=== PATIENT | female | born 1945 | race Caucasian/White ===

== ENCOUNTER 2016-09-17 12:15 | Emergency (ER) | payer OTHER ==
[~2016-09-17 12:15] MED LIST: CALC500C70 PO; CMBIN INH; ESOM20CA PO; FSM70 PO; MECL1TAB42 PO; MULT-190 PO; NITR0.4S UT; NXM/40 PO; STLS PO
[2016-09-17 12:21] VITALS: TEMP 36.6
[2016-09-17] MEDS ORDERED: ONDANSETRON INJ 2 MG/ML 2 ML VIAL IV STA (12:48)
[2016-09-17 12:58] LABS: BASO % 0.2 %; BASO ABS # 0.02 K/uL (0-0.2); COMPLETE YES; EOS % 0.1 %; HEMATOCRIT 46.3 % (37-47); IG% 0.2 %; LYMPH % 5.5 %; MEAN CORPUSCULAR HEMOGLOBIN 28.1 pg (25-34); MEAN PLATELET VOLUME 10.4 fL (7.4-10.4); MONO % 3.5 %; NEUT % 90.5 %; PLATELET COUNT 250 K/uL (130-400); RED BLOOD COUNT 5.26 M/uL (4.2-5.4); WHITE BLOOD COUNT 9.09 K/uL (4.8-10.8)
[2016-09-17 13:06] LABS: ALT/SGPT 13 U/L (12-78); BLOOD UREA NITROGEN 14 mg/dl (7-18); BUN/CREATININE RATIO 16.9 (10-20); CALCIUM 8.7 mg/dl (8.5-10.1); CARBON DIOXIDE 26 mmol/L (21-32); CHLORIDE 105 mmol/L (98-107); CREATININE 0.83 mg/dl (0.60-1.20); GLUCOSE 122 mg/dl (70-99); SODIUM 141 mmol/L (136-145)
[2016-09-17 13:09] LABS: PARTIAL THROMBOPLASTIN RATIO 1.1; PROTHROMBIN TIME (PATIENT) 10.7 SECONDS (9.0-12.0)
[2016-09-17 13:17] LABS: ALKALINE PHOSPHATASE 109 U/L (45-117); AST/SGOT 12 U/L (15-37); THYROID STIMULATING HORMONE 0.509 uIu/ml (0.300-4.500)
[2016-09-17] MEDS ORDERED: OPTIRAY 320 IV PRN (13:30)
--- NOTE | 2016-09-17 14:06 | DIAGNOSTIC IMAGING REPORT ---
CHEST 2 VIEWS ROUTINE CLINICAL HISTORY: eval for pnea chest pain COMPARISON STUDY: 03/16/2014 FINDINGS: Pelvic atelectasis left base. Lungs otherwise are clear. No evidence for cardiac enlargement. IMPRESSION: Platelike atelectasis left base. Otherwise negative study Electronically signed by: Johny Zee M.D. 09/17/2016 2:04 PM Dictated Date/Time: 09/17/2016 2:04 PM
[2016-09-17] MEDS ORDERED: SENNTAB23 PO (14:17)
[2016-09-17] MEDS ORDERED: IPRA1AER2 INH (14:17)
[2016-09-17] MEDS ORDERED: ZNTT/150 PO (14:18)
[2016-09-17] MEDS ORDERED: PANT40TA PO (14:18)
--- NOTE | 2016-09-17 16:10 | DIAGNOSTIC IMAGING REPORT ---
HEAD CT NONCONTRAST CT DOSE: HISTORY: Mental status change eval for cava TECHNIQUE: Multiaxial CT images of the head were performed without the use of intravenous contrast. Comparison: None. Findings: The paranasal sinuses and mastoid air cells are clear. The calvarium and skull base are intact. The ventricles and sulci are within normal limits. There is no mass, hematoma, midline shift, or acute infarct. Impression: No acute intracranial abnormality. Electronically signed by: Johny Zee M.D. 09/17/2016 4:08 PM Dictated Date/Time: 09/17/2016 4:08 PM
--- NOTE | 2016-09-17 16:16 | DIAGNOSTIC IMAGING REPORT ---
ABDOMEN AND PELVIS CT WITH IV AND ORAL CONTRAST CT DOSE: 1546.81 mGy.cm HISTORY: Pelvic pain eval for diver tic TECHNIQUE: Multiaxial CT images of the abdomen and pelvis were performed following the use of intravenous and oral contrast. COMPARISON STUDY: 10/29/2009 FINDINGS: Lung bases are clear. Small fixed lateral hernia. Liver spleen and pancreas are uniform. Prior cholecystectomy. Several renal peripelvic cysts unchanged in the prior study. No evidence for hydronephrosis. Bowel pattern is considered nonobstructive within the abdomen. Mild chronic sigmoid diverticulosis. No evidence for acute diverticulitis. Bladder is midline. IMPRESSION: Mild chronic sigmoid diverticulosis. 2. No evidence for acute diverticulitis. 3. Otherwise negative abdomen and pelvis post cholecystectomy Electronically signed by: Johny Zee M.D. 09/17/2016 4:15 PM Dictated Date/Time: 09/17/2016 4:12 PM
[2016-09-17 16:47] LABS: URINE APPEARANCE CLEAR (CLEAR); URINE BILIRUBIN NEG (NEG); URINE COLOR YELLOW; URINE NITRITE NEG (NEG); UROBILINOGEN NEG (NEG)
[2016-09-17 16:51] LABS: MANUAL MICROSCOPIC REQUIRED? NO; REVIEW REQ? NO
[2016-09-17 17:09] VITALS: BP 121/73; PULSE 84; O2SAT 95
--- NOTE | 2016-09-17 19:18 | EMERGENCY ROOM VISIT NOTE ---
History Report prepared by [place]: Isela Rosales Under the Supervision of: Dr. Deny Farmer M.D. First contact with patient: 12:33 Chief Complaint: ABDOMINAL PAIN Stated Complaint: ABD PAIN, DIZZY, EARS POPPING Nursing Triage Summary: Lightheaded and has not been able to keep anything down today. Dry heaves. History of Present Illness The patient is a 71 year old female who presents to the Emergency Room with complaints of intermittent dizziness beginning last night. The patient states that last night she felt like she was "drunk" but has not had any alcohol in a very long time. She states that she woke up in the middle of the night to go to the bathroom and felt very unsteady. She notes that she has a history of vertigo and took Meclizine last night without relief of her symptoms. The patient complains of lightheadedness, vomiting, unsteadiness, nausea, mild vertigo, dry heaving, chills, sweating, lower abdominal cramping on the left side, and mild diarrhea this morning that has now resolved. She denies any chest pain or tightness, shortness of breath, blood in stool, black stool, new urinary symptoms, changes in eating or drinking, numbness or weakness on one side of the body, and trouble with speech. The patient states that last night when she was feeling her abdomen she felt a lump on the left side and when she pushed on it, it went back inside of her and her pain went away. She notes that this has been happening for 6 months and returns every few days. She states that the sharp abdominal pain comes when she is raking or walking. 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 She states that her last colonoscopy was when she had her most recent hernia. She reports that she is on an inhaler 4x a day and notes that her overall symptoms improve when she is laying steady. Source of History: patient Onset: last night Position: other (global) Quality: other (dizziness) Timing: intermittent Modifying Factors (Relieving): other (laying steady) Associated Symptoms: + abdominal pain, + chills, + nausea, + vomiting, No SOB, No chest pain, No hematochezia, No melena, No numbness, No weakness Note: The patient complains of lightheadedness, unsteadiness, mild vertigo, dry heaving, sweating, lower abdominal cramping on the left side, and diarrhea this morning that has now resolved. She denies any blood in stool, black stool, changes in eating or drinking, and trouble with speech. Review of Systems See HPI for pertinent positives & negatives. A total of 10 systems reviewed and were otherwise negative. Past Medical & Surgical Medical Problems: (1) Asthma, Unspecified (2) Dehydration (3) Esophageal Reflux (4) Hypertension Nos (5) Loss of consciousness (6) Loss of consciousness (7) Lumb/Lumbosac Disc Degen (8) Macular Degeneration Nos (9) Nasal bone fracture (10) Nasal bone fracture (11) Nausea (12) Osteoporosis Nos (13) Vertigo (14) Vertigo (15) Vertigo (16) Vertigo Surgical Problems: (1) Knee joint replacement status Social History Problems: (1) Osteoporosis Nos Family History Diabetes mellitus Hypertension Social History Smoking Status: Never Smoker Alcohol Use: none Marital Status: Housing Status: lives alone Current/Historical Medications Scheduled Calcium/Vitamin D (Os-Lito 500 Plus D), 1 TAB PO BID Ipratropium-Albuterol (Combivent Respimat), 1 PUFFS INH QID Ocuvite Preservision (Ocuvite Preservision), 1 TAB PO BID Pantoprazole (Protonix), 40 MG PO DAILY Ranitidine (Zantac), 150 MG PO BID Sennosides-Docusate Sodium (Stool Softener), 3 TAB PO DAILY Scheduled PRN Meclizine Hcl (Meclizine Hcl), 25 MG PO TID PRN for DIZZY Nitroglycerin (Nitrostat), 0.4 MG UT PRN PRN for Heartburn Allergies Coded Allergies: Aspirin (Verified Adverse Reaction, Mild, ABD. PAIN AND VOMITING, 09/17/16) Physical Exam Vital Signs Date Time Temp Pulse Resp B/P Pulse Ox O2 Delivery O2 Flow Rate FiO2 09/17/16 17:09 84 20 121/73 95 Room Air 09/17/16 16:19 79 16 169/84 94 Room Air 09/17/16 14:09 78 18 165/88 96 Room Air 09/17/16 13:28 75 09/17/16 12:49 80 153/92 92 Room Air 90 158/93 91 160/94 09/17/16 12:21 36.6 76 18 143/85 96 Room Air Physical Exam Constitutional: Vital signs reviewed. Eyes: Pupils are equal round reactive to light. Conjunctiva are noninjected. ENT: Pharynx is clear without erythema or exudate. Mucous membranes are moist. Neck supple without meningeal signs. No carotid bruits. Respiratory: Clear to auscultation bilaterally. Breath sounds are equal bilaterally. Cardiovascular: Regular rate and rhythm. No rubs or gallops. GI: Soft, nondistended. Bowel sounds are present. LLQ tenderness, no guarding. Musculoskeletal: No peripheral edema. No lower extremity tenderness. Integumentary: No cyanosis. Neurological: The patient is awake and alert. Cranial nerves II-XII are intact. Motor is 5 out of 5 all extremities. Sensation is intact to light touch all extremities. Normal speech. No pronator drift. No dysdiadochokinesis. No limb ataxia. Psychiatric: Anxious. Medical Decision & Procedures ER Provider Diagnostic Interpretation: Other radiology results as stated below per my review and the radiologist's interpretation: HEAD CT NONCONTRAST Findings: The paranasal sinuses and mastoid air cells are clear. The calvarium and skull base are intact. The ventricles and sulci are within normal limits. There is no mass, hematoma, midline shift, or acute infarct. Impression: No acute intracranial abnormality. Electronically signed by: Johny Zee M.D. 09/17/2016 4:08 PM Dictated Date/Time: 09/17/2016 4:08 PM CHEST 2 VIEWS ROUTINE FINDINGS: Pelvic atelectasis left base. Lungs otherwise are clear. No evidence for cardiac enlargement. IMPRESSION: Platelike atelectasis left base. Otherwise negative study Electronically signed by: Johny Zee M.D. 09/17/2016 2:04 PM Dictated Date/Time: 09/17/2016 2:04 PM ABDOMEN AND PELVIS CT WITH IV AND ORAL CONTRAST FINDINGS: Lung bases are clear. Small fixed lateral hernia. Liver spleen and pancreas are uniform. Prior cholecystectomy. Several renal peripelvic cysts unchanged in the prior study. No evidence for hydronephrosis. Bowel pattern is considered nonobstructive within the abdomen. Mild chronic sigmoid diverticulosis. No evidence for acute diverticulitis. Bladder is midline. IMPRESSION: Mild chronic sigmoid diverticulosis. 2. No evidence for acute diverticulitis. 3. Otherwise negative abdomen and pelvis post cholecystectomy Electronically signed by: Johny Zee M.D. 09/17/2016 4:15 PM Dictated Date/Time: 09/17/2016 4:12 PM Laboratory Results 09/17/16 12:30 Red Blood Count 5.26, Mean Corpuscular Volume 88.0, Mean Corpuscular Hemoglobin 28.1, Mean Corpuscular Hemoglobin Concent 32.0, Mean Platelet Volume 10.4, Neutrophils (%) (Auto) 90.5, Lymphocytes (%) (Auto) 5.5, Monocytes (%) (Auto) 3.5, Eosinophils (%) (Auto) 0.1, Basophils (%) (Auto) 0.2, Neutrophils # (Auto) 8.22, Lymphocytes # (Auto) 0.50, Monocytes # (Auto) 0.32, Eosinophils # (Auto) 0.01, Basophils # (Auto) 0.02 09/17/16 12:30 Test 09/17/16 12:30 09/17/16 16:10 White Blood Count 9.09 K/uL (4.8-10.8) Red Blood Count 5.26 M/uL (4.2-5.4) Hemoglobin 14.8 g/dL (12.0-16.0) Hematocrit 46.3 % (37-47) Mean Corpuscular Volume 88.0 fL (80-100) Mean Corpuscular Hemoglobin 28.1 pg (25-34) Mean Corpuscular Hemoglobin Concent 32.0 g/dl (32-36) Platelet Count 250 K/uL (130-400) Mean Platelet Volume 10.4 fL (7.4-10.4) Neutrophils (%) (Auto) 90.5 % Lymphocytes (%) (Auto) 5.5 % Monocytes (%) (Auto) 3.5 % Eosinophils (%) (Auto) 0.1 % Basophils (%) (Auto) 0.2 % Neutrophils # (Auto) 8.22 K/uL (1.4-6.5) Lymphocytes # (Auto) 0.50 K/uL (1.2-3.4) Monocytes # (Auto) 0.32 K/uL (0.11-0.59) Eosinophils # (Auto) 0.01 K/uL (0-0.5) Basophils # (Auto) 0.02 K/uL (0-0.2) RDW Standard Deviation 50.2 fL (36.4-46.3) RDW Coefficient of Variation 15.6 % (11.5-14.5) Immature Granulocyte % (Auto) 0.2 % Immature Granulocyte # (Auto) 0.02 K/uL (0.00-0.02) Prothrombin Time 10.7 SECONDS (9.0-12.0) Prothromb Time International Ratio 1.0 (0.9-1.1) Activated Partial Thromboplast Time 28.5 SECONDS (21.0-31.0) Partial Thromboplastin Ratio 1.1 Anion Gap 10.0 mmol/L (3-11) Estimated GFR () 82.8 Estimated GFR (Non- 71.4 BUN/Creatinine Ratio 16.9 (10-20) Calcium Level 8.7 mg/dl (8.5-10.1) Total Bilirubin 0.6 mg/dl (0.2-1) Direct Bilirubin < 0.1 mg/dl (0-0.2) Aspartate Amino Transf (AST/SGOT) 12 U/L (15-37) Alanine Aminotransferase (ALT/SGPT) 13 U/L (12-78) Alkaline Phosphatase 109 U/L (45-117) Troponin I < 0.015 ng/ml (0-0.045) Total Protein 8.2 gm/dl (6.4-8.2) Albumin 4.1 gm/dl (3.4-5.0) Lipase 107 U/L (73-393) Thyroid Stimulating Hormone (TSH) 0.509 uIu/ml (0.300-4.500) Free Thyroxine 1.11 ng/dl (0.80-1.60) Urine Color YELLOW Urine Appearance CLEAR (CLEAR) Urine pH 7.0 (4.5-7.5) Urine Specific [place] 1.010 (1.000-1.030) Urine Protein NEG (NEG) Urine Glucose (UA) NEG (NEG) Urine Ketones NEG (NEG) Urine Occult Blood NEG (NEG) Urine Nitrite NEG (NEG) Urine Bilirubin NEG (NEG) Urine Urobilinogen NEG (NEG) Urine Leukocyte Esterase NEG (NEG) Laboratory results as reviewed by me. Medications Administered Medications (Trade) Dose Ordered Sig/Barb Route Start Time Stop Time Status Last Admin Dose Admin Ondansetron HCl (Zofran Inj) 4 mg NOW STAT IV 09/17/16 12:48 09/17/16 12:51 DC 09/17/16 13:09 4 MG ECG Indication: abdominal pain Rate (beats per minute): 79 Rhythm: normal sinus Findings: RBBB Comparison ECG Date: March 2014 Change: RBBB is old, QT has lengthened. ED Course 1233: The patient was evaluated in room B5. A complete history and physical exam was performed. 1248: Zofran Inj 4mg IV. 1605: I reevaluated the patient. She is feeling better and is no longer nauseous. She is still lightheaded when she sits up. 1636: According to the nurse the patient ambulated well without difficulty. The patient states that she is feeling better except for some slight dizziness when she stands up. I spoke to her about her test results. 1700: Upon reevaluation, the patient appeared to have improvement of her symptoms. I discussed tonight's findings with the patient. She verbalized agreement of the treatment plan. The patient was discharged home. Medical Decision This is a 71-year-old female who presents with dizziness and abdominal pain. Differential diagnosis includes benign positional vertigo, CVA, metabolic derangement, anemia, cardiac, diverticulitis, mass. I did perform a limited focused review of portions of the patient's old chart on the electronic medical record. The patient had an EGD in March of last year which showed a small hiatal hernia. I did evaluate the patient as noted above. The patient is presenting with dizziness and left lower quadrant abdominal pain. The patient has had abdominal pain for several months. She has not had any significant workup for this. She is tender in the left lower quadrant and so I will work her up for possible diverticulitis. She also complains of dizziness which she describes as a lightheadedness and vertigo feeling when she gets up and moves around. She does state she has a prior history of vertigo and took meclizine with only mild relief. She is neurologically intact on examination. She has no signs of stroke or any cerebellar signs. She has no carotid bruits. IV access was established. 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 We did obtain orthostatic vital signs. She is not orthostatic. I did treat her with Zofran IV. I did order and personally review the patient's 12-lead EKG and chest x-ray as described above. I did order and review the patient's blood work as noted in the electronic medical record. Her blood work is unremarkable. Troponin is negative. Electrolytes are unremarkable. TFTs are within normal limits. She is not anemic. I did order a CT of the head, abdomen and pelvis. I did review the images myself as well as the radiology report as described above. The head CT did not demonstrate any signs of acute abnormality or CVA. Abdominal and pelvis CT demonstrates diverticulosis without signs of diverticulitis. I did reexamine the patient. She is feeling better at this time. She is less dizzy. I did discuss the test results with her in detail. We did ambulate her and she was able to walk without difficulty according to the nurse. At this time the patient stated that she felt well enough for discharge. I did recommend she follow up closely with her doctor within 48 hours for reevaluation. She was given return instructions as outlined below. Impression Primary Impression: LLQ abdominal pain Additional Impressions: Dizziness Diverticulosis Scribe Attestation The scribe's documentation has been prepared under my direct and personally reviewed by me in its entirety. I confirm that the note above accurately reflects all work, treatment, procedures, and medical decision making performed by me. Departure Information Dispostion Home / Self-Care Forms HOME CARE DOCUMENTATION FORM, IMPORTANT VISIT INFORMATION Patient Instructions ED Abd Pain Unkn Cause Fem, ED Diverticulosis, ED Dizziness [facility] [place], [facility] Additional Instructions You have been examined and treated today on an emergency basis only. This is not a substitute for, or an effort to provide, complete comprehensive medical care. It is impossible to recognize and treat all injuries or illnesses in a single emergency department visit. It is therefore important that you follow up closely with your physician within 48 hours. Call as soon as possible for an appointment. Return for worsening symptoms or if you develop fever, vomiting, chest pain, shortness of breath, difficulty with your speech, numbness or weakness on one side of your body or any other concerning symptoms. Problem Qualifiers Additional Impressions: Diverticulosis Diverticulosis site: diverticulosis of large intestine Diverticulosis bleeding: diverticulosis without bleeding Qualified Codes: K57.30 - Diverticulosis of large intestine without perforation or abscess without bleeding
[2016-09-19] MEDS ORDERED: CHOL20007 PO (14:45)
[2016-10-05] MEDS ORDERED: TRAM-10 PO (14:45)
[2016-12-12] MEDS ORDERED: AMOX1TAB43 PO (12:20)
[2016-12-12] MEDS ORDERED: BCTO EXT (12:20)
[2016-12-12] MEDS ORDERED: DABI150C PO (14:14)
[2016-12-13] MEDS ORDERED: TRAM-10 PO (10:09)
[2017-01-02] MEDS ORDERED: VLTG EXT (11:33)
== END 2016-09-17 17:15 | disposition home or self-care (01) ==
LOC: C.EDB 12:16
DX: K57.30 Diverticulosis of large intestine without perforation or abscess without bleeding (principal); R42 Dizziness and giddiness; R68.83 Chills (without fever); R11.2 Nausea with vomiting, unspecified; J45.909 Unspecified asthma, uncomplicated; K21.9 Gastro-esophageal reflux disease without esophagitis; I10 Essential (primary) hypertension; Z79.899 Other long term (current) drug therapy

== ENCOUNTER → 2016-09-28 | Outpatient (CLI) | payer OTHER ==
[~2016-09-28] MED LIST changes: +AMIO200T4 PO; +AMOX1TAB43 PO; +BCTO EXT; +CHOL20007 PO; -CMBIN INH; +CRD200 PO; +DABI150C PO; -ESOM20CA PO; -FSM70 PO; +HYDR-5688 PO; +IPRA1AER2 INH; -NXM/40 PO; +PANT40TA PO; +SENNTAB23 PO; -STLS PO; +TRAM-10 PO; +VLTG EXT; +ZNTT/150 PO
--- NOTE | 2016-09-28 14:06 | DIAGNOSTIC IMAGING REPORT ---
MRI OF THE LUMBAR SPINE WITHOUT IV CONTRAST CLINICAL HISTORY: Lumbar radiculopathy. Left buttock pain. COMPARISON STUDY: Abdominal CT dated 09/17/2016. MRI of the lumbar spine dated 12/21/2010. TECHNIQUE: MRI of the lumbar spine is performed using various T1 and T2-weighted sequences in the axial and sagittal planes. IV contrast was not administered for this examination. FINDINGS: Lumbar spine: Vertebral body height and alignment are maintained throughout the lumbar spine. No destructive bony lesion is seen. Small hemangiomas are noted in the body of L4. The transverse and spinous processes appear intact. There is no evidence of spondylolysis. Intervertebral discs: There is mild degenerative disc desiccation throughout the lumbar spine. The disc heights appear maintained. Spinal cord: Visualized spinal cord is normal in morphology and signal intensity. The conus medullaris terminates at the level of L2. The nerve roots of the cauda equina are normal in morphology. L1-L2: There is minimal posterior disc bulge. The central canal and neural foramina are widely patent. L2-L3: Unremarkable. L3-L4: Facet arthropathy causes mild left neural foraminal stenosis. The central canal is widely patent. L4-L5: There is posterior disc bulge. In conjunction with hypertrophy of the ligamentum flavum, there is minimal acquired compromise of the central canal. The minimum AP diameter measures 9 mm. There is mild bilateral subarticular stenosis. Facet arthropathy causes minimal left-sided neural foraminal narrowing. L5-S1: The central canal is widely patent. Facet arthropathy causes minimal bilateral neural foraminal stenosis. Sacrum: No acute sacral abnormality is identified. There is contour deformity involving S2 consistent with remote fracture. Soft tissues: There is mild fatty atrophy of the paraspinous muscular. The partially imaged kidneys demonstrate cortical atrophy. Parapelvic cysts are noted. IMPRESSION: 1. No acute bony abnormality or marrow replacement process is identified in the lumbar spine. 2. Mild spondylotic change as above. There is minimal acquired compromise of the central canal at L4-L5. See discussion for detailed [id number] analysis. 3. There is contour deformity from a remote sacral fracture. Dictated: 09/28/2016 1:54 PM Transcribed: 09/28/2016 2:05 PM Nathan Electronically signed by: Patricio Arzate M.D. 09/28/2016 2:06 PM Dictated Date/Time: 09/28/2016 1:54 PM
== END | disposition home or self-care (01) ==
LOC: C.MRI 13:00
PROVIDERS: ATTEND Anesthesiology
DX: M54.16 Radiculopathy, lumbar region (principal); M43.8X8 Other specified deforming dorsopathies, sacral and sacrococcygeal region; Z87.828 Personal history of other (healed) physical injury and trauma

== ENCOUNTER 2016-11-12 09:23 | Inpatient (IN) | payer OTHER ==
[~2016-11-12] VITALS: Ht 154.9 cm; Wt 82.8 kg
[2016-11-12] VITALS (11 sets, daily range): BP systolic 111–149; BP diastolic 61–86; PULSE 74–95; TEMP 36.7–36.9; O2SAT 93–99; BMI 34.2
[~2016-11-12 09:23] MED LIST changes: -AMIO200T4 PO; -AMOX1TAB43 PO; -BCTO EXT; -CRD200 PO; -DABI150C PO; -HYDR-5688 PO; -VLTG EXT
[2016-11-12] MEDS ORDERED: SODIUM CHLORIDE 0.9% 1000ML 1,000 ML IV STA (09:43)
[2016-11-12] MEDS ORDERED: ONDANSETRON INJ 2 MG/ML 2 ML VIAL IV STA (09:43)
[2016-11-12] MEDS ORDERED: SODIUM CHLORIDE 0.9% 250ML 250 ML IV STA (09:43)
--- NOTE | 2016-11-12 09:49 | EMERGENCY ROOM VISIT NOTE ---
History Report prepared by Meeibjackelin: Tere Hutton Under the Supervision of: Dr. Ramonita Christianson M.D. First contact with patient: 09:33 Chief Complaint: SYNCOPE (NEAR SYNCOPE) Stated Complaint: PASSED OUT History of Present Illness The patient is a 71 year old female who presents to the Emergency Room with complaints of an episode of syncope that occurred earlier this morning. She states she started to feel lightheaded last night, but didn't think much of it and went to bed early. This morning, she went to the bathroom where she experienced a loose bowel movement and felt nauseated and "wobbly". She then lost consciousness, but does not know how long she was out for. She also complains of right knee pain and notes she hit the knee during the fall. She also experienced some palpitations earlier today. She denies any chest pain or shortness of breath. She denies any recent melena or hematochezia. The patient reports she had been out of state, in [place], until approximately 5 days ago. She admits she has experienced similar syncopal episodes in the past and has been seen here for them. Source of History: patient Onset: earlier this morning Position: other (global) Timing: resolved Associated Symptoms: + LOC, + diarrhea, + nausea, No SOB, No chest pain, No hematochezia, No melena Review of Systems See HPI for pertinent positives & negatives. A total of 10 systems reviewed and were otherwise negative. Past Medical & Surgical Medical Problems: (1) Asthma, Unspecified (2) Complete heart block (3) Dehydration (4) Esophageal Reflux (5) Hypertension Nos (6) Loss of consciousness (7) Loss of consciousness (8) Lumb/Lumbosac Disc Degen (9) Macular Degeneration Nos (10) Nasal bone fracture (11) Nasal bone fracture (12) Nausea (13) Osteoporosis Nos (14) Vertigo (15) Vertigo (16) Vertigo (17) Vertigo Surgical Problems: (1) Knee joint replacement status Social History Problems: (1) Osteoporosis Nos Family History Diabetes mellitus Hypertension Social History Smoking Status: Former Smoker Alcohol Use: none Drug Use: none Marital Status: Housing Status: lives alone Occupation Status: retired Current/Historical Medications Scheduled Calcium/Vitamin D (Os-Lito 500 Plus D), 1 TAB PO BID Cholecalciferol (Vitamin D3), 1 TAB PO DAILY Ipratropium-Albuterol (Combivent Respimat), 1 PUFFS INH QID Ocuvite Preservision (Ocuvite Preservision), 1 TAB PO BID Pantoprazole (Protonix), 40 MG PO DAILY Ranitidine (Zantac), 150 MG PO BID Sennosides-Docusate Sodium (Stool Softener), 3 TAB PO DAILY Scheduled PRN Meclizine Hcl (Meclizine Hcl), 25 MG PO TID PRN for DIZZY Nitroglycerin (Nitrostat), 0.4 MG UT PRN PRN for Heartburn Tramadol (Ultram), 1 TAB PO BID PRN for Pain Allergies Coded Allergies: Aspirin (Verified Adverse Reaction, Mild, ABD. PAIN AND VOMITING, 11/12/16) Physical Exam Vital Signs Date Time Temp Pulse Resp B/P Pulse Ox O2 Delivery O2 Flow Rate FiO2 11/12/16 11:56 73 18 131/89 100 Room Air 11/12/16 10:56 78 18 164/83 100 Nasal Cannula 2.0 11/12/16 10:22 72 16 168/92 100 Nasal Cannula 2.0 11/12/16 10:16 100 Nasal Cannula 2.0 11/12/16 10:11 64 150/78 80 157/87 56 179/103 11/12/16 09:26 36.4 71 18 151/82 96 Room Air Physical Exam Vital signs reviewed. General: Elderly, well-appearing 71 year old female, in no significant distress. HEENT: No scleral icterus, PERRLA, neck supple. Atraumatic. Cardiovascular: Regular rate and rhythm, no extra sounds. Pulmonary: Clear to auscultation bilaterally, normal work of breathing. Abdomen: Soft, nontender, nondistended, positive bowel sounds. Musculoskeletal: Atraumatic, no peripheral edema. Neurologic: Patient awake alert and oriented x 3, full strength in all 4 extremities. Cranial nerves 2 through 12 grossly intact. Skin: Warm, dry, no rash Medical Decision & Procedures ER Provider Diagnostic Interpretation: These CT scans were reviewed and interpreted by the radiologist and reviewed by myself. CT ANGIOGRAPHY OF THE CHEST, PULMONARY EMBOLUS PROTOCOL IMPRESSION: 1. No pulmonary emboli identified. 2. No acute intrathoracic findings. Electronically signed by: Doug Schuler M.D. 11/12/2016 11:[address] OF THE HEAD WITHOUT CONTRAST IMPRESSION: 1. No acute intracranial findings. 2. No calvarial fracture. Electronically signed by: Doug Schuler M.D. 11/12/2016 10:54 AM Laboratory Results 11/12/16 09:40 Red Blood Count 5.17, Mean Corpuscular Volume 86.8, Mean Corpuscular Hemoglobin 26.9, Mean Corpuscular Hemoglobin Concent 31.0, Mean Platelet Volume 9.9, Neutrophils (%) (Auto) 87.1, Lymphocytes (%) (Auto) 6.3, Monocytes (%) (Auto) 5.4, Eosinophils (%) (Auto) 0.7, Basophils (%) (Auto) 0.3, Neutrophils # (Auto) 8.45, Lymphocytes # (Auto) 0.61, Monocytes # (Auto) 0.52, Eosinophils # (Auto) 0.07, Basophils # (Auto) 0.03 11/12/16 09:40 Test 11/12/16 09:40 11/12/16 09:48 White Blood Count 9.70 K/uL (4.8-10.8) Red Blood Count 5.17 M/uL (4.2-5.4) Hemoglobin 13.9 g/dL (12.0-16.0) Hematocrit 44.9 % (37-47) Mean Corpuscular Volume 86.8 fL (80-100) Mean Corpuscular Hemoglobin 26.9 pg (25-34) Mean Corpuscular Hemoglobin Concent 31.0 g/dl (32-36) Platelet Count 212 K/uL (130-400) Mean Platelet Volume 9.9 fL (7.4-10.4) Neutrophils (%) (Auto) 87.1 % Lymphocytes (%) (Auto) 6.3 % Monocytes (%) (Auto) 5.4 % Eosinophils (%) (Auto) 0.7 % Basophils (%) (Auto) 0.3 % Neutrophils # (Auto) 8.45 K/uL (1.4-6.5) Lymphocytes # (Auto) 0.61 K/uL (1.2-3.4) Monocytes # (Auto) 0.52 K/uL (0.11-0.59) Eosinophils # (Auto) 0.07 K/uL (0-0.5) Basophils # (Auto) 0.03 K/uL (0-0.2) RDW Standard Deviation 50.8 fL (36.4-46.3) RDW Coefficient of Variation 15.9 % (11.5-14.5) Immature Granulocyte % (Auto) 0.2 % Immature Granulocyte # (Auto) 0.02 K/uL (0.00-0.02) Anion Gap 6.0 mmol/L (3-11) Est Creatinine Clear Calc Drug Dose 61.9 ml/min Estimated GFR () 84.0 Estimated GFR (Non- 72.5 BUN/Creatinine Ratio 13.5 (10-20) Calcium Level 8.6 mg/dl (8.5-10.1) Magnesium Level 2.4 mg/dl (1.8-2.4) Total Bilirubin 0.5 mg/dl (0.2-1) Direct Bilirubin < 0.1 mg/dl (0-0.2) Aspartate Amino Transf (AST/SGOT) 11 U/L (15-37) Alanine Aminotransferase (ALT/SGPT) 14 U/L (12-78) Alkaline Phosphatase 95 U/L (45-117) Total Creatine Kinase 65 U/L (26-192) Creatine Kinase MB 1.0 ng/ml (0.5-3.6) Creatine Kinase MB Ratio 1.5 (0-3.0) Total Protein 7.5 gm/dl (6.4-8.2) Albumin 3.7 gm/dl (3.4-5.0) Lipase 115 U/L (73-393) Bedside D-Dimer > 450 ng/mlFEU (0-450) Bedside Troponin I 0.000 ng/ml (0-0.045) Laboratory results per my review. Medications Administered Medications (Trade) Dose Ordered Sig/Barb Route Start Time Stop Time Status Last Admin Dose Admin Sodium Chloride (Nss 250ml) 250 ml @ 999 mls/hr Q16M STAT IV 11/12/16 09:43 11/12/16 09:58 DC 11/12/16 09:43 999 MLS/HR Ondansetron HCl (Zofran Inj) 4 mg NOW STAT IV 11/12/16 09:43 11/12/16 09:46 DC 11/12/16 10:16 4 MG ECG Indication: syncope Rate (beats per minute): 65 Rhythm: normal sinus (normal sinus rhythm) Findings: RBBB, no acute ischemic change, other (left atrial enlargement) Change: 2nd EKG after syncopal episode: Normal sinus rhythm, rate of 68, left atrial enlargement, RBBB, no acute ischemia, no significant change from previous EKG. ED Course 0942: Past medical records reviewed. The patient was evaluated in room A2. A complete history and physical examination was performed. 0943: Zofran 4 mg IV, NSS 1000 ml @ 125 mls/hr IV, NSS 250 ml @ 999 mls/hr IV. 1015: Nursing informed me the patient passed out when they tried to stand her up. 1016: I reevaluated the patient. She had a brief episode of near syncope but was uninjured and is now resting comfortably. 1020: A rhythm strip was obtained after the patient's syncopal episode and the patient appears to have a 3rd degree heart block that has resolved. 1104: I discussed the patients case with Dr. Dugan [facility] Hospitalist. The patient will be further evaluated. 1154: I discussed the patients case with Dr. Mendoza [facility] Cardiology. He recommends outpatient follow up. Medical Decision DDx: Etiologies such as vasovagal event, infection, hypoglycemia, electrolyte abnormalities, cardiac sources, intracerebral event, toxicologic, neurologic, as well as others were entertained. This patient was evaluated and appeared to be in no significant distress. Physical examination is fairly unrevealing. Laboratory work is significant only for an elevated d-dimer. Orthostatic vital signs were performed and upon standing the patient had an episode of third degree heart block. Nursing staff placed the patient back in the bed without incident. Repeat EKG was performed and reveals a sinus rhythm. The patient felt well on my reevaluation. She was discussed with the hospitalist service who will evaluate for further management. The CT scan of the chest was negative for PE. Dr. Mendoza of cardiology was consulted and will evaluate the patient for pacemaker placement. Consults Time Called: 1059 Consulting Physician: Dr. Dugan [facility] Hospitalist Returned Call: 1103 I discussed the patients case with Dr. Dugan [facility] Hospitalist. The patient will be further evaluated. Additional Consults: Time Called: 1152 Consulted Physician: Dr. Mendoza [facility] Cardiology Returned Call: 1154 Additional Comments: I discussed the patients case with Dr. Mendoza, [facility] Cardiology. He recommends outpatient follow up. Impression Primary Impression: Syncope Additional Impression: Complete heart block Scribe Attestation The scribe's documentation has been prepared under my direction and personally reviewed by me in its entirety. I confirm that the note above accurately reflects all work, treatment, procedures, and medical decision making performed by me. Departure Information Dispostion Being Evaluated By Hospitalist Referrals Hannah Marshall, C.R.N.P (PCP) Patient Instructions My [facility] Problem Qualifiers
[2016-11-12 09:53] LABS: BASO % 0.3 %; BASO ABS # 0.03 K/uL (0-0.2); COMPLETE YES; EOS % 0.7 %; HEMATOCRIT 44.9 % (37-47); IG% 0.2 %; LYMPH % 6.3 %; LYMPH ABS # 0.61 K/uL (1.2-3.4); MEAN CELL VOLUME 86.8 fL (80-100); MEAN CORPUSCULAR HEMOGLOBIN 26.9 pg (25-34); MEAN PLATELET VOLUME 9.9 fL (7.4-10.4); MONO % 5.4 %; NEUT % 87.1 %; PLATELET COUNT 212 K/uL (130-400); RED BLOOD COUNT 5.17 M/uL (4.2-5.4)
[2016-11-12 10:10] LABS: ALT/SGPT 14 U/L (12-78); BLOOD UREA NITROGEN 11 mg/dl (7-18); BUN/CREATININE RATIO 13.5 (10-20); CALCIUM 8.6 mg/dl (8.5-10.1); CARBON DIOXIDE 28 mmol/L (21-32); CHLORIDE 109 mmol/L (98-107); CREATININE 0.82 mg/dl (0.60-1.20); GLUCOSE 119 mg/dl (70-99); MAGNESIUM 2.4 mg/dl (1.8-2.4); POTASSIUM 4.1 mmol/L (3.5-5.1); SODIUM 143 mmol/L (136-145)
[2016-11-12 10:13] LABS: ALKALINE PHOSPHATASE 95 U/L (45-117); AST/SGOT 11 U/L (15-37); CKMB/CK RATIO 1.5 (0-3.0)
[2016-11-12] MEDS ORDERED: OPTIRAY 320 IV PRN (10:30)
--- NOTE | 2016-11-12 10:55 | DIAGNOSTIC IMAGING REPORT ---
CT OF THE HEAD WITHOUT CONTRAST CLINICAL HISTORY: Syncope, fall, head injury. COMPARISON STUDY: Head CT September 17, 2016. TECHNIQUE: Helical axial images of the head were obtained without IV contrast. Automated exposure control was utilized for the study. FINDINGS: No acute intracranial hemorrhage, midline shift or mass effect is present. Ventricular system is normal. The basilar cisterns are patent. There are no extra-axial collections. Bilateral basal ganglia calcification is present. There are no CT findings to suggest acute dural sinus thrombosis or acute territorial infarct. There is no calvarial fracture. IMPRESSION: 1. No acute intracranial findings. 2. No calvarial fracture. Electronically signed by: Doug Schuler M.D. 11/12/2016 10:54 AM Dictated Date/Time: 11/12/2016 10:50 AM
--- NOTE | 2016-11-12 11:08 | DIAGNOSTIC IMAGING REPORT ---
CT ANGIOGRAPHY OF THE CHEST, PULMONARY EMBOLUS PROTOCOL CLINICAL HISTORY: Syncope. Elevated d-dimer. Third degree heart block. COMPARISON STUDY: Chest radiograph September 17, 2016 TECHNIQUE: Following IV administration of 89 mL of Optiray-320, helical axial images of the chest were obtained utilizing the pulmonary embolus protocol. Maximal intensity projections and sagittal and coronal reformats were viewed on an independent 3D workstation. IV contrast was administered without complication. CT DOSE: 964.60 mGy.cm FINDINGS: No pulmonary emboli are identified. There is no evidence of thoracic aortic dissection. The size of the heart is at the upper limits of normal. There are no enlarged thoracic lymph nodes. Central airways are patent. There are no areas of consolidation. No pneumothorax or pleural effusion is present. There may be a small hiatal hernia. IMPRESSION: 1. No pulmonary emboli identified. 2. No acute intrathoracic findings. Electronically signed by: Doug Schuler M.D. 11/12/2016 11:06 AM Dictated Date/Time: 11/12/2016 10:59 AM
--- NOTE | 2016-11-12 11:48 | DIAGNOSTIC IMAGING REPORT ---
RIGHT KNEE 1 OR 2 VIEWS ROUTINE CLINICAL HISTORY: Right knee pain following fall. COMPARISON: None FINDINGS: Alignment of the total right knee arthroplasty is anatomic. There is no periprosthetic fracture. There is a small right knee joint effusion. IMPRESSION: 1. No periprosthetic fracture. Anatomic alignment of right knee arthroplasty. 2. Suspected small right knee joint effusion. Electronically signed by: Doug Schuler M.D. 11/12/2016 11:46 AM Dictated Date/Time: 11/12/2016 11:45 AM
--- NOTE | 2016-11-12 11:52 | DIAGNOSTIC IMAGING REPORT ---
PA CHEST RADIOGRAPH AND LEFT LATERAL DECUBITUS AND SUPINE AP RADIOGRAPHS OF THE ABDOMEN CLINICAL HISTORY: Diarrhea. Syncope. COMPARISON STUDY: Chest radiograph and CT of the abdomen and pelvis September 17, 2016. FINDINGS: Lung volumes are normal. There is no pneumothorax or pleural effusion. Cardiac size is normal. There is no consolidation. No free air is present on the left lateral to this image. There are cholecystectomy clips and a right femoral internal fixation. There is contrast within the bladder from recent contrast-enhanced CT. Bowel gas pattern is unremarkable. A few prominent loops of gas-filled colon within the right abdomen are unchanged. IMPRESSION: 1. No free air or evidence of bowel obstruction. 2. No acute cardiopulmonary findings. Electronically signed by: Doug Schuler M.D. 11/12/2016 11:51 AM Dictated Date/Time: 11/12/2016 11:47 AM
[2016-11-12] MEDS ORDERED: NITROGLYCERIN 0.4 MG SL PER TAB CHARGE SL PRN (12:15)
[2016-11-12] MEDS ORDERED: ALUMINUM/MAGNESIUM/SIMETH (MAALOX MAX) 30 ML UDC PO PRN (12:15)
[2016-11-12] MEDS ORDERED: MAGNESIUM HYDROXIDE SUSP 30 ML UDC PO PRN (12:15)
[2016-11-12 13:30] LABS: CHOLESTEROL/HDL RATIO 3.8; THYROID STIMULATING HORMONE 0.564 uIu/ml (0.300-4.500)
[2016-11-12 13:41] LABS: PROTHROMBIN TIME (PATIENT) 10.6 SECONDS (9.0-12.0)
--- NOTE | 2016-11-12 15:04 | Critical Care Consultation ---
Critical Care Consultation Date of Consultation: Nov 12, 2016. Attending Physician: Stephanie Alexander MD Reason for Consultation: Complete heart block History of Present Illness The patient is a very pleasant 8-year-old female who presents to the ED this morning after an episode of syncope. She notes that occurred when she is going to the bathroom. She also states that she had an episode of palpitations earlier in the day which resolved on its own so she did not do anything further about it. She states she had a bowel movement, felt lightheaded and nauseous and proceeded to lose consciousness. Before so she does not know how long she lost consciousness for. Waking up she did complain of some soreness in the knee that she suspect occurs when she fell. She does state that in March of 2014, she had one similar symptoms at home, but they resolved on their own and she never sought treatment for it. She never felt any chest pain, short of breath. She is not on any coughing or wheezing. Apart from hypertension, the patient denies any other cardiac disease or cardiovascular risk factors. She's never had a heart attack, she denies having history of congestive heart failure. She's never had stenting or CABG. She did have an echo in which showed an ejection fraction of 60-65%. There is no history of aortic stenosis. Of note she does have a history of vertigo for which she is on meclizine. She denies any recent fevers, chills, night sweats. Her appetite has been good. She has had no difficulty with voiding including urination or bowel movements. She has had no major changes in her weight On arrival to the emergency department, she was noted to be in complete heart block. She was transferred to the ICU, for intensive cardiac monitoring and needs to be evaluated for transcutaneous versus venous pacing. Past Medical/Surgical History Medical Problems: (1) Asthma, Unspecified (2) Complete heart block (3) Dehydration (4) Esophageal Reflux (5) Hypertension Nos (6) Loss of consciousness (7) Loss of consciousness (8) Lumb/Lumbosac Disc Degen (9) Macular Degeneration Nos (10) Nasal bone fracture (11) Nasal bone fracture (12) Nausea (13) Osteoporosis Nos (14) Vertigo (15) Vertigo (16) Vertigo (17) Vertigo Surgical Problems: (1) Knee joint replacement status Social History Problems: (1) Osteoporosis Nos Family History Diabetes mellitus Hypertension Social History Smoking Status: Former Smoker Drug Use: none Marital Status: Housing Status: lives alone Occupation Status: retired Allergies Coded Allergies: Aspirin (Verified Adverse Reaction, Mild, ABD. PAIN AND VOMITING, 11/12/16) Home Medications Scheduled Calcium/Vitamin D (Os-Lito 500 Plus D), 1 TAB PO BID Cholecalciferol (Vitamin D3), 1 TAB PO DAILY Ipratropium-Albuterol (Combivent Respimat), 1 PUFFS INH QID Ocuvite Preservision (Ocuvite Preservision), 1 TAB PO BID Pantoprazole (Protonix), 40 MG PO DAILY Ranitidine (Zantac), 150 MG PO BID Sennosides-Docusate Sodium (Stool Softener), 3 TAB PO DAILY Scheduled PRN Meclizine Hcl (Meclizine Hcl), 25 MG PO TID PRN for DIZZY Nitroglycerin (Nitrostat), 0.4 MG UT PRN PRN for Heartburn Tramadol (Ultram), 1 TAB PO BID PRN for Pain Current Inpatient Medications Current Inpatient Medications Medications (Trade) Dose Ordered Sig/Barb Route Start Time Stop Time Status Last Admin Dose Admin Ioversol (Optiray 320) 125 ml UD PRN IV 11/12/16 10:30 11/16/16 10:29 Heparin Sodium (Porcine) 5000 unit 5,000 unit Q12 SQ 11/12/16 21:00 12/12/16 20:59 Sodium Chloride (Nss 1000ml) 1,000 ml @ 100 mls/hr Q10H IV 11/12/16 12:04 12/12/16 12:03 Acetaminophen (Tylenol Tab) 650 mg Q4H PRN PO 11/12/16 12:15 12/12/16 12:14 Nitroglycerin (Nitrostat Tab) 0.4 mg UD PRN SL 11/12/16 12:15 12/12/16 12:14 Aspirin (Ecotrin Tab) 325 mg QAM PO 11/13/16 09:00 12/13/16 08:59 Al Hydrox/Mg Hydrox/Simethicone (Maalox Max Susp) 15 ml Q4H PRN PO 11/12/16 12:15 12/12/16 12:14 Magnesium Hydroxide (Milk Of Magnesia Susp) 30 ml Q12H PRN PO 11/12/16 12:15 12/12/16 12:14 Ranitidine HCl (zANTac TAB) 150 mg BID PO 11/12/16 21:00 12/12/16 20:59 Review of Systems Constitutional: No chills, No fever, No sweats ENT: No hearing loss, No sore throat, No tinnitus Respiratory: No cough, No sputum, No wheezing Cardiovascular: No chest pain Abdomen: No constipation, No diarrhea, No nausea, No pain, No vomiting Genitourinary - Female: No dysuria, No urinary frequency Hematologic / Lymphatic: No abnormal bleeding/bruising Integumentary: No itch, No new/changing skin lesions, No rash Physical Exam Date Time Temp Pulse Resp B/P Pulse Ox O2 Delivery O2 Flow Rate FiO2 11/12/16 13:26 36.7 76 18 99 Nasal Cannula 2.0 11/12/16 12:52 68 18 132/88 99 11/12/16 11:56 73 18 131/89 100 Room Air 11/12/16 10:56 78 18 164/83 100 Nasal Cannula 2.0 11/12/16 10:22 72 16 168/92 100 Nasal Cannula 2.0 11/12/16 10:16 100 Nasal Cannula 2.0 11/12/16 10:11 64 150/78 80 157/87 56 179/103 11/12/16 09:26 36.4 71 18 151/82 96 Room Air General Appearance: well-appearing, WD/WN Eyes: EOMI, sclerae normal, conjunctivae normal ENT: normal ear exam, normal nasal exam, normal mouth exam Neck: normal range of motion, no tenderness, trachea midline Respiratory: breath sounds normal Cardiovasular: regular rate/rhythm, normal S1S2, no murmur Abdomen: non tender, no masses, no guarding Back: normal inspection, no midline tenderness, no CVA tenderness Upper Extremities: no edema Lower Extremities: no edema Neuro: alert, oriented x 3 Psychiatric: normal affect Laboratory Results Last 24 Hours Test 11/12/16 09:40 11/12/16 09:48 11/12/16 13:19 White Blood Count 9.70 K/uL Red Blood Count 5.17 M/uL Hemoglobin 13.9 g/dL Hematocrit 44.9 % Mean Corpuscular Volume 86.8 fL Mean Corpuscular Hemoglobin 26.9 pg Mean Corpuscular Hemoglobin Concent 31.0 g/dl Platelet Count 212 K/uL Mean Platelet Volume 9.9 fL Neutrophils (%) (Auto) 87.1 % Lymphocytes (%) (Auto) 6.3 % Monocytes (%) (Auto) 5.4 % Eosinophils (%) (Auto) 0.7 % Basophils (%) (Auto) 0.3 % Neutrophils # (Auto) 8.45 K/uL Lymphocytes # (Auto) 0.61 K/uL Monocytes # (Auto) 0.52 K/uL Eosinophils # (Auto) 0.07 K/uL Basophils # (Auto) 0.03 K/uL RDW Standard Deviation 50.8 fL RDW Coefficient of Variation 15.9 % Immature Granulocyte % (Auto) 0.2 % Immature Granulocyte # (Auto) 0.02 K/uL Sodium Level 143 mmol/L Potassium Level 4.1 mmol/L Chloride Level 109 mmol/L Carbon Dioxide Level 28 mmol/L Anion Gap 6.0 mmol/L Blood Urea Nitrogen 11 mg/dl Creatinine 0.82 mg/dl Est Creatinine Clear Calc Drug Dose 61.9 ml/min Estimated GFR () 84.0 Estimated GFR (Non- 72.5 BUN/Creatinine Ratio 13.5 Random Glucose 119 mg/dl Calcium Level 8.6 mg/dl Magnesium Level 2.4 mg/dl Total Bilirubin 0.5 mg/dl Direct Bilirubin < 0.1 mg/dl Aspartate Amino Transf (AST/SGOT) 11 U/L Alanine Aminotransferase (ALT/SGPT) 14 U/L Alkaline Phosphatase 95 U/L Total Creatine Kinase 65 U/L Creatine Kinase MB 1.0 ng/ml Creatine Kinase MB Ratio 1.5 Total Protein 7.5 gm/dl Albumin 3.7 gm/dl Triglycerides Level 221 mg/dl Cholesterol Level 198 mg/dl HDL Cholesterol 52 mg/dl LDL Cholesterol, Calculated 102 mg/dl VLDL Cholesterol, Calculated 44 mg/dl Cholesterol/HDL Ratio 3.8 Lipase 115 U/L Thyroid Stimulating Hormone (TSH) 0.564 uIu/ml Bedside D-Dimer > 450 ng/mlFEU Bedside Troponin I 0.000 ng/ml Prothrombin Time 10.6 SECONDS Prothromb Time International Ratio 1.0 Activated Partial Thromboplast Time 27.2 SECONDS Partial Thromboplastin Ratio 1.0 Diagnostic Results Normal sinus rhythm Possible Left atrial enlargement Right bundle branch block Abnormal ECG When compared with ECG of 12-NOV-2016 09:35, (unconfirmed) No significant change was found Assessment & Plan Pleasant 8-year-old female, who presents with a syncopal episode, and to be in complete heart block in the emergency room. She requires admission to the ICU, for cardiac monitoring. Since arriving to the floor she remains in sinus rhythm. She is chest pain-free, and denies any lightheadedness, dizziness or palpitations. Her problem list includes: - Complete heart block with syncope - Reactive airway disease, otherwise unspecified - Gastro-esophageal reflux disease - Hypertension - Macular degeneration - Osteoporosis - History of vertigo Neurology - GCS 15 - CAM ICU negative - Patient mentating normally. No action needed at this time. Assess daily - History of vertigo: Continue meclizine when necessary - Patient takes tramadol when necessary for pain at home; we can continue this in the ICU setting Cardiac - The patient is currently hemodynamically stable - Cardiology consulted - Echocardiogram ordered - Troponin negative; will continue to trend - Keep monitor at bedside; they need for possible for trans-cutaneous pacing Appreciate recommendations on possible need for transvenous permanent pacemaker Respiratory - Patient has a normal respiratory rate and is currently saturating on room air - Reactive airway disease: Continue Combivent inhaler - Positive d-dimer: CT scan of the lungs was negative Will order Doppler ultrasound of lower extremities Gastrointestinal - GERD: Ranitidine 150 by mouth twice a day Patient also gets Protonix 40 daily according to home med list. Does not need dual agents at this time so will not continue this for now - Diet: The patient will be kept nothing by mouth, in case she needs to have a transvenous pacer emergently placed - Bowel regimen: Senna, milk of magnesia Renal/ Genitourinary / Endocrine - No gross molecular abnormalities at this time - Creatinine 0.82 - Monitor daily urine output: Goal > 0.5 mL/KG/hour - No history of diabetes; can follow daily blood sugars - Osteoporosis: Continue calcium and vitamin D Hematology/Infectious Diseases - Afebrile - WBC 9.7 - Hemoglobin 13.9, hematocrit 44.9 - Platelets 212 - No evidence of infection at this time - DVT prophylaxis: Heparin 5000 subcutaneous 3 times a day CODE STATUS - Level I full code Disposition - ICU for cardiac monitoring, and possible need for pacing Resident Physician Supervision Note: Dr. Posadas was resident physician during care of patient. I separately evaluated patient and did history and exam. I discussed the case with the resident and generally agree with the findings and plan. Patient consented for CVL and transvenous pacing should it be required. Discussed with cardiology, strict bed rest as heart block appears to be preceded or precipitated by vagal response. I have personally spent 36 minutes of critical care time in the direct management of this patient. This is a life/limb threatening event. This includes time spent evaluating patient, direct bedside care, chart review, placing orders, interpretation of diagnostic studies, discussion with consultants, patient, and family members, as well as other required patient management activities. This time is exclusive of all separately billable procedures, and teaching time and separate from and in addition to any other critical care service time. Documented By: Cesar Flores DO
[2016-11-12 15:08] LABS: LYME DISEASE AB IGG NEG (NEG); LYME DISEASE AB IGM NEG (NEG)
--- NOTE | 2016-11-12 16:10 | ECHOCARDIOGRAM REPORT ---
*NOTICE TO RECEIVING [employer] This information is strictly Confidential and protected under [place] law. [place] law prohibits you from making any further disclosure of this information unless further disclosure is expressly permitted by the written consent of the person to whom it pertains or is authorized by law. A general authorization for the release of medical or other information is not sufficient for this purpose. Hospital accepts no responsibility if the information is made available to any other person, INCLUDING THE PATIENT. Interpretation Summary * Name: MOR BARRIGA Study Date: 11/12/2016 02:35 PM BP: 132/88 mmHg * Patient Location: .MSICU\S\E104\S\1 HR: 68 * : 1945 (M/d/y) Gender: Female Height: 61 in * Age: 71 yrs Ethnicity: CA Weight: 180 lb * Ordering Physician: Stephanie Alexander * Performed By: Eveline Pichardo RDCS * * Reason For Study: Syncope * BSA: 1.8 m2 * -- Conclusions -- * 1. Normal left ventricular size with hyperdynamic systolic function. EF 65-70%. No regional wall motion abnormalities. Mild concentric left ventricular hypertrophy. Type 1 diastolic dysfunction. * 2. There is moderate right ventricular hypertrophy. * 3. No significant valvular abnormalities visualized. * 4. No significant change from prior study on 03/17/2014. Procedure Details * A complete two-dimensional transthoracic echocardiogram was performed (2D, M-mode, Doppler and color flow Doppler). * A contrast injection of Definity was performed to improve assessment of LV function. * Contrast was injected into an intravenous site in the left arm. * One vial of Definity ultrasound contrast was diluted in normal saline to a total volume of 10 ml. A total of '2' ml of solution was administered during imaging. * Lot # [id number] of Definity utilized for procedure. * Expiration date NOV 29. * The attending nurse who injected the contrast agent was Rosalia Jackson RN. Left Ventricle * Normal left ventricular size with hyperdynamic systolic function. EF 65-70%. No regional wall motion abnormalities. Mild concentric left ventricular hypertrophy. Type 1 diastolic dysfunction. * Ejection Fraction = >70 %. Right Ventricle * The right ventricle is normal in size and function. * There is moderate right ventricular hypertrophy. Atria * The left atrial size is normal. * Right atrial size is normal. * There is no evidence of atrial septal defect, but resolution does not allow assessment for a patent foramen ovale. Mitral Valve * The mitral valve is grossly normal. * There is no mitral valve stenosis. * Significant mitral regurgitation is absent. Tricuspid Valve * The tricuspid valve is not well visualized, but is grossly normal. * There is no tricuspid stenosis. * There is trace tricuspid regurgitation. Aortic Valve * The aortic valve is trileaflet. * The aortic valve is normal in structure and function. * No hemodynamically significant valvular aortic stenosis. * No aortic regurgitation is present. Pulmonic Valve * The pulmonary valve is inadequately visualized, but the Doppler data is adequate for interpretation. * There is no pulmonic valvular stenosis. * There is no significant pulmonary regurgitation. Great Vessels * The aortic root is normal size. Pericardium/Pleural * Trace pericardial effusion. Great Vessels * Normal inferior vena cava size and collapsability with sniff indicates a normal right atrial pressure of 3 mmHg Left Ventricular Diastolic Function * Grade I diastolic dysfunction, (abnormal relaxation pattern). MMode 2D Measurements and Calculations IVSd 1.3 cm LVIDd 4.0 cm LVIDs 2.6 cm LVPWd 1.2 cm IVS/LVPW 1.1 FS 33.5 % EDV(Teich) 69.2 ml ESV(Teich) 25.7 ml EF(Teich) 62.9 % EDV(cubed) 63.1 ml ESV(cubed) 18.5 ml EF(cubed) 70.6 % LV mass(C)d 175.6 grams LV mass(C)dI 97.2 grams/m\S\2 CO(Teich) 3.3 l/min CI(Teich) 1.8 l/min/m\S\2 SV(Teich) 43.5 ml SI(Teich) 24.1 ml/m\S\2 CO(cubed) 3.3 l/min CI(cubed) 1.9 l/min/m\S\2 SV(cubed) 44.6 ml SI(cubed) 24.7 ml/m\S\2 Ao root diam 2.7 cm Ao root area 5.8 cm\S\2 ACS 1.7 cm LA dimension 2.2 cm LA/Ao 0.81 LVOT diam 2.0 cm LVOT area 3.2 cm\S\2 LVAd ap4 22.7 cm\S\2 LVLd ap4 6.8 cm EDV(MOD-sp4) 61.4 ml EDV(sp4-el) 81.0 ml LVAs ap4 10.4 cm\S\2 LVLs ap4 5.7 cm ESV(MOD-sp4) 16.0 ml ESV(sp4-el) 25.2 ml EF(MOD-sp4) 73.9 % EF(sp4-el) 68.9 % LVAd ap2 15.0 cm\S\2 LVLd ap2 5.9 cm LVAs ap2 6.2 cm\S\2 LVLs ap2 4.2 cm CO(MOD-sp4) 3.4 l/min CI(MOD-sp4) 1.9 l/min/m\S\2 SV(MOD-sp4) 45.4 ml SI(MOD-sp4) 25.1 ml/m\S\2 CO(sp4-el) 4.2 l/min CI(sp4-el) 2.3 l/min/m\S\2 SV(sp4-el) 55.8 ml SI(sp4-el) 30.9 ml/m\S\2 Doppler Measurements and Calculations MV E max ugo 60.1 cm/sec MV A max ugo 89.7 cm/sec MV E/A 0.67 MV dec time 0.37 sec Ao V2 max 106.6 cm/sec Ao max PG 4.5 mmHg Ao max PG (full) 0.47 mmHg JOSE(V,A) 3.0 cm\S\2 JOSE(V,D) 3.0 cm\S\2 LV V1 max PG 4.1 mmHg LV V1 max 100.9 cm/sec PA V2 max 126.2 cm/sec PA max PG 6.4 mmHg PA acc slope 847.0 cm/sec\S\2 PA acc time 0.10 sec RAP systole 3.0 mmHg PA pr(Accel) 36.2 mmHg
--- NOTE | 2016-11-12 16:13 | CARDIOLOGY CONSULTATION ---
DATE OF CONSULTATION: 11/12/2016 TIME: 1517. CONSULTING PHYSICIAN: Dr. Stephanie Hendricks. REASON FOR CONSULTATION: Heart block and syncope. HISTORY OF PRESENT ILLNESS: Ms. Villegas is a very pleasant 71-year-old female with a history significant for hypertension and syncope. She presented to [facility] earlier this morning after a syncopal event. She reports having syncope in March 2014. She was standing at that time and had a syncopal episode with injury. She presented to the hospital and had an unremarkable echocardiogram and no definite etiology for her syncope on objective data. She then in the past year has had 1 or 2 episodes of near syncope when changing positions from a seated to standing position. Today, she had a bowel movement and while still sitting on the commode, her vision became dark. She then had a syncopal episode and found herself lying on the floor. It was unwitnessed as she does live alone. When she awakened, she felt her usual self and contacted her son who brought her to the Emergency Department. While in the Emergency Department, they checked orthostatic vitals. When going from a seated to a standing position, she had a near syncopal episode and fell back into the bed. It was noted that she had third-degree heart block with no ventricular complex for 5+ seconds. She did not lose consciousness however. She then developed nausea and had an episode of emesis. She denies any abdominal cramping, nausea or vomiting prior to the near syncopal episode in the ER. When she regained sinus rhythm with conduction across the AV node, she was completely asymptomatic in that regard other than feeling tired and fatigued. She continues to feel tired, but overall no further near syncope. She denies palpitations today, chest pain, shortness of breath, orthopnea, PND, edema or bleeding such as melena, hematochezia or hematuria. She recently spent 2 weeks in [place] and traveled back and forth via automobile. She does not recall having any tick bite or rash. She did undergo CT scan in the Emergency Department with no evidence of pulmonary emboli. REVIEW OF SYSTEMS: As above and review of systems otherwise negative. PAST MEDICAL HISTORY: 1. Syncope as noted above. 2. COPD. 3. Hypertension. 4. GERD. 5. Osteoporosis. 6. Esophageal stricture. 7. Eustachian tube dysfunction. 8. Hiatal hernia, which causes chest discomfort intermittently with food, for which she sometimes takes nitroglycerin. 9. Macular degeneration and she states that she is deemed legally blind. 10. Vitamin D deficiency. HOME MEDICATIONS: Include Combivent, pantoprazole, ranitidine, meclizine, calcium with vitamin D. INPATIENT MEDICATIONS: Include aspirin 325 mg daily, heparin 5000 units subQ q. 12 hours, ranitidine 150 mg p.o. b.i.d., normal saline at 100 mL per hour. ALLERGIES: ASPIRIN CAUSES GI UPSET. SOCIAL HISTORY: Quit smoking approximately 2 years ago after approximately 30 pack years. No alcohol or drugs. She is a . She lives alone. She has 4 sons. Her one son, Emory, did present at the bedside. FAMILY HISTORY: Brother had CABG near 60 yo. PHYSICAL EXAMINATION: VITAL SIGNS: Temperature 36.7 degrees, heart rate 76 beats per minute, respiration rate 18, blood pressure 132/88 mmHg. Oxygen saturation 99% on 2 liters per nasal cannula. Orthostatics were not abnormal for orthostatic hypotension. Weight 82 kilograms per patient. Official weight is pending. GENERAL: In no acute distress. She is alert and oriented. HEENT: Anicteric sclerae. NECK: No appreciable JVD. No bruits. Normal carotid upstrokes bilaterally. CARDIAC EXAMINATION: PMI was nonpalpable. There was no ventricular heave. Regular, normal S1, S2. No audible murmurs, rubs or gallops. LUNGS: Clear to auscultation bilaterally without wheezes, rales or rhonchi. ABDOMEN: Soft, nontender, nondistended, normoactive bowel sounds, no bruits noted. EXTREMITIES: No cyanosis or edema. No palpable cords. 2+ radial pulses bilaterally. 2+ dorsalis pedis pulses bilaterally. PSYCHIATRIC: Affect appears appropriate. CT scan of the chest, report reviewed. No pulmonary emboli. No acute intrathoracic findings. Head CT report reviewed. No acute intracranial findings. ECG personally reviewed from 10:18 a.m. on 11/12/2016. Sinus rhythm at 68 beats per minute. Right bundle branch block. Telemetry personally reviewed. While in the ICU, so far sinus rhythm with ectopy. No arrhythmia. In the Emergency Department, there was a rhythm strip available for review. A complete heart block for 5+ seconds. Echocardiogram from 03/17/2014, report reviewed. Normal left ventricular systolic function, EF 60-65%. Normal wall motion. No significant valvular abnormalities. LABS on 11/12/16: Na 143; K 4.1; BUN 11; Cr 0.82; Trop 0; TSH 0.564; wbc 9.7; Hbg 13.9; plt 212 ASSESSMENT AND PLAN: 1. Complete heart block: She has transient complete heart block. She also had syncope and had a witnessed near syncopal event in the Emergency Department with transient complete heart block. Heart block is likely the cause of her syncope. There may be a vagal component with her heart block as she did have an episode during a bowel movement. Given the fact though that she has had syncope in the past and continues to have intermittent syncope with heart block, we would recommend pacemaker placement. Electrophysiology consult will be performed when electrophysiology is available on Monday. For the time being, please keep pacer pads in place. If she has recurrent episodes, we will consider transvenous pacemaker as a temporary approach; however, she would like to avoid this unless she has recurrent frequent issues. Agree with Lyme titers, which are pending. TSH was unremarkable. Echocardiogram is pending. 2. Syncope: Likely related to her heart block as witnessed in the ER with a near syncopal event. She was quite symptomatic. Pacemaker recommended as noted above. 3. Hypertension: She has a history of hypertension and has been mostly hypertensive since presentation. Avoid any AV jenny agents. Would not be overly aggressive in treating blood pressure unless she becomes severely hypertensive with symptoms. For now, we would allow some degree of hypertension, so as not to precipitate any hypotension, which will not be tolerated if she has recurrent heart block. 4. Disposition: Cardiology will continue to follow. Electrophysiology has been contacted to make them aware of transient high grade heart block and potential pacemaker placement. Plan of care has also been discussed with Dr. Flroes of the critical care team. Plan of care was also discussed with her son, Emory. Highly complex medical issues. Thank for allowing me to participate in the care of Ms. Villegas. HIRAM
[2016-11-12] MEDS ORDERED: MECLIZINE HCL 25 MG TAB PO PRN (16:30)
[2016-11-12] MEDS ORDERED: NITROGLYCERIN 0.4 MG SL PER TAB CHARGE UT PRN (16:30)
--- NOTE | 2016-11-12 17:13 | History and Physical ---
History & Physical Date & Time of Service: Nov 12, 2016 at 17:03 Chief Complaint: Complete Heart Block Primary Care Physician: Hannah Marshall C.R.N.P History of Present Illness Source: patient, family 71 ears old female with PMH of HTN, GERD and vertigo. she was in her regular state of health until this morning. She was trying to use the bathroom then she passed out for about 15 minutes. She thinks that she hit her right prosthetic knee but no other injuries. She woke up after 15 min and crawled to the the phone and called her son. she was brought to ED by paramedics. found to have a complete heart block with long pause. currently her EKG showed sinus rythm. she does have Hx of vertigo which could be contributed to shorter episodes of heart block. she also had a similar incident last year. that was attributed to her antihypertensive meds which was stopped at that time. currently denies any chest pain or SOB Past Medical/Surgical History Medical Problems: (1) Asthma, Unspecified Status: Chronic (2) Dehydration Status: Resolved (3) Esophageal Reflux Status: Chronic (4) Hypertension Nos Status: Chronic (5) Loss of consciousness Status: Resolved (6) Loss of consciousness Status: Resolved (7) Lumb/Lumbosac Disc Degen Status: Chronic (8) Macular Degeneration Nos Status: Chronic (9) Nasal bone fracture Status: Resolved (10) Nasal bone fracture Status: Resolved (11) Nausea Status: Resolved (12) Osteoporosis Nos Status: Chronic (13) Vertigo Status: Chronic (14) Vertigo Status: Resolved (15) Vertigo Status: Resolved (16) Vertigo Status: Resolved Surgical Problems: (1) Knee joint replacement status Status: Resolved Family History Diabetes mellitus Hypertension father from cancer brother had a heart attack Social History lives by her self independent Smoking Status: Former Smoker Drug Use: none Marital Status: Housing status: lives alone Occupational Status: retired Immunizations History of Influenza Vaccine: Yes Influenza Vaccine Date: Jun 23, 2008 History of Tetanus Vaccine?: Yes History of Pneumococcal: Yes History of Hepatitis B Vaccine: No Multi-Drug Resistant Organisms History of MDRO: No Allergies Coded Allergies: Aspirin (Verified Adverse Reaction, Mild, ABD. PAIN AND VOMITING, 11/12/16) Home Medications Scheduled Calcium/Vitamin D (Os-Lito 500 Plus D), 1 TAB PO BID Cholecalciferol (Vitamin D3), 1 TAB PO DAILY Ipratropium-Albuterol (Combivent Respimat), 1 PUFFS INH QID Ocuvite Preservision (Ocuvite Preservision), 1 TAB PO BID Pantoprazole (Protonix), 40 MG PO DAILY Ranitidine (Zantac), 150 MG PO BID Sennosides-Docusate Sodium (Stool Softener), 3 TAB PO DAILY Scheduled PRN Meclizine Hcl (Meclizine Hcl), 25 MG PO TID PRN for DIZZY Nitroglycerin (Nitrostat), 0.4 MG UT PRN PRN for Heartburn Tramadol (Ultram), 1 TAB PO BID PRN for Pain Review of Systems Constitutional: No chills, No fatigue, No fever, No problem reported, No sweats , No weakness, No weight loss Eyes: No diplopia, No discharge, No eye pain, No problem reported, No redness, No worsening of vision ENT: No dental problems, No hearing loss, No nasal symptoms, No problem reported, No sore throat, No tinnitus, No trouble swallowing, No unusual epistaxis Respiratory: No cough, No dyspnea at rest, No dyspnea on exertion, No hemoptysis, No problem reported, No shortness of breath, No sputum, No wheezing Cardiovascular: + palpitations, No PND, No chest pain, No claudication, No edema, No orthopnea, No problem reported Abdomen: No GI bleeding, No constipation, No diarrhea, No nausea, No pain, No problem reported, No vomiting Musculoskeletal: No calf pain, No joint pain, No muscle pain, No problem reported, No swelling Genitourinary - Female: No dysmenorrhea, No dysuria, No hematuria, No menorrhagia, No metrorrhagia, No , No problem reported, No rash, No urinary frequency, No urinary incontinence, No urinary retention, No urinary urgency, No vaginal bleeding, No vaginal discharge, No vaginal itching, No vulvodynia Neurologic: + vertigo, No balance problems, No memory loss, No numbness/ tingling, No paralysis, No problem reported, No weakness Psychiatric: No anhedonism, No anxiety, No depression symptoms, No insomnia, No problem reported, No substance abuse Endocrine: + fatigue, No excessive thirst, No excessive urination, No problem reported Hematologic / Lymphatic: No abnormal bleeding/bruising, No clotting problems, No night sweats, No problem reported, No swollen lymph nodes Integumentary: No bleeding, No color change, No itch, No new/changing skin lesions, No problem reported, No rash Allergic / Immunologic: No environmental allergies, No food allergies, No frequent infections, No hives, No pet sensitivities, No poor healing, No problem reported, No prolonged convalescence, No seasonal allergies Physical Exam Vital Signs Date Time Temp Pulse Resp B/P Pulse Ox O2 Delivery O2 Flow Rate FiO2 11/12/16 16:00 Nasal Cannula 2.0 11/12/16 13:26 36.7 76 18 99 Nasal Cannula 2.0 11/12/16 12:52 68 18 132/88 99 11/12/16 11:56 73 18 131/89 100 Room Air 11/12/16 10:56 78 18 164/83 100 Nasal Cannula 2.0 11/12/16 10:22 72 16 168/92 100 Nasal Cannula 2.0 11/12/16 10:16 100 Nasal Cannula 2.0 11/12/16 10:11 64 150/78 80 157/87 56 179/103 11/12/16 09:26 36.4 71 18 151/82 96 Room Air General Appearance: no apparent distress Head: normocephalic, atraumatic Eyes: normal inspection, EOMI ENT: normal ENT inspection, hearing grossly normal Neck: supple Respiratory/Chest: chest non-tender, lungs clear, normal breath sounds, no respiratory distress, no accessory muscle use Cardiovascular: regular rate, rhythm, no edema, no gallop, no JVD, no murmur, normal peripheral pulses Abdomen/GI: normal bowel sounds, non tender, soft, no organomegaly, no pulsatile mass, normal rectal exam, occult blood negative Back: normal inspection Extremities/Musculoskelatal: normal inspection, no calf tenderness, no pedal edema, normal range of motion, + pertinent finding (tenderness while passively moving right knee) Neurologic/Psych: engineer systems II-XII nml as tested, no motor/sensory deficits, alert, normal mood/affect, normal reflexes, oriented x 3 Skin: normal color, warm/dry, no rash Diagnostics Laboratory Results Results Past 24 Hours Test 11/12/16 09:40 11/12/16 09:48 11/12/16 13:19 Range/Units White Blood Count 9.70 4.8-10.8 K/uL Red Blood Count 5.17 4.2-5.4 M/uL Hemoglobin 13.9 12.0-16.0 g/dL Hematocrit 44.9 37-47 % Mean Corpuscular Volume 86.8 80-100 fL Mean Corpuscular Hemoglobin 26.9 25-34 pg Mean Corpuscular Hemoglobin Concent 31.0 32-36 g/dl Platelet Count 212 130-400 K/uL Mean Platelet Volume 9.9 7.4-10.4 fL Neutrophils (%) (Auto) 87.1 % Lymphocytes (%) (Auto) 6.3 % Monocytes (%) (Auto) 5.4 % Eosinophils (%) (Auto) 0.7 % Basophils (%) (Auto) 0.3 % Neutrophils # (Auto) 8.45 1.4-6.5 K/uL Lymphocytes # (Auto) 0.61 1.2-3.4 K/uL Monocytes # (Auto) 0.52 0.11-0.59 K/uL Eosinophils # (Auto) 0.07 0-0.5 K/uL Basophils # (Auto) 0.03 0-0.2 K/uL RDW Standard Deviation 50.8 36.4-46.3 fL RDW Coefficient of Variation 15.9 11.5-14.5 % Immature Granulocyte % (Auto) 0.2 % Immature Granulocyte # (Auto) 0.02 0.00-0.02 K/uL Sodium Level 143 136-145 mmol/L Potassium Level 4.1 3.5-5.1 mmol/L Chloride Level 109 98-107 mmol/L Carbon Dioxide Level 28 21-32 mmol/L Anion Gap 6.0 3-11 mmol/L Blood Urea Nitrogen 11 7-18 mg/dl Creatinine 0.82 0.60-1.20 mg/dl Est Creatinine Clear Calc Drug Dose 61.9 ml/min Estimated GFR () 84.0 Estimated GFR (Non- 72.5 BUN/Creatinine Ratio 13.5 10-20 Random Glucose 119 70-99 mg/dl Calcium Level 8.6 8.5-10.1 mg/dl Magnesium Level 2.4 1.8-2.4 mg/dl Total Bilirubin 0.5 0.2-1 mg/dl Direct Bilirubin < 0.1 0-0.2 mg/dl Aspartate Amino Transf (AST/SGOT) 11 15-37 U/L Alanine Aminotransferase (ALT/SGPT) 14 12-78 U/L Alkaline Phosphatase 95 45-117 U/L Total Creatine Kinase 65 26-192 U/L Creatine Kinase MB 1.0 0.5-3.6 ng/ml Creatine Kinase MB Ratio 1.5 0-3.0 Total Protein 7.5 6.4-8.2 gm/dl Albumin 3.7 3.4-5.0 gm/dl Triglycerides Level 221 0-150 mg/dl Cholesterol Level 198 0-200 mg/dl HDL Cholesterol 52 mg/dl LDL Cholesterol, Calculated 102 mg/dl VLDL Cholesterol, Calculated 44 mg/dl Cholesterol/HDL Ratio 3.8 Lipase 115 73-393 U/L Thyroid Stimulating Hormone (TSH) 0.564 0.300-4.500 uIu/ml Bedside D-Dimer > 450 0-450 ng/mlFEU Bedside Troponin I 0.000 0-0.045 ng/ml Prothrombin Time 10.6 9.0-12.0 SECONDS Prothromb Time International Ratio 1.0 0.9-1.1 Activated Partial Thromboplast Time 27.2 21.0-31.0 SECONDS Partial Thromboplastin Ratio 1.0 Lyme Disease IgG Antibody NEG NEG Lyme Disease IgM Antibody NEG NEG Microbiology Results 11/12/16 MRSA DNA Surveillance Screen - Final, Complete Specimen Negative for MRSA by DNA Probe Impression Assessment and Plan Syncope secondary to complete 3rd degree heart block Attach transcutaneous basing pads consult foundry operator serial cardiac enz IVF hydration check potassium , Mag, TSH, lyme disease admit to ICU stat 2D echo HTN currently stable , not on any meds at home chronic vertigo possible secondary to an noticed episodes of heart block Right knee pain xray R/O fracture of dislocation of prosthesis IVF hydration SQ heparin Advanced Directives Existing Living Will: No Existing Power of Spray Booth Operator: No VTE Prophylaxis VTE Risk Assessment Done? Y/N: Yes Risk Level: High
[2016-11-12] MEDS: SODIUM CHLORIDE 0.9% 1000ML 1,000 ML IV SCH ×2 (17:27→21:50)
[2016-11-12] MEDS: IPRATROPIUM BROMIDE/ALBUTEROL respimat INH INH SCH ×2 (17:28→21:53)
[2016-11-12] MEDS ORDERED: RANITIDINE HCL 150 MG TAB PO SCH (21:00)
[2016-11-12] MEDS ORDERED: HEPARIN SOD 5000 UNIT/0.5 ML CARP SQ SCH (21:00)
[2016-11-12] MEDS: RANITIDINE HCL 150 MG TAB PO SCH (21:51)
[2016-11-12] MEDS: CALCIUM 600MG + VIT D 400 IU TAB PO SCH (21:51)
[2016-11-12] MEDS: CEROVITE ADV FORMULA TAB PO SCH (21:52)
[2016-11-12] MEDS: HEPARIN SOD 5000 UNIT/0.5 ML CARP SQ SCH (21:57)
[2016-11-13] VITALS (16 sets, daily range): BP systolic 93–140; BP diastolic 53–82; PULSE 67–87; TEMP 36.7–37; O2SAT 90–97
[2016-11-13] MEDS: ACETAMINOPHEN 325 MG TAB PO PRN ×2 (01:04→21:28)
[2016-11-13] MEDS: HEPARIN SOD 5000 UNIT/0.5 ML CARP SQ SCH ×3 (05:41→21:28)
[2016-11-13 06:15] LABS: BASO % 0.3 %; BASO ABS # 0.02 K/uL (0-0.2); COMPLETE YES; EOS % 1.7 %; LYMPH % 21.1 %; LYMPH ABS # 1.34 K/uL (1.2-3.4); MEAN CORPUSCULAR HEMOGLOBIN 27.1 pg (25-34); MEAN CORPUSCULAR HGB CONC 31.5 g/dl (32-36); MEAN PLATELET VOLUME 9.8 fL (7.4-10.4); MONO % 10.9 %; PLATELET COUNT 200 K/uL (130-400); RED BLOOD COUNT 4.65 M/uL (4.2-5.4); WHITE BLOOD COUNT 6.34 K/uL (4.8-10.8)
[2016-11-13 06:52] LABS: ALT/SGPT 18 U/L (12-78); AST/SGOT 10 U/L (15-37); BLOOD UREA NITROGEN 10 mg/dl (7-18); BUN/CREATININE RATIO 14.3 (10-20); CALCIUM 8.7 mg/dl (8.5-10.1); CARBON DIOXIDE 26 mmol/L (21-32); CHLORIDE 110 mmol/L (98-107); CREATININE 0.72 mg/dl (0.60-1.20); GLUCOSE 89 mg/dl (70-99); MAGNESIUM 2.2 mg/dl (1.8-2.4); POTASSIUM 3.8 mmol/L (3.5-5.1); SODIUM 143 mmol/L (136-145)
[2016-11-13 06:58] LABS: ALKALINE PHOSPHATASE 80 U/L (45-117); PHOSPHORUS 3.5 mg/dl (2.5-4.9)
[2016-11-13] MEDS: IPRATROPIUM BROMIDE/ALBUTEROL respimat INH INH SCH ×4 (08:00→19:36)
[2016-11-13] MEDS: CEROVITE ADV FORMULA TAB PO SCH ×2 (08:01→19:36)
[2016-11-13] MEDS: CALCIUM 600MG + VIT D 400 IU TAB PO SCH ×2 (08:01→19:35)
[2016-11-13] MEDS: DOCUSATE SODIUM/SENNA 50/8.6MG TAB PO SCH (08:01)
[2016-11-13] MEDS: RANITIDINE HCL 150 MG TAB PO SCH ×2 (08:02→19:36)
[2016-11-13] MEDS: CHOLECALCIFEROL 1000 INTER.UNIT TAB PO SCH (08:02)
[2016-11-13] MEDS: SODIUM CHLORIDE 0.9% 1000ML 1,000 ML IV SCH ×2 (08:06→17:53)
[2016-11-13] MEDS ORDERED: ASPIRIN 325 MG ECTAB PO SCH (09:00)
--- NOTE | 2016-11-13 10:43 | CARDIOLOGY PROGRESS NOTE ---
DATE: 11/13/2016 TIME: 9:25 a.m. SUBJECTIVE: She has not had any further episodes of syncope or near syncope. No further transient heart block. She denies chest pain, shortness of breath, palpitations. OBJECTIVE: VITAL SIGNS: Temperature 36.8 degrees, heart rate 67 beats per minute, respiration rate 16, blood pressure 124/70 mmHg, oxygen saturation 92% on room air, weight 83 kg. GENERAL: No acute distress. NECK: No JVD. CARDIAC EXAM: No ventricular heave. Regular, normal S1, S2. No audible murmurs, rubs or gallops. LUNGS: Clear to auscultation bilaterally without wheezes, rales or rhonchi. ABDOMEN: Soft, nontender, nondistended. Normoactive bowel sounds. EXTREMITIES: No cyanosis or edema. PSYCHIATRIC: Affect appears appropriate. MEDICATIONS: Include heparin 5000 units subQ q. 8 hours, ranitidine 150 mg p.o. b.i.d. C. diff is pending. LABORATORY DATA: White blood cell count is 6.34, hemoglobin 12.6, platelets 200. Sodium 143, potassium 3.8, BUN 10, creatinine 0.7, AST 10, ALT 18, albumin 3.3. Stool occult blood is pending. Lyme disease antibodies are negative. Hepatitis C negative. Telemetry personally reviewed. Sinus rhythm, no further arrhythmia since being in the Emergency Department. Echocardiogram performed yesterday demonstrated normal LV size with hyperdynamic systolic function. EF 65-70%. No regional wall motion abnormalities. Mild LVH. Type 1 diastolic dysfunction. Moderate RVH. No significant valvular abnormalities. ASSESSMENT AND PLAN: 1. Syncope: Likely secondary to transient complete heart block as she had a witnessed near syncopal event in the ER with transient third-degree heart block. There appears to be a vasovagal component as an episode happened with a bowel movement at home; however, in the ER, her nausea and vomiting occurred after the event. Recommend consideration for pacemaker placement. Electrophysiology has been made aware of the patient and will be evaluating her tomorrow. She has not had any further high-grade heart block while here and therefore no urgent indication for temporary transvenous pacemaker placement. Would recommend continuing to keep the pacing pads in place for transcutaneous pacing if need be. 2. Transient complete heart block: As above. Plan for EP consult tomorrow for consideration of permanent pacemaker placement for history of recurrent syncope and documented transient complete heart block. 3. Hypertension: History of hypertension; however, her blood pressure has been well controlled over the past afternoon and overnight. No medication is necessary at this time, for her history of hypertension. 4. Disposition: NPO after midnight for possibility of pacemaker placement tomorrow. It is not clear if that will be available tomorrow or Monday, but if electrophysiology agrees with assessment and is able to do so, would like to keep n.p.o. just in case there is availability as to not delay the procedure. The patient's care has been discussed with Dr. Flores of the critical care team.
--- NOTE | 2016-11-13 12:25 | Critical Care Progress Note ---
Critical Care Progress Note Date of Service Nov 13, 2016. ICU Day ICU Day Number: [address] Flores Subjective No events overnight Objective General Appearance: well-appearing, WD/WN Eyes: EOMI, sclerae normal, conjunctivae normal ENT: normal ear exam, normal nasal exam, normal mouth exam Respiratory: breath sounds normal Cardiovasular: regular rate/rhythm, normal S1S2, no murmur Abdomen: non tender, no masses, no guarding Psychiatric: normal affect Assessment & Plan Her problem list includes: - Complete heart block with syncope - Reactive airway disease, otherwise unspecified - Gastro-esophageal reflux disease - Hypertension - Macular degeneration - Osteoporosis - History of vertigo Neurology - GCS 15 - CAM ICU negative - Patient mentating normally. No action needed at this time. Assess daily - History of vertigo: Continue meclizine when necessary - Patient takes tramadol when necessary for pain at home; we can continue this in the ICU setting Cardiac - The patient is currently hemodynamically stable - Cardiology consulted - Echocardiogram ordered - Troponin negative; will continue to trend - Keep monitor at bedside; they need for possible for trans-cutaneous pacing Appreciate recommendations on possible need for transvenous permanent pacemaker Respiratory - Patient has a normal respiratory rate and is currently saturating on room air - Reactive airway disease: Continue Combivent inhaler Gastrointestinal - GERD: Ranitidine 150 by mouth twice a day Patient also gets Protonix 40 daily according to home med list. Does not need dual agents at this time so will not continue this for now - Diet: The patient will be kept nothing by mouth, in case she needs to have a transvenous pacer emergently placed - Bowel regimen: Senna, milk of magnesia Renal/ Genitourinary / Endocrine - No gross molecular abnormalities at this time - Creatinine 0.82 - Monitor daily urine output: Goal > 0.5 mL/KG/hour - No history of diabetes; can follow daily blood sugars - Osteoporosis: Continue calcium and vitamin D Hematology/Infectious Diseases - Afebrile - WBC 9.7 - Hemoglobin 13.9, hematocrit 44.9 - Platelets 212 - No evidence of infection at this time - DVT prophylaxis: Heparin 5000 subcutaneous 3 times a day CODE STATUS - Level I full code Disposition - ICU for cardiac monitoring, and possible need for pacing Plan for possible pacemaker placement [place], nothing by mouth after midnight Consults & Procedures Consultants: Cardiology Procedures: Not applicable Data Medications: Current Inpatient Medications Medications (Trade) Dose Ordered Sig/Barb Route Start Time Stop Time Status Last Admin Dose Admin Ioversol 125 ml 125 ml UD PRN IV 11/12/16 10:30 11/16/16 10:29 Sodium Chloride (Nss 1000ml) 1,000 ml @ 100 mls/hr Q10H IV 11/12/16 12:04 12/12/16 12:03 11/13/16 08:06 100 MLS/HR Acetaminophen (Tylenol Tab) 650 mg Q4H PRN PO 11/12/16 12:15 12/12/16 12:14 11/13/16 01:04 650 MG Al Hydrox/Mg Hydrox/Simethicone (Maalox Max Susp) 15 ml Q4H PRN PO 11/12/16 12:15 12/12/16 12:14 Magnesium Hydroxide (Milk Of Magnesia Susp) 30 ml Q12H PRN PO 11/12/16 12:15 12/12/16 12:14 Ranitidine HCl (zANTac TAB) 150 mg BID PO 11/12/16 21:00 12/12/16 20:59 11/13/16 08:02 150 MG Calcium/Vitamin D (Caltrate Plus Tab) 1 tab BID PO 11/12/16 21:00 12/12/16 20:59 11/13/16 08:01 1 TAB Albuterol/ Ipratropium (Combivent Respimat Inh) 1 puffs QID INH 11/12/16 17:00 12/12/16 16:59 11/13/16 08:00 1 PUFFS Meclizine HCl (Antivert Tab) 25 mg TID PRN PO 11/12/16 16:30 12/12/16 16:29 Nitroglycerin (Nitrostat Tab) 0.4 mg PRN PRN UT 11/12/16 16:30 12/12/16 16:29 Multivitamins/ Minerals (Multivitamin W/ Minerals Tab) 1 tab BID PO 11/12/16 21:00 12/12/16 20:59 11/13/16 08:01 1 TAB Senna/Docusate Sodium (Senokot S Tab) 3 tab DAILY PO 11/13/16 09:00 12/13/16 08:59 11/13/16 08:01 3 TAB Tramadol HCl (Ultram Tab) 50 mg BID PRN PO 11/12/16 16:30 12/12/16 16:29 Cholecalciferol (Vitamin D Tab) 2,000 inter.unit DAILY PO 11/13/16 09:00 12/13/16 08:59 11/13/16 08:02 2,000 INTER.UNIT Heparin Sodium (Porcine) (Heparin Sq 5000 Unit/0.5ml) 5,000 unit Q8 SQ 11/12/16 22:00 12/12/16 21:59 11/13/16 05:41 5,000 UNIT I & O: 24-Hour Column 11/13/16 07:59 Intake Total 1544 ml Balance 1544 ml Vital Signs: Date Time Temp Pulse Resp B/P Pulse Ox O2 Delivery O2 Flow Rate FiO2 11/13/16 11:40 Room Air 11/13/16 11:39 36.8 11/13/16 11:00 71 120/60 93 11/13/16 10:01 73 123/67 95 11/13/16 10:00 74 11/13/16 09:00 87 140/72 90 11/13/16 08:00 36.7 81 122/62 94 11/13/16 08:00 Room Air 11/13/16 07:00 67 116/67 92 11/13/16 06:00 67 16 124/70 92 Room Air 11/13/16 04:00 Nasal Cannula 2.0 11/13/16 04:00 36.8 69 16 113/60 95 Nasal Cannula 2.0 11/13/16 02:00 75 14 118/63 97 Nasal Cannula 2.0 11/13/16 00:01 37.0 78 15 109/57 97 Nasal Cannula 2.0 11/12/16 23:59 Nasal Cannula 2.0 11/12/16 22:00 77 18 130/75 95 Nasal Cannula 2.0 11/12/16 20:00 36.9 90 18 132/86 97 11/12/16 20:00 Nasal Cannula 2.0 11/12/16 19:30 85 16 95 11/12/16 19:00 82 16 111/61 93 11/12/16 18:00 95 135/76 96 11/12/16 17:00 95 115/83 96 11/12/16 16:46 36.7 89 149/81 96 11/12/16 16:00 Nasal Cannula 2.0 11/12/16 16:00 81 96 11/12/16 15:00 75 98 11/12/16 14:00 74 98 11/12/16 13:26 36.7 76 18 99 Nasal Cannula 2.0 11/12/16 12:52 68 18 132/88 99 Laboratory Results: Last 24 Hours Test 11/12/16 13:19 11/12/16 18:00 11/12/16 18:04 11/12/16 21:16 Prothrombin Time 10.6 SECONDS Prothromb Time International Ratio 1.0 Activated Partial Thromboplast Time 27.2 SECONDS Partial Thromboplastin Ratio 1.0 Lyme Disease IgG Antibody NEG Lyme Disease IgM Antibody NEG Creatine Kinase MB 1.3 ng/ml Troponin I < 0.015 ng/ml Creatine Kinase MB Ratio Bedside Glucose 89 mg/dl Test 11/13/16 00:04 11/13/16 00:30 11/13/16 06:04 11/13/16 06:05 Creatine Kinase MB Ratio Creatine Kinase MB 0.8 ng/ml 0.8 ng/ml Troponin I < 0.015 ng/ml < 0.015 ng/ml White Blood Count 6.34 K/uL Red Blood Count 4.65 M/uL Hemoglobin 12.6 g/dL Hematocrit 40.0 % Mean Corpuscular Volume 86.0 fL Mean Corpuscular Hemoglobin 27.1 pg Mean Corpuscular Hemoglobin Concent 31.5 g/dl Platelet Count 200 K/uL Mean Platelet Volume 9.8 fL Neutrophils (%) (Auto) 66.0 % Lymphocytes (%) (Auto) 21.1 % Monocytes (%) (Auto) 10.9 % Eosinophils (%) (Auto) 1.7 % Basophils (%) (Auto) 0.3 % Neutrophils # (Auto) 4.18 K/uL Lymphocytes # (Auto) 1.34 K/uL Monocytes # (Auto) 0.69 K/uL Eosinophils # (Auto) 0.11 K/uL Basophils # (Auto) 0.02 K/uL RDW Standard Deviation 50.5 fL RDW Coefficient of Variation 16.0 % Immature Granulocyte % (Auto) 0.0 % Immature Granulocyte # (Auto) 0.00 K/uL Sodium Level 143 mmol/L Potassium Level 3.8 mmol/L Chloride Level 110 mmol/L Carbon Dioxide Level 26 mmol/L Anion Gap 7.0 mmol/L Blood Urea Nitrogen 10 mg/dl Creatinine 0.72 mg/dl Est Creatinine Clear Calc Drug Dose 71.0 ml/min Estimated GFR () 98.3 Estimated GFR (Non- 84.9 BUN/Creatinine Ratio 14.3 Random Glucose 89 mg/dl Lactic Acid Level 0.7 mmol/L Calcium Level 8.7 mg/dl Phosphorus Level 3.5 mg/dl Magnesium Level 2.2 mg/dl Total Bilirubin 0.5 mg/dl Direct Bilirubin 0.1 mg/dl Aspartate Amino Transf (AST/SGOT) 10 U/L Alanine Aminotransferase (ALT/SGPT) 18 U/L Alkaline Phosphatase 80 U/L Total Protein 6.5 gm/dl Albumin 3.3 gm/dl Hepatitis C Antibody Screen NEG Test 11/13/16 09:15 11/13/16 12:04 11/13/16 12:20 Stool Occult Blood NEGATIVE Creatine Kinase MB Ratio
--- NOTE | 2016-11-13 13:27 | Progress Note ---
Subjective Date of Service: Nov 13, 2016. Subjective Pt evaluation today including: conversation w/ patient, physical exam, chart review, lab review, review of inpatient medication list Problem List Medical Problems: (1) Asthma, Unspecified Status: Chronic (2) Esophageal Reflux Status: Chronic (3) Hypertension Nos Status: Chronic (4) Lumb/Lumbosac Disc Degen Status: Chronic (5) Macular Degeneration Nos Status: Chronic (6) Osteoporosis Nos Status: Chronic (7) Syncope Status: Acute (8) Vertigo Status: Chronic Review of Systems Constitutional: No chills, No fatigue, No fever, No problem reported, No see HPI, No sweats, No weakness, No weight loss Eyes: No diplopia, No discharge, No eye pain, No problem reported, No redness, No see HPI, No worsening of vision ENT: No dental problems, No hearing loss, No nasal symptoms, No problem reported, No see HPI, No sore throat, No tinnitus, No trouble swallowing, No unusual epistaxis Respiratory: No cough, No dyspnea at rest, No dyspnea on exertion, No hemoptysis, No problem reported, No see HPI, No shortness of breath, No sputum, No wheezing Cardiac: No PND, No chest pain, No claudication, No edema, No orthopnea, No palpitations, No problem reported, No see HPI Abdomen: No GI bleeding, No constipation, No diarrhea, No nausea, No pain, No problem reported, No see HPI, No vomiting Musculoskeletal: No calf pain, No joint pain, No muscle pain, No problem reported, No see HPI, No swelling Female : No abnormal vaginal bleeding, No dysuria, No hematuria, No incontinence, No problem reported, No see HPI, No urinary frequency, No vaginal discharge Neurologic: No balance problems, No memory loss, No numbness/tingling, No paralysis, No problem reported, No see HPI, No vertigo, No weakness Psychiatric: No anhedonism, No anxiety, No depression symptoms, No insomnia, No problem reported, No see HPI, No substance abuse Heme: No abnormal bleeding/bruising, No clotting problems, No night sweats, No problem reported, No see HPI, No swollen lymph nodes Endo: No excessive thirst, No excessive urination, No fatigue, No problem reported, No see HPI Skin: No bleeding, No color change, No itch, No new/changing skin lesions, No problem reported, No rash, No see HPI Medications Current Inpatient Medications Medications (Trade) Dose Ordered Sig/Barb Route Start Time Stop Time Status Last Admin Dose Admin Ioversol 125 ml 125 ml UD PRN IV 11/12/16 10:30 11/16/16 10:29 Sodium Chloride (Nss 1000ml) 1,000 ml @ 100 mls/hr Q10H IV 11/12/16 12:04 12/12/16 12:03 11/12/16 21:50 100 MLS/HR Acetaminophen (Tylenol Tab) 650 mg Q4H PRN PO 11/12/16 12:15 12/12/16 12:14 11/13/16 01:04 650 MG Al Hydrox/Mg Hydrox/Simethicone (Maalox Max Susp) 15 ml Q4H PRN PO 11/12/16 12:15 12/12/16 12:14 Magnesium Hydroxide (Milk Of Magnesia Susp) 30 ml Q12H PRN PO 11/12/16 12:15 12/12/16 12:14 Ranitidine HCl (zANTac TAB) 150 mg BID PO 11/12/16 21:00 12/12/16 20:59 11/12/16 21:51 150 MG Calcium/Vitamin D (Caltrate Plus Tab) 1 tab BID PO 11/12/16 21:00 12/12/16 20:59 11/12/16 21:51 1 TAB Albuterol/ Ipratropium (Combivent Respimat Inh) 1 puffs QID INH 11/12/16 17:00 12/12/16 16:59 11/12/16 21:53 1 PUFFS Meclizine HCl (Antivert Tab) 25 mg TID PRN PO 11/12/16 16:30 12/12/16 16:29 Nitroglycerin (Nitrostat Tab) 0.4 mg PRN PRN UT 11/12/16 16:30 12/12/16 16:29 Multivitamins/ Minerals (Multivitamin W/ Minerals Tab) 1 tab BID PO 11/12/16 21:00 12/12/16 20:59 11/12/16 21:52 1 TAB Senna/Docusate Sodium (Senokot S Tab) 3 tab DAILY PO 11/13/16 09:00 12/13/16 08:59 Tramadol HCl (Ultram Tab) 50 mg BID PRN PO 11/12/16 16:30 12/12/16 16:29 Cholecalciferol (Vitamin D Tab) 2,000 inter.unit DAILY PO 11/13/16 09:00 12/13/16 08:59 Heparin Sodium (Porcine) (Heparin Sq 5000 Unit/0.5ml) 5,000 unit Q8 SQ 11/12/16 22:00 12/12/16 21:59 11/13/16 05:41 5,000 UNIT Objective Vital Signs Date Time Temp Pulse Resp B/P Pulse Ox O2 Delivery O2 Flow Rate FiO2 11/13/16 06:00 67 16 124/70 92 Room Air 11/13/16 04:00 Nasal Cannula 2.0 11/13/16 04:00 36.8 69 16 113/60 95 Nasal Cannula 2.0 11/13/16 02:00 75 14 118/63 97 Nasal Cannula 2.0 11/13/16 00:01 37.0 78 15 109/57 97 Nasal Cannula 2.0 11/12/16 23:59 Nasal Cannula 2.0 11/12/16 22:00 77 18 130/75 95 Nasal Cannula 2.0 11/12/16 20:00 36.9 90 18 132/86 97 11/12/16 20:00 Nasal Cannula 2.0 11/12/16 19:30 85 16 95 11/12/16 19:00 82 16 111/61 93 11/12/16 18:00 95 135/76 96 11/12/16 17:00 95 115/83 96 11/12/16 16:46 36.7 89 149/81 96 11/12/16 16:00 Nasal Cannula 2.0 11/12/16 16:00 81 96 11/12/16 15:00 75 98 11/12/16 14:00 74 98 11/12/16 13:26 36.7 76 18 99 Nasal Cannula 2.0 11/12/16 12:52 68 18 132/88 99 11/12/16 11:56 73 18 131/89 100 Room Air 11/12/16 10:56 78 18 164/83 100 Nasal Cannula 2.0 11/12/16 10:22 72 16 168/92 100 Nasal Cannula 2.0 11/12/16 10:16 100 Nasal Cannula 2.0 11/12/16 10:11 64 150/78 80 157/87 56 179/103 11/12/16 09:26 36.4 71 18 151/82 96 Room Air Physical Exam General Appearance: no apparent distress Eyes: normal inspection, EOMI ENT: normal ENT inspection, hearing grossly normal, TMs normal Neck: supple, no adenopathy, thyroid normal Respiratory/Chest: chest non-tender, lungs clear, normal breath sounds, no respiratory distress, no accessory muscle use Cardiovascular: regular rate, rhythm, no edema, no gallop, no JVD, no murmur Abdomen: normal bowel sounds, non tender, soft, no organomegaly, no pulsatile mass Extremities: normal range of motion, non-tender, normal inspection, no pedal edema, no calf tenderness Neurologic/Psychiatric: [facility] hrms consultant II-XII nml as tested, no motor/sensory deficits, alert, normal mood/affect, oriented x 3 Skin: normal color, warm/dry, no rash Laboratory Results Last 24 Hours Test 11/12/16 09:40 11/12/16 09:48 11/12/16 13:19 11/12/16 18:00 White Blood Count 9.70 K/uL Red Blood Count 5.17 M/uL Hemoglobin 13.9 g/dL Hematocrit 44.9 % Mean Corpuscular Volume 86.8 fL Mean Corpuscular Hemoglobin 26.9 pg Mean Corpuscular Hemoglobin Concent 31.0 g/dl Platelet Count 212 K/uL Mean Platelet Volume 9.9 fL Neutrophils (%) (Auto) 87.1 % Lymphocytes (%) (Auto) 6.3 % Monocytes (%) (Auto) 5.4 % Eosinophils (%) (Auto) 0.7 % Basophils (%) (Auto) 0.3 % Neutrophils # (Auto) 8.45 K/uL Lymphocytes # (Auto) 0.61 K/uL Monocytes # (Auto) 0.52 K/uL Eosinophils # (Auto) 0.07 K/uL Basophils # (Auto) 0.03 K/uL RDW Standard Deviation 50.8 fL RDW Coefficient of Variation 15.9 % Immature Granulocyte % (Auto) 0.2 % Immature Granulocyte # (Auto) 0.02 K/uL Sodium Level 143 mmol/L Potassium Level 4.1 mmol/L Chloride Level 109 mmol/L Carbon Dioxide Level 28 mmol/L Anion Gap 6.0 mmol/L Blood Urea Nitrogen 11 mg/dl Creatinine 0.82 mg/dl Est Creatinine Clear Calc Drug Dose 61.9 ml/min Estimated GFR () 84.0 Estimated GFR (Non- 72.5 BUN/Creatinine Ratio 13.5 Random Glucose 119 mg/dl Calcium Level 8.6 mg/dl Magnesium Level 2.4 mg/dl Total Bilirubin 0.5 mg/dl Direct Bilirubin < 0.1 mg/dl Aspartate Amino Transf (AST/SGOT) 11 U/L Alanine Aminotransferase (ALT/SGPT) 14 U/L Alkaline Phosphatase 95 U/L Total Creatine Kinase 65 U/L Creatine Kinase MB 1.0 ng/ml 1.3 ng/ml Creatine Kinase MB Ratio 1.5 Total Protein 7.5 gm/dl Albumin 3.7 gm/dl Triglycerides Level 221 mg/dl Cholesterol Level 198 mg/dl HDL Cholesterol 52 mg/dl LDL Cholesterol, Calculated 102 mg/dl VLDL Cholesterol, Calculated 44 mg/dl Cholesterol/HDL Ratio 3.8 Lipase 115 U/L Thyroid Stimulating Hormone (TSH) 0.564 uIu/ml Bedside D-Dimer > 450 ng/mlFEU Bedside Troponin I 0.000 ng/ml Prothrombin Time 10.6 SECONDS Prothromb Time International Ratio 1.0 Activated Partial Thromboplast Time 27.2 SECONDS Partial Thromboplastin Ratio 1.0 Lyme Disease IgG Antibody NEG Lyme Disease IgM Antibody NEG Troponin I < 0.015 ng/ml Test 11/12/16 18:04 11/12/16 21:16 11/13/16 00:04 11/13/16 00:30 Creatine Kinase MB Ratio Bedside Glucose 89 mg/dl Creatine Kinase MB 0.8 ng/ml Troponin I < 0.015 ng/ml Test 11/13/16 06:04 11/13/16 06:05 Creatine Kinase MB Ratio White Blood Count 6.34 K/uL Red Blood Count 4.65 M/uL Hemoglobin 12.6 g/dL Hematocrit 40.0 % Mean Corpuscular Volume 86.0 fL Mean Corpuscular Hemoglobin 27.1 pg Mean Corpuscular Hemoglobin Concent 31.5 g/dl Platelet Count 200 K/uL Mean Platelet Volume 9.8 fL Neutrophils (%) (Auto) 66.0 % Lymphocytes (%) (Auto) 21.1 % Monocytes (%) (Auto) 10.9 % Eosinophils (%) (Auto) 1.7 % Basophils (%) (Auto) 0.3 % Neutrophils # (Auto) 4.18 K/uL Lymphocytes # (Auto) 1.34 K/uL Monocytes # (Auto) 0.69 K/uL Eosinophils # (Auto) 0.11 K/uL Basophils # (Auto) 0.02 K/uL RDW Standard Deviation 50.5 fL RDW Coefficient of Variation 16.0 % Immature Granulocyte % (Auto) 0.0 % Immature Granulocyte # (Auto) 0.00 K/uL Sodium Level 143 mmol/L Potassium Level 3.8 mmol/L Chloride Level 110 mmol/L Carbon Dioxide Level 26 mmol/L Anion Gap 7.0 mmol/L Blood Urea Nitrogen 10 mg/dl Creatinine 0.72 mg/dl Est Creatinine Clear Calc Drug Dose 71.0 ml/min Estimated GFR () 98.3 Estimated GFR (Non- 84.9 BUN/Creatinine Ratio 14.3 Random Glucose 89 mg/dl Lactic Acid Level 0.7 mmol/L Calcium Level 8.7 mg/dl Phosphorus Level 3.5 mg/dl Magnesium Level 2.2 mg/dl Total Bilirubin 0.5 mg/dl Direct Bilirubin 0.1 mg/dl Aspartate Amino Transf (AST/SGOT) 10 U/L Alanine Aminotransferase (ALT/SGPT) 18 U/L Alkaline Phosphatase 80 U/L Creatine Kinase MB 0.8 ng/ml Troponin I < 0.015 ng/ml Total Protein 6.5 gm/dl Albumin 3.3 gm/dl Assessment and Plan 71 ears old female with PMH of HTN, GERD and vertigo. presented with syncope (also happened about 2 years ago) 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 Syncope secondary to complete 3rd degree heart block currently sinus rythm Attach transcutaneous basing pads consult office associate appreciated, likely will have a pace maker serial cardiac enz are negative so far continue IVF hydration normal potassium , Mag, TSH (0.56), lyme disease titer is negative keep in admit to ICU awaiting 2D echo LDL is 102, HgbA1C is pending HTN currently stable , not on any meds at home chronic vertigo possible secondary to unnoticed episodes of heart block Right knee pain xray ruled out fracture of dislocation of prosthesis SQ heparin Continued [facility] stay due to: other (possible pacemaker placement Monday or ) Discharge planning: home
[2016-11-14] VITALS (20 sets, daily range): BP systolic 111–158; BP diastolic 64–111; PULSE 68–85; TEMP 36.4–37; O2SAT 91–100
[2016-11-14] MEDS: SODIUM CHLORIDE 0.9% 1000ML 1,000 ML IV SCH ×2 (04:04→13:53)
[2016-11-14] MEDS: HEPARIN SOD 5000 UNIT/0.5 ML CARP SQ SCH ×3 (05:28→21:39)
[2016-11-14 05:54] LABS: BASO % 0.5 %; BASO ABS # 0.03 K/uL (0-0.2); COMPLETE YES; EOS % 2.2 %; HEMATOCRIT 40.2 % (37-47); IG% 0.2 %; LYMPH ABS # 1.63 K/uL (1.2-3.4); MEAN CELL VOLUME 85.9 fL (80-100); MEAN CORPUSCULAR HEMOGLOBIN 26.5 pg (25-34); MEAN CORPUSCULAR HGB CONC 30.8 g/dl (32-36); MONO % 9.4 %; NEUT % 61.7 %; PLATELET COUNT 184 K/uL (130-400); RED BLOOD COUNT 4.68 M/uL (4.2-5.4); WHITE BLOOD COUNT 6.26 K/uL (4.8-10.8)
[2016-11-14 06:03] LABS: PROTHROMBIN TIME (PATIENT) 10.4 SECONDS (9.0-12.0)
[2016-11-14 06:19] LABS: ALT/SGPT 13 U/L (12-78); AST/SGOT 9 U/L (15-37); BLOOD UREA NITROGEN 12 mg/dl (7-18); BUN/CREATININE RATIO 15.6 (10-20); CALCIUM 8.5 mg/dl (8.5-10.1); CARBON DIOXIDE 28 mmol/L (21-32); CHLORIDE 109 mmol/L (98-107); CREATININE 0.77 mg/dl (0.60-1.20); GLUCOSE 91 mg/dl (70-99); MAGNESIUM 1.9 mg/dl (1.8-2.4); POTASSIUM 3.9 mmol/L (3.5-5.1); SODIUM 145 mmol/L (136-145)
[2016-11-14 06:21] LABS: ALKALINE PHOSPHATASE 77 U/L (45-117)
[2016-11-14 07:33] LABS: ESTIMATED AVERAGE GLUCOSE 117 mg/dl; HA1C FLAG Normal (Normal)
[2016-11-14] MEDS: RANITIDINE HCL 150 MG TAB PO SCH ×2 (08:26→21:02)
[2016-11-14] MEDS: IPRATROPIUM BROMIDE/ALBUTEROL respimat INH INH SCH ×4 (08:26→21:01)
[2016-11-14] MEDS: CEROVITE ADV FORMULA TAB PO SCH ×2 (09:00→21:02)
--- NOTE | 2016-11-14 10:11 | Procedure Note ---
Pre-Mod Sedation Assessment General Date of Moderate Sedation: Nov 14, 2016. Vital Signs: Vital Signs Past 12 Hours Date Time Temp Pulse Resp B/P Pulse Ox O2 Delivery O2 Flow Rate FiO2 11/14/16 07:30 36.8 85 20 122/75 94 Room Air 11/14/16 07:30 Room Air 11/14/16 07:30 Room Air 11/14/16 06:00 68 20 133/71 93 Room Air 11/14/16 04:00 68 18 111/64 91 Room Air 11/14/16 04:00 95 Room Air 11/14/16 03:52 36.6 74 20 133/71 94 Room Air 11/14/16 02:00 73 18 119/76 92 Room Air 11/13/16 23:59 95 Room Air 11/13/16 23:59 36.8 75 18 93/53 91 Room Air Review Cardiovascular: regular rate, rhythm Lungs: lungs clear Airway Class: II Pre-Sedation Airway Assessment Oral Cavity: Dentures, WNL Able to Visualize Vocal Cords: No Short Thick Neck: No Hx of Sleep Apnea: No Smoking Status: Former Smoker Mallampati Classification: Class II ASA Classification: Class II Procedure Planning Contraindications-for Mod Sed: None Yes Notes The planned sedation has been discussed with the patient and consent obtained. I have identified the patient, determined the appropriateness of sedation and have assessed the patient immediately prior to the procedure. All medicine(s) and interventions are by my order.
[2016-11-14] MEDS ORDERED: CEFAZOLIN SOD 2000 MG in DEXTROSE 5% 50ML IV SCH (11:00)
--- NOTE | 2016-11-14 11:54 | Critical Care Progress Note ---
Critical Care Progress Note Date of Service Nov 14, 2016. ICU Day ICU Day Number: [address] Steele Subjective 71-year-old female with past medical history of hypertension and vertigo here after she experienced a syncopal attack at home after a bowel movement that had lasted for 15 minutes. She was noted to have a transient complete heart block with long pause. Syncopal episode thought to be secondary to transient complete heart block with a vasovagal component. Scheduled for a pacemaker placement today. Denied any events overnight. Denies any chest pain and difficulty breathing but states that every time she needs to use a bedpan or turns over she experiences palpitations and dizziness . Objective General Appearance: well-appearing, WD/WN Eyes: EOMI, sclerae normal, conjunctivae normal ENT: normal ear exam, normal nasal exam, normal mouth exam Respiratory: breath sounds normal Cardiovasular: regular rate/rhythm, normal S1S2, no murmur Abdomen: non tender, no masses, no guarding Psychiatric: normal affect Assessment & Plan 71-year-old female with past medical history of hypertension and vertigo presented after a syncopal episode after having a bowel movement. EKG revealed a transient complete heart block. Currently being monitored in the ICU and scheduled for pacemaker placement later today Neurology - Alert, awake and oriented - History of vertigo: Continue meclizine PRN - Pain control with tramadol as needed(home medication) [facility]: - Transient complete heart block Transvenous permanent pacemaker scheduled for later today Appreciate cardiology input Hypertension: Permissible - No medications for now Respiratory - RAD: Continue Combivent inhaler GI/FEN: - Nothing by mouth since midnight - GERD: Ranitidine 150 by mouth twice a day - Bowel regimen: Senna, milk of magnesia - DVT prophylaxis: Heparin 5000 subcutaneous 3 times a day CODE STATUS - Level I full code Disposition - ICU for cardiac monitoring, pacemaker later today Resident Physician Supervision Note: I was present with Dr. Tracie David during the history and exam. I discussed the case with the resident and agree with the findings and plan as documented in the note. Patient is s/p PPM insertion for intermittent CHB leading to syncopal episodes. Continue post-op care Documented By: Mick Steele MD Consults & Procedures Consultants: Cardiology Procedures: Not applicable Data Medications: Current Inpatient Medications Medications (Trade) Dose Ordered Sig/Barb Route Start Time Stop Time Status Last Admin Dose Admin Ioversol 125 ml 125 ml UD PRN IV 11/12/16 10:30 11/16/16 10:29 Sodium Chloride (Nss 1000ml) 1,000 ml @ 100 mls/hr Q10H IV 11/12/16 12:04 12/12/16 12:03 11/14/16 04:04 100 MLS/HR Acetaminophen (Tylenol Tab) 650 mg Q4H PRN PO 11/12/16 12:15 12/12/16 12:14 11/13/16 21:28 650 MG Al Hydrox/Mg Hydrox/Simethicone (Maalox Max Susp) 15 ml Q4H PRN PO 11/12/16 12:15 12/12/16 12:14 Magnesium Hydroxide (Milk Of Magnesia Susp) 30 ml Q12H PRN PO 11/12/16 12:15 12/12/16 12:14 Ranitidine HCl (zANTac TAB) 150 mg BID PO 11/12/16 21:00 12/12/16 20:59 11/14/16 08:26 150 MG Calcium/Vitamin D (Caltrate Plus Tab) 1 tab BID PO 11/12/16 21:00 12/12/16 20:59 11/13/16 19:35 1 TAB Albuterol/ Ipratropium (Combivent Respimat Inh) 1 puffs QID INH 11/12/16 17:00 12/12/16 16:59 11/14/16 08:26 1 PUFFS Meclizine HCl (Antivert Tab) 25 mg TID PRN PO 11/12/16 16:30 12/12/16 16:29 Nitroglycerin (Nitrostat Tab) 0.4 mg PRN PRN UT 11/12/16 16:30 12/12/16 16:29 Multivitamins/ Minerals (Multivitamin W/ Minerals Tab) 1 tab BID PO 11/12/16 21:00 12/12/16 20:59 11/13/16 19:36 1 TAB Senna/Docusate Sodium (Senokot S Tab) 3 tab DAILY PO 11/13/16 09:00 12/13/16 08:59 11/13/16 08:01 3 TAB Tramadol HCl (Ultram Tab) 50 mg BID PRN PO 11/12/16 16:30 5/1/17 16:29 Cholecalciferol (Vitamin D Tab) 2,000 inter.unit DAILY PO 11/13/16 09:00 12/13/16 08:59 11/13/16 08:02 2,000 INTER.UNIT Heparin Sodium (Porcine) 5000 unit 5,000 unit Q8 SQ 11/12/16 22:00 12/12/16 21:59 11/14/16 05:28 5,000 UNIT Cefazolin Sodium/ Dextrose (Ancef Iv/D5 50ml) 60 ml @ 120 mls/hr TODAY@1100 IV 11/14/16 11:00 11/14/16 23:59 I & O: 24-Hour Column 11/14/16 07:58 Intake Total 3092 ml Output Total 1450 ml Balance 1642 ml Vital Signs: Date Time Temp Pulse Resp B/P Pulse Ox O2 Delivery O2 Flow Rate FiO2 11/14/16 10:26 36.8 70 20 134/79 94 Room Air 11/14/16 10:00 70 134/79 11/14/16 09:00 77 142/80 93 11/14/16 08:17 74 148/81 94 11/14/16 08:00 78 94 11/14/16 08:00 Room Air 11/14/16 07:30 36.8 85 20 122/75 94 Room Air 11/14/16 07:30 Room Air 11/14/16 07:30 Room Air 11/14/16 07:00 76 126/75 95 11/14/16 06:00 68 20 133/71 93 Room Air 11/14/16 04:00 68 18 111/64 91 Room Air 11/14/16 04:00 95 Room Air 11/14/16 03:52 36.6 74 20 133/71 94 Room Air 11/14/16 02:00 73 18 119/76 92 Room Air 11/13/16 23:59 95 Room Air 11/13/16 23:59 36.8 75 18 93/53 91 Room Air 11/13/16 22:00 80 18 126/79 93 Room Air 11/13/16 20:00 36.8 81 18 140/82 94 Room Air 11/13/16 20:00 95 Room Air 11/13/16 15:45 93 Room Air 11/13/16 14:00 80 16 138/73 94 Room Air Laboratory Results: Last 24 Hours Test 11/13/16 12:04 11/13/16 12:20 11/13/16 21:48 11/14/16 05:25 Creatine Kinase MB Ratio Creatine Kinase MB 1.2 ng/ml Troponin I < 0.015 ng/ml Bedside Glucose 115 mg/dl White Blood Count 6.26 K/uL Red Blood Count 4.68 M/uL Hemoglobin 12.4 g/dL Hematocrit 40.2 % Mean Corpuscular Volume 85.9 fL Mean Corpuscular Hemoglobin 26.5 pg Mean Corpuscular Hemoglobin Concent 30.8 g/dl Platelet Count 184 K/uL Mean Platelet Volume 10.0 fL Neutrophils (%) (Auto) 61.7 % Lymphocytes (%) (Auto) 26.0 % Monocytes (%) (Auto) 9.4 % Eosinophils (%) (Auto) 2.2 % Basophils (%) (Auto) 0.5 % Neutrophils # (Auto) 3.86 K/uL Lymphocytes # (Auto) 1.63 K/uL Monocytes # (Auto) 0.59 K/uL Eosinophils # (Auto) 0.14 K/uL Basophils # (Auto) 0.03 K/uL RDW Standard Deviation 50.1 fL RDW Coefficient of Variation 15.8 % Immature Granulocyte % (Auto) 0.2 % Immature Granulocyte # (Auto) 0.01 K/uL Prothrombin Time 10.4 SECONDS Prothromb Time International Ratio 1.0 Sodium Level 145 mmol/L Potassium Level 3.9 mmol/L Chloride Level 109 mmol/L Carbon Dioxide Level 28 mmol/L Anion Gap 8.0 mmol/L Blood Urea Nitrogen 12 mg/dl Creatinine 0.77 mg/dl Est Creatinine Clear Calc Drug Dose 67.8 ml/min Estimated GFR () 90.7 Estimated GFR (Non- 78.2 BUN/Creatinine Ratio 15.6 Random Glucose 91 mg/dl Calcium Level 8.5 mg/dl Phosphorus Level 4.0 mg/dl Magnesium Level 1.9 mg/dl Total Bilirubin 0.3 mg/dl Direct Bilirubin < 0.1 mg/dl Aspartate Amino Transf (AST/SGOT) 9 U/L Alanine Aminotransferase (ALT/SGPT) 13 U/L Alkaline Phosphatase 77 U/L Total Protein 6.3 gm/dl Albumin 3.1 gm/dl Globulin 3.2 gm/dl Albumin/Globulin Ratio 1.0
[2016-11-14] MEDS ORDERED: LIDOCAINE HCL 1% 20 ML VIAL ONE (12:09)
[2016-11-14] MEDS ORDERED: BACITRACIN 50000 UNIT VIAL ONE (12:09)
[2016-11-14] MEDS ORDERED: BUPIVACAINE 0.5 % 5 MG/1 ML MPF 30ML VIAL ONE (12:09)
[2016-11-14] MEDS ORDERED: FENTANYL CITRATE INJ 50 MCG/1 ML 2 ML VIAL ONE (12:26)
[2016-11-14] MEDS ORDERED: MIDAZOLAM HCL 5 MG/ML 1 ML VIAL ONE (12:26)
[2016-11-14] MEDS ORDERED: ACETAMINOPHEN 325 MG TAB PO PRN (13:45)
--- NOTE | 2016-11-14 13:47 | Cardiology Procedure Brief Nt ---
Preliminary Cardiology Note Procedure Date Nov 14, 2016. Pre-Procedure Diagnosis heart block Post-Procedure Diagnosis heart block Procedure(s) Performed implant dual chamber pacemaker Emergency Services Director Pablo Political Advisor(s) p Estimated Blood Loss 5cc Preliminary Findings Succesful placement of dual chamber [employer] pacemaker Recommendations ROutine post-op care. Plan D/C in AM Specimens none
[2016-11-14] MEDS: DOCUSATE SODIUM/SENNA 50/8.6MG TAB PO SCH (14:12)
[2016-11-14] MEDS: CHOLECALCIFEROL 1000 INTER.UNIT TAB PO SCH (14:13)
[2016-11-14] MEDS: CALCIUM 600MG + VIT D 400 IU TAB PO SCH ×2 (14:13→21:01)
[2016-11-14] MEDS ORDERED: ONDANSETRON INJ 2 MG/ML 2 ML VIAL IV STA (15:24)
--- NOTE | 2016-11-14 15:31 | Progress Note ---
Subjective Date of Service: Nov 14, 2016. Subjective Pt evaluation today including: conversation w/ patient, physical exam, lab review, conversation w/ webmethods consultant, review of inpatient medication list Pain: no pain PO Intake: NPO for pacer Voiding: no voiding problems patient doing well this AM, no complaints had some mild right knee pain tolerated dual chamber pacemaker today Problem List Medical Problems: (1) Asthma, Unspecified Status: Chronic (2) Esophageal Reflux Status: Chronic (3) Hypertension Nos Status: Chronic (4) Lumb/Lumbosac Disc Degen Status: Chronic (5) Macular Degeneration Nos Status: Chronic (6) Osteoporosis Nos Status: Chronic (7) Syncope Status: Acute (8) Vertigo Status: Chronic Review of Systems Constitutional: + fatigue, + weakness Musculoskeletal: + joint pain (right knee, from fall with syncope) All Other Systems: Reviewed and Negative Medications Current Inpatient Medications Medications (Trade) Dose Ordered Sig/Barb Route Start Time Stop Time Status Last Admin Dose Admin Ioversol 125 ml 125 ml UD PRN IV 11/12/16 10:30 11/16/16 10:29 Sodium Chloride (Nss 1000ml) 1,000 ml @ 100 mls/hr Q10H IV 11/12/16 12:04 12/12/16 12:03 11/14/16 13:53 100 MLS/HR Al Hydrox/Mg Hydrox/Simethicone (Maalox Max Susp) 15 ml Q4H PRN PO 11/12/16 12:15 12/12/16 12:14 Magnesium Hydroxide (Milk Of Magnesia Susp) 30 ml Q12H PRN PO 11/12/16 12:15 12/12/16 12:14 Ranitidine HCl (zANTac TAB) 150 mg BID PO 11/12/16 21:00 12/12/16 20:59 11/14/16 08:26 150 MG Calcium/Vitamin D (Caltrate Plus Tab) 1 tab BID PO 11/12/16 21:00 12/12/16 20:59 11/14/16 14:13 1 TAB Albuterol/ Ipratropium (Combivent Respimat Inh) 1 puffs QID INH 11/12/16 17:00 12/12/16 16:59 11/14/16 12:03 1 PUFFS Meclizine HCl (Antivert Tab) 25 mg TID PRN PO 11/12/16 16:30 12/12/16 16:29 Nitroglycerin (Nitrostat Tab) 0.4 mg PRN PRN UT 11/12/16 16:30 12/12/16 16:29 Multivitamins/ Minerals (Multivitamin W/ Minerals Tab) 1 tab BID PO 11/12/16 21:00 12/12/16 20:59 11/13/16 19:36 1 TAB Senna/Docusate Sodium (Senokot S Tab) 3 tab DAILY PO 11/13/16 09:00 12/13/16 08:59 11/14/16 14:12 3 TAB Tramadol HCl (Ultram Tab) 50 mg BID PRN PO 11/12/16 16:30 12/12/16 16:29 Cholecalciferol (Vitamin D Tab) 2,000 inter.unit DAILY PO 11/13/16 09:00 12/13/16 08:59 11/14/16 14:13 2,000 INTER.UNIT Heparin Sodium (Porcine) 5000 unit 5,000 unit Q8 SQ 11/12/16 22:00 12/12/16 21:59 11/14/16 05:28 5,000 UNIT Cefazolin Sodium 2000 mg/Dextrose 60 ml @ 120 mls/hr TODAY@1100 IV 11/14/16 11:00 11/14/16 23:59 11/14/16 12:02 120 MLS/HR Cefazolin Sodium/ Dextrose (Ancef Iv/D5 50ml) 60 ml @ 100 mls/hr Q8H IV 11/14/16 22:00 11/15/16 21:59 Acetaminophen (Tylenol Tab) 650 mg Q4H PRN PO 11/14/16 13:45 12/14/16 13:44 Oxycodone HCl (Roxicodone Immediate Rel Tab) 5 mg Q4 PRN PO 11/14/16 13:45 11/28/16 13:44 Ondansetron HCl (Zofran Inj) 4 mg NOW STAT IV 11/14/16 15:24 11/14/16 15:25 UNV Objective Vital Signs Date Time Temp Pulse Resp B/P Pulse Ox O2 Delivery O2 Flow Rate FiO2 11/14/16 14:32 82 158/67 95 11/14/16 14:30 81 93 11/14/16 14:16 85 152/95 96 11/14/16 14:15 78 95 11/14/16 14:00 76 98 11/14/16 13:45 Room Air 11/14/16 13:45 75 140/89 100 11/14/16 13:45 36.4 82 20 148/88 96 Room Air 11/14/16 13:38 77 18 151/97 97 Room Air 11/14/16 13:23 83 18 121/77 98 Nasal Cannula 4 11/14/16 11:30 36.9 82 20 132/86 95 Room Air 11/14/16 11:30 Room Air 11/14/16 10:26 36.8 70 20 134/79 94 Room Air 11/14/16 10:00 70 134/79 11/14/16 09:00 77 142/80 93 11/14/16 08:17 74 148/81 94 11/14/16 08:00 78 94 11/14/16 08:00 Room Air 11/14/16 07:30 36.8 85 20 122/75 94 Room Air 11/14/16 07:30 Room Air 11/14/16 07:30 Room Air 11/14/16 07:00 76 126/75 95 11/14/16 06:00 68 20 133/71 93 Room Air 11/14/16 04:00 68 18 111/64 91 Room Air 11/14/16 04:00 95 Room Air 11/14/16 03:52 36.6 74 20 133/71 94 Room Air 11/14/16 02:00 73 18 119/76 92 Room Air 11/13/16 23:59 95 Room Air 11/13/16 23:59 36.8 75 18 93/53 91 Room Air 11/13/16 22:00 80 18 126/79 93 Room Air 11/13/16 20:00 36.8 81 18 140/82 94 Room Air 11/13/16 20:00 95 Room Air 11/13/16 15:45 93 Room Air Physical Exam General Appearance: WD/WN, no apparent distress Eyes: normal inspection, EOMI, sclerae normal ENT: normal ENT inspection, hearing grossly normal, pharynx normal Neck: supple, no adenopathy, no JVD, trachea midline Respiratory/Chest: chest non-tender, lungs clear, normal breath sounds, no respiratory distress, no accessory muscle use Cardiovascular: regular rate, rhythm, no edema, no gallop, no JVD, no murmur Abdomen: normal bowel sounds, non tender, soft, no organomegaly Extremities: normal range of motion, non-tender, normal inspection, no pedal edema, no calf tenderness, pelvis stable 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, no motor/sensory deficits, alert, normal mood/affect, oriented x 3 Skin: normal color, warm/dry, no rash Lymphatic: no adenopathy Laboratory Results Last 24 Hours Test 11/13/16 21:48 11/14/16 05:25 Bedside Glucose 115 mg/dl White Blood Count 6.26 K/uL Red Blood Count 4.68 M/uL Hemoglobin 12.4 g/dL Hematocrit 40.2 % Mean Corpuscular Volume 85.9 fL Mean Corpuscular Hemoglobin 26.5 pg Mean Corpuscular Hemoglobin Concent 30.8 g/dl Platelet Count 184 K/uL Mean Platelet Volume 10.0 fL Neutrophils (%) (Auto) 61.7 % Lymphocytes (%) (Auto) 26.0 % Monocytes (%) (Auto) 9.4 % Eosinophils (%) (Auto) 2.2 % Basophils (%) (Auto) 0.5 % Neutrophils # (Auto) 3.86 K/uL Lymphocytes # (Auto) 1.63 K/uL Monocytes # (Auto) 0.59 K/uL Eosinophils # (Auto) 0.14 K/uL Basophils # (Auto) 0.03 K/uL RDW Standard Deviation 50.1 fL RDW Coefficient of Variation 15.8 % Immature Granulocyte % (Auto) 0.2 % Immature Granulocyte # (Auto) 0.01 K/uL Prothrombin Time 10.4 SECONDS Prothromb Time International Ratio 1.0 Sodium Level 145 mmol/L Potassium Level 3.9 mmol/L Chloride Level 109 mmol/L Carbon Dioxide Level 28 mmol/L Anion Gap 8.0 mmol/L Blood Urea Nitrogen 12 mg/dl Creatinine 0.77 mg/dl Est Creatinine Clear Calc Drug Dose 67.8 ml/min Estimated GFR () 90.7 Estimated GFR (Non- 78.2 BUN/Creatinine Ratio 15.6 Random Glucose 91 mg/dl Calcium Level 8.5 mg/dl Phosphorus Level 4.0 mg/dl Magnesium Level 1.9 mg/dl Total Bilirubin 0.3 mg/dl Direct Bilirubin < 0.1 mg/dl Aspartate Amino Transf (AST/SGOT) 9 U/L Alanine Aminotransferase (ALT/SGPT) 13 U/L Alkaline Phosphatase 77 U/L Total Protein 6.3 gm/dl Albumin 3.1 gm/dl Globulin 3.2 gm/dl Albumin/Globulin Ratio 1.0 Assessment and Plan 71 yo female with PMH of HTN, GERD and vertigo. presented with syncope (also happened about 2 years ago) 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 - Syncope: suspected to be due to 3rd degree heart block seen transiently on telemetry returned to sinus rhythm, did not require transcutaneous pacing dual chamber pacemaker implanted on 11/14, [facility] well [facility], electrolytes and Lyme titer negative, cardiac enzymes normal echo: EF 65-70%, grade I diastolic dysfunction - Hypertension: BP stable, no medications currently - Right knee pain: from fall, no swelling or bruising, no periprosthetic fractures seen on x-ray plan: transfer to [facility], likely d/c home tomorrow Continued [facility] stay due to: other Discharge planning: home
[2016-11-14] MEDS: TRAMADOL HCL 50 MG TAB PO PRN (15:46)
--- NOTE | 2016-11-14 17:28 | Procedure Note ---
Post-Moderate Sedation Plan General Date of Moderate Sedation Nov 14, 2016. Vital Signs: Vital Signs Past 12 Hours Date Time Temp Pulse Resp B/P Pulse Ox O2 Delivery O2 Flow Rate FiO2 11/14/16 14:32 82 158/67 95 11/14/16 14:30 81 93 11/14/16 14:16 85 152/95 96 11/14/16 14:15 78 95 11/14/16 14:00 76 98 11/14/16 13:45 Room Air 11/14/16 13:45 75 140/89 100 11/14/16 13:45 36.4 82 20 148/88 96 Room Air 11/14/16 13:38 77 18 151/97 97 Room Air 11/14/16 13:23 83 18 121/77 98 Nasal Cannula 4 11/14/16 11:30 36.9 82 20 132/86 95 Room Air 11/14/16 11:30 Room Air 11/14/16 10:26 36.8 70 20 134/79 94 Room Air 11/14/16 10:00 70 134/79 11/14/16 09:00 77 142/80 93 11/14/16 08:17 74 148/81 94 11/14/16 08:00 78 94 11/14/16 08:00 Room Air 11/14/16 07:30 36.8 85 20 122/75 94 Room Air 11/14/16 07:30 Room Air 11/14/16 07:30 Room Air 11/14/16 07:00 76 126/75 95 11/14/16 06:00 68 20 133/71 93 Room Air Review - Discharge Plan Post Moderate Sedation Plan: On clinical assessment, the patient appears to have tolerated the conscious sedation without complications. Patient is recovering as anticipated. Patient will continue to be monitored by nursing and may be discharged when conscious sedation discharge criteria are met.
--- NOTE | 2016-11-14 19:31 | CARDIOLOGY CONSULTATION ---
DATE OF CONSULTATION: 11/14/2016 ELECTROPHYSIOLOGY CONSULTATION REFERRING PHYSICIAN: Dr. Ganga Mendoza. CHIEF COMPLAINT: Complete heart block and syncope. HISTORY OF PRESENT ILLNESS: Mrs. Nadiya Villegas is a 71-year-old woman without a known history of heart disease who has had episodes of syncope over approximately 2 years. During this admission, the patient experienced an episode of syncope in the bathroom. It appears that she was having a bowel movement and may have finished her bowel movement. When she attempted to leave, she did experience symptoms of presyncope such as dizziness and some visual changes prior to passing out. The duration of her loss of consciousness is unclear as no one was home at that time. Upon waking up, she generally felt well, although she did suffer a minor injury to her right hip. 911 was summoned and she was brought to [facility] for an additional evaluation. While in the Emergency Room, the patient was undergoing an evaluation when she experienced similar symptoms and was witnessed to have an episode of complete heart block associated with brief syncope. The patient has been on telemetry monitoring since that time without any additional rhythm problems or recurrent syncope. Approximately 2 years ago, the patient developed similar symptoms. She was in the bathroom and had a syncopal episode. En route to the hospital, the patient also had an episode of syncope in the car. Evaluation at that time was unrevealing for an etiology. 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 OUTPATIENT MEDICATIONS: Include Combivent, pantoprazole, ranitidine, meclizine and calcium supplementation. MEDICAL ALLERGIES: ASPIRIN. SOCIAL HISTORY: The patient has a remote history of tobacco abuse, totaling approximately 30 pack years, currently a nonsmoker. She denies significant alcohol abuse. FAMILY HISTORY: Insignificant, given her age; however, not positive for premature coronary artery disease. REVIEW OF SYSTEMS: Complete 10-system review of systems was performed and the pertinent positives are noted in the history of present illness and the remainder of the review of systems was negative. She has not had any recent constitutional symptoms. She has some difficulty with ambulation due to her visual disturbance. She has had some loose stools recently, but no other abdominal complaints. PHYSICAL EXAMINATION: GENERAL: She was alert and oriented, mood and affect appeared normal. She answered all questions appropriately. VITAL SIGNS: Include blood pressure 148/88 with pulse of 75. HEENT: Her sclerae are anicteric. Extraocular movements appear to be intact. Palpation of submandibular region did not reveal any significant lymphadenopathy. The carotids are palpable bilaterally. There are no bruits on auscultation. I did not appreciate jugular venous distention. Thyroid is not enlarged. LUNGS: Auscultation of both lung chavez reveal them to be clear. There were no rales, wheezes or rhonchi. She had good respiratory effort without use of accessory muscles. CARDIAC EXAMINATION: Revealed her to be in a regular rhythm. I did not appreciate any murmurs on examination. S1 and S2 appeared to be normal. The PMI was not markedly displaced on palpation. ABDOMEN: Soft and nontender. EXTREMITIES: Evaluation of both wrists revealed radial pulses that were equal in intensity. There is no evidence of cyanosis or clubbing. Evaluation of the lower extremities did not reveal any significant peripheral edema. SKIN: I do not appreciate any rashes on examination today. LABORATORY STUDIES: Laboratory studies obtained at [facility] included a white cell count of 6.2, hemoglobin of 12.4, platelet count of 184. Sodium is 145, potassium is 3.4, BUN was 12, creatinine was 0.7. 12-lead EKGs were obtained, which did not reveal any notable conduction abnormality. A telemetry strip from the Emergency Room was available for review and this did reveal complete heart block with associated periods of ventricular asystole. A PE protocol had been obtained in the Emergency Room, which did not reveal any evidence of acute thrombus. Chest x-ray was also obtained, which did not reveal any notable abnormality. Echocardiogram was also obtained at the time of admission, which revealed the patient to have preserved left ventricular systolic function without evidence of significant valvular heart disease. ASSESSMENT AND PLAN: Complete heart block: This was transient in nature but certainly associated with the patient's symptoms. It will be plausible to believe that other episodes of syncope were associated with the same problem. She does have baseline right bundle-branch block, but otherwise no significant conduction disease. The etiology of her conduction problems is likely age related. It is unclear whether this was entirely vagally mediated although unlikely, given the strips recorded. At this point, I think implantation of a pacemaker would be indicated based on the correlation between symptoms and conduction disease. I did discuss the risks, benefits, and alternatives with the patient and she is likely to proceed later today.
[2016-11-14] MEDS: OXYCODONE HCL IR 5 MG TAB (IMMEDIATE RELEASE) PO PRN (21:01)
[2016-11-14] MEDS: CEFAZOLIN IV 2,000 MG in DEXTROSE 5% 50ML 50 ML IV SCH (21:38)
[2016-11-15] VITALS (80 sets, daily range): BP systolic 56–158; BP diastolic 30–120; PULSE 37–136; TEMP 36–37.1; O2SAT 87–98; Ht 154.9 cm; Wt 82.8 kg
[2016-11-15] MEDS: OXYCODONE HCL IR 5 MG TAB (IMMEDIATE RELEASE) PO PRN ×2 (03:29→20:34)
[2016-11-15 05:43] LABS: HEMATOCRIT 39.9 % (37-47); MEAN CELL VOLUME 85.3 fL (80-100); MEAN CORPUSCULAR HEMOGLOBIN 27.1 pg (25-34); MEAN CORPUSCULAR HGB CONC 31.8 g/dl (32-36); MEAN PLATELET VOLUME 9.9 fL (7.4-10.4); PLATELET COUNT 194 K/uL (130-400); RED BLOOD COUNT 4.68 M/uL (4.2-5.4); WHITE BLOOD COUNT 8.67 K/uL (4.8-10.8)
[2016-11-15] MEDS ORDERED: CEFAZOLIN SOD 1000MG/55 ML D5W IV SCH (06:00)
[2016-11-15] MEDS ORDERED: CEFAZOLIN SOD 2000 MG in DEXTROSE 5% 50ML IV SCH (06:00)
[2016-11-15] MEDS: CEFAZOLIN IV 2,000 MG in DEXTROSE 5% 50ML 50 ML IV SCH ×2 (06:28→14:00)
[2016-11-15] MEDS: HEPARIN SOD 5000 UNIT/0.5 ML CARP SQ SCH ×2 (06:29→14:00)
[2016-11-15 06:50] LABS: ALKALINE PHOSPHATASE 82 U/L (45-117); ALT/SGPT 13 U/L (12-78); AST/SGOT 11 U/L (15-37); BLOOD UREA NITROGEN 10 mg/dl (7-18); BUN/CREATININE RATIO 12.5 (10-20); CALCIUM 10.6 mg/dl (8.5-10.1); CARBON DIOXIDE 31 mmol/L (21-32); CHLORIDE 104 mmol/L (98-107); CREATININE 0.81 mg/dl (0.60-1.20); GLUCOSE 103 mg/dl (70-99); POTASSIUM 4.1 mmol/L (3.5-5.1); SODIUM 140 mmol/L (136-145)
--- NOTE | 2016-11-15 07:08 | DIAGNOSTIC IMAGING REPORT ---
CHEST 2 VIEWS ROUTINE CLINICAL HISTORY: Pacemaker placement COMPARISON STUDY: No previous studies for comparison. FINDINGS: The heart is normal in size. There is a left subclavian dual-chamber central venous pacemaker. Electrodes position is unremarkable. There is no pneumothorax. There are linear bibasilar opacities, likely atelectatic. There is no failure. There is no lobar consolidation. There is no significant pleural fluid.[ IMPRESSION: No evidence of pneumothorax status post left subclavian dual-chamber central venous pacemaker placement. Electronically signed by: Danny Veras M.D. 11/15/2016 7:06 AM Dictated Date/Time: 11/15/2016 7:04 AM
--- NOTE | 2016-11-15 07:09 | OPERATIVE REPORT ---
DATE OF OPERATION: 11/14/2016 PACEMAKER IMPLANTATION REPORT PROCEDURE PERFORMED: Implantation of dual chamber permanent pacemaker. 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 Ron Shah. INDICATION: Mrs. Nadiya Villegas is a 71-year-old woman who presented with an episode of syncope with complete heart block. Based on the documented arrhythmia and her symptoms, she was felt to be a good candidate for pacemaker implantation due to symptomatic nonreversible AV node dysfunction. Dual chamber device was selected as the patient is currently in sinus rhythm and wished to maintain AV synchrony. PROCEDURE IN DETAIL: The patient was informed of risks, benefits and alternatives to the intended procedure. She understood such and wished to proceed. She was taken to the electrophysiology suite in a fasting state. A preoperative antibiotic had been administered. The patient was monitored electrocardiographically throughout today's procedure and conscious sedation was administered per protocol. The left pectoral area was prepped and draped in usual sterile fashion. This area was then anesthetized using subcutaneous administration of lidocaine solution. An incision was made, dissection carried down the prepectoralis fascia using sharp dissection. Electrocautery was also employed for dissection as well as for hemostasis. A device pocket was fashioned in the tissues above the pectoralis muscle. Subsequent to this, left axillary vein was accessed twice using modified Seldinger technique. Sheaths were placed over the guidewires at this site and used for the passage of the pacing leads to their respective chambers under fluoroscopic guidance, this included right atrial and right ventricular leads. Adequate sensing and threshold parameters were obtained prior to active fixation of these leads to the endocardial surface. The proximal portion of the leads was then sutured to the prepectoral fascia using nonabsorbable suture. Device pocket was irrigated with an antibiotic solution. The leads were then attached to device, device and leads were then placed in the pocket, and the pocket was closed in 3 layers of absorbable suture. Steri-Strips and sterile dressing were applied. The device was tested noninvasively prior to concluding the procedure. The patient tolerated the procedure well. There were no immediate complications. EQUIPMENT USED: New pulse generator, medical technologist clinical [employer]tronic, model #A2DR01, serial #[id number]. Right atrial lead, medical technologist clinical [employer], model #4076, serial [id number]. Right ventricular lead medical technologist clinical [employer]onic, model #4076, serial [id number]. MEASURED DATA: 1. Right atrial lead, P-waves measured 4.5 millivolts, pacing threshold is 1 volts at 0.4 milliseconds with a pacing impedance of 889 ohms. 2. Left ventricular lead, R-waves measured 5.6 millivolts, pacing threshold is 3 volts at 0.4 milliseconds with a pacing impedance of 855 ohms. IMPRESSION: 1. Successful implantation of dual chamber permanent pacemaker. 2. High threshold on the right ventricular lead. PLAN: The patient will be returned to the colon for period monitoring and additional dose of antibiotics in the morning and repeat interrogation will be performed as well as a chest x-ray. If parameters adequate, she will be considered for discharge at that time. I attest to the content of the Intraoperative Record and any orders documented therein. Any exceptio ns are noted below.
[2016-11-15] MEDS: RANITIDINE HCL 150 MG TAB PO SCH ×2 (09:00→20:34)
[2016-11-15] MEDS: CEROVITE ADV FORMULA TAB PO SCH ×2 (09:00→20:35)
[2016-11-15] MEDS: CHOLECALCIFEROL 1000 INTER.UNIT TAB PO SCH (09:00)
[2016-11-15] MEDS: IPRATROPIUM BROMIDE/ALBUTEROL respimat INH INH SCH ×4 (09:00→20:34)
[2016-11-15] MEDS: DOCUSATE SODIUM/SENNA 50/8.6MG TAB PO SCH ×2 (09:00→20:35)
[2016-11-15] MEDS ORDERED: DOPamine 400MG / 250ML D5W ONE (09:01)
[2016-11-15] MEDS ORDERED: FENTANYL CITRATE INJ 50 MCG/1 ML 2 ML VIAL ONE ×2 (09:09→13:46)
[2016-11-15] MEDS ORDERED: NOREPINEPHRINE BITARTRATE 1 MG/ML 4 ML VIAL ONE (09:09)
[2016-11-15] MEDS ORDERED: MIDAZOLAM HCL 1 MG/ML 2ML VIAL ONE (09:09)
[2016-11-15] MEDS ORDERED: LIDOCAINE HCL 1% 20 ML VIAL ONE ×5 (09:15→13:32)
[2016-11-15] MEDS ORDERED: NURSING VERBAL MED ORDER ONE ×2 (10:45→15:00)
[2016-11-15] MEDS: ONDANSETRON INJ 2 MG/ML 2 ML VIAL IV PRN ×2 (11:07→23:19)
[2016-11-15] MEDS ORDERED: OPTIRAY 320 IV PRN (11:15)
[2016-11-15 11:27] LABS: HEMATOCRIT 35.8 % (37-47); MEAN CELL VOLUME 88.2 fL (80-100); MEAN CORPUSCULAR HEMOGLOBIN 27.6 pg (25-34); MEAN CORPUSCULAR HGB CONC 31.3 g/dl (32-36); MEAN PLATELET VOLUME 10.3 fL (7.4-10.4); PLATELET COUNT 255 K/uL (130-400); RED BLOOD COUNT 4.06 M/uL (4.2-5.4); WHITE BLOOD COUNT 27.54 K/uL (4.8-10.8)
[2016-11-15 11:32] LABS: INR 1.1 (0.9-1.1); PROTHROMBIN TIME (PATIENT) 11.3 SECONDS (9.0-12.0)
[2016-11-15 11:33] LABS: BASO % 0.2 %; BASO ABS # 0.06 K/uL (0-0.2); COMPLETE YES; EOS % 0.2 %; IG% 0.5 %; LYMPH % 5.3 %; LYMPH ABS # 1.45 K/uL (1.2-3.4); MONO % 5.4 %; NEUT % 88.4 %
[2016-11-15 11:40] LABS: BUN/CREATININE RATIO 9.3 (10-20); CALCIUM 9.1 mg/dl (8.5-10.1); CREATININE 1.3 mg/dl (0.60-1.20); POTASSIUM 4.1 mmol/L (3.5-5.1)
[2016-11-15 11:53] LABS: BETA-HYDROXYBUTYRATE 9.2 mg/dL (0.2-2.81)
--- NOTE | 2016-11-15 12:04 | DIAGNOSTIC IMAGING REPORT ---
CT ABD/PELVIS IV CONTRAST ONLY CLINICAL HISTORY: Complete heart block. Patient status post pericardiocentesis. Evaluate for abdominal hemorrhage. COMPARISON STUDY: 09/17/2016 TECHNIQUE: Following the IV administration of 94 mL of Optiray-320, CT scan of the abdomen and pelvis was performed from the lung bases to the proximal femurs. Images are reviewed in the axial, sagittal, and coronal planes. IV contrast was administered without complication. CT DOSE: 1123.38 mGy.cm FINDINGS: Lower chest: Images of the lower chest demonstrate a moderate to large left hemothorax. There is a dual-chamber central venous pacemaker. The right ventricular lead has perforated the right ventricular wall extends into the pericardial fat. There is a small pneumomediastinum. A pericardial drain is visualized. There are right basilar atelectatic changes. Liver: The contrast-enhanced liver is normal in size, contour, and attenuation. There is no intrahepatic biliary ductal dilatation. The hepatic veins and portal veins are patent. Gallbladder: Surgically absent Spleen: There are wedge-shaped splenic hypodensities, consistent with splenic infarcts Pancreas: Unremarkable. Adrenal glands: Unremarkable. Kidneys: No solid renal masses are visualized. There is no hydronephrosis. Bowel: There are no transition zones indicate bowel obstruction. There is a left inguinal hernia which contains a loop of small bowel this is not currently resulting in obstructive changes. There is no acute diverticulitis. There is no acute appendicitis. There are postsurgical changes of a ventral hernia mesh repair. There is colonic diverticulosis. Peritoneum: There is no intraperitoneal free air or abdominal ascites. Vasculature: The abdominal aorta is normal in course and caliber. There are right femoral arterial and venous catheters. There is a small amount of air within the right femoral vein, likely iatrogenic. There is a small hematoma surrounding the right femoral artery and vein. There are air bubbles within the hematoma, likely iatrogenic. Adenopathy: None. Pelvic viscera: The uterus is surgically absent. Skeletal structures: No destructive osseous lesions are seen. IMPRESSION: 1. The ventricular lead of the patient's left dual-chamber central venous pacemaker has perforated the right particular apex and terminates within the anterior pericardial fat 2. A pericardial catheter is visualized. There is no significant pericardial effusion 3. Small pneumomediastinum 4. Moderate left-sided hemothorax 5. Splenic infarcts 6. Bowel containing left inguinal hernia. No current evidence of obstruction 7. Right femoral arterial and venous catheters. There is a small surrounding hematoma. Air within the presumed hematoma is likely iatrogenic. 8. Normal appendix. Diverticulosis. No evidence of acute diverticulitis. Electronically signed by: Danny Veras M.D. 11/15/2016 12:02 PM Dictated Date/Time: 11/15/2016 11:46 AM
[2016-11-15 12:07] LABS: ISTAT ARTERIAL BLOOD GAS HCO3 18 meq/L (19-24); ISTAT ARTERIAL BLOOD GAS PCO2 40 mmHg (35-46); ISTAT ARTERIAL BLOOD GAS PO2 62 mmHg (80-95); ISTAT ARTERIAL BLOOD GAS pH 7.26 (7.35-7.45); ISTAT CARBON DIOXIDE 19 mEq/l (24-31)
[2016-11-15 12:07] LABS: ISTAT ARTERIAL BLOOD GAS HCO3 21 meq/L (19-24); ISTAT ARTERIAL BLOOD GAS PCO2 49 mmHg (35-46); ISTAT ARTERIAL BLOOD GAS PO2 < 32 mmHg (80-95); ISTAT ARTERIAL BLOOD GAS pH 7.23 (7.35-7.45); ISTAT CARBON DIOXIDE 22 mEq/l (24-31)
--- NOTE | 2016-11-15 14:32 | CARDIOLOGY PROGRESS NOTE ---
DATE: 11/15/2016 SUBJECTIVE: This morning, Mrs. Villegas complained of chest discomfort. She states that she has a sense of pressure in her precordium and some pleuritic type chest pain. There is minimal pain at the pacemaker pocket implant site. She has an element of nausea and anorexia as well. PHYSICAL EXAMINATION: GENERAL: She appeared well. She was alert and oriented. She answered all questions appropriately. VITAL SIGNS: This morning included blood pressure of 131/90 and her pulse was 72. LUNGS: Auscultation of her lungs revealed to be clear in the apices, there was good air movement. CARDIAC: Revealed her to be in a regular rhythm. I do not appreciate any murmurs or rubs. Evaluation of her pacemaker implant site did not reveal any evidence of hematoma. There is no significant erythema. LABORATORY STUDIES: Included a white cell count of 8.6, hemoglobin of 12.7, and platelet count of 194. Sodium is 140, potassium is 4.1, BUN was 10, creatinine was 0.8. IMAGING DATA: Evaluation of an x-ray performed today suggested an abnormality in the right ventricular pacing lead. At bedside, an echocardiogram performed earlier this morning with limited views suggested a very small pericardial effusion. Interrogation of the device revealed reasonable numbers including an improved threshold from yesterday and stable impedances. ASSESSMENT AND PLAN: 1. Complete heart block. The patient underwent placement of dual chamber permanent pacemaker yesterday for syncope in the setting of complete heart block. No additional episodes of complete heart block seen. 2. Likely pericarditis secondary to right ventricular lead perforation. At this point, the patient is hemodynamically stable. There is an element of normal lead function. I did discuss with the patient the likelihood that we will need to revise the lead based on the x-ray appearance and her symptoms and if she had eaten breakfast will need to proceed later in the day.
--- NOTE | 2016-11-15 15:02 | OPERATIVE REPORT ---
DATE OF OPERATION: 11/15/2016 PROCEDURE PERFORMED: 1. Pericardiocentesis. STAFF HEMATOLOGY TECHNOLOGIST: Dr. Ron Shah. INDICATIONS: Mrs. Nadiya Villegas is a 71-year-old male who was believed to have suffered a perforation of her right ventricle secondary to placement of a pacemaker lead. This morning, the patient experienced an acute episode of worsening chest discomfort followed by nausea and diaphoresis. This was associated with an element of hypotension and tachycardia. Upon additional evaluation, the patient appeared to be hemodynamically unstable and initial attempts were made to perform pericardiocentesis at the bedside. With volume resuscitation and institution of pressure support, she became hemodynamically stable and was transported to the catheterization suite for additional evaluation and treatment. PROCEDURE IN DETAIL: The patient was informed of the risks, benefits and alternatives to the procedure. Her family was also informed of the pending procedure. The area over the xiphoid process was subsequently prepped and draped in the usual sterile fashion. The area under the xiphoid process was subsequently anesthetized using infiltration of lidocaine solution subcutaneously. A standard 18 gauge thin wall needle was then employed under ultrasound guidance for access of the pericardial space. Initial passage of a wire for guidance suggested entry into the right ventricle. The wire was withdrawal and needle was withdrawal slightly with easy passage of the wire into what appeared to be the pericardial space. This was then exchanged for a dilator and subsequently pigtail multi-hole catheter. At this point, 200 mL of bloody fluid was removed from the pericardial space with improvement noted on echocardiography. There was transient improvement in the patient's hemodynamics. The drain was subsequently sutured into place with silk suture and a suction device was applied for continued. Sterile dressing was also applied. There did not appear to be any immediate complications associated with this procedure. IMPRESSION: Successful implantation of pericardial drain. I attest to the content of the Intraoperative Record and any orders documented therein. Any exceptio ns are noted below.
--- NOTE | 2016-11-15 15:10 | ECHOCARDIOGRAM REPORT ---
*NOTICE TO RECEIVING DEMOCRAT AGENCY This information is strictly Confidential and protected under [place] law. [place] law prohibits you from making any further disclosure of this information unless further disclosure is expressly permitted by the written consent of the person to whom it pertains or is authorized by law. A general authorization for the release of medical or other information is not sufficient for this purpose. Hospital accepts no responsibility if the information is made available to any other person, INCLUDING THE PATIENT. Interpretation Summary * Name: MOR BARRIGA Study Date: 11/15/2016 08:04 AM BP: 128/75 mmHg * Patient Location: [facility] HR: 75 * : 1945 (M/d/yyyy) Gender: Female Height: 61 in * Age: 71 yrs Ethnicity: [place] Weight: 177 lb * Referring Physician: ZAIDA GARSIA * Performed By: Anjelica Hayes RDCS * * Reason For Study: LTD FOR EFFUSION * BSA: 1.8 m2 * History: LTD EFFUSION * -- Conclusions -- * Limited study. * Left ventricular systolic function is normal. * No regional wall motion abnormalities noted. * Ejection Fraction = 60-65%. * There is mild concentric left ventricular hypertrophy. * There is mild to moderate right ventricular hypertrophy. * Small pericardial effusion. Procedure Details * Left Ventricle The left ventricle is normal in size. There is mild concentric left ventricular hypertrophy. Left ventricular systolic function is normal. Ejection Fraction = 60-65%. No regional wall motion abnormalities noted. * Right Ventricle There is mild to moderate right ventricular hypertrophy. * Atria The left atrial size is normal. Right atrium not well visualized. * Mitral Valve The mitral valve is grossly normal. There is no mitral valve stenosis. Significant mitral regurgitation is absent. * Tricuspid Valve The tricuspid valve is not well visualized. Significant tricuspid regurgitation is absent. * Aortic Valve The aortic valve is not well visualized. The aortic valve opens well. No hemodynamically significant valvular aortic stenosis. No aortic regurgitation is present. * Pulmonic Valve The pulmonic valve is not well visualized. * Great Vessels The aortic root is normal size. * Pericardium/Pleural Small pericardial effusion. * Great Vessels IVC not seen. *
--- NOTE | 2016-11-15 15:16 | DIAGNOSTIC IMAGING REPORT ---
CHEST ONE VIEW PORTABLE HISTORY: s/p chest tube placement COMPARISON: Chest 11/15/2016. FINDINGS: Interval placement left-sided chest tube which terminates in the left upper lung zone. Small amount of gas within the left pleural space consistent with a pneumothorax. Moderate left pleural effusion/hemothorax persists. Cardiac silhouette is stable in size. Left-sided dual-chamber pacemaker is again noted. Small pericardial catheter is noted. The right lung is clear. IMPRESSION: 1. Interval placement of a left-sided chest tube. Small amount of gas within the left pleural space consistent with a pneumothorax. 2. Moderate left pleural effusion/hemothorax persists. Electronically signed by: Reece Alaniz M.D. 11/15/2016 3:15 PM Dictated Date/Time: 11/15/2016 3:12 PM
[2016-11-15] MEDS: CALCIUM 600MG + VIT D 400 IU TAB PO SCH ×2 (15:30→20:35)
[2016-11-15] MEDS ORDERED: DOPAMINE 400MG / D5W IV PRN (15:30)
--- NOTE | 2016-11-15 15:37 | Critical Care Progress Note ---
Critical Care Progress Note Date of Service Nov 15, 2016. Attending Dr. Steele Subjective 71-year-old female with past medical history of hypertension and vertigo here after she experienced a syncopal attack at home after a bowel movement that had lasted for 15 minutes. She was noted to have a transient complete heart block with long pause. Syncopal episode thought to be secondary to transient complete heart block with a vasovagal component. Status post dual chamber pacemaker placed yesterday. She had tolerated the procedure well. This morning, while she got up from bed to use the restroom, she had a syncopal episode and complained of chest pain with nausea and diaphoresis after regaining consciousness. She was hypotensive and tachycardic. Echo had revealed pericardial effusion secondary to perforation of the right ventricle secondary to placement of a pacemaker lead. Pericardiocentesis at bedside was attempted as she was unstable but after fluids and Levophed, she became hemodynamically stable and was transferred to the catheterization suite. She had a successful placement of pericardial drain and also a right femoral sheath. CT abdomen and pelvis revealed a left-sided moderate Haemothorax and the left- sided chest tube was placed to suction. She complains of pain in her right groin and chest area but denies any difficulty breathing or palpitations. Objective General Appearance: well-appearing, WD/WN Eyes: EOMI, sclerae normal, conjunctivae normal ENT: normal ear exam, normal nasal exam, normal mouth exam Respiratory: breath sounds normal Cardiovasular: regular rate/rhythm, normal S1S2, no murmur Abdomen: non tender, no masses, no guarding Psychiatric: normal affect Assessment & Plan 71-year-old female with past medical history of hypertension and vertigo presented after a syncopal episode after having a bowel movement. EKG revealed a transient complete heart block. Status post dual-chamber pacemaker placed yesterday but had experienced a syncopal episode with chest pressure this morning With nausea and diaphoresis. She was unstable with hypotension and tachycardia but responded to Levophed and fluid resuscitation. She was found to have a pericardial effusion secondary to puncture of the right ventricular wall due to a lead from the pacemaker and was taken to the [facility] with successful placement of pericardial drain. CT abdomen and pelvis revealed a left-sided moderate large hemithorax and a chest tube was placed to suction. She is currently receiving PRBC transfusion. Neurology - Alert, awake and oriented - History of vertigo: Continue meclizine PRN - Pain control with roxycodone 5 mg every 4 hours as needed and tramadol as needed CVS: Pericardial effusion: s/p pericardial drain placement - Secondary to puncture of the right ventricular wall by ventricular lead of the pacemaker - Transient complete heart block Status post dual-chamber pacemaker placement but ventricular lead in the ventricular wall causing pericardial effusion - Will be readjusted tomorrow Hypotension: - Currently on norepinephrine - Status post 1 PRBC transfusion, second unit currently transfusing Respiratory - Left-sided moderate hemothorax on CT Status post left chest tube placement to suction - RAD: Continue Combivent inhaler GI/FEN: - GERD: Ranitidine 150 by mouth twice a day - Bowel regimen: Senna, milk of magnesia - Nothing by mouth from midnight - DVT prophylaxis: Heparin 5000 subcutaneous 3 times a day Tubes/drains - Left-sided chest tube to suction - Pericardial drain - Femoral sheath with triple lumen catheter and arterial line - Mercedes catheter CODE STATUS - Level I full code Disposition - ICU for cardiac monitoring Resident Physician Supervision Note: I was present with Dr. Tracie David during the history and exam. I discussed the case with the resident and agree with the findings and plan as documented in the note. Post pericardiocentesis she was quite tachycardic at 130-140 bpm. That improved with weaning from the dopamine and with blood transfusion Transfuse 2 units PRBC, so far she drained 250 ml form the pericardial tube and 400 ml from the chest tube. Check CBC every 6 hours till tomorrow and reassess We have 4 more units of blood on hold For eventual lead repositioning. Documented By: Mick Steele MD Consults & Procedures Consultants: Cardiology Procedures: 11/14/16 - PPM 11/15/16 - Pericardiocentesis with pericardial drain 11/15/16 - Left chest tube 28 Fr Data Medications: Current Inpatient Medications Medications (Trade) Dose Ordered Sig/Barb Route Start Time Stop Time Status Last Admin Dose Admin Ioversol (Optiray 320) 125 ml UD PRN IV 11/12/16 10:30 11/16/16 10:29 Al Hydrox/Mg Hydrox/Simethicone (Maalox Max Susp) 15 ml Q4H PRN PO 11/12/16 12:15 12/12/16 12:14 Magnesium Hydroxide (Milk Of Magnesia Susp) 30 ml Q12H PRN PO 11/12/16 12:15 12/12/16 12:14 Ranitidine HCl (zANTac TAB) 150 mg BID PO 11/12/16 21:00 12/12/16 20:59 11/14/16 21:02 150 MG Calcium/Vitamin D (Caltrate Plus Tab) 1 tab BID PO 11/12/16 21:00 12/12/16 20:59 11/14/16 21:01 1 TAB Albuterol/ Ipratropium (Combivent Respimat Inh) 1 puffs QID INH 11/12/16 17:00 12/12/16 16:59 11/14/16 21:01 1 PUFFS Meclizine HCl (Antivert Tab) 25 mg TID PRN PO 11/12/16 16:30 12/12/16 16:29 Nitroglycerin (Nitrostat Tab) 0.4 mg PRN PRN UT 11/12/16 16:30 12/12/16 16:29 Multivitamins/ Minerals (Multivitamin W/ Minerals Tab) 1 tab BID PO 11/12/16 21:00 12/12/16 20:59 11/14/16 21:02 1 TAB Senna/Docusate Sodium (Senokot S Tab) 3 tab DAILY PO 11/13/16 09:00 12/13/16 08:59 11/14/16 14:12 3 TAB Tramadol HCl (Ultram Tab) 50 mg BID PRN PO 11/12/16 16:30 12/12/16 16:29 11/14/16 15:46 50 MG Cholecalciferol (Vitamin D Tab) 2,000 inter.unit DAILY PO 11/13/16 09:00 12/13/16 08:59 11/14/16 14:13 2,000 INTER.UNIT Heparin Sodium (Porcine) 5000 unit 5,000 unit Q8 SQ 11/12/16 22:00 12/12/16 21:59 11/15/16 06:29 5,000 UNIT Cefazolin Sodium/ Dextrose (Ancef Iv/D5 50ml) 60 ml @ 100 mls/hr Q8H IV 11/14/16 22:00 11/15/16 21:59 11/15/16 06:28 100 MLS/HR Acetaminophen (Tylenol Tab) 650 mg Q4H PRN PO 11/14/16 13:45 12/14/16 13:44 Oxycodone HCl (Roxicodone Immediate Rel Tab) 5 mg Q4 PRN PO 11/14/16 13:45 11/28/16 13:44 11/15/16 03:29 5 MG Ondansetron HCl 4 mg 4 mg Q4H PRN IV 11/14/16 15:30 12/14/16 15:29 11/15/16 11:07 4 MG Norepinephrine Bitartrate/ Dextrose (Levophed Inj/ D5W 500ml) 508 ml @ 0 mls/hr Q0M PRN IV 11/15/16 11:00 12/15/16 10:59 Ioversol (Optiray 320) 100 ml UD PRN IV 11/15/16 11:15 11/19/16 11:14 I & O: 24-Hour Column 11/15/16 08:00 Intake Total 2293 ml Output Total 2100 ml Balance 193 ml Vital Signs: Date Time Temp Pulse Resp B/P Pulse Ox O2 Delivery O2 Flow Rate FiO2 11/15/16 13:17 36.8 120 22 119/59 97 6.0 11/15/16 09:30 123 91 11/15/16 09:28 127 26 114/80 89 11/15/16 09:28 127 26 114/80 89 11/15/16 09:26 131 20 111/85 11/15/16 09:26 131 20 111/85 11/15/16 09:24 23 125/72 11/15/16 09:24 23 125/72 11/15/16 09:22 29 64/30 11/15/16 09:22 29 64/30 11/15/16 09:21 20 11/15/16 09:21 20 11/15/16 09:20 23 11/15/16 09:18 38 93/65 11/15/16 09:18 38 93/65 11/15/16 09:16 17 128/120 11/15/16 09:16 17 128/120 11/15/16 09:15 25 11/15/16 09:11 129/86 11/15/16 09:07 78/64 11/15/16 09:04 66/54 11/15/16 09:04 66/54 11/15/16 09:01 56/36 11/15/16 09:01 56/36 11/15/16 09:00 18 11/15/16 09:00 18 11/15/16 08:59 100 25 63/51 11/15/16 08:57 95 19 63/49 11/15/16 08:53 98 15 62/46 11/15/16 08:52 96 15 56/40 11/15/16 08:45 82 26 61/47 11/15/16 08:42 82 15 56/40 11/15/16 08:35 75 26 107/68 11/15/16 08:30 37 18 11/15/16 07:30 36.4 72 20 131/90 94 Room Air 11/15/16 07:30 Room Air 11/15/16 04:00 Room Air 11/15/16 04:00 36.7 76 20 128/75 90 Room Air 11/15/16 00:00 37.0 84 16 134/89 95 Room Air 11/15/16 00:00 Room Air 11/14/16 20:00 37.0 77 20 140/80 91 Room Air 11/14/16 20:00 91 Room Air 11/14/16 16:00 99 Room Air 11/14/16 16:00 36.7 78 20 150/111 99 Room Air Laboratory Results: Last 24 Hours Test 11/15/16 05:20 11/15/16 08:35 11/15/16 11:01 11/15/16 11:07 White Blood Count 8.67 K/uL 27.54 K/uL Red Blood Count 4.68 M/uL 4.06 M/uL Hemoglobin 12.7 g/dL 11.2 g/dL Hematocrit 39.9 % 35.8 % Mean Corpuscular Volume 85.3 fL 88.2 fL Mean Corpuscular Hemoglobin 27.1 pg 27.6 pg Mean Corpuscular Hemoglobin Concent 31.8 g/dl 31.3 g/dl RDW Standard Deviation 49.0 fL 51.2 fL RDW Coefficient of Variation 15.7 % 15.8 % Platelet Count 194 K/uL 255 K/uL Mean Platelet Volume 9.9 fL 10.3 fL Sodium Level 140 mmol/L 138 mmol/L Potassium Level 4.1 mmol/L 4.1 mmol/L Chloride Level 104 mmol/L 104 mmol/L Carbon Dioxide Level 31 mmol/L 25 mmol/L Anion Gap 5.0 mmol/L 9.0 mmol/L Blood Urea Nitrogen 10 mg/dl 12 mg/dl Creatinine 0.81 mg/dl 1.30 mg/dl Est Creatinine Clear Calc Drug Dose 64.5 ml/min 38.7 ml/min Estimated GFR () 85.3 48.1 Estimated GFR (Non- 73.6 41.5 BUN/Creatinine Ratio 12.5 9.3 Random Glucose 103 mg/dl 366 mg/dl Calcium Level 10.6 mg/dl 9.1 mg/dl Total Bilirubin 0.5 mg/dl Direct Bilirubin < 0.1 mg/dl Aspartate Amino Transf (AST/SGOT) 11 U/L Alanine Aminotransferase (ALT/SGPT) 13 U/L Alkaline Phosphatase 82 U/L Total Protein 6.8 gm/dl Albumin 3.4 gm/dl Creatine Kinase MB Ratio Bedside Blood Gas pH (LAB) 7.23 7.26 Bedside Blood Gas pCO2 (LAB) 49 mmHg 40 mmHg Bedside Blood Gas pO2 (LAB) < 32 mmHg 62 mmHg Bedside Blood Gas HCO3 (LAB) 21 meq/L 18 meq/L Bedside Blood Gas Total CO2 22 mEq/l 19 mEq/l Bedside Blood Gas Base Excess (LAB) -7.0 meq/L -9.0 meq/L Bedside Blood Gas O2 Saturation 36.0 % 87.0 % Neutrophils (%) (Auto) 88.4 % Lymphocytes (%) (Auto) 5.3 % Monocytes (%) (Auto) 5.4 % Eosinophils (%) (Auto) 0.2 % Basophils (%) (Auto) 0.2 % Neutrophils # (Auto) 24.35 K/uL Lymphocytes # (Auto) 1.45 K/uL Monocytes # (Auto) 1.48 K/uL Eosinophils # (Auto) 0.05 K/uL Basophils # (Auto) 0.06 K/uL Immature Granulocyte % (Auto) 0.5 % Immature Granulocyte # (Auto) 0.15 K/uL Prothrombin Time 11.3 SECONDS Prothromb Time International Ratio 1.1 Beta-Hydroxybutyric Acid 9.20 mg/dL IMPRESSION: 1. The ventricular lead of the patient's left dual-chamber central venous pacemaker has perforated the right particular apex and terminates within the anterior pericardial fat 2. A pericardial catheter is visualized. There is no significant pericardial effusion 3. Small pneumomediastinum 4. Moderate left-sided hemothorax 5. Splenic infarcts 6. Bowel containing left inguinal hernia. No current evidence of obstruction 7. Right femoral arterial and venous catheters. There is a small surrounding hematoma. Air within the presumed hematoma is likely iatrogenic. 8. Normal appendix. Diverticulosis. No evidence of acute diverticulitis.
--- NOTE | 2016-11-15 17:29 | Procedure Note ---
Procedure Note Procedure Date Nov 15, 2016. Procedure Description Procedure Name: Right Heart Catheterization. Femoral Arterial Line Placement. Procedure time out: side/site verified, patient ID confirmed Consent obtained: verbal Performed by: attending Indications: diagnostic, therapeutic Contraindications: none Description: Patient brought to [facility] emergently in the setting of hemodynamic instability and concern for pericardial tamponade. Pericardiocentesis performed by Dr. Shah. See details from his operative note for further details. Prior to pericardiocentesis - 7Fr sheath was placed to right common femoral vein for vascular access and intravenous medications. Post pericardiocentesis - 4Fr femoral arterial catheter placed into right common femoral artery under fluoroscopic guidance using a micropuncture kit for access. Femoral pressure 86/45/57 7Fr Barry from right femoral sheath: RA 5 RV 23/15 PCW 6 MPA 27/11/17 Arterial sat 87% Pa Sat 36% Complications: none Patient tolerated procedure: well Comments: Post procedure patient remained hemodynamically unstable with escalating pressor requirements. RHC remarkable for low filling pressures and inadequate tissue perfusion suggestive of hypovolemic shock. Concern for active bleeding and patient sent to directly to CT scan to evaluate for bleeding. Central Line Indications: poor venous access, central drug admin. Prep: chlorhexadine prep, sterile drape Anesthesia: lidocaine 1% without epi Central line lumen: single Central line location: femoral (R) Additional details: percutaneous placement, Selinger technique used, line sutured, good blood return Complications: none Patient tolerated procedure: well
--- NOTE | 2016-11-15 17:36 | Procedure Note ---
Procedure Note Procedure Date Nov 15, 2016. Procedure Description Procedure Name: Left sided chest tube Procedure time out: side/site verified, patient ID confirmed, correct procedure Consent obtained: written, verbal Time of procedure: 13:00 Performed by: attending, physician senior security analyst Indications: diagnostic (Hemothorax), therapeutic Contraindications: none Description: A time out was taken and the correct patient and site identified. The patient was prepped and draped in the standard surgical fashion. 1% lidocaine without epinephrine was infused over the right midaxillary line, below the breast. Seldinger technique was used by inserting a needle in the intercostal space, threading a guidewire in the pleural space. Sequential dilators were used, and a 28 Fr chest tube was inserted in the space to a 15 cm level. A gush of dark blood was observed, initially totaling 400 ml, no air leak Complications: none Patient tolerated procedure: well Post-procedure vital signs: reviewed and stable Comments: CXR shows chest tube in position and a small amount of air in the left lateral space (consistent with air that was sucked in briefly during insertion)
[2016-11-15 18:25] LABS: HEMATOCRIT 39.3 % (37-47); MEAN CELL VOLUME 86.8 fL (80-100); MEAN CORPUSCULAR HEMOGLOBIN 28.5 pg (25-34); MEAN CORPUSCULAR HGB CONC 32.8 g/dl (32-36); PLATELET COUNT 189 K/uL (130-400); RED BLOOD COUNT 4.53 M/uL (4.2-5.4); WHITE BLOOD COUNT 21.02 K/uL (4.8-10.8)
[2016-11-16] VITALS (46 sets, daily range): BP systolic 77–149; BP diastolic 49–89; PULSE 94–120; TEMP 36.4–37.2; O2SAT 85–95
[2016-11-16 00:25] LABS: GASTRIC OCCULT BLOOD POS (NEG)
[2016-11-16 00:27] LABS: MEAN CELL VOLUME 83.8 fL (80-100); MEAN CORPUSCULAR HEMOGLOBIN 28.6 pg (25-34); MEAN CORPUSCULAR HGB CONC 34.1 g/dl (32-36); MEAN PLATELET VOLUME 9.9 fL (7.4-10.4); PLATELET COUNT 133 K/uL (130-400); RED BLOOD COUNT 4.89 M/uL (4.2-5.4); WHITE BLOOD COUNT 17.85 K/uL (4.8-10.8)
[2016-11-16] MEDS ORDERED: NURSING VERBAL MED ORDER ONE (00:45)
[2016-11-16] MEDS ORDERED: PANTOprazole INJ 40 MG in SYRINGE 0 ML IV STA ×2 (00:53→01:33)
[2016-11-16] MEDS: FENTANYL CITRATE INJ 50 MCG/1 ML 2 ML VIAL IV PRN ×6 (01:38→20:14)
[2016-11-16] MEDS: PANTOprazole INJ 40 MG in DEXTROSE 5% 100ML IV SCH ×3 (01:53→12:58)
[2016-11-16 05:08] LABS: HEMATOCRIT 41.3 % (37-47); MEAN CELL VOLUME 85.3 fL (80-100); MEAN CORPUSCULAR HEMOGLOBIN 28.5 pg (25-34); MEAN CORPUSCULAR HGB CONC 33.4 g/dl (32-36); MEAN PLATELET VOLUME 10.3 fL (7.4-10.4); PLATELET COUNT 118 K/uL (130-400); RED BLOOD COUNT 4.84 M/uL (4.2-5.4); WHITE BLOOD COUNT 20.04 K/uL (4.8-10.8)
[2016-11-16 05:41] LABS: BUN/CREATININE RATIO 16.4 (10-20); CALCIUM 8.5 mg/dl (8.5-10.1); CREATININE 0.84 mg/dl (0.60-1.20); MAGNESIUM 1.6 mg/dl (1.8-2.4); PHOSPHORUS 3.5 mg/dl (2.5-4.9); POTASSIUM 3.9 mmol/L (3.5-5.1)
--- NOTE | 2016-11-16 07:26 | DIAGNOSTIC IMAGING REPORT ---
CHEST ONE VIEW PORTABLE CLINICAL HISTORY: Left-sided chest tube. COMPARISON STUDY: 11/16/2016 FINDINGS: There is a left subclavian dual-chamber central venous pacemaker present. A left-sided chest tube is again visualized. There is diffuse haziness left hemithorax. A persistent left pleural effusion is suspected. There is left lower lobe atelectasis/consolidation. There is a small left pneumothorax. A pericardial catheter is visualized.[ IMPRESSION: 1. Persistent small left apical pneumothorax 2. No change in the position of the left-sided chest tube 3. Persistent left pleural effusion/hemothorax 4. Left basilar atelectasis/consolidation Electronically signed by: Danny Veras M.D. 11/16/2016 7:24 AM Dictated Date/Time: 11/16/2016 7:22 AM
[2016-11-16] MEDS: ONDANSETRON INJ 2 MG/ML 2 ML VIAL IV PRN (07:48)
--- NOTE | 2016-11-16 07:49 | DIAGNOSTIC IMAGING REPORT ---
CHEST ONE VIEW PORTABLE HISTORY: Atypical chest pain, emesis COMPARISON: Chest 11/15/2016. FINDINGS: Small left pneumothorax has slightly improved. Left-sided chest tube remains unchanged in position. A pericardial catheter and left-sided pacemaker are again noted. The right lung is clear. Left pleural effusion has decreased in size. Left basilar densities have also improved. IMPRESSION: 1. Improvement in the small left hydropneumothorax. 2. Left-sided chest tube is unchanged in position. 3. Left basilar densities have also improved. Electronically signed by: Reece Alaniz M.D. 11/16/2016 7:47 AM Dictated Date/Time: 11/16/2016 7:46 AM
--- NOTE | 2016-11-16 07:50 | DIAGNOSTIC IMAGING REPORT ---
KUB HISTORY: emesis, chest/generalized abdominal pain COMPARISON: Abdomen and pelvis CT 11/15/2016. FINDINGS: Mildly distended gas-filled loops of large and small bowel seen throughout the abdomen. The stomach is also mildly distended and gas-filled. Right dynamic hip screw. Pericardial catheter is identified. Cholecystectomy. No pneumoperitoneum. No pneumatosis on this supine study. No renal calculi. No ureteral calculi. IMPRESSION: Mildly distended gas-filled loops of large and small bowel as well as the stomach. Findings favor an ileus. Electronically signed by: Reece Alaniz M.D. 11/16/2016 7:49 AM Dictated Date/Time: 11/16/2016 7:47 AM
[2016-11-16] MEDS: CALCIUM 600MG + VIT D 400 IU TAB PO SCH ×2 (07:59→20:38)
[2016-11-16] MEDS: CHOLECALCIFEROL 1000 INTER.UNIT TAB PO SCH (08:00)
[2016-11-16] MEDS: RANITIDINE HCL 150 MG TAB PO SCH ×2 (08:00→20:38)
[2016-11-16] MEDS: CEROVITE ADV FORMULA TAB PO SCH ×2 (08:00→20:38)
[2016-11-16] MEDS: IPRATROPIUM BROMIDE/ALBUTEROL respimat INH INH SCH ×4 (08:01→21:07)
[2016-11-16 08:45] LABS: ISTAT ARTERIAL BLOOD GAS HCO3 23 meq/L (19-24); ISTAT ARTERIAL BLOOD GAS PCO2 36 mmHg (35-46); ISTAT ARTERIAL BLOOD GAS PO2 64 mmHg (80-95); ISTAT ARTERIAL BLOOD GAS pH 7.41 (7.35-7.45); ISTAT CARBON DIOXIDE 24 mEq/l (24-31); ISTAT DELIVERY SYSTEM Cannula; ISTAT SITE Art Line
[2016-11-16] MEDS: NORMOSOL R 1,000 ML IV SCH (08:51)
[2016-11-16] MEDS ORDERED: PANTOprazole INJ 40 MG in SYRINGE 0 ML IV SCH (09:00)
[2016-11-16] MEDS: NOREPINEPHRINE BIT INJ 8 MG in DEXTROSE 5% 500ML 500 ML IV PRN (09:02)
[2016-11-16] MEDS: MAGNESIUM SULFATE 1GM / D5W 1 GM in PREMIXED IN D5W 100 ML IV SCH ×2 (09:02→09:58)
--- NOTE | 2016-11-16 09:13 | Procedure Note ---
Pre-Mod Sedation Assessment General Date of Moderate Sedation: Nov 16, 2016. Vital Signs: Vital Signs Past 12 Hours Date Time Temp Pulse Resp B/P Pulse Ox O2 Delivery O2 Flow Rate FiO2 11/16/16 05:30 101 21 142/79 91 11/16/16 05:00 106 27 116/72 90 11/16/16 04:30 105 29 96/75 91 11/16/16 04:00 104 25 99/80 93 11/16/16 04:00 91 Nasal Cannula 3.0 11/16/16 03:45 98 25 103/79 91 11/16/16 03:30 36.5 95 28 112/82 92 11/16/16 03:15 96 26 114/76 93 11/16/16 03:00 94 24 130/72 92 11/16/16 02:16 99 30 149/78 92 11/16/16 02:00 98 30 106/75 92 11/16/16 01:30 95 18 93/75 95 11/16/16 01:00 102 23 90/74 92 11/16/16 00:16 103 26 93/78 91 11/16/16 00:00 36.4 98 26 138/89 91 11/16/16 00:00 91 Nasal Cannula 3.0 11/15/16 23:45 98 22 156/91 92 11/15/16 23:30 97 11 158/86 91 11/15/16 23:15 107 31 123/87 91 11/15/16 23:00 96 26 87/77 91 11/15/16 22:57 36.1 99 22 132/74 90 11/15/16 22:30 36.3 99 23 115/73 91 11/15/16 22:00 101 23 102/69 93 11/15/16 22:00 36.0 101 23 106/75 93 11/15/16 21:45 104 22 89/70 94 11/15/16 21:37 36.0 100 22 100/71 93 11/15/16 21:30 102 20 101/59 92 11/15/16 21:21 36.8 108 22 107/69 91 11/15/16 21:15 105 24 97/58 93 Review Cardiovascular: regular rate, rhythm, + tachycardia Lungs: lungs clear, no respiratory distress, + decreased breath sounds Airway Class: II Pre-Sedation Airway Assessment Oral Cavity: Dentures, WNL Able to Visualize Vocal Cords: No Short Thick Neck: No Hx of Sleep Apnea: No Smoking Status: Former Smoker Mallampati Classification: Class II ASA Classification: Class IV Procedure Planning Contraindications-for Mod Sed: None Yes (Appears hemodynamically stable with obvious concerns outlined in the progress notes. ) Notes The planned sedation has been discussed with the patient and consent obtained. I have identified the patient, determined the appropriateness of sedation and have assessed the patient immediately prior to the procedure. All medicine(s) and interventions are by my order.
--- NOTE | 2016-11-16 10:01 | CARDIOLOGY PROGRESS NOTE ---
DATE: 11/16/2016 This morning Mrs. Villegas complains primarily of chest discomfort, it is fairly severe in nature. She also has an element of nausea and was noted to have vomiting again overnight. She actually has not been out of bed. She denies significant breathing difficulty except some pain associated with deep inspiration. PHYSICAL EXAMINATION: GENERAL: She is alert and oriented. She answered all questions appropriately. She did appear to be in mild distress at times, especially with deep inspiration. CURRENT VITAL SIGNS: Include blood pressure 142/79 with pulse of 101. LUNGS: Auscultation of lung apices reveals the right side to be clear, the left side has some crackles and reduced breath sounds. CARDIAC: Reveals tachycardic rhythm but no rubs on exam. LABORATORY STUDIES: Today included a white cell count of 20.4, hemoglobin was 13.8, platelet count was 118. Sodium is 139, potassium is 3.9, BUN was 14, creatinine was 0.8. Review of her chest x-ray reveals stable placement of her pericardial drain and persistent changes on the left hemithorax. She had some minimal drainage from the pericardial drain over the course of the last 24 hours and some moderate drainage from the chest tube. ASSESSMENT AND PLAN: 1. Complete heart block. This was associated with syncope yesterday during the patient's acute episode which precipitated her decompensation. She did have a brief element of complete heart block suggesting nonfunction of the ventricular lead. 2. Left ventricular lead perforation as a complication of her initial procedure, it seemed to occur overnight subsequent to the initial implant. This did require pericardial drainage yesterday in the setting of hemodynamic instability. Plan is for lead revision today which will improve the function of the device as well as alleviate some of her chest pain symptoms. This will allow us to monitor for any additional hemorrhage into the pericardial space. 3. Left hemothorax of unclear etiology, presumably a complication of her pericardiocentesis. This did require blood transfusion and pleural drainage. She has a drain in place currently. Her hemoglobin appears to be stable. Blood pressure is improved, still an element of tachycardia, possibly related to pain and inotrope infusion. My hope is that with removal of the pacing lead from the pericardial space, some of her symptoms will improve. Also removal of the pericardial drain, which I hope to accomplish in the next 24 hours, should improve some of her symptoms. With respect to potential vascular injury in the left chest, current plan is simple monitoring for resolution.
[2016-11-16 10:33] LABS: HEMATOCRIT 39.7 % (37-47); MEAN CELL VOLUME 85.6 fL (80-100); MEAN CORPUSCULAR HEMOGLOBIN 28.9 pg (25-34); MEAN CORPUSCULAR HGB CONC 33.8 g/dl (32-36); MEAN PLATELET VOLUME 10.3 fL (7.4-10.4); PLATELET COUNT 113 K/uL (130-400); RED BLOOD COUNT 4.64 M/uL (4.2-5.4); WHITE BLOOD COUNT 19.94 K/uL (4.8-10.8)
[2016-11-16] MEDS ORDERED: LIDOCAINE HCL 1% 20 ML VIAL ONE (11:02)
[2016-11-16] MEDS ORDERED: MIDAZOLAM HCL 5 MG/ML 1 ML VIAL ONE (11:02)
[2016-11-16] MEDS ORDERED: FENTANYL CITRATE INJ 50 MCG/1 ML 2 ML VIAL ONE (11:02)
[2016-11-16] MEDS ORDERED: BACITRACIN 50000 UNIT VIAL ONE (11:02)
[2016-11-16] MEDS ORDERED: BACITRACIN OINT 0.9 GM PKT ONE (11:02)
[2016-11-16] MEDS ORDERED: BUPIVACAINE 0.5 % 5 MG/1 ML MPF 30ML VIAL ONE (11:02)
--- NOTE | 2016-11-16 11:05 | SURGICAL CONSULTATION ---
DATE OF CONSULTATION: 11/16/2016 REASON FOR CONSULTATION: 1. 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 2. Left hemothorax. HISTORY OF PRESENT ILLNESS: This is a 71-year-old female with history of hypertension and GERD, who interestingly enough also suffers from vertigo. 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 She was brought by ambulance to the Emergency Room. Interestingly enough, she has vertigo which could well be related to this. She had loss of consciousness in the past. For this reason, a pacemaker was inserted. Pacemaker was inserted on 11/14/2016. The patient was found to have a pericardial tamponade with tamponade physiology and underwent insertion of a pericardial drain which helped her quite a bit; however, she then developed hemothorax and had to have a left chest tube placed. This was done yesterday. I was asked to see the patient after an echocardiogram and the CT scan showed there is perforation of the right ventricular wall with the pacemaker. In addition, the thresholds were high. I discussed this case with the patient, her [id number], her sister, as well as Dr. Shah and Dr. Steele. At this point, the question is how to proceed. A chest tube has been inserted for her left hemothorax. PAST MEDICAL HISTORY: 1. AV dissociation. 2. Hypertension. 3. Obesity. 4. Vertigo. 5. Macular degeneration. 6. Lumbosacral disc disease. 7. Gastroesophageal reflux disease. 8. Hypertension. 9. History of smoking in the past. PAST SURGICAL HISTORY: 1. Total knee arthroplasty. 2. 4, para 4. FAMILY MEDICAL HISTORY: The patient's father from a cancer. She also had a brother who from coronary artery disease and myocardial infarction. There is a history of diabetes and hypertension in her family. She has 4 children, multiple grandchildren and great grandchildren. MEDICATIONS (PREOPERATIVELY): 1. Combivent inhaler. 2. Protonix. 3. Zantac. 4. Stool softeners. 5. Meclizine p.r.n. 6. Nitroglycerin. 7. Tramadol. ALLERGIES: ASPIRIN CAUSES ABDOMINAL PAIN WITH VOMITING. SOCIAL HISTORY: The patient is . She lives alone. She has multiple siblings who are quite supportive. She is independent with her activities of daily living. REVIEW OF SYSTEMS: The patient denies any weight loss. Up until the time this happened, she had no fevers, no chills, and no shortness of breath. She did have syncope as discussed. She has had no visual or auditory problems. She denies any GI or problems before admission, although she did have some nausea and vomiting, requiring NG tube today. She denies chest pain or palpitations. She has had no GI or symptoms otherwise. She denies any neurologic symptoms other than her vertigo and her syncope. PHYSICAL EXAMINATION: GENERAL: This is a 5-foot 1-inch, 195-pound white female who is awake, alert and oriented. HEENT: An NG tube is in place draining some bilious material. Oral mucosa is quite dry. She has no oral mucosal lesions. NECK: Thick but supple. I detect no supraclavicular or cervical lymphadenopathy or neck vein distention. She has no carotid bruits. HEART: She has a regular rate and rhythm of heart at about 110 beats per minute. I detect no significant rub. LUNGS: She has decreased breath sounds in the left base. Chest tube is in place in the left and she also has a subxiphoid pericardial catheter in place. EXTREMITIES: She really does not have much in the way of peripheral edema. She has good pulses. She has no joint effusions. NEUROLOGIC: She is awake, alert, and she can move all extremities to command. ASSESSMENT AND PLAN: Right ventricular perforation with pacemaker with subsequent tamponade and drainage of both the left pleural cavity and the pericardial sac. Hemodynamically, she is a bit better. Dr. Shah is going to reposition this ventricular catheter which I think is a good thing to do with the pericardial catheter and chest tube in place. We will follow along, and if any intervention is necessary, we will discuss. Thank you very much.
[2016-11-16] MEDS ORDERED: KEFZOL SPECIAL PROCEDURE STOCK 1 GM ADDVIAL IV ONE (11:51)
--- NOTE | 2016-11-16 12:41 | Cardiology Procedure Brief Nt ---
Preliminary Cardiology Note Procedure Date Nov 16, 2016. Pre-Procedure Diagnosis non-functioning RV lead (perforated) Post-Procedure Diagnosis same Procedure(s) Performed RV lead revision to septal location Assistant Controller Pablo Manager Test(s) none Estimated Blood Loss <10cc Medication(s) 25 mcg fentanyl,1mg versed Preliminary Findings Successful lead revision without complication Recommendations per orders Specimens none Drains pericardial, pleural Complication(s) None Disposition ICU
[2016-11-16] MEDS: ACETAMINOPHEN IV 100 ML IV PRN (13:10)
[2016-11-16] MEDS: SODIUM CHLORIDE 0.9% 1000ML 500 ML IV SCH ×2 (13:52→14:46)
--- NOTE | 2016-11-16 13:57 | DIAGNOSTIC IMAGING REPORT ---
KUB CLINICAL HISTORY: Abdomen distention COMPARISON STUDY: 11/16/2016 FINDINGS: There are multiple mildly dilated small bowel loops measuring up tor 45 mm in diameter. There is a nasogastric tube within the stomach. The inferior aspect of a pericardial drainage tube is visualized. There is gas present within the colon. There are postsurgical changes present within the right hip. IMPRESSION: Ileus pattern with slight progressive bowel dilatation. Interval placement of a nasogastric tube the tip of which projects over the gastric antrum Electronically signed by: Danny Veras M.D. 11/16/2016 1:56 PM Dictated Date/Time: 11/16/2016 1:54 PM
--- NOTE | 2016-11-16 15:05 | DIAGNOSTIC IMAGING REPORT ---
CT SCAN OF THE ABDOMEN AND PELVIS WITHOUT CONTRAST CLINICAL HISTORY: R/o obstruction, vomiting, abdominal distention COMPARISON STUDY: 11/15/2016 TECHNIQUE: CT scan of the abdomen and pelvis was performed from the lung bases to the proximal femurs. Images are reviewed in the axial, sagittal, and coronal planes. IV contrast was not administered for this examination. CT DOSE: 1098.14 mGycm FINDINGS: Lower chest: There is a persistent hemothorax. This appears slightly smaller. There is been interval insertion of a left-sided chest tube. A pericardial drain is again visualized. There is a dual-chamber central venous pacemaker. The ventricular lead is been repositioned and no longer perforates the heart. There is decreasing pneumomediastinum. There is a trace left-sided pneumothorax. There is a small right pleural effusion with right basilar atelectasis. Liver: The unenhanced liver is normal in size, contour, and attenuation. There is no intrahepatic biliary ductal dilatation. Gallbladder: Surgically absent Spleen: Normal in size and attenuation. Pancreas: Unremarkable. Adrenal glands: Unremarkable. Kidneys: The unenhanced kidneys are normal in size without hydronephrosis. There is no contour deforming renal mass lesion. No renal calculi are identified. Bowel: There is been interval insertion of a nasogastric tube. There are mildly dilated small bowel loops measuring up to 3 cm in diameter. There is gas present within the colon. The findings are felt to be secondary to an ileus. There is colonic diverticulosis. There are no findings to indicate acute appendicitis. There is fluid present within the left inguinal hernia sac. Peritoneum: There is a small amount of free pelvic fluid. No free air is visualized. Vasculature: There is no evidence of abdominal aortic aneurysm. There are right femoral venous and arterial catheters. There is a persistent hematoma surrounding the right femoral artery and vein. There are persistent air bubbles within hematoma again, likely echogenic. Adenopathy: None. Pelvic viscera: The uterus is surgically absent. There is indwelling Mercedes catheter. Skeletal structures: Postsurgical changes involve the right hip. IMPRESSION: 1. Interval placement of a left chest tube and nasogastric tube. 2. Interval repositioning of the patient's ventricular pacemaker lead 3. Decreasing left-sided hemothorax. 4. New small right pleural effusion with right basilar atelectasis 5. Ileus pattern 6. Small amount of free fluid in the pelvis 7. Fluid within a left inguinal hernia sac 8. Interval placement of a Mercedes catheter 9. Persistent hematoma surrounding the patient's right femoral venous and arterial catheters. Electronically signed by: Danny Veras M.D. 11/16/2016 3:04 PM Dictated Date/Time: 11/16/2016 2:28 PM
[2016-11-16 16:04] LABS: HEMATOCRIT 37.4 % (37-47); MEAN CORPUSCULAR HEMOGLOBIN 28.6 pg (25-34); MEAN CORPUSCULAR HGB CONC 33.7 g/dl (32-36); MEAN PLATELET VOLUME 10.2 fL (7.4-10.4); PLATELET COUNT 113 K/uL (130-400); WHITE BLOOD COUNT 18.58 K/uL (4.8-10.8)
--- NOTE | 2016-11-16 16:25 | Progress Note ---
Subjective Date of Service: Nov 15, 2016. Subjective Pt evaluation today including: conversation w/ patient, physical exam, lab review, review of studies, conversation w/ medical cost consultant, review of inpatient medication list Pain: chest pain this AM PO Intake: NPO Voiding: rodriguez catheter in place patient had some chest pain this AM which is atypical for pacemaker on CXR her ventricle lead was not in the same placement echo showed that lead was through ventricle into fat, small effusion subsequently her BP dropped, consistent with tamponade and she went to director labor standards for pericardial drain afterwards she was more hypoxic, CXR showed left sided effusion, concern for blood ICU team consulted, placed chest tube that drained 400cc of blood, hemodynamics improved patient tolerated everything reasonably well keep in ICU tonight, plan for revision of pacer leads tomorrow Problem List Medical Problems: (1) Asthma, Unspecified Status: Chronic (2) Esophageal Reflux Status: Chronic (3) Hypertension Nos Status: Chronic (4) Lumb/Lumbosac Disc Degen Status: Chronic (5) Macular Degeneration Nos Status: Chronic (6) Osteoporosis Nos Status: Chronic (7) Syncope Status: Acute (8) Vertigo Status: Chronic Review of Systems Constitutional: + fatigue, + weakness Respiratory: + shortness of breath Cardiac: + chest pain Neurologic: + weakness All Other Systems: Reviewed and Negative Medications Current Inpatient Medications Medications (Trade) Dose Ordered Sig/Barb Route Start Time Stop Time Status Last Admin Dose Admin Ioversol (Optiray 320) 125 ml UD PRN IV 11/12/16 10:30 11/16/16 10:29 Al Hydrox/Mg Hydrox/Simethicone (Maalox Max Susp) 15 ml Q4H PRN PO 11/12/16 12:15 12/12/16 12:14 Magnesium Hydroxide (Milk Of Magnesia Susp) 30 ml Q12H PRN PO 11/12/16 12:15 12/12/16 12:14 Ranitidine HCl (zANTac TAB) 150 mg BID PO 11/12/16 21:00 12/12/16 20:59 11/14/16 21:02 150 MG Calcium/Vitamin D (Caltrate Plus Tab) 1 tab BID PO 11/12/16 21:00 12/12/16 20:59 11/14/16 21:01 1 TAB Albuterol/ Ipratropium (Combivent Respimat Inh) 1 puffs QID INH 11/12/16 17:00 12/12/16 16:59 11/14/16 21:01 1 PUFFS Meclizine HCl (Antivert Tab) 25 mg TID PRN PO 11/12/16 16:30 12/12/16 16:29 Nitroglycerin (Nitrostat Tab) 0.4 mg PRN PRN UT 11/12/16 16:30 12/12/16 16:29 Multivitamins/ Minerals (Multivitamin W/ Minerals Tab) 1 tab BID PO 11/12/16 21:00 12/12/16 20:59 11/14/16 21:02 1 TAB Senna/Docusate Sodium (Senokot S Tab) 3 tab DAILY PO 11/13/16 09:00 12/13/16 08:59 11/14/16 14:12 3 TAB Tramadol HCl (Ultram Tab) 50 mg BID PRN PO 11/12/16 16:30 12/12/16 16:29 11/14/16 15:46 50 MG Cholecalciferol (Vitamin D Tab) 2,000 inter.unit DAILY PO 11/13/16 09:00 12/13/16 08:59 11/14/16 14:13 2,000 INTER.UNIT Heparin Sodium (Porcine) 5000 unit 5,000 unit Q8 SQ 11/12/16 22:00 12/12/16 21:59 11/15/16 06:29 5,000 UNIT Cefazolin Sodium/ Dextrose (Ancef Iv/D5 50ml) 60 ml @ 100 mls/hr Q8H IV 11/14/16 22:00 11/15/16 21:59 11/15/16 06:28 100 MLS/HR Acetaminophen (Tylenol Tab) 650 mg Q4H PRN PO 11/14/16 13:45 12/14/16 13:44 Oxycodone HCl (Roxicodone Immediate Rel Tab) 5 mg Q4 PRN PO 11/14/16 13:45 11/28/16 13:44 11/15/16 03:29 5 MG Ondansetron HCl 4 mg 4 mg Q4H PRN IV 11/14/16 15:30 12/14/16 15:29 11/15/16 11:07 4 MG Norepinephrine Bitartrate/ Dextrose (Levophed Inj/ D5W 500ml) 508 ml @ 0 mls/hr Q0M PRN IV 11/15/16 11:00 12/15/16 10:59 Ioversol (Optiray 320) 100 ml UD PRN IV 11/15/16 11:15 11/19/16 11:14 Miscellaneous Information (Nursing Verbal Med Order) 1 ea ONE ONCE N/A 11/15/16 15:00 11/15/16 15:01 UNV Objective Vital Signs Date Time Temp Pulse Resp B/P Pulse Ox O2 Delivery O2 Flow Rate FiO2 11/15/16 14:59 36.7 98 20 128/84 96 4.0 11/15/16 14:30 36.7 101 22 112/56 97 4.0 11/15/16 14:00 36.7 110 20 110/67 95 11/15/16 13:17 36.8 120 22 119/59 97 6.0 11/15/16 09:30 123 91 11/15/16 09:28 127 26 114/80 89 11/15/16 09:28 127 26 114/80 89 11/15/16 09:26 131 20 111/85 11/15/16 09:26 131 20 111/85 11/15/16 09:24 23 125/72 11/15/16 09:24 23 125/72 11/15/16 09:22 29 64/30 11/15/16 09:22 29 64/30 11/15/16 09:21 20 11/15/16 09:21 20 11/15/16 09:20 23 11/15/16 09:18 38 93/65 11/15/16 09:18 38 93/65 11/15/16 09:16 17 128/120 11/15/16 09:16 17 128/120 11/15/16 09:15 25 11/15/16 09:11 129/86 11/15/16 09:07 78/64 11/15/16 09:04 66/54 11/15/16 09:04 66/54 11/15/16 09:01 56/36 11/15/16 09:01 56/36 11/15/16 09:00 18 11/15/16 09:00 18 11/15/16 08:59 100 25 63/51 11/15/16 08:57 95 19 63/49 11/15/16 08:53 98 15 62/46 11/15/16 08:52 96 15 56/40 11/15/16 08:45 82 26 61/47 11/15/16 08:42 82 15 56/40 11/15/16 08:35 75 26 107/68 11/15/16 08:30 37 18 11/15/16 07:30 36.4 72 20 131/90 94 Room Air 11/15/16 07:30 Room Air 11/15/16 04:00 Room Air 11/15/16 04:00 36.7 76 20 128/75 90 Room Air 11/15/16 00:00 37.0 84 16 134/89 95 Room Air 11/15/16 00:00 Room Air 11/14/16 20:00 37.0 77 20 140/80 91 Room Air 11/14/16 20:00 91 Room Air 11/14/16 16:00 99 Room Air 11/14/16 16:00 36.7 78 20 150/111 99 Room Air Physical Exam General Appearance: WD/WN, + mild distress Eyes: normal inspection, EOMI, sclerae normal ENT: normal ENT inspection, hearing grossly normal, pharynx normal Neck: supple, no adenopathy, no JVD, trachea midline Respiratory/Chest: no respiratory distress, no accessory muscle use, + decreased breath sounds (left base) Cardiovascular: regular rate, rhythm, no edema, no gallop, no JVD, no murmur Abdomen: normal bowel sounds, non tender, soft, no organomegaly Extremities: normal range of motion, non-tender, normal inspection, no pedal edema, no calf tenderness, pelvis stable Neurologic/Psychiatric: tube builder II-XII nml as tested, no motor/sensory deficits, alert, normal mood/affect, oriented x 3 Skin: normal color, warm/dry, no rash Laboratory Results Last 24 Hours Test 11/15/16 05:20 11/15/16 08:35 11/15/16 11:01 11/15/16 11:07 White Blood Count 8.67 K/uL 27.54 K/uL Red Blood Count 4.68 M/uL 4.06 M/uL Hemoglobin 12.7 g/dL 11.2 g/dL Hematocrit 39.9 % 35.8 % Mean Corpuscular Volume 85.3 fL 88.2 fL Mean Corpuscular Hemoglobin 27.1 pg 27.6 pg Mean Corpuscular Hemoglobin Concent 31.8 g/dl 31.3 g/dl RDW Standard Deviation 49.0 fL 51.2 fL RDW Coefficient of Variation 15.7 % 15.8 % Platelet Count 194 K/uL 255 K/uL Mean Platelet Volume 9.9 fL 10.3 fL Sodium Level 140 mmol/L 138 mmol/L Potassium Level 4.1 mmol/L 4.1 mmol/L Chloride Level 104 mmol/L 104 mmol/L Carbon Dioxide Level 31 mmol/L 25 mmol/L Anion Gap 5.0 mmol/L 9.0 mmol/L Blood Urea Nitrogen 10 mg/dl 12 mg/dl Creatinine 0.81 mg/dl 1.30 mg/dl Est Creatinine Clear Calc Drug Dose 64.5 ml/min 38.7 ml/min Estimated GFR () 85.3 48.1 Estimated GFR (Non- 73.6 41.5 BUN/Creatinine Ratio 12.5 9.3 Random Glucose 103 mg/dl 366 mg/dl Calcium Level 10.6 mg/dl 9.1 mg/dl Total Bilirubin 0.5 mg/dl Direct Bilirubin < 0.1 mg/dl Aspartate Amino Transf (AST/SGOT) 11 U/L Alanine Aminotransferase (ALT/SGPT) 13 U/L Alkaline Phosphatase 82 U/L Total Protein 6.8 gm/dl Albumin 3.4 gm/dl Creatine Kinase MB Ratio Bedside Blood Gas pH (LAB) 7.23 7.26 Bedside Blood Gas pCO2 (LAB) 49 mmHg 40 mmHg Bedside Blood Gas pO2 (LAB) < 32 mmHg 62 mmHg Bedside Blood Gas HCO3 (LAB) 21 meq/L 18 meq/L Bedside Blood Gas Total CO2 22 mEq/l 19 mEq/l Bedside Blood Gas Base Excess (LAB) -7.0 meq/L -9.0 meq/L Bedside Blood Gas O2 Saturation 36.0 % 87.0 % Neutrophils (%) (Auto) 88.4 % Lymphocytes (%) (Auto) 5.3 % Monocytes (%) (Auto) 5.4 % Eosinophils (%) (Auto) 0.2 % Basophils (%) (Auto) 0.2 % Neutrophils # (Auto) 24.35 K/uL Lymphocytes # (Auto) 1.45 K/uL Monocytes # (Auto) 1.48 K/uL Eosinophils # (Auto) 0.05 K/uL Basophils # (Auto) 0.06 K/uL Immature Granulocyte % (Auto) 0.5 % Immature Granulocyte # (Auto) 0.15 K/uL Prothrombin Time 11.3 SECONDS Prothromb Time International Ratio 1.1 Beta-Hydroxybutyric Acid 9.20 mg/dL Assessment and Plan 71 yo female with PMH of HTN, GERD and vertigo. presented with syncope (also happened about 2 years ago) 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 - Syncope: suspected to be due to 3rd degree heart block seen transiently on telemetry returned to sinus rhythm, did not require transcutaneous pacing dual chamber pacemaker implanted on 11/14 complicated by tamponade, right effusion with blood today s/p pericardial drain, left sided chest tube defer to ICU and cardiology notes for full details echo: EF 65-70%, grade I diastolic dysfunction - Hypotension due to tamponade: dobutamine, BP improved after chest tube plan: keep in ICU, thoracic surgery consult Continued [facility] stay due to: other Discharge planning: home
--- NOTE | 2016-11-16 17:10 | Medical Consult ---
Consultation Date of Consultation: Nov 16, 2016. Attending Physician: Arya Barclay D.O. History of Present Illness 71 y/o female admitted for syncope and underwent pacemaker for complete heart block. She had perforation of ventricular lead which was led to hemopericardium which was percutaneously drained and developed left hemothorax for which chest tube was placed. She had abdominal pain, distention and vomiting this morning and NGT was placed and about 300 drained so far. She has some RLQ discomfort, no flatus. Has had tubal, hysterectomy, lap angelo, and ventral/incisional hernia repair. Past Medical/Surgical History Medical Problems: (1) Asthma, Unspecified Status: Chronic (2) Esophageal Reflux Status: Chronic (3) Hypertension Nos Status: Chronic (4) Lumb/Lumbosac Disc Degen Status: Chronic (5) Macular Degeneration Nos Status: Chronic (6) Osteoporosis Nos Status: Chronic (7) Syncope Status: Acute (8) Vertigo Status: Chronic Family History Diabetes mellitus Hypertension Social History Smoking Status: Former Smoker Drug Use: none Marital Status: Housing Status: lives alone Occupation Status: retired Allergies Coded Allergies: Aspirin (Verified Adverse Reaction, Mild, ABD. PAIN AND VOMITING, 11/12/16) Current Inpatient Medications Current Inpatient Medications Medications (Trade) Dose Ordered Sig/Barb Route Start Time Stop Time Status Last Admin Dose Admin Al Hydrox/Mg Hydrox/Simethicone (Maalox Max Susp) 15 ml Q4H PRN PO 11/12/16 12:15 12/12/16 12:14 Magnesium Hydroxide (Milk Of Magnesia Susp) 30 ml Q12H PRN PO 11/12/16 12:15 12/12/16 12:14 Ranitidine HCl (zANTac TAB) 150 mg BID PO 11/12/16 21:00 12/12/16 20:59 11/15/16 20:34 150 MG Calcium/Vitamin D (Caltrate Plus Tab) 1 tab BID PO 11/12/16 21:00 12/12/16 20:59 11/15/16 20:35 1 TAB Albuterol/ Ipratropium (Combivent Respimat Inh) 1 puffs QID INH 11/12/16 17:00 12/12/16 16:59 11/16/16 12:58 1 PUFFS Meclizine HCl (Antivert Tab) 25 mg TID PRN PO 11/12/16 16:30 12/12/16 16:29 Nitroglycerin (Nitrostat Tab) 0.4 mg PRN PRN UT 11/12/16 16:30 12/12/16 16:29 Multivitamins/ Minerals (Multivitamin W/ Minerals Tab) 1 tab BID PO 11/12/16 21:00 12/12/16 20:59 11/15/16 20:35 1 TAB Senna/Docusate Sodium (Senokot S Tab) 3 tab DAILY PO 11/13/16 09:00 12/13/16 08:59 11/14/16 14:12 3 TAB Tramadol HCl (Ultram Tab) 50 mg BID PRN PO 11/12/16 16:30 12/12/16 16:29 11/14/16 15:46 50 MG Cholecalciferol (Vitamin D Tab) 2,000 inter.unit DAILY PO 11/13/16 09:00 12/13/16 08:59 11/14/16 14:13 2,000 INTER.UNIT Acetaminophen (Tylenol Tab) 650 mg Q4H PRN PO 11/14/16 13:45 12/14/16 13:44 Oxycodone HCl (Roxicodone Immediate Rel Tab) 5 mg Q4 PRN PO 11/14/16 13:45 11/28/16 13:44 11/15/16 20:34 5 MG Ondansetron HCl 4 mg 4 mg Q4H PRN IV 11/14/16 15:30 12/14/16 15:29 11/16/16 07:48 4 MG Norepinephrine Bitartrate/ Dextrose (Levophed Inj/ D5W 500ml) 508 ml @ 0 mls/hr Q0M PRN IV 11/15/16 11:00 12/15/16 10:59 11/16/16 09:02 15 MLS/HR Ioversol (Optiray 320) 100 ml UD PRN IV 11/15/16 11:15 11/19/16 11:14 Fentanyl Citrate 50 mcg 50 mcg Q2H PRN IV 11/15/16 18:45 11/29/16 18:44 11/16/16 16:03 50 MCG Pantoprazole Sodium 40 mg/ Dextrose 100 ml @ 20 mls/hr Q5H IV 11/16/16 01:45 12/16/16 01:44 11/16/16 12:58 20 MLS/HR Parenteral Electrolyte Solution 1,000 ml @ 75 mls/hr [id number] IV 11/16/16 08:15 12/16/16 08:14 11/16/16 08:51 75 MLS/HR Acetaminophen 100 ml @ 400 mls/hr Q8H PRN IV 11/16/16 08:15 12/16/16 08:14 11/16/16 13:10 400 MLS/HR Cefazolin Sodium 2000 mg/Dextrose 60 ml @ 120 mls/hr PREOP IV 11/17/16 06:00 11/17/16 06:29 Cefazolin Sodium/ Dextrose (Ancef Iv/D5 50ml) 60 ml @ 100 mls/hr Q8H IV 11/16/16 20:00 11/17/16 12:35 Review of Systems Abdomen: + nausea, + pain, + vomiting Physical Exam Date Time Temp Pulse Resp B/P Pulse Ox O2 Delivery O2 Flow Rate FiO2 11/16/16 16:00 36.7 94 20 106/59 92 Nasal Cannula 5.0 90/56 11/16/16 16:00 92 Nasal Cannula 5.0 11/16/16 14:00 98 22 95/50 90 Nasal Cannula 5.0 11/16/16 13:48 97 20 94/58 90 88/49 11/16/16 13:30 104 19 79/58 89 77/56 11/16/16 13:16 37.1 100 20 106/70 90 Nasal Cannula 5.0 11/16/16 13:00 105 18 96/62 85 Room Air 11/16/16 12:00 90 Nasal Cannula 5.0 11/16/16 10:00 109 29 102/54 91 11/16/16 08:00 37.1 105 21 98/61 90 Nasal Cannula 4.0 126/70 11/16/16 08:00 Nasal Cannula 11/16/16 08:00 91 Nasal Cannula 4.0 11/16/16 07:55 110 19 126/70 90 11/16/16 05:30 101 21 142/79 91 11/16/16 05:00 106 27 116/72 90 11/16/16 04:30 105 29 96/75 91 11/16/16 04:00 104 25 99/80 93 11/16/16 04:00 91 Nasal Cannula 3.0 11/16/16 03:45 98 25 103/79 91 11/16/16 03:30 36.5 95 28 112/82 92 11/16/16 03:15 96 26 114/76 93 11/16/16 03:00 94 24 130/72 92 11/16/16 02:16 99 30 149/78 92 11/16/16 02:00 98 30 106/75 92 11/16/16 01:30 95 18 93/75 95 11/16/16 01:00 102 23 90/74 92 11/16/16 00:16 103 26 93/78 91 11/16/16 00:00 36.4 98 26 138/89 91 11/16/16 00:00 91 Nasal Cannula 3.0 11/15/16 23:45 98 22 156/91 92 11/15/16 23:30 97 11 158/86 91 11/15/16 23:15 107 31 123/87 91 11/15/16 23:00 96 26 87/77 91 11/15/16 22:57 36.1 99 22 132/74 90 11/15/16 22:30 36.3 99 23 115/73 91 11/15/16 22:00 101 23 102/69 93 11/15/16 22:00 36.0 101 23 106/75 93 11/15/16 21:45 104 22 89/70 94 11/15/16 21:37 36.0 100 22 100/71 93 11/15/16 21:30 102 20 101/59 92 11/15/16 21:21 36.8 108 22 107/69 91 11/15/16 21:15 105 24 97/58 93 11/15/16 21:09 36.4 103 22 104/70 92 11/15/16 21:00 36.5 102 16 96/61 95 11/15/16 20:41 36.5 105 20 97/62 92 11/15/16 20:15 36.3 103 21 106/63 93 11/15/16 20:00 106 21 106/85 94 11/15/16 20:00 93 Nasal Cannula 3.0 11/15/16 19:45 105 9 112/70 93 11/15/16 19:45 36.6 104 15 112/70 93 11/15/16 19:30 104 12 119/68 93 11/15/16 19:15 107 13 122/73 92 11/15/16 19:15 108 16 122/73 92 11/15/16 19:05 36.8 105 15 129/87 93 11/15/16 19:00 102 26 108/97 94 11/15/16 18:53 37.0 104 20 135/69 96 11/15/16 18:09 37.1 107 22 84/75 95 Room Air 4.0 150/99 11/15/16 18:01 103 23 150/99 96 95/84 11/15/16 18:00 105 27 96 96/83 11/15/16 17:45 105 27 90 108/80 11/15/16 17:30 102 25 124/78 95 103/78 11/15/16 17:26 37.1 99 22 104/79 95 4.0 11/15/16 17:15 98 24 97 106/81 11/15/16 17:00 99 27 121/83 98 122/81 General Appearance: no apparent distress ENT: + pertinent finding (NG at 65 cm) Respiratory/Chest: + pertinent finding (left chest tube, subxiphoid drain) Abdomen/GI: + tenderness (RLQ and some fullness likley cecum), + distended Laboratory Results Last 24 Hours Test 11/15/16 17:50 11/15/16 23:30 11/16/16 00:22 11/16/16 04:55 White Blood Count 21.02 K/uL 17.85 K/uL 20.04 K/uL Red Blood Count 4.53 M/uL 4.89 M/uL 4.84 M/uL Hemoglobin 12.9 g/dL 14.0 g/dL 13.8 g/dL Hematocrit 39.3 % 41.0 % 41.3 % Mean Corpuscular Volume 86.8 fL 83.8 fL 85.3 fL Mean Corpuscular Hemoglobin 28.5 pg 28.6 pg 28.5 pg Mean Corpuscular Hemoglobin Concent 32.8 g/dl 34.1 g/dl 33.4 g/dl RDW Standard Deviation 48.4 fL 45.8 fL 46.7 fL RDW Coefficient of Variation 15.1 % 15.0 % 15.2 % Platelet Count 189 K/uL 133 K/uL 118 K/uL Mean Platelet Volume 10.0 fL 9.9 fL 10.3 fL Bedside Glucose 156 mg/dl Gastric Fluid pH 5-7 Gastric Fluid Occult Blood POS Sodium Level 139 mmol/L Potassium Level 3.9 mmol/L Chloride Level 107 mmol/L Carbon Dioxide Level 23 mmol/L Anion Gap 9.0 mmol/L Blood Urea Nitrogen 14 mg/dl Creatinine 0.84 mg/dl Est Creatinine Clear Calc Drug Dose 59.9 ml/min Estimated GFR () 81.6 Estimated GFR (Non- 70.4 BUN/Creatinine Ratio 16.4 Random Glucose 164 mg/dl Calcium Level 8.5 mg/dl Phosphorus Level 3.5 mg/dl Magnesium Level 1.6 mg/dl Total Bilirubin 0.6 mg/dl Direct Bilirubin 0.2 mg/dl Aspartate Amino Transf (AST/SGOT) 45 U/L Alanine Aminotransferase (ALT/SGPT) 17 U/L Alkaline Phosphatase 69 U/L Total Protein 6.0 gm/dl Albumin 2.9 gm/dl Test 11/16/16 08:32 11/16/16 10:24 11/16/16 15:56 Blood Gas Sample Site Art Line Bedside Blood Gas pH (LAB) 7.41 Bedside Blood Gas pCO2 (LAB) 36 mmHg Bedside Blood Gas pO2 (LAB) 64 mmHg Bedside Blood Gas HCO3 (LAB) 23 meq/L Bedside Blood Gas Total CO2 24 mEq/l Bedside Blood Gas Base Excess (LAB) -2.0 meq/L Bedside Blood Gas O2 Saturation 92.0 % Claudio Test NA Oxygen Delivery Device Cannula White Blood Count 19.94 K/uL 18.58 K/uL Red Blood Count 4.64 M/uL 4.40 M/uL Hemoglobin 13.4 g/dL 12.6 g/dL Hematocrit 39.7 % 37.4 % Mean Corpuscular Volume 85.6 fL 85.0 fL Mean Corpuscular Hemoglobin 28.9 pg 28.6 pg Mean Corpuscular Hemoglobin Concent 33.8 g/dl 33.7 g/dl RDW Standard Deviation 48.3 fL 47.9 fL RDW Coefficient of Variation 15.4 % 15.4 % Platelet Count 113 K/uL 113 K/uL Mean Platelet Volume 10.[address] SCAN OF THE ABDOMEN AND PELVIS WITHOUT CONTRAST CLINICAL HISTORY: R/o obstruction, vomiting, abdominal distention COMPARISON STUDY: 11/15/2016 TECHNIQUE: CT scan of the abdomen and pelvis was performed from the lung bases to the proximal femurs. Images are reviewed in the axial, sagittal, and coronal planes. IV contrast was not administered for this examination. CT DOSE: 1098.14 mGycm FINDINGS: Lower chest: There is a persistent hemothorax. This appears slightly smaller. There is been interval insertion of a left-sided chest tube. A pericardial drain is again visualized. There is a dual-chamber central venous pacemaker. The ventricular lead is been repositioned and no longer perforates the heart. There is decreasing pneumomediastinum. There is a trace left-sided pneumothorax. There is a small right pleural effusion with right basilar atelectasis. Liver: The unenhanced liver is normal in size, contour, and attenuation. There is no intrahepatic biliary ductal dilatation. Gallbladder: Surgically absent Spleen: Normal in size and attenuation. Pancreas: Unremarkable. Adrenal glands: Unremarkable. Kidneys: The unenhanced kidneys are normal in size without hydronephrosis. There is no contour deforming renal mass lesion. No renal calculi are identified. Bowel: There is been interval insertion of a nasogastric tube. There are mildly dilated small bowel loops measuring up to 3 cm in diameter. There is gas present within the colon. The findings are felt to be secondary to an ileus. There is colonic diverticulosis. There are no findings to indicate acute appendicitis. There is fluid present within the left inguinal hernia sac. Peritoneum: There is a small amount of free pelvic fluid. No free air is visualized. Vasculature: There is no evidence of abdominal aortic aneurysm. There are right femoral venous and arterial catheters. There is a persistent hematoma surrounding the right femoral artery and vein. There are persistent air bubbles within hematoma again, likely echogenic. Adenopathy: None. Pelvic viscera: The uterus is surgically absent. There is indwelling Mercedes catheter. Skeletal structures: Postsurgical changes involve the right hip. IMPRESSION: 1. Interval placement of a left chest tube and nasogastric tube. 2. Interval repositioning of the patient's ventricular pacemaker lead 3. Decreasing left-sided hemothorax. 4. New small right pleural effusion with right basilar atelectasis 5. Ileus pattern 6. Small amount of free fluid in the pelvis 7. Fluid within a left inguinal hernia sac 8. Interval placement of a Mercedes catheter 9. Persistent hematoma surrounding the patient's right femoral venous and arterial catheters. Electronically signed by: Danny Veras M.D. 11/16/2016 3:04 PM Dictated Date/Time: 11/16/2016 2:28 PM Assessment & Plan complicated postoperative course, ileus XR and CT consistent with ileus. Although cecum appears significantly dilated on XR, CT shows only about 6 cm distention. Continue NG decompression. She was seen with Dr. Sewell and we continue to follow her progress.
[2016-11-16] MEDS ORDERED: SODIUM CHLORIDE 0.9% 1000ML 1,000 ML IV SCH (17:30)
--- NOTE | 2016-11-16 17:37 | Critical Care Progress Note ---
Critical Care Progress Note Date of Service Nov 16, 2016. Attending Dr. Steele Subjective 71-year-old female with past medical history of hypertension and vertigo here after she experienced a syncopal attack at home after a bowel movement that had lasted for 15 minutes. She was noted to have a transient complete heart block with long pause. Syncopal episode thought to be secondary to transient complete heart block with a vasovagal component. Had a dual chamber pacemaker placed on 11/14 but was found to have a pericardial effusion due in to perforation of the right ventricle secondary to placement of a pacemaker lead. She had a pericardial drain along with right femoral sheath placed. In CT abdomen and pelvis revealed a left-sided moderate Haemothorax and the left -sided chest tube was placed with about 1000 mls of bloody drainage. She complained of an episode of coffee-ground emesis yesterday and a KUB revealed distended loops of bowel suggestive of ileus. this morning she continued to have nausea and an NG tube was placed. She was scheduled for a revision of the pacemaker leads today. Objective GENERAL: Patient is in no acute distress. HEENT: mucous membranes moist, no nasal congestion, no scleral icterus. NECK: No stridor, trachea is midline, NG tube in place LUNGS: decreased breath sounds on left, left sided chest tube HEART: Without murmurs gallops or rubs, tachycardic, pericardial drain ABDOMEN: Soft, distended EXTREMITIES: No cyanosis or edema, Right femoral sheath NEUROLOGIC: Oriented x 3, no acute motor or sensory deficits, no focal weakness. Current SOFA Score SOFA Score Response (Comments) Value PaO2/FiO2 (mmHg) < 300 2 Clarke Coma Score 13 - 14 1 Level of Hypotension MAP less than 70 1 Creatinine (mg/dL) 1.2 - 1.9 1 Total 5 Assessment & Plan 71-year-old female with past medical history of hypertension and vertigo presented after a syncopal episode after having a bowel movement. EKG revealed a transient complete heart block. Status post dual-chamber pacemaker placed on11/14 and was found to have a pericardial effusion secondary to puncture of the right ventricular wall due to a lead from the pacemaker and had successful placement of pericardial drain. CT abdomen and pelvis revealed a left-sided moderate large hemothorax and a chest tube was placed to suction. She received a total of 4 units of PRBCs. Had an episode of coffee-ground emesis overnight , started on Protonix drip and NG tube was placed today. She had a successful revision of her pacemaker leads today. After the procedure she was noted to have abdominal distention and a CT abdomen and pelvis was ordered after a flatplate revealed dilated loops of bowel. Neurology - Alert, awake and oriented - History of vertigo: meclizine on hold due to NPO - Pain control with IV acetaminophen and fentanyl CVS: Pericardial effusion: s/p pericardial drain placement - Secondary to puncture of the right ventricular wall by ventricular lead of the pacemaker - Transient complete heart block Status post dual-chamber pacemaker placement but ventricular lead in the ventricular wall causing pericardial effusion - Pacemaker lead revision today Hypotension: - Currently on norepinephrine - Status post 3 PRBC transfusion Respiratory - Left-sided moderate hemothorax on CT Status post left chest tube placement to suction - 1000 ml of bloody drainage - Thoracic surgery consultation - appreciate input - RAD: Continue Combivent inhaler GI/FEN: Coffee-ground emesis: NPO - NG tube in place - Protonix drip Dilated bowel loops on CT abdomen and pelvis - Gen. surgery consultation - NG tube decompression Renal: - IV fluids: Normosol - Electrolytes: Mg at 1.6- replaced - DVT prophylaxis: SCDs Tubes/drains - Left-sided chest tube to suction - Pericardial drain - Femoral sheath with triple lumen catheter and arterial line - Mercedes catheter - NG tube CODE STATUS - Level I full code Disposition - ICU for cardiac monitoring Resident Physician Supervision Note: I was present with Dr. Angella David during the history and exam. I discussed the case with the resident and agree with the findings and plan as documented in the note. Any exceptions or clarifications are listed here: Developing ileus, started vomiting last night, some coffee ground material. On Protonix drip, will deescalate tomorrow to BID Protonix. Small amount of material suctioned, approx 200 ml, mostly gas, No active bleeding. Surgery following, medical management for now, NPO S/p revision of RV lead. Maintain pericardial drain, minimal output this afternoon. Maintain chest tube, will likely require VATS. Bolus more fluids, taper down Levophed as tolerated Documented By: Mick Steele MD Consults & Procedures Consultants: Cardiology, thoracic surgery, general surgery Procedures: 11/14/16 - PPM 11/15/16 - Pericardiocentesis with pericardial drain 11/15/16 - Left chest tube 28 Fr 11/16/16- PPM revision Data Medications: Current Inpatient Medications Medications (Trade) Dose Ordered Sig/Barb Route Start Time Stop Time Status Last Admin Dose Admin Al Hydrox/Mg Hydrox/Simethicone (Maalox Max Susp) 15 ml Q4H PRN PO 11/12/16 12:15 12/12/16 12:14 Magnesium Hydroxide (Milk Of Magnesia Susp) 30 ml Q12H PRN PO 11/12/16 12:15 12/12/16 12:14 Ranitidine HCl (zANTac TAB) 150 mg BID PO 11/12/16 21:00 12/12/16 20:59 11/15/16 20:34 150 MG Calcium/Vitamin D (Caltrate Plus Tab) 1 tab BID PO 11/12/16 21:00 12/12/16 20:59 11/15/16 20:35 1 TAB Albuterol/ Ipratropium (Combivent Respimat Inh) 1 puffs QID INH 11/12/16 17:00 12/12/16 16:59 11/16/16 12:58 1 PUFFS Meclizine HCl (Antivert Tab) 25 mg TID PRN PO 11/12/16 16:30 12/12/16 16:29 Nitroglycerin (Nitrostat Tab) 0.4 mg PRN PRN UT 11/12/16 16:30 12/12/16 16:29 Multivitamins/ Minerals (Multivitamin W/ Minerals Tab) 1 tab BID PO 11/12/16 21:00 12/12/16 20:59 11/15/16 20:35 1 TAB Senna/Docusate Sodium (Senokot S Tab) 3 tab DAILY PO 11/13/16 09:00 12/13/16 08:59 11/14/16 14:12 3 TAB Tramadol HCl (Ultram Tab) 50 mg BID PRN PO 11/12/16 16:30 12/12/16 16:29 11/14/16 15:46 50 MG Cholecalciferol (Vitamin D Tab) 2,000 inter.unit DAILY PO 11/13/16 09:00 12/13/16 08:59 11/14/16 14:13 2,000 INTER.UNIT Acetaminophen (Tylenol Tab) 650 mg Q4H PRN PO 11/14/16 13:45 12/14/16 13:44 Oxycodone HCl (Roxicodone Immediate Rel Tab) 5 mg Q4 PRN PO 11/14/16 13:45 11/28/16 13:44 11/15/16 20:34 5 MG Ondansetron HCl 4 mg 4 mg Q4H PRN IV 11/14/16 15:30 12/14/16 15:29 11/16/16 07:48 4 MG Norepinephrine Bitartrate/ Dextrose (Levophed Inj/ D5W 500ml) 508 ml @ 0 mls/hr Q0M PRN IV 11/15/16 11:00 12/15/16 10:59 11/16/16 09:02 15 MLS/HR Ioversol (Optiray 320) 100 ml UD PRN IV 11/15/16 11:15 11/19/16 11:14 Fentanyl Citrate 50 mcg 50 mcg Q2H PRN IV 11/15/16 18:45 11/29/16 18:44 11/16/16 16:03 50 MCG Pantoprazole Sodium 40 mg/ Dextrose 100 ml @ 20 mls/hr Q5H IV 11/16/16 01:45 12/16/16 01:44 11/16/16 12:58 20 MLS/HR Parenteral Electrolyte Solution 1,000 ml @ 75 mls/hr [id number] IV 11/16/16 08:15 12/16/16 08:14 11/16/16 08:51 75 MLS/HR Acetaminophen 100 ml @ 400 mls/hr Q8H PRN IV 11/16/16 08:15 12/16/16 08:14 11/16/16 13:10 400 MLS/HR Cefazolin Sodium 2000 mg/Dextrose 60 ml @ 120 mls/hr PREOP IV 11/17/16 06:00 11/17/16 06:29 Cefazolin Sodium/ Dextrose (Ancef Iv/D5 50ml) 60 ml @ 100 mls/hr Q8H IV 11/16/16 20:00 11/17/16 12:35 I & O: 24-Hour Column 11/16/16 07:58 Intake Total 6986 ml Output Total 1735 ml Balance 5251 ml Vital Signs: Date Time Temp Pulse Resp B/P Pulse Ox O2 Delivery O2 Flow Rate FiO2 11/16/16 16:00 36.7 94 20 106/59 92 Nasal Cannula 5.0 90/56 11/16/16 16:00 92 Nasal Cannula 5.0 11/16/16 14:00 98 22 95/50 90 Nasal Cannula 5.0 11/16/16 13:48 97 20 94/58 90 88/49 11/16/16 13:30 104 19 79/58 89 77/56 11/16/16 13:16 37.1 100 20 106/70 90 Nasal Cannula 5.0 11/16/16 13:00 105 18 96/62 85 Room Air 11/16/16 12:00 90 Nasal Cannula 5.0 11/16/16 10:00 109 29 102/54 91 11/16/16 08:00 37.1 105 21 98/61 90 Nasal Cannula 4.0 126/70 11/16/16 08:00 Nasal Cannula 11/16/16 08:00 91 Nasal Cannula 4.0 11/16/16 07:55 110 19 126/70 90 11/16/16 05:30 101 21 142/79 91 11/16/16 05:00 106 27 116/72 90 11/16/16 04:30 105 29 96/75 91 11/16/16 04:00 104 25 99/80 93 11/16/16 04:00 91 Nasal Cannula 3.0 11/16/16 03:45 98 25 103/79 91 11/16/16 03:30 36.5 95 28 112/82 92 11/16/16 03:15 96 26 114/76 93 11/16/16 03:00 94 24 130/72 92 11/16/16 02:16 99 30 149/78 92 11/16/16 02:00 98 30 106/75 92 11/16/16 01:30 95 18 93/75 95 11/16/16 01:00 102 23 90/74 92 11/16/16 00:16 103 26 93/78 91 11/16/16 00:00 36.4 98 26 138/89 91 11/16/16 00:00 91 Nasal Cannula 3.0 11/15/16 23:45 98 22 156/91 92 11/15/16 23:30 97 11 158/86 91 11/15/16 23:15 107 31 123/87 91 11/15/16 23:00 96 26 87/77 91 11/15/16 22:57 36.1 99 22 132/74 90 11/15/16 22:30 36.3 99 23 115/73 91 11/15/16 22:00 101 23 102/69 93 11/15/16 22:00 36.0 101 23 106/75 93 11/15/16 21:45 104 22 89/70 94 11/15/16 21:37 36.0 100 22 100/71 93 11/15/16 21:30 102 20 101/59 92 11/15/16 21:21 36.8 108 22 107/69 91 11/15/16 21:15 105 24 97/58 93 11/15/16 21:09 36.4 103 22 104/70 92 11/15/16 21:00 36.5 102 16 96/61 95 11/15/16 20:41 36.5 105 20 97/62 92 11/15/16 20:15 36.3 103 21 106/63 93 11/15/16 20:00 106 21 106/85 94 11/15/16 20:00 93 Nasal Cannula 3.0 11/15/16 19:45 105 9 112/70 93 11/15/16 19:45 36.6 104 15 112/70 93 11/15/16 19:30 104 12 119/68 93 11/15/16 19:15 107 13 122/73 92 11/15/16 19:15 108 16 122/73 92 11/15/16 19:05 36.8 105 15 129/87 93 11/15/16 19:00 102 26 108/97 94 11/15/16 18:53 37.0 104 20 135/69 96 11/15/16 18:09 37.1 107 22 84/75 95 Room Air 4.0 150/99 11/15/16 18:01 103 23 150/99 96 95/84 11/15/16 18:00 105 27 96 96/83 11/15/16 17:45 105 27 90 108/80 11/15/16 17:30 102 25 124/78 95 103/78 11/15/16 17:26 37.1 99 22 104/79 95 4.0 11/15/16 17:15 98 24 97 106/81 Laboratory Results: Last 24 Hours Test 11/15/16 17:50 11/15/16 23:30 11/16/16 00:22 11/16/16 04:55 White Blood Count 21.02 K/uL 17.85 K/uL 20.04 K/uL Red Blood Count 4.53 M/uL 4.89 M/uL 4.84 M/uL Hemoglobin 12.9 g/dL 14.0 g/dL 13.8 g/dL Hematocrit 39.3 % 41.0 % 41.3 % Mean Corpuscular Volume 86.8 fL 83.8 fL 85.3 fL Mean Corpuscular Hemoglobin 28.5 pg 28.6 pg 28.5 pg Mean Corpuscular Hemoglobin Concent 32.8 g/dl 34.1 g/dl 33.4 g/dl RDW Standard Deviation 48.4 fL 45.8 fL 46.7 fL RDW Coefficient of Variation 15.1 % 15.0 % 15.2 % Platelet Count 189 K/uL 133 K/uL 118 K/uL Mean Platelet Volume 10.0 fL 9.9 fL 10.3 fL Bedside Glucose 156 mg/dl Gastric Fluid pH 5-7 Gastric Fluid Occult Blood POS Sodium Level 139 mmol/L Potassium Level 3.9 mmol/L Chloride Level 107 mmol/L Carbon Dioxide Level 23 mmol/L Anion Gap 9.0 mmol/L Blood Urea Nitrogen 14 mg/dl Creatinine 0.84 mg/dl Est Creatinine Clear Calc Drug Dose 59.9 ml/min Estimated GFR () 81.6 Estimated GFR (Non- 70.4 BUN/Creatinine Ratio 16.4 Random Glucose 164 mg/dl Calcium Level 8.5 mg/dl Phosphorus Level 3.5 mg/dl Magnesium Level 1.6 mg/dl Total Bilirubin 0.6 mg/dl Direct Bilirubin 0.2 mg/dl Aspartate Amino Transf (AST/SGOT) 45 U/L Alanine Aminotransferase (ALT/SGPT) 17 U/L Alkaline Phosphatase 69 U/L Total Protein 6.0 gm/dl Albumin 2.9 gm/dl Test 11/16/16 08:32 11/16/16 10:24 11/16/16 15:56 Blood Gas Sample Site Art Line Bedside Blood Gas pH (LAB) 7.41 Bedside Blood Gas pCO2 (LAB) 36 mmHg Bedside Blood Gas pO2 (LAB) 64 mmHg Bedside Blood Gas HCO3 (LAB) 23 meq/L Bedside Blood Gas Total CO2 24 mEq/l Bedside Blood Gas Base Excess (LAB) -2.0 meq/L Bedside Blood Gas O2 Saturation 92.0 % Claudio Test NA Oxygen Delivery Device Cannula White Blood Count 19.94 K/uL 18.58 K/uL Red Blood Count 4.64 M/uL 4.40 M/uL Hemoglobin 13.4 g/dL 12.6 g/dL Hematocrit 39.7 % 37.4 % Mean Corpuscular Volume 85.6 fL 85.0 fL Mean Corpuscular Hemoglobin 28.9 pg 28.6 pg Mean Corpuscular Hemoglobin Concent 33.8 g/dl 33.7 g/dl RDW Standard Deviation 48.3 fL 47.9 fL RDW Coefficient of Variation 15.4 % 15.4 % Platelet Count 113 K/uL 113 K/uL Mean Platelet Volume 10.3 fL 10.2 fL KUB CLINICAL HISTORY: Abdomen distention COMPARISON STUDY: 11/16/2016 FINDINGS: There are multiple mildly dilated small bowel loops measuring up tor 45 mm in diameter. There is a nasogastric tube within the stomach. The inferior aspect of a pericardial drainage tube is visualized. There is gas present within the colon. There are postsurgical changes present within the right hip. IMPRESSION: Ileus pattern with slight progressive bowel dilatation. Interval placement of a nasogastric tube the tip of which projects over the gastric antrum [~ rep ct add3]] CT SCAN OF THE ABDOMEN AND PELVIS WITHOUT CONTRAST CLINICAL HISTORY: R/o obstruction, vomiting, abdominal distention COMPARISON STUDY: 11/15/2016 TECHNIQUE: CT scan of the abdomen and pelvis was performed from the lung bases to the proximal femurs. Images are reviewed in the axial, sagittal, and coronal planes. IV contrast was not administered for this examination. CT DOSE: 1098.14 mGycm FINDINGS: Lower chest: There is a persistent hemothorax. This appears slightly smaller. There is been interval insertion of a left-sided chest tube. A pericardial drain is again visualized. There is a dual-chamber central venous pacemaker. The ventricular lead is been repositioned and no longer perforates the heart. There is decreasing pneumomediastinum. There is a trace left-sided pneumothorax. There is a small right pleural effusion with right basilar atelectasis. Liver: The unenhanced liver is normal in size, contour, and attenuation. There is no intrahepatic biliary ductal dilatation. Gallbladder: Surgically absent Spleen: Normal in size and attenuation. Pancreas: Unremarkable. Adrenal glands: Unremarkable. Kidneys: The unenhanced kidneys are normal in size without hydronephrosis. There is no contour deforming renal mass lesion. No renal calculi are identified. Bowel: There is been interval insertion of a nasogastric tube. There are mildly dilated small bowel loops measuring up to 3 cm in diameter. There is gas present within the colon. The findings are felt to be secondary to an ileus. There is colonic diverticulosis. There are no findings to indicate acute appendicitis. There is fluid present within the left inguinal hernia sac. Peritoneum: There is a small amount of free pelvic fluid. No free air is visualized. Vasculature: There is no evidence of abdominal aortic aneurysm. There are right femoral venous and arterial catheters. There is a persistent hematoma surrounding the right femoral artery and vein. There are persistent air bubbles within hematoma again, likely echogenic. Adenopathy: None. Pelvic viscera: The uterus is surgically absent. There is indwelling Mercedes catheter. Skeletal structures: Postsurgical changes involve the right hip. IMPRESSION: 1. Interval placement of a left chest tube and nasogastric tube. 2. Interval repositioning of the patient's ventricular pacemaker lead 3. Decreasing left-sided hemothorax. 4. New small right pleural effusion with right basilar atelectasis 5. Ileus pattern 6. Small amount of free fluid in the pelvis 7. Fluid within a left inguinal hernia sac 8. Interval placement of a Mercedes catheter 9. Persistent hematoma surrounding the patient's right femoral venous and arterial catheters.
[2016-11-16] MEDS: CEFAZOLIN IV 2,000 MG in DEXTROSE 5% 50ML 50 ML IV SCH (19:59)
[2016-11-16] MEDS: PANTOprazole INJ 40 MG in SYRINGE 0 ML IV SCH (21:07)
[2016-11-16 22:57] LABS: HEMATOCRIT 35.7 % (37-47); MEAN CELL VOLUME 85.8 fL (80-100); MEAN CORPUSCULAR HEMOGLOBIN 28.8 pg (25-34); MEAN CORPUSCULAR HGB CONC 33.6 g/dl (32-36); MEAN PLATELET VOLUME 10.3 fL (7.4-10.4); PLATELET COUNT 107 K/uL (130-400); RED BLOOD COUNT 4.16 M/uL (4.2-5.4); WHITE BLOOD COUNT 16.56 K/uL (4.8-10.8)
[2016-11-17] VITALS (60 sets, daily range): BP systolic 80–129; BP diastolic 46–118; PULSE 96–159; TEMP 36.6–37.5; O2SAT 89–97
[2016-11-17] MEDS: NORMOSOL R 1,000 ML IV SCH ×4 (00:23→16:28)
[2016-11-17] MEDS: FENTANYL CITRATE INJ 50 MCG/1 ML 2 ML VIAL IV PRN ×5 (00:29→23:56)
[2016-11-17] MEDS ORDERED: NURSING VERBAL MED ORDER ONE ×2 (02:00→02:15)
--- NOTE | 2016-11-17 02:41 | OPERATIVE REPORT ---
DATE OF OPERATION: 11/16/2016 PROCEDURE PERFORMED: Repositioning of right ventricular pacing lead. STAFF HOSE TURNER: Ron Shah MD INDICATION: Mrs. Nadiya Villegas is a 71-year-old woman who has recently undergone implantation of dual-chamber permanent pacemaker. She was noted on routine evaluation to have had a malfunction and perforation of the right ventricular leads through the right ventricle. As such, she was advised to undergo lead revision today. PROCEDURE IN DETAIL: The patient was informed of the risks, benefits and alternatives to the intended procedure. She understood such and wished to proceed. She was taken to the electrophysiology suite in a fasting state and preoperative antibiotic had been administered. The patient was monitored electrocardiographically throughout today's procedure and conscious sedation was administered per protocol. The left pectoral area was prepped and draped in usual sterile fashion. This area was anesthetized using subcutaneous administration of Xylocaine and Marcaine solution. An incision was made, dissection carried down on previously implanted pulse generator using sharp dissection. Electrocautery was also employed for dissection as well as for hemostasis. Previously implanted pulse generator leads were then freed from the surrounding scar tissue. The right ventricular lead was detached from the pulse generator. The helix was retracted under fluoroscopy and using standard stylet technique, the lead was repositioned. Adequate sensing and threshold parameters were obtained prior to active fixation of these leads to the endocardial surface. The proximal portion of the leads was then secured to the prepectoral fascia using nonabsorbable suture. The lead was reattached to the pulse generator. Pocket was irrigated with antibiotic solution prior to the placement of leads and generator in the pocket. The pocket was subsequently closed in 3 layers of absorbable suture. Steri-Strips and sterile dressing were applied. The device was tested noninvasively prior to conclusion of the procedure. The patient tolerated the procedure well. There were no immediate complications. EQUIPMENTS USED: 1. 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 2. Retained right atrial lead, jewelry bench worker [employer], model #4076, serial #[id number]. 3. Retained right ventricular lead, jewelry bench worker [employer], model #4076, serial #[id number]. MEASURED DATA: 1. Right atrial lead, P-waves measured 3.1 millivolts, pacing threshold is 0.5 volts at 0.4 milliseconds with a pacing impedance of 456 ohms. 2. Left ventricular lead, R-waves measured 4.3 millivolts, pacing threshold is 0.75 volts at 0.4 milliseconds with a pacing impedance of 513 ohms. IMPRESSION: Successful repositioning of right ventricular pacing lead. PLAN: The patient will be sent back to the intensive care unit for additional monitoring and antibiotics. A chest x-ray will be obtained in the morning for detection of lead stability. I attest to the content of the Intraoperative Record and any orders documented therein. Any exceptio ns are noted below.
[2016-11-17] MEDS ORDERED: VANCOMYCIN INJ 1,000 MG in SODIUM CHLORIDE 0.9% 250ML 250 ML IV STA (04:11)
[2016-11-17] MEDS: CEFAZOLIN IV 2,000 MG in DEXTROSE 5% 50ML 50 ML IV SCH (04:26)
[2016-11-17] MEDS ORDERED: PIPERACILL/TAZOBAC IV 3.375 GM in DEXTROSE 5% 100ML IV STA (04:33)
[2016-11-17] MEDS ORDERED: VANCOMYCIN CONSULT ACTIVE PRN (04:45)
[2016-11-17] MEDS ORDERED: PIPERACILL/TAZOBAC CONSULT ACTIVE PRN (04:45)
[2016-11-17 04:48] LABS: CALCIUM 7.2 mg/dl (8.5-10.1); CREATININE 0.7 mg/dl (0.60-1.20); MAGNESIUM 2.2 mg/dl (1.8-2.4); POTASSIUM 4.1 mmol/L (3.5-5.1)
[2016-11-17 04:56] LABS: PHOSPHORUS 1.8 mg/dl (2.5-4.9)
[2016-11-17] MEDS ORDERED: VANCOMYCIN INJ 1,000 MG in SODIUM CHLORIDE 0.9% 250ML 250 ML IV SCH (05:00)
[2016-11-17] MEDS ORDERED: CEFAZOLIN IV 2,000 MG in DEXTROSE 5% 50ML 50 ML IV SCH (06:00)
[2016-11-17] MEDS ORDERED: CEFAZOLIN SOD 1000MG/55 ML D5W IV SCH (06:00)
[2016-11-17 06:47] LABS: ISTAT ALLEN TEST Pass; ISTAT ARTERIAL BLOOD GAS HCO3 21 meq/L (19-24); ISTAT ARTERIAL BLOOD GAS PCO2 37 mmHg (35-46); ISTAT ARTERIAL BLOOD GAS PO2 64 mmHg (80-95); ISTAT ARTERIAL BLOOD GAS pH 7.36 (7.35-7.45); ISTAT CARBON DIOXIDE 22 mEq/l (24-31); ISTAT DELIVERY SYSTEM Cannula; ISTAT SITE L Radial
[2016-11-17 07:16] LABS: HEMATOCRIT 34.7 % (37-47); MEAN CELL VOLUME 85.9 fL (80-100); MEAN CORPUSCULAR HEMOGLOBIN 28.5 pg (25-34); MEAN CORPUSCULAR HGB CONC 33.1 g/dl (32-36); MEAN PLATELET VOLUME 10.7 fL (7.4-10.4); PLATELET COUNT 114 K/uL (130-400); RED BLOOD COUNT 4.04 M/uL (4.2-5.4); WHITE BLOOD COUNT 16.24 K/uL (4.8-10.8)
[2016-11-17] MEDS: DOCUSATE SODIUM/SENNA 50/8.6MG TAB PO SCH (07:57)
[2016-11-17] MEDS: CALCIUM 600MG + VIT D 400 IU TAB PO SCH ×2 (07:57→20:31)
[2016-11-17] MEDS: CHOLECALCIFEROL 1000 INTER.UNIT TAB PO SCH (07:57)
[2016-11-17] MEDS: CEROVITE ADV FORMULA TAB PO SCH ×2 (07:57→20:31)
[2016-11-17] MEDS: RANITIDINE HCL 150 MG TAB PO SCH ×2 (07:58→20:31)
[2016-11-17] MEDS ORDERED: PIPERACILL/TAZOBAC IV 3.375 GM in DEXTROSE 5% 100ML IV SCH (08:00)
--- NOTE | 2016-11-17 08:00 | DIAGNOSTIC IMAGING REPORT ---
CHEST ONE VIEW PORTABLE HISTORY: Respiratory failure. COMPARISON: Chest 12/15/2016. FINDINGS: Left-sided chest tube is unchanged in position. Pericardial catheter is again noted. Nasogastric tube terminates below the diaphragm. The tip is not included on this study. Left-sided dual-chamber pacemaker. The left-sided pneumothorax has essentially resolved. Decrease in size in the small left pleural effusion. Left basilar densities suggestive of subsegmental atelectasis. The right lung remains clear. The heart is stable in size. IMPRESSION: 1. No change in position of the support lines/tubes. 2. Interval resolution of the left-sided pneumothorax. A small left pleural effusion has improved. 3. Left basilar linear densities favor atelectasis. Electronically signed by: Reece Alaniz M.D. 11/17/2016 7:57 AM Dictated Date/Time: 11/17/2016 7:56 AM
[2016-11-17] MEDS ORDERED: SODIUM PHOSPHATE 3 MMOL/1 ML INFUSION IV STA (08:05)
[2016-11-17] MEDS: PIPERACILL/TAZOBAC IV 4.5 GM in DEXTROSE 5% 100ML IV SCH ×3 (08:07→23:50)
[2016-11-17] MEDS: PANTOprazole INJ 40 MG in SYRINGE 0 ML IV SCH ×2 (08:07→21:00)
[2016-11-17] MEDS: IPRATROPIUM BROMIDE/ALBUTEROL respimat INH INH SCH ×4 (08:07→20:32)
[2016-11-17] MEDS ORDERED: MAGNESIUM SULFATE 1GM / D5W 1 GM in PREMIXED IN D5W 100 ML IV SCH (08:30)
[2016-11-17] MEDS ORDERED: CALCIUM CHLORIDE 10% 1,000 MG in SODIUM CHLORIDE 0.9% 50ML 50 ML IV ONE (08:30)
[2016-11-17] MEDS ORDERED: SODIUM PHOSPHATE INJ 15 MMOL in SODIUM CHLORIDE 0.9% 250ML 250 ML IV SCH (08:30)
--- NOTE | 2016-11-17 08:54 | Pharmacy Progress Note ---
Pharmacy Antibiotic Consult Date of Service: Nov 17, 2016. Pharmacy Dosing Scope Pharmacy is consulted to initiate vancomycin and piperacillin/tazobactam IV dosing therapy, order appropriate labs and adjust drug dose/frequency. Subjective The patient is a 71 year old female admitted on Nov 12, 2016 at 12:21. She has had a complex hospital stay that began with a syncopal episode prior to admission. Objective Height (Feet): 5 Height (Inches): 1.00 Weight (Kilograms): 90.000 Lab Results (24hrs): Laboratory Tests Test 11/16/16 10:24 11/16/16 15:56 11/16/16 22:50 11/17/16 04:20 White Blood Count 19.94 K/uL 18.58 K/uL 16.56 K/uL 16.24 K/uL BUN/Creatinine Ratio 18.0 Blood Urea Nitrogen 13 mg/dl Creatinine 0.70 mg/dl Micro Results: Item Value Date Time Lyme Disease IgM Antibody NEG 11/12/16 1319 Lyme Disease IgG Antibody NEG 11/12/16 1319 Item Value Date Time MRSA DNA Surveillance Screen - Final Complete 11/12/16 1300 Nasal Specimen Negative for MRSA by DNA Probe C.difficile Toxin B Gene (PCR) - Final Complete 11/13/16 0915 Stool No C. difficile toxin B gene detected Shiga Toxin Test - Final Complete 11/13/16 0915 Stool No E. Coli shiga toxin 1 or shiga tox... Blood Culture Received 11/17/16 0251 Blood Pending Blood Culture Received 11/17/16 0303 Blood Pending Assessment & Plan Assessment: * 71 y/o s/p pacemaker, pericardicentesis, chest tube and pacemaker repositioning. * Low-grade fever overnight (37.5) coupled with complicated hospital stay, h/o ortho surgery, etc Plan: * begin empiric antibiotics in the form of vancomycin and piperacillin/ tazobactam Vancomycin: * Loading dose: 2000 mg (~23mg/kg) IV X 1 dose * Maintenance dose: 1350 mg (~15mg/kg) IV every 14 hours * Estimated kinetics: T1/2 ~12-13 hours * may accumulate vancomycin based on body habitus * Goal trough level: 15 - 20 mcg/mL. Piperacillin/tazobactam: * Loading dose: 3.375g IV x1 dose over 30 minutes * Maintenance dose: 3.375g IV every 8 hours (infused over 4 hours) started * --> increase to 4.5g IV every 8 hours (infused over 4 hours) for BMI >35kg/ m2 as well as acuity of illness. * No dose adj for CrCl above 20mL/min Labs: * Vancomycin trough prior to the fourth maintenance dose on 11/19/16 * CBC on order already * Renal function to be monitored daily while vancomycin and pip/tazo started ( can both precipitate renal impairment Pharmacy will continue to follow and will adjust dose/frequency as necessary. Thank you
[2016-11-17] MEDS: NOREPINEPHRINE BIT INJ 8 MG in DEXTROSE 5% 500ML 500 ML IV PRN (09:08)
--- NOTE | 2016-11-17 09:28 | Critical Care Progress Note ---
Critical Care Progress Note Date of Service Nov 17, 2016. Attending Dr. Steele Subjective 71-year-old female with past medical history of hypertension and vertigo here after she experienced a syncopal attack at home after a bowel movement that had lasted for 15 minutes. She was noted to have a transient complete heart block with long pause. Syncopal episode thought to be secondary to transient complete heart block with a vasovagal component. 11/14 Had a dual chamber pacemaker placed but was found to have a pericardial effusion due in to perforation of the right ventricle secondary to placement of a pacemaker lead. 11/15 She had a pericardial drain along with right femoral sheath placed CT abdomen and pelvis revealed a left-sided moderate Haemothorax and the left- sided chest tube was placed 11/16 NG tube was placed for abdominal distension and coffee ground emesis Revision of pacemaker leads Today she complains of pain along her chest on the left side and that it hurts to take deep breaths. Denies any difficulty breathing , palpitations. She has not had a bowel movement since 11/07 and has not been passing gas the last few days. Denies any abdominal pain, has an NG tube in place. Developed a slight bump in temperature overnight Objective GENERAL: Patient is in no acute distress. HEENT: mucous membranes moist, no nasal congestion, no scleral icterus. NECK: No stridor, trachea is midline, NG tube in place LUNGS: decreased breath sounds on left, left sided chest tube HEART: Without murmurs gallops or rubs, tachycardic, pericardial drain ABDOMEN: Soft, distended EXTREMITIES: No cyanosis or edema, Right femoral sheath NEUROLOGIC: Oriented x 3, no acute motor or sensory deficits, no focal weakness. Current SOFA Score SOFA Score Response (Comments) Value PaO2/FiO2 (mmHg) < 300 2 Platelets (x10) < 150 1 Level of Hypotension MAP less than 70 1 Total 4 Assessment & Plan 71-year-old female with past medical history of hypertension and vertigo presented after a syncopal episode after having a bowel movement. EKG revealed a transient complete heart block. Status post dual-chamber pacemaker placed on11/14 and was found to have a pericardial effusion secondary to puncture of the right ventricular wall due to a lead from the pacemaker and had successful placement of pericardial drain. CT abdomen and pelvis revealed a left-sided moderate large hemothorax and a chest tube was placed to suction. She received a total of 4 units of PRBCs. Had an episode of coffee-ground emesis 1 day ago, started on Protonix and NG tube was placed today. She had a successful revision of her pacemaker leads yesterday After the procedure she was noted to have abdominal distention and a CT abdomen and pelvis was ordered after a flatplate revealed dilated loops of bowel. Abdominal distention somewhat better today though she still hasn't been passing gas or had a bowel movement. Developed a slight bump in her temperature last night to 37.5 Neurology - Alert, awake and oriented - History of vertigo: meclizine on hold due to NPO - Pain control with IV acetaminophen and fentanyl CVS: Pericardial effusion: s/p pericardial drain placement - Secondary to puncture of the right ventricular wall by ventricular lead of the pacemaker - Echo ordered - Might consider removal of the pericardial drain today based on echo findings - Transient complete heart block Status post dual-chamber pacemaker placement but ventricular lead in the ventricular wall causing pericardial effusion - Pacemaker lead revision Hypotension: - Currently on norepinephrine - weaning - Status post 3 PRBC transfusion Respiratory - Left-sided moderate hemothorax on CT Status post left chest tube placement to suction - 1150 ml of bloody drainage - Thoracic surgery consultation - might need VATS - RAD: Continue Combivent inhaler GI/FEN: Coffee-ground emesis: NPO - NG tube in place - 390 ml - Protonix IV push BID Dilated bowel loops on CT abdomen and pelvis - Gen. surgery consultation - NG tube decompression Renal - IV fluids: Normosol at 125 mls/hr - Electrolytes: Mg at 2.2 Phos at 1.8, Na Phos 15 mmol added Ca at 7.2, ionized calcium with afternoon labs- calcium chloride ordered ID: Slight bump in temperature - Remove femoral sheath after placement of central and arterial line -Zosyn and vancomycin added - DVT prophylaxis: SCDs Tubes/drains - Left-sided chest tube to suction - Pericardial drain - Femoral sheath with triple lumen catheter and arterial line will be removed today after a central line and arterial line placement. - Mercedes catheter - NG tube CODE STATUS - Level I full code Disposition - ICU Resident Physician Supervision Note: I was present with Dr. Angella David during the history and exam. I discussed the case with the resident and agree with the findings and plan as documented in the note. Any exceptions or clarifications are listed here: Pericardial stopped draining, now capped. Consider removal after echo review Will need to remove the groin arterial and venous sheaths, place new ones, probably IJ TLC and radial/axillary a-line. After sheaths have been removed, mobilize the patient, OOB to chair. Started empiric Abx last night for low grade fever. Maintain chest tube for now Critical care time spent excluding procedures, greater than 35 minutes Documented By: Mick Steele MD Consults & Procedures Consultants: Cardiology, thoracic surgery, general surgery Procedures: 11/14/16 - PPM 11/15/16 - Pericardiocentesis with pericardial drain 11/15/16 - Left chest tube 28 Fr 11/16/16- PPM revision Data Medications: Current Inpatient Medications Medications (Trade) Dose Ordered Sig/Barb Route Start Time Stop Time Status Last Admin Dose Admin Al Hydrox/Mg Hydrox/Simethicone (Maalox Max Susp) 15 ml Q4H PRN PO 11/12/16 12:15 12/12/16 12:14 Magnesium Hydroxide (Milk Of Magnesia Susp) 30 ml Q12H PRN PO 11/12/16 12:15 12/12/16 12:14 Ranitidine HCl (zANTac TAB) 150 mg BID PO 11/12/16 21:00 12/12/16 20:59 11/15/16 20:34 150 MG Calcium/Vitamin D (Caltrate Plus Tab) 1 tab BID PO 11/12/16 21:00 12/12/16 20:59 11/15/16 20:35 1 TAB Albuterol/ Ipratropium (Combivent Respimat Inh) 1 puffs QID INH 11/12/16 17:00 12/12/16 16:59 11/17/16 08:07 1 PUFFS Meclizine HCl (Antivert Tab) 25 mg TID PRN PO 11/12/16 16:30 12/12/16 16:29 Nitroglycerin (Nitrostat Tab) 0.4 mg PRN PRN UT 11/12/16 16:30 12/12/16 16:29 Multivitamins/ Minerals (Multivitamin W/ Minerals Tab) 1 tab BID PO 11/12/16 21:00 12/12/16 20:59 11/15/16 20:35 1 TAB Senna/Docusate Sodium (Senokot S Tab) 3 tab DAILY PO 11/13/16 09:00 12/13/16 08:59 11/14/16 14:12 3 TAB Tramadol HCl (Ultram Tab) 50 mg BID PRN PO 11/12/16 16:30 12/12/16 16:29 11/14/16 15:46 50 MG Cholecalciferol (Vitamin D Tab) 2,000 inter.unit DAILY PO 11/13/16 09:00 12/13/16 08:59 11/14/16 14:13 2,000 INTER.UNIT Acetaminophen (Tylenol Tab) 650 mg Q4H PRN PO 11/14/16 13:45 12/14/16 13:44 Oxycodone HCl (Roxicodone Immediate Rel Tab) 5 mg Q4 PRN PO 11/14/16 13:45 11/28/16 13:44 11/15/16 20:34 5 MG Ondansetron HCl 4 mg 4 mg Q4H PRN IV 11/14/16 15:30 12/14/16 15:29 11/16/16 07:48 4 MG Norepinephrine Bitartrate/ Dextrose (Levophed Inj/ D5W 500ml) 508 ml @ 0 mls/hr Q0M PRN IV 11/15/16 11:00 12/15/16 10:59 11/17/16 09:08 21 MLS/HR Ioversol (Optiray 320) 100 ml UD PRN IV 11/15/16 11:15 11/19/16 11:14 Fentanyl Citrate 50 mcg 50 mcg Q2H PRN IV 11/15/16 18:45 11/29/16 18:44 11/17/16 04:27 50 MCG Parenteral Electrolyte Solution 1,000 ml @ 125 mls/hr Q8H IV 11/16/16 08:15 12/16/16 08:14 11/17/16 00:23 125 MLS/HR Acetaminophen 100 ml @ 400 mls/hr Q8H PRN IV 11/16/16 08:15 12/16/16 08:14 11/16/16 13:10 400 MLS/HR Pantoprazole Sodium/Syringe (Protonix Inj/ Syringe) 10 ml @ 5 mls/min DAILY@09,21 IV 11/16/16 21:00 12/16/16 20:59 11/17/16 08:07 5 MLS/MIN Vancomycin HCl (Consult) 1 ea UD PRN N/A 11/17/16 04:45 12/17/16 04:44 Piperacillin Sod/ Tazobactam Sod 1 ea 1 ea UD PRN N/A 11/17/16 04:45 12/17/16 04:44 Piperacillin Sod/ Tazobactam Sod 4.5 gm/Dextrose 120 ml @ 30 mls/hr Q8H IV 11/17/16 08:00 11/19/16 07:59 11/17/16 08:07 30 MLS/HR Sodium Phosphate 15 mmol/Sodium Chloride 255 ml @ 127.5 mls/ hr TODAY@0830 IV 11/17/16 08:30 11/17/16 10:29 11/17/16 08:35 127.5 MLS/HR Vancomycin HCl/ Sodium Chloride (Vancomycin Inj/ Nss 250ml) 277 ml @ 125 mls/hr Q14H IV 11/17/16 20:00 11/19/16 19:59 I & O: 24-Hour Column 11/17/16 07:59 Intake Total 3581 ml Output Total 1605 ml Balance 1976 ml Vital Signs: Date Time Temp Pulse Resp B/P Pulse Ox O2 Delivery O2 Flow Rate FiO2 11/17/16 08:00 94 Nasal Cannula 5.0 11/17/16 07:40 37.0 110 24 128/106 93 Nasal Cannula 5.0 102/57 11/17/16 06:45 110 26 125/67 89 11/17/16 06:40 106 22 99/61 92 11/17/16 06:30 109 24 118/75 92 11/17/16 06:20 107 20 98/89 92 11/17/16 06:15 108 27 115/65 92 11/17/16 06:00 37.3 110 21 101/74 93 Nasal Cannula 5.0 11/17/16 05:45 112 21 102/78 93 11/17/16 05:30 108 23 116/70 95 11/17/16 05:15 105 22 117/65 90 11/17/16 05:00 37.4 108 23 129/95 89 Nasal Cannula 5.0 11/17/16 04:45 111 28 119/80 92 11/17/16 04:30 110 16 105/60 94 11/17/16 04:15 115 21 101/63 93 11/17/16 04:00 37.5 116 22 102/62 93 Nasal Cannula 5.0 11/17/16 04:00 94 Nasal Cannula 5.0 11/17/16 03:50 114 26 100/60 92 11/17/16 03:45 111 18 96/58 94 11/17/16 03:30 111 24 104/59 93 11/17/16 03:15 110 23 100/55 91 11/17/16 03:00 109 23 116/73 92 11/17/16 02:30 114 24 101/64 92 11/17/16 02:00 37.4 112 20 99/62 92 Nasal Cannula 5.0 11/17/16 01:30 112 20 105/58 93 11/17/16 01:00 116 19 92/59 92 11/17/16 00:30 119 27 103/56 92 11/17/16 00:15 116 21 92/58 92 11/17/16 00:00 37.4 117 22 102/59 92 11/17/16 00:00 92 Nasal Cannula 5.0 11/16/16 23:45 119 25 92/59 91 11/16/16 23:30 117 23 101/62 92 11/16/16 23:15 120 23 90/57 90 11/16/16 23:00 116 22 98/60 91 Nasal Cannula 5.0 11/16/16 22:45 116 24 95/56 92 11/16/16 22:30 117 20 94/60 92 11/16/16 22:20 114 22 105/73 92 11/16/16 22:15 114 21 99/65 91 11/16/16 22:00 37.2 112 20 93/58 94 Nasal Cannula 5.0 11/16/16 21:15 116 22 106/54 88 11/16/16 21:00 109 25 92/70 89 11/16/16 20:45 109 22 114/58 90 11/16/16 20:30 112 27 94/86 89 11/16/16 20:20 111 25 102/61 91 11/16/16 20:00 36.8 106 33 94/81 89 Nasal Cannula 5.0 11/16/16 20:00 90 Nasal Cannula 5.0 11/16/16 19:45 110 23 99/52 90 11/16/16 19:30 112 19 102/53 91 11/16/16 19:20 112 26 102/51 92 11/16/16 19:15 111 18 97/51 89 11/16/16 19:00 105 22 96/60 90 Nasal Cannula 5.0 11/16/16 18:10 98 33 130/68 91 11/16/16 18:00 102 29 102/61 90 11/16/16 16:00 36.7 94 20 106/59 92 Nasal Cannula 5.0 90/56 11/16/16 16:00 92 Nasal Cannula 5.0 11/16/16 14:00 98 22 95/50 90 Nasal Cannula 5.0 11/16/16 13:48 97 20 94/58 90 88/49 11/16/16 13:30 104 19 79/58 89 77/56 11/16/16 13:16 37.1 100 20 106/70 90 Nasal Cannula 5.0 11/16/16 13:00 105 18 96/62 85 Room Air 11/16/16 12:00 90 Nasal Cannula 5.0 11/16/16 10:00 109 29 102/54 91 Laboratory Results: Last 24 Hours Test 11/16/16 10:24 11/16/16 15:56 11/16/16 22:50 11/17/16 04:20 White Blood Count 19.94 K/uL 18.58 K/uL 16.56 K/uL 16.24 K/uL Red Blood Count 4.64 M/uL 4.40 M/uL 4.16 M/uL 4.04 M/uL Hemoglobin 13.4 g/dL 12.6 g/dL 12.0 g/dL 11.5 g/dL Hematocrit 39.7 % 37.4 % 35.7 % 34.7 % Mean Corpuscular Volume 85.6 fL 85.0 fL 85.8 fL 85.9 fL Mean Corpuscular Hemoglobin 28.9 pg 28.6 pg 28.8 pg 28.5 pg Mean Corpuscular Hemoglobin Concent 33.8 g/dl 33.7 g/dl 33.6 g/dl 33.1 g/dl RDW Standard Deviation 48.3 fL 47.9 fL 48.7 fL 49.7 fL RDW Coefficient of Variation 15.4 % 15.4 % 15.6 % 15.7 % Platelet Count 113 K/uL 113 K/uL 107 K/uL 114 K/uL Mean Platelet Volume 10.3 fL 10.2 fL 10.3 fL 10.7 fL Sodium Level 140 mmol/L Potassium Level 4.1 mmol/L Chloride Level 107 mmol/L Carbon Dioxide Level 25 mmol/L Anion Gap 8.0 mmol/L Blood Urea Nitrogen 13 mg/dl Creatinine 0.70 mg/dl Est Creatinine Clear Calc Drug Dose 75.6 ml/min Estimated GFR () 101.7 Estimated GFR (Non- 87.8 BUN/Creatinine Ratio 18.0 Random Glucose 129 mg/dl Lactic Acid Level 1.0 mmol/L Calcium Level 7.2 mg/dl Phosphorus Level 1.8 mg/dl Magnesium Level 2.2 mg/dl Total Bilirubin 0.8 mg/dl Direct Bilirubin 0.2 mg/dl Aspartate Amino Transf (AST/SGOT) 26 U/L Alanine Aminotransferase (ALT/SGPT) 13 U/L Alkaline Phosphatase 62 U/L Total Protein 5.4 gm/dl Albumin 2.3 gm/dl Test 11/17/16 06:34 Blood Gas Sample Site L Radial Bedside Blood Gas pH (LAB) 7.36 Bedside Blood Gas pCO2 (LAB) 37 mmHg Bedside Blood Gas pO2 (LAB) 64 mmHg Bedside Blood Gas HCO3 (LAB) 21 meq/L Bedside Blood Gas Total CO2 22 mEq/l Bedside Blood Gas Base Excess (LAB) -5.0 meq/L Bedside Blood Gas O2 Saturation 91.0 % Claudio Test Pass Oxygen Delivery Device Cannula [~ rep ct add3]] CHEST ONE VIEW PORTABLE HISTORY: Respiratory failure. COMPARISON: Chest 12/15/2016. FINDINGS: Left-sided chest tube is unchanged in position. Pericardial catheter is again noted. Nasogastric tube terminates below the diaphragm. The tip is not included on this study. Left-sided dual-chamber pacemaker. The left-sided pneumothorax has essentially resolved. Decrease in size in the small left pleural effusion. Left basilar densities suggestive of subsegmental atelectasis. The right lung remains clear. The heart is stable in size. IMPRESSION: 1. No change in position of the support lines/tubes. 2. Interval resolution of the left-sided pneumothorax. A small left pleural effusion has improved. 3. Left basilar linear densities favor atelectasis.
--- NOTE | 2016-11-17 10:32 | Surgery Progress Note ---
Subjective Date of Service: Nov 17, 2016. Pt. resting in bed. Does not appear to be in distress. Discussed with ICU staff--pt. continues to have drainage from pericardial drain as well as chest tube. In addition she has ileus. Objective Vitals Date Time Temp Pulse Resp B/P Pulse Ox O2 Delivery O2 Flow Rate FiO2 11/17/16 10:00 107 21 110/63 94 Nasal Cannula 5.0 87/78 11/17/16 08:00 94 Nasal Cannula 5.0 11/17/16 07:40 37.0 110 24 128/106 93 Nasal Cannula 5.0 102/57 11/17/16 06:45 110 26 125/67 89 11/17/16 06:40 106 22 99/61 92 11/17/16 06:30 109 24 118/75 92 11/17/16 06:20 107 20 98/89 92 11/17/16 06:15 108 27 115/65 92 11/17/16 06:00 37.3 110 21 101/74 93 Nasal Cannula 5.0 11/17/16 05:45 112 21 102/78 93 11/17/16 05:30 108 23 116/70 95 11/17/16 05:15 105 22 117/65 90 11/17/16 05:00 37.4 108 23 129/95 89 Nasal Cannula 5.0 11/17/16 04:45 111 28 119/80 92 11/17/16 04:30 110 16 105/60 94 11/17/16 04:15 115 21 101/63 93 11/17/16 04:00 37.5 116 22 102/62 93 Nasal Cannula 5.0 11/17/16 04:00 94 Nasal Cannula 5.0 11/17/16 03:50 114 26 100/60 92 11/17/16 03:45 111 18 96/58 94 11/17/16 03:30 111 24 104/59 93 11/17/16 03:15 110 23 100/55 91 11/17/16 03:00 109 23 116/73 92 11/17/16 02:30 114 24 101/64 92 11/17/16 02:00 37.4 112 20 99/62 92 Nasal Cannula 5.0 11/17/16 01:30 112 20 105/58 93 11/17/16 01:00 116 19 92/59 92 11/17/16 00:30 119 27 103/56 92 11/17/16 00:15 116 21 92/58 92 11/17/16 00:00 37.4 117 22 102/59 92 11/17/16 00:00 92 Nasal Cannula 5.0 11/16/16 23:45 119 25 92/59 91 11/16/16 23:30 117 23 101/62 92 11/16/16 23:15 120 23 90/57 90 11/16/16 23:00 116 22 98/60 91 Nasal Cannula 5.0 11/16/16 22:45 116 24 95/56 92 11/16/16 22:30 117 20 94/60 92 11/16/16 22:20 114 22 105/73 92 11/16/16 22:15 114 21 99/65 91 11/16/16 22:00 37.2 112 20 93/58 94 Nasal Cannula 5.0 11/16/16 21:15 116 22 106/54 88 11/16/16 21:00 109 25 92/70 89 11/16/16 20:45 109 22 114/58 90 11/16/16 20:30 112 27 94/86 89 11/16/16 20:20 111 25 102/61 91 11/16/16 20:00 36.8 106 33 94/81 89 Nasal Cannula 5.0 11/16/16 20:00 90 Nasal Cannula 5.0 11/16/16 19:45 110 23 99/52 90 11/16/16 19:30 112 19 102/53 91 11/16/16 19:20 112 26 102/51 92 11/16/16 19:15 111 18 97/51 89 11/16/16 19:00 105 22 96/60 90 Nasal Cannula 5.0 11/16/16 18:10 98 33 130/68 91 11/16/16 18:00 102 29 102/61 90 11/16/16 16:00 36.7 94 20 106/59 92 Nasal Cannula 5.0 90/56 11/16/16 16:00 92 Nasal Cannula 5.0 11/16/16 14:00 98 22 95/50 90 Nasal Cannula 5.0 11/16/16 13:48 97 20 94/58 90 88/49 11/16/16 13:30 104 19 79/58 89 77/56 11/16/16 13:16 37.1 100 20 106/70 90 Nasal Cannula 5.0 11/16/16 13:00 105 18 96/62 85 Room Air 11/16/16 12:00 90 Nasal Cannula 5.0 Radiology CXR today shows some improvement of left pleural effusion Drains / Tubes chest tube (left sided--210 cc lasat 24 hours; 100 cc last shift), other ( pericardial 100 cc last 24 hours; 25 cc last shift) Assessment & Plan 71 year old female with right ventricular perforation following PPM -cardiac tamponade resolved with pericardial drain -left hemothorax: -continue CT drainage -if pleural effusion persists, will consider TPA placement in chest tube -PPM lead repositioned on 11/16/16
--- NOTE | 2016-11-17 10:51 | CARDIOLOGY PROGRESS NOTE ---
DATE: 11/17/2016 This morning Mrs. Villegas continues to have symptoms of chest discomfort that involves both the precordium and the left chest. This is worse with deep inspiration or movement. She also has some sense of abdominal bloating. Nausea seems to be improved. PHYSICAL EXAMINATION: GENERAL: She was alert and oriented. Mood and affect appeared appropriate. She answered all questions. VITAL SIGNS: Included blood pressure of 110/63 with a pulse of 107. LUNGS: Auscultation of her lung apices revealed somewhat decreased breath sounds in the left base and occasional crackles. She also had poor air movement in general. CARDIAC: Revealed her to be in a regular rhythm. I did not appreciate any rubs on examination today. Evaluation of the left pacemaker pocket revealed some ecchymosis, but no evidence erythema or hematoma. LABORATORY STUDIES: Obtained today included a white cell count of 16.2, hemoglobin of 11.5, platelet count of 114. Chemistry profile included sodium 140, potassium of 4.1, BUN was 13, creatinine was 0.7. Single view chest x-ray was obtained this morning which revealed persistent changes in the left chest but resolution of her pneumothorax. Pacing leads appeared stable compared to her implant yesterday. Pericardial drain remains in place. ASSESSMENT AND PLAN: 1. Complete heart block. The patient's presentation involved syncope in the setting of complete heart block. She underwent pacemaker implantation with perforation of the right ventricle complicating the procedure. She underwent repositioning of right ventricular lead yesterday, which appears to be functioning normally and stable at this time. 2. Cardiac perforation. There does not appear to be much output from the pericardial drain currently, now that the lead has been repositioned we will direct some effort to removing the pericardial drain. We will monitor any output obtained this morning and re-echo her in order to exclude the presence of a persistent effusion prior to removal hopefully this afternoon. 3. Left hemothorax. The overall drainage from the left chest appears to be slowing down. There is still some evidence of bleeding at that site. Pneumothorax appears to be resolved. Hemoglobin appears to be stable currently. She is still requiring some pressor support and is tachycardic. We will defer management of the chest tube to the thoracic surgery service. 4. Fever. The patient had a low-grade temperature last evening and has been started on antibiotics. Cultures were drawn. Multiple possible etiologies for an infection given her invasive lines and tubes. I do not believe that the pacemaker pocket is currently infected. I would agree with continued antibiotics, especially given the recent placement of her pacemaker. Overall, her condition continues to be serious in nature. My hope is that with removal of the pericardial drain, she will have some improvement in her chest pain. Hopefully, her chest tube output will also decrease and she will not require any additional fluid or blood resuscitation. HIRAM
--- NOTE | 2016-11-17 11:32 | ECHOCARDIOGRAM REPORT ---
*NOTICE TO RECEIVING [employer] This information is strictly Confidential and protected under [place] law. [place] law prohibits you from making any further disclosure of this information unless further disclosure is expressly permitted by the written consent of the person to whom it pertains or is authorized by law. A general authorization for the release of medical or other information is not sufficient for this purpose. Hospital accepts no responsibility if the information is made available to any other person, INCLUDING THE PATIENT. Interpretation Summary * Name: MOR BARRIGA Study Date: 11/17/2016 08:24 AM BP: 102/57 mmHg * Patient Location: [facility] HR: 110 * : 1945 (M/d/yyyy) Gender: Female Height: 61 in * Age: 71 yrs Ethnicity: [place] Weight: 198 lb * Ordering Physician: Christopher. Shah MD * Performed By: Arabella Del Castillo * * Reason For Study: EVALUATE PERICARDIAL EFFUSION * BSA: 1.9 m2 * -- Conclusions -- * Left ventricular systolic function is normal. * Small pericardial effusion. Procedure Details * The study was technically difficult. * There were technical limitations due to patient'spoor positioning Left Ventricle * Left ventricular systolic function is normal. Pericardium/Pleural * Small pericardial effusion.
[2016-11-17] MEDS ORDERED: AMIODARONE IV BOLUS / DRIP IV STA (13:24)
--- NOTE | 2016-11-17 13:39 | DIAGNOSTIC IMAGING REPORT ---
CHEST ONE VIEW PORTABLE CLINICAL HISTORY: RIJ central line placement COMPARISON STUDY: Chest radiograph November 17, 2016 6:56 AM. FINDINGS: There has been interval placement of a right internal jugular central line. The catheter tip projects over the right atrium. There is no pneumothorax. A left chest tube remains in place. A left pleural effusion with left basilar opacity persists. There is left lower lobe volume loss. There may also be right lower lobe volume loss. Cardiomegaly is unchanged. There is no radiographic evidence of pulmonary edema. The tip of the nasogastric tube is below the lower aspect of this image but at least within the proximal body of the stomach. A dual lead left pacemaker. IMPRESSION: 1. No pneumothorax following placement of right internal jugular central line. Catheter tip projects over right atrium. 2. Otherwise, unchanged appearance of the chest, as described above. Electronically signed by: Doug Schuler M.D. 11/17/2016 1:36 PM Dictated Date/Time: 11/17/2016 1:34 PM
[2016-11-17] MEDS ORDERED: AMIODARONE / D5W 100 ML IV SCH (13:45)
[2016-11-17] MEDS ORDERED: AMIODARONE / D5W 200 ML IV SCH (14:00)
[2016-11-17 15:13] LABS: HEMATOCRIT 33.3 % (37-47); MEAN CELL VOLUME 86.5 fL (80-100); MEAN CORPUSCULAR HEMOGLOBIN 28.8 pg (25-34); MEAN CORPUSCULAR HGB CONC 33.3 g/dl (32-36); PLATELET COUNT 116 K/uL (130-400); RED BLOOD COUNT 3.85 M/uL (4.2-5.4); WHITE BLOOD COUNT 13.92 K/uL (4.8-10.8)
[2016-11-17 15:33] LABS: BUN/CREATININE RATIO 16.3 (10-20); CALCIUM 7.6 mg/dl (8.5-10.1); CREATININE 0.64 mg/dl (0.60-1.20); MAGNESIUM 2.2 mg/dl (1.8-2.4); POTASSIUM 3.8 mmol/L (3.5-5.1)
[2016-11-17 15:36] LABS: ALB/GLOB RATIO 0.7 (0.9-2); PHOSPHORUS 1.9 mg/dl (2.5-4.9)
--- NOTE | 2016-11-17 16:52 | Progress Note ---
Subjective Date of Service: Nov 16, 2016. Subjective Pt evaluation today including: conversation w/ patient, physical exam, lab review, review of studies, conversation w/ market research consultant, review of inpatient medication list Pain: abdominal pain, better PO Intake: NPO Voiding: rodriguez catheter in place abdominal pain - CT showing small bowel obstruction NGT placed, feels better appreciate general surgery consult, just continue NGT appreciate CT surgery consult, will likely require VATS, may need pericardial window no plans for surgery currently Problem List Medical Problems: (1) Asthma, Unspecified Status: Chronic (2) Esophageal Reflux Status: Chronic (3) Hypertension Nos Status: Chronic (4) Lumb/Lumbosac Disc Degen Status: Chronic (5) Macular Degeneration Nos Status: Chronic (6) Osteoporosis Nos Status: Chronic (7) Syncope Status: Acute (8) Vertigo Status: Chronic Review of Systems Constitutional: + fatigue, + weakness Respiratory: + shortness of breath Cardiac: + chest pain Abdomen: + nausea, + pain All Other Systems: Reviewed and Negative Medications Current Inpatient Medications Medications (Trade) Dose Ordered Sig/Barb Route Start Time Stop Time Status Last Admin Dose Admin Al Hydrox/Mg Hydrox/Simethicone (Maalox Max Susp) 15 ml Q4H PRN PO 11/12/16 12:15 12/12/16 12:14 Magnesium Hydroxide (Milk Of Magnesia Susp) 30 ml Q12H PRN PO 11/12/16 12:15 12/12/16 12:14 Ranitidine HCl (zANTac TAB) 150 mg BID PO 11/12/16 21:00 12/12/16 20:59 11/15/16 20:34 150 MG Calcium/Vitamin D (Caltrate Plus Tab) 1 tab BID PO 11/12/16 21:00 12/12/16 20:59 11/15/16 20:35 1 TAB Albuterol/ Ipratropium (Combivent Respimat Inh) 1 puffs QID INH 11/12/16 17:00 12/12/16 16:59 11/16/16 12:58 1 PUFFS Meclizine HCl (Antivert Tab) 25 mg TID PRN PO 11/12/16 16:30 12/12/16 16:29 Nitroglycerin (Nitrostat Tab) 0.4 mg PRN PRN UT 11/12/16 16:30 12/12/16 16:29 Multivitamins/ Minerals (Multivitamin W/ Minerals Tab) 1 tab BID PO 11/12/16 21:00 12/12/16 20:59 11/15/16 20:35 1 TAB Senna/Docusate Sodium (Senokot S Tab) 3 tab DAILY PO 11/13/16 09:00 12/13/16 08:59 11/14/16 14:12 3 TAB Tramadol HCl (Ultram Tab) 50 mg BID PRN PO 11/12/16 16:30 12/12/16 16:29 11/14/16 15:46 50 MG Cholecalciferol (Vitamin D Tab) 2,000 inter.unit DAILY PO 11/13/16 09:00 12/13/16 08:59 11/14/16 14:13 2,000 INTER.UNIT Acetaminophen (Tylenol Tab) 650 mg Q4H PRN PO 11/14/16 13:45 12/14/16 13:44 Oxycodone HCl (Roxicodone Immediate Rel Tab) 5 mg Q4 PRN PO 11/14/16 13:45 11/28/16 13:44 11/15/16 20:34 5 MG Ondansetron HCl 4 mg 4 mg Q4H PRN IV 11/14/16 15:30 12/14/16 15:29 11/16/16 07:48 4 MG Norepinephrine Bitartrate/ Dextrose (Levophed Inj/ D5W 500ml) 508 ml @ 0 mls/hr Q0M PRN IV 11/15/16 11:00 12/15/16 10:59 11/16/16 09:02 15 MLS/HR Ioversol (Optiray 320) 100 ml UD PRN IV 11/15/16 11:15 11/19/16 11:14 Fentanyl Citrate 50 mcg 50 mcg Q2H PRN IV 11/15/16 18:45 11/29/16 18:44 11/16/16 16:03 50 MCG Pantoprazole Sodium 40 mg/ Dextrose 100 ml @ 20 mls/hr Q5H IV 11/16/16 01:45 12/16/16 01:44 11/16/16 12:58 20 MLS/HR Parenteral Electrolyte Solution 1,000 ml @ 75 mls/hr [id number] IV 11/16/16 08:15 5/5/17 08:14 11/16/16 08:51 75 MLS/HR Acetaminophen 100 ml @ 400 mls/hr Q8H PRN IV 11/16/16 08:15 12/16/16 08:14 11/16/16 13:10 400 MLS/HR Cefazolin Sodium 2000 mg/Dextrose 60 ml @ 120 mls/hr PREOP IV 11/17/16 06:00 11/17/16 06:29 Cefazolin Sodium/ Dextrose (Ancef Iv/D5 50ml) 60 ml @ 100 mls/hr Q8H IV 11/16/16 20:00 11/17/16 12:35 Objective Vital Signs Date Time Temp Pulse Resp B/P Pulse Ox O2 Delivery O2 Flow Rate FiO2 11/16/16 14:00 98 22 95/50 90 Nasal Cannula 5.0 11/16/16 13:48 97 20 94/58 90 88/49 11/16/16 13:30 104 19 79/58 89 77/56 11/16/16 13:16 37.1 100 20 106/70 90 Nasal Cannula 5.0 11/16/16 13:00 105 18 96/62 85 Room Air 11/16/16 12:00 90 Nasal Cannula 5.0 11/16/16 10:00 109 29 102/54 91 11/16/16 08:00 37.1 105 21 98/61 90 Nasal Cannula 4.0 126/70 11/16/16 08:00 Nasal Cannula 11/16/16 08:00 91 Nasal Cannula 4.0 11/16/16 07:55 110 19 126/70 90 11/16/16 05:30 101 21 142/79 91 11/16/16 05:00 106 27 116/72 90 11/16/16 04:30 105 29 96/75 91 11/16/16 04:00 104 25 99/80 93 11/16/16 04:00 91 Nasal Cannula 3.0 11/16/16 03:45 98 25 103/79 91 11/16/16 03:30 36.5 95 28 112/82 92 11/16/16 03:15 96 26 114/76 93 11/16/16 03:00 94 24 130/72 92 11/16/16 02:16 99 30 149/78 92 11/16/16 02:00 98 30 106/75 92 11/16/16 01:30 95 18 93/75 95 11/16/16 01:00 102 23 90/74 92 11/16/16 00:16 103 26 93/78 91 11/16/16 00:00 36.4 98 26 138/89 91 11/16/16 00:00 91 Nasal Cannula 3.0 11/15/16 23:45 98 22 156/91 92 11/15/16 23:30 97 11 158/86 91 11/15/16 23:15 107 31 123/87 91 11/15/16 23:00 96 26 87/77 91 11/15/16 22:57 36.1 99 22 132/74 90 11/15/16 22:30 36.3 99 23 115/73 91 11/15/16 22:00 101 23 102/69 93 11/15/16 22:00 36.0 101 23 106/75 93 11/15/16 21:45 104 22 89/70 94 11/15/16 21:37 36.0 100 22 100/71 93 11/15/16 21:30 102 20 101/59 92 11/15/16 21:21 36.8 108 22 107/69 91 11/15/16 21:15 105 24 97/58 93 11/15/16 21:09 36.4 103 22 104/70 92 11/15/16 21:00 36.5 102 16 96/61 95 11/15/16 20:41 36.5 105 20 97/62 92 11/15/16 20:15 36.3 103 21 106/63 93 11/15/16 20:00 106 21 106/85 94 11/15/16 20:00 93 Nasal Cannula 3.0 11/15/16 19:45 105 9 112/70 93 11/15/16 19:45 36.6 104 15 112/70 93 11/15/16 19:30 104 12 119/68 93 11/15/16 19:15 107 13 122/73 92 11/15/16 19:15 108 16 122/73 92 11/15/16 19:05 36.8 105 15 129/87 93 11/15/16 19:00 102 26 108/97 94 11/15/16 18:53 37.0 104 20 135/69 96 11/15/16 18:09 37.1 107 22 84/75 95 Room Air 4.0 150/99 11/15/16 18:01 103 23 150/99 96 95/84 11/15/16 18:00 105 27 96 96/83 11/15/16 17:45 105 27 90 108/80 11/15/16 17:30 102 25 124/78 95 103/78 11/15/16 17:26 37.1 99 22 104/79 95 4.0 11/15/16 17:15 98 24 97 106/81 11/15/16 17:00 99 27 121/83 98 122/81 11/15/16 16:55 99 27 130/74 97 105/83 11/15/16 16:45 99 23 97 92/76 11/15/16 16:30 101 26 132/87 97 97/79 Physical Exam General Appearance: WD/WN, no apparent distress Eyes: normal inspection, EOMI, sclerae normal Neck: supple, no adenopathy, no JVD, trachea midline Respiratory/Chest: chest non-tender, no respiratory distress, no accessory muscle use, + decreased breath sounds, + pertinent finding (left chest tube) Cardiovascular: regular rate, rhythm, no edema, no gallop, no JVD, no murmur Abdomen: soft, + abnormal bowel sounds, + tenderness Extremities: normal range of motion, non-tender, normal inspection, no pedal edema, no calf tenderness Neurologic/Psychiatric: pilates coordinator II-XII nml as tested, no motor/sensory deficits, alert, normal mood/affect, oriented x 3 Skin: normal color, warm/dry, no rash Laboratory Results Last 24 Hours Test 11/15/16 17:50 11/15/16 23:30 11/16/16 00:22 11/16/16 04:55 White Blood Count 21.02 K/uL 17.85 K/uL 20.04 K/uL Red Blood Count 4.53 M/uL 4.89 M/uL 4.84 M/uL Hemoglobin 12.9 g/dL 14.0 g/dL 13.8 g/dL Hematocrit 39.3 % 41.0 % 41.3 % Mean Corpuscular Volume 86.8 fL 83.8 fL 85.3 fL Mean Corpuscular Hemoglobin 28.5 pg 28.6 pg 28.5 pg Mean Corpuscular Hemoglobin Concent 32.8 g/dl 34.1 g/dl 33.4 g/dl RDW Standard Deviation 48.4 fL 45.8 fL 46.7 fL RDW Coefficient of Variation 15.1 % 15.0 % 15.2 % Platelet Count 189 K/uL 133 K/uL 118 K/uL Mean Platelet Volume 10.0 fL 9.9 fL 10.3 fL Bedside Glucose 156 mg/dl Gastric Fluid pH 5-7 Gastric Fluid Occult Blood POS Sodium Level 139 mmol/L Potassium Level 3.9 mmol/L Chloride Level 107 mmol/L Carbon Dioxide Level 23 mmol/L Anion Gap 9.0 mmol/L Blood Urea Nitrogen 14 mg/dl Creatinine 0.84 mg/dl Est Creatinine Clear Calc Drug Dose 59.9 ml/min Estimated GFR () 81.6 Estimated GFR (Non- 70.4 BUN/Creatinine Ratio 16.4 Random Glucose 164 mg/dl Calcium Level 8.5 mg/dl Phosphorus Level 3.5 mg/dl Magnesium Level 1.6 mg/dl Total Bilirubin 0.6 mg/dl Direct Bilirubin 0.2 mg/dl Aspartate Amino Transf (AST/SGOT) 45 U/L Alanine Aminotransferase (ALT/SGPT) 17 U/L Alkaline Phosphatase 69 U/L Total Protein 6.0 gm/dl Albumin 2.9 gm/dl Test 11/16/16 08:32 11/16/16 10:24 11/16/16 15:56 Blood Gas Sample Site Art Line Bedside Blood Gas pH (LAB) 7.41 Bedside Blood Gas pCO2 (LAB) 36 mmHg Bedside Blood Gas pO2 (LAB) 64 mmHg Bedside Blood Gas HCO3 (LAB) 23 meq/L Bedside Blood Gas Total CO2 24 mEq/l Bedside Blood Gas Base Excess (LAB) -2.0 meq/L Bedside Blood Gas O2 Saturation 92.0 % Claudio Test NA Oxygen Delivery Device Cannula White Blood Count 19.94 K/uL 18.58 K/uL Red Blood Count 4.64 M/uL 4.40 M/uL Hemoglobin 13.4 g/dL 12.6 g/dL Hematocrit 39.7 % 37.4 % Mean Corpuscular Volume 85.6 fL 85.0 fL Mean Corpuscular Hemoglobin 28.9 pg 28.6 pg Mean Corpuscular Hemoglobin Concent 33.8 g/dl 33.7 g/dl RDW Standard Deviation 48.3 fL 47.9 fL RDW Coefficient of Variation 15.4 % 15.4 % Platelet Count 113 K/uL 113 K/uL Mean Platelet Volume 10.3 fL 10.2 fL Assessment and Plan 71 yo female with PMH of HTN, GERD and vertigo. presented with syncope (also happened about 2 years ago) 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 - Syncope: suspected to be due to 3rd degree heart block seen transiently on telemetry returned to sinus rhythm, did not require transcutaneous pacing dual chamber pacemaker implanted on 11/14 complicated by tamponade, right effusion with blood today s/p pericardial drain, left sided chest tube defer to ICU and cardiology notes for full details echo: EF 65-70%, grade I diastolic dysfunction - Hypotension due to tamponade: dobutamine, BP improved after chest tube - Left hemothorax: continue chest tube - Cardiac tamponade: resolved with drain, management per icu and cardiology - SBO/ileus: NGT tube, appreciate surgery consult plan: keep in ICU, thoracic surgery consult Continued [facility] stay due to: other Discharge planning: home
[2016-11-17] MEDS ORDERED: POTASSIUM PHOS 3 MMOL/1 ML INFUSION IV STA (18:20)
[2016-11-17] MEDS ORDERED: POTASSIUM PHOSPHATE INJ 15 MMOL in SODIUM CHLORIDE 0.9% 250ML 250 ML IV SCH (18:45)
[2016-11-17] MEDS: VANCOMYCIN INJ 1,350 MG in SODIUM CHLORIDE 0.9% 250ML 250 ML IV SCH (20:00)
[2016-11-17] MEDS: AMIODARONE / D5W 200 ML IV SCH (20:13)
[2016-11-18] VITALS (30 sets, daily range): BP systolic 75–130; BP diastolic 40–83; PULSE 86–98; TEMP 36.5–36.9; O2SAT 91–97
[2016-11-18] MEDS: AMIODARONE / D5W 200 ML IV SCH ×2 (03:10→14:49)
[2016-11-18] MEDS: NORMOSOL R 1,000 ML IV SCH ×2 (04:16→15:50)
[2016-11-18] MEDS: FENTANYL CITRATE INJ 50 MCG/1 ML 2 ML VIAL IV PRN ×4 (04:42→19:55)
[2016-11-18 04:49] LABS: HEMATOCRIT 31.8 % (37-47); MEAN CELL VOLUME 86.9 fL (80-100); MEAN CORPUSCULAR HGB CONC 33.3 g/dl (32-36); MEAN PLATELET VOLUME 9.8 fL (7.4-10.4); PLATELET COUNT 122 K/uL (130-400); RED BLOOD COUNT 3.66 M/uL (4.2-5.4); WHITE BLOOD COUNT 11.56 K/uL (4.8-10.8)
[2016-11-18 04:57] LABS: PARTIAL THROMBOPLASTIN RATIO 1.6; PROTHROMBIN TIME (PATIENT) 11.1 SECONDS (9.0-12.0)
[2016-11-18 05:06] LABS: BUN/CREATININE RATIO 12.5 (10-20); CALCIUM 7.4 mg/dl (8.5-10.1); CREATININE 0.62 mg/dl (0.60-1.20); MAGNESIUM 2.3 mg/dl (1.8-2.4); POTASSIUM 3.9 mmol/L (3.5-5.1)
[2016-11-18 05:09] LABS: ALB/GLOB RATIO 0.6 (0.9-2); PHOSPHORUS 1.9 mg/dl (2.5-4.9)
[2016-11-18 06:38] LABS: ISTAT ARTERIAL BLOOD GAS HCO3 24 meq/L (19-24); ISTAT ARTERIAL BLOOD GAS PCO2 41 mmHg (35-46); ISTAT ARTERIAL BLOOD GAS PO2 76 mmHg (80-95); ISTAT ARTERIAL BLOOD GAS pH 7.36 (7.35-7.45); ISTAT CARBON DIOXIDE 25 mEq/l (24-31); ISTAT DELIVERY SYSTEM Cannula; ISTAT SITE Art Line
--- NOTE | 2016-11-18 07:19 | DIAGNOSTIC IMAGING REPORT ---
CHEST ONE VIEW PORTABLE CLINICAL HISTORY: Respiratory failure dyspnea COMPARISON STUDY: 11/17/2016 FINDINGS: Nasogastric tube within the stomach. Unchanging consolidative change medial left base. Left-sided chest tube in good position. No evidence for significant pneumothorax. Unchanging infiltrative process medial right base. Lungs otherwise appear clear. IMPRESSION: Unchanged exam as compared to the prior date. Electronically signed by: Johny Zee M.D. 11/18/2016 7:17 AM Dictated Date/Time: 11/18/2016 7:15 AM
--- NOTE | 2016-11-18 07:42 | SURGERY PROGRESS NOTE ---
DATE: 11/18/2016 DATE: 11/18/2016. Nadiya is resting comfortably. She is this morning not complaining of abdominal discomfort. Her last vitals showed a temperature of 36.7, pulse 91, respirations 24, blood pressure 113/57, O2 sats 95 on room air. Chest x-ray was noted. I\T\O she had minimal drainage out of her NG tube. Her urine output was 975 overnight. The abdomen is softly distended, but she does not have any tenderness. At this point we will discontinue the NG tube was start her on clear liquid diet.
[2016-11-18] MEDS: DOCUSATE SODIUM/SENNA 50/8.6MG TAB PO SCH (07:53)
[2016-11-18] MEDS: CEROVITE ADV FORMULA TAB PO SCH ×2 (07:53→21:24)
[2016-11-18] MEDS: RANITIDINE HCL 150 MG TAB PO SCH ×2 (07:53→21:24)
[2016-11-18] MEDS: PIPERACILL/TAZOBAC IV 4.5 GM in DEXTROSE 5% 100ML IV SCH ×2 (07:54→15:48)
[2016-11-18] MEDS: CHOLECALCIFEROL 1000 INTER.UNIT TAB PO SCH (07:54)
[2016-11-18] MEDS: PANTOprazole INJ 40 MG in SYRINGE 0 ML IV SCH ×2 (07:54→21:22)
[2016-11-18] MEDS: CALCIUM 600MG + VIT D 400 IU TAB PO SCH ×2 (07:54→21:23)
[2016-11-18] MEDS: IPRATROPIUM BROMIDE/ALBUTEROL respimat INH INH SCH ×4 (07:54→21:22)
--- NOTE | 2016-11-18 07:55 | Surgery Progress Note ---
Subjective Date of Service: Nov 18, 2016. Pt. sitting in chair--she note she feels good, particularly since she has been OOB. Objective Vitals Date Time Temp Pulse Resp B/P Pulse Ox O2 Delivery O2 Flow Rate FiO2 11/18/16 06:15 91 24 113/57 95 11/18/16 06:00 95 21 109/68 95 11/18/16 05:45 90 18 106/53 96 11/18/16 05:30 90 19 106/53 94 11/18/16 05:15 96 15 130/74 93 11/18/16 05:00 94 17 95/53 95 11/18/16 04:15 92 17 110/60 95 11/18/16 04:00 36.7 92 18 107/61 94 11/18/16 04:00 Nasal Cannula 5.0 11/18/16 03:30 93 17 99/53 95 11/18/16 03:00 93 16 98/57 95 11/18/16 02:45 97 26 108/62 94 11/18/16 02:30 95 14 114/63 95 11/18/16 02:00 91 17 112/77 95 11/18/16 01:45 91 17 96/73 94 11/18/16 01:30 92 17 114/83 94 11/18/16 01:17 94 19 80/61 94 11/18/16 01:15 95 17 77/44 95 11/18/16 01:00 92 21 105/64 96 11/18/16 00:15 91 24 85/52 93 11/18/16 00:06 36.8 94 24 81/44 93 11/18/16 00:00 Nasal Cannula 5.0 11/18/16 00:00 93 17 75/40 92 11/17/16 23:30 96 22 102/55 94 11/17/16 23:27 99 20 108/57 95 11/17/16 23:00 97 20 83/62 96 11/17/16 22:00 36.9 98 22 90/54 95 Nasal Cannula 5.0 96/53 11/17/16 22:00 98 19 90/54 96 95/52 11/17/16 21:46 100 19 91/51 97 85/54 11/17/16 21:45 100 18 96 83/51 11/17/16 21:30 103 26 97/63 92 97/55 11/17/16 21:15 103 19 96 95/53 11/17/16 21:00 103 18 87/54 96 89/50 11/17/16 20:45 102 18 96 84/51 11/17/16 20:00 105 17 97 108/60 11/17/16 20:00 Nasal Cannula 5.0 11/17/16 20:00 36.6 102 21 95/53 94 Nasal Cannula 5.0 11/17/16 19:45 103 21 96 97/52 11/17/16 19:30 102 23 97/60 95 105/57 11/17/16 19:15 104 25 93 99/54 11/17/16 19:00 101 22 95/59 94 105/58 11/17/16 18:45 108 19 95 119/66 11/17/16 18:30 104 19 98/55 94 110/57 11/17/16 18:15 102 21 93 106/62 11/17/16 18:00 104 27 101/57 94 106/60 11/17/16 17:45 103 22 94 100/55 11/17/16 17:30 109 31 98/62 93 107/59 11/17/16 17:15 110 23 95 98/58 11/17/16 17:00 110 17 105/59 94 106/60 11/17/16 16:45 112 18 94 102/57 11/17/16 16:30 110 20 93/57 95 111/46 11/17/16 16:15 114 25 93/60 94 107/70 11/17/16 16:00 112 20 94/64 94 109/69 11/17/16 16:00 Nasal Cannula 5.0 11/17/16 16:00 36.8 111 21 93/60 94 Nasal Cannula 5.0 11/17/16 15:45 113 25 98/63 93 107/69 11/17/16 15:30 114 23 100/64 94 113/72 11/17/16 13:50 159 21 80/51 92 94/74 11/17/16 12:00 94 Nasal Cannula 5.0 11/17/16 12:00 106 25 100/58 93 126/118 11/17/16 10:00 107 21 110/63 94 Nasal Cannula 5.0 87/78 11/17/16 08:00 94 Nasal Cannula 5.0 Physical Exam General: + well developed, + well nourished, No distress Pulmonary: No accessory muscle use, No respiratory distress Neurologic: + alert & oriented x 3 Radiology CXR shows consolidation at left base similar to yesterday's CXR Drains / Tubes chest tube (left 240 cc last 24 hours; 70 cc last shift), other (pericardial drain 15 cc last 24 hours; no recorded drainage last shift) Assessment & Plan 71 year old female with right ventricular perforation following PPM -cardiac tamponade resolved with pericardial drain--mgt. per ICU/cardiology -left hemothorax: -continue CT drainage -if pleural effusion/consolidation persists, will consider TPA placement in chest tube or alternative procedure to evacuate it -PPM lead repositioned on 11/16/16
[2016-11-18] MEDS ORDERED: POTASSIUM PHOS 3 MMOL/1 ML INFUSION IV STA (08:00)
[2016-11-18] MEDS ORDERED: POTASSIUM PHOSPHATE INJ 15 MMOL in SODIUM CHLORIDE 0.9% 250ML 250 ML IV ONE (08:30)
[2016-11-18] MEDS: NOREPINEPHRINE BIT INJ 8 MG in DEXTROSE 5% 500ML 500 ML IV PRN (09:02)
[2016-11-18] MEDS: VANCOMYCIN INJ 1,350 MG in SODIUM CHLORIDE 0.9% 250ML 250 ML IV SCH ×2 (09:03→21:26)
--- NOTE | 2016-11-18 09:43 | Procedure Note ---
Procedure Note Procedure Date Nov 17, 2016. Procedure Description Procedure Name: Right internal jugular triple lumen catheter Central Line Procedure time out: side/site verified, patient ID confirmed, sterile procedure used Consent obtained: written Time of procedure: 11:30 Indications: poor venous access, central drug admin. Prep: chlorhexadine prep, sterile drape, sterile procedures used Anesthesia: local injection, lidocaine 1% without epi Volume anesthetic (ml's): 3 Central line location: internal jugular (R) Additional details: percutaneous placement, ultrasound guidance, Selinger technique used, line sutured, good blood return CXR: appropriate position, no pneumothorax Complications: none Patient tolerated procedure: well Post-procedure vital signs: reviewed and stable Comments: The patient developed rapid a-fib before the procedure was started. She was asymptomatic, tolerated the procedure well
--- NOTE | 2016-11-18 09:54 | Procedure Note ---
Procedure Note Procedure Date Nov 17, 2016. Procedure Description Procedure Name: Right axillary arterial line Procedure time out: side/site verified, patient ID confirmed, correct procedure Consent obtained: written Time of procedure: 12:00 Performed by: attending, physician adjunct instructor in economics Indications: diagnostic Contraindications: none Description: The right axilla was prepped with chlorhexidine Area covered with full body drape. Using ultrasounds, the axillary artery was identified, the area over was infiltrated with lidocaine 1%. Under ultrasound guidance, the needle was inserted in the artery from first try , not [id number]. Guide wire placed in the artery, needle removed, then a- line inserted over the guidewire. Guide wire removed intact. Good arterial wave forms on the monitor. No hematoma noted, no pain the the RUE Complications: none Patient tolerated procedure: well Post-procedure vital signs: reviewed and stable
--- NOTE | 2016-11-18 10:51 | Critical Care Progress Note ---
Critical Care Progress Note Date of Service Nov 18, 2016. Attending Dr. Steele Subjective 71-year-old female with past medical history of hypertension and vertigo here after she experienced a syncopal attack at home after a bowel movement that had lasted for 15 minutes. She was noted to have a transient complete heart block with long pause. Syncopal episode thought to be secondary to transient complete heart block with a vasovagal component. 11/14 Had a dual chamber pacemaker placed but was found to have a pericardial effusion due in to perforation of the right ventricle secondary to placement of a pacemaker lead. 11/15 She had a pericardial drain along with right femoral sheath placed CT abdomen and pelvis revealed a left-sided moderate Haemothorax and the left- sided chest tube was placed 11/16 NG tube was placed for abdominal distension and coffee ground emesis Revision of pacemaker leads 11/17: Removal of a right femoral sheath, right sided jugular triple-lumen central line and right axillary arterial line placed. 11/18: Removal of NG tube Had an episode of A. fib yesterday after injecting lidocaine for placing the triple-lumen catheter and was started on amiodarone drip. Out of bed in chair today and doing better. Continues to have some pain along her left chest which is well-controlled. Denies any difficulty breathing or palpitations. Has not had a bowel movement yet. NG tube was removed today and diet has been advanced to clear liquids. Denies any abdominal pain, but feels gassy and was nauseous. Objective GENERAL: Patient is in no acute distress. HEENT: mucous membranes moist, no nasal congestion, no scleral icterus. NECK: No stridor, trachea is midline LUNGS: decreased breath sounds on left, left sided chest tube HEART: Without murmurs gallops or rubs, normal sinus rhythm ABDOMEN: Soft, distended EXTREMITIES: No cyanosis or edema, Right IJ triple lumen, Right axillary arterial line NEUROLOGIC: Oriented x 3, no acute motor or sensory deficits, no focal weakness. Current SOFA Score SOFA Score Response (Comments) Value PaO2/FiO2 (mmHg) < 300 2 Platelets (x10) < 150 1 Level of Hypotension MAP less than 70 1 Total 4 Assessment & Plan 71-year-old female with past medical history of hypertension and vertigo presented after a syncopal episode after having a bowel movement. EKG revealed a transient complete heart block. Status post dual-chamber pacemaker placed on11/14 and was found to have a pericardial effusion secondary to puncture of the right ventricular wall due to a lead from the pacemaker and had successful placement of pericardial drain. CT abdomen and pelvis revealed a left-sided moderate large hemothorax and a chest tube was placed to suction. She received a total of 4 units of PRBCs. Had an episode of coffee-ground emesis , started on Protonix and NG tube was placed. She had a successful revision of her pacemaker leads . After the procedure she was noted to have abdominal distention and a CT abdomen and pelvis was ordered after a flatplate revealed dilated loops of bowel. Abdominal distention somewhat better today though she still hasn't been passing gas or had a bowel movement. Pericardial drain and right femoral sheath were removed. Right-sided internal jugular triple-lumen catheter and right axillary arterial line were placed. NG tube was removed today and diet has been advanced to clear liquids. Neurology - Alert, awake and oriented - History of vertigo: meclizine - Pain control with IV acetaminophen and fentanyl CVS: Pericardial effusion: s/p pericardial drain placement - Secondary to puncture of the right ventricular wall by ventricular lead of the pacemaker - Echo ordered: Small pericardial effusion and pericardial drain removed - Pericardial drain removed Atrial fibrillation with RVR: - was started on amiodarone drip which will eventually changed to by mouth - Currently in sinus rhythm - Transient complete heart block Status post dual-chamber pacemaker placement but ventricular lead in the ventricular wall causing pericardial effusion - Pacemaker lead revision Hypotension: - Currently on norepinephrine - weaning - Status post 3 PRBC transfusion Respiratory - Left-sided moderate hemothorax on CT Status post left chest tube placement to suction - 1450 ml of serosanguineous drainage - Thoracic surgery consultation - might need VATS - RAD: Continue Combivent inhaler GI/FEN: Episode of Coffee-ground emesis: - Protonix IV push BID Dilated bowel loops on CT abdomen and pelvis - Gen. surgery consultation -NG tube removed today Diet advance to clear liquids Renal - IV fluids: Normosol at 125 mls/hr - Electrolytes: Mg at 2.2 Phos at 1.9, K Phos 15 mmol added Ca at 7. 4 ID: - Remove femoral sheath after placement of central and arterial line -Zosyn and vancomycin added for empiric coverage - DVT prophylaxis: SCDs Tubes/drains - Left-sided chest tube to suction - Mercedes catheter -Right IJ triple-lumen catheter, right axillary arterial line PT/OT CODE STATUS - Level I full code Disposition - ICU Resident Physician Supervision Note: I was present with Dr. Tracie David during the history and exam. I discussed the case with the resident and agree with the findings and plan as documented in the note. Any exceptions or clarifications are listed here: Pericardial drain removed yesterday, assuming it was contributing to the new onset a-fib. The a-fib occurred before accessing the vessel during the central line insertion. Likely related to moving the patient for central line positioning. OOB to chair today, NGT removed, tolerated diet. Still on low dose levophed, Echo shows good contractility, her volume status seems adequate now. Probably still with low SVR, possible element of SIRS. Continue IV fluids Continue Amiodarone short term as outpatient. Convert to PO when infusion finishes Documented By: Mick Steele MD Consults & Procedures Consultants: Cardiology, thoracic surgery, general surgery Procedures: 11/14/16 - PPM 11/15/16 - Pericardiocentesis with pericardial drain 11/15/16 - Left chest tube 28 Fr 11/16/16- PPM revision 11/17/2016- removal of right femoral sheath, placement of right jugular triple- lumen catheter, right axillary arterial line 11/18/2016- NG tube removed Data Medications: Current Inpatient Medications Medications (Trade) Dose Ordered Sig/Barb Route Start Time Stop Time Status Last Admin Dose Admin Al Hydrox/Mg Hydrox/Simethicone (Maalox Max Susp) 15 ml Q4H PRN PO 11/12/16 12:15 12/12/16 12:14 Magnesium Hydroxide (Milk Of Magnesia Susp) 30 ml Q12H PRN PO 11/12/16 12:15 12/12/16 12:14 Ranitidine HCl (zANTac TAB) 150 mg BID PO 11/12/16 21:00 12/12/16 20:59 11/18/16 07:53 150 MG Calcium/Vitamin D (Caltrate Plus Tab) 1 tab BID PO 11/12/16 21:00 12/12/16 20:59 11/18/16 07:54 1 TAB Albuterol/ Ipratropium (Combivent Respimat Inh) 1 puffs QID INH 11/12/16 17:00 12/12/16 16:59 11/18/16 07:54 1 PUFFS Meclizine HCl (Antivert Tab) 25 mg TID PRN PO 11/12/16 16:30 12/12/16 16:29 Nitroglycerin (Nitrostat Tab) 0.4 mg PRN PRN UT 11/12/16 16:30 12/12/16 16:29 Multivitamins/ Minerals (Multivitamin W/ Minerals Tab) 1 tab BID PO 11/12/16 21:00 12/12/16 20:59 11/18/16 07:53 1 TAB Senna/Docusate Sodium (Senokot S Tab) 3 tab DAILY PO 11/13/16 09:00 12/13/16 08:59 11/18/16 07:53 3 TAB Tramadol HCl (Ultram Tab) 50 mg BID PRN PO 11/12/16 16:30 12/12/16 16:29 11/14/16 15:46 50 MG Cholecalciferol (Vitamin D Tab) 2,000 inter.unit DAILY PO 11/13/16 09:00 12/13/16 08:59 11/18/16 07:54 2,000 INTER.UNIT Acetaminophen (Tylenol Tab) 650 mg Q4H PRN PO 11/14/16 13:45 12/14/16 13:44 Oxycodone HCl (Roxicodone Immediate Rel Tab) 5 mg Q4 PRN PO 11/14/16 13:45 11/28/16 13:44 11/15/16 20:34 5 MG Ondansetron HCl 4 mg 4 mg Q4H PRN IV 11/14/16 15:30 12/14/16 15:29 11/16/16 07:48 4 MG Norepinephrine Bitartrate/ Dextrose (Levophed Inj/ D5W 500ml) 508 ml @ 0 mls/hr Q0M PRN IV 11/15/16 11:00 12/15/16 10:59 11/18/16 09:02 18 MLS/HR Ioversol (Optiray 320) 100 ml UD PRN IV 11/15/16 11:15 11/19/16 11:14 Fentanyl Citrate 50 mcg 50 mcg Q2H PRN IV 11/15/16 18:45 11/29/16 18:44 11/18/16 04:42 50 MCG Parenteral Electrolyte Solution 1,000 ml @ 125 mls/hr Q8H IV 11/16/16 08:15 12/16/16 08:14 11/18/16 04:16 125 MLS/HR Acetaminophen 100 ml @ 400 mls/hr Q8H PRN IV 11/16/16 08:15 12/16/16 08:14 11/16/16 13:10 400 MLS/HR Pantoprazole Sodium/Syringe (Protonix Inj/ Syringe) 10 ml @ 5 mls/min DAILY@09,21 IV 11/16/16 21:00 12/16/16 20:59 11/18/16 07:54 5 MLS/MIN Vancomycin HCl (Consult) 1 ea UD PRN N/A 11/17/16 04:45 12/17/16 04:44 Piperacillin Sod/ Tazobactam Sod 1 ea 1 ea UD PRN N/A 11/17/16 04:45 12/17/16 04:44 Piperacillin Sod/ Tazobactam Sod 4.5 gm/Dextrose 120 ml @ 30 mls/hr Q8H IV 11/17/16 08:00 11/19/16 07:59 11/18/16 07:54 30 MLS/HR Vancomycin HCl 1350 mg/Sodium Chloride 277 ml @ 125 mls/hr Q14H IV 11/17/16 20:00 11/19/16 19:59 11/18/16 09:03 125 MLS/HR Amiodarone HCL/ Dextrose 200 ml @ 16.7 mls/hr [id number] IV 11/17/16 20:00 12/17/16 19:59 11/18/16 03:10 16.7 MLS/HR Potassium Phosphate 15 mmol/ Sodium Chloride 255 ml @ 127.5 mls/ hr TODAY@0830 ONCE IV 11/18/16 08:30 11/18/16 10:29 11/18/16 09:01 127.5 MLS/HR Vancomycin HCl/ Sodium Chloride (Vancomycin Inj/ Nss 250ml) 277 ml @ 125 mls/hr Q12H IV 11/18/16 21:00 11/19/16 19:59 I & O: 24-Hour Column 11/18/16 07:59 Intake Total 4630 ml Output Total 2585 ml Balance 2045 ml Vital Signs: Date Time Temp Pulse Resp B/P Pulse Ox O2 Delivery O2 Flow Rate FiO2 11/18/16 10:00 86 19 107/54 94 Nasal Cannula 2.0 104/67 11/18/16 08:00 95 2.0 11/18/16 08:00 36.9 95 20 94/50 93 Nasal Cannula 2.0 92/61 11/18/16 06:15 91 24 113/57 95 11/18/16 06:00 95 21 109/68 95 11/18/16 05:45 90 18 106/53 96 11/18/16 05:30 90 19 106/53 94 11/18/16 05:15 96 15 130/74 93 11/18/16 05:00 94 17 95/53 95 11/18/16 04:15 92 17 110/60 95 11/18/16 04:00 36.7 92 18 107/61 94 11/18/16 04:00 Nasal Cannula 5.0 11/18/16 03:30 93 17 99/53 95 11/18/16 03:00 93 16 98/57 95 11/18/16 02:45 97 26 108/62 94 11/18/16 02:30 95 14 114/63 95 11/18/16 02:00 91 17 112/77 95 11/18/16 01:45 91 17 96/73 94 11/18/16 01:30 92 17 114/83 94 11/18/16 01:17 94 19 80/61 94 11/18/16 01:15 95 17 77/44 95 11/18/16 01:00 92 21 105/64 96 11/18/16 00:15 91 24 85/52 93 11/18/16 00:06 36.8 94 24 81/44 93 11/18/16 00:00 Nasal Cannula 5.0 11/18/16 00:00 93 17 75/40 92 11/17/16 23:30 96 22 102/55 94 11/17/16 23:27 99 20 108/57 95 11/17/16 23:00 97 20 83/62 96 11/17/16 22:00 36.9 98 22 90/54 95 Nasal Cannula 5.0 96/53 11/17/16 22:00 98 19 90/54 96 95/52 11/17/16 21:46 100 19 91/51 97 85/54 11/17/16 21:45 100 18 96 83/51 11/17/16 21:30 103 26 97/63 92 97/55 11/17/16 21:15 103 19 96 95/53 11/17/16 21:00 103 18 87/54 96 89/50 11/17/16 20:45 102 18 96 84/51 11/17/16 20:00 105 17 97 108/60 11/17/16 20:00 Nasal Cannula 5.0 11/17/16 20:00 36.6 102 21 95/53 94 Nasal Cannula 5.0 11/17/16 19:45 103 21 96 97/52 11/17/16 19:30 102 23 97/60 95 105/57 11/17/16 19:15 104 25 93 99/54 11/17/16 19:00 101 22 95/59 94 105/58 11/17/16 18:45 108 19 95 119/66 11/17/16 18:30 104 19 98/55 94 110/57 11/17/16 18:15 102 21 93 106/62 11/17/16 18:00 104 27 101/57 94 106/60 11/17/16 17:45 103 22 94 100/55 11/17/16 17:30 109 31 98/62 93 107/59 11/17/16 17:15 110 23 95 98/58 11/17/16 17:00 110 17 105/59 94 106/60 11/17/16 16:45 112 18 94 102/57 11/17/16 16:30 110 20 93/57 95 111/46 11/17/16 16:15 114 25 93/60 94 107/70 11/17/16 16:00 112 20 94/64 94 109/69 11/17/16 16:00 Nasal Cannula 5.0 11/17/16 16:00 36.8 111 21 93/60 94 Nasal Cannula 5.0 11/17/16 15:45 113 25 98/63 93 107/69 11/17/16 15:30 114 23 100/64 94 113/72 11/17/16 13:50 159 21 80/51 92 94/74 11/17/16 12:00 94 Nasal Cannula 5.0 11/17/16 12:00 106 25 100/58 93 126/118 Laboratory Results: Last 24 Hours Test 11/17/16 15:00 11/18/16 04:39 11/18/16 06:25 White Blood Count 13.92 K/uL 11.56 K/uL Red Blood Count 3.85 M/uL 3.66 M/uL Hemoglobin 11.1 g/dL 10.6 g/dL Hematocrit 33.3 % 31.8 % Mean Corpuscular Volume 86.5 fL 86.9 fL Mean Corpuscular Hemoglobin 28.8 pg 29.0 pg Mean Corpuscular Hemoglobin Concent 33.3 g/dl 33.3 g/dl RDW Standard Deviation 50.0 fL 50.7 fL RDW Coefficient of Variation 15.9 % 16.0 % Platelet Count 116 K/uL 122 K/uL Mean Platelet Volume 10.0 fL 9.8 fL Sodium Level 139 mmol/L 142 mmol/L Potassium Level 3.8 mmol/L 3.9 mmol/L Chloride Level 106 mmol/L 108 mmol/L Carbon Dioxide Level 26 mmol/L 28 mmol/L Anion Gap 7.0 mmol/L 6.0 mmol/L Blood Urea Nitrogen 10 mg/dl 8 mg/dl Creatinine 0.64 mg/dl 0.62 mg/dl Est Creatinine Clear Calc Drug Dose 83.5 ml/min 86.2 ml/min Estimated GFR () 104.8 105.9 Estimated GFR (Non- 90.4 91.4 BUN/Creatinine Ratio 16.3 12.5 Random Glucose 130 mg/dl 120 mg/dl Calcium Level 7.6 mg/dl 7.4 mg/dl Ionized Calcium 1.07 mmol/l Phosphorus Level 1.9 mg/dl 1.9 mg/dl Magnesium Level 2.2 mg/dl 2.3 mg/dl Total Bilirubin 0.7 mg/dl 0.5 mg/dl Aspartate Amino Transf (AST/SGOT) 20 U/L 16 U/L Alanine Aminotransferase (ALT/SGPT) 10 U/L 14 U/L Alkaline Phosphatase 70 U/L 70 U/L Total Protein 5.2 gm/dl 5.2 gm/dl Albumin 2.1 gm/dl 2.0 gm/dl Globulin 3.1 gm/dl 3.2 gm/dl Albumin/Globulin Ratio 0.7 0.6 Prothrombin Time 11.1 SECONDS Prothromb Time International Ratio 1.0 Activated Partial Thromboplast Time 41.5 SECONDS Partial Thromboplastin Ratio 1.6 Lactic Acid Level 0.7 mmol/L Blood Gas Sample Site Art Line Bedside Blood Gas pH (LAB) 7.36 Bedside Blood Gas pCO2 (LAB) 41 mmHg Bedside Blood Gas pO2 (LAB) 76 mmHg Bedside Blood Gas HCO3 (LAB) 24 meq/L Bedside Blood Gas Total CO2 25 mEq/l Bedside Blood Gas Base Excess (LAB) -2.0 meq/L Bedside Blood Gas O2 Saturation 95.0 % Claudio Test NA Oxygen Delivery Device Cannula
--- NOTE | 2016-11-18 10:53 | Pharmacy Progress Note ---
Pharmacy Antibiotic Prog Note Date of Service: Nov 18, 2016. Subjective: The patient is currently receiving vancomycin and piperacillin/tazobactam empirically. Objective: Height (Feet): 5 Height (Inches): 1.00 Weight (Kilograms): 91.000 Lab Results (24hrs): Laboratory Tests Test 11/17/16 15:00 11/18/16 04:39 BUN/Creatinine Ratio 16.3 12.5 Blood Urea Nitrogen 10 mg/dl 8 mg/dl Creatinine 0.64 mg/dl 0.62 mg/dl White Blood Count 13.92 K/uL 11.56 K/uL Micro Results: Item Value Date Time MRSA DNA Surveillance Screen - Final Complete 11/12/16 1300 Nasal Specimen Negative for MRSA by DNA Probe C.difficile Toxin B Gene (PCR) - Final Complete 11/13/16 0915 Stool No C. difficile toxin B gene detected Shiga Toxin Test - Final Complete 11/13/16 0915 Stool No E. Coli shiga toxin 1 or shiga tox... Blood Culture - Preliminary Resulted 11/17/16 0251 Blood NO GROWTH TO DATE. Blood Culture - Preliminary Resulted 11/17/16 0303 Blood NO GROWTH TO DATE. Assessment & Plan: Assessment: * 71 y/o s/p pacemaker, pericardicentesis, chest tube and pacemaker repositioning. * Low-grade fever overnight (37.5) on 11/17/16 coupled with complicated hospital stay, h/o ortho surgery, etc * Currently afebrile and WBC trending down * ABX set to stop on 11/19/16 (after 48 hours of empiric therapy) * Serum Creatinine 0.84-->0.62mg/dL * will slightly increase vancomycin dosing Plan: * Continue vancomycin and piperacillin/tazobactam at this time for empiric coverage Vancomycin: * Increase to 1350mg IV every 12 hours * assess trough if continued beyond 48 hours * goal: 15-20mcg/mL Piperacillin/tazobactam: * Continue 4.5g IV every 8 hours Labs: * Vancomycin trough if continued past 24 hours and adjust dose accordingly Pharmacy will continue to follow and will adjust dose/frequency as necessary. Thank you
--- NOTE | 2016-11-18 11:01 | Progress Note ---
Subjective Date of Service: Nov 17, 2016. Subjective Pt evaluation today including: conversation w/ patient, physical exam, lab review, review of studies, conversation w/ mining consultant, review of inpatient medication list Pain: abdomina, chest PO Intake: NPO Voiding: rodriguez catheter in place patient was feeling slightly better on 11/17 discussed case with ICU and cardiology and reviewed note from CT surgery Problem List Medical Problems: (1) Asthma, Unspecified Status: Chronic (2) Esophageal Reflux Status: Chronic (3) Hypertension Nos Status: Chronic (4) Lumb/Lumbosac Disc Degen Status: Chronic (5) Macular Degeneration Nos Status: Chronic (6) Osteoporosis Nos Status: Chronic (7) Syncope Status: Acute (8) Vertigo Status: Chronic Review of Systems Respiratory: + shortness of breath Abdomen: + pain All Other Systems: Reviewed and Negative Medications Current Inpatient Medications Medications (Trade) Dose Ordered Sig/Barb Route Start Time Stop Time Status Last Admin Dose Admin Al Hydrox/Mg Hydrox/Simethicone (Maalox Max Susp) 15 ml Q4H PRN PO 11/12/16 12:15 12/12/16 12:14 Magnesium Hydroxide (Milk Of Magnesia Susp) 30 ml Q12H PRN PO 11/12/16 12:15 12/12/16 12:14 Ranitidine HCl (zANTac TAB) 150 mg BID PO 11/12/16 21:00 12/12/16 20:59 11/15/16 20:34 150 MG Calcium/Vitamin D (Caltrate Plus Tab) 1 tab BID PO 11/12/16 21:00 12/12/16 20:59 11/15/16 20:35 1 TAB Albuterol/ Ipratropium (Combivent Respimat Inh) 1 puffs QID INH 11/12/16 17:00 12/12/16 16:59 11/17/16 13:49 1 PUFFS Meclizine HCl (Antivert Tab) 25 mg TID PRN PO 11/12/16 16:30 12/12/16 16:29 Nitroglycerin (Nitrostat Tab) 0.4 mg PRN PRN UT 11/12/16 16:30 12/12/16 16:29 Multivitamins/ Minerals (Multivitamin W/ Minerals Tab) 1 tab BID PO 11/12/16 21:00 12/12/16 20:59 11/15/16 20:35 1 TAB Senna/Docusate Sodium (Senokot S Tab) 3 tab DAILY PO 11/13/16 09:00 12/13/16 08:59 11/14/16 14:12 3 TAB Tramadol HCl (Ultram Tab) 50 mg BID PRN PO 11/12/16 16:30 12/12/16 16:29 11/14/16 15:46 50 MG Cholecalciferol (Vitamin D Tab) 2,000 inter.unit DAILY PO 11/13/16 09:00 12/13/16 08:59 11/14/16 14:13 2,000 INTER.UNIT Acetaminophen (Tylenol Tab) 650 mg Q4H PRN PO 11/14/16 13:45 12/14/16 13:44 Oxycodone HCl (Roxicodone Immediate Rel Tab) 5 mg Q4 PRN PO 11/14/16 13:45 11/28/16 13:44 11/15/16 20:34 5 MG Ondansetron HCl 4 mg 4 mg Q4H PRN IV 11/14/16 15:30 12/14/16 15:29 11/16/16 07:48 4 MG Norepinephrine Bitartrate/ Dextrose (Levophed Inj/ D5W 500ml) 508 ml @ 0 mls/hr Q0M PRN IV 11/15/16 11:00 12/15/16 10:59 11/17/16 09:08 21 MLS/HR Ioversol (Optiray 320) 100 ml UD PRN IV 11/15/16 11:15 11/19/16 11:14 Fentanyl Citrate 50 mcg 50 mcg Q2H PRN IV 11/15/16 18:45 11/29/16 18:44 11/17/16 14:17 50 MCG Parenteral Electrolyte Solution 1,000 ml @ 125 mls/hr Q8H IV 11/16/16 08:15 12/16/16 08:14 11/17/16 16:28 125 MLS/HR Acetaminophen 100 ml @ 400 mls/hr Q8H PRN IV 11/16/16 08:15 12/16/16 08:14 11/16/16 13:10 400 MLS/HR Pantoprazole Sodium/Syringe (Protonix Inj/ Syringe) 10 ml @ 5 mls/min DAILY@09,21 IV 11/16/16 21:00 12/16/16 20:59 11/17/16 08:07 5 MLS/MIN Vancomycin HCl (Consult) 1 ea UD PRN N/A 11/17/16 04:45 12/17/16 04:44 Piperacillin Sod/ Tazobactam Sod 1 ea 1 ea UD PRN N/A 11/17/16 04:45 12/17/16 04:44 Piperacillin Sod/ Tazobactam Sod 4.5 gm/Dextrose 120 ml @ 30 mls/hr Q8H IV 11/17/16 08:00 11/19/16 07:59 11/17/16 16:28 30 MLS/HR Vancomycin HCl 1350 mg/Sodium Chloride 277 ml @ 125 mls/hr Q14H IV 11/17/16 20:00 11/19/16 19:59 Amiodarone HCL/ Dextrose 200 ml @ 33.3 mls/hr Q6H1M IV 11/17/16 14:00 11/17/16 20:00 11/17/16 13:50 33.3 MLS/HR Amiodarone HCL/ Dextrose (Nexterone / D5w) 200 ml @ 16.7 mls/hr [id number] IV 11/17/16 20:00 12/17/16 19:59 Objective Vital Signs Date Time Temp Pulse Resp B/P Pulse Ox O2 Delivery O2 Flow Rate FiO2 11/17/16 13:50 159 21 80/51 92 94/74 11/17/16 12:00 94 Nasal Cannula 5.0 11/17/16 12:00 106 25 100/58 93 126/118 11/17/16 10:00 107 21 110/63 94 Nasal Cannula 5.0 87/78 11/17/16 08:00 94 Nasal Cannula 5.0 11/17/16 07:40 37.0 110 24 128/106 93 Nasal Cannula 5.0 102/57 11/17/16 06:45 110 26 125/67 89 11/17/16 06:40 106 22 99/61 92 11/17/16 06:30 109 24 118/75 92 11/17/16 06:20 107 20 98/89 92 11/17/16 06:15 108 27 115/65 92 11/17/16 06:00 37.3 110 21 101/74 93 Nasal Cannula 5.0 11/17/16 05:45 112 21 102/78 93 11/17/16 05:30 108 23 116/70 95 11/17/16 05:15 105 22 117/65 90 11/17/16 05:00 37.4 108 23 129/95 89 Nasal Cannula 5.0 11/17/16 04:45 111 28 119/80 92 11/17/16 04:30 110 16 105/60 94 11/17/16 04:15 115 21 101/63 93 11/17/16 04:00 37.5 116 22 102/62 93 Nasal Cannula 5.0 11/17/16 04:00 94 Nasal Cannula 5.0 11/17/16 03:50 114 26 100/60 92 11/17/16 03:45 111 18 96/58 94 11/17/16 03:30 111 24 104/59 93 11/17/16 03:15 110 23 100/55 91 11/17/16 03:00 109 23 116/73 92 11/17/16 02:30 114 24 101/64 92 11/17/16 02:00 37.4 112 20 99/62 92 Nasal Cannula 5.0 11/17/16 01:30 112 20 105/58 93 11/17/16 01:00 116 19 92/59 92 11/17/16 00:30 119 27 103/56 92 11/17/16 00:15 116 21 92/58 92 11/17/16 00:00 37.4 117 22 102/59 92 11/17/16 00:00 92 Nasal Cannula 5.0 11/16/16 23:45 119 25 92/59 91 11/16/16 23:30 117 23 101/62 92 11/16/16 23:15 120 23 90/57 90 11/16/16 23:00 116 22 98/60 91 Nasal Cannula 5.0 11/16/16 22:45 116 24 95/56 92 11/16/16 22:30 117 20 94/60 92 11/16/16 22:20 114 22 105/73 92 11/16/16 22:15 114 21 99/65 91 11/16/16 22:00 37.2 112 20 93/58 94 Nasal Cannula 5.0 11/16/16 21:15 116 22 106/54 88 11/16/16 21:00 109 25 92/70 89 11/16/16 20:45 109 22 114/58 90 11/16/16 20:30 112 27 94/86 89 11/16/16 20:20 111 25 102/61 91 11/16/16 20:00 36.8 106 33 94/81 89 Nasal Cannula 5.0 11/16/16 20:00 90 Nasal Cannula 5.0 11/16/16 19:45 110 23 99/52 90 11/16/16 19:30 112 19 102/53 91 11/16/16 19:20 112 26 102/51 92 11/16/16 19:15 111 18 97/51 89 11/16/16 19:00 105 22 96/60 90 Nasal Cannula 5.0 11/16/16 18:10 98 33 130/68 91 11/16/16 18:00 102 29 102/61 90 Physical Exam General Appearance: WD/WN, no apparent distress Eyes: normal inspection, EOMI, sclerae normal ENT: + pertinent finding (NGT in place) Neck: supple, no adenopathy, no JVD Respiratory/Chest: no respiratory distress, no accessory muscle use, + decreased breath sounds (left base), + pertinent finding (left CT tender) Cardiovascular: regular rate, rhythm, no edema, no gallop, no JVD, no murmur Abdomen: non tender, soft, no organomegaly, + abnormal bowel sounds (hypoactive ) Extremities: normal range of motion, non-tender, normal inspection, no pedal edema, no calf tenderness, pelvis stable 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, alert, normal mood/affect, oriented x 3, + motor weakness (generalized) Skin: normal color, warm/dry, no rash Laboratory Results Last 24 Hours Test 11/16/16 22:50 11/17/16 04:20 11/17/16 06:34 11/17/16 15:00 White Blood Count 16.56 K/uL 16.24 K/uL 13.92 K/uL Red Blood Count 4.16 M/uL 4.04 M/uL 3.85 M/uL Hemoglobin 12.0 g/dL 11.5 g/dL 11.1 g/dL Hematocrit 35.7 % 34.7 % 33.3 % Mean Corpuscular Volume 85.8 fL 85.9 fL 86.5 fL Mean Corpuscular Hemoglobin 28.8 pg 28.5 pg 28.8 pg Mean Corpuscular Hemoglobin Concent 33.6 g/dl 33.1 g/dl 33.3 g/dl RDW Standard Deviation 48.7 fL 49.7 fL 50.0 fL RDW Coefficient of Variation 15.6 % 15.7 % 15.9 % Platelet Count 107 K/uL 114 K/uL 116 K/uL Mean Platelet Volume 10.3 fL 10.7 fL 10.0 fL Sodium Level 140 mmol/L 139 mmol/L Potassium Level 4.1 mmol/L 3.8 mmol/L Chloride Level 107 mmol/L 106 mmol/L Carbon Dioxide Level 25 mmol/L 26 mmol/L Anion Gap 8.0 mmol/L 7.0 mmol/L Blood Urea Nitrogen 13 mg/dl 10 mg/dl Creatinine 0.70 mg/dl 0.64 mg/dl Est Creatinine Clear Calc Drug Dose 75.6 ml/min 83.5 ml/min Estimated GFR () 101.7 104.8 Estimated GFR (Non- 87.8 90.4 BUN/Creatinine Ratio 18.0 16.3 Random Glucose 129 mg/dl 130 mg/dl Lactic Acid Level 1.0 mmol/L Calcium Level 7.2 mg/dl 7.6 mg/dl Phosphorus Level 1.8 mg/dl 1.9 mg/dl Magnesium Level 2.2 mg/dl 2.2 mg/dl Total Bilirubin 0.8 mg/dl 0.7 mg/dl Direct Bilirubin 0.2 mg/dl Aspartate Amino Transf (AST/SGOT) 26 U/L 20 U/L Alanine Aminotransferase (ALT/SGPT) 13 U/L 10 U/L Alkaline Phosphatase 62 U/L 70 U/L Total Protein 5.4 gm/dl 5.2 gm/dl Albumin 2.3 gm/dl 2.1 gm/dl Blood Gas Sample Site L Radial Bedside Blood Gas pH (LAB) 7.36 Bedside Blood Gas pCO2 (LAB) 37 mmHg Bedside Blood Gas pO2 (LAB) 64 mmHg Bedside Blood Gas HCO3 (LAB) 21 meq/L Bedside Blood Gas Total CO2 22 mEq/l Bedside Blood Gas Base Excess (LAB) -5.0 meq/L Bedside Blood Gas O2 Saturation 91.0 % Claudio Test Pass Oxygen Delivery Device Cannula Ionized Calcium 1.07 mmol/l Globulin 3.1 gm/dl Albumin/Globulin Ratio 0.7 Assessment and Plan 71 yo female with PMH of HTN, GERD and vertigo. presented with syncope (also happened about 2 years ago) 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 patient had a pacemaker on 11/14 but unfortunately there was a complication on 11/15 with the right ventricle wire going through the ventricle she developed a pericardial tamponade and a drain was placed, then developed a left hemothorax and CT was placed subsequently developed an ileus requiring NGT decompression - Hypotension due to tamponade: resolving, less dobutamine on 11/17, tamponade resolved with drain that was then pulled 11/17 continue arterial line for close monitoring - Left hemothorax: continue chest tube Dr. Arceo following, may require a VATS, to evaluate again on 11/18 - Cardiac tamponade: resolved with drain, management per icu and cardiology - SBO/ileus: NGT tube, appreciate surgery consult - Syncope: secondary to transient complete heart block pacer on 11/14, revision of leads on 11/16, working appropriately plan: continue ICU management for critically ill patient, overall doing better on 11/17 Continued [facility] stay due to: other Discharge planning: home
--- NOTE | 2016-11-18 11:16 | Progress Note ---
Subjective Date of Service: Nov 18, 2016. Subjective Pt evaluation today including: conversation w/ patient, physical exam, lab review, review of studies, conversation w/ food consultant, review of inpatient medication list Pain: c/o left chest pain, mild abdominal pain, right groin pain PO Intake: tolerated some clear liquids Voiding: rodriguez catheter in place patient was up to a chair this AM, sipped some clear liquids, no nausea c/o pain described above, hurts to take a deep breath no flatus, no BM today she remains positive, laughing and smiling about the situation Problem List Medical Problems: (1) Asthma, Unspecified Status: Chronic (2) Esophageal Reflux Status: Chronic (3) Hypertension Nos Status: Chronic (4) Lumb/Lumbosac Disc Degen Status: Chronic (5) Macular Degeneration Nos Status: Chronic (6) Osteoporosis Nos Status: Chronic (7) Syncope Status: Acute (8) Vertigo Status: Chronic Review of Systems Constitutional: + fatigue, + weakness Respiratory: + dyspnea on exertion, + shortness of breath Cardiac: + chest pain (left sided with CT) Abdomen: + constipation (and obstipation), + pain Musculoskeletal: + joint pain (right groin) Neurologic: + weakness All Other Systems: Reviewed and Negative Medications Current Inpatient Medications Medications (Trade) Dose Ordered Sig/Barb Route Start Time Stop Time Status Last Admin Dose Admin Al Hydrox/Mg Hydrox/Simethicone (Maalox Max Susp) 15 ml Q4H PRN PO 11/12/16 12:15 12/12/16 12:14 Magnesium Hydroxide (Milk Of Magnesia Susp) 30 ml Q12H PRN PO 11/12/16 12:15 12/12/16 12:14 Ranitidine HCl (zANTac TAB) 150 mg BID PO 11/12/16 21:00 12/12/16 20:59 11/18/16 07:53 150 MG Calcium/Vitamin D (Caltrate Plus Tab) 1 tab BID PO 11/12/16 21:00 12/12/16 20:59 11/18/16 07:54 1 TAB Albuterol/ Ipratropium (Combivent Respimat Inh) 1 puffs QID INH 11/12/16 17:00 12/12/16 16:59 11/18/16 07:54 1 PUFFS Meclizine HCl (Antivert Tab) 25 mg TID PRN PO 11/12/16 16:30 12/12/16 16:29 Nitroglycerin (Nitrostat Tab) 0.4 mg PRN PRN UT 11/12/16 16:30 12/12/16 16:29 Multivitamins/ Minerals (Multivitamin W/ Minerals Tab) 1 tab BID PO 11/12/16 21:00 12/12/16 20:59 11/18/16 07:53 1 TAB Senna/Docusate Sodium (Senokot S Tab) 3 tab DAILY PO 11/13/16 09:00 12/13/16 08:59 11/18/16 07:53 3 TAB Tramadol HCl (Ultram Tab) 50 mg BID PRN PO 11/12/16 16:30 12/12/16 16:29 11/14/16 15:46 50 MG Cholecalciferol (Vitamin D Tab) 2,000 inter.unit DAILY PO 11/13/16 09:00 12/13/16 08:59 11/18/16 07:54 2,000 INTER.UNIT Acetaminophen (Tylenol Tab) 650 mg Q4H PRN PO 11/14/16 13:45 12/14/16 13:44 Oxycodone HCl (Roxicodone Immediate Rel Tab) 5 mg Q4 PRN PO 11/14/16 13:45 11/28/16 13:44 11/15/16 20:34 5 MG Ondansetron HCl 4 mg 4 mg Q4H PRN IV 11/14/16 15:30 12/14/16 15:29 11/16/16 07:48 4 MG Norepinephrine Bitartrate/ Dextrose (Levophed Inj/ D5W 500ml) 508 ml @ 0 mls/hr Q0M PRN IV 11/15/16 11:00 12/15/16 10:59 11/18/16 09:02 18 MLS/HR Ioversol (Optiray 320) 100 ml UD PRN IV 11/15/16 11:15 11/19/16 11:14 Fentanyl Citrate 50 mcg 50 mcg Q2H PRN IV 11/15/16 18:45 11/29/16 18:44 11/18/16 04:42 50 MCG Parenteral Electrolyte Solution 1,000 ml @ 125 mls/hr Q8H IV 11/16/16 08:15 5/5/17 08:14 11/18/16 04:16 125 MLS/HR Acetaminophen 100 ml @ 400 mls/hr Q8H PRN IV 11/16/16 08:15 12/16/16 08:14 11/16/16 13:10 400 MLS/HR Pantoprazole Sodium/Syringe (Protonix Inj/ Syringe) 10 ml @ 5 mls/min DAILY@09,21 IV 11/16/16 21:00 12/16/16 20:59 11/18/16 07:54 5 MLS/MIN Vancomycin HCl (Consult) 1 ea UD PRN N/A 11/17/16 04:45 12/17/16 04:44 Piperacillin Sod/ Tazobactam Sod 1 ea 1 ea UD PRN N/A 11/17/16 04:45 12/17/16 04:44 Piperacillin Sod/ Tazobactam Sod 4.5 gm/Dextrose 120 ml @ 30 mls/hr Q8H IV 11/17/16 08:00 11/19/16 07:59 11/18/16 07:54 30 MLS/HR Amiodarone HCL/ Dextrose 200 ml @ 16.7 mls/hr [id number] IV 11/17/16 20:00 12/17/16 19:59 11/18/16 03:10 16.7 MLS/HR Vancomycin HCl/ Sodium Chloride (Vancomycin Inj/ Nss 250ml) 277 ml @ 125 mls/hr Q12H IV 11/18/16 21:00 11/19/16 19:59 Objective Vital Signs Date Time Temp Pulse Resp B/P Pulse Ox O2 Delivery O2 Flow Rate FiO2 11/18/16 10:00 86 19 107/54 94 Nasal Cannula 2.0 104/67 11/18/16 08:00 95 2.0 11/18/16 08:00 36.9 95 20 94/50 93 Nasal Cannula 2.0 92/61 11/18/16 06:15 91 24 113/57 95 11/18/16 06:00 95 21 109/68 95 11/18/16 05:45 90 18 106/53 96 11/18/16 05:30 90 19 106/53 94 11/18/16 05:15 96 15 130/74 93 11/18/16 05:00 94 17 95/53 95 11/18/16 04:15 92 17 110/60 95 11/18/16 04:00 36.7 92 18 107/61 94 11/18/16 04:00 Nasal Cannula 5.0 11/18/16 03:30 93 17 99/53 95 11/18/16 03:00 93 16 98/57 95 11/18/16 02:45 97 26 108/62 94 11/18/16 02:30 95 14 114/63 95 11/18/16 02:00 91 17 112/77 95 11/18/16 01:45 91 17 96/73 94 11/18/16 01:30 92 17 114/83 94 11/18/16 01:17 94 19 80/61 94 11/18/16 01:15 95 17 77/44 95 11/18/16 01:00 92 21 105/64 96 11/18/16 00:15 91 24 85/52 93 11/18/16 00:06 36.8 94 24 81/44 93 11/18/16 00:00 Nasal Cannula 5.0 11/18/16 00:00 93 17 75/40 92 11/17/16 23:30 96 22 102/55 94 11/17/16 23:27 99 20 108/57 95 11/17/16 23:00 97 20 83/62 96 11/17/16 22:00 36.9 98 22 90/54 95 Nasal Cannula 5.0 96/53 11/17/16 22:00 98 19 90/54 96 95/52 11/17/16 21:46 100 19 91/51 97 85/54 11/17/16 21:45 100 18 96 83/51 11/17/16 21:30 103 26 97/63 92 97/55 11/17/16 21:15 103 19 96 95/53 11/17/16 21:00 103 18 87/54 96 89/50 11/17/16 20:45 102 18 96 84/51 11/17/16 20:00 105 17 97 108/60 11/17/16 20:00 Nasal Cannula 5.0 11/17/16 20:00 36.6 102 21 95/53 94 Nasal Cannula 5.0 11/17/16 19:45 103 21 96 97/52 11/17/16 19:30 102 23 97/60 95 105/57 11/17/16 19:15 104 25 93 99/54 11/17/16 19:00 101 22 95/59 94 105/58 11/17/16 18:45 108 19 95 119/66 11/17/16 18:30 104 19 98/55 94 110/57 11/17/16 18:15 102 21 93 106/62 11/17/16 18:00 104 27 101/57 94 106/60 11/17/16 17:45 103 22 94 100/55 11/17/16 17:30 109 31 98/62 93 107/59 11/17/16 17:15 110 23 95 98/58 11/17/16 17:00 110 17 105/59 94 106/60 11/17/16 16:45 112 18 94 102/57 11/17/16 16:30 110 20 93/57 95 111/46 11/17/16 16:15 114 25 93/60 94 107/70 11/17/16 16:00 112 20 94/64 94 109/69 11/17/16 16:00 Nasal Cannula 5.0 11/17/16 16:00 36.8 111 21 93/60 94 Nasal Cannula 5.0 11/17/16 15:45 113 25 98/63 93 107/69 11/17/16 15:30 114 23 100/64 94 113/72 11/17/16 13:50 159 21 80/51 92 94/74 11/17/16 12:00 94 Nasal Cannula 5.0 11/17/16 12:00 106 25 100/58 93 126/118 Physical Exam General Appearance: WD/WN, no apparent distress Eyes: normal inspection, EOMI, sclerae normal Neck: supple, no adenopathy, no JVD, trachea midline Respiratory/Chest: lungs clear, no respiratory distress, no accessory muscle use, + decreased breath sounds (left base), + pertinent finding (left chest tenderness, chest tube site tender) Cardiovascular: regular rate, rhythm, no edema, no gallop, no JVD, no murmur Abdomen: normal bowel sounds, non tender, soft, no organomegaly Extremities: normal range of motion, non-tender, normal inspection, no pedal edema, no calf tenderness 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, no motor/sensory deficits, alert, normal mood/affect, oriented x 3 Skin: normal color, warm/dry, no rash Laboratory Results Last 24 Hours Test 11/17/16 15:00 11/18/16 04:39 11/18/16 06:25 White Blood Count 13.92 K/uL 11.56 K/uL Red Blood Count 3.85 M/uL 3.66 M/uL Hemoglobin 11.1 g/dL 10.6 g/dL Hematocrit 33.3 % 31.8 % Mean Corpuscular Volume 86.5 fL 86.9 fL Mean Corpuscular Hemoglobin 28.8 pg 29.0 pg Mean Corpuscular Hemoglobin Concent 33.3 g/dl 33.3 g/dl RDW Standard Deviation 50.0 fL 50.7 fL RDW Coefficient of Variation 15.9 % 16.0 % Platelet Count 116 K/uL 122 K/uL Mean Platelet Volume 10.0 fL 9.8 fL Sodium Level 139 mmol/L 142 mmol/L Potassium Level 3.8 mmol/L 3.9 mmol/L Chloride Level 106 mmol/L 108 mmol/L Carbon Dioxide Level 26 mmol/L 28 mmol/L Anion Gap 7.0 mmol/L 6.0 mmol/L Blood Urea Nitrogen 10 mg/dl 8 mg/dl Creatinine 0.64 mg/dl 0.62 mg/dl Est Creatinine Clear Calc Drug Dose 83.5 ml/min 86.2 ml/min Estimated GFR () 104.8 105.9 Estimated GFR (Non- 90.4 91.4 BUN/Creatinine Ratio 16.3 12.5 Random Glucose 130 mg/dl 120 mg/dl Calcium Level 7.6 mg/dl 7.4 mg/dl Ionized Calcium 1.07 mmol/l Phosphorus Level 1.9 mg/dl 1.9 mg/dl Magnesium Level 2.2 mg/dl 2.3 mg/dl Total Bilirubin 0.7 mg/dl 0.5 mg/dl Aspartate Amino Transf (AST/SGOT) 20 U/L 16 U/L Alanine Aminotransferase (ALT/SGPT) 10 U/L 14 U/L Alkaline Phosphatase 70 U/L 70 U/L Total Protein 5.2 gm/dl 5.2 gm/dl Albumin 2.1 gm/dl 2.0 gm/dl Globulin 3.1 gm/dl 3.2 gm/dl Albumin/Globulin Ratio 0.7 0.6 Prothrombin Time 11.1 SECONDS Prothromb Time International Ratio 1.0 Activated Partial Thromboplast Time 41.5 SECONDS Partial Thromboplastin Ratio 1.6 Lactic Acid Level 0.7 mmol/L Blood Gas Sample Site Art Line Bedside Blood Gas pH (LAB) 7.36 Bedside Blood Gas pCO2 (LAB) 41 mmHg Bedside Blood Gas pO2 (LAB) 76 mmHg Bedside Blood Gas HCO3 (LAB) 24 meq/L Bedside Blood Gas Total CO2 25 mEq/l Bedside Blood Gas Base Excess (LAB) -2.0 meq/L Bedside Blood Gas O2 Saturation 95.0 % Claudio Test NA Oxygen Delivery Device Cannula Assessment and Plan 71 yo female with PMH of HTN, GERD and vertigo. presented with syncope (also happened about 2 years ago) 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 patient had a pacemaker on 11/14 but unfortunately there was a complication on 11/15 with the right ventricle wire going through the ventricle she developed a pericardial tamponade and a drain was placed, then developed a left hemothorax and CT was placed subsequently developed an ileus requiring NGT decompression - Hypotension due to tamponade: resolved today, off of dobutamine, tamponade resolved with drain that was then pulled 11/17 continue arterial line for close monitoring - Left hemothorax: continue chest tube CT surgery to see this evening to determine management, VATS vs tPA through tube to dissolve clots - Acute blood loss anemia: Hb stable, did receive 4 units total, Hb 10.6 today - Cardiac tamponade: resolved with drain, hemodynamically stable, clear heart sounds today - SBO/ileus: NGT pulled today, advanced to clears still no flatus or BM increase activity and fluids - Syncope: secondary to transient complete heart block pacer on 11/14, revision of leads on 11/16, working appropriately - Paroxysmal atrial fibrillation: occurred briefly and resolved with Amiodarone cardiology recommends to continue for a month - CHRISTIAN: resolved with fluids and BP support, making adequate urine, keep rodriguez for now - Diarrhea: resolved, C diff and stool cultures negative - Leukocytosis and fevers: no clear source of infection, on Vancomycin and Zosyn blood cultures negative plan: keep in ICU, Dr. Arceo to see bill, I discussed the case with ICU team Continued [facility] stay due to: other Discharge planning: home
[2016-11-18] MEDS ORDERED: NURSING VERBAL MED ORDER ONE ×3 (12:45→21:45)
[2016-11-18] MEDS: ONDANSETRON INJ 2 MG/ML 2 ML VIAL IV PRN ×3 (14:41→22:03)
[2016-11-18] MEDS ORDERED: AMIODARONE 200 MG TAB PO ONE (16:45)
[2016-11-18] MEDS ORDERED: AMIODARONE 200 MG TAB PO SCH (21:00)
[2016-11-18] MEDS ORDERED: PROMETHAZINE HCL INJ 12.5 MG in SODIUM CHLORIDE 0.9% 50ML 50 ML IV PRN (22:00)
--- NOTE | 2016-11-18 22:24 | DIAGNOSTIC IMAGING REPORT ---
KUB HISTORY: Nausea,Vomitting COMPARISON: KUB 11/16/2016. FINDINGS: Multiple dilated loops of large and small bowel are not significantly changed. No definite pneumoperitoneum or pneumatosis. Nasogastric tube has been removed. The stomach is also gas filled but not significantly distended at this time. The left-sided chest tube in place and a small left pleural effusion. Pacemaker wires are noted. Prior cholecystectomy. Right dynamic hip screw. IMPRESSION: No significant change in the multiple dilated gas-filled loops of large and small bowel. This favors an ileus. Electronically signed by: Reece Alaniz M.D. 11/18/2016 10:22 PM Dictated Date/Time: 11/18/2016 10:20 PM
[2016-11-19] VITALS (24 sets, daily range): BP systolic 78–300; BP diastolic 43–300; PULSE 81–96; TEMP 36.2–36.9; O2SAT 93–96
[2016-11-19] MEDS: PIPERACILL/TAZOBAC IV 4.5 GM in DEXTROSE 5% 100ML IV SCH (00:19)
[2016-11-19] MEDS: FENTANYL CITRATE INJ 50 MCG/1 ML 2 ML VIAL IV PRN ×3 (03:21→21:24)
[2016-11-19] MEDS: NORMOSOL R 1,000 ML IV SCH ×2 (04:49→13:18)
[2016-11-19 06:09] LABS: ISTAT ARTERIAL BLOOD GAS HCO3 23 meq/L (19-24); ISTAT ARTERIAL BLOOD GAS PCO2 40 mmHg (35-46); ISTAT ARTERIAL BLOOD GAS PO2 65 mmHg (80-95); ISTAT ARTERIAL BLOOD GAS pH 7.37 (7.35-7.45); ISTAT CARBON DIOXIDE 24 mEq/l (24-31); ISTAT DELIVERY SYSTEM Cannula; ISTAT SITE Art Line
[2016-11-19 06:12] LABS: BASO % 0.2 %; BASO ABS # 0.02 K/uL (0-0.2); COMPLETE YES; EOS % 3.2 %; IG% 0.2 %; LYMPH % 8.5 %; LYMPH ABS # 0.72 K/uL (1.2-3.4); MEAN CELL VOLUME 88.4 fL (80-100); MEAN CORPUSCULAR HGB CONC 32.8 g/dl (32-36); MEAN PLATELET VOLUME 10.2 fL (7.4-10.4); MONO % 9.8 %; NEUT % 78.1 %; PLATELET COUNT 133 K/uL (130-400); RED BLOOD COUNT 3.62 M/uL (4.2-5.4); WHITE BLOOD COUNT 8.51 K/uL (4.8-10.8)
--- NOTE | 2016-11-19 06:20 | DIAGNOSTIC IMAGING REPORT ---
KUB CLINICAL HISTORY: Supine abdomen for nasogastric tube placement. COMPARISON STUDY: 11/18/2016 FINDINGS: A portable study was obtained. There are postsurgical changes in the right hip. There are surgical clips within the right upper quadrant consistent with a prior cholecystectomy. There is gaseous prominence of large and small bowel loops. There are no transition zones identified. There has been interval placement of a nasogastric tube which is positioned within the stomach. IMPRESSION: Interval placement of a nasogastric tube. The tube is positioned within the stomach. Electronically signed by: Danny Veras M.D. 11/19/2016 6:18 AM Dictated Date/Time: 11/19/2016 6:16 AM
[2016-11-19 06:56] LABS: BUN/CREATININE RATIO 12.2 (10-20); CALCIUM 7.7 mg/dl (8.5-10.1); CREATININE 0.6 mg/dl (0.60-1.20); MAGNESIUM 2.5 mg/dl (1.8-2.4); POTASSIUM 3.9 mmol/L (3.5-5.1)
[2016-11-19 06:57] LABS: ALB/GLOB RATIO 0.6 (0.9-2); PHOSPHORUS 1.8 mg/dl (2.5-4.9)
--- NOTE | 2016-11-19 07:20 | Surgery Progress Note ---
Subjective Date of Service: Nov 19, 2016. Pt. state breathing hurts with deep breaths due to chest tube, but she denies dyspnea. Objective Vitals Date Time Temp Pulse Resp B/P Pulse Ox O2 Delivery O2 Flow Rate FiO2 11/19/16 06:00 84 22 115/70 95 Nasal Cannula 2.0 107/68 11/19/16 04:00 94 2.0 11/19/16 04:00 36.8 85 16 90/47 94 Nasal Cannula 2.0 101/59 11/19/16 02:00 89 16 78/43 93 Nasal Cannula 2.0 93/50 11/19/16 00:00 36.8 96 15 101/54 95 Nasal Cannula 2.0 108/59 11/18/16 23:59 94 2.0 11/18/16 22:00 90 18 110/56 95 Nasal Cannula 2.0 110/68 11/18/16 20:00 94 2.0 11/18/16 20:00 36.9 90 20 92/51 93 Nasal Cannula 2.0 99/61 11/18/16 18:00 98 20 104/55 97 Nasal Cannula 2.0 106/59 11/18/16 16:00 2.0 11/18/16 16:00 91 20 86/48 91 Nasal Cannula 2.0 95/62 11/18/16 14:09 87 20 102/54 94 Nasal Cannula 2.0 111/68 11/18/16 12:00 94 2.0 11/18/16 12:00 36.5 86 20 85/46 94 Nasal Cannula 2.0 93/58 11/18/16 10:00 86 19 107/54 94 Nasal Cannula 2.0 104/67 11/18/16 08:00 95 2.0 11/18/16 08:00 36.9 95 20 94/50 93 Nasal Cannula 2.0 92/61 Physical Exam General: No distress CV: + RRR Pulmonary: + pertinent finding (decreased at bases L>R), No accessory muscle use, No respiratory distress Neurologic: + alert & oriented x 3 Radiology CXR--no significant change--opacity at left base Drains / Tubes chest tube (left sided, 200 cc last shift) Assessment & Plan 71 year old female with right ventricular perforation following PPM -cardiac tamponade resolved with pericardial drain--mgt. per ICU/cardiology -left hemothorax: -continue CT drainage (do not remove without order from Dr. Arceo) -will consider TPA placement in chest tube or alternative procedure (VATS) to evacuate residual clot in left hemithorax
--- NOTE | 2016-11-19 07:37 | DIAGNOSTIC IMAGING REPORT ---
CHEST ONE VIEW PORTABLE CLINICAL HISTORY: Left hemothorax COMPARISON STUDY: 11/18/2016 FINDINGS: There is a left subclavian dual-chamber central venous pacemaker present. A nasogastric tube, left-sided chest tube, and right internal jugular central venous catheter are again visualized. There is no pneumothorax. There is a persistent left pleural effusion with associated left basilar atelectasis/consolidation. Right medial basilar opacities, also remain stable. IMPRESSION: Stable findings. Electronically signed by: Danny Veras M.D. 11/19/2016 7:35 AM Dictated Date/Time: 11/19/2016 7:18 AM
[2016-11-19] MEDS ORDERED: POTASSIUM PHOS 3 MMOL/1 ML INFUSION IV STA ×2 (07:44→08:36)
[2016-11-19] MEDS ORDERED: POTASSIUM PHOSPHATE INJ 21 MMOL in SODIUM CHLORIDE 0.9% 500ML 500 ML IV SCH (08:00)
[2016-11-19] MEDS ORDERED: SODIUM PHOSPHATE INJ 21 MMOL in SODIUM CHLORIDE 0.9% 500ML 500 ML IV SCH (08:00)
[2016-11-19] MEDS: IPRATROPIUM BROMIDE/ALBUTEROL respimat INH INH SCH ×4 (08:08→21:24)
[2016-11-19] MEDS: PANTOprazole INJ 40 MG in SYRINGE 0 ML IV SCH ×2 (08:23→21:24)
[2016-11-19] MEDS: VANCOMYCIN INJ 1,350 MG in SODIUM CHLORIDE 0.9% 250ML 250 ML IV SCH (08:23)
[2016-11-19] MEDS: CEROVITE ADV FORMULA TAB PO SCH ×2 (09:00→21:24)
[2016-11-19] MEDS ORDERED: AMIODARONE IV BOLUS / DRIP IV STA (10:15)
[2016-11-19] MEDS ORDERED: AMIODARONE / D5W 100 ML IV ONE (10:30)
[2016-11-19] MEDS ORDERED: AMIODARONE / D5W 200 ML IV SCH ×2 (10:45→17:00)
[2016-11-19] MEDS ORDERED: NURSING VERBAL MED ORDER ONE (11:15)
[2016-11-19] MEDS: AMIODARONE / D5W 200 ML IV SCH ×2 (11:22→23:28)
--- NOTE | 2016-11-19 11:28 | Surgery Progress Note ---
Surgery Progress Note Date of Service Nov 19, 2016. Subjective NG replaced last night due to vomiting on clear liquids. Continuing to pass flatus but minimal bowel movement. KUB shows ileus pattern. No nausea currently. Objective Vital Signs: Date Time Temp Pulse Resp B/P Pulse Ox O2 Delivery O2 Flow Rate FiO2 11/19/16 09:30 86 19 118/61 94 Nasal Cannula 2.0 96/56 11/19/16 09:00 87 28 95 11/19/16 08:30 88 16 99/60 95 11/19/16 08:00 87 17 109/57 95 11/19/16 08:00 95 Nasal Cannula 2.0 11/19/16 07:30 87 17 118/61 95 Nasal Cannula 2.0 11/19/16 07:00 36.9 90 15 101/90 96 11/19/16 06:00 84 22 115/70 95 Nasal Cannula 2.0 107/68 11/19/16 04:00 94 2.0 11/19/16 04:00 36.8 85 16 90/47 94 Nasal Cannula 2.0 101/59 11/19/16 02:00 89 16 78/43 93 Nasal Cannula 2.0 93/50 11/19/16 00:00 36.8 96 15 101/54 95 Nasal Cannula 2.0 108/59 11/18/16 23:59 94 2.0 11/18/16 22:00 90 18 110/56 95 Nasal Cannula 2.0 110/68 11/18/16 20:00 94 2.0 11/18/16 20:00 36.9 90 20 92/51 93 Nasal Cannula 2.0 99/61 11/18/16 18:00 98 20 104/55 97 Nasal Cannula 2.0 106/59 11/18/16 16:00 2.0 11/18/16 16:00 91 20 86/48 91 Nasal Cannula 2.0 95/62 11/18/16 14:09 87 20 102/54 94 Nasal Cannula 2.0 111/68 11/18/16 12:00 94 2.0 11/18/16 12:00 36.5 86 20 85/46 94 Nasal Cannula 2.0 93/58 General Appearance: no apparent distress Respiratory/Chest: no respiratory distress Cardiovascular: regular rate, rhythm Abdomen: normal bowel sounds, non tender, non distended, soft Laboratory Results: Results Past 24 Hours Test 11/19/16 05:50 11/19/16 05:56 Range/Units White Blood Count 8.51 4.8-10.8 K/uL Red Blood Count 3.62 4.2-5.4 M/uL Hemoglobin 10.5 12.0-16.0 g/dL Hematocrit 32.0 37-47 % Mean Corpuscular Volume 88.4 80-100 fL Mean Corpuscular Hemoglobin 29.0 25-34 pg Mean Corpuscular Hemoglobin Concent 32.8 32-36 g/dl Platelet Count 133 130-400 K/uL Mean Platelet Volume 10.2 7.4-10.4 fL Neutrophils (%) (Auto) 78.1 % Lymphocytes (%) (Auto) 8.5 % Monocytes (%) (Auto) 9.8 % Eosinophils (%) (Auto) 3.2 % Basophils (%) (Auto) 0.2 % Neutrophils # (Auto) 6.65 1.4-6.5 K/uL Lymphocytes # (Auto) 0.72 1.2-3.4 K/uL Monocytes # (Auto) 0.83 0.11-0.59 K/uL Eosinophils # (Auto) 0.27 0-0.5 K/uL Basophils # (Auto) 0.02 0-0.2 K/uL RDW Standard Deviation 51.9 36.4-46.3 fL RDW Coefficient of Variation 16.0 11.5-14.5 % Immature Granulocyte % (Auto) 0.2 % Immature Granulocyte # (Auto) 0.02 0.00-0.02 K/uL Sodium Level 142 136-145 mmol/L Potassium Level 3.9 3.5-5.1 mmol/L Chloride Level 108 98-107 mmol/L Carbon Dioxide Level 26 21-32 mmol/L Anion Gap 8.0 3-11 mmol/L Blood Urea Nitrogen 7 7-18 mg/dl Creatinine 0.60 0.60-1.20 mg/dl Est Creatinine Clear Calc Drug Dose 90.4 ml/min Estimated GFR () 107.0 Estimated GFR (Non- 92.4 BUN/Creatinine Ratio 12.2 10-20 Random Glucose 88 70-99 mg/dl Lactic Acid Level 0.7 0.4-2.0 mmol/L Calcium Level 7.7 8.5-10.1 mg/dl Ionized Calcium 1.05 1.12-1.32 mmol/l Phosphorus Level 1.8 2.5-4.9 mg/dl Magnesium Level 2.5 1.8-2.4 mg/dl Total Bilirubin 0.7 0.2-1 mg/dl Aspartate Amino Transf (AST/SGOT) 14 15-37 U/L Alanine Aminotransferase (ALT/SGPT) 11 12-78 U/L Alkaline Phosphatase 75 45-117 U/L Total Protein 5.3 6.4-8.2 gm/dl Albumin 2.0 3.4-5.0 gm/dl Globulin 3.3 2.5-4.0 gm/dl Albumin/Globulin Ratio 0.6 0.9-2 Blood Gas Sample Site Art Line Bedside Blood Gas pH (LAB) 7.37 7.35-7.45 Bedside Blood Gas pCO2 (LAB) 40 35-46 mmHg Bedside Blood Gas pO2 (LAB) 65 80-95 mmHg Bedside Blood Gas HCO3 (LAB) 23 19-24 meq/L Bedside Blood Gas Total CO2 24 24-31 mEq/l Bedside Blood Gas Base Excess (LAB) -3.0 -9-1.8 meq/L Bedside Blood Gas O2 Saturation 92.0 90-95 % Claudio Test NA Oxygen Delivery Device Cannula Assessment & Plan Ileus - slow to resolve. Will try ng decompression again for 1-2 days. Continuing to pass flatus. If no improvement, consider TPN as she states she has not eaten since last Monday.
--- NOTE | 2016-11-19 12:35 | Critical Care Progress Note ---
Critical Care Progress Note Date of Service Nov 19, 2016. Attending Dr. Steele Subjective Vomited twice last night so NGT was reinserted No BM yet but starts having a little flatulence Feels better otherwise, still with some left sided chest pain with deeper breathing Off pressors today Remains in NSR Objective GENERAL: Patient is in no acute distress. HEENT: mucous membranes moist, no nasal congestion, no scleral icterus. NECK: No stridor, trachea is midline LUNGS: decreased breath sounds on left, left sided chest tube HEART: Without murmurs gallops or rubs, normal sinus rhythm ABDOMEN: Soft, distended, tympanic, non-tender EXTREMITIES: No cyanosis or edema, Right IJ triple lumen, Right axillary arterial line NEUROLOGIC: Oriented x 3, no acute motor or sensory deficits, no focal weakness. Current SOFA Score SOFA Score Response (Comments) Value PaO2/FiO2 (mmHg) < 300 2 Platelets (x10) < 150 1 Level of Hypotension MAP less than 70 1 Total 4 Assessment & Plan 71-year-old female with past medical history of hypertension and vertigo presented after a syncopal episode after having a bowel movement. EKG revealed a transient complete heart block. Status post dual-chamber pacemaker placed on11/14 and was found to have a pericardial effusion secondary to puncture of the right ventricular wall due to a lead from the pacemaker and had successful placement of pericardial drain. CT abdomen and pelvis revealed a left-sided moderate large hemothorax and a chest tube was placed to suction. She received a total of 4 units of PRBCs. Had an episode of coffee-ground emesis , started on Protonix and NG tube was placed. She had a successful revision of her pacemaker leads . After the procedure she was noted to have abdominal distention and a CT abdomen and pelvis was ordered after a flatplate revealed dilated loops of bowel. Abdominal distention somewhat better today though she still hasn't been passing gas or had a bowel movement. Pericardial drain and right femoral sheath were removed. Right-sided internal jugular triple-lumen catheter and right axillary arterial line were placed. NG tube was removed and diet has been advanced to clear liquids yesterday, but she required reinsertion on NGT for recurrent vomiting. Problems: Complete heart block, s/p permanent pacemaker insertion S/p hemorrhagic pericardial effusion with tamponade. S/p pericardial drain now removed Left hemothorax. S/p left chest tube Ileus Paroxysmal a-fib Shock - resolved Plan: BODY BUMPER: Analgesia as needed, prn fentanyl and acetaminophen Unable to institute stroke prophylaxis for a-fib secondary to recent hemorrhagic events Cardiac: Off pressors today No further a-fib episodes Pericardial drain removed, no pacemaker issues. I only observed intrinsic rhythm so far Change po amiodarone back to iv infusion since she is NPO secondary to ileus May require it for a month as outpatient as well to suppress the a-fib Pulmonary: Chest tube still draining slowly, fluid is less bloody though. 200 ml /24 hrs For VATS vs lysis of clot Oxygenation improved CXR reviewed today GI: Keep NGT in for now, NPO Surgery following Initially had coffee ground material in the vomitus, no further episodes though. Off Protonix drip, continue bid Protonix Renal: Diuresing well Overall in positive fluid balance Replenish electrolytes Continue Normosol @ 75 ml/hr ID: We can stop the Abx today, I believe the fevers were related to hemothorax, SIRS without infectious cause DVT prophylaxis: SCD. No heparin for now OOB to chair, PT/OT Critical care time spent greater than 35 minutes Consults & Procedures Consultants: Cardiology, thoracic surgery, general surgery Procedures: 11/14/16 - PPM 11/15/16 - Pericardiocentesis with pericardial drain 11/15/16 - Left chest tube 28 Fr 11/16/16- PPM revision 11/17/2016- removal of right femoral sheath, placement of right jugular triple- lumen catheter, right axillary arterial line 11/18/2016- NG tube removed in AM, reinserted in PM Data Medications: Current Inpatient Medications Medications (Trade) Dose Ordered Sig/Barb Route Start Time Stop Time Status Last Admin Dose Admin Al Hydrox/Mg Hydrox/Simethicone (Maalox Max Susp) 15 ml Q4H PRN PO 11/12/16 12:15 12/12/16 12:14 Magnesium Hydroxide (Milk Of Magnesia Susp) 30 ml Q12H PRN PO 11/12/16 12:15 12/12/16 12:14 Albuterol/ Ipratropium (Combivent Respimat Inh) 1 puffs QID INH 11/12/16 17:00 12/12/16 16:59 11/19/16 08:08 1 PUFFS Meclizine HCl (Antivert Tab) 25 mg TID PRN PO 11/12/16 16:30 12/12/16 16:29 Nitroglycerin (Nitrostat Tab) 0.4 mg PRN PRN UT 11/12/16 16:30 12/12/16 16:29 Multivitamins/ Minerals (Multivitamin W/ Minerals Tab) 1 tab BID PO 11/12/16 21:00 12/12/16 20:59 11/18/16 21:24 1 TAB Tramadol HCl (Ultram Tab) 50 mg BID PRN PO 11/12/16 16:30 12/12/16 16:29 11/14/16 15:46 50 MG Acetaminophen (Tylenol Tab) 650 mg Q4H PRN PO 11/14/16 13:45 12/14/16 13:44 Oxycodone HCl (Roxicodone Immediate Rel Tab) 5 mg Q4 PRN PO 11/14/16 13:45 11/28/16 13:44 11/15/16 20:34 5 MG Ondansetron HCl 4 mg 4 mg Q4H PRN IV 11/14/16 15:30 12/14/16 15:29 11/18/16 22:03 4 MG Norepinephrine Bitartrate/ Dextrose (Levophed Inj/ D5W 500ml) 508 ml @ 0 mls/hr Q0M PRN IV 11/15/16 11:00 12/15/16 10:59 11/18/16 09:02 18 MLS/HR Fentanyl Citrate 50 mcg 50 mcg Q2H PRN IV 11/15/16 18:45 11/29/16 18:44 11/19/16 11:27 50 MCG Parenteral Electrolyte Solution 1,000 ml @ 75 mls/hr [id number] IV 11/16/16 08:15 12/16/16 08:14 11/19/16 04:49 75 MLS/HR Acetaminophen 100 ml @ 400 mls/hr Q8H PRN IV 11/16/16 08:15 12/16/16 08:14 11/16/16 13:10 400 MLS/HR Pantoprazole Sodium 40 mg/ Syringe 10 ml @ 5 mls/min DAILY@, IV 11/16/16 21:00 12/16/16 20:59 11/19/16 08:23 5 MLS/MIN Promethazine HCl 12.5 mg/Sodium Chloride 50.5 ml @ 202 mls/hr Q6H PRN IV 11/18/16 22:00 12/18/16 21:59 Amiodarone HCL/ Dextrose (Nexterone / D5w) 200 ml @ 16.7 mls/hr [id number] IV 11/19/16 11:15 12/19/16 11:14 11/19/16 11:22 16.7 MLS/HR I & O: 24-Hour Column 11/19/16 08:00 Intake Total 3642 ml Output Total 1755 ml Balance 1887 ml Vital Signs: Date Time Temp Pulse Resp B/P Pulse Ox O2 Delivery O2 Flow Rate FiO2 11/19/16 09:30 86 19 118/61 94 Nasal Cannula 2.0 96/56 11/19/16 09:00 87 28 95 11/19/16 08:30 88 16 99/60 95 11/19/16 08:00 87 17 109/57 95 11/19/16 08:00 95 Nasal Cannula 2.0 11/19/16 07:30 87 17 118/61 95 Nasal Cannula 2.0 11/19/16 07:00 36.9 90 15 101/90 96 11/19/16 06:00 84 22 115/70 95 Nasal Cannula 2.0 107/68 11/19/16 04:00 94 2.0 11/19/16 04:00 36.8 85 16 90/47 94 Nasal Cannula 2.0 101/59 11/19/16 02:00 89 16 78/43 93 Nasal Cannula 2.0 93/50 11/19/16 00:00 36.8 96 15 101/54 95 Nasal Cannula 2.0 108/59 11/18/16 23:59 94 2.0 11/18/16 22:00 90 18 110/56 95 Nasal Cannula 2.0 110/68 11/18/16 20:00 94 2.0 11/18/16 20:00 36.9 90 20 92/51 93 Nasal Cannula 2.0 99/61 11/18/16 18:00 98 20 104/55 97 Nasal Cannula 2.0 106/59 11/18/16 16:00 2.0 11/18/16 16:00 91 20 86/48 91 Nasal Cannula 2.0 95/62 11/18/16 14:09 87 20 102/54 94 Nasal Cannula 2.0 111/68 Laboratory Results: Last 24 Hours Test 11/19/16 05:50 11/19/16 05:56 White Blood Count 8.51 K/uL Red Blood Count 3.62 M/uL Hemoglobin 10.5 g/dL Hematocrit 32.0 % Mean Corpuscular Volume 88.4 fL Mean Corpuscular Hemoglobin 29.0 pg Mean Corpuscular Hemoglobin Concent 32.8 g/dl Platelet Count 133 K/uL Mean Platelet Volume 10.2 fL Neutrophils (%) (Auto) 78.1 % Lymphocytes (%) (Auto) 8.5 % Monocytes (%) (Auto) 9.8 % Eosinophils (%) (Auto) 3.2 % Basophils (%) (Auto) 0.2 % Neutrophils # (Auto) 6.65 K/uL Lymphocytes # (Auto) 0.72 K/uL Monocytes # (Auto) 0.83 K/uL Eosinophils # (Auto) 0.27 K/uL Basophils # (Auto) 0.02 K/uL RDW Standard Deviation 51.9 fL RDW Coefficient of Variation 16.0 % Immature Granulocyte % (Auto) 0.2 % Immature Granulocyte # (Auto) 0.02 K/uL Sodium Level 142 mmol/L Potassium Level 3.9 mmol/L Chloride Level 108 mmol/L Carbon Dioxide Level 26 mmol/L Anion Gap 8.0 mmol/L Blood Urea Nitrogen 7 mg/dl Creatinine 0.60 mg/dl Est Creatinine Clear Calc Drug Dose 90.4 ml/min Estimated GFR () 107.0 Estimated GFR (Non- 92.4 BUN/Creatinine Ratio 12.2 Random Glucose 88 mg/dl Lactic Acid Level 0.7 mmol/L Calcium Level 7.7 mg/dl Ionized Calcium 1.05 mmol/l Phosphorus Level 1.8 mg/dl Magnesium Level 2.5 mg/dl Total Bilirubin 0.7 mg/dl Aspartate Amino Transf (AST/SGOT) 14 U/L Alanine Aminotransferase (ALT/SGPT) 11 U/L Alkaline Phosphatase 75 U/L Total Protein 5.3 gm/dl Albumin 2.0 gm/dl Globulin 3.3 gm/dl Albumin/Globulin Ratio 0.6 Blood Gas Sample Site Art Line Bedside Blood Gas pH (LAB) 7.37 Bedside Blood Gas pCO2 (LAB) 40 mmHg Bedside Blood Gas pO2 (LAB) 65 mmHg Bedside Blood Gas HCO3 (LAB) 23 meq/L Bedside Blood Gas Total CO2 24 mEq/l Bedside Blood Gas Base Excess (LAB) -3.0 meq/L Bedside Blood Gas O2 Saturation 92.0 % Claudio Test NA Oxygen Delivery Device Cannula
[2016-11-19 13:05] LABS: ISTAT ARTERIAL BLOOD GAS HCO3 22 meq/L (19-24); ISTAT ARTERIAL BLOOD GAS PCO2 38 mmHg (35-46); ISTAT ARTERIAL BLOOD GAS PO2 63 mmHg (80-95); ISTAT ARTERIAL BLOOD GAS pH 7.38 (7.35-7.45); ISTAT CARBON DIOXIDE 23 mEq/l (24-31); ISTAT DELIVERY SYSTEM Cannula; ISTAT SITE Art Line
[2016-11-19] MEDS ORDERED: VANCOMYCIN TROUGH SCH (13:30)
--- NOTE | 2016-11-19 15:47 | Progress Note ---
Subjective Date of Service: Nov 19, 2016. Subjective Pt evaluation today including: conversation w/ patient, conversation w/ family , physical exam, lab review, review of studies, conversation w/ information resource consultant, review of inpatient medication list Pain: moderate left chest pain, less abdominal pain PO Intake: poor, NPO with NGT back in place Voiding: rodriguez catheter in place patient sitting in chair today, feeling stronger and looking better had NGT placed again last night due to vomiting and constant nausea symptoms resolved completely with NGT breathing stable waiting til Monday for decision from CT surgery about chest tube management Problem List Medical Problems: (1) Asthma, Unspecified Status: Chronic (2) Esophageal Reflux Status: Chronic (3) Hypertension Nos Status: Chronic (4) Lumb/Lumbosac Disc Degen Status: Chronic (5) Macular Degeneration Nos Status: Chronic (6) Osteoporosis Nos Status: Chronic (7) Syncope Status: Acute (8) Vertigo Status: Chronic Review of Systems Constitutional: + fatigue, + weakness Respiratory: + dyspnea on exertion, + shortness of breath Cardiac: + chest pain Abdomen: + nausea, + pain Neurologic: + balance problems, + weakness All Other Systems: Reviewed and Negative Medications Current Inpatient Medications Medications (Trade) Dose Ordered Sig/Barb Route Start Time Stop Time Status Last Admin Dose Admin Al Hydrox/Mg Hydrox/Simethicone (Maalox Max Susp) 15 ml Q4H PRN PO 11/12/16 12:15 12/12/16 12:14 Magnesium Hydroxide (Milk Of Magnesia Susp) 30 ml Q12H PRN PO 11/12/16 12:15 12/12/16 12:14 Albuterol/ Ipratropium (Combivent Respimat Inh) 1 puffs QID INH 11/12/16 17:00 12/12/16 16:59 11/19/16 13:18 1 PUFFS Meclizine HCl (Antivert Tab) 25 mg TID PRN PO 11/12/16 16:30 12/12/16 16:29 Nitroglycerin (Nitrostat Tab) 0.4 mg PRN PRN UT 11/12/16 16:30 12/12/16 16:29 Multivitamins/ Minerals (Multivitamin W/ Minerals Tab) 1 tab BID PO 11/12/16 21:00 12/12/16 20:59 11/18/16 21:24 1 TAB Tramadol HCl (Ultram Tab) 50 mg BID PRN PO 11/12/16 16:30 12/12/16 16:29 11/14/16 15:46 50 MG Acetaminophen (Tylenol Tab) 650 mg Q4H PRN PO 11/14/16 13:45 12/14/16 13:44 Oxycodone HCl (Roxicodone Immediate Rel Tab) 5 mg Q4 PRN PO 11/14/16 13:45 11/28/16 13:44 11/15/16 20:34 5 MG Ondansetron HCl 4 mg 4 mg Q4H PRN IV 11/14/16 15:30 12/14/16 15:29 11/18/16 22:03 4 MG Norepinephrine Bitartrate/ Dextrose (Levophed Inj/ D5W 500ml) 508 ml @ 0 mls/hr Q0M PRN IV 11/15/16 11:00 12/15/16 10:59 11/18/16 09:02 18 MLS/HR Fentanyl Citrate 50 mcg 50 mcg Q2H PRN IV 11/15/16 18:45 11/29/16 18:44 11/19/16 11:27 50 MCG Parenteral Electrolyte Solution 1,000 ml @ 75 mls/hr [id number] IV 11/16/16 08:15 12/16/16 08:14 11/19/16 04:49 75 MLS/HR Acetaminophen 100 ml @ 400 mls/hr Q8H PRN IV 11/16/16 08:15 12/16/16 08:14 11/16/16 13:10 400 MLS/HR Pantoprazole Sodium 40 mg/ Syringe 10 ml @ 5 mls/min DAILY@09,21 IV 11/16/16 21:00 12/16/16 20:59 11/19/16 08:23 5 MLS/MIN Promethazine HCl 12.5 mg/Sodium Chloride 50.5 ml @ 202 mls/hr Q6H PRN IV 11/18/16 22:00 12/18/16 21:59 Amiodarone HCL/ Dextrose (Nexterone / D5w) 200 ml @ 16.7 mls/hr [id number] IV 11/19/16 11:15 12/19/16 11:14 11/19/16 11:22 16.7 MLS/HR Objective Vital Signs Date Time Temp Pulse Resp B/P Pulse Ox O2 Delivery O2 Flow Rate FiO2 11/19/16 15:00 90 15 111/61 93 Nasal Cannula 2.0 11/19/16 14:00 87 17 120/61 95 Nasal Cannula 2.0 11/19/16 12:00 36.2 86 22 100/52 11/19/16 12:00 95 Nasal Cannula 2.0 11/19/16 11:00 84 22 99/51 95 Nasal Cannula 2.0 11/19/16 10:00 86 20 102/54 96 Nasal Cannula 2.0 11/19/16 09:30 86 19 118/61 94 Nasal Cannula 2.0 96/56 11/19/16 09:00 87 28 95 11/19/16 08:30 88 16 99/60 95 11/19/16 08:00 87 17 109/57 95 11/19/16 08:00 95 Nasal Cannula 2.0 11/19/16 07:30 87 17 118/61 95 Nasal Cannula 2.0 11/19/16 07:00 36.9 90 15 101/90 96 11/19/16 06:00 84 22 115/70 95 Nasal Cannula 2.0 107/68 11/19/16 04:00 94 2.0 11/19/16 04:00 36.8 85 16 90/47 94 Nasal Cannula 2.0 101/59 11/19/16 02:00 89 16 78/43 93 Nasal Cannula 2.0 93/50 11/19/16 00:00 36.8 96 15 101/54 95 Nasal Cannula 2.0 108/59 11/18/16 23:59 94 2.0 11/18/16 22:00 90 18 110/56 95 Nasal Cannula 2.0 110/68 11/18/16 20:00 94 2.0 11/18/16 20:00 36.9 90 20 92/51 93 Nasal Cannula 2.0 99/61 11/18/16 18:00 98 20 104/55 97 Nasal Cannula 2.0 106/59 11/18/16 16:00 2.0 11/18/16 16:00 91 20 86/48 91 Nasal Cannula 2.0 95/62 Physical Exam General Appearance: WD/WN, no apparent distress Eyes: normal inspection, EOMI, sclerae normal Neck: supple, no adenopathy, no JVD, trachea midline Respiratory/Chest: no respiratory distress, no accessory muscle use, + decreased breath sounds (left base), + pertinent finding (left chest tender, CT in place) Cardiovascular: regular rate, rhythm, no edema, no gallop, no JVD, no murmur Abdomen: non tender, soft, no organomegaly, + abnormal bowel sounds (hypoactive ) Extremities: normal range of motion, non-tender, normal inspection, no pedal edema, no calf tenderness, pelvis stable Neurologic/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 A nasogastric tube, left-sided chest tube, and right internal jugular central venous catheter are again visualized. There is no pneumothorax. There is a persistent left pleural effusion with associated left basilar atelectasis/consolidation. Right medial basilar opacities, also remain stable. IMPRESSION: Stable findings. Last 24 Hours Test 11/19/16 05:50 11/19/16 05:56 11/19/16 12:51 White Blood Count 8.51 K/uL Red Blood Count 3.62 M/uL Hemoglobin 10.5 g/dL Hematocrit 32.0 % Mean Corpuscular Volume 88.4 fL Mean Corpuscular Hemoglobin 29.0 pg Mean Corpuscular Hemoglobin Concent 32.8 g/dl Platelet Count 133 K/uL Mean Platelet Volume 10.2 fL Neutrophils (%) (Auto) 78.1 % Lymphocytes (%) (Auto) 8.5 % Monocytes (%) (Auto) 9.8 % Eosinophils (%) (Auto) 3.2 % Basophils (%) (Auto) 0.2 % Neutrophils # (Auto) 6.65 K/uL Lymphocytes # (Auto) 0.72 K/uL Monocytes # (Auto) 0.83 K/uL Eosinophils # (Auto) 0.27 K/uL Basophils # (Auto) 0.02 K/uL RDW Standard Deviation 51.9 fL RDW Coefficient of Variation 16.0 % Immature Granulocyte % (Auto) 0.2 % Immature Granulocyte # (Auto) 0.02 K/uL Sodium Level 142 mmol/L Potassium Level 3.9 mmol/L Chloride Level 108 mmol/L Carbon Dioxide Level 26 mmol/L Anion Gap 8.0 mmol/L Blood Urea Nitrogen 7 mg/dl Creatinine 0.60 mg/dl Est Creatinine Clear Calc Drug Dose 90.4 ml/min Estimated GFR () 107.0 Estimated GFR (Non- 92.4 BUN/Creatinine Ratio 12.2 Random Glucose 88 mg/dl Lactic Acid Level 0.7 mmol/L Calcium Level 7.7 mg/dl Ionized Calcium 1.05 mmol/l Phosphorus Level 1.8 mg/dl Magnesium Level 2.5 mg/dl Total Bilirubin 0.7 mg/dl Aspartate Amino Transf (AST/SGOT) 14 U/L Alanine Aminotransferase (ALT/SGPT) 11 U/L Alkaline Phosphatase 75 U/L Total Protein 5.3 gm/dl Albumin 2.0 gm/dl Globulin 3.3 gm/dl Albumin/Globulin Ratio 0.6 Blood Gas Sample Site Art Line Art Line Bedside Blood Gas pH (LAB) 7.37 7.38 Bedside Blood Gas pCO2 (LAB) 40 mmHg 38 mmHg Bedside Blood Gas pO2 (LAB) 65 mmHg 63 mmHg Bedside Blood Gas HCO3 (LAB) 23 meq/L 22 meq/L Bedside Blood Gas Total CO2 24 mEq/l 23 mEq/l Bedside Blood Gas Base Excess (LAB) -3.0 meq/L -3.0 meq/L Bedside Blood Gas O2 Saturation 92.0 % 91.0 % Claudio Test NA NA Oxygen Delivery Device Cannula Cannula Assessment and Plan 71 yo female with PMH of HTN, GERD and vertigo. presented with syncope (also happened about 2 years ago) 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 patient had a pacemaker on 11/14 but unfortunately there was a complication on 11/15 with the right ventricle wire going through the ventricle she developed a pericardial tamponade and a drain was placed, then developed a left hemothorax and CT was placed subsequently developed an ileus requiring NGT decompression - Hypotension due to tamponade: resolved, off of dobutamine, tamponade resolved with drain that was then pulled 11/17 continue arterial line for close monitoring - Left hemothorax: continue chest tube CT surgery to determine plan for VATS, tPA on Monday, keep CT in place - Acute blood loss anemia: Hb stable, did receive 4 units total - Cardiac tamponade: resolved with drain, hemodynamically stable, clear heart sounds today - SBO/ileus: NGT pulled 11/18, advanced to clears, then with repeat nausea and vomiting over night and NGT placed again + flatus this AM, no BM, sips of clears today - Syncope: secondary to transient complete heart block pacer on 11/14, revision of leads on 11/16, working appropriately - Paroxysmal atrial fibrillation: occurred briefly and resolved with Amiodarone cardiology recommends to continue for a month - CHRISTIAN: resolved with fluids and BP support, making adequate urine, keep rodriguez for now - Diarrhea: resolved, C diff and stool cultures negative - Leukocytosis and fevers: no clear source of infection, on Vancomycin and Zosyn blood cultures negative plan: keep in ICU, Dr. Arceo to see Monday, I discussed the case with Dr. Steele Continued [facility] stay due to: other Discharge planning: home
--- NOTE | 2016-11-19 19:22 | CARDIOLOGY PROGRESS NOTE ---
DATE: 11/19/2016 SUBJECTIVE: This morning, Mrs. Villegas claims to be feeling somewhat better. She did have an episode of vomiting last night, required NG tube reinsertion. This morning abdomen still feels somewhat quezy. She continues to have precordial and left-sided chest discomfort, worse with deep inspiration. She was up in a chair yesterday for an extended period of time, claims to have felt well. PHYSICAL EXAMINATION: GENERAL: She was alert and oriented, mood and affect appeared normal. VITAL SIGNS: Include blood pressure 106/72 with a pulse of 85. LUNGS: Auscultation of both lung apices reveal them to be clear. There were some crackles bilaterally and some upper airway congestion on exam. CARDIAC: Auscultation of her heart did not reveal any rubs. ABDOMEN: Relatively soft and nontender. LABORATORY STUDIES: Today included a white cell count of 8.5, hemoglobin of 10.5, platelet count was 133. Sodium was 142, potassium was 3.9, BUN was 7 and creatinine was 0.6. The patient's chest tube output over the past 24 hours was 200 mL. I reviewed a chest x-ray obtained today which suggested better aeration of the left lung, pacemaker leads appeared to be stable. Review of her telemetry revealed only occasional PVCs without additional episodes of atrial fibrillation. ASSESSMENT AND PLAN: 1. Complete heart block. No additional episodes of complete heart block. Normally functioning pacemaker with stable lead position. 2. Right ventricle perforation. The patient had her pericardial drain removed 2 days ago, hemodynamically she appears to be improving. 3. Left hemothorax still some drainage, but generally speaking slower. Aeration of lung appears better on chest x-ray, appreciate the input by the thoracic surgery team, possible VATS on Monday versus more conservative management. 4. Fevers, no additional fevers since changing the femoral line or removal of pericardial strain. 5. Atrial fibrillation. No additional episodes. The patient has been maintained on amiodarone, switched back to an infusion due to her n.p.o. status. 6. Ileus, still being managed conservatively with NG suction. She is passing flatus. Plan may be to implant the NG tube and attempt feeding again tomorrow. 7. Hemodynamics. The patient is currently off inotropic infusion and blood pressure still improving. [facility]
[2016-11-20] VITALS (29 sets, daily range): BP systolic 74–127; BP diastolic 51–95; PULSE 77–94; TEMP 36.5–37; O2SAT 92–97
[2016-11-20] MEDS: NORMOSOL R 1,000 ML IV SCH ×2 (03:41→16:15)
[2016-11-20 05:32] LABS: HEMATOCRIT 30.5 % (37-47); MEAN CELL VOLUME 88.4 fL (80-100); MEAN CORPUSCULAR HEMOGLOBIN 27.8 pg (25-34); MEAN CORPUSCULAR HGB CONC 31.5 g/dl (32-36); MEAN PLATELET VOLUME 9.2 fL (7.4-10.4); PLATELET COUNT 124 K/uL (130-400); RED BLOOD COUNT 3.45 M/uL (4.2-5.4); WHITE BLOOD COUNT 6.36 K/uL (4.8-10.8)
[2016-11-20 05:42] LABS: ISTAT ALLEN TEST Pass; ISTAT ARTERIAL BLOOD GAS HCO3 20 meq/L (19-24); ISTAT ARTERIAL BLOOD GAS PCO2 35 mmHg (35-46); ISTAT ARTERIAL BLOOD GAS PO2 54 mmHg (80-95); ISTAT ARTERIAL BLOOD GAS pH 7.36 (7.35-7.45); ISTAT CARBON DIOXIDE 21 mEq/l (24-31); ISTAT DELIVERY SYSTEM Cannula; ISTAT SITE R Radial
[2016-11-20 05:44] LABS: PARTIAL THROMBOPLASTIN RATIO 1.4; PROTHROMBIN TIME (PATIENT) 11.1 SECONDS (9.0-12.0)
[2016-11-20 05:51] LABS: BUN/CREATININE RATIO 14.1 (10-20); CALCIUM 7.3 mg/dl (8.5-10.1); CREATININE 0.52 mg/dl (0.60-1.20); MAGNESIUM 2.4 mg/dl (1.8-2.4)
[2016-11-20 05:54] LABS: ALB/GLOB RATIO 0.6 (0.9-2)
[2016-11-20] MEDS: CEROVITE ADV FORMULA TAB PO SCH ×2 (07:34→20:44)
--- NOTE | 2016-11-20 07:42 | DIAGNOSTIC IMAGING REPORT ---
CHEST ONE VIEW PORTABLE CLINICAL HISTORY: LEFT HEMOTHORAX COMPARISON STUDY: Chest radiograph November 19, 2016. FINDINGS: The tip of the nasogastric tube is below the lower aspect of this image but at least within the mid body of the stomach. A right internal jugular central line is in place. There is a dual lead left pacemaker. A left-sided chest tube remains in place. There is no pneumothorax. There is a persistent left pleural effusion with associated airspace opacity. There may be a small right pleural effusion. Interstitial thickening persists. Right basilar opacity persists. IMPRESSION: 1. No change in appearance of the chest. Left chest tube in place. No pneumothorax. Stable residual left pleural effusion. 2. Persistent bibasilar opacities which could reflect atelectasis or consolidation. 3. Pulmonary vascular congestion with suspected mild pulmonary edema. Electronically signed by: Doug Schuler M.D. 11/20/2016 7:40 AM Dictated Date/Time: 11/20/2016 7:39 AM
[2016-11-20] MEDS: IPRATROPIUM BROMIDE/ALBUTEROL respimat INH INH SCH ×4 (08:01→20:44)
[2016-11-20] MEDS: PANTOprazole INJ 40 MG in SYRINGE 0 ML IV SCH (08:01)
[2016-11-20] MEDS ORDERED: POTASSIUM PHOS 3 MMOL/1 ML INFUSION IV STA (08:27)
[2016-11-20] MEDS ORDERED: POTASSIUM PHOSPHATE INJ 15 MMOL in SODIUM CHLORIDE 0.9% 250ML 250 ML IV ONE (08:30)
--- NOTE | 2016-11-20 10:12 | SURGERY PROGRESS NOTE ---
DATE: 11/20/2016 Ms. Villegas was seen today on 11/20/2016. I discussed this case with Dr. Steele. She is sitting up reading the paper. We are going to discontinue her right brachial A-line as she is hemodynamically stable. I think her x-ray looks a bit better, but she still has a hemothorax. I am going to wait and see how she looks tomorrow, but based on her CT scan, I think putting some TPA into her tube would be advisable.
[2016-11-20] MEDS: FENTANYL CITRATE INJ 50 MCG/1 ML 2 ML VIAL IV PRN ×4 (10:20→22:11)
[2016-11-20] MEDS: AMIODARONE / D5W 200 ML IV SCH ×2 (10:21→22:20)
--- NOTE | 2016-11-20 11:10 | CARDIOLOGY PROGRESS NOTE ---
DATE: 11/20/2016 SUBJECTIVE: This morning, Mrs. Villegas claims to be feeling slightly better. Still continues to have precordial and left-sided chest discomfort which is worse with deep inspiration. She was up in her chair yesterday and denied significant dizziness. She has been passing gas and has some appetite currently. Her NG tube has recently been clamped. She has not had anymore nausea or vomiting. She has no abdominal discomfort. PHYSICAL EXAMINATION: GENERAL: She was alert and oriented. Her mood and affect appeared appropriate. She answered all questions appropriately. CURRENT VITAL SIGNS: Include blood pressure 116/57 with pulse of 84. LUNGS: Auscultation of her lung apices reveals them to be clear with occasional crackles in the bases bilaterally. CARDIAC EXAMINATION: Revealed her to be in a regular rhythm. I do not appreciate any rubs on examination, no murmurs. ABDOMEN: Distended but nontender. LABORATORY STUDIES: Today included a white cell count of 6.3, hemoglobin of 9.6, platelet count of 124. Chemistry was sodium of 142, potassium was 4.0, BUN was 7 and creatinine was 0.52. Chest x-ray obtained today did not differ much from the one obtained yesterday. Review of her telemetry did not reveal any additional episodes of atrial fibrillation. ASSESSMENT AND PLAN: 1. Complete heart block. This appears to have resolved with implantation of permanent pacemaker. At the last evaluation, it was functioning normally. There is stable lead position on chest x-ray. 2. Cardiac tamponade secondary to right ventricular perforation. This also appears to have resolved. Drain was removed several days ago. Hemodynamically, she continues to improve. There was no evidence of recurrent effusion on echocardiogram performed shortly prior to drain removal. 3. Atrial fibrillation. This was in the setting of pressor use while she was quite sick and experiencing significant volume changes. I do not know if this is likely to be a recurrent issue. She is getting amiodarone and we will transition her to oral amiodarone once the NG tube is out or perhaps a period of 3 months' time. 4. Hemothorax. Overall lung aeration appears improved. After discussion with Dr. Arceo today, there is a thought of adding TPA to the chest tube tomorrow in the hopes of improving drainage of any remaining clot or thrombus. 5. Ileus. The patient is passing flatus and overall has developed an appetite. Her NG tube has been clamped for a period of time and we will see if she is able to tolerate liquids soon. [facility]
--- NOTE | 2016-11-20 12:00 | Critical Care Progress Note ---
Critical Care Progress Note Date of Service Nov 20, 2016. Attending Dr. Steele Subjective Doing well today. Passing gas No further a-fib Objective GENERAL: Patient is in no acute distress. HEENT: mucous membranes moist, no nasal congestion, no scleral icterus. NECK: No stridor, trachea is midline LUNGS: decreased breath sounds on left, left sided chest tube HEART: Without murmurs gallops or rubs, normal sinus rhythm ABDOMEN: Soft, distended, tympanic, non-tender EXTREMITIES: No cyanosis or edema, Right IJ triple lumen, Right axillary arterial line NEUROLOGIC: Oriented x 3, no acute motor or sensory deficits, no focal weakness. Current SOFA Score SOFA Score Response (Comments) Value PaO2/FiO2 (mmHg) < 300 2 Platelets (x10) < 150 1 Level of Hypotension MAP less than 70 1 Total 4 Assessment & Plan 71-year-old female with past medical history of hypertension and vertigo presented after a syncopal episode after having a bowel movement. EKG revealed a transient complete heart block. Status post dual-chamber pacemaker placed on11/14 and was found to have a pericardial effusion secondary to puncture of the right ventricular wall due to a lead from the pacemaker and had successful placement of pericardial drain. CT abdomen and pelvis revealed a left-sided moderate large hemothorax and a chest tube was placed to suction. She received a total of 4 units of PRBCs. Had an episode of coffee-ground emesis , started on Protonix and NG tube was placed. She had a successful revision of her pacemaker leads . After the procedure she was noted to have abdominal distention and a CT abdomen and pelvis was ordered after a flatplate revealed dilated loops of bowel. Abdominal distention somewhat better today though she still hasn't been passing gas or had a bowel movement. Pericardial drain and right femoral sheath were removed. Right-sided internal jugular triple-lumen catheter and right axillary arterial line were placed. NG tube was removed and diet has been advanced to clear liquids yesterday, but she required reinsertion on NGT for recurrent vomiting. Problems: Complete heart block, s/p permanent pacemaker insertion S/p hemorrhagic pericardial effusion with tamponade. S/p pericardial drain now removed Left hemothorax. S/p left chest tube Ileus Paroxysmal a-fib Shock - resolved Plan: HEALTHCARE PROF: Analgesia as needed, prn fentanyl and acetaminophen Unable to institute stroke prophylaxis for a-fib secondary to recent hemorrhagic events Cardiac: Remains off pressors. No further a-fib episodes Pericardial drain removed, no pacemaker issues. I only observed intrinsic rhythm so far IV amiodarone until she is able to take PO May require it for a month as outpatient as well to suppress the a-fib Remove axillary a-line Pulmonary: Chest tube still draining slowly, fluid is less bloody though. 150 ml /24 hrs For lysis of clot tomorrow CXR reviewed today, no significant change GI: Keep NGT in for now, NPO. Flatus present, no BM. NGT drainage decreased significantly today Add Miralax Protonix daily from now on Surgery following Renal: Diuresing well Overall in positive fluid balance Replenish electrolytes Continue Normosol @ 75 ml/hr ID: Off Abx. Culture if febrile DVT prophylaxis: SCD. No heparin for now OOB to chair, PT/OT Critical care time spent greater than 35 minutes Consults & Procedures Consultants: Cardiology, thoracic surgery, general surgery Procedures: 11/14/16 - PPM 11/15/16 - Pericardiocentesis with pericardial drain 11/15/16 - Left chest tube 28 Fr 11/16/16- PPM revision 11/17/2016- removal of right femoral sheath, placement of right jugular triple- lumen catheter, right axillary arterial line 11/18/2016- NG tube removed in AM, reinserted in PM Data Medications: Current Inpatient Medications Medications (Trade) Dose Ordered Sig/Barb Route Start Time Stop Time Status Last Admin Dose Admin Al Hydrox/Mg Hydrox/Simethicone (Maalox Max Susp) 15 ml Q4H PRN PO 11/12/16 12:15 12/12/16 12:14 Magnesium Hydroxide (Milk Of Magnesia Susp) 30 ml Q12H PRN PO 11/12/16 12:15 12/12/16 12:14 Albuterol/ Ipratropium (Combivent Respimat Inh) 1 puffs QID INH 11/12/16 17:00 12/12/16 16:59 11/20/16 08:01 1 PUFFS Meclizine HCl (Antivert Tab) 25 mg TID PRN PO 11/12/16 16:30 12/12/16 16:29 Nitroglycerin (Nitrostat Tab) 0.4 mg PRN PRN UT 11/12/16 16:30 12/12/16 16:29 Multivitamins/ Minerals (Multivitamin W/ Minerals Tab) 1 tab BID PO 11/12/16 21:00 12/12/16 20:59 11/19/16 21:24 1 TAB Tramadol HCl (Ultram Tab) 50 mg BID PRN PO 11/12/16 16:30 12/12/16 16:29 11/14/16 15:46 50 MG Acetaminophen (Tylenol Tab) 650 mg Q4H PRN PO 11/14/16 13:45 12/14/16 13:44 Oxycodone HCl (Roxicodone Immediate Rel Tab) 5 mg Q4 PRN PO 11/14/16 13:45 11/28/16 13:44 11/15/16 20:34 5 MG Ondansetron HCl 4 mg 4 mg Q4H PRN IV 11/14/16 15:30 12/14/16 15:29 11/18/16 22:03 4 MG Norepinephrine Bitartrate/ Dextrose (Levophed Inj/ D5W 500ml) 508 ml @ 0 mls/hr Q0M PRN IV 11/15/16 11:00 12/15/16 10:59 11/18/16 09:02 18 MLS/HR Fentanyl Citrate 50 mcg 50 mcg Q2H PRN IV 11/15/16 18:45 11/29/16 18:44 11/20/16 10:20 50 MCG Parenteral Electrolyte Solution 1,000 ml @ 75 mls/hr [id number] IV 11/16/16 08:15 12/16/16 08:14 11/20/16 03:41 75 MLS/HR Acetaminophen 100 ml @ 400 mls/hr Q8H PRN IV 11/16/16 08:15 12/16/16 08:14 11/16/16 13:10 400 MLS/HR Pantoprazole Sodium 40 mg/ Syringe 10 ml @ 5 mls/min DAILY@ IV 11/16/16 21:00 12/16/16 20:59 11/20/16 08:01 5 MLS/MIN Promethazine HCl 12.5 mg/Sodium Chloride 50.5 ml @ 202 mls/hr Q6H PRN IV 11/18/16 22:00 12/18/16 21:59 Amiodarone HCL/ Dextrose (Nexterone / D5w) 200 ml @ 16.7 mls/hr [id number] IV 11/19/16 11:15 12/19/16 11:14 11/20/16 10:21 16.7 MLS/HR I & O: 24-Hour Column 11/20/16 08:00 Intake Total 2725 ml Output Total 1760 ml Balance 965 ml Chest tube: 150 ml Vital Signs: Date Time Temp Pulse Resp B/P Pulse Ox O2 Delivery O2 Flow Rate FiO2 11/20/16 10:00 80 18 109/51 96 Nasal Cannula 3.0 111/63 11/20/16 09:00 80 19 92 Nasal Cannula 3.0 11/20/16 08:00 36.5 84 22 116/57 94 Nasal Cannula 3.0 11/20/16 08:00 Nasal Cannula 3.0 11/20/16 07:00 85 14 125/68 97 Nasal Cannula 3.0 11/20/16 06:00 85 15 74/69 96 Nasal Cannula 2.0 11/20/16 04:28 95 Nasal Cannula 2.0 11/20/16 04:01 88 16 106/95 93 11/20/16 04:00 37.0 85 15 106/92 93 Nasal Cannula 2.0 11/20/16 03:01 84 15 88/73 95 11/20/16 03:00 85 14 90/73 95 11/20/16 02:00 87 14 88/76 95 11/20/16 00:32 77 16 92/55 95 11/20/16 00:12 95 Nasal Cannula 2.0 11/20/16 00:00 80 17 92/55 94 11/19/16 23:00 87 16 300/300 95 11/19/16 22:00 81 18 84/44 94 11/19/16 21:00 87 18 99/53 95 11/19/16 21:00 87 18 99/53 95 Nasal Cannula 2.0 11/19/16 20:15 94 Nasal Cannula 2.0 11/19/16 20:00 36.8 82 18 90/49 96 Nasal Cannula 2.0 11/19/16 19:00 82 17 85/47 95 11/19/16 18:00 84 19 94/51 94 11/19/16 17:00 83 19 101/54 96 Nasal Cannula 2.0 11/19/16 16:00 36.8 85 18 106/72 96 Nasal Cannula 2.0 11/19/16 16:00 95 Nasal Cannula 2.0 11/19/16 15:00 90 15 111/61 93 Nasal Cannula 2.0 11/19/16 14:00 87 17 120/61 95 Nasal Cannula 2.0 11/19/16 12:00 36.2 86 22 100/52 11/19/16 12:00 95 Nasal Cannula 2.0 Laboratory Results: Last 24 Hours Test 11/19/16 12:51 11/20/16 05:22 11/20/16 05:28 Blood Gas Sample Site Art Line R Radial Bedside Blood Gas pH (LAB) 7.38 7.36 Bedside Blood Gas pCO2 (LAB) 38 mmHg 35 mmHg Bedside Blood Gas pO2 (LAB) 63 mmHg 54 mmHg Bedside Blood Gas HCO3 (LAB) 22 meq/L 20 meq/L Bedside Blood Gas Total CO2 23 mEq/l 21 mEq/l Bedside Blood Gas Base Excess (LAB) -3.0 meq/L -6.0 meq/L Bedside Blood Gas O2 Saturation 91.0 % 89.0 % Claudio Test NA Pass Oxygen Delivery Device Cannula Cannula White Blood Count 6.36 K/uL Red Blood Count 3.45 M/uL Hemoglobin 9.6 g/dL Hematocrit 30.5 % Mean Corpuscular Volume 88.4 fL Mean Corpuscular Hemoglobin 27.8 pg Mean Corpuscular Hemoglobin Concent 31.5 g/dl RDW Standard Deviation 52.0 fL RDW Coefficient of Variation 16.1 % Platelet Count 124 K/uL Mean Platelet Volume 9.2 fL Prothrombin Time 11.1 SECONDS Prothromb Time International Ratio 1.0 Activated Partial Thromboplast Time 35.8 SECONDS Partial Thromboplastin Ratio 1.4 Sodium Level 142 mmol/L Potassium Level 4.0 mmol/L Chloride Level 109 mmol/L Carbon Dioxide Level 28 mmol/L Anion Gap 5.0 mmol/L Blood Urea Nitrogen 7 mg/dl Creatinine 0.52 mg/dl Est Creatinine Clear Calc Drug Dose 104.3 ml/min Estimated GFR () 112.2 Estimated GFR (Non- 96.8 BUN/Creatinine Ratio 14.1 Random Glucose 71 mg/dl Calcium Level 7.3 mg/dl Phosphorus Level 2.0 mg/dl Magnesium Level 2.4 mg/dl Total Bilirubin 0.4 mg/dl Aspartate Amino Transf (AST/SGOT) 12 U/L Alanine Aminotransferase (ALT/SGPT) 10 U/L Alkaline Phosphatase 77 U/L Total Protein 5.1 gm/dl Albumin 2.0 gm/dl Globulin 3.1 gm/dl Albumin/Globulin Ratio 0.6
--- NOTE | 2016-11-20 12:11 | Surgery Progress Note ---
Surgery Progress Note Date of Service Nov 20, 2016. Subjective + feeling well Sitting in chair. No nausea. Continues to pass flatus. No bowel movement. At home, she has needed to take stool softeners and stimulants to have her bowels move. Objective Vital Signs: Date Time Temp Pulse Resp B/P Pulse Ox O2 Delivery O2 Flow Rate FiO2 11/20/16 12:00 Nasal Cannula 3.0 11/20/16 12:00 36.7 86 26 125/66 92 Nasal Cannula 3.0 11/20/16 11:00 79 20 118/68 96 Nasal Cannula 3.0 11/20/16 10:00 80 18 109/51 96 Nasal Cannula 3.0 111/63 11/20/16 09:00 80 19 92 Nasal Cannula 3.0 11/20/16 08:00 36.5 84 22 116/57 94 Nasal Cannula 3.0 11/20/16 08:00 Nasal Cannula 3.0 11/20/16 07:00 85 14 125/68 97 Nasal Cannula 3.0 11/20/16 06:00 85 15 74/69 96 Nasal Cannula 2.0 11/20/16 04:28 95 Nasal Cannula 2.0 11/20/16 04:01 88 16 106/95 93 11/20/16 04:00 37.0 85 15 106/92 93 Nasal Cannula 2.0 11/20/16 03:01 84 15 88/73 95 11/20/16 03:00 85 14 90/73 95 11/20/16 02:00 87 14 88/76 95 11/20/16 00:32 77 16 92/55 95 11/20/16 00:12 95 Nasal Cannula 2.0 11/20/16 00:00 80 17 92/55 94 11/19/16 23:00 87 16 300/300 95 11/19/16 22:00 81 18 84/44 94 11/19/16 21:00 87 18 99/53 95 11/19/16 21:00 87 18 99/53 95 Nasal Cannula 2.0 11/19/16 20:15 94 Nasal Cannula 2.0 11/19/16 20:00 36.8 82 18 90/49 96 Nasal Cannula 2.0 11/19/16 19:00 82 17 85/47 95 11/19/16 18:00 84 19 94/51 94 11/19/16 17:00 83 19 101/54 96 Nasal Cannula 2.0 11/19/16 16:00 36.8 85 18 106/72 96 Nasal Cannula 2.0 11/19/16 16:00 95 Nasal Cannula 2.0 11/19/16 15:00 90 15 111/61 93 Nasal Cannula 2.0 11/19/16 14:00 87 17 120/61 95 Nasal Cannula 2.0 Physical Exam: nasogastric drainage (0 cc since placement (initially 275 cc)) General Appearance: no apparent distress Head: normocephalic, atraumatic Abdomen: normal bowel sounds, non tender, non distended, soft Laboratory Results: Results Past 24 Hours Test 11/19/16 12:51 11/20/16 05:22 11/20/16 05:28 Range/Units Blood Gas Sample Site Art Line R Radial Bedside Blood Gas pH (LAB) 7.38 7.36 7.35-7.45 Bedside Blood Gas pCO2 (LAB) 38 35 35-46 mmHg Bedside Blood Gas pO2 (LAB) 63 54 80-95 mmHg Bedside Blood Gas HCO3 (LAB) 22 20 19-24 meq/L Bedside Blood Gas Total CO2 23 21 24-31 mEq/l Bedside Blood Gas Base Excess (LAB) -3.0 -6.0 -9-1.8 meq/L Bedside Blood Gas O2 Saturation 91.0 89.0 90-95 % Claudio Test NA Pass Oxygen Delivery Device Cannula Cannula White Blood Count 6.36 4.8-10.8 K/uL Red Blood Count 3.45 4.2-5.4 M/uL Hemoglobin 9.6 12.0-16.0 g/dL Hematocrit 30.5 37-47 % Mean Corpuscular Volume 88.4 80-100 fL Mean Corpuscular Hemoglobin 27.8 25-34 pg Mean Corpuscular Hemoglobin Concent 31.5 32-36 g/dl RDW Standard Deviation 52.0 36.4-46.3 fL RDW Coefficient of Variation 16.1 11.5-14.5 % Platelet Count 124 130-400 K/uL Mean Platelet Volume 9.2 7.4-10.4 fL Prothrombin Time 11.1 9.0-12.0 SECONDS Prothromb Time International Ratio 1.0 0.9-1.1 Activated Partial Thromboplast Time 35.8 21.0-31.0 SECONDS Partial Thromboplastin Ratio 1.4 Sodium Level 142 136-145 mmol/L Potassium Level 4.0 3.5-5.1 mmol/L Chloride Level 109 98-107 mmol/L Carbon Dioxide Level 28 21-32 mmol/L Anion Gap 5.0 3-11 mmol/L Blood Urea Nitrogen 7 7-18 mg/dl Creatinine 0.52 0.60-1.20 mg/dl Est Creatinine Clear Calc Drug Dose 104.3 ml/min Estimated GFR () 112.2 Estimated GFR (Non- 96.8 BUN/Creatinine Ratio 14.1 10-20 Random Glucose 71 70-99 mg/dl Calcium Level 7.3 8.5-10.1 mg/dl Phosphorus Level 2.0 2.5-4.9 mg/dl Magnesium Level 2.4 1.8-2.4 mg/dl Total Bilirubin 0.4 0.2-1 mg/dl Aspartate Amino Transf (AST/SGOT) 12 15-37 U/L Alanine Aminotransferase (ALT/SGPT) 10 12-78 U/L Alkaline Phosphatase 77 45-117 U/L Total Protein 5.1 6.4-8.2 gm/dl Albumin 2.0 3.4-5.0 gm/dl Globulin 3.1 2.5-4.0 gm/dl Albumin/Globulin Ratio 0.6 0.9-2 Assessment & Plan Ileus - slow to resolve. Passing flatus and no output from ng tube. Would try to start bowel regimen as she has needed this at home prior to admission. If has bowel movements, OK to d/c ng and retry diet.
[2016-11-20] MEDS ORDERED: POLYETHYLENE (MIRALAX) 17 GM PACK PO ONE (12:15)
--- NOTE | 2016-11-20 13:26 | Progress Note ---
Subjective Date of Service: Nov 20, 2016. Subjective Pt evaluation today including: conversation w/ patient, conversation w/ family , physical exam, lab review, review of studies, conversation w/ wireless consultant, review of inpatient medication list Pain: left sided chest pain PO Intake: NGT, NPO Voiding: rodriguez catheter in place patient sitting in chair comfortably, getting pedicure from her sister, no issues overnight getting some Miralax per surgery, going to try to get bowels going, passing flatus CT stable, going to ask thoracic surgery to assess tomorrow for VATS no dyspnea reviewed lab work today CXR shows stability, no edema or infiltrate Problem List Medical Problems: (1) Asthma, Unspecified Status: Chronic (2) Esophageal Reflux Status: Chronic (3) Hypertension Nos Status: Chronic (4) Lumb/Lumbosac Disc Degen Status: Chronic (5) Macular Degeneration Nos Status: Chronic (6) Osteoporosis Nos Status: Chronic (7) Syncope Status: Acute (8) Vertigo Status: Chronic Review of Systems Constitutional: + fatigue, + weakness Respiratory: + dyspnea on exertion Cardiac: + chest pain (left side) Abdomen: + constipation (+ flatus) Neurologic: + weakness All Other Systems: Reviewed and Negative Medications Current Inpatient Medications Medications (Trade) Dose Ordered Sig/Barb Route Start Time Stop Time Status Last Admin Dose Admin Al Hydrox/Mg Hydrox/Simethicone (Maalox Max Susp) 15 ml Q4H PRN PO 11/12/16 12:15 12/12/16 12:14 Magnesium Hydroxide (Milk Of Magnesia Susp) 30 ml Q12H PRN PO 11/12/16 12:15 12/12/16 12:14 Albuterol/ Ipratropium (Combivent Respimat Inh) 1 puffs QID INH 11/12/16 17:00 12/12/16 16:59 11/20/16 12:49 1 PUFFS Meclizine HCl (Antivert Tab) 25 mg TID PRN PO 11/12/16 16:30 12/12/16 16:29 Nitroglycerin (Nitrostat Tab) 0.4 mg PRN PRN UT 11/12/16 16:30 12/12/16 16:29 Multivitamins/ Minerals (Multivitamin W/ Minerals Tab) 1 tab BID PO 11/12/16 21:00 12/12/16 20:59 11/19/16 21:24 1 TAB Tramadol HCl (Ultram Tab) 50 mg BID PRN PO 11/12/16 16:30 12/12/16 16:29 11/14/16 15:46 50 MG Acetaminophen (Tylenol Tab) 650 mg Q4H PRN PO 11/14/16 13:45 12/14/16 13:44 Oxycodone HCl (Roxicodone Immediate Rel Tab) 5 mg Q4 PRN PO 11/14/16 13:45 11/28/16 13:44 11/15/16 20:34 5 MG Ondansetron HCl 4 mg 4 mg Q4H PRN IV 11/14/16 15:30 12/14/16 15:29 11/18/16 22:03 4 MG Norepinephrine Bitartrate/ Dextrose (Levophed Inj/ D5W 500ml) 508 ml @ 0 mls/hr Q0M PRN IV 11/15/16 11:00 12/15/16 10:59 11/18/16 09:02 18 MLS/HR Fentanyl Citrate 50 mcg 50 mcg Q2H PRN IV 11/15/16 18:45 11/29/16 18:44 11/20/16 12:50 50 MCG Parenteral Electrolyte Solution 1,000 ml @ 75 mls/hr [id number] IV 11/16/16 08:15 12/16/16 08:14 11/20/16 03:41 75 MLS/HR Acetaminophen 100 ml @ 400 mls/hr Q8H PRN IV 11/16/16 08:15 12/16/16 08:14 11/16/16 13:10 400 MLS/HR Promethazine HCl 12.5 mg/Sodium Chloride 50.5 ml @ 202 mls/hr Q6H PRN IV 11/18/16 22:00 12/18/16 21:59 Amiodarone HCL/ Dextrose (Nexterone / D5w) 200 ml @ 16.7 mls/hr [id number] IV 11/19/16 11:15 12/19/16 11:14 11/20/16 10:21 16.7 MLS/HR Polyethylene 17 gm 17 gm DAILY PO 11/21/16 09:00 12/21/16 08:59 Pantoprazole Sodium/Syringe (Protonix Inj/ Syringe) 10 ml @ 5 mls/min DAILY@1100 IV 11/21/16 11:00 12/21/16 10:59 Objective Vital Signs Date Time Temp Pulse Resp B/P Pulse Ox O2 Delivery O2 Flow Rate FiO2 11/20/16 12:49 82 96 11/20/16 12:00 Nasal Cannula 3.0 11/20/16 12:00 36.7 86 26 125/66 92 Nasal Cannula 3.0 11/20/16 11:00 79 20 118/68 96 Nasal Cannula 3.0 11/20/16 10:00 80 18 109/51 96 Nasal Cannula 3.0 111/63 11/20/16 09:00 80 19 92 Nasal Cannula 3.0 11/20/16 08:00 36.5 84 22 116/57 94 Nasal Cannula 3.0 11/20/16 08:00 Nasal Cannula 3.0 11/20/16 07:00 85 14 125/68 97 Nasal Cannula 3.0 11/20/16 06:00 85 15 74/69 96 Nasal Cannula 2.0 11/20/16 04:28 95 Nasal Cannula 2.0 11/20/16 04:01 88 16 106/95 93 11/20/16 04:00 37.0 85 15 106/92 93 Nasal Cannula 2.0 11/20/16 03:01 84 15 88/73 95 11/20/16 03:00 85 14 90/73 95 11/20/16 02:00 87 14 88/76 95 11/20/16 00:32 77 16 92/55 95 11/20/16 00:12 95 Nasal Cannula 2.0 11/20/16 00:00 80 17 92/55 94 11/19/16 23:00 87 16 300/300 95 11/19/16 22:00 81 18 84/44 94 11/19/16 21:00 87 18 99/53 95 11/19/16 21:00 87 18 99/53 95 Nasal Cannula 2.0 11/19/16 20:15 94 Nasal Cannula 2.0 11/19/16 20:00 36.8 82 18 90/49 96 Nasal Cannula 2.0 11/19/16 19:00 82 17 85/47 95 11/19/16 18:00 84 19 94/51 94 11/19/16 17:00 83 19 101/54 96 Nasal Cannula 2.0 11/19/16 16:00 36.8 85 18 106/72 96 Nasal Cannula 2.0 11/19/16 16:00 95 Nasal Cannula 2.0 11/19/16 15:00 90 15 111/61 93 Nasal Cannula 2.0 11/19/16 14:00 87 17 120/61 95 Nasal Cannula 2.0 Physical Exam General Appearance: WD/WN, no apparent distress Eyes: normal inspection, EOMI, sclerae normal ENT: normal ENT inspection, hearing grossly normal, pharynx normal Neck: supple, no adenopathy, no JVD, trachea midline Respiratory/Chest: lungs clear, no respiratory distress, no accessory muscle use, + decreased breath sounds (left base), + pertinent finding (left CT in place, tender) Cardiovascular: regular rate, rhythm, no edema, no gallop, no JVD, no murmur Abdomen: non tender, soft, no organomegaly, + abnormal bowel sounds ( hypoactive but better from yesterday) Extremities: normal range of motion, non-tender, normal inspection, no pedal edema, no calf tenderness, pelvis stable Neurologic/Psychiatric: clinical trials systems administrator II-XII nml as tested, no motor/sensory deficits, alert, normal mood/affect, oriented x 3 Skin: normal color, warm/dry, no rash Laboratory Results CHEST ONE VIEW PORTABLE CLINICAL HISTORY: LEFT HEMOTHORAX COMPARISON STUDY: Chest radiograph November 19, 2016. FINDINGS: The tip of the nasogastric tube is below the lower aspect of this image but at least within the mid body of the stomach. A right internal jugular central line is in place. There is a dual lead left pacemaker. A left-sided chest tube remains in place. There is no pneumothorax. There is a persistent left pleural effusion with associated airspace opacity. There may be a small right pleural effusion. Interstitial thickening persists. Right basilar opacity persists. IMPRESSION: 1. No change in appearance of the chest. Left chest tube in place. No pneumothorax. Stable residual left pleural effusion. 2. Persistent bibasilar opacities which could reflect atelectasis or consolidation. 3. Pulmonary vascular congestion with suspected mild pulmonary edema. Last 24 Hours Test 11/20/16 05:22 11/20/16 05:28 White Blood Count 6.36 K/uL Red Blood Count 3.45 M/uL Hemoglobin 9.6 g/dL Hematocrit 30.5 % Mean Corpuscular Volume 88.4 fL Mean Corpuscular Hemoglobin 27.8 pg Mean Corpuscular Hemoglobin Concent 31.5 g/dl RDW Standard Deviation 52.0 fL RDW Coefficient of Variation 16.1 % Platelet Count 124 K/uL Mean Platelet Volume 9.2 fL Prothrombin Time 11.1 SECONDS Prothromb Time International Ratio 1.0 Activated Partial Thromboplast Time 35.8 SECONDS Partial Thromboplastin Ratio 1.4 Sodium Level 142 mmol/L Potassium Level 4.0 mmol/L Chloride Level 109 mmol/L Carbon Dioxide Level 28 mmol/L Anion Gap 5.0 mmol/L Blood Urea Nitrogen 7 mg/dl Creatinine 0.52 mg/dl Est Creatinine Clear Calc Drug Dose 104.3 ml/min Estimated GFR () 112.2 Estimated GFR (Non- 96.8 BUN/Creatinine Ratio 14.1 Random Glucose 71 mg/dl Calcium Level 7.3 mg/dl Phosphorus Level 2.0 mg/dl Magnesium Level 2.4 mg/dl Total Bilirubin 0.4 mg/dl Aspartate Amino Transf (AST/SGOT) 12 U/L Alanine Aminotransferase (ALT/SGPT) 10 U/L Alkaline Phosphatase 77 U/L Total Protein 5.1 gm/dl Albumin 2.0 gm/dl Globulin 3.1 gm/dl Albumin/Globulin Ratio 0.6 Blood Gas Sample Site R Radial Bedside Blood Gas pH (LAB) 7.36 Bedside Blood Gas pCO2 (LAB) 35 mmHg Bedside Blood Gas pO2 (LAB) 54 mmHg Bedside Blood Gas HCO3 (LAB) 20 meq/L Bedside Blood Gas Total CO2 21 mEq/l Bedside Blood Gas Base Excess (LAB) -6.0 meq/L Bedside Blood Gas O2 Saturation 89.0 % Claudio Test Pass Oxygen Delivery Device Cannula Assessment and Plan 71 yo female with PMH of HTN, GERD and vertigo. presented with syncope (also happened about 2 years ago) 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 patient had a pacemaker on 11/14 but unfortunately there was a complication on 11/15 with the right ventricle wire going through the ventricle she developed a pericardial tamponade and a drain was placed, then developed a left hemothorax and CT was placed subsequently developed an ileus requiring NGT decompression - Hypotension due to tamponade: resolved, off of dobutamine, tamponade resolved with drain that was then pulled 11/17 continue arterial line for close monitoring - Left hemothorax: continue chest tube, stable CT surgery to determine plan for VATS, tPA on Monday, keep CT in place - Acute blood loss anemia: Hb stable, did receive 4 units total - Cardiac tamponade: resolved with drain, hemodynamically stable, clear heart sounds today - SBO/ileus: NGT pulled 11/18, advanced to clears, then with repeat nausea and vomiting over night and NGT placed again + flatus this AM, no BM, giving Miralax to try to get bowels moving if she moves bowels, surgery okay with pulling NGT and clear liquid diet - Syncope: secondary to transient complete heart block pacer on 11/14, revision of leads on 11/16, working appropriately - Paroxysmal atrial fibrillation: occurred briefly and resolved with Amiodarone cardiology recommends to continue for a month - CHRISTIAN: resolved with fluids and BP support, making adequate urine, keep rodriguez for now - Diarrhea: resolved, C diff and stool cultures negative - Leukocytosis and fevers: no clear source of infection, on Vancomycin and Zosyn initially, stopped without clear source of infection remains afebrile off antibiotics, WBC normal at 6 plan: keep in ICU, Dr. Arceo to see Monday, I discussed the case with Dr. Steele patient will likely need rehab once medically ready for discharge Continued [facility] stay due to: other Discharge planning: home
[2016-11-21] VITALS (23 sets, daily range): BP systolic 114–159; BP diastolic 50–101; PULSE 86–113; TEMP 36.5–36.7; O2SAT 92–96
[2016-11-21] MEDS: FENTANYL CITRATE INJ 50 MCG/1 ML 2 ML VIAL IV PRN ×3 (03:30→15:26)
[2016-11-21] MEDS: NORMOSOL R 1,000 ML IV SCH (05:20)
[2016-11-21 05:30] LABS: HEMATOCRIT 31.4 % (37-47); MEAN CELL VOLUME 89.7 fL (80-100); MEAN CORPUSCULAR HEMOGLOBIN 28.3 pg (25-34); MEAN CORPUSCULAR HGB CONC 31.5 g/dl (32-36); MEAN PLATELET VOLUME 10.4 fL (7.4-10.4); PLATELET COUNT 164 K/uL (130-400); WHITE BLOOD COUNT 6.52 K/uL (4.8-10.8)
[2016-11-21 06:10] LABS: BUN/CREATININE RATIO 12.5 (10-20); CALCIUM 7.6 mg/dl (8.5-10.1); CREATININE 0.49 mg/dl (0.60-1.20); MAGNESIUM 2.4 mg/dl (1.8-2.4); POTASSIUM 4.1 mmol/L (3.5-5.1)
[2016-11-21 06:13] LABS: ALB/GLOB RATIO 0.7 (0.9-2); PHOSPHORUS 2.2 mg/dl (2.5-4.9)
[2016-11-21] MEDS ORDERED: SOD PHOSPHATE/SOD BIPHOSPHATE ENEMA 132 ML BTL PR PRN (07:00)
--- NOTE | 2016-11-21 07:39 | DIAGNOSTIC IMAGING REPORT ---
CHEST ONE VIEW PORTABLE CLINICAL HISTORY: Left hemothorax. COMPARISON STUDY: Chest radiograph November 20, 2016. FINDINGS: A left chest tube remains in place. There is no pneumothorax. A left pleural effusion persists. Extensive lower lobe airspace opacity with volume loss is again noted. There may be right lower lobe collapse. Air bronchograms are noted. There may also be left lower lobe atelectasis. A right internal jugular central line remains in place. There is a dual lead left subclavian pacemaker. IMPRESSION: 1. No change in extensive bilateral lower lobe opacities which could reflect lower lobe collapse or consolidation. Associated volume loss. 2. Small left pleural effusion with left chest tube in place. No pneumothorax. Electronically signed by: Doug Schuler M.D. 11/21/2016 7:37 AM Dictated Date/Time: 11/21/2016 7:35 AM
--- NOTE | 2016-11-21 08:08 | SURGERY PROGRESS NOTE ---
DATE: 11/21/2016 SUBJECTIVE: Nadiya over the weekend apparently has been doing well. I took the NG tube out on Monday and according to the nurses, she had a small emesis and apparently was reinserted since then with very little drainage. This morning she is resting comfortably, her abdomen is soft, she is passing a significant amount of flatus. They gave her some MiraLax also. Her I and O showed 50 mL of drainage of the NG tube overnight, none yesterday. LABORATORY DATA: Hemoglobin is 9.9. No white count elevation. The BUN is 6 and creatinine is 0.49. Her weight on admission was 82 kilograms. Two days ago, it was 93 kilograms. At this point, my recommendation will be discontinue the NG tube. We will give her a Fleets enema. She may need diuretics. Her last vitals showed a temperature of 36.6, pulse 92, respirations 14, and blood pressure 119/78.
[2016-11-21] MEDS: POLYETHYLENE (MIRALAX) 17 GM PACK PO SCH (09:00)
[2016-11-21] MEDS: CEROVITE ADV FORMULA TAB PO SCH ×2 (09:00→21:00)
[2016-11-21] MEDS ORDERED: ALTEPLASE, RECOMBINANT 1 MG/ML 2 ML VIAL IPL SCH (09:00)
--- NOTE | 2016-11-21 09:49 | SURGERY PROGRESS NOTE ---
DATE: 11/21/2016 SUBJECTIVE: Ms. Villegas is seen today. It appears that she is moving her bowels. Her NG tube is clamped. She does have good bowel sounds. Her chest tube has been draining some dark bloody fluid; however, she has a significant amount of blood that is probably clotted in her chest. The chest tube is in good position. We are going to instill 4 mg of alteplase and 50 mL of normal saline. I have explained to the patient this could result in bleeding; however, I believe that this is going to be important for us to drain this out. She understands.
[2016-11-21] MEDS: IPRATROPIUM BROMIDE/ALBUTEROL respimat INH INH SCH ×4 (09:52→21:08)
[2016-11-21] MEDS: AMIODARONE / D5W 200 ML IV SCH ×2 (09:53→21:09)
--- NOTE | 2016-11-21 10:59 | OPERATIVE REPORT ---
DATE OF OPERATION: 11/21/2016 PROCEDURE: Instillation of thrombolytic through left chest tube. SURGEON: Dr. Arceo. MATERIALS DIRECTOR: YEYO Wallace SPECIFICS OF PROCEDURE: 4 mg of tissue plasminogen activator was reconstituted in 50 mL of normal saline. Under sterile conditions this was injected into her chest tube by clamping and unclamping. This was completed by almost 9 a.m. We will unclamp again in 2 hours and check a chest x-ray this afternoon. I attest to the content of the Intraoperative Record and any orders documented therein. Any exceptio ns are noted below.
[2016-11-21] MEDS ORDERED: PANTOprazole INJ 40 MG in SYRINGE 0 ML IV SCH (11:00)
[2016-11-21] MEDS ORDERED: POTASSIUM PHOS 3 MMOL/1 ML INFUSION IV STA (11:04)
[2016-11-21] MEDS ORDERED: METOCLOPRAMIDE HCL INJ 5 MG/ML 2 ML VIAL IV PRN (11:15)
[2016-11-21] MEDS ORDERED: NURSING VERBAL MED ORDER ONE (11:30)
[2016-11-21] MEDS ORDERED: POTASSIUM PHOSPHATE INJ 21 MMOL in SODIUM CHLORIDE 0.9% 500ML 500 ML IV SCH (11:45)
[2016-11-21] MEDS: ACETAMINOPHEN 500 MG TAB PO PRN (11:59)
--- NOTE | 2016-11-21 12:09 | CARDIOLOGY PROGRESS NOTE ---
DATE: 11/21/2016 SUBJECTIVE: This morning, Mrs. Villegas claims to be feeling slightly better. She continues to have some moderate to severe chest discomfort in the precordial and left chest area. She denies significant breathing difficulty with the exception of some mild pain on deep inspiration. She does not have any nausea and is passing gas. She recently received an enema. She has minimal appetite. She was sitting up in a chair for an extended period of time yesterday and denied significant dizziness. PHYSICAL EXAMINATION: GENERAL: She was alert and oriented, mood and affect appeared normal. CURRENT VITAL SIGNS: Include blood pressure 148/101 with a pulse of 101. LUNGS: Auscultation of her lung apices revealed occasional crackles and some mild upper airway congestion but generally good aeration. CARDIAC EXAMINATION: Revealed a regular rhythm without murmurs and a notable friction rub on deep expiration. LABORATORY STUDIES: Obtained today included a white cell count of 6.5, hemoglobin of 9.9, a platelet count of 164. Sodium is 141, potassium is 4.1, BUN was 6, creatinine was 0.49. A review of her telemetry did not reveal any notable arrhythmias. Chest x-ray obtained today suggested stability in the lung examination. ASSESSMENT AND PLAN: 1. Complete heart block, appears to have resolved with insertion of permanent pacemaker which on last evaluation was working normally. No evidence of complete heart block on telemetry. 2. Right ventricular perforation, resulting in cardiac tamponade. This was successfully treated with pericardial drainage, drain was removed. She does have evidence of a mild pericarditis based on her friction rub and continued discomfort. 3. Hemothorax, likely a complication of her pericardial drainage. I think the current plan is for instillation of TPA in the hopes of improving drainage of what is believed to be residual thrombus. 4. Atrial fibrillation, very transient in nature, currently on amiodarone infusion. I think when she is taking orals, a simple dose of 200 mg daily should be sufficient to keep her on this for perhaps 1-2 months. 5. Ileus. The patient continues to have symptoms of a mild ileus although she is passing gas. Hopefully with application of the enema, she will soon be able to eat and regain bowel function.
--- NOTE | 2016-11-21 12:48 | Critical Care Progress Note ---
Critical Care Progress Note Date of Service Nov 21, 2016. ICU Day ICU Day Number: [address] Flores Objective GENERAL: Patient is in no acute distress. HEENT: mucous membranes moist, no nasal congestion, no scleral icterus. NECK: No stridor, trachea is midline LUNGS: decreased breath sounds on left, left sided chest tube HEART: Without murmurs gallops or rubs, normal sinus rhythm ABDOMEN: Soft, distended, tympanic, non-tender EXTREMITIES: No cyanosis or edema, Right IJ triple lumen, Right axillary arterial line NEUROLOGIC: Oriented x 3, no acute motor or sensory deficits, no focal weakness. Current SOFA Score SOFA Score Response (Comments) Value SaO2 / FIO2 221 - 301 1 Level of Hypotension No Hypotension 0 Total 1 Previous SOFA Scores 4 Assessment & Plan 71-year-old female with past medical history of hypertension and vertigo presented after a syncopal episode after having a bowel movement. EKG revealed a transient complete heart block. Status post dual-chamber pacemaker placed on11/14 and was found to have a pericardial effusion secondary to puncture of the right ventricular wall due to a lead from the pacemaker and had successful placement of pericardial drain. CT abdomen and pelvis revealed a left-sided moderate large hemothorax and a chest tube was placed to suction. She received a total of 4 units of PRBCs. Had an episode of coffee-ground emesis , started on Protonix and NG tube was placed. She had a successful revision of her pacemaker leads . After the procedure she was noted to have abdominal distention and a CT abdomen and pelvis was ordered after a flatplate revealed dilated loops of bowel. Abdominal distention somewhat better today though she still hasn't been passing gas or had a bowel movement. Pericardial drain and right femoral sheath were removed. Right-sided internal jugular triple-lumen catheter and right axillary arterial line were placed. NG tube was removed and diet has been advanced to clear liquids yesterday, but she required reinsertion on NGT for recurrent vomiting. Problems: Complete heart block, s/p permanent pacemaker insertion S/p hemorrhagic pericardial effusion with tamponade. S/p pericardial drain now removed Left hemothorax. S/p left chest tube Ileus Paroxysmal a-fib Shock - resolved Plan: MANAGER MAC: Analgesia as needed, prn fentanyl and acetaminophen Unable to institute stroke prophylaxis for a-fib secondary to recent hemorrhagic events Cardiac: Remains off pressors. We'll convert to oral amiodarone once taking by mouth Pericardial drain removed, no pacemaker issues. I only observed intrinsic rhythm so far May require it for a month as outpatient as well to suppress the a-fib Pulmonary: TPA are given by CT surgery increase in drainage appears to be old blood CXR reviewed today, no significant change GI: full liquids. Flatus present, + BM. NGT drainage clamped earlier and tolerated Protonix daily from now on Surgery following We will add prokinetics if return of bowel function Renal: Diuresing well Overall in positive fluid balance Replenish electrolytes Discontinue Normosol ID: Off Abx. Culture if febrile DVT prophylaxis: SCD. Heparin 5000 and it's 3 times a day OOB to chair, PT/OT Placed 2 peripheral IVs and discontinue central line I have personally spent 40 minutes of critical care time in the direct management of this patient. This is a life/limb threatening event. This includes time spent evaluating patient, direct bedside care, chart review, placing orders, interpretation of diagnostic studies, discussion with consultants, patient, and family members, as well as other required patient management activities. This time is exclusive of all separately billable procedures, and teaching time and separate from and in addition to any other critical care service time. Consults & Procedures Consultants: Cardiology, thoracic surgery, general surgery Procedures: 11/14/16 - PPM 11/15/16 - Pericardiocentesis with pericardial drain 11/15/16 - Left chest tube 28 Fr 11/16/16- PPM revision 11/17/2016- removal of right femoral sheath, placement of right jugular triple- lumen catheter, right axillary arterial line 11/18/2016- NG tube removed in AM, reinserted in PM Data Medications: Current Inpatient Medications Medications (Trade) Dose Ordered Sig/Barb Route Start Time Stop Time Status Last Admin Dose Admin Al Hydrox/Mg Hydrox/Simethicone (Maalox Max Susp) 15 ml Q4H PRN PO 11/12/16 12:15 12/12/16 12:14 Magnesium Hydroxide (Milk Of Magnesia Susp) 30 ml Q12H PRN PO 11/12/16 12:15 12/12/16 12:14 Albuterol/ Ipratropium (Combivent Respimat Inh) 1 puffs QID INH 11/12/16 17:00 12/12/16 16:59 11/21/16 09:52 1 PUFFS Meclizine HCl (Antivert Tab) 25 mg TID PRN PO 11/12/16 16:30 12/12/16 16:29 Nitroglycerin (Nitrostat Tab) 0.4 mg PRN PRN UT 11/12/16 16:30 12/12/16 16:29 Multivitamins/ Minerals (Multivitamin W/ Minerals Tab) 1 tab BID PO 11/12/16 21:00 12/12/16 20:59 11/20/16 20:44 1 TAB Tramadol HCl (Ultram Tab) 50 mg BID PRN PO 11/12/16 16:30 12/12/16 16:29 11/14/16 15:46 50 MG Oxycodone HCl (Roxicodone Immediate Rel Tab) 5 mg Q4 PRN PO 11/14/16 13:45 11/28/16 13:44 11/15/16 20:34 5 MG Fentanyl Citrate 50 mcg 50 mcg Q2H PRN IV 11/15/16 18:45 11/29/16 18:44 11/21/16 09:51 50 MCG Acetaminophen 100 ml @ 400 mls/hr Q8H PRN IV 11/16/16 08:15 12/16/16 08:14 11/16/16 13:10 400 MLS/HR Amiodarone HCL/ Dextrose (Nexterone / D5w) 200 ml @ 16.7 mls/hr [id number] IV 11/19/16 11:15 12/19/16 11:14 11/21/16 09:53 16.7 MLS/HR Polyethylene 17 gm 17 gm DAILY PO 11/21/16 09:00 12/21/16 08:59 Pantoprazole Sodium/Syringe (Protonix Inj/ Syringe) 10 ml @ 5 mls/min DAILY@1100 IV 11/21/16 11:00 12/21/16 10:59 11/21/16 11:57 5 MLS/MIN Sodium Biphosphate/ Sodium Phosphate (Fleet Enema) 132 ml ONE PRN CO 11/21/16 07:00 12/21/16 06:59 11/21/16 07:39 132 ML Metoclopramide HCl (Reglan Inj) 10 mg Q6H PRN IV 11/21/16 11:15 12/21/16 11:14 Heparin Sodium (Porcine) (Heparin Sq 5000 Unit/0.5ml) 5,000 unit Q8 SQ 11/21/16 14:00 12/21/16 13:59 Acetaminophen 1000 mg 1,000 mg Q8 PRN PO 11/21/16 11:30 12/21/16 11:29 11/21/16 11:59 1,000 MG Potassium Phosphate/Sodium Chloride (Potassium Phosphate Inj/Nss 500ml) 507 ml @ 169 mls/hr TODAY@1145 IV 11/21/16 11:45 11/21/16 14:44 11/21/16 11:56 169 MLS/HR I & O: 24-Hour Column 11/21/16 08:00 Intake Total 2673 ml Output Total 3130 ml Balance -457 ml Vital Signs: Date Time Temp Pulse Resp B/P Pulse Ox O2 Delivery O2 Flow Rate FiO2 11/21/16 12:00 36.7 113 23 143/79 92 2.0 11/21/16 12:00 94 Nasal Cannula 2.0 11/21/16 10:00 96 22 133/77 93 11/21/16 08:00 94 Nasal Cannula 2.0 11/21/16 08:00 36.6 101 23 148/101 92 Nasal Cannula 2.0 11/21/16 06:05 92 14 119/78 94 11/21/16 05:50 92 17 95 11/21/16 04:05 94 13 93 11/21/16 04:00 95 Nasal Cannula 3.0 11/21/16 04:00 93 15 120/61 93 11/21/16 03:50 93 16 93 11/21/16 02:50 92 15 95 11/21/16 02:35 91 14 95 11/21/16 02:20 91 15 95 11/21/16 02:05 92 14 95 11/21/16 02:00 93 18 131/68 95 11/21/16 01:50 98 20 96 11/21/16 00:05 95 14 96 11/21/16 00:00 94 18 134/65 96 11/21/16 00:00 95 Nasal Cannula 3.0 11/20/16 23:50 94 15 95 11/20/16 22:05 91 24 92 11/20/16 22:00 92 16 126/68 94 11/20/16 21:50 86 17 93 11/20/16 20:20 84 20 95 11/20/16 20:11 36.6 82 19 120/61 95 11/20/16 20:05 83 18 95 11/20/16 20:00 95 Nasal Cannula 3.0 11/20/16 20:00 81 19 120/61 95 11/20/16 19:50 79 24 96 11/20/16 18:00 85 17 121/67 95 Nasal Cannula 3.0 11/20/16 16:00 36.7 80 23 122/66 97 Nasal Cannula 3.0 11/20/16 16:00 Nasal Cannula 3.0 11/20/16 14:00 81 16 127/69 96 Nasal Cannula 3.0 11/20/16 12:49 82 96 Laboratory Results: Last 24 Hours Test 11/21/16 04:32 White Blood Count 6.52 K/uL Red Blood Count 3.50 M/uL Hemoglobin 9.9 g/dL Hematocrit 31.4 % Mean Corpuscular Volume 89.7 fL Mean Corpuscular Hemoglobin 28.3 pg Mean Corpuscular Hemoglobin Concent 31.5 g/dl RDW Standard Deviation 51.5 fL RDW Coefficient of Variation 15.7 % Platelet Count 164 K/uL Mean Platelet Volume 10.4 fL Sodium Level 141 mmol/L Potassium Level 4.1 mmol/L Chloride Level 106 mmol/L Carbon Dioxide Level 28 mmol/L Anion Gap 7.0 mmol/L Blood Urea Nitrogen 6 mg/dl Creatinine 0.49 mg/dl Est Creatinine Clear Calc Drug Dose 110.6 ml/min Estimated GFR () 114.4 Estimated GFR (Non- 98.7 BUN/Creatinine Ratio 12.5 Random Glucose 63 mg/dl Calcium Level 7.6 mg/dl Phosphorus Level 2.2 mg/dl Magnesium Level 2.4 mg/dl Total Bilirubin 0.4 mg/dl Aspartate Amino Transf (AST/SGOT) 14 U/L Alanine Aminotransferase (ALT/SGPT) 11 U/L Alkaline Phosphatase 84 U/L Total Protein 5.2 gm/dl Albumin 2.1 gm/dl Globulin 3.1 gm/dl Albumin/Globulin Ratio 0.7
[2016-11-21] MEDS: HEPARIN SOD 5000 UNIT/0.5 ML CARP SQ SCH ×2 (13:00→21:08)
--- NOTE | 2016-11-21 15:35 | Progress Note ---
Subjective Date of Service: Nov 21, 2016. Subjective Pt evaluation today including: conversation w/ patient, physical exam, chart review, lab review, review of studies, conversation w/ application development consultant, review of inpatient medication list Voiding: rodriguez catheter in place Complain left anterior chest and left flank area pain, otherwise feeling okay, eating lunch, possible chest tube clotted which was treated by TPA by chest surgeon, has more than 500 ml drainage after the treatment No other complaint Problem List Medical Problems: (1) Asthma, Unspecified Status: Chronic (2) Esophageal Reflux Status: Chronic (3) Hypertension Nos Status: Chronic (4) Lumb/Lumbosac Disc Degen Status: Chronic (5) Macular Degeneration Nos Status: Chronic (6) Osteoporosis Nos Status: Chronic (7) Syncope Status: Acute (8) Vertigo Status: Chronic Review of Systems Constitutional: + fatigue, + weakness, No chills, No fever, No problem reported , No sweats, No weight loss Eyes: No diplopia, No discharge, No eye pain, No redness, No worsening of vision ENT: No dental problems, No hearing loss, No nasal symptoms, No sore throat, No tinnitus, No trouble swallowing, No unusual epistaxis Respiratory: No cough, No dyspnea at rest, No dyspnea on exertion, No hemoptysis, No shortness of breath, No sputum, No wheezing Cardiac: + chest pain, No PND, No claudication, No edema, No orthopnea, No palpitations Abdomen: No constipation, No diarrhea, No nausea, No pain, No vomiting Musculoskeletal: No calf pain, No joint pain, No muscle pain, No swelling Female : No abnormal vaginal bleeding, No dysuria, No hematuria, No incontinence, No urinary frequency, No vaginal discharge Neurologic: No balance problems, No memory loss, No numbness/tingling, No paralysis, No vertigo, No weakness Psychiatric: No anhedonism, No anxiety, No depression symptoms, No insomnia, No substance abuse Heme: No abnormal bleeding/bruising, No clotting problems, No night sweats, No swollen lymph nodes Endo: No excessive thirst, No excessive urination, No fatigue Skin: No bleeding, No color change, No itch, No new/changing skin lesions, No rash Objective Vital Signs Date Time Temp Pulse Resp B/P Pulse Ox O2 Delivery O2 Flow Rate FiO2 11/21/16 14:00 95 15 114/61 93 2.0 4/10/17 12:00 36.7 113 23 143/79 92 2.0 11/21/16 12:00 94 Nasal Cannula 2.0 11/21/16 10:00 96 22 133/77 93 11/21/16 08:00 94 Nasal Cannula 2.0 11/21/16 08:00 36.6 101 23 148/101 92 Nasal Cannula 2.0 11/21/16 06:05 92 14 119/78 94 11/21/16 05:50 92 17 95 11/21/16 04:05 94 13 93 11/21/16 04:00 95 Nasal Cannula 3.0 11/21/16 04:00 93 15 120/61 93 11/21/16 03:50 93 16 93 11/21/16 02:50 92 15 95 11/21/16 02:35 91 14 95 11/21/16 02:20 91 15 95 11/21/16 02:05 92 14 95 11/21/16 02:00 93 18 131/68 95 11/21/16 01:50 98 20 96 11/21/16 00:05 95 14 96 11/21/16 00:00 94 18 134/65 96 11/21/16 00:00 95 Nasal Cannula 3.0 11/20/16 23:50 94 15 95 11/20/16 22:05 91 24 92 11/20/16 22:00 92 16 126/68 94 11/20/16 21:50 86 17 93 11/20/16 20:20 84 20 95 11/20/16 20:11 36.6 82 19 120/61 95 11/20/16 20:05 83 18 95 11/20/16 20:00 95 Nasal Cannula 3.0 11/20/16 20:00 81 19 120/61 95 11/20/16 19:50 79 24 96 11/20/16 18:00 85 17 121/67 95 Nasal Cannula 3.0 11/20/16 16:00 36.7 80 23 122/66 97 Nasal Cannula 3.0 11/20/16 16:00 Nasal Cannula 3.0 Physical Exam General Appearance: WD/WN, no apparent distress, + obese Eyes: normal inspection, PERRL, EOMI, sclerae normal ENT: normal ENT inspection, hearing grossly normal, pharynx normal Neck: supple, no adenopathy, thyroid normal, no JVD, no carotid bruits, trachea midline Respiratory/Chest: chest non-tender, normal breath sounds, no respiratory distress, no accessory muscle use, + decreased breath sounds Cardiovascular: regular rate, rhythm, no edema, no gallop, no JVD, no murmur Abdomen: normal bowel sounds, non tender, soft, no organomegaly, no pulsatile mass Extremities: normal range of motion, non-tender, normal inspection, no pedal edema, no calf tenderness, normal capillary refill, pelvis stable Neurologic/Psychiatric: delivery assistant II-XII nml as tested, no motor/sensory deficits, alert, normal mood/affect, oriented x 3 Skin: normal color, warm/dry, no rash Lymphatic: no adenopathy Laboratory Results Last 24 Hours Test 11/21/16 04:32 White Blood Count 6.52 K/uL Red Blood Count 3.50 M/uL Hemoglobin 9.9 g/dL Hematocrit 31.4 % Mean Corpuscular Volume 89.7 fL Mean Corpuscular Hemoglobin 28.3 pg Mean Corpuscular Hemoglobin Concent 31.5 g/dl RDW Standard Deviation 51.5 fL RDW Coefficient of Variation 15.7 % Platelet Count 164 K/uL Mean Platelet Volume 10.4 fL Sodium Level 141 mmol/L Potassium Level 4.1 mmol/L Chloride Level 106 mmol/L Carbon Dioxide Level 28 mmol/L Anion Gap 7.0 mmol/L Blood Urea Nitrogen 6 mg/dl Creatinine 0.49 mg/dl Est Creatinine Clear Calc Drug Dose 110.6 ml/min Estimated GFR () 114.4 Estimated GFR (Non- 98.7 BUN/Creatinine Ratio 12.5 Random Glucose 63 mg/dl Calcium Level 7.6 mg/dl Phosphorus Level 2.2 mg/dl Magnesium Level 2.4 mg/dl Total Bilirubin 0.4 mg/dl Aspartate Amino Transf (AST/SGOT) 14 U/L Alanine Aminotransferase (ALT/SGPT) 11 U/L Alkaline Phosphatase 84 U/L Total Protein 5.2 gm/dl Albumin 2.1 gm/dl Globulin 3.1 gm/dl Albumin/Globulin Ratio 0.7 Assessment and Plan 71 yo female with PMH of HTN, GERD and vertigo. Admitted on 11/12/2016 because of syncope (also happened about 2 years ago) 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 had a pacemaker on 11/14 but unfortunately there was a complication on 11/15 with the right ventricle wire going through the ventricle she developed a pericardial tamponade and a drain was placed, then developed a left hemothorax and chest tube was placed subsequently developed an ileus requiring NGT decompression, patient has some bowel movement after fleet in edema today Hypotension due to tamponade: resolved, off of dobutamine, tamponade resolved with drain that was then pulled 11/17/2016 Left hemothorax: continue chest tube, stable CT surgery on the case Acute blood loss anemia: Hb stable, did receive 4 units total Cardiac tamponade: resolved with drain, hemodynamically stable, clear heart sounds today SBO/ileus: Improved after fleet edema Syncope: secondary to transient complete heart block pacer on 11/14/2016, revision of leads on 11/16/2016, functioning appropriately Paroxysmal atrial fibrillation: occurred briefly and resolved with Amiodarone, cardiology recommends to continue for a month CHRISTIAN: resolved with fluids and BP support, making adequate urine, May planning to discontinue Rodriguez catheter some Leukocytosis and fevers: no clear source of infection, on Vancomycin and Zosyn initially, stopped without clear source of infection plan: keep in ICU, 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
--- NOTE | 2016-11-21 15:49 | DIAGNOSTIC IMAGING REPORT ---
SINGLE VIEW CHEST CLINICAL HISTORY: Status post chest tube manipulation. FINDINGS: An AP, portable, upright chest radiograph is compared to study performed the same day 11/21/2016. The examination is degraded by portable technique and patient rotation. A right internal jugular central venous catheter and an enteric tube are unchanged in position. A left-sided chest tube is also unchanged. A cardiac pacemaker is again noted. The heart is enlarged and there is atherosclerotic calcification of the thoracic aorta. Mild pulmonary vascular congestion persists. There are pleural effusions, left larger than right with left basilar airspace consolidation. No pneumothorax is seen. The skeletal structures are osteopenic. The bony thorax is grossly intact. IMPRESSION: 1. Stable lines and tubes. 2. No significant change in bilateral pleural effusions, left larger than right and left lower lobe opacities. Electronically signed by: Patricio Arzate M.D. 11/21/2016 3:47 PM Dictated Date/Time: 11/21/2016 3:45 PM
[2016-11-22] VITALS (14 sets, daily range): BP systolic 108–145; BP diastolic 61–84; PULSE 95–118; TEMP 36.5–37.1; O2SAT 86–96
[2016-11-22] MEDS: FENTANYL CITRATE INJ 50 MCG/1 ML 2 ML VIAL IV PRN ×2 (00:03→12:00)
[2016-11-22] MEDS: OXYCODONE HCL IR 5 MG TAB (IMMEDIATE RELEASE) PO PRN ×4 (04:07→21:00)
[2016-11-22 05:31] LABS: HEMATOCRIT 33.3 % (37-47); MEAN CELL VOLUME 88.3 fL (80-100); MEAN CORPUSCULAR HEMOGLOBIN 28.9 pg (25-34); MEAN CORPUSCULAR HGB CONC 32.7 g/dl (32-36); MEAN PLATELET VOLUME 10.1 fL (7.4-10.4); PLATELET COUNT 210 K/uL (130-400); RED BLOOD COUNT 3.77 M/uL (4.2-5.4); WHITE BLOOD COUNT 9.48 K/uL (4.8-10.8)
[2016-11-22 05:49] LABS: BUN/CREATININE RATIO 8.4 (10-20); CREATININE 0.55 mg/dl (0.60-1.20); POTASSIUM 3.9 mmol/L (3.5-5.1)
[2016-11-22 05:57] LABS: PHOSPHORUS 2.8 mg/dl (2.5-4.9)
[2016-11-22] MEDS: AMIODARONE / D5W 200 ML IV SCH (05:57)
[2016-11-22] MEDS: HEPARIN SOD 5000 UNIT/0.5 ML CARP SQ SCH ×3 (05:58→21:06)
[2016-11-22] MEDS ORDERED: POTASSIUM CHLORIDE 20 MEQ TABCR PO ONE (06:15)
[2016-11-22] MEDS: CEROVITE ADV FORMULA TAB PO SCH ×2 (08:08→21:05)
[2016-11-22] MEDS: IPRATROPIUM BROMIDE/ALBUTEROL respimat INH INH SCH ×4 (08:09→21:05)
[2016-11-22] MEDS: POLYETHYLENE (MIRALAX) 17 GM PACK PO SCH (08:09)
--- NOTE | 2016-11-22 08:29 | DIAGNOSTIC IMAGING REPORT ---
CHEST ONE VIEW PORTABLE CLINICAL HISTORY: Pleural effusion. COMPARISON STUDY: Chest radiograph November 21, 2016 2:35 PM. FINDINGS: A left chest tube remains in place. There is a small left apical pneumothorax. A small left pleural effusion is noted. There is also small right pleural effusion. There is bilateral lower lobe airspace opacity with volume loss. A right internal jugular central line remains in place. There is a dual lead left subclavian pacemaker. Cardiomediastinal silhouette is stable. There is pulmonary vascular congestion. IMPRESSION: 1. Small left apical pneumothorax. Left chest tube in place. 2. Small bilateral pleural effusions, left larger than the right. 3. Persistent bilateral lower lobe opacity with volume loss which could reflect lower lobe atelectasis or consolidation. Electronically signed by: Doug Schuler M.D. 11/22/2016 8:27 AM Dictated Date/Time: 11/22/2016 8:24 AM
[2016-11-22] MEDS ORDERED: ALTEPLASE, RECOMBINANT 1 MG/ML 2 ML VIAL IPL ONE (08:45)
--- NOTE | 2016-11-22 08:53 | PROGRESS NOTE ---
DATE: 11/22/2016 Ms. Villegas is seen today. Her NG tube is out. She has just finished a house breakfast. She moved her bowels. She drained about 750 mL of dark blood after we placed the TPA. A gradient is a bit better. Her vital signs are stable. Her x-ray looks better, but she still has some fluid. We are going to repeat our TPA today. It should be noted her hemoglobin went up a gram which is probably due to her mobilizing fluid. We are going to place another dose of this tissue plasminogen activator later today.
[2016-11-22] MEDS: PANTOprazole SOD 40 MG TAB PO SCH (09:26)
--- NOTE | 2016-11-22 09:27 | OPERATIVE REPORT ---
DATE OF OPERATION: 11/22/2016 DATE OF PROCEDURE: 11/22/2016. PROCEDURE: Insulation tissue plasminogen activator in right chest tube. SURGEON: Dr. Arceo. MISSILE INSPECTOR: Daniel Jamil PA-C. PROCEDURE: Four milligrams of tissue plasminogen activator reconstituted in 50 mL of normal saline injected into the chest tube under sterile conditions. Clamps were reapplied. We will unclamp this in 2 hours. She has improved with this. I attest to the content of the Intraoperative Record and any orders documented therein. Any exceptio ns are noted below.
--- NOTE | 2016-11-22 09:57 | Surgery Progress Note ---
Surgery Progress Note Date of Service Nov 22, 2016. Subjective + bowel movement (multiple), + diet (regular this AM), + flatus (increased), No complaints Objective Vital Signs: Date Time Temp Pulse Resp B/P Pulse Ox O2 Delivery O2 Flow Rate FiO2 11/22/16 06:00 95 19 113/84 94 11/22/16 06:00 36.9 11/22/16 05:00 97 17 94 11/22/16 04:00 94 Nasal Cannula 4.0 11/22/16 04:00 37.1 11/22/16 04:00 102 23 142/65 95 11/22/16 03:00 100 15 95 11/22/16 02:00 98 16 114/65 96 11/22/16 01:00 96 16 94 11/22/16 00:01 37.1 11/22/16 00:00 98 21 145/61 94 11/21/16 23:59 93 Nasal Cannula 4.0 11/21/16 23:00 99 17 96 11/21/16 22:00 90 20 119/65 93 Nasal Cannula 3.0 11/21/16 20:00 95 Nasal Cannula 3.0 11/21/16 20:00 36.7 86 20 159/89 95 Nasal Cannula 3.0 11/21/16 18:00 95 21 128/53 93 Nasal Cannula 3.0 11/21/16 16:00 36.5 91 19 130/50 94 Nasal Cannula 3.0 11/21/16 16:00 95 Nasal Cannula 3.0 11/21/16 14:00 95 15 114/61 93 2.0 11/21/16 12:00 36.7 113 23 143/79 92 2.0 11/21/16 12:00 94 Nasal Cannula 2.0 11/21/16 10:00 96 22 133/77 93 Abdomen: non tender, soft Laboratory Results: Results Past 24 Hours Test 11/22/16 04:44 11/22/16 06:21 Range/Units White Blood Count 9.48 4.8-10.8 K/uL Red Blood Count 3.77 4.2-5.4 M/uL Hemoglobin 10.9 12.0-16.0 g/dL Hematocrit 33.3 37-47 % Mean Corpuscular Volume 88.3 80-100 fL Mean Corpuscular Hemoglobin 28.9 25-34 pg Mean Corpuscular Hemoglobin Concent 32.7 32-36 g/dl RDW Standard Deviation 50.5 36.4-46.3 fL RDW Coefficient of Variation 15.6 11.5-14.5 % Platelet Count 210 130-400 K/uL Mean Platelet Volume 10.1 7.4-10.4 fL Sodium Level 141 136-145 mmol/L Potassium Level 3.9 3.5-5.1 mmol/L Chloride Level 106 98-107 mmol/L Carbon Dioxide Level 28 21-32 mmol/L Anion Gap 7.0 3-11 mmol/L Blood Urea Nitrogen 5 7-18 mg/dl Creatinine 0.55 0.60-1.20 mg/dl Est Creatinine Clear Calc Drug Dose 98.6 ml/min Estimated GFR () 110.1 Estimated GFR (Non- 95.0 BUN/Creatinine Ratio 8.4 10-20 Random Glucose 84 70-99 mg/dl Calcium Level 8.0 8.5-10.1 mg/dl Phosphorus Level 2.8 2.5-4.9 mg/dl Magnesium Level 2.0 1.8-2.4 mg/dl Bedside Glucose 97 70-90 mg/dl Assessment & Plan ileus resolved tolerating diet will sign off
[2016-11-22] MEDS ORDERED: AMIODARONE 200 MG TAB PO ONE (12:06)
--- NOTE | 2016-11-22 12:11 | Critical Care Progress Note ---
Critical Care Progress Note Date of Service Nov 22, 2016. Attending Dr. Flores Subjective Worthing "better than she has all week". Was sitting out in chair comfortably. Reports she had a small bowel movement as well yesterday. Objective GENERAL: Awake, alert, well-appearing, in no acute distress, sitting in chair comfortably. HENT: Normocephalic, atraumatic. Oropharynx unremarkable. EYES: Normal conjunctiva. Sclera non-icteric. NECK: Supple. No nuchal rigidity. FROM. No JVD. RESPIRATORY: Clear to auscultation. Left chest tube in place. CARDIAC: Regular rate, normal rhythm. Extremities warm and well perfused. Pulses equal. R IJ in place. ABDOMEN: Soft, non-distended. No tenderness to palpation. No rebound or guarding. No masses. RECTAL: Deferred. MUSCULOSKELETAL: Chest examination reveals no tenderness. The back is symmetrical on inspection without obvious abnormality. There is no CVA tenderness to palpation. No joint edema. LOWER EXTREMITIES: Calves are equal size bilaterally and non-tender. No edema. No discoloration. NEURO: Normal sensorium. No sensory or motor deficits noted. SKIN: No rash or jaundice noted. Current SOFA Score SOFA Score Response (Comments) Value SaO2 / FIO2 221 - 301 1 Level of Hypotension No Hypotension 0 Total 1 Previous SOFA Scores 1 on 11/21/16 Assessment & Plan This is a 71 year old female who initially presented 11/12/16 after a syncopal episode after having a BM. She was found to have a transient complete heart block. On 11/14 she had a dual-chamber pacemaker placed. The next day she had another syncopal episode, and echo showed the pacemaker leads had punctured the RV wall causing a pericardial effusion. She then had a pericardial drain placed in the cytology laboratory manager. She was also found to have had a moderate left sided hemothorax , so a chest tube was placed to suction. Her pacemaker leads were revised successfully. She was tranfused 4 units PRBC in total. She then had coffee ground emesis, so was started on prophylaxis for a GI bleed, then developed an ileus, which has now resolved. Problems: Complete heart block, s/p permanent pacemaker insertion S/p hemorrhagic pericardial effusion with tamponade. S/p pericardial drain now removed Left hemothorax. S/p left chest tube Ileus, resolved. Paroxysmal a-fib, on amiodarone. Shock - resolved Plan: NEURO: Continue PRN analgesia Unable to institute stroke prophylaxis for a-fib secondary to recent hemorrhagic events CVS: Remains off pressors. Converting IV to PO Amiodarone 200mg daily - Remove central line today RESP: CT surgery provided tPA through pleural catheter, blood appears to be old. CXR (11/22): Small apical L pneumothorax, left chest tube in place, small bilateral pleural effusions, left > right. Persistent bilateral lower lobe opacity with volume loss which could reflect lower lobe atelectasis or consolidation. GI: Tolerating full liquids, advance diet as tolerated Protonix daily PO from now on Reglan added as prokinetic Renal: Diuresing well, so far today has put out 1180mL Net fluid balance: +42144 mL - 40meQ of KCL today - Remove rodriguez catheter today ID: No further antibiotics. DVT prophylaxis: SCD. Heparin 5000units times a day The patient is stable for transfer to telemetry. Please do not hesitate to contact us with any questions or concerns. Resident Physician Supervision Note: Dr. Lyons was resident physician during care of patient. I separately evaluated patient and did history and exam. I discussed the case with the resident and generally agree with the findings and plan. Normalization of patient today, discontinue central line, discontinue Rodriguez, remains hemodynamically stable. Acceptable transfer to medical surgical floor, CT surgery also following chest tube, discussed with Dr. Henderson and Dr. Del Valle. Documented By: Cesar Flores DO Consults & Procedures Consultants: Cardiology, thoracic surgery, general surgery Procedures: 11/14/16 - PPM 11/15/16 - Pericardiocentesis with pericardial drain 11/15/16 - Left chest tube 28 Fr 11/16/16- PPM revision 11/17/2016- removal of right femoral sheath, placement of right jugular triple- lumen catheter, right axillary arterial line 11/18/2016- NG tube removed in AM, reinserted in PM Data Medications: Current Inpatient Medications Medications (Trade) Dose Ordered Sig/Barb Route Start Time Stop Time Status Last Admin Dose Admin Al Hydrox/Mg Hydrox/Simethicone (Maalox Max Susp) 15 ml Q4H PRN PO 11/12/16 12:15 12/12/16 12:14 Magnesium Hydroxide (Milk Of Magnesia Susp) 30 ml Q12H PRN PO 11/12/16 12:15 12/12/16 12:14 Albuterol/ Ipratropium (Combivent Respimat Inh) 1 puffs QID INH 11/12/16 17:00 12/12/16 16:59 11/22/16 12:00 1 PUFFS Meclizine HCl (Antivert Tab) 25 mg TID PRN PO 11/12/16 16:30 12/12/16 16:29 Nitroglycerin (Nitrostat Tab) 0.4 mg PRN PRN UT 11/12/16 16:30 12/12/16 16:29 Multivitamins/ Minerals (Multivitamin W/ Minerals Tab) 1 tab BID PO 11/12/16 21:00 12/12/16 20:59 11/22/16 08:08 1 TAB Tramadol HCl (Ultram Tab) 50 mg BID PRN PO 11/12/16 16:30 12/12/16 16:29 11/14/16 15:46 50 MG Oxycodone HCl (Roxicodone Immediate Rel Tab) 5 mg Q4 PRN PO 11/14/16 13:45 11/28/16 13:44 11/22/16 08:08 5 MG Fentanyl Citrate 50 mcg 50 mcg Q2H PRN IV 11/15/16 18:45 11/29/16 18:44 11/22/16 12:00 50 MCG Acetaminophen (Ofirmev Iv) 100 ml @ 400 mls/hr Q8H PRN IV 11/16/16 08:15 12/16/16 08:14 11/16/16 13:10 400 MLS/HR Polyethylene (Miralax Powder Packet) 17 gm DAILY PO 11/21/16 09:00 12/21/16 08:59 11/22/16 08:09 17 GM Sodium Biphosphate/ Sodium Phosphate (Fleet Enema) 132 ml ONE PRN UT 11/21/16 07:00 12/21/16 06:59 11/21/16 07:39 132 ML Metoclopramide HCl (Reglan Inj) 10 mg Q6H PRN IV 11/21/16 11:15 12/21/16 11:14 Heparin Sodium (Porcine) (Heparin Sq 5000 Unit/0.5ml) 5,000 unit Q8 SQ 11/21/16 14:00 12/21/16 13:59 11/22/16 05:58 5,000 UNIT Acetaminophen (Tylenol Tab) 1,000 mg Q8 PRN PO 11/21/16 11:30 12/21/16 11:29 11/21/16 11:59 1,000 MG Pantoprazole Sodium (Protonix Tab) 40 mg QAM PO 11/22/16 09:00 12/22/16 08:59 11/22/16 09:26 40 MG Amiodarone HCl (Cordarone Tab) 200 mg QAM PO 11/23/16 09:00 12/23/16 08:59 UNV Amiodarone HCl (Cordarone Tab) 200 mg 1206 ONCE PO 11/22/16 12:06 11/22/16 12:07 UNV I & O: 24-Hour Column 11/22/16 08:00 Intake Total 2695 ml Output Total 3970 ml Balance -1275 ml Vital Signs: Date Time Temp Pulse Resp B/P Pulse Ox O2 Delivery O2 Flow Rate FiO2 11/22/16 06:00 95 19 113/84 94 11/22/16 06:00 36.9 11/22/16 05:00 97 17 94 11/22/16 04:00 94 Nasal Cannula 4.0 11/22/16 04:00 37.1 11/22/16 04:00 102 23 142/65 95 11/22/16 03:00 100 15 95 11/22/16 02:00 98 16 114/65 96 11/22/16 01:00 96 16 94 11/22/16 00:01 37.1 11/22/16 00:00 98 21 145/61 94 11/21/16 23:59 93 Nasal Cannula 4.0 11/21/16 23:00 99 17 96 11/21/16 22:00 90 20 119/65 93 Nasal Cannula 3.0 11/21/16 20:00 95 Nasal Cannula 3.0 11/21/16 20:00 36.7 86 20 159/89 95 Nasal Cannula 3.0 11/21/16 18:00 95 21 128/53 93 Nasal Cannula 3.0 11/21/16 16:00 36.5 91 19 130/50 94 Nasal Cannula 3.0 11/21/16 16:00 95 Nasal Cannula 3.0 11/21/16 14:00 95 15 114/61 93 2.0 Laboratory Results: Last 24 Hours Test 11/22/16 04:44 11/22/16 06:21 White Blood Count 9.48 K/uL Red Blood Count 3.77 M/uL Hemoglobin 10.9 g/dL Hematocrit 33.3 % Mean Corpuscular Volume 88.3 fL Mean Corpuscular Hemoglobin 28.9 pg Mean Corpuscular Hemoglobin Concent 32.7 g/dl RDW Standard Deviation 50.5 fL RDW Coefficient of Variation 15.6 % Platelet Count 210 K/uL Mean Platelet Volume 10.1 fL Sodium Level 141 mmol/L Potassium Level 3.9 mmol/L Chloride Level 106 mmol/L Carbon Dioxide Level 28 mmol/L Anion Gap 7.0 mmol/L Blood Urea Nitrogen 5 mg/dl Creatinine 0.55 mg/dl Est Creatinine Clear Calc Drug Dose 98.6 ml/min Estimated GFR () 110.1 Estimated GFR (Non- 95.0 BUN/Creatinine Ratio 8.4 Random Glucose 84 mg/dl Calcium Level 8.0 mg/dl Phosphorus Level 2.8 mg/dl Magnesium Level 2.0 mg/dl Bedside Glucose 97 mg/dl Resident Tracking Resident Involvement: Resident Care Provided Care Provided: Adult Hospital Medicine (ICU)
--- NOTE | 2016-11-22 12:19 | CARDIOLOGY PROGRESS NOTE ---
DATE: 11/22/2016 This morning Ms. Villegas complains primarily of left-sided chest discomfort with some radiation into her shoulder and arm. She states that this is a more severe discomfort that has lasted for approximately 1/2 an hour. Precordial chest discomfort is not as severe, there is some pleuritic component to it. She otherwise has been eating and tolerating a regular diet. She has no significant abdominal complaints. She claims to have had some very small bowel movement. She was up in a chair yesterday without notable dizziness. She states that her breathing is normal. PHYSICAL EXAMINATION: GENERAL: She was alert and oriented, mood and affect appeared normal. She appeared somewhat uncomfortable related to the symptoms described above but she answered all questions appropriately. CURRENT VITAL SIGNS: Include blood pressure 113/84 with a pulse of 95. LUNGS: Auscultation of her lung apices revealed them to be clear. There were some occasional crackles on the left side but the right appeared to be mostly clear. CARDIAC EXAMINATION: Revealed her to be in a regular rhythm. I do not appreciate any rub today. LABORATORY STUDIES: This morning include a white cell count of 9.4, hemoglobin of 10.9, a platelet count of 210. Sodium was 141, potassium was 3.9, BUN was 5, creatinine was 0.5. Single view EKG was obtained again this morning. This revealed a very small pneumothorax and persistent pleural effusions, left larger than the right. ASSESSMENT AND PLAN: 1. Complete heart block: Currently resolved with repositioning of right ventricular pacing lead. Normal function on last interrogation, no evidence of heart block on telemetry. 2. Cardiac tamponade. She is status post pericardial drain and evacuation. Drain was removed. No evidence of hemodynamic compromise currently. She may have an element of pericarditis but rub was not heard today and overall her symptoms appear to be improving with respect to precordial discomfort. 3. Hemothorax. The patient undergoing TPA administration in the hopes of more complete evacuation. 4. Atrial fibrillation, no recurrent event. She is currently on amiodarone infusion, which will be transitioned to oral amiodarone, 200 mg a day seems reasonable at this time. 5. Ileus, this appears to be resolved. NG tube has been discontinued.
--- NOTE | 2016-11-22 13:06 | Progress Note ---
Subjective Date of Service: Nov 22, 2016. Subjective Pt evaluation today including: conversation w/ patient, conversation w/ family , physical exam, chart review, lab review, review of studies, review of inpatient medication list Again had TPA for the treatment of possible chest tube clot today, >300ml drainage coming out after unclamping, Report significant left side chest wall pain, and pain getting worse is presently in the TPA treatment Eating lunch, has bowel movement Problem List Medical Problems: (1) Asthma, Unspecified Status: Chronic (2) Esophageal Reflux Status: Chronic (3) Hypertension Nos Status: Chronic (4) Lumb/Lumbosac Disc Degen Status: Chronic (5) Macular Degeneration Nos Status: Chronic (6) Osteoporosis Nos Status: Chronic (7) Syncope Status: Acute (8) Vertigo Status: Chronic Review of Systems Constitutional: + fatigue, No chills, No fever, No problem reported, No sweats , No weakness, No weight loss Eyes: No diplopia, No discharge, No eye pain, No redness, No worsening of vision ENT: No dental problems, No hearing loss, No nasal symptoms, No sore throat, No tinnitus, No trouble swallowing, No unusual epistaxis Respiratory: + problem reported (left chest wall pain), No cough, No dyspnea at rest, No dyspnea on exertion, No hemoptysis, No shortness of breath, No sputum, No wheezing Cardiac: No PND, No chest pain, No claudication, No edema, No orthopnea, No palpitations Abdomen: No constipation, No diarrhea, No nausea, No pain, No vomiting Musculoskeletal: No calf pain, No joint pain, No muscle pain, No swelling Female : No abnormal vaginal bleeding, No dysuria, No hematuria, No incontinence, No urinary frequency, No vaginal discharge Neurologic: No balance problems, No memory loss, No numbness/tingling, No paralysis, No vertigo, No weakness Psychiatric: No anhedonism, No anxiety, No depression symptoms, No insomnia, No substance abuse Heme: No abnormal bleeding/bruising, No clotting problems, No night sweats, No swollen lymph nodes Endo: No excessive thirst, No excessive urination, No fatigue Skin: No bleeding, No color change, No itch, No new/changing skin lesions, No rash Objective Vital Signs Date Time Temp Pulse Resp B/P Pulse Ox O2 Delivery O2 Flow Rate FiO2 11/22/16 12:00 93 Nasal Cannula 4.0 11/22/16 12:00 36.9 106 27 134/83 92 11/22/16 10:00 96 26 123/78 92 11/22/16 08:00 94 Nasal Cannula 4.0 11/22/16 08:00 37.0 104 17 117/65 92 11/22/16 06:00 95 19 113/84 94 11/22/16 06:00 36.9 11/22/16 05:00 97 17 94 11/22/16 04:00 94 Nasal Cannula 4.0 11/22/16 04:00 37.1 11/22/16 04:00 102 23 142/65 95 11/22/16 03:00 100 15 95 11/22/16 02:00 98 16 114/65 96 11/22/16 01:00 96 16 94 11/22/16 00:01 37.1 11/22/16 00:00 98 21 145/61 94 11/21/16 23:59 93 Nasal Cannula 4.0 11/21/16 23:00 99 17 96 11/21/16 22:00 90 20 119/65 93 Nasal Cannula 3.0 11/21/16 20:00 95 Nasal Cannula 3.0 11/21/16 20:00 36.7 86 20 159/89 95 Nasal Cannula 3.0 11/21/16 18:00 95 21 128/53 93 Nasal Cannula 3.0 11/21/16 16:00 36.5 91 19 130/50 94 Nasal Cannula 3.0 11/21/16 16:00 95 Nasal Cannula 3.0 11/21/16 14:00 95 15 114/61 93 2.0 Physical Exam General Appearance: WD/WN, no apparent distress, + thin, + pertinent finding ( frail) Eyes: normal inspection, PERRL, EOMI, sclerae normal ENT: normal ENT inspection, hearing grossly normal, pharynx normal Neck: supple, no adenopathy, thyroid normal, no JVD, no carotid bruits, trachea midline Respiratory/Chest: chest non-tender, normal breath sounds, no respiratory distress, no accessory muscle use, + decreased breath sounds, + pertinent finding (left chest wall chest tube in place) Cardiovascular: regular rate, rhythm, no edema, no gallop, no JVD, no murmur Abdomen: normal bowel sounds, non tender, soft, no organomegaly, no pulsatile mass Extremities: normal range of motion, non-tender, normal inspection, no pedal edema, no calf tenderness, normal capillary refill, pelvis stable Neurologic/Psychiatric: 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 II-XII nml as tested, no motor/sensory deficits, alert, normal mood/affect, oriented x 3 Skin: normal color, warm/dry, no rash Lymphatic: no adenopathy Laboratory Results Last 24 Hours Test 11/22/16 04:44 11/22/16 06:21 White Blood Count 9.48 K/uL Red Blood Count 3.77 M/uL Hemoglobin 10.9 g/dL Hematocrit 33.3 % Mean Corpuscular Volume 88.3 fL Mean Corpuscular Hemoglobin 28.9 pg Mean Corpuscular Hemoglobin Concent 32.7 g/dl RDW Standard Deviation 50.5 fL RDW Coefficient of Variation 15.6 % Platelet Count 210 K/uL Mean Platelet Volume 10.1 fL Sodium Level 141 mmol/L Potassium Level 3.9 mmol/L Chloride Level 106 mmol/L Carbon Dioxide Level 28 mmol/L Anion Gap 7.0 mmol/L Blood Urea Nitrogen 5 mg/dl Creatinine 0.55 mg/dl Est Creatinine Clear Calc Drug Dose 98.6 ml/min Estimated GFR () 110.1 Estimated GFR (Non- 95.0 BUN/Creatinine Ratio 8.4 Random Glucose 84 mg/dl Calcium Level 8.0 mg/dl Phosphorus Level 2.8 mg/dl Magnesium Level 2.0 mg/dl Bedside Glucose 97 mg/dl Assessment and Plan 71 yo female with PMH of HTN, GERD and vertigo. Admitted on 11/12/2016 because of syncope (also happened about 2 years ago) 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 had a pacemaker on 11/14 but unfortunately there was a complication on 11/15 with the right ventricle wire going through the ventricle she developed a pericardial tamponade and a drain was placed, then developed a left hemothorax and chest tube was placed subsequently developed an ileus requiring NGT decompression, patient has some bowel movement after fleet in edema today Hypotension due to tamponade: resolved, off of dobutamine, tamponade resolved with drain that was then pulled 11/17/2016 Left hemothorax: continue on chest tube, CT surgery on the case, stable Acute blood loss anemia: Hb stable, did receive 4 units total Cardiac tamponade: resolved with drain, hemodynamically stable SBO/ileus: Improved after fleet edema, continue has bowel movement Syncope: secondary to transient complete heart block, pacer on 11/14/2016, revision of leads on 11/16/2016, functioning appropriately Paroxysmal atrial fibrillation: occurred briefly and resolved with Amiodarone, no recurrent event. She was on amiodarone infusion, be transitioned to oral amiodarone, 200 mg a day per recommend from cardiology , cardiology recommends to continue for a month, continue oral amiodarone CHRISTIAN: resolved with fluids and BP support, Leukocytosis and fevers: no clear source of infection, on Vancomycin and Zosyn initially, stopped without clear source of infection plan: tele, , biotechnician, surgeon and dredge hand input appreciated need rehab once medically ready for discharge Continued [facility] stay due to: other Discharge planning: home
[2016-11-22] MEDS: ACETAMINOPHEN IV 100 ML IV PRN (14:50)
[2016-11-23] VITALS (7 sets, daily range): BP systolic 86–117; BP diastolic 54–67; PULSE 85–110; TEMP 36.5–37.1; O2SAT 91–93
[2016-11-23] MEDS: TRAMADOL HCL 50 MG TAB PO PRN ×2 (02:27→18:09)
[2016-11-23 05:40] LABS: BASO % 0.3 %; BASO ABS # 0.03 K/uL (0-0.2); COMPLETE YES; HEMATOCRIT 33.5 % (37-47); IG% 0.5 %; LYMPH ABS # 0.89 K/uL (1.2-3.4); MEAN CELL VOLUME 87.2 fL (80-100); MEAN CORPUSCULAR HEMOGLOBIN 27.9 pg (25-34); MEAN CORPUSCULAR HGB CONC 31.9 g/dl (32-36); MEAN PLATELET VOLUME 9.7 fL (7.4-10.4); MONO % 8.5 %; NEUT % 79.7 %; PLATELET COUNT 211 K/uL (130-400); RED BLOOD COUNT 3.84 M/uL (4.2-5.4); WHITE BLOOD COUNT 9.91 K/uL (4.8-10.8)
[2016-11-23] MEDS: HEPARIN SOD 5000 UNIT/0.5 ML CARP SQ SCH ×3 (06:01→21:36)
[2016-11-23] MEDS ORDERED: ALTEPLASE, RECOMBINANT 1 MG/ML 2 ML VIAL IPL ONE (07:30)
--- NOTE | 2016-11-23 07:33 | DIAGNOSTIC IMAGING REPORT ---
CHEST CT WITHOUT CONTRAST CT DOSE: 373.59 mGy.cm HISTORY: pleural effusion TECHNIQUE: Multiaxial CT images of the chest were performed without contrast. COMPARISON: Chest CT 11/12/2016. Abdomen and pelvis CT 11/15/2016. FINDINGS: The central airways are patent. A small left hemopneumothorax has decreased in size. Left-sided chest tube terminates posteriorly within the hemopneumothorax. A small right pleural effusion is new from the prior study. Left-sided pacer leads have been repositioned and appear to terminate within the cardiac borders. No significant pericardial effusion. Small amount of pneumomediastinum seen within the left anterior cardiophrenic angle. There is near complete consolidation of the bilateral lower lobes, left greater than right. Normal caliber thoracic aorta. No significant mediastinal hematoma. No mediastinal or hilar lymphadenopathy. The visualized liver and spleen are unremarkable. IMPRESSION: 1. Small left hemopneumothorax which is decreased in size. Left-sided chest tube appears to be in good position. 2. Small right pleural effusion has developed in the interval. 3. Left-sided pacer leads have been repositioned and appear to terminate within the cardiac borders. No significant pericardial effusion. 4. Small amount of pneumomediastinum which is similar to the prior study. 5. Near complete consolidation of the bilateral lower lobes, left greater than right. This may represent atelectasis or pneumonia. Electronically signed by: Reece Alaniz M.D. 11/23/2016 7:31 AM Dictated Date/Time: 11/23/2016 7:23 AM
[2016-11-23] MEDS: POLYETHYLENE (MIRALAX) 17 GM PACK PO SCH (09:10)
[2016-11-23] MEDS: AMIODARONE 200 MG TAB PO SCH (09:10)
[2016-11-23] MEDS: IPRATROPIUM BROMIDE/ALBUTEROL respimat INH INH SCH ×4 (09:10→21:33)
[2016-11-23] MEDS: PANTOprazole SOD 40 MG TAB PO SCH (09:10)
[2016-11-23] MEDS: CEROVITE ADV FORMULA TAB PO SCH ×2 (09:10→21:33)
[2016-11-23] MEDS: OXYCODONE HCL IR 5 MG TAB (IMMEDIATE RELEASE) PO PRN ×2 (09:15→16:17)
[2016-11-23] MEDS: FENTANYL CITRATE INJ 50 MCG/1 ML 2 ML VIAL IV PRN (10:15)
--- NOTE | 2016-11-23 13:27 | Progress Note ---
Progress Note Date of Service Nov 23, 2016. Progress Note [address] in 50 cc sterile water and placed in chest tube a 7:[address] clamped--RN instructed to unclamp it at 10:00 am
--- NOTE | 2016-11-23 14:47 | CARDIOLOGY PROGRESS NOTE ---
DATE: 11/23/2016 SUBJECTIVE: This morning, Mrs. Villegas claims to be feeling fairly well. She continues to have some primarily left-sided chest discomfort that is worse after instillation of TPA. She has some pleuritic chest pain. She has tolerated a regular diet over the past 24 hours and has not had any additional vomiting. She has been up in a chair and denies significant dizziness. PHYSICAL EXAMINATION: GENERAL: She was alert and oriented. Mood and affect appeared appropriate. VITAL SIGNS: Include blood pressure 113/67 with a pulse of 88. LUNGS: Auscultation of the lung apices reveal them to be clear, but there were coarse upper airway sounds and occasional crackles at the bases bilaterally. CARDIAC: Revealed her to be in a regular rhythm but no murmur or rub was appreciated. LABORATORY STUDIES: Today included a white cell count of 9.9, hemoglobin of 10.7, a platelet count of 211. A CT scan of the thorax was obtained today which revealed consolidation of both lower lobes. This may represent atelectasis versus infection. There was a very small apical pneumothorax on the left, no evidence of pericardial effusion. ASSESSMENT AND PLAN: 1. Complete heart block, currently normal functioning dual-chamber permanent pacer. No additional episodes of heart block noted on monitor. 2. Cardiac tamponade secondary to RV perforation, this appears to have resolved. No evidence of effusion on recent CT scan. 3. Hemothorax, appreciate continued efforts of Dr. Arceo and the thoracic surgery team regarding drainage of the left hemothorax. 4. Ileus, this appears to be resolved. 5. Atrial fibrillation. No additional events. The patient has been switched to 200 mg daily of amiodarone which can be continued and change in the outpatient setting once discharged.
--- NOTE | 2016-11-23 15:40 | Progress Note ---
Subjective Date of Service: Nov 23, 2016. Subjective Pt evaluation today including: conversation w/ patient, conversation w/ family , physical exam, chart review, lab review, review of studies, conversation w/ automotive internet sales consultant, review of inpatient medication list Continue had TPA treatment for the possible chest tube clot, has been out of bed with therapist, feeling a little stronger, eating ok. Problem List Medical Problems: (1) Asthma, Unspecified Status: Chronic (2) Esophageal Reflux Status: Chronic (3) Hypertension Nos Status: Chronic (4) Lumb/Lumbosac Disc Degen Status: Chronic (5) Macular Degeneration Nos Status: Chronic (6) Osteoporosis Nos Status: Chronic (7) Syncope Status: Acute (8) Vertigo Status: Chronic Review of Systems Constitutional: + fatigue, No chills, No fever, No problem reported, No sweats , No weakness, No weight loss Eyes: No diplopia, No discharge, No eye pain, No redness, No worsening of vision ENT: No dental problems, No hearing loss, No nasal symptoms, No sore throat, No tinnitus, No trouble swallowing, No unusual epistaxis Respiratory: + cough, + problem reported (left chest wall pain), No dyspnea at rest, No dyspnea on exertion, No hemoptysis, No shortness of breath, No sputum, No wheezing Cardiac: No PND, No chest pain, No claudication, No edema, No orthopnea, No palpitations Abdomen: No constipation, No diarrhea, No nausea, No pain, No vomiting Musculoskeletal: No calf pain, No joint pain, No muscle pain, No swelling Female : No abnormal vaginal bleeding, No dysuria, No hematuria, No incontinence, No urinary frequency, No vaginal discharge Neurologic: No balance problems, No memory loss, No numbness/tingling, No paralysis, No vertigo, No weakness Psychiatric: No anhedonism, No anxiety, No depression symptoms, No insomnia, No substance abuse Heme: No abnormal bleeding/bruising, No clotting problems, No night sweats, No swollen lymph nodes Endo: No excessive thirst, No excessive urination, No fatigue Skin: No bleeding, No color change, No itch, No new/changing skin lesions, No rash Objective Vital Signs Date Time Temp Pulse Resp B/P Pulse Ox O2 Delivery O2 Flow Rate FiO2 11/23/16 12:00 Nasal Cannula 6.0 11/23/16 11:36 36.5 88 21 113/67 91 Nasal Cannula 6.0 11/23/16 08:41 36.6 108 22 107/66 93 Nasal Cannula 4.0 11/23/16 08:00 Nasal Cannula 4.0 11/23/16 04:00 37.1 102 20 99/56 92 Nasal Cannula 4.0 11/23/16 04:00 92 Nasal Cannula 4.0 11/23/16 00:00 37.0 103 20 117/56 92 Nasal Cannula 4.0 11/23/16 00:00 92 Nasal Cannula 4.0 11/22/16 20:00 92 Nasal Cannula 4.0 11/22/16 20:00 36.5 105 23 113/66 92 Nasal Cannula 4.0 11/22/16 16:00 93 Nasal Cannula 5.0 11/22/16 16:00 105 23 108/67 88 Physical Exam General Appearance: WD/WN, no apparent distress, + thin Eyes: normal inspection, PERRL, EOMI, sclerae normal ENT: normal ENT inspection, hearing grossly normal, pharynx normal Neck: supple, no adenopathy, thyroid normal, no JVD, no carotid bruits, trachea midline Respiratory/Chest: chest non-tender, normal breath sounds, no respiratory distress, no accessory muscle use, + decreased breath sounds Cardiovascular: regular rate, rhythm, no edema, no gallop, no JVD, no murmur Abdomen: normal bowel sounds, non tender, soft, no organomegaly, no pulsatile mass Extremities: normal range of motion, non-tender, normal inspection, no pedal edema, no calf tenderness, normal capillary refill, pelvis stable Neurologic/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: 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 nml as tested, no motor/sensory deficits, alert, normal mood/affect, oriented x 3 Skin: normal color, warm/dry, no rash Lymphatic: no adenopathy Laboratory Results Last 24 Hours Test 11/23/16 05:24 White Blood Count 9.91 K/uL Red Blood Count 3.84 M/uL Hemoglobin 10.7 g/dL Hematocrit 33.5 % Mean Corpuscular Volume 87.2 fL Mean Corpuscular Hemoglobin 27.9 pg Mean Corpuscular Hemoglobin Concent 31.9 g/dl Platelet Count 211 K/uL Mean Platelet Volume 9.7 fL Neutrophils (%) (Auto) 79.7 % Lymphocytes (%) (Auto) 9.0 % Monocytes (%) (Auto) 8.5 % Eosinophils (%) (Auto) 2.0 % Basophils (%) (Auto) 0.3 % Neutrophils # (Auto) 7.90 K/uL Lymphocytes # (Auto) 0.89 K/uL Monocytes # (Auto) 0.84 K/uL Eosinophils # (Auto) 0.20 K/uL Basophils # (Auto) 0.03 K/uL RDW Standard Deviation 50.7 fL RDW Coefficient of Variation 15.6 % Immature Granulocyte % (Auto) 0.5 % Immature Granulocyte # (Auto) 0.05 K/uL Assessment and Plan 71 yo female with PMH of HTN, GERD and vertigo admitted on 11/12/2016 because of syncope (also happened about 2 years ago) 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 had a pacemaker on 11/14 but unfortunately there was a complication on 11/15 with the right ventricle wire going through the ventricle she developed a pericardial tamponade and a drain was placed, then developed a left hemothorax and chest tube was placed subsequently developed an ileus requiring NGT decompression, patient has some bowel movement after fleet in edema today Syncope: secondary to transient complete heart block, pacer on 11/14/2016, revision of leads on 11/16/2016, currently normal functioning dual-chamber permanent pacer, functioning appropriately; Cardiac tamponade secondary to RV perforation, this appears to have resolved. No evidence of effusion on recent CT scan. Atrial fibrillation. No additional events. Per tin recovery worker , the patient has been switched to 200 mg daily of amiodarone which can be continued and change in the outpatient setting once discharged. Hemopneumothorax, chest surgeon on the case continue chest tube, TPA treatment for chest tube clot Acute blood loss anemia: Hb stable, did receive 4 units total Cardiac tamponade: resolved with drain, hemodynamically stable CHRISTIAN: resolved with fluids and BP support, Leukocytosis and fevers: no clear source of infection, on Vancomycin and Zosyn initially, stopped without clear source of infection SBO/ileus: Improved after fleet edema, continue has bowel movement plan: tele, , tin recovery worker, surgeon need rehab once medically ready for discharge Continued [facility] stay due to: other Discharge planning: home
--- NOTE | 2016-11-23 16:38 | SURGERY PROGRESS NOTE ---
DATE: 11/23/2016 SUBJECTIVE: Mrs. Villegas was seen today. She looks better to me, although she states she does not feel as well as she did last night. She is on 4 liters of O2 this morning and her saturations are a bit concerning to me because she has atelectasis bilaterally. She could have a pneumonia or atelectasis. I think we are probably dealing with atelectasis. Her hemoglobin has been stable at 10.9 yesterday and 10.7 today. Her white count is only 9,910. I am a bit concerned about this. I think she needs to be ambulating a great deal and to work on her pulmonary toilet. I discussed this with the patient and the nursing staff. We are going to put tissue plasminogen activator into the tube again, but I think that this is becoming less and less of an issue with her.
[2016-11-24] MEDS: FENTANYL CITRATE INJ 50 MCG/1 ML 2 ML VIAL IV PRN (00:04)
[2016-11-24 04:00] VITALS: BP 81/52; PULSE 82; TEMP 36.9; O2SAT 95
[2016-11-24 06:08] LABS: HEMATOCRIT 32.2 % (37-47); MEAN CELL VOLUME 87.5 fL (80-100); MEAN CORPUSCULAR HEMOGLOBIN 27.7 pg (25-34); MEAN CORPUSCULAR HGB CONC 31.7 g/dl (32-36); MEAN PLATELET VOLUME 9.9 fL (7.4-10.4); PLATELET COUNT 240 K/uL (130-400); RED BLOOD COUNT 3.68 M/uL (4.2-5.4); WHITE BLOOD COUNT 9.02 K/uL (4.8-10.8)
[2016-11-24] MEDS: HEPARIN SOD 5000 UNIT/0.5 ML CARP SQ SCH ×3 (06:13→20:15)
[2016-11-24 08:46] VITALS: BP 105/56; PULSE 102; TEMP 36.6; O2SAT 95
--- NOTE | 2016-11-24 08:46 | DIAGNOSTIC IMAGING REPORT ---
CHEST ONE VIEW PORTABLE HISTORY: pleural effusion COMPARISON: Chest 11/22/2016. FINDINGS: Left-sided chest tube is unchanged in position. Small left pleural effusion and left basilar densities have improved. Tiny left apical pneumothorax is also decrease in size. Left-sided dual-chamber pacemaker. The heart is normal in size. Patchy right basilar densities have improved. No pneumomediastinum identified. IMPRESSION: Continued improvement in the left-sided hydropneumothorax. Left-sided chest tube remains unchanged in position. Bibasilar densities have also improved. Electronically signed by: Reece Alaniz M.D. 11/24/2016 8:44 AM Dictated Date/Time: 11/24/2016 8:41 AM
[2016-11-24] MEDS: IPRATROPIUM BROMIDE/ALBUTEROL respimat INH INH SCH ×4 (08:47→20:11)
[2016-11-24] MEDS: POLYETHYLENE (MIRALAX) 17 GM PACK PO SCH (08:47)
[2016-11-24] MEDS: PANTOprazole SOD 40 MG TAB PO SCH (08:48)
[2016-11-24] MEDS: OXYCODONE HCL IR 5 MG TAB (IMMEDIATE RELEASE) PO PRN ×2 (08:48→23:32)
[2016-11-24] MEDS: CEROVITE ADV FORMULA TAB PO SCH ×2 (08:49→20:11)
[2016-11-24] MEDS: AMIODARONE 200 MG TAB PO SCH (08:49)
--- NOTE | 2016-11-24 08:50 | DIAGNOSTIC IMAGING REPORT ---
SINGLE VIEW CHEST CLINICAL HISTORY: Chest tube removal. FINDINGS: An AP, portable, upright chest radiograph is compared to study performed the same day 11/24/2016. The examination is degraded by portable technique and patient rotation. A left-sided chest tube has been removed. A 2-lead cardiac pacemaker is unchanged in position. The heart is enlarged and there is atherosclerotic calcification of the thoracic aorta. The pulmonary vasculature is noncongested. There are pleural effusions, left larger than right with left basilar airspace consolidation. No pneumothorax is seen. The skeletal structures are osteopenic. The bony thorax is grossly intact. IMPRESSION: 1. A chest tube at the left lung base has been removed. No pneumothorax is identified. 2. Cardiomegaly and cardiac pacemaker. There is no radiographic evidence of congestive failure. 3. No significant change in left larger than right pleural effusions with left bibasilar consolidation as compared to study performed earlier today. Electronically signed by: Patricio Arzate M.D. 11/24/2016 8:48 AM Dictated Date/Time: 11/24/2016 8:40 AM
[2016-11-24 09:59] LABS: BUN/CREATININE RATIO 10.4 (10-20); CALCIUM 8.5 mg/dl (8.5-10.1); CREATININE 0.81 mg/dl (0.60-1.20); MAGNESIUM 1.9 mg/dl (1.8-2.4); PHOSPHORUS 4.4 mg/dl (2.5-4.9); POTASSIUM 4.1 mmol/L (3.5-5.1)
--- NOTE | 2016-11-24 11:14 | SURGERY PROGRESS NOTE ---
DATE: 11/24/2016 SUBJECTIVE: Bakari was seen today on 11/24/2016. Her chest x-ray looks a bit better. We did remove her chest tube. While she still had some fluid in her chest, I think it would be better to get this chest tube out. This patient is suffering from hypoxia due to atelectasis in both lower lobes. I explained to her the most important thing she can do is walk, use her incentive spirometer and cough. I would be extremely aggressive in this. We will keep an eye on her and check an x-ray in the morning.
[2016-11-24 12:00] VITALS: BP_SYST 100; BP_SYST 86; BP_DIAS 59; BP_DIAS 63; PULSE 106; TEMP 36.9; O2SAT 93
[2016-11-24] MEDS: TRAMADOL HCL 50 MG TAB PO PRN (13:11)
[2016-11-24] MEDS: ACETAMINOPHEN 500 MG TAB PO PRN (13:11)
--- NOTE | 2016-11-24 13:31 | Progress Note ---
Subjective Date of Service: Nov 24, 2016. Subjective Pt evaluation today including: conversation w/ patient, chart review, lab review, review of studies, conversation w/ knowledge management consultant, review of inpatient medication list Chest tube removed, sitting up, up and walk with therapist, feeling stronger, no other complaint Problem List Medical Problems: (1) Asthma, Unspecified Status: Chronic (2) Esophageal Reflux Status: Chronic (3) Hypertension Nos Status: Chronic (4) Lumb/Lumbosac Disc Degen Status: Chronic (5) Macular Degeneration Nos Status: Chronic (6) Osteoporosis Nos Status: Chronic (7) Syncope Status: Acute (8) Vertigo Status: Chronic Review of Systems Constitutional: No chills, No fatigue, No fever, No problem reported, No sweats , No weakness, No weight loss Eyes: No diplopia, No discharge, No eye pain, No redness, No worsening of vision ENT: No dental problems, No hearing loss, No nasal symptoms, No sore throat, No tinnitus, No trouble swallowing, No unusual epistaxis Respiratory: + shortness of breath (on oxygen was not on oxygen prior to admission), No cough, No dyspnea at rest, No dyspnea on exertion, No hemoptysis , No sputum, No wheezing Cardiac: No PND, No chest pain, No claudication, No edema, No orthopnea, No palpitations Abdomen: No constipation, No diarrhea, No nausea, No pain, No vomiting Musculoskeletal: No calf pain, No joint pain, No muscle pain, No swelling Female : No abnormal vaginal bleeding, No dysuria, No hematuria, No incontinence, No urinary frequency, No vaginal discharge Neurologic: No balance problems, No memory loss, No numbness/tingling, No paralysis, No vertigo, No weakness Psychiatric: No anhedonism, No anxiety, No depression symptoms, No insomnia, No substance abuse Heme: No abnormal bleeding/bruising, No clotting problems, No night sweats, No swollen lymph nodes Endo: No excessive thirst, No excessive urination, No fatigue Skin: No bleeding, No color change, No itch, No new/changing skin lesions, No rash Objective Vital Signs Date Time Temp Pulse Resp B/P Pulse Ox O2 Delivery O2 Flow Rate FiO2 11/24/16 08:46 36.6 102 20 105/56 95 Nasal Cannula 6.0 11/24/16 08:00 Nasal Cannula 6.0 11/24/16 04:00 Nasal Cannula 6.0 11/24/16 04:00 36.9 82 14 81/52 95 Nasal Cannula 6.0 11/23/16 23:59 36.9 85 16 86/61 91 Nasal Cannula 6.0 11/23/16 23:59 Nasal Cannula 6.0 11/23/16 20:00 36.7 98 20 95/54 93 Nasal Cannula 4.0 11/23/16 20:00 Nasal Cannula 6.0 11/23/16 16:00 Nasal Cannula 6.0 11/23/16 15:49 36.7 110 22 107/60 91 Nasal Cannula 7.0 Physical Exam General Appearance: WD/WN, no apparent distress Eyes: normal inspection, PERRL, EOMI, sclerae normal ENT: normal ENT inspection, hearing grossly normal, pharynx normal Neck: supple, no adenopathy, thyroid normal, no JVD, no carotid bruits, trachea midline Respiratory/Chest: chest non-tender, normal breath sounds, no respiratory distress, no accessory muscle use, + decreased breath sounds, + pertinent finding (left lowerMild crackles and wheezing) Cardiovascular: regular rate, rhythm, no edema, no gallop, no JVD, no murmur Abdomen: normal bowel sounds, non tender, soft, no organomegaly, no pulsatile mass Extremities: normal range of motion, non-tender, normal inspection, no pedal edema, no calf tenderness, normal capillary refill, pelvis stable, + swelling ( trace edema) Neurologic/Psychiatric: sandwich maker II-XII nml as tested, no motor/sensory deficits, alert, normal mood/affect, oriented x 3 Skin: normal color, warm/dry, no rash Lymphatic: no adenopathy Laboratory Results Last 24 Hours Test 11/24/16 05:28 11/24/16 08:42 White Blood Count 9.02 K/uL Red Blood Count 3.68 M/uL Hemoglobin 10.2 g/dL Hematocrit 32.2 % Mean Corpuscular Volume 87.5 fL Mean Corpuscular Hemoglobin 27.7 pg Mean Corpuscular Hemoglobin Concent 31.7 g/dl RDW Standard Deviation 50.4 fL RDW Coefficient of Variation 15.6 % Platelet Count 240 K/uL Mean Platelet Volume 9.9 fL Sodium Level 139 mmol/L Potassium Level 4.1 mmol/L Chloride Level 101 mmol/L Carbon Dioxide Level 30 mmol/L Anion Gap 8.0 mmol/L Blood Urea Nitrogen 8 mg/dl Creatinine 0.81 mg/dl Est Creatinine Clear Calc Drug Dose 66.3 ml/min Estimated GFR () 85.3 Estimated GFR (Non- 73.6 BUN/Creatinine Ratio 10.4 Random Glucose 113 mg/dl Calcium Level 8.5 mg/dl Phosphorus Level 4.4 mg/dl Magnesium Level 1.9 mg/dl Assessment and Plan 71 yo female with PMH of HTN, GERD and vertigo admitted on 11/12/2016 because of syncope (also happened about 2 years ago) 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 had a pacemaker on 11/14 but unfortunately there was a complication on 11/15 with the right ventricle wire going through the ventricle. she developed a pericardial tamponade and a drain was placed, then developed a left hemothorax and chest tube was placed subsequently developed an ileus requiring NGT decompression. NG tube, chest tube has been off. Continue improving Hemopneumothorax, chest surgeon on the case Has been with chest tube, TPA treatment for chest tube clot 3 was have good drainage Today chest tube removed Acute blood loss anemia: Hb stable, did receive 4 units total Cardiac tamponade: resolved with drain, hemodynamically stable CHRISTIAN: resolved with fluids and BP support, Leukocytosis and fevers: no clear source of infection, on Vancomycin and Zosyn initially, stopped without clear source of infection SBO/ileus: Improved after fleet enema, continue has bowel movement Syncope: secondary to transient complete heart block, pacer on 11/14/2016, revision of leads on 11/16/2016, currently normal functioning dual-chamber permanent pacer, functioning appropriately; Cardiac tamponade secondary to RV perforation, this appears to have resolved. No evidence of effusion on recent CT scan. Atrial fibrillation. No additional events. Per high school professional , the patient has been switched to 200 mg daily of amiodarone which can be continued and change in the outpatient setting once discharged. plan: MedSurg, PT OT, taper off oxygen need rehab once medically ready for discharge Continued [facility] stay due to: other Discharge planning: home
[2016-11-24 14:26] VITALS: BP 97/63; PULSE 100; TEMP 36.8; O2SAT 95
[2016-11-24] MEDS: FENTANYL 12 MCG/HR TDSY TD SCH (14:54)
[2016-11-24] MEDS: CHECK FENTANYL PATCH PLACEMENT SCH ×2 (14:59→23:33)
[2016-11-24 15:10] VITALS: BP 90/53; PULSE 89; TEMP 36.6; O2SAT 94
[2016-11-24 15:51] VITALS: BP 97/67; PULSE 91; TEMP 36.4; O2SAT 94
--- NOTE | 2016-11-24 16:58 | CARDIOLOGY PROGRESS NOTE ---
DATE: 11/24/2016 SUBJECTIVE: This morning, Mrs. Villegas claims to be feeling somewhat better. This was after her left chest tube was removed. She still has some discomfort primarily in the left side and it is pleuritic in nature. She was up in a chair and more ambulatory throughout the course of the morning. She is tolerating regular diet. No additional nausea or vomiting. She denied a sense of palpitation or significant dizziness. PHYSICAL EXAMINATION: GENERAL: She was alert and oriented, mood and affect appeared normal. She answered all questions appropriately. CURRENT VITAL SIGNS: Include blood pressure of 97/67 with a pulse of 91. LUNGS: Auscultation of her lungs revealed apex to be clear. Occasional crackles with reduced breath sounds at the bases bilaterally. There was some upper airway congestion as well. No expiratory wheezing. CARDIAC EXAMINATION: Revealed her to be in a regular rhythm and I did not appreciate any rubs on exam. ABDOMEN: Softer. LOWER EXTREMITIES: Evaluation of lower extremities did not reveal any significant peripheral edema. LABORATORY STUDIES: Obtained today included a white cell count of 9, hemoglobin of 10.2 and a platelet count of 240. Sodium is 139, potassium is 4.1, BUN was 8, creatinine was 0.81. ASSESSMENT AND PLAN: 1. Complete heart block. This appears to have been resolved with successful implantation of permanent pacemaker. No episodes on telemetry. 2. Cardiac tamponade also resolved, status post drainage. 3. Atrial fibrillation very brief episode during the initial phase of her hospitalization, currently on amiodarone for prophylaxis. 4. Hemothorax. Chest tube was removed today after TPA administration over the past 2 days. 5. Bilateral lower lobe atelectasis versus pneumonia. Hopefully will improve with increased ambulation and activity as well as incentive spirometry. No active signs of infection at this point. 6. Ileus, this appears to be resolved.
[2016-11-25 00:09] VITALS: BP 132/77; PULSE 106; TEMP 37; O2SAT 92
[2016-11-25] MEDS: HEPARIN SOD 5000 UNIT/0.5 ML CARP SQ SCH ×3 (06:05→22:38)
[2016-11-25 06:40] LABS: BUN/CREATININE RATIO 11.9 (10-20); CALCIUM 7.8 mg/dl (8.5-10.1); CREATININE 0.78 mg/dl (0.60-1.20); MAGNESIUM 2.1 mg/dl (1.8-2.4); PHOSPHORUS 4.1 mg/dl (2.5-4.9); POTASSIUM 4.4 mmol/L (3.5-5.1)
[2016-11-25] MEDS: IPRATROPIUM BROMIDE/ALBUTEROL respimat INH INH SCH ×4 (07:39→20:34)
[2016-11-25] MEDS: CHECK FENTANYL PATCH PLACEMENT SCH ×3 (07:39→23:56)
[2016-11-25 07:55] VITALS: BP 116/73; PULSE 101; TEMP 36.9; O2SAT 91
[2016-11-25] MEDS: OXYCODONE HCL IR 5 MG TAB (IMMEDIATE RELEASE) PO PRN ×2 (08:48→20:34)
[2016-11-25] MEDS: AMIODARONE 200 MG TAB PO SCH (08:49)
[2016-11-25] MEDS: CEROVITE ADV FORMULA TAB PO SCH ×2 (08:49→20:35)
[2016-11-25] MEDS: POLYETHYLENE (MIRALAX) 17 GM PACK PO SCH (08:49)
[2016-11-25] MEDS: PANTOprazole SOD 40 MG TAB PO SCH (08:50)
[2016-11-25] MEDS: ACETAMINOPHEN 325 MG TAB PO SCH ×3 (10:00→22:39)
[2016-11-25 10:28] VITALS: PULSE 108; O2SAT 88
--- NOTE | 2016-11-25 10:54 | Progress Note ---
Subjective Date of Service: Nov 25, 2016. Subjective Pt evaluation today including: conversation w/ patient, physical exam, chart review, lab review, review of studies, conversation w/ presales consultant, review of inpatient medication list Sitting up in chair, mild cough and difficult to cough up, continue incentive spirometry, still on [place] O2 5 L/m, report has some bowel movement but feel constipated, generally feeling much better Problem List Medical Problems: (1) Asthma, Unspecified Status: Chronic (2) Esophageal Reflux Status: Chronic (3) Hypertension Nos Status: Chronic (4) Lumb/Lumbosac Disc Degen Status: Chronic (5) Macular Degeneration Nos Status: Chronic (6) Osteoporosis Nos Status: Chronic (7) Syncope Status: Acute (8) Vertigo Status: Chronic Review of Systems Constitutional: + fatigue, No chills, No fever, No problem reported, No sweats , No weakness, No weight loss Eyes: No diplopia, No discharge, No eye pain, No redness, No worsening of vision ENT: No dental problems, No hearing loss, No nasal symptoms, No sore throat, No tinnitus, No trouble swallowing, No unusual epistaxis Respiratory: + cough, No dyspnea at rest, No dyspnea on exertion, No hemoptysis , No shortness of breath, No sputum, No wheezing Cardiac: No PND, No chest pain, No claudication, No edema, No orthopnea, No palpitations Abdomen: + constipation, No diarrhea, No nausea, No pain, No vomiting Musculoskeletal: No calf pain, No joint pain, No muscle pain, No swelling Female : No abnormal vaginal bleeding, No dysuria, No hematuria, No incontinence, No urinary frequency, No vaginal discharge Neurologic: No balance problems, No memory loss, No numbness/tingling, No paralysis, No vertigo, No weakness Psychiatric: No anhedonism, No anxiety, No depression symptoms, No insomnia, No substance abuse Heme: No abnormal bleeding/bruising, No clotting problems, No night sweats, No swollen lymph nodes Endo: No excessive thirst, No excessive urination, No fatigue Skin: No bleeding, No color change, No itch, No new/changing skin lesions, No rash Objective Vital Signs Date Time Temp Pulse Resp B/P Pulse Ox O2 Delivery O2 Flow Rate FiO2 11/25/16 07:55 36.9 101 18 116/73 91 11/25/16 00:09 37.0 106 20 132/77 92 Nasal Cannula 5.5 11/25/16 00:00 Nasal Cannula 6.0 11/24/16 20:00 Nasal Cannula 6.0 11/24/16 16:25 Nasal Cannula 6.0 11/24/16 15:51 36.4 91 20 97/67 94 Nasal Cannula 5.5 11/24/16 15:10 36.6 89 18 90/53 94 Nasal Cannula 5.0 11/24/16 14:26 36.8 100 20 97/63 95 Nasal Cannula 6.0 11/24/16 12:00 36.9 106 24 86/59 93 Nasal Cannula 6.0 100/63 11/24/16 12:00 Nasal Cannula 6.0 Physical Exam General Appearance: WD/WN, no apparent distress, + obese Eyes: normal inspection, PERRL, EOMI, sclerae normal, + pertinent finding (on oxygen) ENT: normal ENT inspection, hearing grossly normal, pharynx normal Neck: supple, no adenopathy, thyroid normal, no JVD, no carotid bruits, trachea midline Respiratory/Chest: chest non-tender, normal breath sounds, no respiratory distress, no accessory muscle use, + decreased breath sounds Cardiovascular: regular rate, rhythm, no edema, no gallop, no JVD, no murmur Abdomen: normal bowel sounds, non tender, soft, no organomegaly, no pulsatile mass Extremities: normal range of motion, non-tender, normal inspection, no pedal edema, no calf tenderness, normal capillary refill, pelvis stable Neurologic/Psychiatric: computational geneticist II-XII nml as tested, no motor/sensory deficits, alert, normal mood/affect, oriented x 3 Skin: normal color, warm/dry, no rash Lymphatic: no adenopathy Laboratory Results Last 24 Hours Test 11/24/16 16:42 11/24/16 20:09 11/25/16 05:09 11/25/16 07:50 Bedside Glucose 102 mg/dl 108 mg/dl 84 mg/dl Sodium Level 140 mmol/L Potassium Level 4.4 mmol/L Chloride Level 103 mmol/L Carbon Dioxide Level 32 mmol/L Anion Gap 5.0 mmol/L Blood Urea Nitrogen 9 mg/dl Creatinine 0.78 mg/dl Est Creatinine Clear Calc Drug Dose 67.6 ml/min Estimated GFR () 89.3 Estimated GFR (Non- 77.0 BUN/Creatinine Ratio 11.9 Random Glucose 85 mg/dl Calcium Level 7.8 mg/dl Phosphorus Level 4.1 mg/dl Magnesium Level 2.1 mg/dl Assessment and Plan 71 yo female with PMH of HTN, GERD and vertigo admitted on 11/12/2016 because of syncope (also happened about 2 years ago) 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 had a pacemaker on 11/14 but unfortunately there was a complication on 11/15 with the right ventricle wire going through the ventricle. she developed a pericardial tamponade and a drain was placed, then developed a left hemothorax and chest tube was placed subsequently developed an ileus requiring NGT decompression. NG tube, chest tube has been off. Continue improving and stable Hemopneumothorax, stable chest surgeon on the case Has been with chest tube, TPA treatment for chest tube clot 3 was have good drainage chest tube removed on 11/24/2016 Left lung sounds better Yesterday Acute blood loss anemia: Hb stable, did receive 4 units total Cardiac tamponade: resolved with drain, hemodynamically stable CHRISTIAN: resolved with fluids and BP support, Leukocytosis and fevers: no clear source of infection, on Vancomycin and Zosyn initially, stopped without clear source of infection No SB, but ileus and constipation: Improved after fleet enema, Continue bowel regimen Syncope: secondary to transient complete heart block, pacer on 11/14/2016, revision of leads on 11/16/2016, currently normal functioning dual-chamber permanent pacer, functioning appropriately; Cardiac tamponade secondary to RV perforation, this appears to have resolved. No evidence of effusion on recent CT scan. Atrial fibrillation. No additional events. Per ballast regulator operator , the patient has been switched to 200 mg daily of amiodarone which can be continued and change in the outpatient setting once discharged. plan: Continue MedSurg, PT OT, taper off oxygen, treat constipation Planning rehabilitation possible next Monday Continued [facility] stay due to: other Discharge planning: home
--- NOTE | 2016-11-25 11:12 | CARDIOLOGY PROGRESS NOTE ---
DATE: 11/25/2016 SUBJECTIVE: This morning, Mrs. Villegas claims to be feeling well. She ate breakfast and did not have any abdominal complaints. She still continues to have some chest pain now localized across both the right and left chest. There is a pleuritic component. Generally speaking, she feels better since of the chest tube was removed yesterday. She has been ambulatory in the room with her walker. When sitting up in a chair, she denies significant breathing difficulty and has been coughing up some phlegm. PHYSICAL EXAMINATION: GENERAL: She was alert and oriented. Mood and affect appear normal. CURRENT VITAL SIGNS: Include a blood pressure of 116/73 with a pulse of 101. LUNGS: Auscultation of her lung apices reveal them to be clear with some upper airway congestion and some mild crackles at the bases bilaterally. CARDIAC: Not revealing the presence of any cardiac rubs or murmur. She had a regular rhythm. ASSESSMENT AND PLAN: 1. Complete heart block status post implantation of dual chamber permanent pacemaker. No additional arrhythmias noted on telemetry. 2. Atrial fibrillation: This was very transient in nature, during her initial hospitalization. She has been maintained on low dose amiodarone which can be continued in the outpatient setting. No indications for anticoagulation. 3. Cardiac tamponade: Now resolved with removal of the drain. No evidence of pericardial effusion on a recent CT scan. 4. Hemothorax: Chest tube removed yesterday, the patient improving. 5. Atelectasis: The patient encouraged to use incentive spirometry and increase ambulation. Still very small oxygen requirement. 6. Ileus, this has resolved. I will be away from the hospital for the next 2 days. Should there be any concerns regarding the patient's cardiac condition or new cardiac concerns, please contact the [facility] ship's electronic warfare officer on-call, Dr. Jaramillo. HIRAM
[2016-11-25 16:19] VITALS: BP 128/80; PULSE 98; TEMP 36.9; O2SAT 92
--- NOTE | 2016-11-25 16:53 | SURGERY PROGRESS NOTE ---
DATE: 11/25/2016 Mrs. Villegas was seen today and she definitely looks better. She is walking better. Her saturations are improved and she is now down to 2 liters with good saturations. She sounds better on auscultation also. I have encouraged her to cough and walk and use her incentive spirometer. We still need to follow her up with serial x-rays to make sure she does not reaccumulate this fluid on the left.
[2016-11-25] MEDS: GUAIFENESIN 600 MG TABCR PO SCH (20:35)
[2016-11-25 23:41] VITALS: BP 145/77; PULSE 90; TEMP 36.8; O2SAT 92
[2016-11-26] MEDS: HEPARIN SOD 5000 UNIT/0.5 ML CARP SQ SCH ×3 (07:30→23:15)
[2016-11-26 07:54] VITALS: BP 115/73; PULSE 93; TEMP 36.8; O2SAT 96
[2016-11-26] MEDS: PANTOprazole SOD 40 MG TAB PO SCH (07:58)
[2016-11-26] MEDS: AMIODARONE 200 MG TAB PO SCH (07:58)
[2016-11-26] MEDS: CHECK FENTANYL PATCH PLACEMENT SCH ×3 (07:59→23:25)
[2016-11-26] MEDS: CEROVITE ADV FORMULA TAB PO SCH ×2 (07:59→20:37)
[2016-11-26] MEDS: IPRATROPIUM BROMIDE/ALBUTEROL respimat INH INH SCH ×4 (07:59→20:36)
[2016-11-26] MEDS: GUAIFENESIN 600 MG TABCR PO SCH ×2 (08:00→20:37)
[2016-11-26] MEDS: POLYETHYLENE (MIRALAX) 17 GM PACK PO SCH (08:00)
[2016-11-26] MEDS: ACETAMINOPHEN 325 MG TAB PO SCH ×3 (08:11→20:48)
--- NOTE | 2016-11-26 10:09 | SURGERY PROGRESS NOTE ---
DATE: 11/26/2016 Ms. Villegas is seen today. She is getting better and better. We removed her chest tube a few days ago and she has done quite well with that. I have explained to her how important it is for her to ambulate. Her aeration is much better. Her chest tube site is clean. I have asked her to push to ambulate. Her A-a gradient is a bit better with 96% saturation on 4 liters. I think she is getting close to going home. I did explain to the patient and her sister how important it is for her to ambulate.
--- NOTE | 2016-11-26 11:12 | Progress Note ---
Subjective Date of Service: Nov 26, 2016. Subjective Pt evaluation today including: conversation w/ patient, conversation w/ family , physical exam, chart review, lab review, review of studies, review of inpatient medication list Has been doing well up and walk with wheelchair on the hallway, mild difficulty breathing when walking, but generally feeling better, however reported lower extremity swelling is new and getting worse Problem List Medical Problems: (1) Asthma, Unspecified Status: Chronic (2) Esophageal Reflux Status: Chronic (3) Hypertension Nos Status: Chronic (4) Lumb/Lumbosac Disc Degen Status: Chronic (5) Macular Degeneration Nos Status: Chronic (6) Osteoporosis Nos Status: Chronic (7) Syncope Status: Acute (8) Vertigo Status: Chronic Review of Systems Constitutional: + fatigue, No chills, No fever, No problem reported, No sweats , No weakness, No weight loss Eyes: No diplopia, No discharge, No eye pain, No redness, No worsening of vision ENT: No dental problems, No hearing loss, No nasal symptoms, No sore throat, No tinnitus, No trouble swallowing, No unusual epistaxis Respiratory: + cough, + shortness of breath, No dyspnea at rest, No dyspnea on exertion, No hemoptysis, No sputum, No wheezing Cardiac: + edema, No PND, No chest pain, No claudication, No orthopnea, No palpitations Abdomen: No constipation, No diarrhea, No nausea, No pain, No vomiting Musculoskeletal: + swelling, No calf pain, No joint pain, No muscle pain Female : No abnormal vaginal bleeding, No dysuria, No hematuria, No incontinence, No urinary frequency, No vaginal discharge Neurologic: No balance problems, No memory loss, No numbness/tingling, No paralysis, No vertigo, No weakness Psychiatric: No anhedonism, No anxiety, No depression symptoms, No insomnia, No substance abuse Heme: No abnormal bleeding/bruising, No clotting problems, No night sweats, No swollen lymph nodes Endo: No excessive thirst, No excessive urination, No fatigue Skin: No bleeding, No color change, No itch, No new/changing skin lesions, No rash Objective Vital Signs Date Time Temp Pulse Resp B/P Pulse Ox O2 Delivery O2 Flow Rate FiO2 11/26/16 07:54 36.8 93 16 115/73 96 Nasal Cannula 4.0 11/26/16 00:00 Nasal Cannula 4.0 11/25/16 23:41 36.8 90 18 145/77 92 Nasal Cannula 4.0 11/25/16 20:00 Nasal Cannula 4.0 11/25/16 16:19 36.9 98 18 128/80 92 Nasal Cannula 4.0 11/25/16 16:00 Nasal Cannula 5.0 Physical Exam General Appearance: WD/WN, no apparent distress, + obese Eyes: normal inspection, PERRL, EOMI, sclerae normal ENT: normal ENT inspection, hearing grossly normal, pharynx normal Neck: supple, no adenopathy, thyroid normal, no JVD, no carotid bruits, trachea midline Respiratory/Chest: chest non-tender, normal breath sounds, no respiratory distress, no accessory muscle use, + decreased breath sounds Cardiovascular: regular rate, rhythm, no gallop, no JVD, no murmur, + pertinent finding (2+ edema in lower extremities ) Abdomen: normal bowel sounds, non tender, soft, no organomegaly, no pulsatile mass Extremities: normal range of motion, non-tender, normal inspection, no pedal edema, no calf tenderness, normal capillary refill, pelvis stable Neurologic/Psychiatric: news reel cameraman II-XII nml as tested, no motor/sensory deficits, alert, normal mood/affect, oriented x 3 Skin: normal color, warm/dry, no rash Lymphatic: no adenopathy Laboratory Results Last 24 Hours Test 11/25/16 12:06 11/25/16 16:48 11/25/16 20:25 11/26/16 07:45 Bedside Glucose 84 mg/dl 107 mg/dl 106 mg/dl 97 mg/dl Assessment and Plan 71 yo female with PMH of HTN, GERD and vertigo admitted on 11/12/2016 because of syncope (also happened about 2 years ago) 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 had a pacemaker on 11/14 but unfortunately there was a complication on 11/15 with the right ventricle wire going through the ventricle. she developed a pericardial tamponade and a drain was placed, then developed a left hemothorax and chest tube was placed subsequently developed an ileus requiring NGT decompression. NG tube, chest tube has been off. Continue improving and stable Bilateral lower extremity edema, recent on 11/15/2016 with the right ventricle wire going through the ventricle. she developed a pericardial tamponade , echo on 11/19/2016 was not remarkable Discussed with patient about raising bilateral lower extremity, possible need echocardiogram repeated, and also request cardiology to see, Will check BMP and chest x-ray as well, chest x-ray was ordered by chest surgeon for tomorrow morning Hemopneumothorax, stable/improving chest surgeon on the case Has been with chest tube, TPA treatment for chest tube clot 3 was had good drainage chest tube removed on 11/24/2016 Left lung sounds continue better Yesterday Chest surgeon has ordered a chest x-ray tomorrow Acute blood loss anemia: Hb stable, did receive 4 units total Cardiac tamponade: resolved with drain, hemodynamically stable CHRISTIAN: resolved with fluids and BP support, Leukocytosis and fevers: no clear source of infection, on Vancomycin and Zosyn initially, stopped without clear source of infection No SB, but ileus and constipation: Improved after fleet enema, Continue bowel regimen Syncope: secondary to transient complete heart block, pacer on 11/14/2016, revision of leads on 11/16/2016, currently normal functioning dual-chamber permanent pacer, functioning appropriately; Cardiac tamponade secondary to RV perforation, this appears to have resolved. No evidence of effusion on recent CT scan. Atrial fibrillation. No additional events. Per wildlife control agent , the patient has been switched to 200 mg daily of amiodarone which can be continued and change in the outpatient setting once discharged. plan: Continue MedSurg, PT OT, taper off oxygen, treat constipation, will check for lower extremity edema, may need a repeat echo, follow-up chest x-ray results in BMP diuretic as needed Planning rehabilitation possible next Monday Continued [facility] stay due to: other Discharge planning: home
--- NOTE | 2016-11-26 11:59 | Cardiology Follow-Up ---
Subjective Date of Service: Nov 26, 2016. Pt evaluation today including: conversation w/ patient, conversation w/ family , physical exam, lab review, review of studies, review of inpatient medication list History of Present Illness Asked to see patient for leg swelling. She reports her legs were swollen yesterday, better today after keeping them up. Minor chest aching, non-cardiac in nature. No SOB or lightheadedness. Social History Smoking Status: Former Smoker History of Alcohol Use: No Review of Systems Respiratory: + cough, + shortness of breath, No dyspnea at rest, No dyspnea on exertion, No hemoptysis, No sputum, No wheezing Cardiac: + edema, No PND, No chest pain, No claudication, No orthopnea, No palpitations Objective Vital Signs Past 12 Hours Date Time Temp Pulse Resp B/P Pulse Ox O2 Delivery O2 Flow Rate FiO2 11/26/16 07:54 36.8 93 16 115/73 96 Nasal Cannula 4.0 11/26/16 00:00 Nasal Cannula 4.0 Last Recorded Weight-Kilograms: 85.900 Intake & Output 8-Hour Column 11/25/16 11/26/16 11/26/16 16:00 00:00 08:00 Intake Total 875 ml 350 ml 150 ml Output Total 0 ml Balance 875 ml 350 ml 150 ml 24-Hour Column 11/26/16 08:00 Intake Total 1375 ml Output Total 0 ml Balance 1375 ml Physical Exam Constitutional: Level of Distress: NAD Lungs: Auscultation: breath sounds normal Cardiovascular: Heart Auscultation: RRR, no rubs Extremities: edema (+1 bilateral) Data Laboratory Results: Last 24 Hours Test 11/25/16 12:06 11/25/16 16:48 11/25/16 20:25 11/26/16 07:45 Bedside Glucose 84 mg/dl 107 mg/dl 106 mg/dl 97 mg/dl Test 11/26/16 11:04 11/26/16 11:36 Bedside Glucose 99 mg/dl Assessment and Plan 1. Edema: Probably dependent edema, her weight is up quite a bit from admission. Weight has bee dropping. Could be a sign of pericardial effusion but not likely. Will check echo however. 2. HR: Has been running around 100, now a little lower, not higher. Will check ECG. 3. Hemothorax: clinically better, lungs sound good. Will check CXR, last one was 2 days ago when chest tube removed. Thank You
--- NOTE | 2016-11-26 12:36 | DIAGNOSTIC IMAGING REPORT ---
CHEST 2 VIEWS ROUTINE HISTORY: Follow hemothorax COMPARISON: Chest 11/24/2016. FINDINGS: Small loculated left pneumothorax within the left major fissure remains unchanged. Small left pleural effusion has slightly improved. Mild diffuse interstitial thickening persists. The heart is normal in size. Left-sided dual-chamber pacemaker. Trace right pleural effusion is again noted. Nodular opacity left perihilar location. IMPRESSION: 1. Decrease in size in the bilateral pleural effusions. Small partially loculated pneumothorax within the left major fissure remains unchanged. 2. Nodular appearance to the left perihilar location is likely due to the pleural fluid. Recommend follow-up to complete resolution. Electronically signed by: Reece Alaniz M.D. 11/26/2016 12:34 PM Dictated Date/Time: 11/26/2016 12:31 PM
[2016-11-26 15:16] VITALS: BP 116/75; PULSE 87; TEMP 36.5; O2SAT 95
--- NOTE | 2016-11-26 16:41 | ECHOCARDIOGRAM REPORT ---
*NOTICE TO RECEIVING DEMOCRAT AGENCY This information is strictly Confidential and protected under [place] law. [place] law prohibits you from making any further disclosure of this information unless further disclosure is expressly permitted by the written consent of the person to whom it pertains or is authorized by law. A general authorization for the release of medical or other information is not sufficient for this purpose. Hospital accepts no responsibility if the information is made available to any other person, INCLUDING THE PATIENT. Interpretation Summary * Name: MOR BARRIGA Study Date: 11/26/2016 01:41 PM BP: 115/73 mmHg * Patient Location: [facility] HR: 93 * : 1945 (M/d/yyyy) Gender: Female Height: 61 in * Age: 71 yrs Ethnicity: [place] Weight: 189 lb * Ordering Physician: ANDREA JONES MD * Performed By: Janelle Davila RCS * * Reason For Study: F/U PERICARDIAL EFFUSION * BSA: 1.8 m2 * Possible very small and localized anterior pericardial effusion. * Normal biventricular systolic function. * Normal central venous pressure. * No 2D echo evidence of tamponade. * -- Conclusions -- * There is no diastolic compression of the right ventricle to suggest cardiac tamponade. Procedure Details * A complete two-dimensional transthoracic echocardiogram was performed (2D, M-mode, Doppler and color flow Doppler). Left Ventricle * The left ventricle is normal in size. * Left ventricular systolic function is normal. * Ejection Fraction = 60-65%. Right Ventricle * The right ventricle is normal in size and function. Atria * The left atrial size is normal. * Right atrial size is normal. Great Vessels * The aortic root is normal size. Pericardium/Pleural * Can't exclude very small and localized anterior pericardial effusion. * There is no diastolic compression of the right ventricle to suggest cardiac tamponade. Great Vessels * Normal inferior vena cava diameter and respiratory variation suggests normal central venous pressure.
[2016-11-26] MEDS: OXYCODONE HCL IR 5 MG TAB (IMMEDIATE RELEASE) PO PRN (22:20)
[2016-11-26 23:14] VITALS: BP 107/73; PULSE 93; TEMP 36.6; O2SAT 93
[2016-11-27] MEDS: HEPARIN SOD 5000 UNIT/0.5 ML CARP SQ SCH ×3 (06:07→21:53)
[2016-11-27] MEDS: ACETAMINOPHEN 325 MG TAB PO SCH ×3 (06:50→21:55)
[2016-11-27] MEDS: IPRATROPIUM BROMIDE/ALBUTEROL respimat INH INH SCH ×4 (07:29→20:02)
[2016-11-27 07:30] VITALS: BP 121/73; PULSE 84; TEMP 36.8; O2SAT 95
[2016-11-27] MEDS: AMIODARONE 200 MG TAB PO SCH (07:30)
[2016-11-27] MEDS: GUAIFENESIN 600 MG TABCR PO SCH ×2 (07:31→20:06)
[2016-11-27] MEDS: CEROVITE ADV FORMULA TAB PO SCH ×2 (07:31→20:04)
[2016-11-27] MEDS: PANTOprazole SOD 40 MG TAB PO SCH (07:31)
[2016-11-27] MEDS: POLYETHYLENE (MIRALAX) 17 GM PACK PO SCH (07:32)
[2016-11-27] MEDS: CHECK FENTANYL PATCH PLACEMENT SCH ×3 (07:37→23:55)
--- NOTE | 2016-11-27 09:07 | DIAGNOSTIC IMAGING REPORT ---
TWO VIEW CHEST CLINICAL HISTORY: Pleural effusion. FINDINGS: PA and lateral chest radiographs are compared to study dated 11/26/2016. The PA view is degraded by patient rotation. A 2-lead cardiac pacemaker is unchanged in position and partially obscures the left upper chest. The heart is enlarged and there is atherosclerotic calcification of the thoracic aorta. The pulmonary vasculature is noncongested. Chronic interstitial thickening is unchanged. There is a small volume of pleural fluid the left lung base with significant left basilar atelectasis. Left perihilar airspace opacities are unchanged and likely represents fluid within the major fissure. The right lung appears clear. A small loculated pneumothorax within left major fissure is unchanged. The skeletal structures are osteopenic. The bony thorax is grossly intact. Degenerative change is seen throughout the thoracic spine IMPRESSION: 1. There is a small left pleural effusion with significant left basilar atelectasis. 2. Pleural fluid and a small loculated pneumothorax is again noted in the left major fissure. 3. Cardiomegaly and cardiac pacemaker. There is no radiographic evidence of congestive failure. 4. The right lung appears clear. Electronically signed by: Patricio Arzate M.D. 11/27/2016 9:05 AM Dictated Date/Time: 11/27/2016 9:01 AM
--- NOTE | 2016-11-27 11:14 | Cardiology Follow-Up ---
Subjective Date of Service: Nov 27, 2016. Pt evaluation today including: lab review, review of studies, review of inpatient medication list History of Present Illness Asked to see patient for leg swelling yesterday. She reports her legs were swollen, better today after keeping them up. Minor chest aching, non-cardiac in nature. No SOB or lightheadedness. Social History Smoking Status: Former Smoker History of Alcohol Use: No Review of Systems Respiratory: + cough, + shortness of breath, No dyspnea at rest, No dyspnea on exertion, No hemoptysis, No sputum, No wheezing Cardiac: + edema, No PND, No chest pain, No claudication, No orthopnea, No palpitations Medications Cardiovascular: Item Value Date Time Amiodarone HCl 200 mg 11/23/16 0900 (Cordarone Tab) QAM/PO 11/27/16 0730 Heparin Sodium 5,000 unit 11/21/16 1400 (Porcine) Q8/SQ 11/27/16 0607 (Heparin Sq 5000 Unit/0.5ml) Objective Vital Signs Past 12 Hours Date Time Temp Pulse Resp B/P Pulse Ox O2 Delivery O2 Flow Rate FiO2 11/27/16 07:45 Nasal Cannula 4.0 11/27/16 07:30 36.8 84 18 121/73 95 Nasal Cannula 4.0 11/27/16 00:00 Nasal Cannula 4.0 11/26/16 23:14 36.6 93 18 107/73 93 4.0 Last Recorded Weight-Kilograms: 84.400 Intake & Output 8-Hour Column 11/26/16 11/27/16 11/27/16 16:00 00:00 08:00 Intake Total 870 ml 360 ml 250 ml Balance 870 ml 360 ml 250 ml 24-Hour Column 11/27/16 08:00 Intake Total 1480 ml Balance 1480 ml Physical Exam Constitutional: Level of Distress: NAD Lungs: Auscultation: breath sounds normal Cardiovascular: Heart Auscultation: RRR, no rubs Extremities: edema (+1 bilateral) Data Laboratory Results: Last 24 Hours Test 11/26/16 11:36 11/26/16 12:00 11/26/16 16:31 11/26/16 20:24 Bedside Glucose 99 mg/dl 109 mg/dl 118 mg/dl Pro-B-Type Natriuretic Peptide 2594 pg/ml Test 11/27/16 07:50 Bedside Glucose 104 mg/dl Imaging: Echocardiogram shows no significant pericardial effusion, biventricular function Electrocardiogram: Sinus rhythm, right bundle branch block. Chest x-ray: Slight left pleural effusion, nothing significant Assessment and Plan 1. Edema: Appears to be dependent edema associated with fluid retention, her weight is up quite a bit from admission. Weight has been dropping now for several days and I suspect her edema will resolve. No evidence of pericardial effusion to explain it. 2. HR: Has been running around 100, appears to be sinus rhythm on electrocardiography. 3. Hemothorax: clinically better, lungs sound good. No significant effusion on chest x-ray. Thank You
--- NOTE | 2016-11-27 13:34 | SURGERY PROGRESS NOTE ---
DATE: 11/27/2016 Ms. Villegas was seen today on 11/27/2016 and I must say I am a bit concerned about her. She is still on 4 liters with sats in the low 90s. By looking at her x-ray from a pleural fluid standpoint, does not really look like she should be hypoxic. I discussed this case with Dr. Eric Jaramillo and he is concerned that she may be fluid overloaded. She does have edema of her lower extremities and her weight is up considerably. He is going to diurese her and we will see how she does. At this point, I would not intervene in her chest.
--- NOTE | 2016-11-27 13:44 | Progress Note ---
Subjective Date of Service: Nov 27, 2016. Subjective Pt evaluation today including: conversation w/ patient, conversation w/ family , physical exam, chart review, lab review, review of studies, conversation w/ hr consultant, review of inpatient medication list Generally doing okay sitting up to chair, but still complaining about lower extremity swelling, still on 4 L oxygen nasal cannula, she is does not need oxygen at home by her to this admission Problem List Medical Problems: (1) Asthma, Unspecified Status: Chronic (2) Esophageal Reflux Status: Chronic (3) Hypertension Nos Status: Chronic (4) Lumb/Lumbosac Disc Degen Status: Chronic (5) Macular Degeneration Nos Status: Chronic (6) Osteoporosis Nos Status: Chronic (7) Syncope Status: Acute (8) Vertigo Status: Chronic Review of Systems Constitutional: + fatigue, + weakness, No chills, No fever, No problem reported , No sweats, No weight loss Eyes: No diplopia, No discharge, No eye pain, No redness, No worsening of vision ENT: No dental problems, No hearing loss, No nasal symptoms, No sore throat, No tinnitus, No trouble swallowing, No unusual epistaxis Respiratory: No cough, No dyspnea at rest, No dyspnea on exertion, No hemoptysis, No shortness of breath, No sputum, No wheezing Cardiac: No PND, No chest pain, No claudication, No edema, No orthopnea, No palpitations Abdomen: No constipation, No diarrhea, No nausea, No pain, No vomiting Musculoskeletal: No calf pain, No joint pain, No muscle pain, No swelling Female : No abnormal vaginal bleeding, No dysuria, No hematuria, No incontinence, No urinary frequency, No vaginal discharge Neurologic: No balance problems, No memory loss, No numbness/tingling, No paralysis, No vertigo, No weakness Psychiatric: No anhedonism, No anxiety, No depression symptoms, No insomnia, No substance abuse Heme: No abnormal bleeding/bruising, No clotting problems, No night sweats, No swollen lymph nodes Endo: No excessive thirst, No excessive urination, No fatigue Skin: No bleeding, No color change, No itch, No new/changing skin lesions, No rash Objective Vital Signs Date Time Temp Pulse Resp B/P Pulse Ox O2 Delivery O2 Flow Rate FiO2 11/27/16 07:45 Nasal Cannula 4.0 4/16/17 07:30 36.8 84 18 121/73 95 Nasal Cannula 4.0 11/27/16 00:00 Nasal Cannula 4.0 11/26/16 23:14 36.6 93 18 107/73 93 4.0 11/26/16 20:00 Nasal Cannula 4.0 11/26/16 15:42 Nasal Cannula 4.0 11/26/16 15:16 36.5 87 18 116/75 95 4.0 Physical Exam General Appearance: WD/WN, no apparent distress, + obese Eyes: normal inspection, PERRL, EOMI, sclerae normal ENT: normal ENT inspection, hearing grossly normal, pharynx normal Neck: supple, no adenopathy, thyroid normal, no JVD, no carotid bruits, trachea midline Respiratory/Chest: chest non-tender, no respiratory distress, no accessory muscle use, + decreased breath sounds, + pertinent finding (left side has decreased breathing sound, occasional wheezing,) Cardiovascular: regular rate, rhythm, no edema, no gallop, no JVD, no murmur Abdomen: normal bowel sounds, non tender, soft, no organomegaly, no pulsatile mass Extremities: normal range of motion, non-tender, normal inspection, no pedal edema, no calf tenderness, normal capillary refill, pelvis stable, + swelling (1 + edema as yesterday) Neurologic/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 had a pacemaker on 11/14 but unfortunately there was a complication on 11/15 with the right ventricle wire going through the ventricle. she developed a pericardial tamponade and a drain was placed, then developed a left hemothorax and chest tube was placed subsequently developed an ileus requiring NGT decompression. NG tube, chest tube has been off. Continue improving and stable Bilateral lower extremity edema likely dependent edema associated with fluid retention, echo on 11/19/2016 was not remarkable Repeated yesterday on 11/26/2016 was not remarkable, Discussed with resource technician her weight is up quite a bit from admission. Weight has been dropping now for several days and I suspect her edema will resolve. No evidence of pericardial effusion to explain it, Patient has increased BNP Discussed with patient about a care plan, education above limit fluid intake to 6 to 8 cups a day, low sodium diet, compression stocking, elevation of lower extremities whenever in sitting or in bed, will not give any diuretics for now, encourage her to follow-up with PCP all resource technician Hemopneumothorax, stable/improving chest surgeon on the case Has been with chest tube, TPA treatment for chest tube clot 3 was had good drainage chest tube removed on 11/24/2016 Left lung sounds continue better Yesterday Repeat chest x-ray yesterday, which shows related to stable, Report and chest x-ray on 11/26/2016 1. There is a small left pleural effusion with significant left basilar atelectasis. 2. Pleural fluid and a small loculated pneumothorax is again noted in the left major fissure. Acute blood loss anemia: Hb stable, did receive 4 units total Cardiac tamponade: resolved with drain, hemodynamically stable CHRISTIAN: resolved with fluids and BP support, Leukocytosis and fevers: no clear source of infection, on Vancomycin and Zosyn initially, stopped without clear source of infection No SB, but ileus and constipation: Improved after fleet enema, Continue bowel regimen Syncope: secondary to transient complete heart block, pacer on 11/14/2016, revision of leads on 11/16/2016, currently normal functioning dual-chamber permanent pacer, functioning appropriately; Cardiac tamponade secondary to RV perforation, this appears to have resolved. No evidence of effusion on recent CT scan. Atrial fibrillation. No additional events. Per resource technician , the patient has been switched to 200 mg daily of amiodarone which can be continued and change in the outpatient setting once discharged. plan: taper off oxygen if possible, follow-up lower extremity edema, Was initially Planning rehabilitation, however patient's condition significantly improved with the activity in recen t2 -3 days, the discharge plan will be dependent on the reevaluation of PTOT on Monday and then per their recommendations to rehabilitation or going home with home healthcare Continued [facility] stay due to: other Discharge planning: home
[2016-11-27] MEDS ORDERED: FENTANYL PATCH REMOVE & WASTE SCH (14:00)
[2016-11-27 14:34] VITALS: BP 104/61; PULSE 88; TEMP 36.7; O2SAT 94
[2016-11-27] MEDS: FENTANYL 12 MCG/HR TDSY TD SCH (15:53)
[2016-11-27] MEDS: OXYCODONE HCL IR 5 MG TAB (IMMEDIATE RELEASE) PO PRN (20:43)
[2016-11-28 00:37] VITALS: BP 91/55; PULSE 90; TEMP 37; O2SAT 91
[2016-11-28] MEDS: OXYCODONE HCL IR 5 MG TAB (IMMEDIATE RELEASE) PO PRN (06:00)
[2016-11-28] MEDS: ACETAMINOPHEN 325 MG TAB PO SCH ×2 (06:02→13:41)
[2016-11-28] MEDS: HEPARIN SOD 5000 UNIT/0.5 ML CARP SQ SCH ×2 (06:05→13:41)
[2016-11-28 06:35] LABS: BASO % 0.4 %; BASO ABS # 0.03 K/uL (0-0.2); COMPLETE YES; EOS % 3.3 %; HEMATOCRIT 34.7 % (37-47); IG% 0.8 %; LYMPH % 15.1 %; LYMPH ABS # 1.16 K/uL (1.2-3.4); MEAN CELL VOLUME 89.2 fL (80-100); MEAN CORPUSCULAR HEMOGLOBIN 28.3 pg (25-34); MEAN CORPUSCULAR HGB CONC 31.7 g/dl (32-36); MEAN PLATELET VOLUME 9.3 fL (7.4-10.4); MONO % 8.6 %; NEUT % 71.8 %; PLATELET COUNT 337 K/uL (130-400); RED BLOOD COUNT 3.89 M/uL (4.2-5.4); WHITE BLOOD COUNT 7.68 K/uL (4.8-10.8)
[2016-11-28 07:05] LABS: BUN/CREATININE RATIO 11.8 (10-20); CALCIUM 8.4 mg/dl (8.5-10.1); CREATININE 0.82 mg/dl (0.60-1.20); MAGNESIUM 2.4 mg/dl (1.8-2.4)
[2016-11-28 07:27] VITALS: BP 121/75; PULSE 92; TEMP 36.7; O2SAT 93
[2016-11-28] MEDS: IPRATROPIUM BROMIDE/ALBUTEROL respimat INH INH SCH ×2 (09:14→12:41)
[2016-11-28] MEDS: PANTOprazole SOD 40 MG TAB PO SCH (09:15)
[2016-11-28] MEDS: AMIODARONE 200 MG TAB PO SCH (09:15)
[2016-11-28] MEDS: GUAIFENESIN 600 MG TABCR PO SCH (09:15)
[2016-11-28] MEDS: CEROVITE ADV FORMULA TAB PO SCH (09:15)
[2016-11-28] MEDS: POLYETHYLENE (MIRALAX) 17 GM PACK PO SCH (09:16)
[2016-11-28] MEDS: TRAMADOL HCL 50 MG TAB PO PRN (09:16)
[2016-11-28] MEDS: CHECK FENTANYL PATCH PLACEMENT SCH (09:17)
--- NOTE | 2016-11-28 10:15 | CARDIOLOGY PROGRESS NOTE ---
DATE: 11/28/2016 SUBJECTIVE: Mrs. Villegas claims to be feeling well this morning. She states that her chest pain is improving. She was able to lie on her left side briefly and over the course of the evening. She has been ambulatory in the halls already this morning and did report extensive ambulation over the course of the weekend. With regard to her lower extremity, she did notice some mild swelling on Monday evening or Monday morning which has improved, still very small amount of edema of the feet in particular. She has been tolerating a general diet. She denies dizziness or lightheadedness. PHYSICAL EXAMINATION: GENERAL: She was alert and oriented, mood and affect appeared normal. She answered all questions appropriately. VITAL SIGNS: Include blood pressure 121/75 with a pulse of 92. LUNGS: Auscultation of lungs revealed good breath sounds, slightly decreased on the left versus the right but no crackles, no expiratory wheezing. CARDIAC EXAMINATION: Revealed her to be in a regular rhythm without rubs or murmurs. EXTREMITIES: Evaluation of lower extremities revealed some mild peripheral edema primarily involving the feet. LABORATORY STUDIES: Today include a white cell count of 7.6, hemoglobin of 11 and platelet count of 337. Sodium was 141, potassium is 4.0, BUN was 10, creatinine was 0.82. ASSESSMENT AND PLAN: 1. Complete heart block. The patient with normally functioning dual-chamber pacemaker. No evidence of heart block on prior telemetry monitoring, no symptoms of recurrent syncope. 2. Cardiac tamponade, currently resolved. No evidence of effusion on echocardiogram performed over the weekend. 3. Hemothorax. This also appears to be resolved with good aeration. Her oxygenation is improving. At the time of the interview, she was not wearing oxygen, apparently she had good saturation with ambulation as well today. 4. Atrial fibrillation, very brief episode during this hospitalization, she can be maintained on amiodarone and we will follow up as an outpatient, likely discontinuing this within a couple of weeks. So I do not believe there is an indication at this time given the short duration of her atrial fibrillation and its presence in the setting of critical illness for anticoagulation. 5. Ileus, this appears to be resolved. 6. Hypoxia also improving, not on oxygen currently. 7. Mobility, appears to be ambulating quite well and plans are being made for possible discharge to home and set up rehab. 8. Edema, fairly mild. She continues to lose weight. I think she is simply mobilizing fluids and does not require overt diuresis at this point.
--- NOTE | 2016-11-28 10:43 | SURGERY PROGRESS NOTE ---
DATE: 11/28/2016 Ms. Villegas looks much better today. She responded to the diuresis I believe. At rest her pulse oximetry was 92%. Her lungs sound good. I was happy with her x-ray yesterday. At this point, from a chest surgery standpoint certainly she can be discharged. I will see her in the office in a week or so.
[2016-11-28] MEDS ORDERED: CRD200 PO (11:59)
--- NOTE | 2016-11-28 12:08 | Discharge Instructions ---
Discharge Instructions Date of Service Nov 28, 2016. Admission Reason for Admission: Complete Heart Block Discharge Discharge Diagnosis / Problem: syncope, complete heart block Discharge Goals Goal(s): Improve function, Diagnostic testing, Therapeutic intervention Activity Recommendations Activity Limitations: as noted below . Instructions / Follow-Up Instructions / Follow-Up You have been treated in the hospital for a heart arrhythmia, complete heart block. You underwent a pacemaker placement on 11/15/16. This had complications including a pericardial effusion and hemothorax (collapsed lung). All of these have now stabilized It is very important for you to follow up with her primary care physician within one week Please also follow up with cardiology within 1 week as scheduled The following changes/additions have been made to your medication list: -Amiodarone 200 mg 1 tab daily ACTIVITY RECOMMENDATIONS: * Do not raise affected arm over head for 2 weeks from the day of the procedure (11/15/16) SPECIAL CARE INSTRUCTIONS: * If bleeding occurs, apply direct pressure to area for 5 minutes. * Call your doctor if you have severe pain, fever, drainage or bleeding at site. * Keep dressing on and dry for 48 hours then remove. * Keep any scheduled doctor's appointment. * Implant Card - hand held device with website information given. SKIN IRRITATION: * You may experience some redness and/or swelling in the area where radiation was administered. If any skin irritation occurs, please contact your family physician. FOLLOW UP VISIT: Keep any scheduled doctor appointments. Current Hospital Diet Patient's current hospital diet: Regular Diet Discharge Diet Recommended Diet: AHA Diet (Heart Healthy), Low Sodium Diet (2gm Na) Fluid Restriction: 1800 ml (7 cups) Procedures Procedures Performed: ICD placement 11/15 Pending Studies Studies pending at discharge: no Laboratory Results 11/28/16 06:15 Red Blood Count 3.89, Mean Corpuscular Volume 89.2, Mean Corpuscular Hemoglobin 28.3, Mean Corpuscular Hemoglobin Concent 31.7, Mean Platelet Volume 9.3, Neutrophils (%) (Auto) 71.8, Lymphocytes (%) (Auto) 15.1, Monocytes (%) (Auto) 8.6, Eosinophils (%) (Auto) 3.3, Basophils (%) (Auto) 0.4, Neutrophils # (Auto) 5.52, Lymphocytes # (Auto) 1.16, Monocytes # (Auto) 0.66, Eosinophils # (Auto) 0.25, Basophils # (Auto) 0.03 11/28/16 06:15 Test 11/28/16 06:15 11/28/16 11:25 White Blood Count 7.68 K/uL (4.8-10.8) Red Blood Count 3.89 M/uL (4.2-5.4) Hemoglobin 11.0 g/dL (12.0-16.0) Hematocrit 34.7 % (37-47) Mean Corpuscular Volume 89.2 fL (80-100) Mean Corpuscular Hemoglobin 28.3 pg (25-34) Mean Corpuscular Hemoglobin Concent 31.7 g/dl (32-36) Platelet Count 337 K/uL (130-400) Mean Platelet Volume 9.3 fL (7.4-10.4) Neutrophils (%) (Auto) 71.8 % Lymphocytes (%) (Auto) 15.1 % Monocytes (%) (Auto) 8.6 % Eosinophils (%) (Auto) 3.3 % Basophils (%) (Auto) 0.4 % Neutrophils # (Auto) 5.52 K/uL (1.4-6.5) Lymphocytes # (Auto) 1.16 K/uL (1.2-3.4) Monocytes # (Auto) 0.66 K/uL (0.11-0.59) Eosinophils # (Auto) 0.25 K/uL (0-0.5) Basophils # (Auto) 0.03 K/uL (0-0.2) RDW Standard Deviation 52.1 fL (36.4-46.3) RDW Coefficient of Variation 15.9 % (11.5-14.5) Immature Granulocyte % (Auto) 0.8 % Immature Granulocyte # (Auto) 0.06 K/uL (0.00-0.02) Anion Gap 7.0 mmol/L (3-11) Est Creatinine Clear Calc Drug Dose 62.3 ml/min Estimated GFR () 84.0 Estimated GFR (Non- 72.5 BUN/Creatinine Ratio 11.8 (10-20) Calcium Level 8.4 mg/dl (8.5-10.1) Magnesium Level 2.4 mg/dl (1.8-2.4) Bedside Glucose 89 mg/dl (70-90) Hemoglobin A1c Test 11/13/16 06:05 Range/Units Estimated Average Glucose 117 mg/dl Hemoglobin A1c 5.7 H 4.5-5.6 % Lipid Panel Test 11/12/16 09:40 Range/Units Triglycerides Level 221 H 0-150 mg/dl Cholesterol Level 198 0-200 mg/dl HDL Cholesterol 52 mg/dl Cholesterol/HDL Ratio 3.8 LDL Cholesterol, Calculated 102 mg/dl Medical Emergencies . Who to Call and When: Medical Emergencies: If at any time you feel your situation is an emergency, please call 911 immediately. . Non-Emergent Contact Non-Emergency issues call your: Primary Care Provider, Telephoto Engineer . . "Provider Documentation" section prepared by [employer]. VTE Core Measure Inpt VTE Proph given/why not?: Unfractionated heparin TANI, T.E.Briseida. Declanings, SCD 's
--- NOTE | 2016-11-28 12:34 | Discharge Summary ---
Discharge Summary Date of Service Nov 28, 2016. (Honey Roque PA-C) Discharge Summary Admission Date: Nov 12, 2016 at 12:21 Discharge Date: Nov 28, 2016 Discharge Disposition: Home Principal Diagnosis: complete heart block, syncope Problems/Secondary Diagnoses: Pericardial effusion Cardiac tamponade Left hemothorax (1) Asthma, Unspecified Status: Chronic (2) Esophageal Reflux Status: Chronic (3) Hypertension Nos Status: Chronic (4) Lumb/Lumbosac Disc Degen Status: Chronic (5) Macular Degeneration Nos Status: Chronic (6) Osteoporosis Nos Status: Chronic (7) Vertigo Status: Chronic Immunizations: Have You Had Influenza Vaccine: Yes Influenza Vaccine Date: Jun 23, 2008 History of Tetanus Vaccine?: Yes History of Pneumococcal: Yes History of Hepatitis B Vaccine: No Procedures: Pacemaker placement on 11/15 complicated by perforation of the right ventricle, cardiac tamponade and Left Hemothorax status post chest tube placement on 11/15 Consultations: Cardiology Thoracic surgery (Honey Roque PA-C) Medication Reconciliation New Medications: Amiodarone HCl (Amiodarone HCl) 200 Mg Tab 200 MG PO QAM for 30 Days, #30 TAB Continued Medications: Calcium/Vitamin D (Os-Lito 500 Plus D) Tab 1 TAB PO BID, TAB Cholecalciferol (Vitamin D3) 2,000 Unit Tab 1 TAB PO DAILY Ipratropium-Albuterol (Combivent Respimat) 1 Aer Aer 1 PUFFS INH QID, INH Meclizine Hcl (Meclizine Hcl) 25 Mg Tab 25 MG PO TID PRN for DIZZY Nitroglycerin (Nitrostat) 0.4 Mg Sub 0.4 MG UT PRN PRN for Heartburn, BTL Ocuvite Preservision (Ocuvite Preservision) 1 Tab Tab 1 TAB PO BID, 0 Refills Pantoprazole (Protonix) 40 Mg Tab 40 MG PO DAILY, #30 TAB Ranitidine (Zantac) 150 Mg Tab 150 MG PO BID, TAB Sennosides-Docusate Sodium (Stool Softener) 1 Tab Tab 3 TAB PO DAILY 1QAM 2HS Tramadol (Ultram) 50 Mg Tab 1 TAB PO BID PRN for Pain for 30 Days, #60 TAB Referrals At Discharge Follow up Referrals: [facility] Referral - Within 1 Week with Eric Jaramillo M.D. Physician Referral - Within 1 Week with Hannah Marshall C.R.N.P Surgery Referral - Within 1-2 Weeks with Yariel Arceo MD Discharge Exam Patient feeling well today. Denies any shortness of breath. Denies any pain. Was up ambulating in the hallway without difficulty. Denies dizziness. Ate a good breakfast Review of Systems: Constitutional: No fever Respiratory: No shortness of breath Cardiovascular: No chest pain Abdomen: No nausea Genitourinary - Male: No dysuria Neurologic: No weakness Physical Exam: General Appearance: no apparent distress Eyes: EOMI ENT: + pertinent finding (oral mucosa fairly moist) Neck: no JVD Respiratory/Chest: + pertinent finding (very faint crackles noted at the left base) Cardiovascular: regular rate, rhythm Abdomen / GI: normal bowel sounds, non tender, soft Extremities: + pertinent finding (trace pitting edema in the lower extremities without any erythema, tenderness or warmth bilaterally) Neurologic/Psychiatric: no motor/sensory deficits, oriented x 3 Skin: warm/dry (Honey Roque PA-C) Hospital Course 71 yo female with PMH of HTN, GERD and vertigo admitted on 11/12/2016 because of syncope (also happened about 2 years ago) 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 had a pacemaker on 11/14 but unfortunately there was a complication on 11/15 with the right ventricle wire going through the ventricle. she developed a pericardial tamponade and a drain was placed, then developed a left hemothorax and chest tube was placed subsequently developed an ileus requiring NGT decompression. NG tube, chest tube has been off. Improving well Bilateral lower extremity edema resolving echo on 11/19/2016 was not remarkable Repeated on 11/26/2016 was not remarkable, Low salt diet fluid restrict to 7 cups per day Hemopneumothorax, stable chest tube inserted 11/15--> out on 11/26 Report and chest x-ray on 11/26/2016 1. There is a small left pleural effusion with significant left basilar atelectasis. 2. Pleural fluid and a small loculated pneumothorax is again noted in the left major fissure. Acute blood loss anemia: Hb stable, did receive 4 units total Cardiac tamponade: resolved with drain, hemodynamically stable CHRISTIAN: resolved with fluids and BP support, Ileus treated with NG-->tolerating diet. Having BMs DISPO initially was recommending rehab-->now stable for d/c home with home health CODE STATUS -LEVEL I FULL CODE Total Time Spent: Greater than 30 minutes This includes examination of the patient, discharge planning, medication reconciliation, and communication with other providers. (Honey Roque PA-C) Discharge Instructions Please refer to the electronic Patient Visit Report (Discharge Instructions) for additional information. (Honey Roque PA-C) Follow-Up PCP in [address] Bullock in [address] Arceo 1 week (Honey Rouqe PA-C) Additional Copies To Hannah Marshall C.R.N.P; Eric Jaramillo M.D.; Yariel Arceo MD Reviewed: Pt Seen/Exam by Me (Vonnie Diaz, ) History Pt is feeling ready for d/c. Still with slight SOB with ambulation, but much improved. No chest pain. Tolerating PO without issue "too good, to be honest" . Pt denies fever, abd pain, n/v/c/d, LE swelling. Mild LE edema that improves with elevation of LE. ROS as noted above, otherwise neg. (Vonnie Diaz, ) General Appearance: WD/WN, no apparent distress Respiratory: lungs clear, normal breath sounds, no respiratory distress Cardiovascular: regular rate, rhythm, no edema Gastrointestinal: non tender, soft Extremities: non-tender, pedal edema (trace) Neurologic/Psychiatric: alert, normal mood/affect Skin Characteristics: normal color, warm/dry (Vonnie Diaz, DO) Assessment/Plan Agree with plan as outlined above Pt s/p tamponade with pericardial effusion s/p wire perf from pacer placement. Developed pneumothorax as well, doing well with chest tube d/c several days ago Repeat ECHO is improved (Vonnie Diaz, DO)
[2016-11-28 13:13] VITALS: O2SAT 83
[2016-11-28 13:41] VITALS: BP 121/75; PULSE 92; TEMP 36.7; O2SAT 93
[2016-11-28 13:58] VITALS: O2SAT 90
[2016-12-12] MEDS ORDERED: BCTO EXT (12:20)
[2016-12-12] MEDS ORDERED: AMOX1TAB43 PO (12:20)
[2016-12-12] MEDS ORDERED: DABI150C PO (14:14)
[2016-12-13] MEDS ORDERED: TRAM-10 PO (10:09)
[2017-01-02] MEDS ORDERED: VLTG EXT (11:33)
== END 2016-11-28 16:10 | disposition home health service (06) | DRG 243 ==
LOC: ENRESERVDT → ENRESERVTM → C.EDB 09:24 → C.MSICU 12:21 → EDBEDREQ 11-24 10:24 → C.4E 11-24 14:11
PROVIDERS: ADMIT Internal Medicine; ATTEND Family Medicine
PROC: 02HL3JZ Insertion of Pacemaker Lead into Left Ventricle, Percutaneous Approach (ICD-10-PCS; principal; 2016-11-14 12:17)
PROC: 02H63JZ Insertion of Pacemaker Lead into Right Atrium, Percutaneous Approach (ICD-10-PCS; principal; 2016-11-14 12:17)
PROC: 0JH606Z Insertion of Pacemaker, Dual Chamber into Chest Subcutaneous Tissue and Fascia, Open Approach (ICD-10-PCS; principal; 2016-11-14 12:17)
PROC: 0W9D30Z Drainage of Pericardial Cavity with Drainage Device, Percutaneous Approach (ICD-10-PCS; 2016-11-15)
PROC: 04HK3DZ Insertion of Intraluminal Device into Right Femoral Artery, Percutaneous Approach (ICD-10-PCS; 2016-11-15)
PROC: 4A023N6 Measurement of Cardiac Sampling and Pressure, Right Heart, Percutaneous Approach (ICD-10-PCS; 2016-11-15)
PROC: 06HM33Z Insertion of Infusion Device into Right Femoral Vein, Percutaneous Approach (ICD-10-PCS; 2016-11-15)
PROC: 02WA3MZ Revision of Cardiac Lead in Heart, Percutaneous Approach (ICD-10-PCS; 2016-11-16)
PROC: 05HM33Z Insertion of Infusion Device into Right Internal Jugular Vein, Percutaneous Approach (ICD-10-PCS; 2016-11-17)
PROC: 3E0L3TZ Introduction of Destructive Agent into Pleural Cavity, Percutaneous Approach (ICD-10-PCS; 2016-11-21)
PROC: 3E0L3TZ Introduction of Destructive Agent into Pleural Cavity, Percutaneous Approach (ICD-10-PCS; 2016-11-22)
PROC: 0WHB3YZ Insertion of Other Device into Left Pleural Cavity, Percutaneous Approach (ICD-10-PCS; 2016-11-22)
DX: I44.2 Atrioventricular block, complete (principal); J94.2 Hemothorax; I31.3 Pericardial effusion (noninflammatory); I31.4 Cardiac tamponade; I97.89 Other postprocedural complications and disorders of the circulatory system, not elsewhere classified; N17.9 Acute kidney failure, unspecified; J95.89 Other postprocedural complications and disorders of respiratory system, not elsewhere classified; K21.9 Gastro-esophageal reflux disease without esophagitis; I10 Essential (primary) hypertension; J44.9 Chronic obstructive pulmonary disease, unspecified; M81.0 Age-related osteoporosis without current pathological fracture; H35.30 Unspecified macular degeneration; Z87.891 Personal history of nicotine dependence; I48.0 Paroxysmal atrial fibrillation; K40.90 Unilateral inguinal hernia, without obstruction or gangrene, not specified as recurrent; K57.90 Diverticulosis of intestine, part unspecified, without perforation or abscess without bleeding; I45.10 Unspecified right bundle-branch block; Z95.0 Presence of cardiac pacemaker; E66.9 Obesity, unspecified; Y83.8 Other surgical procedures as the cause of abnormal reaction of the patient, or of later complication, without mention of misadventure at the time of the procedure

== ENCOUNTER 2016-12-09 19:31 | Inpatient (IN) | payer OTHER ==
[~2016-12-09] VITALS: Ht 157.5 cm; Wt 79.8 kg
[~2016-12-09 19:31] MED LIST changes: -AMIO200T4 PO; -AMOX1TAB43 PO; -BCTO EXT; -DABI150C PO; -HYDR-5688 PO; -VLTG EXT
[2016-12-09] MEDS ORDERED: SODIUM CHLORIDE 0.9% 1000ML 1,000 ML IV STA (21:28)
[2016-12-09] MEDS ORDERED: SODIUM CHLORIDE 0.9% 1000ML 250 ML IV STA (21:28)
--- NOTE | 2016-12-09 21:41 | EMERGENCY ROOM VISIT NOTE ---
History Report prepared by Chely: Gunnar Mao Under the Supervision of: Dr. Patricio Min M.D. First contact with patient: 21:22 Chief Complaint: REFERRED BY DOCTOR Stated Complaint: BLOOD CLOT L LUNG REFERRED BY MD TO [facility] History of Present Illness The patient is a 71 year old female who presents to the Emergency Room after being referred by her primary care physician, after a positive D-dimer results at an appointment today. The patient's PCP performed the blood work due to her extensive medical history over the past month. The patient was seen in the Emergency Department on the first november, 27 days ago and was sent to the ICU before eventually having a pacemaker placed. After this surgery one of the wires of the pacemaker came loose and punctured the patient's heart and lung. She then had several drains placed to drain the blood and fluid from her heart and lungs. One of the drains on the left side of her chest does not seem to be healing very well. The patient was released from the hospital on the , and has been home for approximately 1.5 weeks. The patient is currently complaining of worsening shortness of breath and notes that she experiences pain across her whole chest with deep inspiration. She rates this pain at a 6/10 in severity. She denies any history of heart failure. Source of History: patient Onset: Today Position: chest Symptom Intensity: 6/10 in severity Quality: other (Chest pain, positive D-dimer) Associated Symptoms: + SOB Review of Systems See HPI for pertinent positives & negatives. A total of 10 systems reviewed and were otherwise negative. Past Medical & Surgical Medical Problems: (1) Asthma, Unspecified (2) Complete heart block (3) Dehydration (4) Esophageal Reflux (5) Hypertension Nos (6) Loss of consciousness (7) Loss of consciousness (8) Lumb/Lumbosac Disc Degen (9) Macular Degeneration Nos (10) Nasal bone fracture (11) Nasal bone fracture (12) Nausea (13) Osteoporosis Nos (14) Pulmonary emboli (15) Vertigo (16) Vertigo (17) Vertigo (18) Vertigo Surgical Problems: (1) Knee joint replacement status Social History Problems: (1) Osteoporosis Nos Family History Diabetes mellitus Hypertension Social History Smoking Status: Never Smoker Alcohol Use: none Drug Use: none Marital Status: Housing Status: lives alone Occupation Status: retired Current/Historical Medications Scheduled Amiodarone HCl (Amiodarone HCl), 200 MG PO QAM Calcium/Vitamin D (Os-Lito 500 Plus D), 1 TAB PO BID Cholecalciferol (Vitamin D3), 1 TAB PO DAILY Ipratropium-Albuterol (Combivent Respimat), 1 PUFFS INH QID Ocuvite Preservision (Ocuvite Preservision), 1 TAB PO BID Pantoprazole (Protonix), 40 MG PO DAILY Ranitidine (Zantac), 150 MG PO BID Sennosides-Docusate Sodium (Stool Softener), 3 TAB PO DAILY Scheduled PRN Meclizine Hcl (Meclizine Hcl), 25 MG PO TID PRN for DIZZY Nitroglycerin (Nitrostat), 0.4 MG UT PRN PRN for Heartburn Tramadol (Ultram), 1 TAB PO BID PRN for Pain Allergies Coded Allergies: Aspirin (Verified Adverse Reaction, Mild, ABD. PAIN AND VOMITING, 12/09/16) Physical Exam Vital Signs Date Time Temp Pulse Resp B/P Pulse Ox O2 Delivery O2 Flow Rate FiO2 12/10/16 01:36 103 12/10/16 00:20 104 20 128/83 94 Room Air 12/09/16 22:55 102 20 108/64 93 Room Air 12/09/16 22:10 103 12/09/16 21:52 101 20 113/71 93 Room Air 12/09/16 19:41 37.0 112 18 149/87 93 Room Air Physical Exam GENERAL: Patient is in no acute distress. HEENT: No acute trauma, normocephalic atraumatic, mucous membranes moist, no nasal congestion, no scleral icterus. NECK: No stridor, no adenopathy, no meningismus, trachea is midline. LUNGS: Clear to auscultation bilaterally, no wheeze, no rhonchi, breath sounds equal. HEART: Tachycardiac rate, regular rhythm. No murmurs appreciated. CHEST: There is a healing wound to the left lateral chest. No signs of cellulitis. ABDOMEN: Soft, nontender, bowel sounds positive, no hernias, no peritonitis. EXTREMITIES: No cyanosis or edema, full range of motion of all the joints without pain or difficulty, no signs for acute trauma. NEUROLOGIC: Oriented x 3, no acute motor or sensory deficits, no focal weakness. SKIN: No rash, no jaundice, no diaphoresis. Medical Decision & Procedures ER Provider Diagnostic Interpretation: X ray results and stated below per my interpretation and radiologist interpretation. Other radiology results and stated below per my review and radiologist interpretation: CTA CHEST: Compared to noncontrast exam of 11/23/2016. Multilobar PE, most pronounced in the RLL. No clear CT findings of right heart strain. Interval improvement in bibasilar consolidation. Residual volume loss on the left as well as a small pleural effusion. The left-sided chest tube has been removed. Remonstrated pace device and trace pericardial effusion. Radiologist: Brenton Bowden M.D. Laboratory Results 12/09/16 22:24 Red Blood Count 4.01, Mean Corpuscular Volume 90.0, Mean Corpuscular Hemoglobin 27.4, Mean Corpuscular Hemoglobin Concent 30.5, Mean Platelet Volume 9.6, Neutrophils (%) (Auto) 78.4, Lymphocytes (%) (Auto) 11.8, Monocytes (%) (Auto) 7.9, Eosinophils (%) (Auto) 1.5, Basophils (%) (Auto) 0.3, Neutrophils # (Auto) 7.38, Lymphocytes # (Auto) 1.11, Monocytes # (Auto) 0.74, Eosinophils # (Auto) 0.14, Basophils # (Auto) 0.03 12/09/16 21:45 Test 12/09/16 21:45 12/09/16 22:24 Anion Gap 8.0 mmol/L (3-11) Est Creatinine Clear Calc Drug Dose 57.5 ml/min Estimated GFR () 76.1 Estimated GFR (Non- 65.7 BUN/Creatinine Ratio 14.7 (10-20) Calcium Level 8.3 mg/dl (8.5-10.1) Troponin I < 0.015 ng/ml (0-0.045) Chemistry Specimen Hemolysis White Blood Count 9.41 K/uL (4.8-10.8) Red Blood Count 4.01 M/uL (4.2-5.4) Hemoglobin 11.0 g/dL (12.0-16.0) Hematocrit 36.1 % (37-47) Mean Corpuscular Volume 90.0 fL (80-100) Mean Corpuscular Hemoglobin 27.4 pg (25-34) Mean Corpuscular Hemoglobin Concent 30.5 g/dl (32-36) Platelet Count 265 K/uL (130-400) Mean Platelet Volume 9.6 fL (7.4-10.4) Neutrophils (%) (Auto) 78.4 % Lymphocytes (%) (Auto) 11.8 % Monocytes (%) (Auto) 7.9 % Eosinophils (%) (Auto) 1.5 % Basophils (%) (Auto) 0.3 % Neutrophils # (Auto) 7.38 K/uL (1.4-6.5) Lymphocytes # (Auto) 1.11 K/uL (1.2-3.4) Monocytes # (Auto) 0.74 K/uL (0.11-0.59) Eosinophils # (Auto) 0.14 K/uL (0-0.5) Basophils # (Auto) 0.03 K/uL (0-0.2) RDW Standard Deviation 51.4 fL (36.4-46.3) RDW Coefficient of Variation 15.5 % (11.5-14.5) Immature Granulocyte % (Auto) 0.1 % Immature Granulocyte # (Auto) 0.01 K/uL (0.00-0.02) Prothrombin Time 11.0 SECONDS (9.0-12.0) Prothromb Time International Ratio 1.0 (0.9-1.1) Activated Partial Thromboplast Time 35.6 SECONDS (21.0-31.0) Partial Thromboplastin Ratio 1.4 Laboratory results reviewed by me. Medications Administered Medications (Trade) Dose Ordered Sig/Barb Route Start Time Stop Time Status Last Admin Dose Admin Sodium Chloride 250 ml @ 999 mls/hr Q16M STAT IV 12/09/16 21:28 12/09/16 21:43 DC 12/09/16 21:52 999 MLS/HR Sodium Chloride (Nss 1000ml) 1,000 ml @ 125 mls/hr Q8H STAT IV 12/09/16 21:28 12/10/16 05:27 12/09/16 22:01 125 MLS/HR Heparin Sodium/ Dextrose (Heparin 25,000 Unit/500ml D5W) 25,000 unit STK-MED ONCE .ROUTE 12/10/16 00:28 12/10/16 00:29 DC 12/10/16 00:38 25,000 UNIT ECG Indication: SOB/dyspnea Rate (beats per minute): 98 Rhythm: normal sinus Findings: RBBB, no acute ischemic change, no ectopy Comparison ECG Date: 11/26/2016 Change: no significant change ED Course 2125: The patient was evaluated in room C7. A complete history and physical exam was performed. 2127: Ordered Sodium Chloride 1000 mL @ 125 mL/hr IV, Sodium Chloride 250 mL @ 999 mL/hr IV. 0004: I discussed the radiology findings with [employer] at this time. 8: I reevaluate the patient at this time, she is resting in bed. 13: I discussed the case with Dr. Hortensia NICHOLS Hospitalist, he will evaluate the patient for further treatment. Medical Decision Differential Diagnosis include: Pneumothorax, pneumonia, pleural effusion, pulmonary embolism, musculoskeletal pain, electrolyte imbalance, dehydration. There is no leukocytosis or worrisome anemia. No significant electrolyte abnormality or kidney failure. EKG shows a normal sinus rhythm with a right bundle branch block. No acute ischemia. Cardiac enzyme testing times one is not consistent with acute cardiac injury. Chest CT shows bilateral pulmonary emboli, no cardiac strain noted by CT. The patient did receive IV saline, she was placed on IV heparin. She will require a hospital stay and IV anticoagulation. I did speak with the patient and case management. The on-call hospitalist was consulted. Consults Time Called: 8 Consulting Physician: Dr. Hortensia Ballard Returned Call: 13 I discussed the case with Dr. Hortensia Ballard, he will evaluate the patient for further treatment. Impression Primary Impression: Pulmonary emboli Scribe Attestation The scribe's documentation has been prepared under my direction and personally reviewed by me in its entirety. I confirm that the note above accurately reflects all work, treatment, procedures, and medical decision making performed by me. Departure Information Dispostion Being Evaluated By Hospitalist Referrals Hannah Marshall C.R.N.Fidencio (PCP) Patient Instructions My [facility]
[2016-12-09 22:34] LABS: BLOOD UREA NITROGEN 13 mg/dl (7-18); BUN/CREATININE RATIO 14.7 (10-20); CARBON DIOXIDE 26 mmol/L (21-32); CHLORIDE 105 mmol/L (98-107); CREATININE 0.89 mg/dl (0.60-1.20); GLUCOSE 100 mg/dl (70-99); POTASSIUM 4.2 mmol/L (3.5-5.1); SODIUM 139 mmol/L (136-145)
[2016-12-09 22:37] LABS: BASO % 0.3 %; BASO ABS # 0.03 K/uL (0-0.2); COMPLETE YES; EOS % 1.5 %; HEMATOCRIT 36.1 % (37-47); IG% 0.1 %; LYMPH % 11.8 %; LYMPH ABS # 1.11 K/uL (1.2-3.4); MEAN CORPUSCULAR HEMOGLOBIN 27.4 pg (25-34); MEAN CORPUSCULAR HGB CONC 30.5 g/dl (32-36); MEAN PLATELET VOLUME 9.6 fL (7.4-10.4); MONO % 7.9 %; NEUT % 78.4 %; PLATELET COUNT 265 K/uL (130-400); RED BLOOD COUNT 4.01 M/uL (4.2-5.4); WHITE BLOOD COUNT 9.41 K/uL (4.8-10.8)
[2016-12-09 22:47] LABS: PARTIAL THROMBOPLASTIN RATIO 1.4
[2016-12-09 22:55] LABS: CALCIUM 8.3 mg/dl (8.5-10.1)
[2016-12-09] MEDS ORDERED: OPTIRAY 320 IV PRN (23:15)
[2016-12-10] MEDS ORDERED: HEPARIN 25000 UNIT/500 ML D5W ONE (00:28)
--- NOTE | 2016-12-10 01:17 | History and Physical ---
History & Physical Date & Time of Service: Dec 10, 2016 at 01:13 Chief Complaint: Blood Clot L Lung Referred By Md To Come [facility] Primary Care Physician: Hannah Marshall C.R.N.P History of Present Illness Source: patient 71 y/o F w/Hx of recent pacer placement due to complete heart block. She was admitted to the ICU following a syncopal episode which lead to the diagnosis on 11/12/16. She had a pacer placed the following day. She suffered a complication on 11/15 involving wire migration, ventricular puncture and tamponade in addition to a hemothorax. She had a multiple drains placed and gradually recovered leading to discharge on 11/28. She has had a degree of SOB and pleuritic CP and SOB over the past week. Her primary MD obtained a D Dimer which was elevated and instructed her to attending the hospital. A CT was obtained revealing multilobar PEs. The pt also states that one day prior she developed some drainage from the site of her previous chest tube. She was placed on Augmentin by her primary MD and has had 2 doses thus far. Past Medical/Surgical History Medical Problems: (1) Asthma, Unspecified Status: Chronic (2) Dehydration Status: Resolved (3) Esophageal Reflux Status: Chronic (4) Hypertension Nos Status: Chronic (5) Loss of consciousness Status: Resolved (6) Loss of consciousness Status: Resolved (7) Lumb/Lumbosac Disc Degen Status: Chronic (8) Macular Degeneration Nos Status: Chronic (9) Nasal bone fracture Status: Resolved (10) Nasal bone fracture Status: Resolved (11) Nausea Status: Resolved (12) Osteoporosis Nos Status: Chronic (13) Vertigo Status: Chronic 14) Complete heart block - post pacer placement 11/13/16 15) Tamponade due to ventricular puncture 11/15 16) Hemothorax 11/15 Surgical Problems: (1) Knee joint replacement status Status: Resolved Family History Diabetes mellitus Hypertension Social History Smoking Status: Never Smoker Drug Use: none Marital Status: Housing status: lives alone Occupational Status: retired Immunizations History of Influenza Vaccine: Yes Influenza Vaccine Date: Jun 23, 2008 History of Tetanus Vaccine?: Yes History of Pneumococcal: Yes History of Hepatitis B Vaccine: No Multi-Drug Resistant Organisms History of MDRO: No Allergies Coded Allergies: Aspirin (Verified Adverse Reaction, Mild, ABD. PAIN AND VOMITING, 12/09/16) Home Medications Scheduled Amiodarone HCl (Amiodarone HCl), 200 MG PO QAM Calcium/Vitamin D (Os-Lito 500 Plus D), 1 TAB PO BID Cholecalciferol (Vitamin D3), 1 TAB PO DAILY Ipratropium-Albuterol (Combivent Respimat), 1 PUFFS INH QID Ocuvite Preservision (Ocuvite Preservision), 1 TAB PO BID Pantoprazole (Protonix), 40 MG PO DAILY Ranitidine (Zantac), 150 MG PO BID Sennosides-Docusate Sodium (Stool Softener), 3 TAB PO DAILY Scheduled PRN Meclizine Hcl (Meclizine Hcl), 25 MG PO TID PRN for DIZZY Nitroglycerin (Nitrostat), 0.4 MG UT PRN PRN for Heartburn Tramadol (Ultram), 1 TAB PO BID PRN for Pain Review of Systems Constitutional: No chills, No fever, No sweats Eyes: No eye pain, No worsening of vision ENT: No hearing loss, No nasal symptoms, No unusual epistaxis Respiratory: + dyspnea at rest, + dyspnea on exertion, + shortness of breath, No cough, No sputum, No wheezing Cardiovascular: + chest pain (pleuritic), No PND, No orthopnea Abdomen: No nausea, No pain, No vomiting Musculoskeletal: No joint pain, No muscle pain Genitourinary - Female: No dysuria, No urinary frequency, No urinary urgency Neurologic: No memory loss, No paralysis, No weakness Psychiatric: No depression symptoms Endocrine: No fatigue Hematologic / Lymphatic: No abnormal bleeding/bruising Integumentary: No rash Allergic / Immunologic: No environmental allergies Physical Exam Vital Signs Date Time Temp Pulse Resp B/P Pulse Ox O2 Delivery O2 Flow Rate FiO2 12/10/16 00:20 104 20 128/83 94 Room Air 12/09/16 22:55 102 20 108/64 93 Room Air 12/09/16 22:10 103 12/09/16 21:52 101 20 113/71 93 Room Air 12/09/16 19:41 37.0 112 18 149/87 93 Room Air General Appearance: WD/WN, no apparent distress Head: normocephalic, atraumatic Eyes: normal inspection, PERRL, EOMI ENT: normal ENT inspection, pharynx normal Neck: supple, no JVD Respiratory/Chest: chest non-tender, lungs clear, normal breath sounds, no respiratory distress, no accessory muscle use Cardiovascular: no edema, no gallop, no JVD, no murmur, normal peripheral pulses, + tachycardia Abdomen/GI: normal bowel sounds, non tender, soft Back: normal inspection Extremities/Musculoskelatal: normal inspection, no calf tenderness, normal capillary refill Neurologic/Psych: administrative support manager II-XII nml as tested, no motor/sensory deficits, alert, normal mood/affect, normal reflexes, oriented x 3 Diagnostics Laboratory Results Results Past 24 Hours Test 12/09/16 21:45 12/09/16 22:24 Range/Units Sodium Level 139 136-145 mmol/L Potassium Level 4.2 3.5-5.1 mmol/L Chloride Level 105 98-107 mmol/L Carbon Dioxide Level 26 21-32 mmol/L Anion Gap 8.0 3-11 mmol/L Blood Urea Nitrogen 13 7-18 mg/dl Creatinine 0.89 0.60-1.20 mg/dl Est Creatinine Clear Calc Drug Dose 57.5 ml/min Estimated GFR () 76.1 Estimated GFR (Non- 65.7 BUN/Creatinine Ratio 14.7 10-20 Random Glucose 100 70-99 mg/dl Calcium Level 8.3 8.5-10.1 mg/dl Troponin I < 0.015 0-0.045 ng/ml Chemistry Specimen Hemolysis White Blood Count 9.41 4.8-10.8 K/uL Red Blood Count 4.01 4.2-5.4 M/uL Hemoglobin 11.0 12.0-16.0 g/dL Hematocrit 36.1 37-47 % Mean Corpuscular Volume 90.0 80-100 fL Mean Corpuscular Hemoglobin 27.4 25-34 pg Mean Corpuscular Hemoglobin Concent 30.5 32-36 g/dl Platelet Count 265 130-400 K/uL Mean Platelet Volume 9.6 7.4-10.4 fL Neutrophils (%) (Auto) 78.4 % Lymphocytes (%) (Auto) 11.8 % Monocytes (%) (Auto) 7.9 % Eosinophils (%) (Auto) 1.5 % Basophils (%) (Auto) 0.3 % Neutrophils # (Auto) 7.38 1.4-6.5 K/uL Lymphocytes # (Auto) 1.11 1.2-3.4 K/uL Monocytes # (Auto) 0.74 0.11-0.59 K/uL Eosinophils # (Auto) 0.14 0-0.5 K/uL Basophils # (Auto) 0.03 0-0.2 K/uL RDW Standard Deviation 51.4 36.4-46.3 fL RDW Coefficient of Variation 15.5 11.5-14.5 % Immature Granulocyte % (Auto) 0.1 % Immature Granulocyte # (Auto) 0.01 0.00-0.02 K/uL Prothrombin Time 11.0 9.0-12.0 SECONDS Prothromb Time International Ratio 1.0 0.9-1.1 Activated Partial Thromboplast Time 35.6 21.0-31.0 SECONDS Partial Thromboplastin Ratio 1.4 Diagnostic Radiology CTA: Multilobar PE - most pronounced in RLL EKG Sinus tach - RBBB Impression Assessment and Plan 71 y/o F w/Hx of recent pacer placement due to complete heart block. She was admitted to the ICU following a syncopal episode which lead to the diagnosis on 11/12/16. She had a pacer placed the following day. She suffered a complication on 11/15 involving wire migration, ventricular puncture and tamponade in addition to a hemothorax. She had a multiple drains placed and gradually recovered leading to discharge on 11/28. She has had a degree of SOB and pleuritic CP and SOB over the past week. Her primary MD obtained a D Dimer which was elevated and instructed her to attending the hospital. A CT was obtained revealing multilobar PEs. The pt also states that one day prior she developed some drainage from the site of her previous chest tube. She was placed on Augmentin by her primary MD and has had 2 doses thus far. 1) B/L PEs - In retrospect this is not surprising considering a prolonged period of immobility where she was unable to receive anticoagulants. She is hemodynamically stable without saddle emboli, hypoxia or evidence of heart strain. Considering her recent complications however, we will prefer to start her on Heparin under telemetry observation as opposed to immediate D/C with oral anticoagulants or Lovenox. 2) Asthma - can continue her inhalers as needed 3) Regarding her drain site - I do not appreciate significant drainage at present however she states that there was one day prior - we will honor her Augmentin prescription while she is hospitalized. Level of Care Telemetry Resuscitation Status FULL RESUSCITATION VTE Prophylaxis Given or contraindicated: Other Anticoagulation
[2016-12-10] MEDS ORDERED: ZOLPIDEM TARTRATE 5 MG TAB PO PRN (01:45)
[2016-12-10] MEDS ORDERED: NITROGLYCERIN 0.4 MG SL PER TAB CHARGE SL PRN (01:45)
[2016-12-10] MEDS ORDERED: ALUMINUM/MAGNESIUM/SIMETH (MAALOX MAX) 30 ML UDC PO PRN (01:45)
[2016-12-10] MEDS ORDERED: POLYETHYLENE (MIRALAX) 17 GM PACK PO PRN (01:45)
[2016-12-10] MEDS ORDERED: ONDANSETRON INJ 2 MG/ML 2 ML VIAL IV PRN (01:45)
[2016-12-10] MEDS ORDERED: MAGNESIUM HYDROXIDE SUSP 30 ML UDC PO PRN (01:45)
[2016-12-10] MEDS ORDERED: MECLIZINE HCL 25 MG TAB PO PRN (01:45)
[2016-12-10 02:26] VITALS: BP 139/81; PULSE 103; TEMP 36.9; O2SAT 92; Ht 157.5 cm; Wt 79.8 kg
[2016-12-10 04:05] VITALS: BP 102/55; PULSE 102; TEMP 37.2; O2SAT 97
[2016-12-10] MEDS: TRAMADOL HCL 50 MG TAB PO PRN ×2 (06:13→19:05)
[2016-12-10] MEDS: NITROGLYCERIN OINT 2% 1GM PACKET EXT SCH ×2 (06:14→10:00)
[2016-12-10 07:34] LABS: PARTIAL THROMBOPLASTIN RATIO 1.7
--- NOTE | 2016-12-10 07:34 | DIAGNOSTIC IMAGING REPORT ---
CHEST CTA for PULMONARY ARTERIES CT DOSE: 355.60 mGy.cm HISTORY: Short of breath. TECHNIQUE: Multiaxial CT images of the chest were performed following the intravenous administration of contrast to evaluate the pulmonary arteries. Maximal intensity projection images were also obtained. COMPARISON STUDY: Chest CT 11/23/2016. FINDINGS: No evidence for an aortic dissection. Small left pleural effusion has decreased in size. Pacemaker leads appear to be in good position. No significant pericardial effusion. Multilobar bilateral pulmonary emboli. No evidence for right-sided heart strain this time. He visualized liver and spleen are unremarkable. No mediastinal or hilar lymphadenopathy. Linear areas of consolidation most pronounced within the left lower lobe favor subsegmental atelectasis. IMPRESSION: 1. Multiple scattered pulmonary emboli. 2. Small left pleural effusion which is decreased in size. 3. Scattered linear densities favor subsegmental atelectasis. Electronically signed by: Reece Alaniz M.D. 12/10/2016 7:33 AM Dictated Date/Time: 12/10/2016 7:28 AM
[2016-12-10 07:40] VITALS: BP 96/65; PULSE 102; TEMP 37; O2SAT 91
[2016-12-10] MEDS: RANITIDINE HCL 150 MG TAB PO SCH ×2 (08:00→20:47)
[2016-12-10] MEDS: PANTOprazole SOD 40 MG TAB PO SCH (08:00)
[2016-12-10] MEDS ORDERED: FENTANYL 12 MCG/HR TDSY TD SCH (08:00)
[2016-12-10] MEDS: IPRATROPIUM BROMIDE/ALBUTEROL respimat INH INH SCH ×4 (08:00→20:47)
[2016-12-10] MEDS: CEROVITE ADV FORMULA TAB PO SCH ×2 (08:00→20:47)
[2016-12-10] MEDS: AMIODARONE 200 MG TAB PO SCH (08:00)
[2016-12-10] MEDS: CALCIUM 600MG + VIT D 400 IU TAB PO SCH ×2 (08:00→20:47)
[2016-12-10] MEDS: AMOXICILLIN/CLAVULANATE TAB 875 MG TAB PO SCH ×2 (08:00→17:52)
[2016-12-10] MEDS ORDERED: HEPARIN IV BOLUS 2,000 UNIT in SYRINGE 0 ML IV ONE (08:00)
[2016-12-10] MEDS: DOCUSATE SODIUM/SENNA 50/8.6MG TAB PO SCH (08:00)
[2016-12-10] MEDS: CHOLECALCIFEROL 1000 INTER.UNIT TAB PO SCH (08:00)
--- NOTE | 2016-12-10 14:47 | Progress Note ---
Subjective Date of Service: Dec 10, 2016. Subjective Pt evaluation today including: conversation w/ patient, physical exam, chart review, lab review, review of studies, review of inpatient medication list SOB and pleuritic CP is a little be better Left chest wall skin has some drainages from previous chest tube place Conversational, no dizziness, no other complaint Problem List Medical Problems: (1) Asthma, Unspecified Status: Chronic (2) Esophageal Reflux Status: Chronic (3) Hypertension Nos Status: Chronic (4) Lumb/Lumbosac Disc Degen Status: Chronic (5) Macular Degeneration Nos Status: Chronic (6) Osteoporosis Nos Status: Chronic (7) Pulmonary emboli Status: Acute (8) Syncope Status: Acute (9) Vertigo Status: Chronic Review of Systems Constitutional: + fatigue, No chills, No fever, No problem reported, No sweats , No weakness, No weight loss Eyes: No diplopia, No discharge, No eye pain, No redness, No worsening of vision ENT: No dental problems, No hearing loss, No nasal symptoms, No sore throat, No tinnitus, No trouble swallowing, No unusual epistaxis Respiratory: + shortness of breath, No cough, No dyspnea at rest, No dyspnea on exertion, No hemoptysis, No sputum, No wheezing Cardiac: No PND, No chest pain, No claudication, No edema, No orthopnea, No palpitations Abdomen: No constipation, No diarrhea, No nausea, No pain, No vomiting Musculoskeletal: No calf pain, No joint pain, No muscle pain, No swelling Female : No abnormal vaginal bleeding, No dysuria, No hematuria, No incontinence, No urinary frequency, No vaginal discharge Neurologic: No balance problems, No memory loss, No numbness/tingling, No paralysis, No vertigo, No weakness Psychiatric: No anhedonism, No anxiety, No depression symptoms, No insomnia, No substance abuse Heme: No abnormal bleeding/bruising, No clotting problems, No night sweats, No swollen lymph nodes Endo: No excessive thirst, No excessive urination, No fatigue Skin: No bleeding, No color change, No itch, No new/changing skin lesions, No rash Objective Vital Signs Date Time Temp Pulse Resp B/P Pulse Ox O2 Delivery O2 Flow Rate FiO2 12/10/16 12:00 Room Air 12/10/16 08:00 Room Air 12/10/16 07:40 37.0 102 20 96/65 91 Room Air 12/10/16 04:05 37.2 102 20 102/55 97 Nasal Cannula 2.0 12/10/16 04:00 Room Air 12/10/16 02:26 36.9 103 15 139/81 92 Room Air 12/10/16 02:15 107 20 116/68 93 12/10/16 01:36 103 12/10/16 00:20 104 20 128/83 94 Room Air 12/09/16 22:55 102 20 108/64 93 Room Air 12/09/16 22:10 103 12/09/16 21:52 101 20 113/71 93 Room Air 12/09/16 19:41 37.0 112 18 149/87 93 Room Air Physical Exam General Appearance: WD/WN, no apparent distress Eyes: normal inspection, PERRL, EOMI, sclerae normal ENT: normal ENT inspection, hearing grossly normal, pharynx normal Neck: supple, no adenopathy, thyroid normal, no JVD, no carotid bruits, trachea midline Respiratory/Chest: chest non-tender, lungs clear, normal breath sounds, no respiratory distress, no accessory muscle use, + pertinent finding (left chest wall chest tube area skin has mild red and mild drainage,) Cardiovascular: regular rate, rhythm, no edema, no gallop, no JVD, no murmur Abdomen: normal bowel sounds, non tender, soft, no organomegaly, no pulsatile mass Extremities: normal range of motion, non-tender, normal inspection, no pedal edema, no calf tenderness, normal capillary refill, pelvis stable Neurologic/Psychiatric: manager it security II-XII nml as tested, no motor/sensory deficits, alert, normal mood/affect, oriented x 3 Skin: normal color, warm/dry, no rash Lymphatic: no adenopathy Laboratory Results Last 24 Hours Test 12/09/16 21:45 12/09/16 22:24 12/10/16 07:15 12/10/16 14:18 Sodium Level 139 mmol/L Potassium Level 4.2 mmol/L Chloride Level 105 mmol/L Carbon Dioxide Level 26 mmol/L Anion Gap 8.0 mmol/L Blood Urea Nitrogen 13 mg/dl Creatinine 0.89 mg/dl Est Creatinine Clear Calc Drug Dose 57.5 ml/min Estimated GFR () 76.1 Estimated GFR (Non- 65.7 BUN/Creatinine Ratio 14.7 Random Glucose 100 mg/dl Calcium Level 8.3 mg/dl Troponin I < 0.015 ng/ml Chemistry Specimen Hemolysis White Blood Count 9.41 K/uL Red Blood Count 4.01 M/uL Hemoglobin 11.0 g/dL Hematocrit 36.1 % Mean Corpuscular Volume 90.0 fL Mean Corpuscular Hemoglobin 27.4 pg Mean Corpuscular Hemoglobin Concent 30.5 g/dl Platelet Count 265 K/uL Mean Platelet Volume 9.6 fL Neutrophils (%) (Auto) 78.4 % Lymphocytes (%) (Auto) 11.8 % Monocytes (%) (Auto) 7.9 % Eosinophils (%) (Auto) 1.5 % Basophils (%) (Auto) 0.3 % Neutrophils # (Auto) 7.38 K/uL Lymphocytes # (Auto) 1.11 K/uL Monocytes # (Auto) 0.74 K/uL Eosinophils # (Auto) 0.14 K/uL Basophils # (Auto) 0.03 K/uL RDW Standard Deviation 51.4 fL RDW Coefficient of Variation 15.5 % Immature Granulocyte % (Auto) 0.1 % Immature Granulocyte # (Auto) 0.01 K/uL Prothrombin Time 11.0 SECONDS Prothromb Time International Ratio 1.0 Activated Partial Thromboplast Time 35.6 SECONDS 43.9 SECONDS Partial Thromboplastin Ratio 1.4 1.7 Assessment and Plan 71 y/o F admitted on 12/09/2016 because of acute PE with SOB and pleuritic CP and SOB over the past week. 1) acute B/L PEs - This is new diagnosis, which is different from previous Admission Continue Heparin drip , telemetry observation Check Doppler ultrasound bilateral lower extremity and right upper arm, because of recent central line Discussed with patient about options of blood thinner, and risk and benefit She is okay to check her insurance company's for the co-pay of Xarelto Hx of recent pacer placement due to complete heart block. She was admitted to the ICU following a syncopal episode which lead to the diagnosis on 11/12/16. She had a pacer placed the following day. She suffered a complication on 11/15 involving wire migration, ventricular puncture and tamponade in addition to a hemothorax. She had a multiple drains placed and gradually recovered leading to discharge on 11/28. There is some skin drainages in left chest wall area, which is from previous chest tube placement, is getting Augmentin I agreed to give some bacitracin topical use, and he dressed change DVT prophylaxis is covered Patient is full code Possible discharge in day 1 to 1 days after figure out home medication for the treatment of PE Continued [facility] stay due to: multiple IV medications needed Discharge planning: home
[2016-12-10 15:48] VITALS: BP 92/58; PULSE 97; TEMP 37; O2SAT 92
[2016-12-10] MEDS: CHECK FENTANYL PATCH PLACEMENT SCH ×2 (16:00→23:57)
[2016-12-10] MEDS ORDERED: NURSING VERBAL MED ORDER ONE (17:30)
[2016-12-10 19:42] VITALS: BP 93/59; PULSE 101; TEMP 37.3; O2SAT 91
[2016-12-10] MEDS: ACETAMINOPHEN 325 MG TAB PO PRN (20:50)
[2016-12-10] MEDS: HEPARIN 25,000 UNIT/500ML D5W 500 ML IV PRN (22:23)
[2016-12-10 23:23] VITALS: BP 97/60; PULSE 95; TEMP 37.1; O2SAT 94
[2016-12-11] VITALS (7 sets, daily range): BP systolic 93–126; BP diastolic 61–81; PULSE 82–91; TEMP 36.4–37.3; O2SAT 90–95
[2016-12-11 06:56] LABS: BASO % 0.8 %; BASO ABS # 0.05 K/uL (0-0.2); COMPLETE YES; EOS % 2.8 %; HEMATOCRIT 36.1 % (37-47); IG% 0.3 %; LYMPH % 10.2 %; LYMPH ABS # 0.66 K/uL (1.2-3.4); MEAN CELL VOLUME 89.8 fL (80-100); MEAN CORPUSCULAR HEMOGLOBIN 27.1 pg (25-34); MEAN CORPUSCULAR HGB CONC 30.2 g/dl (32-36); MEAN PLATELET VOLUME 9.6 fL (7.4-10.4); MONO % 9.6 %; NEUT % 76.3 %; PLATELET COUNT 275 K/uL (130-400); RED BLOOD COUNT 4.02 M/uL (4.2-5.4); WHITE BLOOD COUNT 6.45 K/uL (4.8-10.8)
[2016-12-11 07:33] LABS: BUN/CREATININE RATIO 14.3 (10-20); CALCIUM 8.6 mg/dl (8.5-10.1); CREATININE 0.8 mg/dl (0.60-1.20); MAGNESIUM 2.3 mg/dl (1.8-2.4)
[2016-12-11] MEDS ORDERED: NURSING VERBAL MED ORDER ONE (07:45)
[2016-12-11] MEDS: CHECK FENTANYL PATCH PLACEMENT SCH ×2 (08:00→16:08)
[2016-12-11 08:33] LABS: PARTIAL THROMBOPLASTIN RATIO 2.2
[2016-12-11] MEDS: IPRATROPIUM BROMIDE/ALBUTEROL respimat INH INH SCH ×4 (08:50→20:40)
[2016-12-11] MEDS: DOCUSATE SODIUM/SENNA 50/8.6MG TAB PO SCH (08:50)
[2016-12-11] MEDS: RANITIDINE HCL 150 MG TAB PO SCH ×2 (08:50→20:39)
[2016-12-11] MEDS: PANTOprazole SOD 40 MG TAB PO SCH (08:52)
[2016-12-11] MEDS: CEROVITE ADV FORMULA TAB PO SCH ×2 (08:52→20:39)
[2016-12-11] MEDS: AMOXICILLIN/CLAVULANATE TAB 875 MG TAB PO SCH ×2 (08:52→16:43)
[2016-12-11] MEDS: CALCIUM 600MG + VIT D 400 IU TAB PO SCH ×2 (08:52→20:39)
[2016-12-11] MEDS: CHOLECALCIFEROL 1000 INTER.UNIT TAB PO SCH (08:53)
[2016-12-11] MEDS: AMIODARONE 200 MG TAB PO SCH (08:53)
[2016-12-11] MEDS: BACITRACIN OINT 15 GM TUBE EXT SCH ×2 (08:55→20:40)
--- NOTE | 2016-12-11 10:56 | DIAGNOSTIC IMAGING REPORT ---
RIGHT UPPER EXTREMITY VENOUS DOPPLER CLINICAL HISTORY: Right internal jugular line on recent hospitalization. COMPARISON STUDY: No previous studies for comparison. FINDINGS: The right internal jugular, subclavian, axillary, brachial, basilic, radial and ulnar veins are patent. IMPRESSION: No deep venous thrombus within the right upper extremity. Electronically signed by: Doug Schuler M.D. 12/11/2016 10:55 AM Dictated Date/Time: 12/11/2016 10:53 AM
--- NOTE | 2016-12-11 10:58 | DIAGNOSTIC IMAGING REPORT ---
BILATERAL LOWER EXTREMITY VENOUS DOPPLER CLINICAL HISTORY: Pulmonary emboli. COMPARISON STUDY: Left lower extremity venous Doppler March 13, 2008 TECHNIQUE: Sonography of the deep venous system of the bilateral lower extremities was performed. Compression and augmentation were evaluated. FINDINGS: The right common femoral, superficial femoral and popliteal veins were compressible. Augmentation was normal. Flow was shown within the deep calf vessels. There was occlusive thrombus within one of two paired left posterior tibial veins. IMPRESSION: Deep venous thrombus within the left posterior tibial vein. Electronically signed by: Doug Schuler M.D. 12/11/2016 10:57 AM Dictated Date/Time: 12/11/2016 10:55 AM
--- NOTE | 2016-12-11 12:43 | Hospitalist Progress Note ---
Hospitalist Progress Note Date of Service Dec 11, 2016. Subjective Pt evaluation today including: conversation w/ patient, physical exam, chart review, lab review, review of studies, review of inpatient medication list Patient seen and evaluated. Doppler ultrasounds obtained which reveal DVT and left posterior tibial vein. Patient does recall having significant edema in the left leg on previous admission and would intermittently have pain that spontaneously resolved. She denies history of blood clots in the past however states she was on Coumadin after her knee replacement. Continues to have pleuritic chest pain with deep inspiration. She denies shortness of breath. Site of previous left chest tube continues to drain a clear liquid, incision site yellow colored, surrounding skin without erythema. Continues to have pain at site of chest tube. Additional Comments: REVIEW OF SYSTEMS: General/Constitutional: Denies fever/chills, fatigue, weakness ENT: Denies visual changes, nasal drainage, hearing loss, sore throat, trouble swallowing Cardiovascular: +pleuritic chest pain; Denies palpitations, edema Respiratory: Denies cough, sputum, SOB, wheezing, orthopnea GI: Denies nausea, vomiting, abdominal pain, constipation, diarrhea, melena/ hematochezia : Denies dysuria, frequency, hematuria Musculoskeletal: +intermittent R knee pain (site of replacement - chronic); Denies weakness, swelling Neurologic: Denies dizziness/lightheadedness, numbness/tingling, weakness Psychiatric: Deferred Endocrine: Deferred Hematologic/Lymphatic: Denies previous H/O DVT/PE Skin: Denies rash, itch, new skin changes, easy bruising Allergy/Immunologic: Deferred Medications Current Inpatient Medications Medications (Trade) Dose Ordered Sig/Barb Route Start Time Stop Time Status Last Admin Dose Admin Ioversol (Optiray 320) 125 ml UD PRN IV 12/09/16 23:15 12/13/16 23:14 Amiodarone HCl (Cordarone Tab) 200 mg QAM PO 12/10/16 09:00 01/09/17 08:59 12/11/16 08:53 200 MG Calcium/Vitamin D (Caltrate Plus Tab) 1 tab BID PO 12/10/16 09:00 01/09/17 08:59 12/11/16 08:52 1 TAB Albuterol/ Ipratropium (Combivent Respimat Inh) 1 puffs QID INH 12/10/16 09:00 01/09/17 08:59 12/11/16 08:50 1 PUFFS Meclizine HCl (Antivert Tab) 25 mg TID PRN PO 12/10/16 01:45 01/09/17 01:44 Multivitamins/ Minerals (Multivitamin W/ Minerals Tab) 1 tab BID PO 12/10/16 09:00 01/09/17 08:59 12/11/16 08:52 1 TAB Pantoprazole Sodium (Protonix Tab) 40 mg DAILY PO 12/10/16 09:00 01/09/17 08:59 12/11/16 08:52 40 MG Ranitidine HCl (zANTac TAB) 150 mg BID PO 12/10/16 09:00 01/09/17 08:59 12/11/16 08:50 150 MG Senna/Docusate Sodium (Senokot S Tab) 3 tab DAILY PO 12/10/16 09:00 01/09/17 08:59 12/11/16 08:50 3 TAB Tramadol HCl (Ultram Tab) 50 mg BID PRN PO 12/10/16 01:45 01/09/17 01:44 12/10/16 19:05 50 MG Cholecalciferol (Vitamin D Tab) 2,000 inter.unit DAILY PO 12/10/16 09:00 01/09/17 08:59 12/11/16 08:53 2,000 INTER.UNIT Acetaminophen (Tylenol Tab) 650 mg Q4H PRN PO 12/10/16 01:45 01/09/17 01:44 12/10/16 20:50 650 MG Al Hydrox/Mg Hydrox/Simethicone (Maalox Max Susp) 15 ml Q4H PRN PO 12/10/16 01:45 01/09/17 01:44 Magnesium Hydroxide (Milk Of Magnesia Susp) 30 ml Q12H PRN PO 12/10/16 01:45 01/09/17 01:44 Zolpidem Tartrate (Ambien Tab) 5 mg HSZ PRN PO 12/10/16 01:45 01/09/17 01:44 Ondansetron HCl (Zofran Inj) 4 mg Q6H PRN IV 12/10/16 01:45 01/09/17 01:44 Nitroglycerin (Nitrostat Tab) 0.4 mg UD PRN SL 12/10/16 01:45 01/09/17 01:44 Morphine Sulfate (MoRPHine SULFATE INJ) 2 mg Q30M PRN IV 12/10/16 01:45 12/24/16 01:44 Polyethylene 17 gm 17 gm DAILY PRN PO 12/10/16 01:45 01/09/17 01:44 Heparin Sodium/ Dextrose (Heparin 25,000 Unit/500ml D5W) 500 ml @ 24 mls/hr [id number] PRN IV 12/10/16 02:00 01/09/17 01:59 12/10/16 22:23 24 MLS/HR Amoxicillin/ Clavulanate Potassium (Augmentin Tab) 875 mg BIDM PO 12/10/16 07:30 12/20/16 07:29 12/11/16 08:52 875 MG Miscellaneous Information (Check Fentanyl Patch Placement) 1 ea QS N/A 12/10/16 16:00 01/09/17 15:59 12/11/16 08:00 1 EA Fentanyl (Duragesic Patch) 12 mcg Q3D@0800 TD 12/12/16 08:00 12/26/16 07:59 Miscellaneous (Fentanyl Patch Remove & Waste) 1 ea Q3D@0759 N/A 12/12/16 07:59 01/11/17 07:58 Bacitracin (Bacitracin Oint) 1 appln BID EXT 12/11/16 09:00 01/10/17 08:59 12/11/16 08:55 1 APPLN Objective Vital Signs Date Time Temp Pulse Resp B/P Pulse Ox O2 Delivery O2 Flow Rate FiO2 12/11/16 11:09 36.9 86 19 118/78 95 Room Air 12/11/16 10:52 91 92 12/11/16 08:00 Room Air 12/11/16 07:42 36.5 91 20 95/62 90 Room Air 12/11/16 04:13 37.1 89 18 96/61 93 Room Air 12/11/16 04:00 Room Air 12/11/16 00:00 Room Air 12/10/16 23:23 37.1 95 16 97/60 94 Room Air 12/10/16 20:00 Room Air 12/10/16 19:42 37.3 101 18 93/59 91 Room Air 12/10/16 15:48 37.0 97 16 92/58 92 Room Air Physical Exam Notes: PHYSICAL EXAM:: General Appearance: WDWN in NAD who is A&O x 3 HEENT: Head is normocephalic/atraumatic; EOMI; PERRLA; Hearing grossly intact; Mucous membranes moist; Pharynx negative for exudate/lesions Neck: Supple; Trachea midline; Neg JVD; Neg lymphadenopathy Heart: RRR with no M/G/R Lungs: CTA in all lung chavez bilaterally; Respirations unlabored; Neg accessory muscle use Abdomen: Soft, non-tender, non-distended; Positive BS x 4 quadrants; Neg organomegaly Extremities: Capillary refill < 2 seconds; Neg cyanosis or edema Neurological: Speech clear; Gross motor/sensory function intact; Neg focal neurologic deficits Psychiatric: Appropriate mood/affect Skin: Normal Color; Warm/Dry; Neg rashes, ecchymosis; +clear drainage of previous L chest tube site with surrounding skin without erythema Laboratory Results Last 24 Hours Test 12/10/16 14:18 12/11/16 06:30 12/11/16 07:54 Activated Partial Thromboplast Time 52.8 SECONDS 56.9 SECONDS Partial Thromboplastin Ratio 2.0 2.2 White Blood Count 6.45 K/uL Red Blood Count 4.02 M/uL Hemoglobin 10.9 g/dL Hematocrit 36.1 % Mean Corpuscular Volume 89.8 fL Mean Corpuscular Hemoglobin 27.1 pg Mean Corpuscular Hemoglobin Concent 30.2 g/dl Platelet Count 275 K/uL Mean Platelet Volume 9.6 fL Neutrophils (%) (Auto) 76.3 % Lymphocytes (%) (Auto) 10.2 % Monocytes (%) (Auto) 9.6 % Eosinophils (%) (Auto) 2.8 % Basophils (%) (Auto) 0.8 % Neutrophils # (Auto) 4.92 K/uL Lymphocytes # (Auto) 0.66 K/uL Monocytes # (Auto) 0.62 K/uL Eosinophils # (Auto) 0.18 K/uL Basophils # (Auto) 0.05 K/uL RDW Standard Deviation 51.2 fL RDW Coefficient of Variation 15.5 % Immature Granulocyte % (Auto) 0.3 % Immature Granulocyte # (Auto) 0.02 K/uL Sodium Level 141 mmol/L Potassium Level 4.0 mmol/L Chloride Level 106 mmol/L Carbon Dioxide Level 26 mmol/L Anion Gap 9.0 mmol/L Blood Urea Nitrogen 11 mg/dl Creatinine 0.80 mg/dl Est Creatinine Clear Calc Drug Dose 64.0 ml/min Estimated GFR () 86.6 Estimated GFR (Non- 74.7 BUN/Creatinine Ratio 14.3 Random Glucose 103 mg/dl Calcium Level 8.6 mg/dl Magnesium Level 2.3 mg/dl Diagnostic Results BILATERAL LOWER EXTREMITY VENOUS DOPPLER CLINICAL HISTORY: Pulmonary emboli. COMPARISON STUDY: Left lower extremity venous Doppler March 13, 2008 TECHNIQUE: Sonography of the deep venous system of the bilateral lower extremities was performed. Compression and augmentation were evaluated. FINDINGS: The right common femoral, superficial femoral and popliteal veins were compressible. Augmentation was normal. Flow was shown within the deep calf vessels. There was occlusive thrombus within one of two paired left posterior tibial veins. IMPRESSION: Deep venous thrombus within the left posterior tibial vein. Assessment and Plan 71 y/o F admitted on 12/09/2016 because of acute PE with SOB and pleuritic CP and SOB over the past week. Acute B/L Pulmonary Embolism and L Posterior Tibial Vein DVT: - Doppler U/S - report reviewed - RUE without DVT; DVT and left posterior tibial vein - Continue heparin drip - plan for NOAC - Rx provided for copay evaluation for Xarelto - Manage pain with fentanyl patch and Tylenol Complete Heart Block S/P Pacemaker (November 12, 2016): - Complications on 11/15 with wire migration, ventricular puncture, tamponade, and hemothorax - she had chest tube placement - Site of previous chest tube continues to drain and was started on Augmentin by PCP - Augmentin 875 mg BID and topical bacitracin - Amiodarone 200 mg daily DVT Prophylaxis: Heparin gtt Code Status: FULL RESUSCITATION Disposition: Possible D/C tomorrow pending anticoagulation conversion - Lives alone with family nearby
[2016-12-11] MEDS: TRAMADOL HCL 50 MG TAB PO PRN (20:42)
[2016-12-11] MEDS: HEPARIN 25,000 UNIT/500ML D5W 500 ML IV PRN (21:04)
[2016-12-11] MEDS: ACETAMINOPHEN 325 MG TAB PO PRN (22:11)
[2016-12-11] MEDS: MoRPHine SULFATE 2 MG/ML CARP IV PRN (23:59)
[2016-12-12] MEDS: CHECK FENTANYL PATCH PLACEMENT SCH ×4 (00:02→23:43)
[2016-12-12 00:05] VITALS: BP 90/57; PULSE 95; TEMP 37.2; O2SAT 90
[2016-12-12 05:59] LABS: HEMATOCRIT 33.9 % (37-47); MEAN CELL VOLUME 89.9 fL (80-100); MEAN CORPUSCULAR HEMOGLOBIN 27.6 pg (25-34); MEAN CORPUSCULAR HGB CONC 30.7 g/dl (32-36); MEAN PLATELET VOLUME 9.5 fL (7.4-10.4); PLATELET COUNT 242 K/uL (130-400); RED BLOOD COUNT 3.77 M/uL (4.2-5.4)
[2016-12-12 06:37] LABS: BUN/CREATININE RATIO 10.5 (10-20); CALCIUM 8.3 mg/dl (8.5-10.1); CREATININE 0.91 mg/dl (0.60-1.20); MAGNESIUM 2.2 mg/dl (1.8-2.4)
[2016-12-12 07:19] LABS: PARTIAL THROMBOPLASTIN RATIO 1.9
[2016-12-12 07:20] VITALS: BP 116/75; PULSE 92; TEMP 37.2; O2SAT 92
[2016-12-12] MEDS ORDERED: FENTANYL PATCH REMOVE & WASTE SCH (07:59)
[2016-12-12] MEDS ORDERED: FENTANYL 12 MCG/HR TDSY TD SCH (08:00)
[2016-12-12] MEDS: CALCIUM 600MG + VIT D 400 IU TAB PO SCH ×2 (08:13→19:30)
[2016-12-12] MEDS: DOCUSATE SODIUM/SENNA 50/8.6MG TAB PO SCH (08:14)
[2016-12-12] MEDS: RANITIDINE HCL 150 MG TAB PO SCH ×2 (08:14→19:30)
[2016-12-12] MEDS: CHOLECALCIFEROL 1000 INTER.UNIT TAB PO SCH (08:14)
[2016-12-12] MEDS: PANTOprazole SOD 40 MG TAB PO SCH (08:15)
[2016-12-12] MEDS: BACITRACIN OINT 15 GM TUBE EXT SCH ×2 (08:15→19:31)
[2016-12-12] MEDS: AMIODARONE 200 MG TAB PO SCH (08:15)
[2016-12-12] MEDS: CEROVITE ADV FORMULA TAB PO SCH ×2 (08:15→19:30)
[2016-12-12] MEDS: IPRATROPIUM BROMIDE/ALBUTEROL respimat INH INH SCH ×4 (08:16→19:29)
[2016-12-12] MEDS: AMOXICILLIN/CLAVULANATE TAB 875 MG TAB PO SCH ×2 (08:17→16:34)
[2016-12-12] MEDS ORDERED: AMOX1TAB43 PO ×2 (12:20)
[2016-12-12] MEDS ORDERED: BCTO EXT ×2 (12:20)
[2016-12-12] MEDS ORDERED: DABI150C PO ×2 (14:14)
--- NOTE | 2016-12-12 14:15 | Discharge Instructions ---
Discharge Instructions Date of Service December 12, 2016. Admission Reason for Admission: Pulmonary Emboli Discharge Discharge Diagnosis / Problem: Bilateral pulmonary emboli, left lower extremity deep venous thrombosis Discharge Goals Goal(s): Decrease discomfort, Improve function, Diagnostic testing, Therapeutic intervention Activity Recommendations Activity Limitations: resume your previous activity (as tolerated) . Instructions / Follow-Up Instructions / Follow-Up You were admitted to the hospital after presenting to the ER with shortness of breath and chest pain. You were found to have acute bilateral pulmonary emboli , or clots in the lungs as well as a clot in your left leg. These clots were likely due to your recent pacemaker placement and the prolonged immobility that followed. You were started on a heparin drip to treat these clots. As you have remained stable, you will be discharged to home. You will continue to take an anticoagulation medication to treat the clots for the next 3-6 months. Medications: *Please take Pradaxa 150 mg by mouth twice a day. A prescription for the first 30 days has been sent to your pharmacy. Please follow up with your PCP for refills for the remainder of the treatment course. *Continue taking Augmentin 875 mg by mouth twice a day for a total of a 10 day course. You may continue taking the Augmentin that you already filled, however since you received some doses in the hospital, you will have too many doses left over at home. Please continue taking until 12/18/16. *Apply Bacitracin ointment to your chest wound twice a day for 7 days. *Continue your other home medications as prescribed. Follow up: *Please follow-up with your primary care provider within one week following discharge to ensure the resolution of your infection and to follow up on your blood clots. Please seek medical attention if you experience fevers, chills, sweats, chest pain, shortness of breath, nausea, vomiting, lightheadedness, loss of consciousness, numbness or tingling. Current Hospital Diet Patient's current hospital diet: AHA Diet (Heart Healthy) Discharge Diet Recommended Diet: AHA Diet (Heart Healthy) Pending Studies Studies pending at discharge: no Laboratory Results Hemoglobin A1c Test 11/13/16 06:05 Range/Units Estimated Average Glucose 117 mg/dl Hemoglobin A1c 5.7 H 4.5-5.6 % Lipid Panel Test 11/12/16 09:40 Range/Units Triglycerides Level 221 H 0-150 mg/dl Cholesterol Level 198 0-200 mg/dl HDL Cholesterol 52 mg/dl Cholesterol/HDL Ratio 3.8 LDL Cholesterol, Calculated 102 mg/dl Medical Emergencies . Who to Call and When: Medical Emergencies: If at any time you feel your situation is an emergency, please call 911 immediately. . Non-Emergent Contact Non-Emergency issues call your: Primary Care Provider Call Non-Emergent contact if: you have a fever, your pain is not controlled, your pain is worsening, your pain is unusual for you, your pain is concerning you, wound has increased drainage, wound has increased redness, wound has increased pain, you have any medication questions . Past History Medical & Surgical History: (1) DVT (deep venous thrombosis) (2) Pulmonary emboli . "Provider Documentation" section prepared by Praveena Fairbanks. . VTE Core Measure Inpt VTE Proph given/why not?: Other Anticoagulation (heparin drip)
--- NOTE | 2016-12-12 14:28 | Discharge Summary ---
Discharge Summary Date of Service December 12, 2016. (Praveena Fairbanks PA-C) Discharge Summary Admission Date: Dec 10, 2016 at 01:46 Discharge Date: December 12, 2016 Discharge Disposition: Home Principal Diagnosis: Bilateral pulmonary emboli Problems/Secondary Diagnoses: (1) Asthma, Unspecified Status: Chronic (2) Esophageal Reflux Status: Chronic (3) Hypertension Nos Status: Chronic (4) Lumb/Lumbosac Disc Degen Status: Chronic (5) Macular Degeneration Nos Status: Chronic (6) Osteoporosis Nos Status: Chronic (7) Vertigo Status: Chronic Immunizations: Have You Had Influenza Vaccine: Yes Influenza Vaccine Date: Jun 23, 2008 History of Tetanus Vaccine?: Yes History of Pneumococcal: Yes History of Hepatitis B Vaccine: No (Praveena Fairbanks PA-C) Medication Reconciliation New Medications: Dabigatran Etexilate Mesylate (Pradaxa) 150 Mg Cap 1 CAP PO BID for 30 Days, #60 CAP Amoxicillin & Pot Clavulanate (Amoxicillin/Clavulanate P) 1 Tab Tab 875 MG PO BIDM for 7 Days, #14 TAB Take 1 tablet by mouth twice a day with food for 7 days to complete your course. Bacitracin (Bacitracin Zinc) 45 Appln/15 Gm Oint 1 APPLN EXT BID for 7 Days, #1 TUBE Apply ointment to chest tube site twice a day for 7 days Continued Medications: Amiodarone HCl (Amiodarone HCl) 200 Mg Tab 200 MG PO QAM for 30 Days, #30 TAB Calcium/Vitamin D (Os-Lito 500 Plus D) Tab 1 TAB PO BID, TAB Cholecalciferol (Vitamin D3) 2,000 Unit Tab 1 TAB PO DAILY Ipratropium-Albuterol (Combivent Respimat) 1 Aer Aer 1 PUFFS INH QID, INH Meclizine Hcl (Meclizine Hcl) 25 Mg Tab 25 MG PO TID PRN for DIZZY Nitroglycerin (Nitrostat) 0.4 Mg Sub 0.4 MG UT PRN PRN for Heartburn, BTL Ocuvite Preservision (Ocuvite Preservision) 1 Tab Tab 1 TAB PO BID, 0 Refills Pantoprazole (Protonix) 40 Mg Tab 40 MG PO DAILY, #30 TAB Ranitidine (Zantac) 150 Mg Tab 150 MG PO BID, TAB Sennosides-Docusate Sodium (Stool Softener) 1 Tab Tab 3 TAB PO DAILY 1QAM 2HS Tramadol (Ultram) 50 Mg Tab 1 TAB PO BID PRN for Pain for 30 Days, #60 TAB Referrals At Discharge Follow up Referrals: Family Practice Referral - Within 1 Week with Hannah Marshall C.R.N.P Discharge Exam Patient reports feeling well now. She did have an episode of nausea and vomiting last night which resolved after receiving Zofran. She was able to eat some breakfast and has not had any issues since. She currently denies any chest pain or shortness of breath. She does report an intermittent cough that is sometimes productive with clear/white sputum. The patient denies fevers, chills, sweats, chest pain, palpitations, claudication, wheezing, shortness of breath, nausea, vomiting, abdominal pain, dysuria, hematuria, urinary retention , paralysis, weakness, numbness and tingling. Review of Systems: Constitutional: No chills, No fever, No sweats Eyes: No diplopia, No eye pain, No worsening of vision ENT: No hearing loss, No sore throat, No trouble swallowing Respiratory: + cough, + sputum, No shortness of breath, No wheezing Cardiovascular: No chest pain, No claudication, No palpitations Abdomen: + nausea (resolved), + vomiting (resolved), No pain Musculoskeletal: No joint pain, No muscle pain, No swelling Genitourinary - Female: No dysuria, No hematuria, No urinary retention Neurologic: No numbness/tingling, No paralysis, No weakness Integumentary: No color change, No itch, No rash Physical Exam: General Appearance: WD/WN, no apparent distress, + obese Eyes: normal inspection, PERRL, EOMI ENT: normal ENT inspection, hearing grossly normal, pharynx normal Neck: supple, no JVD, trachea midline Respiratory/Chest: lungs clear, normal breath sounds, no respiratory distress, + decreased breath sounds Cardiovascular: regular rate, rhythm, no gallop, no murmur Abdomen / GI: normal bowel sounds, soft, + tenderness (mild diffuse tenderness with more pronounced tenderness epigastric region) Extremities: normal inspection, no pedal edema, + calf tenderness (left) Neurologic/Psychiatric: alert, normal mood/affect, oriented x 3 Skin: normal color, warm/dry, no rash (Praveena Fairbanks ., PA-C) Hospital Course 71 y/o female with a history of recent pacemaker placement, COPD, HTN, and GERD with esophagitis admitted on 12/09/2016 because of acute bilateral PE with SOB and pleuritic CP and SOB over the past week. Bilateral PE and acute left DVT--likely secondary to recent pacemaker placement and the complications that followed; prolonged immobility -Admitted to telemetry. Stable, transferred to med/surg on 12/11 -Doppler US confirmed acute left DVT in posterior tibial vein -Heparin drip while in patient -Will start Pradaxa 150 mg PO BID for 3-6 months outpatient for treatment Complete heart block s/p pacemaker 11/12/16 - Complications on 11/15 with wire migration, ventricular puncture, tamponade, and hemothorax - she had chest tube placement - Site of previous chest tube continues to drain and was started on Augmentin 875 mg PO BID x 10 days by PCP for infection - Continue Augmentin as above. 7 days remaining in course - Bacitracin topical BID x 7 days - Amiodarone 200 mg PO qd COPD--stable -Continue Combivent inh QID GERD w/esophagitis -Continue Protonix 40 mg PO qd and Zantac 150 mg PO BID Code Status -Level I, FULL RESUSCITATION STATUS Total Time Spent: Greater than 30 minutes This includes examination of the patient, discharge planning, medication reconciliation, and communication with other providers. (Praveena Fairbanks ., PA-C) I agree with PA assessment and plan and have seen and examined pt myself Resting comfortably in bed Denies any shortness of breath, slight pain on inspiration On heparin drip, can DC on NOAC Will check with insurance (Hugo Dugan, [email or web address]) Discharge Instructions Please refer to the electronic Patient Visit Report (Discharge Instructions) for additional information. (Praveena Fairbanks ., YEYO-C) Additional Copies To Hannah Marshall C.R.N.P
[2016-12-12 15:28] VITALS: BP 107/73; PULSE 87; TEMP 36.9; O2SAT 94
[2016-12-12] MEDS ORDERED: NURSING VERBAL MED ORDER ONE ×2 (18:00)
[2016-12-12] MEDS: DABIGATRAN ELEXILATE 75 MG CAP PO SCH (19:30)
[2016-12-12] MEDS: ACETAMINOPHEN 325 MG TAB PO PRN (19:30)
[2016-12-12] MEDS: MoRPHine SULFATE 2 MG/ML CARP IV PRN (22:09)
[2016-12-12 23:01] VITALS: BP 95/62; PULSE 81; TEMP 36.9; O2SAT 92
[2016-12-13] MEDS ORDERED: DABIGATRAN ELEXILATE 75 MG CAP PO SCH
[2016-12-13] MEDS: BACITRACIN OINT 15 GM TUBE EXT SCH (07:23)
[2016-12-13] MEDS: CALCIUM 600MG + VIT D 400 IU TAB PO SCH (07:23)
[2016-12-13] MEDS: IPRATROPIUM BROMIDE/ALBUTEROL respimat INH INH SCH ×2 (07:23→12:00)
[2016-12-13] MEDS: DOCUSATE SODIUM/SENNA 50/8.6MG TAB PO SCH (07:24)
[2016-12-13] MEDS: CEROVITE ADV FORMULA TAB PO SCH (07:24)
[2016-12-13] MEDS: RANITIDINE HCL 150 MG TAB PO SCH (07:24)
[2016-12-13] MEDS: AMIODARONE 200 MG TAB PO SCH (07:24)
[2016-12-13] MEDS: PANTOprazole SOD 40 MG TAB PO SCH (07:24)
[2016-12-13] MEDS: CHECK FENTANYL PATCH PLACEMENT SCH (07:25)
[2016-12-13] MEDS: AMOXICILLIN/CLAVULANATE TAB 875 MG TAB PO SCH (07:25)
[2016-12-13] MEDS: DABIGATRAN ELEXILATE 75 MG CAP PO SCH (07:25)
[2016-12-13] MEDS: CHOLECALCIFEROL 1000 INTER.UNIT TAB PO SCH (07:26)
[2016-12-13] MEDS: TRAMADOL HCL 50 MG TAB PO PRN (07:31)
[2016-12-13 07:45] VITALS: BP 113/77; PULSE 85; TEMP 36.7; O2SAT 94
[2016-12-13] MEDS ORDERED: FENTANYL PATCH REMOVE & WASTE SCH (07:59)
[2016-12-13] MEDS ORDERED: TRAM-10 PO ×2 (10:09)
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
[2017-01-02] MEDS ORDERED: VLTG EXT (11:33)
== END 2016-12-13 14:25 | disposition home health service (06) | DRG 176 ==
LOC: ENRESERVDT → ENRESERVTM → C.EDB 19:33 → C.2T 12-10 01:46 → C.4E 12-11 16:32
PROVIDERS: ADMIT Internal Medicine; ATTEND Hospitalist
DX: I26.99 Other pulmonary embolism without acute cor pulmonale (principal); I44.2 Atrioventricular block, complete; I82.442 Acute embolism and thrombosis of left tibial vein; J94.2 Hemothorax; J45.909 Unspecified asthma, uncomplicated; K21.9 Gastro-esophageal reflux disease without esophagitis; I10 Essential (primary) hypertension; H35.30 Unspecified macular degeneration; M81.0 Age-related osteoporosis without current pathological fracture; Z96.659 Presence of unspecified artificial knee joint; Z95.0 Presence of cardiac pacemaker; R07.9 Chest pain, unspecified

== ENCOUNTER → 2016-12-09 | Outpatient (CLI) | payer OTHER ==
[~2016-12-09] MED LIST changes: +AMIO200T4 PO; +AMOX1TAB43 PO; +BCTO EXT; +CRD200 PO; +DABI150C PO; +HYDR-5688 PO; +VLTG EXT
--- NOTE | 2016-12-09 15:15 | DIAGNOSTIC IMAGING REPORT ---
TWO VIEW CHEST CLINICAL HISTORY: Atypical chest pain. FINDINGS: PA and lateral chest radiographs are compared to study dated 11/27/2016 and correlated with chest CT dated 11/23/2016. The PA view is degraded by patient rotation. A 2-lead cardiac pacemaker is unchanged in position and partially obscures the left upper chest. The heart is enlarged and there is atherosclerotic calcification of the thoracic aorta. The pulmonary vasculature is noncongested. Chronic interstitial thickening is unchanged. There is a small volume of pleural fluid the left lung base with bibasilar consolidation. Left perihilar airspace opacities are unchanged and likely represents fluid within the major fissure. The right lung appears clear. A small loculated pneumothorax is again suggested within the left major fissure as seen on the lateral view. The skeletal structures are osteopenic. The bony thorax is grossly intact. Degenerative change is seen throughout the thoracic spine IMPRESSION: 1. There is a small left pleural effusion with associated left basilar consolidation. A subtle represents atelectasis. Clinical correlation will be required. 2. Pleural fluid is again noted along the left major fissure. A small loculated pneumothorax is again suggested within the fissure on the lateral view. 3. Cardiomegaly and cardiac pacemaker. There is no radiographic evidence of congestive failure. 4. The right lung appears clear. Electronically signed by: Patricio Arzate M.D. 12/09/2016 3:14 PM Dictated Date/Time: 12/09/2016 3:12 PM
== END | disposition home or self-care (01) ==
LOC: C.RADPV 14:31
PROVIDERS: ATTEND Nurse Practitioner
DX: R07.9 Chest pain, unspecified (principal); J94.2 Hemothorax

== ENCOUNTER → 2016-12-20 | Outpatient (CLI) | payer OTHER ==
[~2016-12-20] MED LIST changes: +AMIO200T4 PO; +AMOX1TAB43 PO; +BCTO EXT; +DABI150C PO; +HYDR-5688 PO; +VLTG EXT
--- NOTE | 2016-12-20 11:31 | DIAGNOSTIC IMAGING REPORT ---
KUB CLINICAL HISTORY: Abdominal pain. COMPARISON STUDY: KUB November 18, [address] of the abdomen and pelvis November 16, 2016. FINDINGS: There are cholecystectomy clips and a previous proximal right femoral internal fixation. Bowel gas pattern is normal. Phleboliths within the pelvis are noted. Left basilar opacity is noted. Pacer leads are partially imaged. IMPRESSION: No evidence for a bowel obstruction. Electronically signed by: Doug Schuler M.D. 12/20/2016 11:29 AM Dictated Date/Time: 12/20/2016 11:28 AM
== END | disposition home or self-care (01) ==
LOC: C.RADPV 10:47
PROVIDERS: ATTEND Family Medicine
DX: R10.9 Unspecified abdominal pain (principal)

== ENCOUNTER → 2016-12-22 | Outpatient (CLI) | payer OTHER ==
--- NOTE | 2016-12-22 09:32 | DIAGNOSTIC IMAGING REPORT ---
CHEST 2 VIEWS ROUTINE HISTORY: Left-sided hemothorax. COMPARISON: Chest 12/09/2016. FINDINGS: Small left pleural effusion is not suitably change. Linear densities at the left lung base favor subsegmental atelectasis. This is also unchanged. The heart is stable in size. Left-sided dual-chamber pacemaker. No pneumothorax. IMPRESSION: No significant change in the small left effusion and left basilar densities suggesting subsegmental atelectasis. Electronically signed by: Reece Alaniz M.D. 12/22/2016 9:30 AM Dictated Date/Time: 12/22/2016 9:29 AM
== END | disposition home or self-care (01) ==
LOC: C.RAD1850 09:10
PROVIDERS: ATTEND Nurse Practitioner
DX: J94.2 Hemothorax (principal)

== ENCOUNTER → 2016-12-23 | Outpatient (CLI) | payer OTHER ==
--- NOTE | 2016-12-23 09:10 | DIAGNOSTIC IMAGING REPORT ---
ABDOMINAL ULTRASOUND, RIGHT UPPER QUADRANT HISTORY: Abdominal pain. COMPARISON: CT of the abdomen and pelvis November 16, 2016. FINDINGS: The liver is sonographically normal. There is no biliary ductal dilatation status post cholecystectomy. The pancreatic body is normal. The head and tail are slightly obscured by overlying bowel gas. There is no right hydronephrosis. Note is made of a 7 mm cyst within the midpole of the right kidney. IMPRESSION: No abnormality within the right upper quadrant status post cholecystectomy. Electronically signed by: Doug Schuler M.D. 12/23/2016 9:08 AM Dictated Date/Time: 12/23/2016 9:07 AM
== END | disposition home or self-care (01) ==
LOC: C.ULTR 08:34
PROVIDERS: ATTEND Family Medicine
DX: R10.9 Unspecified abdominal pain (principal); Z90.49 Acquired absence of other specified parts of digestive tract

== ENCOUNTER 2016-12-31 15:08 | Observation (INO) | payer OTHER ==
[~2016-12-31] VITALS: Ht 154.9 cm; Wt 75.7 kg
[~2016-12-31 15:08] MED LIST changes: -AMIO200T4 PO; -HYDR-5688 PO; -VLTG EXT
--- NOTE | 2016-12-31 15:57 | DIAGNOSTIC IMAGING REPORT ---
CHEST ONE VIEW PORTABLE CLINICAL HISTORY: Chest Pain dyspnea COMPARISON STUDY: 12/22/2016 FINDINGS: Slight improvement in aeration left base. Chronic linear and pleural-based scarring left mid and lower lung. No acute infiltrate. Bipolar cardiac pacemaker. IMPRESSION: Chronic change. No acute process. Electronically signed by: Johny Zee M.D. 12/31/2016 3:56 PM Dictated Date/Time: 12/31/2016 3:56 PM
[2016-12-31] MEDS ORDERED: AMIO200T4 PO (16:11)
[2016-12-31] MEDS ORDERED: DABI150C PO (16:12)
[2016-12-31 16:25] LABS: BASO % 0.7 %; BASO ABS # 0.05 K/uL (0-0.2); COMPLETE YES; EOS % 0.7 %; HEMATOCRIT 40.6 % (37-47); IG% 0.1 %; LYMPH % 11.5 %; LYMPH ABS # 0.78 K/uL (1.2-3.4); MEAN CELL VOLUME 88.3 fL (80-100); MEAN CORPUSCULAR HEMOGLOBIN 27.4 pg (25-34); MEAN PLATELET VOLUME 9.9 fL (7.4-10.4); MONO % 6.9 %; NEUT % 80.1 %; PLATELET COUNT 231 K/uL (130-400)
[2016-12-31 16:38] LABS: BLOOD UREA NITROGEN 10 mg/dl (7-18); BUN/CREATININE RATIO 12.3 (10-20); CALCIUM 8.4 mg/dl (8.5-10.1); CARBON DIOXIDE 27 mmol/L (21-32); CHLORIDE 111 mmol/L (98-107); GLUCOSE 105 mg/dl (70-99); POTASSIUM 3.9 mmol/L (3.5-5.1); SODIUM 145 mmol/L (136-145)
[2016-12-31 16:43] LABS: CKMB/CK RATIO 1.3 (0-3.0)
[2016-12-31] MEDS ORDERED: SODIUM CHLORIDE 0.9% 500ML 500 ML IV STA (18:14)
[2016-12-31] MEDS: ASPIRIN 81 MG CHEW PO STA ×2 (18:14→18:47)
[2016-12-31] MEDS ORDERED: NITROGLYCERIN 0.4 MG SL PER TAB CHARGE UT PRN (19:00)
[2016-12-31] MEDS ORDERED: NITROGLYCERIN 0.4 MG SL PER TAB CHARGE SL PRN (19:00)
[2016-12-31] MEDS ORDERED: MAGNESIUM HYDROXIDE SUSP 30 ML UDC PO PRN (19:00)
[2016-12-31] MEDS ORDERED: TRAMADOL HCL 50 MG TAB PO PRN (19:00)
[2016-12-31] MEDS ORDERED: ALUMINUM/MAGNESIUM/SIMETH (MAALOX MAX) 30 ML UDC PO PRN (19:00)
[2016-12-31] MEDS ORDERED: POLYETHYLENE (MIRALAX) 17 GM PACK PO PRN (19:00)
[2016-12-31] MEDS ORDERED: MECLIZINE HCL 12.5 MG TAB PO PRN (19:00)
[2016-12-31] MEDS ORDERED: ACETAMINOPHEN 325 MG TAB PO PRN (19:00)
[2016-12-31] MEDS ORDERED: ONDANSETRON INJ 2 MG/ML 2 ML VIAL IV PRN (19:00)
[2016-12-31 19:01] VITALS: BP 146/87; PULSE 69; TEMP 36.3; Ht 154.9 cm; Wt 75.7 kg
[2016-12-31] MEDS ORDERED: IV FLUIDS COMPLETED PRN (19:45)
--- NOTE | 2016-12-31 19:50 | EMERGENCY ROOM VISIT NOTE ---
History Report prepared by Meeibjackelin: Reza Lora Under the Supervision of: Dr. Jamin Hernandez D.O. First contact with patient: 15:26 Chief Complaint: OTHER COMPLAINT Stated Complaint: LIGHTHEADED,SHAKINESS,PAIN IN CHEST WHEN BREATHING History of Present Illness The patient is a 71 year old female who presents to the Emergency Room with complaints of constant lightheadedness beginning today. She also complains of shakiness, and chest pain with deep breathing and a chest tightness. Her lightheadedness is worsened with standing. The patient denies any spinning sensations. She notes that she felt like she was going to pass out earlier today , but didn't. Pt denies headache, change in vision, fevers, shortness of breath , arm pain, jaw pain, nausea, vomiting, diarrhea, pain with urination, and melena. She states that she currently has no chest pain/tightness but still has the pleuritic pain present. Her chest pain improved with resting. The patient was seen in the ED on November 12 and was found to have heart block. 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 She then had a hemothorax with a chest tube, and an ileus requiring an NG tube. The patient was also seen in the ED on December 10 and was found to have PE. She denies missing any doses of her blood thinners. She notes that her chest pain that she felt today felt very different than the pain she experienced with her blood clots. The patient's last normal bowel movement was earlier today. Source of History: patient Onset: Today Quality: other (lightheadedness) Timing: constant Modifying Factors (Worsening): other (standing) Associated Symptoms: + chest pain (with deep breathing), No SOB, No abdominal pain, No chills, No fevers Note: The patient also complains of shakiness. She denies any spinning sensations, arm pain or jaw pain. Review of Systems See HPI for pertinent positives & negatives. A total of 10 systems reviewed and were otherwise negative. 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 (12) Macular Degeneration Nos (13) Nasal bone fracture (14) Nasal bone fracture (15) Nausea (16) Osteoporosis Nos (17) Pulmonary emboli (18) Vertigo (19) Vertigo (20) Vertigo (21) Vertigo Surgical Problems: (1) Knee joint replacement status Social History Problems: (1) Osteoporosis Nos Family History Diabetes mellitus Hypertension Social History Smoking Status: Former Smoker Alcohol Use: none Drug Use: none Marital Status: Housing Status: lives alone Occupation Status: retired Current/Historical Medications Scheduled Amiodarone Hcl (Cordarone), 200 MG PO QAM Calcium/Vitamin D (Os-Lito 500 Plus D), 1 TAB PO BID Cholecalciferol (Vitamin D3), 1 TAB PO DAILY Dabigatran Etexilate Mesylate (Pradaxa), 150 MG PO BID Ipratropium-Albuterol (Combivent Respimat), 1 PUFFS INH QID Ocuvite Preservision (Ocuvite Preservision), 1 TAB PO BID Pantoprazole (Protonix), 40 MG PO DAILY Ranitidine (Zantac), 150 MG PO BID Sennosides-Docusate Sodium (Stool Softener), 3 TAB PO DAILY Scheduled PRN Meclizine Hcl (Meclizine Hcl), 25 MG PO TID PRN for DIZZY Nitroglycerin (Nitrostat), 0.4 MG UT PRN PRN for Heartburn Tramadol (Ultram), 50 MG PO BID PRN for Pain Allergies Coded Allergies: Aspirin (Verified Adverse Reaction, Mild, ABD. PAIN AND VOMITING, 12/09/16) Physical Exam Vital Signs Date Time Temp Pulse Resp B/P Pulse Ox O2 Delivery O2 Flow Rate FiO2 12/31/16 18:53 75 20 150/87 94 Room Air 12/31/16 17:00 73 20 130/90 96 Room Air 12/31/16 16:02 74 12/31/16 15:12 36.7 81 24 152/87 96 Room Air Physical Exam GENERAL: Sitting up in bed, disheveled, non-toxic, no acute distress. EYE EXAM: normal conjunctiva OROPHARYNX: no exudate, no erythema, lips, buccal mucosa, and tongue normal and mucous membranes are moist NECK: supple, no nuchal rigidity, no adenopathy, non-tender LUNGS: Clear to auscultation. Normal chest wall mechanics HEART: no murmurs, S1 normal and S2 normal ABDOMEN: abdomen soft, non-tender, normo-active bowel sounds, no masses, no rebound or guarding. BACK: Back is symmetrical on inspection and there is no deformity, no midline tenderness, no CVA tenderness. SKIN: no rashes and no bruising UPPER EXTREMITIES: upper extremities are grossly normal. LOWER EXTREMITIES: No pitting edema. NEURO EXAM: Normal sensorium, cranial nerves II-XII grossly intact, normal speech, no gross weakness of arms, no gross weakness of legs. Medical Decision & Procedures ER Provider Diagnostic Interpretation: Radiology results as stated below per my review and the radiologist's interpretation: CHEST ONE VIEW PORTABLE FINDINGS: Slight improvement in aeration left base. Chronic linear and pleural-based scarring left mid and lower lung. No acute infiltrate. Bipolar cardiac pacemaker. IMPRESSION: Chronic change. No acute process. Electronically signed by: Johny Zee M.D. Laboratory Results 12/31/16 16:13 Red Blood Count 4.60, Mean Corpuscular Volume 88.3, Mean Corpuscular Hemoglobin 27.4, Mean Corpuscular Hemoglobin Concent 31.0, Mean Platelet Volume 9.9, Neutrophils (%) (Auto) 80.1, Lymphocytes (%) (Auto) 11.5, Monocytes (%) (Auto) 6.9, Eosinophils (%) (Auto) 0.7, Basophils (%) (Auto) 0.7, Neutrophils # (Auto) 5.44, Lymphocytes # (Auto) 0.78, Monocytes # (Auto) 0.47, Eosinophils # (Auto) 0.05, Basophils # (Auto) 0.05 12/31/16 16:13 Test 12/31/16 16:13 White Blood Count 6.80 K/uL (4.8-10.8) Red Blood Count 4.60 M/uL (4.2-5.4) Hemoglobin 12.6 g/dL (12.0-16.0) Hematocrit 40.6 % (37-47) Mean Corpuscular Volume 88.3 fL (80-100) Mean Corpuscular Hemoglobin 27.4 pg (25-34) Mean Corpuscular Hemoglobin Concent 31.0 g/dl (32-36) Platelet Count 231 K/uL (130-400) Mean Platelet Volume 9.9 fL (7.4-10.4) Neutrophils (%) (Auto) 80.1 % Lymphocytes (%) (Auto) 11.5 % Monocytes (%) (Auto) 6.9 % Eosinophils (%) (Auto) 0.7 % Basophils (%) (Auto) 0.7 % Neutrophils # (Auto) 5.44 K/uL (1.4-6.5) Lymphocytes # (Auto) 0.78 K/uL (1.2-3.4) Monocytes # (Auto) 0.47 K/uL (0.11-0.59) Eosinophils # (Auto) 0.05 K/uL (0-0.5) Basophils # (Auto) 0.05 K/uL (0-0.2) RDW Standard Deviation 50.4 fL (36.4-46.3) RDW Coefficient of Variation 15.6 % (11.5-14.5) Immature Granulocyte % (Auto) 0.1 % Immature Granulocyte # (Auto) 0.01 K/uL (0.00-0.02) Anion Gap 7.0 mmol/L (3-11) Est Creatinine Clear Calc Drug Dose 61.8 ml/min Estimated GFR () 86.6 Estimated GFR (Non- 74.7 BUN/Creatinine Ratio 12.3 (10-20) Calcium Level 8.4 mg/dl (8.5-10.1) Total Creatine Kinase 56 U/L (26-192) Creatine Kinase MB 0.7 ng/ml (0.5-3.6) Creatine Kinase MB Ratio 1.3 (0-3.0) Troponin I < 0.015 ng/ml (0-0.045) Laboratory results per my review. Medications Administered Medications (Trade) Dose Ordered Sig/Barb Route Start Time Stop Time Status Last Admin Dose Admin Sodium Chloride (Nss 500ml) 500 ml @ 999 mls/hr Q31M STAT IV 12/31/16 18:14 12/31/16 18:44 DC 12/31/16 18:14 999 MLS/HR ECG Indication: chest pain (with deep breathing), other (lightheadedness) Rate (beats per minute): 94 Rhythm: other (atrial paced) Findings: other (RAD. RBBB. ) Comparison ECG Date: 12/09/2016 Change: Pacing now present. ED Course ED COURSE: Vital signs were reviewed and appeared normal. The patients medical record was reviewed The above diagnostic studies were performed and reviewed. ED treatments and interventions as stated above. 1530: The patient was evaluated in room A3. A complete history and physical examination was performed. 180: Upon reevaluation, the patient is resting comfortably. I discussed my findings with the patient and she understands and agrees with the treatment plan. Based on the patients age, coexisting illnesses, exam and lab findings the decision to treat as an inpatient was made. The patient remained stable while under my care. The patient will be evaluated for further management. 1813: Ordered Sodium Chloride 500 ml @ 999 mls/hr IV, Aspirin 324 mg PO. Medical Decision Differential diagnoses includes but is not limited to acute coronary syndrome, myocardial infarction, pericarditis, pulmonary embolus, aortic dissection, pneumonia, pneumothorax, musculoskeletal, shingles, esophageal. Patient is a 71-year-old female who presents the ER for chest pain which she describes as a pressure which started at 11 AM associated with a pleuritic chest pain which comes and goes with breathing. She has a history complicated by recent heart block, with a pacemaker placed which caused a rupture of the right ventricle, tamponade, hemothorax with chest tube and ileus with an NG tube. Patient has not missed any doses of her Xa inhibitor which she was placed on for her revisit where she was found to have PEs. Chest x-ray was unremarkable. D-dimer was negative. EKG was unchanged. Troponin was negative. Per review of her chart she does have a history of CAD. I did not pursue worsening PE as she has not missed any doses of her blood thinner. I did question whether this could be cardiac in nature. She was given a dose aspirin. She was admitted to internal medicine chest pain-free. Consults Time Called: 1620 Consulting Physician: [employer] Returned Call: 1625 [employer] states that the patient is paced 8% of the time and has had no arrhythmias since December 19. Additional Consults: Time Called: 180 Consulted Physician: Dr. Henderson -[facility] [place] Returned Call: [phone] Additional Comments: I reviewed the patient's case with Dr. Henderson. He will evaluate the patient for further management. Impression Primary Impression: Precordial chest pain Additional Impressions: Pleuritic chest pain Dizziness Scribe Attestation The scribe's documentation has been prepared under my direction and personally reviewed by me in its entirety. I confirm that the note above accurately reflects all work, treatment, procedures, and medical decision making performed by me. Departure Information Dispostion Being Evaluated By Hospitalist Referrals Hannah Marshall C.R.N.P (PCP) Patient Instructions My [facility] Problem Qualifiers
[2016-12-31 20:05] LABS: INR 1.1 (0.9-1.1); PROTHROMBIN TIME (PATIENT) 12.1 SECONDS (9.0-12.0)
--- NOTE | 2016-12-31 20:09 | History and Physical ---
History & Physical Date & Time of Service: December 31, 2016 at 20:01 Chief Complaint: Lightheaded,Shakiness,Pain In Chest When Breathing Primary Care Physician: Hannah Marshall C.R.NTeodoro Past Medical/Surgical History Medical Problems: (1) Asthma, Unspecified Status: Chronic (2) Dehydration Status: Resolved (3) Esophageal Reflux Status: Chronic (4) Hypertension Nos Status: Chronic (5) Loss of consciousness Status: Resolved (6) Loss of consciousness Status: Resolved (7) Lumb/Lumbosac Disc Degen Status: Chronic (8) Macular Degeneration Nos Status: Chronic (9) Nasal bone fracture Status: Resolved (10) Nasal bone fracture Status: Resolved (11) Nausea Status: Resolved (12) Osteoporosis Nos Status: Chronic (13) Vertigo Status: Chronic (14) Vertigo Status: Resolved (15) Vertigo Status: Resolved (16) Vertigo Status: Resolved Surgical Problems: (1) Knee joint replacement status Status: Resolved Family History Diabetes mellitus Hypertension Social History Smoking Status: Former Smoker Drug Use: none Marital Status: Housing status: lives alone Occupational Status: retired Immunizations History of Influenza Vaccine: Yes Influenza Vaccine Date: Jun 23, 2008 History of Tetanus Vaccine?: Yes History of Pneumococcal: Yes History of Hepatitis B Vaccine: No Multi-Drug Resistant Organisms History of MDRO: No Allergies Coded Allergies: Aspirin (Verified Adverse Reaction, Mild, ABD. PAIN AND VOMITING, 12/09/16) Home Medications Scheduled Amiodarone Hcl (Cordarone), 200 MG PO QAM Calcium/Vitamin D (Os-Lito 500 Plus D), 1 TAB PO BID Cholecalciferol (Vitamin D3), 1 TAB PO DAILY Dabigatran Etexilate Mesylate (Pradaxa), 150 MG PO BID Ipratropium-Albuterol (Combivent Respimat), 1 PUFFS INH QID Ocuvite Preservision (Ocuvite Preservision), 1 TAB PO BID Pantoprazole (Protonix), 40 MG PO DAILY Ranitidine (Zantac), 150 MG PO BID Sennosides-Docusate Sodium (Stool Softener), 3 TAB PO DAILY Scheduled PRN Meclizine Hcl (Meclizine Hcl), 25 MG PO TID PRN for DIZZY Nitroglycerin (Nitrostat), 0.4 MG UT PRN PRN for Heartburn Tramadol (Ultram), 50 MG PO BID PRN for Pain Physical Exam Vital Signs Date Time Temp Pulse Resp B/P Pulse Ox O2 Delivery O2 Flow Rate FiO2 12/31/16 19:50 69 18 163/89 96 Room Air 12/31/16 19:01 Room Air 12/31/16 18:53 75 20 150/87 94 Room Air 12/31/16 17:00 73 20 130/90 96 Room Air 12/31/16 16:02 74 12/31/16 15:12 36.7 81 24 152/87 96 Room Air Diagnostics Laboratory Results Results Past 24 Hours Test 12/31/16 16:13 12/31/16 19:45 Range/Units White Blood Count 6.80 4.8-10.8 K/uL Red Blood Count 4.60 4.2-5.4 M/uL Hemoglobin 12.6 12.0-16.0 g/dL Hematocrit 40.6 37-47 % Mean Corpuscular Volume 88.3 80-100 fL Mean Corpuscular Hemoglobin 27.4 25-34 pg Mean Corpuscular Hemoglobin Concent 31.0 32-36 g/dl Platelet Count 231 130-400 K/uL Mean Platelet Volume 9.9 7.4-10.4 fL Neutrophils (%) (Auto) 80.1 % Lymphocytes (%) (Auto) 11.5 % Monocytes (%) (Auto) 6.9 % Eosinophils (%) (Auto) 0.7 % Basophils (%) (Auto) 0.7 % Neutrophils # (Auto) 5.44 1.4-6.5 K/uL Lymphocytes # (Auto) 0.78 1.2-3.4 K/uL Monocytes # (Auto) 0.47 0.11-0.59 K/uL Eosinophils # (Auto) 0.05 0-0.5 K/uL Basophils # (Auto) 0.05 0-0.2 K/uL RDW Standard Deviation 50.4 36.4-46.3 fL RDW Coefficient of Variation 15.6 11.5-14.5 % Immature Granulocyte % (Auto) 0.1 % Immature Granulocyte # (Auto) 0.01 0.00-0.02 K/uL Sodium Level 145 136-145 mmol/L Potassium Level 3.9 3.5-5.1 mmol/L Chloride Level 111 98-107 mmol/L Carbon Dioxide Level 27 21-32 mmol/L Anion Gap 7.0 3-11 mmol/L Blood Urea Nitrogen 10 7-18 mg/dl Creatinine 0.80 0.60-1.20 mg/dl Est Creatinine Clear Calc Drug Dose 61.8 ml/min Estimated GFR () 86.6 Estimated GFR (Non- 74.7 BUN/Creatinine Ratio 12.3 10-20 Random Glucose 105 70-99 mg/dl Calcium Level 8.4 8.5-10.1 mg/dl Total Creatine Kinase 56 26-192 U/L Creatine Kinase MB 0.7 0.5-3.6 ng/ml Creatine Kinase MB Ratio 1.3 0-3.0 Troponin I < 0.015 0-0.045 ng/ml Impression Assessment and Plan obs #[id number] Advanced Directives Existing Living Will: No Existing Power of Manager Asset: No VTE Prophylaxis VTE Risk Assessment Done? Y/N: Yes Risk Level: Moderate Given or contraindicated: Unfractionated heparin SQ
[2016-12-31] MEDS ORDERED: DICLOFENAC SOD 1% GEL 100 GM TUBE EXT ONE (21:00)
[2016-12-31] MEDS ORDERED: ASPIRIN 81 MG ECTAB PO ONE (21:00)
[2016-12-31] MEDS ORDERED: RANITIDINE HCL 150 MG TAB PO ONE (21:00)
[2016-12-31] MEDS: CEROVITE ADV FORMULA TAB PO SCH (21:05)
[2016-12-31] MEDS: IPRATROPIUM BROMIDE/ALBUTEROL respimat INH INH SCH (21:06)
[2016-12-31] MEDS: DABIGATRAN ELEXILATE 75 MG CAP PO SCH (21:06)
[2016-12-31] MEDS: CALCIUM 600MG + VIT D 400 IU TAB PO SCH (21:11)
[2017-01-01] VITALS (9 sets, daily range): BP systolic 110–129; BP diastolic 53–77; PULSE 70–87; TEMP 36.6–37.1; O2SAT 92–95
--- NOTE | 2017-01-01 07:30 | HISTORY & PHYSICAL EXAMINATION ---
DATE OF ADMISSION: 12/31/2016 CHIEF COMPLAINT: Chest pain and lightheadedness. HISTORY OF PRESENT ILLNESS: The patient is a very pleasant 71-year-old female accompanied by her family. She has recently had a rather long and arduous journey of medical problems including complete heart block, pacemaker, perforation of her right ventricle pericardiocentesis and drain thoracentesis and chest tube and then finally she has been home. She has been recovering. She was actually sitting in her chair this morning when she noticed this spontaneous onset of chest tightness. She noted it felt like her bra or her shirt were on too tight, but she knew that could not be the case because they had been on for a while and it came on at rest. It did make her feel short of breath, although she describes it more as feeling like she has to take a deep breath to get through it and she also more vaguely describes a more left lateral chest pain that seems to be more intense. She can quiet put a quality to it and the tightness was sort of substernal or left side of substernal. She then got up to walk over to the kitchen and felt very lightheaded, not spinning, not unsteady, but just very lightheaded like she was going to pass out. She steadied herself on a heavy piece of furniture, sat down again and the lightheadedness went away and has not been back since. The chest pain, however, persisted for hours and finally went away probably here in the ER, but she does not recall it going away for any specific reason. It did not go away with rest. It did not go away with any medications. It was just with spontaneous onset, spontaneous resolution. REVIEW OF SYSTEMS: Otherwise negative, except for as above. PAST MEDICAL HISTORY: Includes complete heart block, is now status post pacer, cardiac tamponade due to RV puncture, hemothorax again related to the post-pacer complications has all been treated, asthma, GERD, hypertension, low back degenerative disc disease, macular degeneration, osteoporosis and vertigo. PAST SURGICAL HISTORY: Includes the pericardiocentesis and drain, the chest tube, the pacer placement and a knee replacement. FAMILY HISTORY: Includes diabetes, hypertension. SOCIAL HISTORY: She is not a smoker. She is . She is retired. She lives at home. ALLERGIES: ASPIRIN IS LISTED AN ALLERGY, BUT REALLY IT JUST UPSETS HER STOMACH. HOME MEDICATIONS: Amiodarone 200 mg daily, Os-Lito plus D b.i.d. 500 mg, vitamin D3 uncertain dose daily, Pradaxa 150 mg b.i.d., Combivent one puff q.i.d., meclizine 25 mg t.i.d. p.r.n. dizziness, nitroglycerin 0.4 under the tongue p.r.n. chest pain, Ocuvite 1 tab b.i.d., Protonix 40 mg daily, Zantac 150 mg b.i.d., stool softener 3 tabs daily, tramadol 50 mg b.i.d. p.r.n. pain. PHYSICAL EXAMINATION: VITAL SIGNS: Temp 36.7, pulse 81, respiratory rate 24, blood pressure 152/87, 96% on room air. GENERAL: She is awake, alert, oriented x3, pleasant, in no acute distress. HEENT: Normocephalic, atraumatic. Mucous membranes are moist. CARDIOVASCULAR: Regular without rubs, murmurs, or gallops. She shows no JVD. No orthopnea. LUNGS: Clear to auscultation bilaterally. No rales, rhonchi, or wheezes with good effort. ABDOMEN: Soft, nondistended, nontender, no masses or organomegaly. EXTREMITIES: Without cyanosis, clubbing or edema. No calf tenderness. SKIN: Shows no rashes. No pallor or icterus. NEUROLOGIC: Shows cranial nerves II-XII to be grossly intact. Gross motor and sensory are intact. MUSCULOSKELETAL: Shows her left-sided ribs to be tender to palpation and palpation particularly down in the area of ribs about 8 through 10 reproduces the more lateral chest pain that she was feeling. Almost completely, the ribs are more stuck in exhalation than the right and generally quite tender. I attempted muscle energy to correct this somatic dysfunction, but she was not able to handle shoulder rotation with this. So instead I utilize balanced ligamentous tension and rib dysfunction did correct some, soft tissue changes was effective and the patient tolerated it well. LABS AND DIAGNOSTICS: CBC with a white count of 6.8, hemoglobin 12.6, platelets 231. Basic metabolic panel with sodium 145, potassium 3.9, chloride 111, CO2 27, BUN 10, creatinine 0.8, calcium 8.4, glucose 105. CK total of 56 with an MB of 0.7, troponin of less than 0.015. Her most recent vitamin D was 33.8 in the fall. PT/INR is pending. IMAGING: Chest x-ray showed slight improvement in aeration of the left lung base compared to December 22, chronically near pleural based scarring mid left and lower lung, no acute infiltrate. She has got a pacemaker in place. EKG appeared to be atrial paced. There was not anything inconsistent between beats such as electrical alternans. ASSESSMENT AND PLAN: 1. Chest pain and lightheadedness. Certainly with her recent history of cardiac issues such as, tamponade or pericardial sac fibrosis or stricturing would be of most cardinal concern, what is reassuring there is that her blood pressure she notes at home was actually about 160/75 whenever she was having these symptoms and the symptoms seemed to have spontaneously resolve. She shows no hypotension and no signs and symptoms of congestive heart failure. However, certainly given her recent history, we will check an echocardiogram and ask cardiology to see her for assistance on ensuring that there is a anything pericardial going on. Also certainly of concern with her risk factors would be incidental unstable angina, given that this does not appear that she had a myocardial infarction or ischemic cardiac situation during all of her significant physiologic and metabolic stress during her prior admissions, it is highly unlikely, but not impossible. Therefore, we will check serial troponins, the echocardiogram as above to look for wall motion abnormalities and then again the cardiology input in regards to possible utility of outpatient stress testing. Certainly also with the lightheadedness and given everything she has been through while she does not appear dry, we will check orthostatic blood pressures to ensure she is not tilting however, reassuring given her rib somatic dysfunction and reproducible tenderness, it is also quite possible that a lot of her chest tightness was due to intercostal spasm and the pain due to the more peripheral rib dysfunction and the shortness of breath simply due to trying to inhale against intercostal spasm and given the overall benign objective workup, this seems to be possibly the most likely diagnosis. Certainly , if all things in cardiac are negative, this would be the most likely. Also, certainly pulmonary embolus was entertained; however, she is not tachycardic, not hypoxic and notes that she is very consistent in taking her Pradaxa so this seems highly unlikely as well. 2. Asthma. This appears to be controlled. We will follow, but she is showing no wheezing. 3. Hypertension. She is actually mildly hypertensive; however continue her home medications and follow at this point given the above. 4. Gastroesophageal reflux disease. Continue her H2 zeke. We will give her aspirin at least until she is ruled out from a cardiac standpoint as long as we give her medicine for stomach she consents to this and then if her cardiac enzymes are negative and nothing appears anginal after further workup would discontinue the aspirin at discharge. 5. Osteoporosis. Continue her calcium and vitamin D. Also check a vitamin D, given that she was borderline in the fall, she has been through quite a bit medically, appears to have a degree of musculo/myofascial pain as her main diagnosis with rib muscle spasm and the pain management literature would suggest that the deficiency accentuated myofascial pain. 6. Deep venous thrombosis prophylaxis, heparin subQ. 7. Disposition: [facility]. 8. Rib somatic dysfunction, osteopathic manipulative treatment was done as above.
--- NOTE | 2017-01-01 09:00 | Cardiology Consultation ---
Cardiology Consultation Date of Consultation: January 01, 2017. Requesting Physician: Dr. Henderson Reason for Consultation: Chest pain, lightheadedness History of Present Illness This is a 71-year-old woman who presented with complete heart block with a background history of syncope and underwent dual-chamber pacemaker implantation in November 16, 2016. This was complicated with right ventricular perforation and cardiac tamponade. She had drainage of the pericardial effusion and developed a left hemothorax requiring chest tube placement. She had recovered reasonably well from this hospitalization, being discharged on 12/13/2016. On 12/10/2016 she came into the emergency room and was noted to have pulmonary emboli. She has been anticoagulated with Pradaxa since and has not missed any of her doses. She also has atrial fibrillation, this was identified during her hospitalization for her pacemaker as well as brief episodes on pacemaker monitoring and she is therefore on amiodarone. She presented on 12/31/2016 with onset of chest discomfort. She felt as though her shirt was too tight, but that was not the case. It may have occurred at rest although she also mentions that she was shopping, but clearly it was not exertional but continuous for 2-3 hours, possibly resolving before she came to the emergency room. She was not short of breath. She felt very lightheaded when she got up to walk and felt as though she might pass out. At that time she felt that her heart was "beating out of her chest" and she asked she took her blood pressure and notes that it was 160 systolic, she is not sure of the other numbers but thinks that her heart rate was 109 although she can't be positive. Her pacemaker was evaluated in the emergency room however I do not see documentation of that, that may not be on the chart as yet. She was admitted for observation. Since admission she has been feeling well, she has no complaints this morning. No shortness of breath, palpitations or chest discomfort. Past Medical/Surgical History (1) Diverticulosis (2) Complete heart block (3) Loss of consciousness Family History Diabetes mellitus Hypertension Social History Smoking Status: Former Smoker History of Alcohol Use: No Review of Systems Constitutional: No fever, No weakness, No weight loss Cardiac: + chest pain, + problem reported (lightheadedness with presyncope), No PND, No edema, No orthopnea, No palpitations Abdomen: No GI bleeding, No diarrhea, No nausea, No pain, No vomiting Female : No problem reported Neurologic: No balance problems, No numbness/tingling, No paralysis, No weakness Heme: No abnormal bleeding/bruising, No clotting problems Endo: No fatigue Skin: No problem reported All Other Systems: Reviewed and Negative Allergies Coded Allergies: Aspirin (Verified Adverse Reaction, Mild, ABD. PAIN AND VOMITING, 12/09/16) Medications Current Inpatient Medications Medications (Trade) Dose Ordered Sig/Barb Route Start Time Stop Time Status Last Admin Dose Admin Acetaminophen (Tylenol Tab) 650 mg Q4H PRN PO 12/31/16 19:00 01/30/17 18:59 Al Hydrox/Mg Hydrox/Simethicone (Maalox Max Susp) 15 ml Q4H PRN PO 12/31/16 19:00 01/30/17 18:59 Magnesium Hydroxide (Milk Of Magnesia Susp) 30 ml Q12H PRN PO 12/31/16 19:00 01/30/17 18:59 Ondansetron HCl (Zofran Inj) 4 mg Q6H PRN IV 12/31/16 19:00 01/30/17 18:59 Nitroglycerin (Nitrostat Tab) 0.4 mg UD PRN SL 12/31/16 19:00 01/30/17 18:59 Aspirin (Ecotrin Tab) 81 mg QAM PO 01/01/17 09:00 01/31/17 08:59 Polyethylene (Miralax Powder Packet) 17 gm DAILY PRN PO 12/31/16 19:00 01/30/17 18:59 Amiodarone HCl (Cordarone Tab) 200 mg QAM PO 01/01/17 09:00 01/31/17 08:59 Calcium/Vitamin D (Caltrate Plus Tab) 1 tab BID PO 12/31/16 21:00 01/30/17 20:59 12/31/16 21:11 1 TAB Dabigatran (Pradaxa Cap) 150 mg BID PO 12/31/16 21:00 01/30/17 20:59 12/31/16 21:06 150 MG Albuterol/ Ipratropium (Combivent Respimat Inh) 1 puffs QID INH 12/31/16 21:00 01/30/17 20:59 12/31/16 21:06 1 PUFFS Meclizine HCl (Antivert Tab) 25 mg TID PRN PO 12/31/16 19:00 01/30/17 18:59 Nitroglycerin (Nitrostat Tab) 0.4 mg PRN PRN UT 12/31/16 19:00 01/30/17 18:59 Multivitamins/ Minerals (Multivitamin W/ Minerals Tab) 1 tab BID PO 12/31/16 21:00 01/30/17 20:59 12/31/16 21:05 1 TAB Pantoprazole Sodium (Protonix Tab) 40 mg DAILY PO 01/01/17 09:00 01/31/17 08:59 Ranitidine HCl (zANTac TAB) 150 mg BID PO 01/01/17 09:00 01/31/17 08:59 Senna/Docusate Sodium (Senokot S Tab) 3 tab DAILY PO 01/01/17 09:00 01/31/17 08:59 Tramadol HCl (Ultram Tab) 50 mg BID PRN PO 12/31/16 19:00 01/30/17 18:59 Cholecalciferol (Vitamin D Tab) 1,000 inter.unit DAILY PO 01/01/17 09:00 01/31/17 08:59 Diclofenac Sodium (Voltaren 1% Top Gel) 1 appln QID EXT 01/01/17 09:00 01/31/17 08:59 Miscellaneous (Iv Fluids Completed) 1 ea PRN PRN N/A 12/31/16 19:45 12/31/17 19:44 Physical Exam Vital Signs Past 12 Hours Date Time Temp Pulse Resp B/P Pulse Ox O2 Delivery O2 Flow Rate FiO2 01/01/17 04:17 37.1 76 19 111/62 92 Room Air 01/01/17 04:00 Room Air 01/01/17 00:38 37.0 71 17 112/53 95 Room Air 01/01/17 00:00 Room Air 12/31/16 22:00 Room Air Constitutional: General Apperance: heathly-appearing Level of Distress: NAD Psychiatric: Mental Status: active & alert Head: normocephalic Eyes: EOM: EOMI ENMT: normal ENT inspection, hearing grossly normal Neck: supple, no masses Lungs: Respiratory effort: no dyspnea, good air movement Auscultation: breath sounds normal, no wheezing Cardiovascular: Heart Auscultation: RRR, no murmurs, no rubs, no gallops Peripheral Pulses: Bruits: none appreciated Abdomen: Bowel Sounds: normal Inspection & Palpation: soft, no tenderness, guarding & rebound, no masses Musculoskeletal: normal strength (5/5 throughout) Extremities: no edema Neurologic: Cranial Nerves: grossly intact Sensation: grossly intact Data Laboratory Results: Last 24 Hours Test 12/31/16 16:13 12/31/16 19:45 01/01/17 00:49 01/01/17 04:44 White Blood Count 6.80 K/uL Red Blood Count 4.60 M/uL Hemoglobin 12.6 g/dL Hematocrit 40.6 % Mean Corpuscular Volume 88.3 fL Mean Corpuscular Hemoglobin 27.4 pg Mean Corpuscular Hemoglobin Concent 31.0 g/dl Platelet Count 231 K/uL Mean Platelet Volume 9.9 fL Neutrophils (%) (Auto) 80.1 % Lymphocytes (%) (Auto) 11.5 % Monocytes (%) (Auto) 6.9 % Eosinophils (%) (Auto) 0.7 % Basophils (%) (Auto) 0.7 % Neutrophils # (Auto) 5.44 K/uL Lymphocytes # (Auto) 0.78 K/uL Monocytes # (Auto) 0.47 K/uL Eosinophils # (Auto) 0.05 K/uL Basophils # (Auto) 0.05 K/uL RDW Standard Deviation 50.4 fL RDW Coefficient of Variation 15.6 % Immature Granulocyte % (Auto) 0.1 % Immature Granulocyte # (Auto) 0.01 K/uL Sodium Level 145 mmol/L Potassium Level 3.9 mmol/L Chloride Level 111 mmol/L Carbon Dioxide Level 27 mmol/L Anion Gap 7.0 mmol/L Blood Urea Nitrogen 10 mg/dl Creatinine 0.80 mg/dl Est Creatinine Clear Calc Drug Dose 61.8 ml/min Estimated GFR () 86.6 Estimated GFR (Non- 74.7 BUN/Creatinine Ratio 12.3 Random Glucose 105 mg/dl Calcium Level 8.4 mg/dl Total Creatine Kinase 56 U/L Creatine Kinase MB 0.7 ng/ml Creatine Kinase MB Ratio 1.3 Troponin I < 0.015 ng/ml < 0.015 ng/ml Prothrombin Time 12.1 SECONDS Prothromb Time International Ratio 1.1 Imaging: Echocardiography was done this morning, on preliminary review there is no effusion and no significant abnormality. Final report is pending. EKG: In the emergency room her electrocardiogram shows atrial pacing with a heart rate of 94 bpm, bifascicular block conduction pattern. Telemetry reviewed: Atrial pacing with a controlled heart rate Assessment & Plan #1. Chest discomfort: The cause of this is unclear. To my knowledge she does not have coronary artery disease and her troponins have been negative. Her electric cardiac does not show acute change. I suspect this was noncardiac but I can't be sure of the mechanism. It is not likely to be pulmonary embolism since she has been properly anticoagulated with Pradaxa and there were no other symptoms (such as shortness of breath). I would continue to observe. Perhaps we should consider stress testing but I would not do that today. #2. Presyncope: She describes lightheadedness to the point where she felt as though she was going to pass out, she also describes a rapid heart rate although her blood pressure and heart rate do not support a hemodynamically compromising heart rate. It is possible that that blood pressure and heart rate was not taken during the acute episode although she feels it was. Pacemaker interrogation is not available at this time but will be reviewed. It is possible she had some type of tachycardia arrhythmia, the pacemaker should have picked that up. On telemetry she has not. #3. Palpitations: As noted above it is possible she had some type of tachycardia arrhythmia, we will review her pacemaker interrogation which should have picked that up. On admission however her heart rate was 94 pacing, perhaps her rate response is set to high. We will review this and may need to adjust her pacemaker settings. #4. Pacemaker: Interrogated in the emergency room, I will locate the information. Thank you for allowing me to participate in her care.
[2017-01-01] MEDS: DOCUSATE SODIUM/SENNA 50/8.6MG TAB PO SCH (09:08)
[2017-01-01] MEDS: DABIGATRAN ELEXILATE 75 MG CAP PO SCH ×2 (09:08→21:09)
[2017-01-01] MEDS: CEROVITE ADV FORMULA TAB PO SCH ×2 (09:09→21:09)
[2017-01-01] MEDS: CALCIUM 600MG + VIT D 400 IU TAB PO SCH ×2 (09:09→21:11)
[2017-01-01] MEDS: CHOLECALCIFEROL 1000 INTER.UNIT TAB PO SCH (09:09)
[2017-01-01] MEDS: IPRATROPIUM BROMIDE/ALBUTEROL respimat INH INH SCH ×4 (09:10→21:10)
[2017-01-01] MEDS: DICLOFENAC SOD 1% GEL 100 GM TUBE EXT SCH ×4 (09:11→21:10)
[2017-01-01] MEDS: AMIODARONE 200 MG TAB PO SCH (09:12)
[2017-01-01] MEDS: RANITIDINE HCL 150 MG TAB PO SCH ×2 (09:13→21:09)
[2017-01-01] MEDS: PANTOprazole SOD 40 MG TAB PO SCH (09:13)
[2017-01-01] MEDS: ASPIRIN 81 MG ECTAB PO SCH (09:23)
--- NOTE | 2017-01-01 11:40 | ECHOCARDIOGRAM REPORT ---
*NOTICE TO RECEIVING REPUBLICAN AGENCY This information is strictly Confidential and protected under [place] law. [place] law prohibits you from making any further disclosure of this information unless further disclosure is expressly permitted by the written consent of the person to whom it pertains or is authorized by law. A general authorization for the release of medical or other information is not sufficient for this purpose. Hospital accepts no responsibility if the information is made available to any other person, INCLUDING THE PATIENT. Interpretation Summary * Name: MOR BARRIGA Study Date: 01/01/2017 08:13 AM BP: 111/62 mmHg * Patient Location: C.2E\S\E203\S\1 HR: 79 * : 1945 (M/d/yyyy) Gender: Female Height: 61 in * Age: 71 yrs Ethnicity: CA Weight: 171 lb * Ordering Physician: Jamin Henderson * Referring Physician: Self, Referred * Performed By: Janelle Davila [facility] * * Reason For Study: EVAL FOR EFFUSION / PERICARDIAL THICKENING * BSA: 1.8 m2 * -- Conclusions -- * 1. Normal LV size. Mild concentric LVH. * 2. Normal LV systolic function. LVEF 55-60%. Abnormal septal motion consistent with conduction abnormality. Grade I diastolic dysfunction. * 3. Normal RV size and function. * 4. No significant valvular pathology. * 5. Possible small, localized anterior pericardial effusion. * 6. Normal estimated RA and PA pressures. * 7. Compared with prior study on 11/26/2016: Possible effusion unchanged to improved. Procedure Details * A complete two-dimensional transthoracic echocardiogram was performed (2D, M-mode, Doppler and color flow Doppler). Left Ventricle * The left ventricle is grossly normal size. * There is mild concentric left ventricular hypertrophy. * Ejection Fraction = 55-60%. * Septal motion is consistent with conduction abnormality. Right Ventricle * The right ventricle is grossly normal size. * There is a pacemaker lead in the right ventricle. * The right ventricular systolic function is normal. Atria * Borderline left atrial enlargement. * Right atrial size is normal. * No ASD detected; PFO is not assessed. Mitral Valve * The mitral valve is grossly normal. * There is no mitral valve stenosis. * There is trace mitral regurgitation. Tricuspid Valve * The tricuspid valve is not well visualized, but is grossly normal. * There is no tricuspid stenosis. * There is trace tricuspid regurgitation. Aortic Valve * The aortic valve opens well. * The aortic valve is trileaflet. * No hemodynamically significant valvular aortic stenosis. * There is no significant aortic regurgitation. Pulmonic Valve * The pulmonary valve is inadequately visualized, but the Doppler data is adequate for interpretation. * Pulmonic stenosis is absent. * There is no significant pulmonary regurgitation. Great Vessels * The aortic root and proximal ascending aorta are normal sized. * No Doppler or imaging evidence of an aortic coarctation. Pericardium/Pleural * Trivial pericardial effusion * There is no pleural effusion. Great Vessels * There is no evidence of pulmonary hypertension. The PA systolic pressure is less than 36 mmHg. * Normal inferior vena cava size and collapsability with sniff indicates a normal right atrial pressure of 3 mmHg Left Ventricular Diastolic Function * Grade I diastolic dysfunction, (abnormal relaxation pattern). MMode 2D Measurements and Calculations IVSd 1.1 cm IVSs 1.5 cm LVIDd 4.8 cm LVIDs 3.8 cm LVPWd 1.1 cm LVPWs 1.5 cm IVS/LVPW 1.1 FS 20.0 % EDV(Teich) 105.1 ml ESV(Teich) 62.1 ml EF(Teich) 40.9 % EDV(cubed) 107.3 ml ESV(cubed) 55.0 ml EF(cubed) 48.7 % % IVS thick 30.0 % % LVPW thick 42.8 % LV mass(C)d 193.5 grams LV mass(C)dI 109.5 grams/m\S\2 LV mass(C)s 219.9 grams LV mass(C)sI 124.4 grams/m\S\2 SV(Teich) 43.0 ml SI(Teich) 24.3 ml/m\S\2 SV(cubed) 52.3 ml SI(cubed) 29.6 ml/m\S\2 Ao root diam 2.5 cm Ao root area 5.1 cm\S\2 ACS 2.2 cm LA dimension 3.8 cm LA/Ao 1.5 LVOT diam 2.2 cm LVOT area 3.8 cm\S\2 LVAd ap4 24.1 cm\S\2 LVLd ap4 6.3 cm EDV(MOD-sp4) 74.7 ml EDV(sp4-el) 78.6 ml LVAs ap4 16.5 cm\S\2 LVLs ap4 5.4 cm ESV(MOD-sp4) 41.9 ml ESV(sp4-el) 42.4 ml EF(MOD-sp4) 44.0 % EF(sp4-el) 46.0 % LVAd ap2 22.1 cm\S\2 LVLd ap2 7.5 cm EDV(MOD-sp2) 54.0 ml EDV(sp2-el) 55.2 ml LVAs ap2 15.6 cm\S\2 LVLs ap2 7.2 cm ESV(MOD-sp2) 29.4 ml ESV(sp2-el) 28.7 ml EF(MOD-sp2) 45.6 % EF(sp2-el) 48.0 % LVLd %diff 16.5 % EDV(MOD-bp) 69.8 ml LVLs %diff 24.7 % ESV(MOD-bp) 39.2 ml EF(MOD-bp) 43.8 % SV(MOD-sp4) 32.9 ml SI(MOD-sp4) 18.6 ml/m\S\2 SV(MOD-sp2) 24.6 ml SI(MOD-sp2) 13.9 ml/m\S\2 SV(MOD-bp) 30.6 ml SI(MOD-bp) 17.3 ml/m\S\2 SV(sp4-el) 36.1 ml SI(sp4-el) 20.4 ml/m\S\2 SV(sp2-el) 26.5 ml SI(sp2-el) 15.0 ml/m\S\2 Doppler Measurements and Calculations MV E max ugo 60.9 cm/sec MV A max ugo 82.0 cm/sec MV E/A 0.74 MV P1/2t max ugo 65.9 cm/sec MV P1/2t 75.9 msec MVA(P1/2t) 2.9 cm\S\2 MV dec slope 254.2 cm/sec\S\2 MV dec time 0.25 sec Ao V2 max 107.1 cm/sec Ao max PG 4.6 mmHg Ao max PG (full) 1.7 mmHg JOSE(V,A) 3.0 cm\S\2 JOSE(V,D) 3.0 cm\S\2 LV V1 max PG 2.9 mmHg LV V1 max 84.7 cm/sec MR max ugo 441.4 cm/sec MR max PG 77.9 mmHg PA V2 max 131.8 cm/sec PA max PG 7.0 mmHg TR max ugo 236.6 cm/sec
--- NOTE | 2017-01-01 15:18 | Progress Note ---
Subjective Date of Service: January 01, 2017. Subjective pt states she has had no additional palpitations since admission and no pleuritic pain, she did have pacemaker adjusted and Dr Jaramillo feels this maybe responsible for some of her palpitations but not her pain.. She describes her pain as 5/10, sharp and pleuritic, she became pale with pain and her son remarked that "something looks wrong with her" when she was having pain. otherwise no other symptoms, 10 systems reviewed and are negative unless listed here Problem List Medical Problems: (1) Asthma, Unspecified Status: Chronic (2) Dizziness Status: Acute (3) Esophageal Reflux Status: Chronic (4) Hypertension Nos Status: Chronic (5) Lumb/Lumbosac Disc Degen Status: Chronic (6) Macular Degeneration Nos Status: Chronic (7) Osteoporosis Nos Status: Chronic (8) Pleuritic chest pain Status: Acute (9) Precordial chest pain Status: Acute (10) Pulmonary emboli Status: Acute (11) Syncope Status: Acute (12) Vertigo Status: Chronic Objective Vital Signs Date Time Temp Pulse Resp B/P Pulse Ox O2 Delivery O2 Flow Rate FiO2 01/01/17 04:17 37.1 76 19 111/62 92 Room Air 01/01/17 04:00 Room Air 01/01/17 00:38 37.0 71 17 112/53 95 Room Air 01/01/17 00:00 Room Air 12/31/16 22:00 Room Air 12/31/16 19:50 69 18 163/89 96 Room Air 12/31/16 19:01 36.3 69 16 146/87 Room Air 12/31/16 18:53 75 20 150/87 94 Room Air 12/31/16 17:00 73 20 130/90 96 Room Air 12/31/16 16:02 74 12/31/16 15:12 36.7 81 24 152/87 96 Room Air Physical Exam General Appearance: WD/WN, no apparent distress Eyes: PERRL, EOMI ENT: hearing grossly normal, pharynx normal Neck: supple, no JVD, trachea midline Respiratory/Chest: chest non-tender, lungs clear, normal breath sounds Cardiovascular: regular rate, rhythm, no gallop, no JVD, no murmur Abdomen: normal bowel sounds, soft Extremities: no pedal edema, no calf tenderness Neurologic/Psychiatric: alert, oriented x 3 Laboratory Results Last 24 Hours Test 12/31/16 16:13 12/31/16 19:45 01/01/17 00:49 01/01/17 04:44 White Blood Count 6.80 K/uL Red Blood Count 4.60 M/uL Hemoglobin 12.6 g/dL Hematocrit 40.6 % Mean Corpuscular Volume 88.3 fL Mean Corpuscular Hemoglobin 27.4 pg Mean Corpuscular Hemoglobin Concent 31.0 g/dl Platelet Count 231 K/uL Mean Platelet Volume 9.9 fL Neutrophils (%) (Auto) 80.1 % Lymphocytes (%) (Auto) 11.5 % Monocytes (%) (Auto) 6.9 % Eosinophils (%) (Auto) 0.7 % Basophils (%) (Auto) 0.7 % Neutrophils # (Auto) 5.44 K/uL Lymphocytes # (Auto) 0.78 K/uL Monocytes # (Auto) 0.47 K/uL Eosinophils # (Auto) 0.05 K/uL Basophils # (Auto) 0.05 K/uL RDW Standard Deviation 50.4 fL RDW Coefficient of Variation 15.6 % Immature Granulocyte % (Auto) 0.1 % Immature Granulocyte # (Auto) 0.01 K/uL Sodium Level 145 mmol/L Potassium Level 3.9 mmol/L Chloride Level 111 mmol/L Carbon Dioxide Level 27 mmol/L Anion Gap 7.0 mmol/L Blood Urea Nitrogen 10 mg/dl Creatinine 0.80 mg/dl Est Creatinine Clear Calc Drug Dose 61.8 ml/min Estimated GFR () 86.6 Estimated GFR (Non- 74.7 BUN/Creatinine Ratio 12.3 Random Glucose 105 mg/dl Calcium Level 8.4 mg/dl Total Creatine Kinase 56 U/L Creatine Kinase MB 0.7 ng/ml Creatine Kinase MB Ratio 1.3 Troponin I < 0.015 ng/ml < 0.015 ng/ml Prothrombin Time 12.1 SECONDS Prothromb Time International Ratio 1.1 Assessment and Plan 71 F presents with chest pain, pleuritic in nature, has a complex recent history of pacemaker placement, associated RV rupture, pericardial tamponade, hemothorax requiring chest tube and PE, baseline COPD, HTN, and GERD with esophageal stricture. Chest pain, pt relates good compliance to meds, pending CTA pursued, serial enzymes and ECG negative and cardiology eval does not feel acs but maybe contemplating a Stress, since such a complex recent history will evaluate chest via CT no specifically suspecting a PE but eval for complex fluid collection given recent pericardial and pleural effusions. Bilateral PE and acute left DVT- Pradaxa 150 mg PO BID for 3-6 months outpatient for treatment Pacemaker, cardiology has reviewed ECho and pacemaker interrogation, adjusted settings of pacemaker, Echo is normal, is also on amiodarone COPD seems stable with combivent GERD with history of esophageal stricture, continue protonix and zantac bid DVT prevention is pradaxa
[2017-01-01] MEDS ORDERED: OPTIRAY 320 IV PRN (17:30)
--- NOTE | 2017-01-01 19:22 | DIAGNOSTIC IMAGING REPORT ---
CHEST CT WITH CONTRAST CT DOSE: 309.67 mGy.cm HISTORY: pleuritic pain recent PE and hemothorax from ruptured rv wall TECHNIQUE: Multiaxial CT images of the chest were performed following the intravenous administration of contrast. COMPARISON: Chest CTA 12/09/2016. FINDINGS: Trace mucoid material within the mid trachea. Otherwise, the central airways are patent. No pneumothorax. Trace left pleural effusion has decreased in size. Linear and peripheral densities within the left lower lobe have slightly improved. This favors atelectasis. There is also a linear density at the base of the right lower lobe, unchanged. This also likely represents atelectasis. No new focal lung consolidations. There is a left-sided dual-chamber pacemaker. The leads remain unchanged in position. The visualized liver and spleen are unremarkable. Mild elevation of the left hemidiaphragm, unchanged. No significant pericardial effusion. The heart is normal in size. No fractures within the visualized osseous structures no mediastinal or hilar lymphadenopathy. Normal caliber thoracic aorta. Significant improvement in the bilateral pulmonary emboli. Only a few areas of linear nonocclusive chronic pulmonary embolus remain. IMPRESSION: 1. Significant improvement in the bilateral pulmonary emboli with only a few areas of linear nonocclusive chronic embolus remaining. 2. Interval improvement in the trace left pleural effusion. 3. Linear and peripheral densities within the left lower lobe have slightly improved. These favor atelectasis. No new focal lung consolidations. Electronically signed by: Reece Alaniz M.D. 01/01/2017 7:21 PM Dictated Date/Time: 01/01/2017 7:12 PM
[2017-01-02 03:45] VITALS: BP 117/66; PULSE 78; TEMP 36.8; O2SAT 92
[2017-01-02 07:58] VITALS: BP 120/75; PULSE 76; TEMP 36.6; O2SAT 92
[2017-01-02] MEDS: RANITIDINE HCL 150 MG TAB PO SCH (08:30)
[2017-01-02] MEDS: DICLOFENAC SOD 1% GEL 100 GM TUBE EXT SCH (08:30)
[2017-01-02] MEDS: CALCIUM 600MG + VIT D 400 IU TAB PO SCH (08:30)
[2017-01-02] MEDS: IPRATROPIUM BROMIDE/ALBUTEROL respimat INH INH SCH (08:30)
[2017-01-02] MEDS: DOCUSATE SODIUM/SENNA 50/8.6MG TAB PO SCH (08:31)
[2017-01-02] MEDS: ASPIRIN 81 MG ECTAB PO SCH (08:31)
[2017-01-02] MEDS: PANTOprazole SOD 40 MG TAB PO SCH (08:31)
[2017-01-02] MEDS: AMIODARONE 200 MG TAB PO SCH (08:31)
[2017-01-02] MEDS: CEROVITE ADV FORMULA TAB PO SCH (08:31)
[2017-01-02] MEDS: DABIGATRAN ELEXILATE 75 MG CAP PO SCH (08:31)
[2017-01-02] MEDS: CHOLECALCIFEROL 1000 INTER.UNIT TAB PO SCH (08:32)
--- NOTE | 2017-01-02 10:56 | Discharge Instructions ---
Discharge Instructions Date of Service January 02, 2017. Admission Reason for Admission: Chest Discomfort Discharge Discharge Diagnosis / Problem: Chest pain Discharge Goals Goal(s): Decrease discomfort, Improve function, Diagnostic testing, Therapeutic intervention Activity Recommendations Activity Limitations: resume your previous activity (as tolerated) . Instructions / Follow-Up Instructions / Follow-Up You were admitted to the hospital after presenting to the ER with chest pain. Your workup included interrogation of your pacemaker, which did not show any irregular rhythms or acute events. The palpitations that you were experiencing may have been caused by your pacemaker, so your pacemaker settings were adjusted to help minimize this. You also had an echocardiogram, or ultrasound of the heart done, which did not show any significant changes from your previous study on 11/26/16. A repeat CT scan of the chest was done to assess for new/worsening clots in your lungs, however this actually showed significant improvement of your previous clots. Further cardiac workup included checking serial cardiac enzymes, which were all normal, and monitoring your heart on the telemetry unit, which did not show any abnormal findings. You were also assess by cardiology prior to discharge, who cleared you from a cardiac standpoint. Given your normal work up and resolution of symptoms, you are now medically stable for discharge to home with continuation of your previous home health services. Medications: *No changes have been made to your home medications. Please continue to take your home medications as prescribed. Follow up: *Please follow up with your primary care provider in 1 week regarding your hospital stay. *Continue with your routine follow ups with cardiology as scheduled. Please seek medical attention if you experience fevers, chills, sweats, chest pain, shortness of breath, lightheadedness, loss of consciousness, nausea, vomiting, severe abdominal pain, numbness or tingling. Current Hospital Diet Patient's current hospital diet: AHA Diet (Heart Healthy) Discharge Diet Recommended Diet: AHA Diet (Heart Healthy) Pending Studies Studies pending at discharge: no Laboratory Results Hemoglobin A1c Test 11/13/16 06:05 Range/Units Estimated Average Glucose 117 mg/dl Hemoglobin A1c 5.7 H 4.5-5.6 % Lipid Panel Test 11/12/16 09:40 Range/Units Triglycerides Level 221 H 0-150 mg/dl Cholesterol Level 198 0-200 mg/dl HDL Cholesterol 52 mg/dl Cholesterol/HDL Ratio 3.8 LDL Cholesterol, Calculated 102 mg/dl Medical Emergencies . Who to Call and When: Medical Emergencies: If at any time you feel your situation is an emergency, please call 911 immediately. . Non-Emergent Contact Non-Emergency issues call your: Primary Care Provider, Supervisor [employer] Call Non-Emergent contact if: you have a fever, your pain is not controlled, your pain is worsening, your pain is unusual for you, your pain is concerning you, you have any medication questions . Past History Medical & Surgical History: (1) Chest discomfort . "Provider Documentation" section prepared by Praveena Fairbanks. . VTE Core Measure Inpt VTE Proph given/why not?: Other Anticoagulation (Pradaxa)
[2017-01-02 11:30] VITALS: BP 128/83; PULSE 73; TEMP 36.7; O2SAT 94
[2017-01-02] MEDS ORDERED: VLTG EXT (11:33)
--- NOTE | 2017-01-02 11:38 | CARDIOLOGY PROGRESS NOTE ---
DATE: 01/02/2017 HISTORY OF PRESENT ILLNESS: This morning, Mrs. Villegas claims to be feeling well. The chest pain which prompted her admission has resolved entirely. She has no pleuritic symptoms. She is mildly tender at the implant site for her pacemaker, but this is improving. She denies significant breathing trouble. She claims to be ambulatory around her room. She denied dizziness or lightheadedness. PHYSICAL EXAMINATION: GENERAL: She is alert and oriented. Her mood and affect appeared normal. She answered all questions appropriately. VITAL SIGNS: Include blood pressure 120/75 with a pulse of 76. LUNGS: Auscultation of her lungs revealed them to be clear. CARDIAC EXAMINATION: Revealed her to be in a regular rhythm. There were no murmurs appreciated. LABORATORY STUDIES: I reviewed her imaging studies obtained yesterday including her chest CT. This did not reveal any evidence of pericardial effusion. The pleural effusion on the left appears to have been improving as were the pulmonary seen previously. There are no other acute findings. Review of telemetry today reveals normal function of her pacemaker and primarily normal sinus rhythm, no arrhythmias identified. ASSESSMENT AND PLAN: Atypical chest pain. This is of unclear etiology. The patient does not appear to have any significant findings on CT or physical examination, other than some mild reproducibility in the left upper chest area. At this point, I do not feel that any additional cardiac evaluation is required and would not pursue outpatient stress testing given the atypical nature of her symptoms in the absence of an elevation in her biomarkers. She should follow up on routine basis without change in her medical therapy currently.
[2017-01-02 11:48] VITALS: BP 128/83; PULSE 73; TEMP 36.7; O2SAT 94
--- NOTE | 2017-01-02 14:55 | Discharge Summary ---
Discharge Summary Date of Service January 02, 2017. (Praveena Fairbanks PA-C) Discharge Summary Admission Date: December 31, 2016 at 18:59 Discharge Date: January 02, 2017 Discharge Disposition: Home with services Principal Diagnosis: Chest pain Problems/Secondary Diagnoses: (1) Asthma, Unspecified Status: Chronic (2) Esophageal Reflux Status: Chronic (3) Hypertension Nos Status: Chronic (4) Lumb/Lumbosac Disc Degen Status: Chronic (5) Macular Degeneration Nos Status: Chronic (6) Osteoporosis Nos Status: Chronic (7) Vertigo Status: Chronic Immunizations: Have You Had Influenza Vaccine: Yes Influenza Vaccine Date: Jun 23, 2008 History of Tetanus Vaccine?: Yes History of Pneumococcal: Yes History of Hepatitis B Vaccine: No Procedures: Echo: * -- Conclusions -- * 1. Normal LV size. Mild concentric LVH. * 2. Normal LV systolic function. LVEF 55-60%. Abnormal septal motion consistent with conduction abnormality. Grade I diastolic dysfunction. * 3. Normal RV size and function. * 4. No significant valvular pathology. * 5. Possible small, localized anterior pericardial effusion. * 6. Normal estimated RA and PA pressures. * 7. Compared with prior study on 11/26/2016: Possible effusion unchanged to improved. Consultations: Cardiology--Dr. Jaramillo/Dr. 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 (Yancy Lopez MD) Medication Reconciliation New Medications: Diclofenac Sod (Voltaren) 100 Appln/100 Gm Gel 1 APPLN EXT QID for 30 Days Continued Medications: Amiodarone Hcl (Cordarone) 200 Mg Tab 200 MG PO QAM, TAB Calcium/Vitamin D (Os-Lito 500 Plus D) Tab 1 TAB PO BID, TAB Cholecalciferol (Vitamin D3) 2,000 Unit Tab 1 TAB PO DAILY Dabigatran Etexilate Mesylate (Pradaxa) 150 Mg Cap 150 MG PO BID, CAP Ipratropium-Albuterol (Combivent Respimat) 1 Aer Aer 1 PUFFS INH QID, INH Meclizine Hcl (Meclizine Hcl) 25 Mg Tab 25 MG PO TID PRN for DIZZY Nitroglycerin (Nitrostat) 0.4 Mg Sub 0.4 MG UT PRN PRN for Heartburn, BTL Ocuvite Preservision (Ocuvite Preservision) 1 Tab Tab 1 TAB PO BID, 0 Refills Pantoprazole (Protonix) 40 Mg Tab 40 MG PO DAILY, #30 TAB Ranitidine (Zantac) 150 Mg Tab 150 MG PO BID, TAB Sennosides-Docusate Sodium (Stool Softener) 1 Tab Tab 3 TAB PO DAILY 1QAM 2HS Tramadol (Ultram) 50 Mg Tab 50 MG PO BID PRN for Pain, TAB Referrals At Discharge Continued Follow up Referrals: Family Practice Referral - Within 1 Week with Hannah Marshall C.R.N.P Discharge Exam Patient reports feeling well. She denies any chest pain or shortness of breath. She states that her palpitations have resolved. She currently denies any complaints. The patient denies fevers, chills, sweats, chest pain, palpitations, claudication, cough, wheezing, shortness of breath, nausea, vomiting, abdominal pain, dysuria, hematuria, urinary retention, paralysis, weakness, numbness and tingling. Review of Systems: Constitutional: No fever, No chills, No sweats Eyes: No worsening of vision, No eye pain, No diplopia ENT: No hearing loss, No sore throat, No trouble swallowing Respiratory: No cough, No wheezing, No shortness of breath Cardiovascular: No chest pain, No claudication, No palpitations Abdomen: No pain, No nausea, No vomiting Musculoskeletal: No joint pain, No muscle pain, No calf pain Genitourinary - Female: No dysuria, No urinary retention, No hematuria Neurologic: No paralysis, No weakness, No numbness/tingling Integumentary: No rash, No itch, No color change Physical Exam: General Appearance: WD/WN, no apparent distress, + obese Eyes: normal inspection, PERRL, EOMI ENT: normal ENT inspection, hearing grossly normal, pharynx normal Neck: supple, no JVD, trachea midline Respiratory/Chest: normal breath sounds, no respiratory distress, + crackles (left base) Cardiovascular: regular rate, rhythm, no gallop, no murmur Abdomen / GI: normal bowel sounds, non tender, soft Extremities: normal inspection, no calf tenderness, no pedal edema Neurologic/Psychiatric: alert, normal mood/affect, oriented x 3 Skin: normal color, warm/dry, no rash (Praveena Fairbanks .CHRIS) Hospital Course 71 y/o female with a history of complete heart block status post pacemaker, cardiac tamponade secondary to RV puncture, hemothorax following pacemaker, bilateral PE following pacemaker, hypertension, COPD, and GERD who presented with pleuritic chest pain. Chest pain--resolved -Admitted to telemetry for observation. Pt in sinus or paced rhythm overnight with HR 70s-80s -Cardiac enzymes negative 3 -EKG no ischemic changes -Repeat echo shows no significant changes compared to 11/26/16 study -Repeat CT of chest shows significant improvement and bilateral PEs. Interval development of trace left pleural effusion -Pacemaker interrogated by Dr. Jaramillo, no afib. Settings adjusted to minimize pt's palpitations -Cardiology consultation appreciate recs: patient cleared for discharge from a cardiac standpoint -Continue amiodarone 200 mg PO qd H/o bilateral PE and DVT--improving -CT as above -Continue Pradaxa 150 mg PO BID COPD--stable -Continue Combivent GERD with history of esophageal stricture--stable -Continue Protonix 40 mg PO qd and Zantac 150 mg PO BID DVT prophylaxis -Pradaxa Total Time Spent: Greater than 30 minutes This includes examination of the patient, discharge planning, medication reconciliation, and communication with other providers. (Praveena Fairbanks PA-C) Discharge Instructions Please refer to the electronic Patient Visit Report (Discharge Instructions) for additional information. (Praveena Fairbanks PA-C) Additional Copies To Hannah Marshall C.R.NTeodoro Reviewed: Pt Seen/Exam by Me (Yancy Lopez MD) History Physician Certifed Refrigeration Operator Supervision Note: I interviewed and examined the patient. Discussed with YEYO Fairbanks and agree with findings and plan as documented in the note. Any exceptions or clarifications are listed here: Pt feels very well, no further CP. Tele and vitals reviewed NAD, AAOx3 RRR no mgr CTAB no wcr, breathing unlabored Abd +BS soft NT ND Ext no edema 71 yo female with recent complex medical history from cardiopulmonary standpoint , here with pleuritic CP and presyncope which is now resolved. This may have been related to her pacemaker settings as she has nto had any further symptoms after an adjustment by EP yesterday. PEs are improving, serial cardiac biomarkers are negative. No further workup needed as an inpatient or outpatient. Stable for dc to home Documented By: Yancy Lopez (Yancy Lopez MD)
== END 2017-01-02 12:02 | disposition home or self-care (01) ==
LOC: ENRESERVDT → ENRESERVTM → C.EDB 15:09 → C.2E 18:59
PROVIDERS: ADMIT Family Medicine; ATTEND Family Medicine
DX: R07.9 Chest pain, unspecified (principal); I10 Essential (primary) hypertension; Z95.0 Presence of cardiac pacemaker; J44.9 Chronic obstructive pulmonary disease, unspecified; K21.9 Gastro-esophageal reflux disease without esophagitis; J45.909 Unspecified asthma, uncomplicated; Z79.899 Other long term (current) drug therapy; Z86.711 Personal history of pulmonary embolism; Z86.718 Personal history of other venous thrombosis and embolism; Z83.3 Family history of diabetes mellitus; Z96.659 Presence of unspecified artificial knee joint; Z82.49 Family history of ischemic heart disease and other diseases of the circulatory system

== ENCOUNTER → 2017-01-19 | Outpatient (CLI) | payer OTHER ==
[~2017-01-19] MED LIST changes: +AMIO200T4 PO; -AMOX1TAB43 PO; -BCTO EXT; -CRD200 PO; +HYDR-5688 PO; +VLTG EXT
--- NOTE | 2017-01-19 13:50 | DIAGNOSTIC IMAGING REPORT ---
CHEST 2 VIEWS ROUTINE CLINICAL HISTORY: Inspiratory chest pain. Cough. COMPARISON STUDY: 12/31/2016 FINDINGS: The cardiac and mediastinal contours remain stable. There is a left subclavian dual-chamber central venous pacemaker present. There are linear prior opacities in the left midlung zone of both lung bases, likely atelectatic. There is no lobar consolidation. There is no failure. There are no pleural effusions. There is a pleural-based opacity posteriorly on the left on the lateral view. This appears smaller than on the prior December 2010 study.[ IMPRESSION: Bilateral atelectatic change. No acute findings. Electronically signed by: Danny Veras M.D. 01/19/2017 1:48 PM Dictated Date/Time: 01/19/2017 1:47 PM
== END | disposition home or self-care (01) ==
LOC: C.RADPV 12:19
PROVIDERS: ATTEND Family Medicine
DX: R52 Pain, unspecified (principal); R05 Cough

== ENCOUNTER 2017-01-20 10:12 | Emergency (ER) | payer OTHER ==
[~2017-01-20] VITALS: Ht 154.9 cm; Wt 78.9 kg
[~2017-01-20 10:12] MED LIST changes: -HYDR-5688 PO
[2017-01-20 10:21] VITALS: TEMP 36.9; Ht 154.9 cm; Wt 78.9 kg
--- NOTE | 2017-01-20 10:54 | EMERGENCY ROOM VISIT NOTE ---
History Report prepared by Chely: Isela Rosales Under the Supervision of: Dr. Byron Ogden M.D. First contact with patient: 10:39 Chief Complaint: CHEST PAIN Stated Complaint: DOCTOR REFERRED, CHEST CTS REQUESTED History of Present Illness The patient is a 71 year old female who presents to the Emergency Room with complaints of constant chest pain beginning 6 days ago. The patient states that she is having sharp chest pains that go into her lugs. She reports that she went to see her doctor yesterday and got a chest x-ray. She notes that her doctor wanted her to be seen here in the ED to get a CT scan. The patient states that her pain is worsened with breathing. She complains of back strain and pain in her lungs. She denies any new abdominal pain. The patient states that she had a pacemaker placed in November and had a pulmonary embolis. She also notes a history of hernias. She reports that she had this pain last week but it resolved on its own. The patient states that she is on Pradaxa. Source of History: patient Onset: 6 days ago Position: chest Quality: sharp Timing: constant Modifying Factors (Worsening): breathing Associated Symptoms: No abdominal pain Note: She complains of back strain and pain in her lungs. Review of Systems All systems have been listed, reviewed, and are negative other than those previously mentioned. Please see Additional Medical History Sheet. 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 (13) Macular Degeneration Nos (14) Nasal bone fracture (15) Nasal bone fracture (16) Nausea (17) Osteoporosis Nos (18) Pacemaker (19) Pulmonary emboli (20) Vertigo (21) Vertigo (22) Vertigo (23) Vertigo Surgical Problems: (1) Knee joint replacement status Social History Problems: (1) Osteoporosis Nos Family History Diabetes mellitus Hypertension Social History Smoking Status: Former Smoker Alcohol Use: none Drug Use: none Marital Status: Housing Status: lives alone Occupation Status: retired Current/Historical Medications Scheduled Amiodarone Hcl (Cordarone), 200 MG PO QAM Calcium/Vitamin D (Os-Lito 500 Plus D), 1 TAB PO BID Cholecalciferol (Vitamin D3), 1 TAB PO DAILY Dabigatran Etexilate Mesylate (Pradaxa), 150 MG PO BID Diclofenac Sod (Voltaren), 1 APPLN EXT QID Ipratropium-Albuterol (Combivent Respimat), 1 PUFFS INH QID Ocuvite Preservision (Ocuvite Preservision), 1 TAB PO BID Pantoprazole (Protonix), 40 MG PO DAILY Ranitidine (Zantac), 150 MG PO BID Sennosides-Docusate Sodium (Stool Softener), 3 TAB PO DAILY Scheduled PRN Hydrocodone/Acetaminophen 5MG/325MG (Equality 5MG/325MG), 1-2 TABLETS PO Q4 PRN for Pain Meclizine Hcl (Meclizine Hcl), 25 MG PO TID PRN for DIZZY Nitroglycerin (Nitrostat), 0.4 MG UT PRN PRN for Heartburn Tramadol (Ultram), 50 MG PO BID PRN for Pain Allergies Coded Allergies: Camphor (Unverified Allergy, Unknown, SHORTNESS OF BREATH, 01/20/17) Eucalyptus Oil (Unverified Allergy, Unknown, SHORTNESS OF BREATH, 01/20/17) Menthol (Unverified Allergy, Unknown, SHORTNESS OF BREATH, 01/20/17) Aspirin (Verified Adverse Reaction, Mild, ABD. PAIN AND VOMITING, 01/20/17) Physical Exam Vital Signs Date Time Temp Pulse Resp B/P (MAP) Pulse Ox O2 Delivery O2 Flow Rate FiO2 01/20/17 13:07 70 20 102/84 95 01/20/17 12:32 76 20 115/67 97 Room Air 01/20/17 10:56 85 20 121/86 96 Room Air 01/20/17 10:55 96 Room Air 01/20/17 10:48 96 Room Air 01/20/17 10:44 88 01/20/17 10:21 36.9 94 20 129/85 96 Room Air Physical Exam GENERAL: Patient awake, alert, oriented x 3. Patient follows commands. Patient does not appear toxic. Patient is adequately hydrated and well- nourished. SKIN: No erythema, pallor, cyanosis or rash HEENT: Normal head, pupils equal, reactive to light and accommodation. Ears normal. Oral cavity and posterior pharynx appear normal. Neck: Without adenopathy, no neck vein distention. LUNGS: Patient has pleuritic pain on inspiration. No wheezes, no rales, no rhonchi. HEART: No murmurs. No gallops. No rubs ABDOMEN: No masses, no rebound, no hepatomegaly or splenomegaly. EXTREMITIES: No signs of trauma. No pedal or pretibial edema. No calf or thigh tenderness. NEUROLOGIC: Cranial nerves II-XII within normal limits. No gross motor sensory function deficits. Medical Decision & Procedures ER Provider Diagnostic Interpretation: CT results are interpretations by the radiologist and per my review. CT ANGIOGRAPHY OF THE CHEST, PULMONARY EMBOLUS PROTOCOL FINDINGS: A left subclavian dual lead pacer is in place. Moderate cardiomegaly is unchanged. A trace pericardial effusion has slightly increased in size since exam of January 01, 2017. No enlarged axillary, mediastinal or hilar lymph nodes are present. There is no pneumomediastinum. There is no evidence of thoracic aortic dissection. A small hiatal hernia is present. There are trace bilateral pleural effusions. Lingular and left lower lobe opacity favors atelectasis. Right middle lobe and right lower lobe opacity also favors atelectasis. A small embolus is noted within the right lower lobe pulmonary artery. This has decreased in size since exam of January 01, 2017. There are tiny residual pulmonary emboli within segmental and subsegmental vessels of both lower lobes. No new emboli are present. Upper abdomen is unremarkable. IMPRESSION: 1. Continued improvement in residual pulmonary emboli since exam of January 01, 2017. No new pulmonary emboli identified. 2. Trace bilateral pleural effusions with bilateral lower lobe, right middle lobe and lingular opacities suggestive of atelectasis. 3. Trace pericardial effusion, slightly increased in size since prior exam. Electronically signed by: Doug Schuler M.D. 01/20/2017 12:31 PM Dictated Date/Time: 01/20/2017 12:17 PM Laboratory Results 01/20/17 10:45 Red Blood Count 4.55, Mean Corpuscular Volume 86.2, Mean Corpuscular Hemoglobin 25.9, Mean Corpuscular Hemoglobin Concent 30.1, Mean Platelet Volume 10.2, Neutrophils (%) (Auto) 77.2, Lymphocytes (%) (Auto) 15.3, Monocytes (%) (Auto) 6.5, Eosinophils (%) (Auto) 0.6, Basophils (%) (Auto) 0.3, Neutrophils # (Auto) 5.97, Lymphocytes # (Auto) 1.18, Monocytes # (Auto) 0.50, Eosinophils # (Auto) 0.05, Basophils # (Auto) 0.02 01/20/17 10:45 Test 01/20/17 10:45 White Blood Count 7.73 K/uL (4.8-10.8) Red Blood Count 4.55 M/uL (4.2-5.4) Hemoglobin 11.8 g/dL (12.0-16.0) Hematocrit 39.2 % (37-47) Mean Corpuscular Volume 86.2 fL (80-100) Mean Corpuscular Hemoglobin 25.9 pg (25-34) Mean Corpuscular Hemoglobin Concent 30.1 g/dl (32-36) Platelet Count 258 K/uL (130-400) Mean Platelet Volume 10.2 fL (7.4-10.4) Neutrophils (%) (Auto) 77.2 % Lymphocytes (%) (Auto) 15.3 % Monocytes (%) (Auto) 6.5 % Eosinophils (%) (Auto) 0.6 % Basophils (%) (Auto) 0.3 % Neutrophils # (Auto) 5.97 K/uL (1.4-6.5) Lymphocytes # (Auto) 1.18 K/uL (1.2-3.4) Monocytes # (Auto) 0.50 K/uL (0.11-0.59) Eosinophils # (Auto) 0.05 K/uL (0-0.5) Basophils # (Auto) 0.02 K/uL (0-0.2) RDW Standard Deviation 49.3 fL (36.4-46.3) RDW Coefficient of Variation 15.6 % (11.5-14.5) Immature Granulocyte % (Auto) 0.1 % Immature Granulocyte # (Auto) 0.01 K/uL (0.00-0.02) Prothrombin Time 14.1 SECONDS (9.0-12.0) Prothromb Time International Ratio 1.3 (0.9-1.1) Activated Partial Thromboplast Time 63.6 SECONDS (21.0-31.0) Partial Thromboplastin Ratio 2.4 Anion Gap 8.0 mmol/L (3-11) Est Creatinine Clear Calc Drug Dose 63.8 ml/min Estimated GFR () 89.3 Estimated GFR (Non- 77.0 BUN/Creatinine Ratio 19.8 (10-20) Calcium Level 8.2 mg/dl (8.5-10.1) Total Bilirubin 0.4 mg/dl (0.2-1) Aspartate Amino Transf (AST/SGOT) 7 U/L (15-37) Alanine Aminotransferase (ALT/SGPT) 13 U/L (12-78) Alkaline Phosphatase 81 U/L (45-117) Troponin I < 0.015 ng/ml (0-0.045) Total Protein 7.7 gm/dl (6.4-8.2) Albumin 3.5 gm/dl (3.4-5.0) Globulin 4.2 gm/dl (2.5-4.0) Albumin/Globulin Ratio 0.8 (0.9-2) Laboratory results as stated above per my review. Medications Administered Medications (Trade) Dose Ordered Sig/Barb Route Start Time Stop Time Status Last Admin Dose Admin Acetaminophen/ Hydrocodone Bitart (Equality 5/325 Tab) 1 tab ONE ONCE PO 01/20/17 13:00 01/20/17 13:01 DC 01/20/17 13:10 1 TAB ECG Indication: chest pain Rate (beats per minute): 89 Rhythm: normal sinus Findings: RBBB, no acute ischemic change, no ectopy ED Course 1039: Past medical records reviewed. The patient was evaluated in room C4. A complete history and physical examination was performed. 1300: Hydrocodone Bitart/Acetaminophen 1 tab PO. 1256: I reevaluated and updated the patient. She is doing well. 1307: Upon reevaluation, the patient appeared to have improvement of her symptoms. I discussed today's findings with the patient. She verbalized agreement of the treatment plan. The patient was discharged home. Medical Decision I considered multiple diagnoses including myocardial infarction, chest wall pain , pericarditis, myocarditis, aortic emergencies, pleuritic chest pain, pulmonary embolism, congestive heart failure, GI causes, and other significant cardiopulmonary disorders. Medication Reconciliation: I attest that I have personally reviewed the patient' s current medication list. Blood pressure Screening: Patient was found to have normal blood pressure on screening and does not require follow up. The patient has a prior history of a PE. She is currently on Pradaxa which makes that diagnosis less likely. CT was performed and no PE was found. Blood work was also evaluated. Please see above. The patient continues to complain of pain and states that the Ultram at home is not helping her. She was given one Equality here and a prescription for the same. The patient has no evidence of infection. I do not believe she needs any antibiotics at this time. The patient will need to be followed by her family physician. [place] Drug Monitoring Program Search Results: patient reviewed within database, no issues identified Impression Primary Impression: Pleuritic chest pain Scribe Attestation The scribe's documentation has been prepared under my direction and personally reviewed by me in its entirety. I confirm that the note above accurately reflects all work, treatment, procedures, and medical decision making performed by me. Departure Information Dispostion Home / Self-Care Prescriptions Hydrocodone/Acetaminophen 5MG/325MG (Equality 5MG/325MG) Tab 1-2 TABLETS PO Q4 Y for Pain, #20 TAB PRN PAIN Prov: Byron Ogden M.D. 01/20/17 Referrals Hannah Marshall C.R.N.P (PCP) Forms HOME CARE DOCUMENTATION FORM, IMPORTANT VISIT INFORMATION Patient Instructions My [facility] Big Screen Tools Additional Instructions Tylenol for mild to moderate pain. 1-2 hydrocodone every 4 hours as needed for moderate to severe pain. Stop tramadol. Follow-up with your family physician within the next 2 weeks.
[2017-01-20 10:55] VITALS: O2SAT 96
[2017-01-20] MEDS ORDERED: OPTIRAY 320 IV PRN (11:00)
[2017-01-20 11:02] LABS: BASO % 0.3 %; BASO ABS # 0.02 K/uL (0-0.2); COMPLETE YES; EOS % 0.6 %; HEMATOCRIT 39.2 % (37-47); IG% 0.1 %; LYMPH % 15.3 %; LYMPH ABS # 1.18 K/uL (1.2-3.4); MEAN CELL VOLUME 86.2 fL (80-100); MEAN CORPUSCULAR HEMOGLOBIN 25.9 pg (25-34); MEAN CORPUSCULAR HGB CONC 30.1 g/dl (32-36); MEAN PLATELET VOLUME 10.2 fL (7.4-10.4); MONO % 6.5 %; NEUT % 77.2 %; PLATELET COUNT 258 K/uL (130-400); RED BLOOD COUNT 4.55 M/uL (4.2-5.4); WHITE BLOOD COUNT 7.73 K/uL (4.8-10.8)
[2017-01-20 11:17] LABS: INR 1.3 (0.9-1.1); PARTIAL THROMBOPLASTIN RATIO 2.4; PROTHROMBIN TIME (PATIENT) 14.1 SECONDS (9.0-12.0)
[2017-01-20 11:22] LABS: ALT/SGPT 13 U/L (12-78); AST/SGOT 7 U/L (15-37); BLOOD UREA NITROGEN 15 mg/dl (7-18); BUN/CREATININE RATIO 19.8 (10-20); CALCIUM 8.2 mg/dl (8.5-10.1); CARBON DIOXIDE 26 mmol/L (21-32); CHLORIDE 108 mmol/L (98-107); CREATININE 0.78 mg/dl (0.60-1.20); GLUCOSE 91 mg/dl (70-99); POTASSIUM 4.1 mmol/L (3.5-5.1); SODIUM 142 mmol/L (136-145)
[2017-01-20 11:27] LABS: ALB/GLOB RATIO 0.8 (0.9-2); ALKALINE PHOSPHATASE 81 U/L (45-117)
--- NOTE | 2017-01-20 12:32 | DIAGNOSTIC IMAGING REPORT ---
CT ANGIOGRAPHY OF THE CHEST, PULMONARY EMBOLUS PROTOCOL CLINICAL HISTORY: Pleuritic chest pain. Previous pulmonary emboli. COMPARISON STUDY: Chest CT January 01, 2017. TECHNIQUE: Following IV administration of 119 mL of Optiray-320, helical axial images of the chest were obtained utilizing the pulmonary embolus protocol. Maximal intensity projections and sagittal and coronal reformats were viewed on an independent 3D workstation. IV contrast was administered without complication. CT DOSE: 529.06 mGycm FINDINGS: A left subclavian dual lead pacer is in place. Moderate cardiomegaly is unchanged. A trace pericardial effusion has slightly increased in size since exam of January 01, 2017. No enlarged axillary, mediastinal or hilar lymph nodes are present. There is no pneumomediastinum. There is no evidence of thoracic aortic dissection. A small hiatal hernia is present. There are trace bilateral pleural effusions. Lingular and left lower lobe opacity favors atelectasis. Right middle lobe and right lower lobe opacity also favors atelectasis. A small embolus is noted within the right lower lobe pulmonary artery. This has decreased in size since exam of January 01, 2017. There are tiny residual pulmonary emboli within segmental and subsegmental vessels of both lower lobes. No new emboli are present. Upper abdomen is unremarkable. IMPRESSION: 1. Continued improvement in residual pulmonary emboli since exam of January 01, 2017. No new pulmonary emboli identified. 2. Trace bilateral pleural effusions with bilateral lower lobe, right middle lobe and lingular opacities suggestive of atelectasis. 3. Trace pericardial effusion, slightly increased in size since prior exam. Electronically signed by: Doug Schuler M.D. 01/20/2017 12:31 PM Dictated Date/Time: 01/20/2017 12:17 PM
[2017-01-20] MEDS ORDERED: HYDR-5688 PO (12:55)
[2017-01-20] MEDS ORDERED: HYDROCODONE/ACETAMOPHEN 5/325MG TAB PO ONE (13:00)
[2017-01-20 13:07] VITALS: BP 102/84; PULSE 70; O2SAT 95
== END 2017-01-20 13:19 | disposition home or self-care (01) ==
LOC: C.EDB 10:14 → C.EDC 13:19
DX: R07.1 Chest pain on breathing (principal); M54.9 Dorsalgia, unspecified; J45.909 Unspecified asthma, uncomplicated; K57.90 Diverticulosis of intestine, part unspecified, without perforation or abscess without bleeding; I10 Essential (primary) hypertension; K21.9 Gastro-esophageal reflux disease without esophagitis; M51.37 Other intervertebral disc degeneration, lumbosacral region; H35.30 Unspecified macular degeneration; M81.0 Age-related osteoporosis without current pathological fracture; Z79.01 Long term (current) use of anticoagulants; Z95.0 Presence of cardiac pacemaker; Z86.711 Personal history of pulmonary embolism; Z96.659 Presence of unspecified artificial knee joint; Z86.718 Personal history of other venous thrombosis and embolism; Z87.891 Personal history of nicotine dependence; Z83.3 Family history of diabetes mellitus; Z82.49 Family history of ischemic heart disease and other diseases of the circulatory system

== ENCOUNTER → 2017-05-25 | Outpatient (CLI) | payer OTHER ==
[~2017-05-25] MED LIST changes: +HYDR-5688 PO
[2017-05-25 17:50] LABS: BLOOD UREA NITROGEN 14 mg/dl (7-18); BUN/CREATININE RATIO 17.2 (10-20); CALCIUM 8.7 mg/dl (8.5-10.1); CARBON DIOXIDE 28 mmol/L (21-32); CHLORIDE 107 mmol/L (98-107); CREATININE 0.82 mg/dl (0.60-1.20); GLUCOSE 91 mg/dl (70-99); POTASSIUM 4.1 mmol/L (3.5-5.1); SODIUM 140 mmol/L (136-145)
== END | disposition home or self-care (01) ==
LOC: C.LABPVFM 15:09
PROVIDERS: ATTEND Nurse Practitioner
DX: I10 Essential (primary) hypertension (principal); M81.0 Age-related osteoporosis without current pathological fracture; E55.9 Vitamin D deficiency, unspecified

== ENCOUNTER 2017-08-18 12:22 | Emergency (ER) | payer OTHER ==
[~2017-08-18] VITALS: Ht 157.5 cm; Wt 82.8 kg
[~2017-08-18 12:22] MED LIST changes: -HYDR-5688 PO
[2017-08-18 12:26] VITALS: TEMP 36.8; Ht 157.5 cm; Wt 82.8 kg
[2017-08-18] MEDS ORDERED: FAMOTIDINE 20MG/5ML IV PUSH IV STA (13:48)
[2017-08-18] MEDS ORDERED: GI COCKTAIL PO STA (13:48)
[2017-08-18] MEDS ORDERED: SODIUM CHLORIDE 0.9% 1000ML 1,000 ML IV STA (13:48)
[2017-08-18 13:59] VITALS: O2SAT 95
--- NOTE | 2017-08-18 14:05 | EMERGENCY ROOM VISIT NOTE ---
History Report prepared by Chely: Dot Campbell Under the Supervision of: Dr. Bernardo León M.D. First contact with patient: 13:30 Chief Complaint: SHORTNESS OF BREATH Stated Complaint: SHAKEY, SOB, CHEST PRESSURE Nursing Triage Summary: pt reports upon waking this am at 0700 feeling shakey, chest heaviness and when takes deep breath has mild pain. has pacer. pt walks with staggering. History of Present Illness The patient is a 72 year old female who presents to the Emergency Room with complaints of persistent shortness of breath that began at 0700. She states that her symptoms worsen with deep breaths. The patient describes her discomfort as chest tightness and rapid heart beat. She states she had some diarrhea earlier this morning and has been "shaky" all throughout her body. The patient denies any coughing, congestion, or chills. She has a history of syncopal episodes. The patient denies having any heart attacks. She states a history of acid reflux, noting her symptoms are not similar. The patient also notes a history of blood clots in her lung and left leg, noting her symptoms feel differently now. She denies a history of anxiety. Source of History: patient Onset: 0700 Position: other (global) Timing: other (persistent) Associated Symptoms: + chest pain, + diarrhea, No chills, No cough Review of Systems See HPI for pertinent positives and negatives. A total of ten systems were reviewed and were otherwise negative. 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 (13) Macular Degeneration Nos (14) Nasal bone fracture (15) Nasal bone fracture (16) Nausea (17) Osteoporosis Nos (18) Pacemaker (19) Pulmonary emboli (20) Vertigo (21) Vertigo (22) Vertigo (23) Vertigo Surgical Problems: (1) Knee joint replacement status Social History Problems: (1) Osteoporosis Nos Family History Diabetes mellitus Hypertension Social History Smoking Status: Never Smoker Alcohol Use: none Drug Use: none Marital Status: Housing Status: lives alone Occupation Status: retired Current/Historical Medications Scheduled Calcium/Vitamin D (Os-Lito 500 Plus D), 1 TAB PO BID Cholecalciferol (Vitamin D3), 1 TAB PO DAILY Dabigatran Etexilate Mesylate (Pradaxa), 150 MG PO BID Fluticasone Propionate (Nasal) (Flonase Allergy Relief), 1 SPRAY AMERICO HS Ipratropium-Albuterol (Combivent Respimat), 1 PUFFS INH QID Ocuvite Preservision (Ocuvite Preservision), 1 TAB PO BID Pantoprazole (Protonix), 40 MG PO DAILY Ranitidine (Zantac), 150 MG PO BID Sennosides-Docusate Sodium (Stool Softener), 3 TAB PO DAILY Scheduled PRN Meclizine Hcl (Meclizine Hcl), 25 MG PO TID PRN for DIZZY Nitroglycerin (Nitrostat), 0.4 MG UT PRN PRN for Heartburn Tramadol (Ultram), 50 MG PO BID PRN for Pain Allergies Coded Allergies: Camphor (Unverified Allergy, Unknown, SHORTNESS OF BREATH, 08/18/17) Eucalyptus Oil (Unverified Allergy, Unknown, SHORTNESS OF BREATH, 08/18/17) Menthol (Unverified Allergy, Unknown, SHORTNESS OF BREATH, 08/18/17) Aspirin (Verified Adverse Reaction, Mild, ABD. PAIN AND VOMITING, 08/18/17) Physical Exam Vital Signs Date Time Temp Pulse Resp B/P (MAP) Pulse Ox O2 Delivery O2 Flow Rate FiO2 08/18/17 18:21 83 18 139/79 92 Room Air 08/18/17 16:07 73 16 134/81 97 Room Air 08/18/17 14:52 74 19 98 08/18/17 14:47 74 18 97 08/18/17 14:42 75 20 97 08/18/17 14:37 76 14 97 08/18/17 14:32 78 20 08/18/17 14:30 152/78 08/18/17 14:27 79 23 08/18/17 14:22 76 21 08/18/17 14:17 73 20 97 08/18/17 14:12 73 17 97 08/18/17 14:07 75 08/18/17 14:07 79 22 94 08/18/17 13:59 95 Room Air 08/18/17 12:26 36.8 92 18 168/91 95 Room Air Physical Exam GENERAL: Awake, alert, in no acute distress HENT: Dry mucous membranes. Normocephalic, atraumatic. Oropharynx unremarkable. EYES: Normal conjunctiva. Sclera non-icteric. NECK: Supple. No nuchal rigidity. FROM. No JVD. RESPIRATORY: Clear to auscultation. CARDIAC: Regular rate, normal rhythm. Extremities warm and well perfused. Pulses equal. ABDOMEN: Mild epigastric discomfort, no peritoneal signs such as distention, rebound or guarding. No masses. RECTAL: Deferred. MUSCULOSKELETAL: Chest examination reveals no tenderness. The back is symmetrical on inspection without obvious abnormality. There is no CVA tenderness to palpation. No joint edema. LOWER EXTREMITIES: Calves are equal size bilaterally and non-tender. No edema. No discoloration. NEURO: Normal sensorium. No sensory or motor deficits noted. SKIN: No rash or jaundice noted. Medical Decision & Procedures ER Provider Diagnostic Interpretation: Radiology results as stated below per my review and radiologist interpretation: CHEST ONE VIEW PORTABLE CLINICAL HISTORY: 72 years-old Female presenting with CHEST PAIN. TECHNIQUE: Portable upright AP view of the chest was obtained. COMPARISON: 01/19/2017 and CTA from 01/20/2017. FINDINGS: Left subclavian pacer with leads to the right atrium and right ventricular apex. Atherosclerosis of aortic arch. Cardiac silhouette slightly less prominent than on prior exam. Persistent elevation of the left hemidiaphragm with left basilar linear opacities. No new focal infiltrate. No or large effusion or pneumothorax. Osseous structures normal. Upper abdomen normal. IMPRESSION: 1. No acute cardiopulmonary disease. 2. Persistent left hemidiaphragm elevation with left basilar atelectasis. Electronically signed by: William Nguyen M.D. 08/18/2017 2:13 PM Dictated Date/Time: 08/18/2017 2:11 PM Laboratory Results 08/18/17 14:27 Red Blood Count 5.11, Mean Corpuscular Volume 88.1, Mean Corpuscular Hemoglobin 27.6, Mean Corpuscular Hemoglobin Concent 31.3, Mean Platelet Volume 10.1, Neutrophils (%) (Auto) 81.6, Lymphocytes (%) (Auto) 11.7, Monocytes (%) (Auto) 5.8, Eosinophils (%) (Auto) 0.3, Basophils (%) (Auto) 0.3, Neutrophils # (Auto) 7.92, Lymphocytes # (Auto) 1.14, Monocytes # (Auto) 0.56, Eosinophils # (Auto) 0.03, Basophils # (Auto) 0.03 08/18/17 14:27 Test 08/18/17 14:27 08/18/17 16:34 White Blood Count 9.71 K/uL (4.8-10.8) Red Blood Count 5.11 M/uL (4.2-5.4) Hemoglobin 14.1 g/dL (12.0-16.0) Hematocrit 45.0 % (37-47) Mean Corpuscular Volume 88.1 fL (80-100) Mean Corpuscular Hemoglobin 27.6 pg (25-34) Mean Corpuscular Hemoglobin Concent 31.3 g/dl (32-36) Platelet Count 229 K/uL (130-400) Mean Platelet Volume 10.1 fL (7.4-10.4) Neutrophils (%) (Auto) 81.6 % Lymphocytes (%) (Auto) 11.7 % Monocytes (%) (Auto) 5.8 % Eosinophils (%) (Auto) 0.3 % Basophils (%) (Auto) 0.3 % Neutrophils # (Auto) 7.92 K/uL (1.4-6.5) Lymphocytes # (Auto) 1.14 K/uL (1.2-3.4) Monocytes # (Auto) 0.56 K/uL (0.11-0.59) Eosinophils # (Auto) 0.03 K/uL (0-0.5) Basophils # (Auto) 0.03 K/uL (0-0.2) RDW Standard Deviation 50.5 fL (36.4-46.3) RDW Coefficient of Variation 15.8 % (11.5-14.5) Immature Granulocyte % (Auto) 0.3 % Immature Granulocyte # (Auto) 0.03 K/uL (0.00-0.02) Anion Gap 7.0 mmol/L (3-11) Est Creatinine Clear Calc Drug Dose 64.3 ml/min Estimated GFR () 86.0 Estimated GFR (Non- 74.2 BUN/Creatinine Ratio 14.0 (10-20) Calcium Level 8.9 mg/dl (8.5-10.1) Total Bilirubin 0.6 mg/dl (0.2-1) Direct Bilirubin 0.1 mg/dl (0-0.2) Aspartate Amino Transf (AST/SGOT) 10 U/L (15-37) Alanine Aminotransferase (ALT/SGPT) 14 U/L (12-78) Alkaline Phosphatase 94 U/L (45-117) Total Protein 8.3 gm/dl (6.4-8.2) Albumin 3.9 gm/dl (3.4-5.0) Lipase 171 U/L (73-393) Troponin I < 0.015 ng/ml (0-0.045) Laboratory results reviewed by me Medications Administered Medications (Trade) Dose Ordered Sig/Barb Route Start Time Stop Time Status Last Admin Dose Admin Famotidine (Pepcid 20mg Iv Push) 20 mg NOW STAT IV 08/18/17 13:48 08/18/17 13:56 DC 08/18/17 14:32 20 MG Miscellaneous Medication (Gi Cocktail) 24 ml NOW STAT PO 08/18/17 13:48 08/18/17 13:56 DC 08/18/17 13:48 24 ML Sodium Chloride 1,000 ml @ 999 mls/hr Q1H1M STAT IV 08/18/17 13:48 08/18/17 14:48 DC 08/18/17 14:32 999 MLS/HR Al Hydroxide/Mg Hydroxide (Maalox Susp) 30 ml STK-MED ONCE .ROUTE 08/18/17 14:08 08/18/17 14:09 DC 08/18/17 14:32 30 ML Lidocaine HCl (Viscous Lidocaine 2% Soln) 20 ml STK-MED ONCE .ROUTE 08/18/17 14:08 08/18/17 14:09 DC 08/18/17 14:32 20 ML ECG Indication: SOB/dyspnea Rate (beats per minute): 92 Rhythm: sinus rhythm (with fusion complexes) Findings: RBBB, no acute ischemic change, other (normal axis) Change: no significant change ED Course 1335: The patient was evaluated in room B5. A complete history and physical exam was performed. 1538: I reevaluated the patient, who was resting. I discussed some test findings with her and she verbalized complete understanding. 1618: I reevaluated the patient and she is resting. Ordered a second troponin. 1641: Discussed with [employer] who said the patient's pace maker could use a little adjustment because it is sensing some ventricular beats which interpret as atrial differential, subsequently pacing her which may explain her symptoms. 1722: The patient's second troponin was normal. I reevaluated the patient and updated her on test findings and the treatment plan. The patient verbalized complete understanding and agreement. She states she is feeling significantly better. The patient was discharged home. Medical Decision I reviewed the patient's past medical history, medications, and the nursing notes as described above. The patient's presentation and history were concerning for ACS, CHF, PE, dissection, gastritis, peptic ulcer, and reflux. The patient is a 72-year-old woman with a past medical history of heart block status post pacemaker presents emergency Department with symptoms of chest pain and palpitations per hpi. On arrival the patient is in no acute distress, afebrile stable vital signs. Troponin negative in the setting of constant symptoms since this morning. EKG without any signs of ischemia. Chest x-ray unremarkable. WBC within normal limits. Pacer was interrogated and demonstrated improper sensing where the machine interpreted ventricular beats as A. fib caused improper pacing. [employer] digital camera technician at the bedside and reprogrammed PPM, increasing sensitivity with good effect. She reports symptoms entirely resolved after this adjustment. Second delta 2 hour troponin negative. Unlikely ACS. Findings and plan for follow-up reviewed with patient. Patient agreeable and d/c'd per discharge instructions. Medication Reconcilliation Current Medication List: was personally reviewed by me Consults Time Called: 1640 Consulting Physician: [employer] Returned Call: [phone] Discussed with [employer] who said the patient's pace maker could use a little adjustment because it is sensing some ventricular beats which interpret as atrial differential, subsequently pacing her which may explain her symptoms. Impression Primary Impression: Substernal chest pain Additional Impression: Pacemaker reprogramming/check Scribe Attestation The scribe's documentation has been prepared under my direction and personally reviewed by me in its entirety. I confirm that the note above accurately reflects all work, treatment, procedures, and medical decision making performed by me. Departure Information Dispostion Home / Self-Care Referrals Hannah Marshall, C.R.N.P (PCP) Forms HOME CARE DOCUMENTATION FORM, IMPORTANT VISIT INFORMATION Patient Instructions Chest Pain - [facility], ED Pacemaker Malfunction, [facility] Additional Instructions Please follow up with your primary care physician in the next 1-3 days for re- evaluation. Your symptoms were most likely abnormal pacing from your pacemaker. This was reprogrammed and your symptoms resolved. Otherwise, your exam, EKG, chest xray, and lab results did not show signs of an emergent condition at this time. Return to the emergency department for worsening symptoms as described in the accompanying instructions. Problem Qualifiers
[2017-08-18] MEDS ORDERED: LIDOCAINE HCL 2% VISC SOLN 20 ML UDC ONE (14:08)
[2017-08-18] MEDS ORDERED: ALUMINUM/MAGNESIUM SUSP 30 ML UDC ONE (14:08)
--- NOTE | 2017-08-18 14:14 | DIAGNOSTIC IMAGING REPORT ---
CHEST ONE VIEW PORTABLE CLINICAL HISTORY: 72 years-old Female presenting with CHEST PAIN. TECHNIQUE: Portable upright AP view of the chest was obtained. COMPARISON: 01/19/2017 and CTA from 01/20/2017. FINDINGS: Left subclavian pacer with leads to the right atrium and right ventricular apex. Atherosclerosis of aortic arch. Cardiac silhouette slightly less prominent than on prior exam. Persistent elevation of the left hemidiaphragm with left basilar linear opacities. No new focal infiltrate. No or large effusion or pneumothorax. Osseous structures normal. Upper abdomen normal. IMPRESSION: 1. No acute cardiopulmonary disease. 2. Persistent left hemidiaphragm elevation with left basilar atelectasis. Electronically signed by: William Nguyen M.D. 08/18/2017 2:13 PM Dictated Date/Time: 08/18/2017 2:11 PM
[2017-08-18 14:45] LABS: BASO % 0.3 %; BASO ABS # 0.03 K/uL (0-0.2); EOS % 0.3 %; EOS ABS # 0.03 K/uL (0-0.5); HEMOGLOBIN 14.1 g/dL (12.0-16.0); IG# 0.03 K/uL (0.00-0.02); LYMPH % 11.7 %; LYMPH ABS # 1.14 K/uL (1.2-3.4); MEAN CELL VOLUME 88.1 fL (80-100); MEAN CORPUSCULAR HEMOGLOBIN 27.6 pg (25-34); MEAN CORPUSCULAR HGB CONC 31.3 g/dl (32-36); MEAN PLATELET VOLUME 10.1 fL (7.4-10.4); MONO % 5.8 %; MONO ABS # 0.56 K/uL (0.11-0.59); NEUT % 81.6 %; NEUT ABS # 7.92 K/uL (1.4-6.5); PLATELET COUNT 229 K/uL (130-400); RED CELL DISTRIBUTION WIDTH CV 15.8 % (11.5-14.5); RED CELL DISTRIBUTION WIDTH SD 50.5 fL (36.4-46.3); WHITE BLOOD COUNT 9.71 K/uL (4.8-10.8)
[2017-08-18 15:18] LABS: ALBUMIN 3.9 gm/dl (3.4-5.0); ALKALINE PHOSPHATASE 94 U/L (45-117); ALT/SGPT 14 U/L (12-78); AST/SGOT 10 U/L (15-37); BLOOD UREA NITROGEN 11 mg/dl (7-18); CALCIUM 8.9 mg/dl (8.5-10.1); CARBON DIOXIDE 27 mmol/L (21-32); GLUCOSE 100 mg/dl (70-99); LIPASE 171 U/L (73-393); POTASSIUM 3.9 mmol/L (3.5-5.1); SODIUM 139 mmol/L (136-145); TOTAL PROTEIN 8.3 gm/dl (6.4-8.2)
[2017-08-18] MEDS ORDERED: FLUT0.15 NAE (15:40)
[2017-08-18 18:21] VITALS: BP 139/79; PULSE 83; O2SAT 92
== END 2017-08-18 18:37 | disposition home or self-care (01) ==
LOC: C.EDB 12:24
DX: R07.2 Precordial pain (principal); Z45.018 Encounter for adjustment and management of other part of cardiac pacemaker; I45.10 Unspecified right bundle-branch block; J45.909 Unspecified asthma, uncomplicated; K57.90 Diverticulosis of intestine, part unspecified, without perforation or abscess without bleeding; I10 Essential (primary) hypertension; M51.36 Other intervertebral disc degeneration, lumbar region; M51.37 Other intervertebral disc degeneration, lumbosacral region; H35.30 Unspecified macular degeneration; M81.0 Age-related osteoporosis without current pathological fracture; K21.9 Gastro-esophageal reflux disease without esophagitis; Z86.711 Personal history of pulmonary embolism; Z86.718 Personal history of other venous thrombosis and embolism; Z95.0 Presence of cardiac pacemaker; Z96.659 Presence of unspecified artificial knee joint; Z83.3 Family history of diabetes mellitus; Z82.49 Family history of ischemic heart disease and other diseases of the circulatory system

== ENCOUNTER → 2017-10-31 | Outpatient (CLI) | payer OTHER ==
[~2017-10-31] MED LIST changes: -AMIO200T4 PO; +FLUT0.15 NAE; +RANI150T85 PO; -VLTG EXT; -ZNTT/150 PO
[2017-10-31 14:44] LABS: BLOOD UREA NITROGEN 13 mg/dl (7-18); CALCIUM 8.4 mg/dl (8.5-10.1); CARBON DIOXIDE 27 mmol/L (21-32); CREATININE 0.76 mg/dl (0.60-1.20); GLUCOSE 91 mg/dl (70-99); POTASSIUM 3.9 mmol/L (3.5-5.1); SODIUM 140 mmol/L (136-145)
== END | disposition home or self-care (01) ==
LOC: C.LABPVFM 10:43
PROVIDERS: ATTEND Nurse Practitioner
DX: R25.1 Tremor, unspecified (principal); I10 Essential (primary) hypertension

== ENCOUNTER → 2017-11-21 | Outpatient (CLI) | payer OTHER | END | disposition home or self-care (01) | LOC: C.LABPVFM 08:08 | PROVIDERS: ATTEND Nurse Practitioner | DX: E83.41 Hypermagnesemia (principal) ==

== ENCOUNTER 2019-01-27 15:35 | Inpatient (IN) ==
[2019-01-27] MEDS ORDERED: ONDANSETRON INJ 2 MG/ML 2 ML VIAL IV STA (16:10)
[2019-01-27] MEDS ORDERED: ACETAMINOPHEN 325 MG TAB PO STA (16:14)
[2019-01-27] MEDS ORDERED: SODIUM CHLORIDE 0.9% 1000ML 1,000 ML IV SCH (16:15)
[2019-01-27 16:39] LABS: Basophils # (auto) 0.01 K/uL (0-0.2); Basophils % (auto) 0.1 %; Eosinophils # (auto) 0.04 K/uL (0-0.5); Eosinophils % (auto) 0.5 %; Hematocrit (blood only) 44.5 % (37-47); Immature Granulocytes # (auto) 0.01 K/uL (0.00-0.02); Immature Granulocytes % (auto) 0.1 %; Lymphocytes # (auto) 0.36 K/uL (1.2-3.4); Lymphocytes % (auto) 4.2 %; Mean Corpuscular Hgb Conc 31.5 g/dL (32-36); Mean Corpuscular Volume 85.9 fL (80-100); Mean Platelet Volume 9.8 fL (7.4-10.4); Monocytes # (auto) 0.39 K/uL (0.11-0.59); Monocytes % (auto) 4.6 %; Neutrophils # (auto) 7.67 K/uL (1.4-6.5); Neutrophils % (auto) 90.5 %; Platelet Count 193 K/uL (130-400); RDW Coefficient of Variation 15.6 % (11.5-14.5); Red Blood Count 5.18 M/uL (4.2-5.4); White Blood Count 8.48 K/uL (4.8-10.8)
--- NOTE | 2019-01-27 16:40 | XRay Report ---
XR chest 1V portable CLINICAL HISTORY: Chest pain with cough. COMPARISON STUDY: Chest radiograph August 18, 2017. FINDINGS: A dual lead left pacemaker is in place. There is no pneumothorax or pleural effusion. Blunt ing of the left costophrenic angle is chronic. Left basilar opacity suggests atelectasis. Cardiac siz e is normal. Mediastinal contours are normal. There may be calcific tendinitis of the right rotator c uff. IMPRESSION: No acute cardiopulmonary findings. No change in appearance of the chest. Electronically signed by: Doug Schuler M.D. 01/27/2019 4:39 PM
[2019-01-27 16:56] LABS: Alanine Aminotransferase 16 U/L (12-78); Aspartate Aminotransferase 13 U/L (15-37); BUN Creatinine Ratio 18.4 (10-20); Blood Urea Nitrogen 15 mg/dl (7-18); Calcium 8.5 mg/dl (8.5-10.1); Carbon Dioxide 26 mmol/L (21-32); Chloride 106 mmol/L (98-107); Creatinine Clr Calc Pharmacy 61.3 ml/min; Est GFR (African American) 81.7; Est GFR (Non-African American) 70.4; Glucose 102 mg/dl (70-99); Potassium 4.3 mmol/L (3.5-5.1); Sodium 140 mmol/L (136-145)
[2019-01-27 17:01] LABS: Alkaline Phosphatase 109 U/L (45-117); Bilirubin,Total 0.6 mg/dl (0.2-1); Globulin 3.9 gm/dl (2.5-4.0); Total Protein 7.9 gm/dl (6.4-8.2); Troponin I < 0.015 ng/ml (0-0.045)
[2019-01-27] MEDS ORDERED: IOVERSOL 100ml IV PRN (17:40)
[2019-01-27 17:54] LABS: Appearance Urine Clear (Clear); Bilirubin Urine Negative (Negative); Blood Urine Negative (Negative); Color Urine Yellow; Glucose Urine UA Negative (Negative); Ketones Urine Negative (Negative); Leukocyte Esterase Urine Negative (Negative); Nitrite Urine Negative (Negative); Protein Urine Negative (Negative); Urobilinogen Urine Negative (Negative); pH Urine 7.5 (4.5-7.5)
--- NOTE | 2019-01-27 18:21 | CT Scan Report ---
CT OF THE ABDOMEN AND PELVIS WITH CONTRAST CLINICAL HISTORY: Left lower quadrant abdominal pain. COMPARISON STUDY: CT of the abdomen and pelvis November 16, 2016. Abdominal ultrasound December 23, 2016. TECHNIQUE: Following IV administration of 93 mL of Optiray-320, axial images of the abdomen and pelvi s were obtained from the lung bases to the proximal femurs. Images were reviewed in the axial, sagitt al, and coronal planes. IV contrast was administered without complication. Automated exposure contro l was utilized for the study. A dose lowering technique was utilized adhering to the principles of A DEE DEE. CT DOSE: 878.54 mGycm FINDINGS: Left basilar atelectasis is noted. There is no biliary ductal dilatation status post cholec ystectomy. There is no peripancreatic infiltration. There is no pancreatic ductal dilatation. The spl een, adrenal glands and kidneys are unremarkable. There is a slight swirling appearance of the mesent frank with minimal mesenteric infiltration. A left groin hernia, possibly femoral, contains a small bow el loop. This does not result in a bowel obstruction. A few loops of mildly dilated small bowel are n oted that measure up to 3 mm in caliber. A definite transition point is not identified. There is a pr evious ventral hernia repair with mesh. No pneumatosis, free air or portal venous gas is present. The re is sigmoid diverticulosis without evidence for acute diverticulitis. Hardware within the proximal right femur is noted from internal fixation. IMPRESSION: 1. A few loops of mildly dilated small bowel without definite transition point. The findings may refl ect an enteritis or partial small bowel obstruction. Slight swirling of the mesentery with minimal me senteric infiltration, a finding of questionable significance 2. Left groin hernia, possibly femoral which contains a small bowel loop. This does not result in a b owel obstruction. Electronically signed by: Doug Schuler M.D. 01/27/2019 6:20 PM
[2019-01-27] MEDS ORDERED: SODIUM CHLORIDE 0.9% 500 ML IV ONE (19:34)
--- NOTE | 2019-01-27 20:44 | History & Physical Report ---
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 IN ED, VSS, CBC unremarkable, electrolyte wnl, LFTS unremarkable, elevated Lipase 519 , neg UA, CXR unremarkable, CT abdomen showing findings of mildy dilated small bowel suggestive of either enteritis or SBO per radiology report in addition to finding of Left groin hernia containing a small bowel loop without evidence of obstruction. -Abdominal discomfort, diarrhea likely secondary to enteritis which would consistent with imaging however given history of SBO, CT evidence mesenteric swishing, recurrence SBO could not be ruled out - Admit to Med. Surg - Make NPO - IV NS at 100 - Gastroenterology consulted - PRN Zofran, - PPI (2) Diarrhea: as above (3) Elevated lipase: low suspicion for pancreatitis given level of lipase, though considered likely acute phase reactant. IV fluids as above (4) Left groin hernia: Per CT abdomen, does not appear to be source of obstruction no evidence of strangulation Continue to monitor (5) Hypertension: BP controlled (6) Chronic reflux esophagitis: PPI (7) Benign positional vertigo: Meclizine held asx at present (8) Chronic anticoagulation: Continue Prodaxa, placed on anticoagulation following pacemaker placement (9) Asthma: continue home inh ( combivent) History of Present Illness Chief Complaint: LLQ pain, Diarrhea Primary Care Provider: SUNNI Felipe 73 yo F with history of complete heart block s/p pacer,previous h/o cardiac tamponade secondary to RV perforation following pacer placement, Asthma, SBO (1998) Hernia ( 3 years ago), Hypertension, degenerative disc disease, osteoporosis presenting with diarrhea, abdominal discomfort. Patient reports she woke 6 am with diarrhea ( 5-6 x), watery, no obvious blood, intermittent abdominal discomfort, lasting hrs. LLQ, Left groin . She tried "Charcoal gas" which gave her some relief however subsequently she felt bulge in left lower quadrant. She also report chills, n/v, lightheadedness. The evening before symptoms started , she reports she ate a cheeseburger a [place] [employer]. Her family had same food, but did not get similar symptoms. In the ED, Patient arrived afebrile, VSS, CBC unremarkable, electrolyte wnl, LFTS unremarkable, elevated Lipase 519 , neg UA, CXR unremarkable, CT abdomen showing findings of mildly dilated small bowel suggestive of either enteritis or SBO per radiology report in addition to finding of Left groin hernia containing a small bowel loop without evidence of obstruction. Allergies Allergy/AdvReac Type Severity Reaction Status Date / Time camphor Allergy Unknown SHORTNESS Unverified 01/27/19 16:56 OF BREATH eucalyptus Allergy Unknown SHORTNESS Unverified 01/27/19 16:56 OF BREATH menthol Allergy Unknown SHORTNESS Unverified 01/27/19 16:56 OF BREATH petrolatum,white Allergy Unknown Unverified 01/27/19 16:56 [From Vicks Vaporub] turpentine oil Allergy Unknown Unverified 01/27/19 16:56 [From Vicks Vaporub] aspirin AdvReac Mild ABD. PAIN Verified 01/27/19 16:56 AND VOMITING Home Medications Home Medications Medication Instructions Recorded Confirmed Type Combivent Respimat 1 puff INHALATION QID 01/27/19 02/04/19 History Ocuvite Eye Health 1 tab PO QAM 01/27/19 02/04/19 History Pradaxa 150 mg PO BID 01/27/19 02/04/19 History calcium carbonate-vitamin D3 1 tab PO QAM 01/27/19 02/04/19 History [Calcium 500 + D] cholecalciferol (vitamin D3) 2,000 unit PO BID 01/27/19 02/04/19 History [Vitamin D3] fluticasone propionate [Flonase 1 spray INTRANASAL Q2D 01/27/19 02/04/19 History Allergy Relief] lidocaine HCl 1 applic TOPICAL Q12 01/27/19 02/04/19 History meclizine 25 mg PO TID PRN 01/27/19 02/04/19 History nitroglycerin [Nitrostat] 0.4 mg SUBLINGUAL UD PRN 01/27/19 02/04/19 History nystatin 1 applic TOPICAL TID 01/27/19 02/04/19 History pantoprazole 40 mg PO DAILYBB 01/27/19 02/04/19 History ranitidine HCl 150 mg PO BID 01/27/19 02/04/19 History oxycodone-acetaminophen [Percocet] 1 tab PO Q4H PRN #15 tab 01/31/19 02/04/19 Rx fluticasone propion-salmeterol 1 puffs INH BID #60 ea 02/02/19 02/04/19 Rx [Advair Diskus] ondansetron HCl [Zofran] 4 mg PO Q6H PRN #14 tab 02/02/19 02/04/19 Rx acetaminophen 325 mg capsule See Rx Instructions PO Q4H PRN 02/04/19 02/04/19 History docusate sodium 100 mg capsule 100 mg PO .COMPLEX cap 02/04/19 History mupirocin 2 % topical ointment 1 appln TOP .COMPLEX 02/04/19 02/04/19 History Past Med/Surg History Medical History Left groin hernia Vitamin D deficiency (Acute) Tremor (Acute) Tinea corporis (Acute) Osteoporosis (Acute) Oral thrush (Acute) Legally blind (Acute) Hypertension (Acute) Hypermagnesemia (Acute) Gait instability (Acute) Encounter for long-term (current) use of medications (Acute) Chronic reflux esophagitis (Acute) Chronic obstructive pulmonary disease (Acute) Benign positional vertigo (Acute) BMI 34.0-34.9,adult (Acute) Dehydration (Resolved) Vertigo (Resolved) Vertigo (Resolved) Nausea (Resolved) Loss of consciousness (Resolved 03/17/14) Nasal bone fracture (Resolved 03/17/14) Nasal bone fracture (Resolved) Loss of consciousness (Resolved) Vertigo (Resolved) Right foot sprain (Acute) Left calcaneal fracture (Acute) LLQ abdominal pain (Acute) Pulmonary emboli Infected wound DVT (deep venous thrombosis) Dizziness (Acute) Complete heart block (Resolved) Diverticulosis (Chronic) Chest discomfort Cardiac tamponade after RV perforation during pacemaker placement, now resolved Complete heart block now has pacemaker Surgical History Pacemaker (Chronic) Family History Other Diabetes Hypertension Social History Preferred Language: Malian Communication Ability: Effective Beliefs That Will Affect Care: None Current Living Situation: Alone Feels Safe at Home: Yes Smoking Status: Never smoker Hx Alcohol Use: Yes Alcohol type: hard liquor Hx Substance Use: No Review of Systems Review of Systems: All systems reviewed & are unremarkable except as noted in HPI & below Physical Exam Physical Exam: GENERAL APPEARANCE: alert and cooperative, and appears to be in no acute distress. HEAD: normocephalic. EYES: PERRL, EOMI, vision significantly impaired EARS: hearing grossly intact. NOSE: No nasal discharge. NECK: Neck supple, non-tender without lymphadenopathy CARDIAC: Normal S1 and S2. No S3, S4 or murmurs. Rhythm is regular LUNGS: Clear to auscultation and percussion without rales, rhonchi, wheezing or diminished breath sounds. ABDOMEN: Positive bowel sounds. Soft,LLQ tenderness to palpation, no rebound no guarding LOWER EXTREMITY: no edema NEUROLOGICAL: CN II-XII grossly intact. Strength and sensation symmetric and grossly intact throughout. SKIN: Skin normal color, texture and turgor with no lesions or eruptions. Results & Data Vital Signs (Past 12 Hours) Vital Signs Temp Pulse Pulse Resp BP BP Pulse Ox 01/27/19 18:00 98 H 20 132/75 96 01/27/19 15:43 37.1 C 107 H 17 152/88 H 96 Code Status & VTE Plan Code Status DNR VTE Prophylaxis Plan VTE Prophylaxis will be ordered: No Reason for no VTE drug order: Treatment not indicated (already on anticoagulation therapy) Supervising Physician Co-Signing Physician Notes Attending addendum: I have physically seen this patient, have supervised the medical residents activities, and agree with the H&P unless as otherwise noted. Assessment and Plan: Enteritis/ileus versus early PSBO-- NPO. NSS at 100 mils per hour. Zofran 4 mg IV every 6 hours PRN. Famotidine 20 mg IV every 12 hours. Consult GI Remainder of orders and notations as noted. Resident Activity Tracking Resident Involvement: Resident Care Provided Care Provided: Adult Hospital Medicine (1) Abdominal pain Abdominal location: unspecified location Qualified Code(s): R10.9 - Unspecified abdominal pain
[2019-01-27] MEDS ORDERED: ONDANSETRON INJ 2 MG/ML 2 ML VIAL IV PRN (22:17)
[2019-01-27] MEDS: SODIUM CHLORIDE 0.9% 1000ML 1,000 ML IV SCH (22:50)
--- NOTE | 2019-01-27 23:02 | Emergency Department Note ---
Entered by Cheri Quinteros acting as a scribe for Jamin Hernandez DO History of Present Illness General Chief complaint: Groin Pain Stated complaint: PAIN IN LEFT SIDED GROIN AREA, VOMITING, DIARHEA Source: patient History of Present Illness Provider complaint: weakness Onset (ago): hour(s) (this morning) Location: head Pain Consistency: + other (episode) Maximum Pain Intensity: 5 Quality: + other (weakness) Exacerbated By: not by movement Associated symptoms: + chest pain (left sided ), + cough, + nausea/vomiting and + other (+diarrhea, +pain in groin, -vertigo); no shortness of breath and no syncope The patient is a 73 year old female who presents to the Emergency Room with complaints of an episode of weakness. The patient stats that she woke up this m orning and was feeling weak and lightheaded. She states that she was experiencing nausea, vomiting, diarrhea. She reports that she vomited once this morning and had diarrhea episodes 12 times this morning. The patient states that her symptoms slowed down at 1300 today. She denies any vertigo. She states that she has had a cough for 2 months and a lump in her left lower quadrant that hurts when she coughs. She reports that when she coughs she also experiences pain in her left chest that started 2 weeks ago. She denies any shortness of breath when she walks around or any pain. She denies any loss of consciousness. The patient states that she has a mass in her groin that hurts when she urinat es. She states that she noticed this several days ago. The patient notes that her has a pacemaker. Home Medications Home Medications Medication Instructions Recorded Confirmed Type calcium carbonate-vitamin D3 1 tab PO QAM 01/27/19 01/27/19 History [Calcium 500 + D] cholecalciferol (vitamin D3) 2,000 unit PO BID 01/27/19 01/27/19 History [Vitamin D3] dabigatran etexilate [Pradaxa] 150 mg PO BID 01/27/19 01/27/19 History docusate sodium 100 mg PO QAM 01/27/19 01/27/19 History docusate sodium 200 mg PO HS 01/27/19 01/27/19 History fluticasone propionate [Flonase 1 spray INTRANASAL Q2D 01/27/19 01/27/19 History Allergy Relief] ipratropium-albuterol [Combivent 1 puff INHALATION QID 01/27/19 01/27/19 History Respimat] lidocaine HCl 1 applic TOPICAL Q12 01/27/19 01/27/19 History meclizine 25 mg PO TID PRN 01/27/19 01/27/19 History nitroglycerin [Nitrostat] 0.4 mg SUBLINGUAL UD PRN 01/27/19 01/27/19 History nystatin 1 applic TOPICAL TID 01/27/19 01/27/19 History pantoprazole 40 mg PO DAILYBB 01/27/19 01/27/19 History ranitidine HCl 150 mg PO BID 01/27/19 01/27/19 History vit C-E-zinc xfl-[id number] 1 tab PO QAM 01/27/19 01/27/19 History [[facility] [place]] Allergies Allergy/AdvReac Type Severity Reaction Status Date / Time camphor Allergy Unknown SHORTNESS Unverified 01/27/19 16:56 OF BREATH eucalyptus Allergy Unknown SHORTNESS Unverified 01/27/19 16:56 OF BREATH menthol Allergy Unknown SHORTNESS Unverified 01/27/19 16:56 OF BREATH petrolatum,white Allergy Unknown Unverified 01/27/19 16:56 [From [facility]] turpentine oil Allergy Unknown Unverified 01/27/19 16:56 [From [facility]] aspirin AdvReac Mild ABD. PAIN Verified 01/27/19 16:56 AND VOMITING Past Med/Surg History Medical History Vitamin D deficiency (Acute) Tremor (Acute) Tinea corporis (Acute) Osteoporosis (Acute) Oral thrush (Acute) Legally blind (Acute) Hypertension (Acute) Hypermagnesemia (Acute) Gait instability (Acute) Encounter for long-term (current) use of medications (Acute) Chronic reflux esophagitis (Acute) Chronic obstructive pulmonary disease (Acute) Benign positional vertigo (Acute) BMI 34.0-34.9,adult (Acute) Dehydration (Resolved) Vertigo (Resolved) Vertigo (Resolved) Nausea (Resolved) Loss of consciousness (Resolved 03/17/14) Nasal bone fracture (Resolved 03/17/14) Nasal bone fracture (Resolved) Loss of consciousness (Resolved) Vertigo (Resolved) Pacemaker (Chronic) Right foot sprain (Acute) Left calcaneal fracture (Acute) LLQ abdominal pain (Acute) Pulmonary emboli Infected wound DVT (deep venous thrombosis) Dizziness (Acute) Complete heart block (Resolved) Diverticulosis (Chronic) Chest discomfort Family History Other Diabetes Hypertension Social History Preferred Language: Spanish Communication Ability: Effective Preschool Principal Required: No Beliefs That Will Affect Care: None Current Living Situation: Alone Other Information That Helps Us Care for You: No Feels Safe at Home: Yes Safety Concerns: Feels Safe At This Time Smoking Status: Never smoker Do You Dip or Chew Tobacco: No Hx Alcohol Use: Yes Alcohol type: hard liquor Hx Substance Use: No Review of Systems See HPI for pertinent positives & negatives. and A total of 10 systems reviewed and were otherwise negative Physical Exam Vital Signs Vital Signs - 24 hr 01/27/19 15:43 01/27/19 18:00 01/27/19 20:00 Temperature 37.1 C Temperature Source Oral Sepsis Recent Fever Within 48 Hours No Sepsis New/Unexplained Change in Mental Status No Sepsis Action Taken by Nursing No Action Required Pulse Rate 107 H Pulse Rate [Left Finger] 98 H 96 H Pulse Rhythm [Left Finger] Regular Regular Pulse Strength [Left Finger] Normal Normal Respiratory Rate 17 20 18 Respiratory Effort / Characteristics Non-Labored Non-Labored Non-Labored Spontaneous Respiratory Depth Normal Normal Normal Respiratory Pattern Regular Regular Blood Pressure 152/88 H Blood Pressure [Right Arm] 132/75 132/80 Blood Pressure Mean 109 Blood Pressure Mean [Right Arm] 94 97 Blood Pressure Position Sitting Pulse Oximetry 96 96 97 Oxygen Delivery Method Room Air Room Air Room Air GENERAL: sitting up in bed, disheveled EYE EXAM: normal conjunctiva, PERRL and EOM's grossly intact OROPHARYNX: no exudate, no erythema, lips, buccal mucosa, and tongue normal and mucous membranes are moist NECK: supple, no nuchal rigidity, no adenopathy, non-tender LUNGS: Clear to auscultation. Normal chest wall mechanics HEART: pacemaker located in left upper chest wall, acute reproducible left of sternal chest pain between ribs 2 and 4 same as stated complaint, no murmurs, S1 normal and S2 normal ABDOMEN: abdomen soft, mild tenderness in left lower quadrant, normo-active bowel sounds, no masses, no rebound or guarding. : normal external genitalia, small protrusion posterior wall in vagina with pink mucosa. BACK: Back is symmetrical on inspection and there is no deformity, no midline tenderness, no CVA tenderness. SKIN: no rashes and no bruising UPPER EXTREMITIES: upper extremities are grossly normal. LOWER EXTREMITIES: calves are equal bilaterally NEURO EXAM: Normal sensorium, cranial nerves II-XII intact, normal speech, no weakness of arms, no weakness of legs. No drift. Finger to nose intact. Gross sensation intact. Course 1601: The patient was evaluated in room C11B, and a complete history and physical examination were performed. 1934: I [facility] the [facility] He will evaluate the patient for further management. Consultations [facility] Time: 19:35 Administered Medications Sodium Chloride (Nss 1000ml) 1,000 mls @ 125 mls/hr IV .Q8H YOHANA Stop: 02/26/19 22:59 Last Admin: 01/27/19 22:50 Dose: 125 mls/hr Documented by: [id number] Ioversol (Optiray 320 100ml) 93 ml IV ONCE PRN PRN Reason: Interaction Checking Stop: 01/31/19 17:39 Last Admin: 01/27/19 17:40 Dose: 93 ml Documented by: [id number] Discontinued Medications Acetaminophen (Tylenol) 650 mg PO NOW STA Stop: 01/27/19 16:15 Last Admin: 01/27/19 16:48 Dose: 650 mg Documented by: [id number] Sodium Chloride (Nss 1000ml) 1,000 mls @ 999 mls/hr IV .Q1H1M YOHANA Stop: 01/27/19 17:15 Last Infusion: 01/27/19 17:45 Dose: 0 mls/hr Documented by: [id number] Admin: 01/27/19 16:48 Dose: 999 mls/hr Documented by: [id number] Sodium Chloride (Nss) 500 mls @ 999 mls/hr IV .Q31M ONE Stop: 01/27/19 20:04 Last Infusion: 01/27/19 21:40 Dose: 0 mls/hr Documented by: [id number] Admin: 01/27/19 20:55 Dose: 999 mls/hr Documented by: [id number] Ondansetron HCl (Zofran) 4 mg IV NOW STA Stop: 01/27/19 16:11 Last Admin: 01/27/19 16:48 Dose: 4 mg Documented by: [id number] Medical Decision Making Differential Diagnosis Differential diagnosis: Etiologies such as appendicitis, diverticulitis, PUD, biliary pathology, UTI, pancreatitis, obstruction, mesenteric ischemia, aortic pathology, infections, inflammatory bowel disease, renal colic, as well as others were entertained. Medical Records Attestation: I reviewed the patient's medical records. Home Medications Current Medication List: was personally reviewed by me Laboratory Data Attestation: I reviewed the patient's lab results. Result diagrams: 01/27/19 16:23 01/27/19 16:23 Lab Results 01/27/19 01/27/19 01/27/19 Range/Units 16:23 16:23 17:45 WBC 8.48 (4.8-10.8) K/uL RBC 5.18 (4.2-5.4) M/uL Hgb 14.0 (12.0-16.0) g/dL Hct 44.5 (37-47) % MCV 85.9 (80-100) fL MCH 27.0 (25-34) pg MCHC 31.5 L (32-36) g/dL RDW Std Deviation 50.0 H (36.4-46.3) fL RDW Coeff of [place] 15.6 H (11.5-14.5) % Plt Count 193 (130-400) K/uL MPV 9.8 (7.4-10.4) fL Immature Gran % (Auto) 0.1 % Neut % (Auto) 90.5 % Lymph % (Auto) 4.2 % [place] % (Auto) 4.6 % Eos % (Auto) 0.5 % Baso % (Auto) 0.1 % Immature Gran # (Auto) 0.01 (0.00-0.02) K/uL Neut # (Auto) 7.67 H (1.4-6.5) K/uL Lymph # (Auto) 0.36 L (1.2-3.4) K/uL [place] # (Auto) 0.39 (0.11-0.59) K/uL Eos # (Auto) 0.04 (0-0.5) K/uL Baso # (Auto) 0.01 (0-0.2) K/uL Sodium 140 (136-145) mmol/L Potassium 4.3 (3.5-5.1) mmol/L Chloride 106 (98-107) mmol/L Carbon Dioxide 26 (21-32) mmol/L Anion Gap 8.0 (3-11) BUN 15 (7-18) mg/dl Creatinine 0.83 (0.6-1.2) mg/dl Est Cr Clr Drug Dosing 61.3 ml/min Est GFR ( Amer) 81.7 Est GFR (Non-Af Amer) 70.4 BUN/Creatinine Ratio 18.4 (10-20) Glucose 102 H (70-99) mg/dl Calcium 8.5 (8.5-10.1) mg/dl Total Bilirubin 0.6 (0.2-1) mg/dl AST 13 L (15-37) U/L ALT 16 (12-78) U/L Alkaline Phosphatase 109 (45-117) U/L Troponin I < 0.015 (0-0.045) ng/ml Total Protein 7.9 (6.4-8.2) gm/dl Albumin 4.0 (3.4-5.0) gm/dl Globulin 3.9 (2.5-4.0) gm/dl Albumin/Globulin Ratio 1.0 (0.9-2) Lipase 519 H (73-393) U/L Urine Color Yellow Urine Appearance Clear (Clear) Urine pH 7.5 (4.5-7.5) Ur Specific [place] 1.010 (1.000-1.030) Urine Protein Negative (Negative) Urine Glucose (UA) Negative (Negative) Urine Ketones Negative (Negative) Urine Blood Negative (Negative) Urine Nitrite Negative (Negative) Urine Bilirubin Negative (Negative) Urine Urobilinogen Negative (Negative) Ur Leukocyte Esterase Negative (Negative) ECG Data Attestation: I personally reviewed and interpreted this ECG as follows: Indication: chest pain Rate (beats per minute): 101 Rhythm: sinus tachycardia Findings: + other (normal axis, poor baseline), + RBBB and + T-wave inversion (lead 3) Comparison ECG Date: from (08/18/17) Change: no significant change Blood Pressure Blood Pressure Findings: Normal blood pressure MDM Narrative Patient is a 73-year-old female who presents the ER for abdominal pain associate with nausea vomiting diarrhea. IV was established blood work is obtained showed no significant leukocytosis or anemia. BMP with LFTs bilirubin lipase and troponin was remarkable for a lipase of 519. UA was unremarkable. Chest x-ray was unremarkable. CT abdomen pelvis showed a questionable small bowel obstruction versus enteritis. There is also some mesenteric swelling. Based on this patient was updated bedside. Discussed with the hospitalist the patient will be observed overnight. Of note patient was given IV fluids, Zofran and remained stable while in the ER. Impression & Plan Abdominal pain, SBO (small bowel obstruction) Discharge Plan Visit Data *Final* Discharge Date/Time: 01/27/19 21:08 Chief Complaint: Groin Pain Stated Complaint: PAIN IN LEFT SIDED GROIN AREA, VOMITING, DIARHEA ED Provider: Jamin Hernandez Discharge Problem: Abdominal pain, SBO (small bowel obstruction) Patient Disposition: Admitted As Inpatient Discharge Instructions Interventions: ED Discharge Assessment Last Done: 01/27/19 21:08 Discharge Problem: Abdominal pain Qualifiers: Abdominal location: unspecified location Qualified Code(s): R10.9 - Unspecified abdominal pain The scribe's documentation has been prepared under my direction and personally reviewed by me in its entirety. I confirm that the note above accurately reflects all work, treatment, procedures, and medical decision making performed by me.
[2019-01-28] MEDS ORDERED: ACETAMINOPHEN SUSP 160 MG/5 ML UDC PO PRN (00:27)
[2019-01-28] MEDS ORDERED: ACETAMINOPHEN 325 MG TAB PO PRN (00:32)
[2019-01-28 05:18] LABS: Basophils # (auto) 0.01 K/uL (0-0.2); Basophils % (auto) 0.3 %; Eosinophils # (auto) 0.07 K/uL (0-0.5); Eosinophils % (auto) 1.8 %; Hematocrit (blood only) 37.5 % (37-47); Hemoglobin 11.5 g/dL (12.0-16.0); Immature Granulocytes # (auto) 0.01 K/uL (0.00-0.02); Immature Granulocytes % (auto) 0.3 %; Lymphocytes # (auto) 0.87 K/uL (1.2-3.4); Lymphocytes % (auto) 22.6 %; Mean Corpuscular Hgb Conc 30.7 g/dL (32-36); Mean Corpuscular Volume 86.6 fL (80-100); Mean Platelet Volume 9.6 fL (7.4-10.4); Monocytes # (auto) 0.31 K/uL (0.11-0.59); Monocytes % (auto) 8.1 %; Neutrophils # (auto) 2.58 K/uL (1.4-6.5); Neutrophils % (auto) 66.9 %; Platelet Count 150 K/uL (130-400); RDW Coefficient of Variation 15.7 % (11.5-14.5); RDW Standard Deviation 50.8 fL (36.4-46.3); Red Blood Count 4.33 M/uL (4.2-5.4); White Blood Count 3.85 K/uL (4.8-10.8)
[2019-01-28] MEDS: SODIUM CHLORIDE 0.9% 1000ML 1,000 ML IV SCH ×4 (05:28→22:17)
[2019-01-28 05:49] LABS: Albumin Globulin Ratio 1.1 (0.9-2); Bilirubin,Total 0.5 mg/dl (0.2-1); Calcium 7.2 mg/dl (8.5-10.1); Creatinine Clr Calc Pharmacy 69.5 ml/min; Est GFR (African American) 95.4; Est GFR (Non-African American) 82.3; Globulin 2.8 gm/dl (2.5-4.0); Total Protein 5.8 gm/dl (6.4-8.2)
[2019-01-28] MEDS ORDERED: PANTOprazole 40 MG TAB PO SCH (06:30)
[2019-01-28] MEDS ORDERED: ONDANSETRON INJ 2 MG/ML 2 ML VIAL IV PRN (07:03)
[2019-01-28] MEDS: PANTOprazole 40 MG TAB PO SCH (08:13)
[2019-01-28] MEDS: DABIGATRAN ETEXILATE 75 MG CAP PO SCH ×2 (08:13→21:13)
[2019-01-28] MEDS ORDERED: CALCIUM GLUCONATE 10% 1,000 MG in SODIUM CHLORIDE 0.9% 50 ML IV ONE (08:45)
[2019-01-28] MEDS ORDERED: DABIGATRAN ETEXILATE 75 MG CAP PO SCH (09:00)
[2019-01-28] MEDS: IPRATROPIUM BROMIDE/ALBUTEROL respimat INH INH SCH ×4 (09:22→21:13)
[2019-01-28] MEDS: ACETAMINOPHEN 325 MG TAB PO PRN ×2 (11:56→21:20)
--- NOTE | 2019-01-28 15:15 | Hospitalist Progress Note ---
Date of Service January 28, 2019 Assessment & Plan (1) Abdominal pain: - CT A/P concerning for enteritis vs. SBO. - U/a was negative; Stool culture and C. diff are pending. - Lipase was elevated on admission, now trending down. - GI consulted, appreciate input. - NPO except meds; IV fluids at 125 cc/hr. - PPI daily & Zantac BID. - Zofran prn nausea/vomiting. (2) Diarrhea: - As noted above; stool cultures and C. diff pending. (3) Elevated lipase: - As noted above; level is now trending down. (4) Left groin hernia: - Per CT A/P; does not appear to be leading to acute issues. (5) Hypertension: - Not currently on home meds. (6) Chronic reflux esophagitis: - PPI daily and Zantac BID. (7) Benign positional vertigo: - Holding home Meclizine, will monitor. (8) Chronic anticoagulation: - In setting of h/o DVT and recent pacemaker placement. - Continue home Pradaxa as prescribed. (9) DVT (deep venous thrombosis): - Continue Pradaxa as prescribed. (10) Asthma: - Continue Combivent as prescribed. (11) Pacemaker: - Implanted in November 2016 for complete heart block. - Monitored as outpatient. (12) Legally blind: - Noted. (13) DVT prophylaxis: - Continue home Pradaxa. Dispo: Med/surg for evaluation of acute abd pain. Supervising Physician Co-Signing Physician Notes Attending Attestation: Chart reviewed, care plan d/w YEYO Aguilar. I agree w/ the solorzano components of her documentation. 73yo female who presented with abd pain & diarrhea. CT with left-sided groin hernia and mesenteric stranding. Appreciate GI consult and recs; agree w/ their recommendation for surgical consultation for hernia. Brenton Spencer MD Subjective Pt. has ongoing abd pain, located in the lower abdomen. She had two loose BMs this morning. Denies nausea/vomiting. GI consulted, recs pending. Review of Systems Review of Systems: All systems reviewed & are unremarkable except as noted in HPI & below Constitutional: no fever, no chills, no fatigue, no weakness and no anorexia Respiratory: no cough, no dyspnea, no dyspnea on exertion and no wheezing Cardiovascular: no chest pain, no palpitations and no edema Gastrointestinal: + abdominal pain and + diarrhea/loose stools; no nausea, no vomiting, no constipation, no blood in stools and no melena Genitourinary: no difficulty urinating Musculoskeletal: no back pain and no joint pain Integumentary: no non-healing lesions Allergy / Immunological: no rash Physical Exam Physical Exam: General: Resting comfortably in no apparent distress HEENT: NC/AT; PERRLA with EOMI; [place] conjunctiva, MMM. No erythema of posterior pharynx Neck: Supple and nontender Cardiac: RRR Lungs: CTA bilaterally Abdomen: Bowel normoactive X 4; Tender to light palpation on lower abdomen Extremities: Warm. No edema present Neuro: No focal weakness Skin: No rash Results & Data Vital Signs (Past 12 Hours) Vital Signs Temp Pulse Resp BP Pulse Ox 01/28/19 07:15 36.6 C 75 16 109/71 92 Laboratory Results 01/28/19 01/28/19 01/28/19 Range/Units 05:08 05:08 05:08 WBC 3.85 L (4.8-10.8) K/uL RBC 4.33 (4.2-5.4) M/uL Hgb 11.5 L (12.0-16.0) g/dL Hct 37.5 (37-47) % MCV 86.6 (80-100) fL MCH 26.6 (25-34) pg MCHC 30.7 L (32-36) g/dL RDW Std Deviation 50.8 H (36.4-46.3) fL RDW Coeff of [place] 15.7 H (11.5-14.5) % Plt Count 150 (130-400) K/uL MPV 9.6 (7.4-10.4) fL Immature Gran % (Auto) 0.3 % Neut % (Auto) 66.9 % Lymph % (Auto) 22.6 % [place] % (Auto) 8.1 % Eos % (Auto) 1.8 % Baso % (Auto) 0.3 % Immature Gran # (Auto) 0.01 (0.00-0.02) K/uL Neut # (Auto) 2.58 (1.4-6.5) K/uL Lymph # (Auto) 0.87 L (1.2-3.4) K/uL [place] # (Auto) 0.31 (0.11-0.59) K/uL Eos # (Auto) 0.07 (0-0.5) K/uL Baso # (Auto) 0.01 (0-0.2) K/uL Sodium 143 (136-145) mmol/L Potassium 4.0 (3.5-5.1) mmol/L Chloride 114 H (98-107) mmol/L Carbon Dioxide 25 (21-32) mmol/L Anion Gap 4.0 (3-11) BUN 10 D (7-18) mg/dl Creatinine 0.73 (0.6-1.2) mg/dl Est Cr Clr Drug Dosing 69.5 ml/min Est GFR ( Amer) 95.4 Est GFR (Non-Af Amer) 82.3 BUN/Creatinine Ratio 14.0 (10-20) Glucose 88 (70-99) mg/dl Calcium 7.2 L D (8.5-10.1) mg/dl Total Bilirubin 0.5 (0.2-1) mg/dl AST 10 L (15-37) U/L ALT 12 (12-78) U/L Alkaline Phosphatase 88 (45-117) U/L Troponin I (0-0.045) ng/ml Total Protein 5.8 L D (6.4-8.2) gm/dl Albumin 3.0 L (3.4-5.0) gm/dl Globulin 2.8 (2.5-4.0) gm/dl Albumin/Globulin Ratio 1.1 (0.9-2) Lipase 88 (73-393) U/L Urine Color Urine Appearance (Clear) Urine pH (4.5-7.5) Ur Specific [place] (1.000-1.030) Urine Protein (Negative) Urine Glucose (UA) (Negative) Urine Ketones (Negative) Urine Blood (Negative) Urine Nitrite (Negative) Urine Bilirubin (Negative) Urine Urobilinogen (Negative) Ur Leukocyte Esterase (Negative) 01/27/19 01/27/19 01/27/19 Range/Units 17:45 16:23 16:23 WBC 8.48 (4.8-10.8) K/uL RBC 5.18 (4.2-5.4) M/uL Hgb 14.0 (12.0-16.0) g/dL Hct 44.5 (37-47) % MCV 85.9 (80-100) fL MCH 27.0 (25-34) pg MCHC 31.5 L (32-36) g/dL RDW Std Deviation 50.0 H (36.4-46.3) fL RDW Coeff of [place]per 15.6 H (11.5-14.5) % Plt Count 193 (130-400) K/uL MPV 9.8 (7.4-10.4) fL Immature Gran % (Auto) 0.1 % Neut % (Auto) 90.5 % Lymph % (Auto) 4.2 % [place] % (Auto) 4.6 % Eos % (Auto) 0.5 % Baso % (Auto) 0.1 % Immature Gran # (Auto) 0.01 (0.00-0.02) K/uL Neut # (Auto) 7.67 H (1.4-6.5) K/uL Lymph # (Auto) 0.36 L (1.2-3.4) K/uL [place] # (Auto) 0.39 (0.11-0.59) K/uL Eos # (Auto) 0.04 (0-0.5) K/uL Baso # (Auto) 0.01 (0-0.2) K/uL Sodium 140 (136-145) mmol/L Potassium 4.3 (3.5-5.1) mmol/L Chloride 106 (98-107) mmol/L Carbon Dioxide 26 (21-32) mmol/L Anion Gap 8.0 (3-11) BUN 15 (7-18) mg/dl Creatinine 0.83 (0.6-1.2) mg/dl Est Cr Clr Drug Dosing 61.3 ml/min Est GFR ( Amer) 81.7 Est GFR (Non-Af Amer) 70.4 BUN/Creatinine Ratio 18.4 (10-20) Glucose 102 H (70-99) mg/dl Calcium 8.5 (8.5-10.1) mg/dl Total Bilirubin 0.6 (0.2-1) mg/dl AST 13 L (15-37) U/L ALT 16 (12-78) U/L Alkaline Phosphatase 109 (45-117) U/L Troponin I < 0.015 (0-0.045) ng/ml Total Protein 7.9 (6.4-8.2) gm/dl Albumin 4.0 (3.4-5.0) gm/dl Globulin 3.9 (2.5-4.0) gm/dl Albumin/Globulin Ratio 1.0 (0.9-2) Lipase 519 H (73-393) U/L Urine Color Yellow Urine Appearance Clear (Clear) Urine pH 7.5 (4.5-7.5) Ur Specific [place] 1.010 (1.000-1.030) Urine Protein Negative (Negative) Urine Glucose (UA) Negative (Negative) Urine Ketones Negative (Negative) Urine Blood Negative (Negative) Urine Nitrite Negative (Negative) Urine Bilirubin Negative (Negative) Urine Urobilinogen Negative (Negative) Ur Leukocyte Esterase Negative (Negative) PG Care Time/CCT Total # of Minutes Spent Total Time Spent with Patient: Total time spent is greater than 50% in coordination of care (as documented) at patient's floor/unit and/or counseling patient: (1) Abdominal pain Abdominal location: unspecified location Qualified Code(s): R10.9 - Unspecified abdominal pain
--- NOTE | 2019-01-28 16:56 | Surgery Consultation ---
Date of Consultation January 28, 2019 Assessment & Plan (1) Left groin hernia: pt is a 73 year-old female who was admitted to hospital for left femoral hernia IMP: left femoral hernia, Plan, base on pt's H/P , most likely left femoral hernia caused pt's symptoms. , pt already reduced her left femoral hernia prior CT scan, I recommend to do open repair left femoral hernia with mesh tomorrow. D/W benefits, risk and alternatives of the surgery, the risks - infection, bleeding, hernia recurrence, complications relate to mesh, chronic pain, MO, DVT, , pt understood, she agrees with the surgery, I answered all questions, industrial technologist consult for cardiac clearance, npo History of Present Illness Attending Physician: History of Present Illness Chief Complaint: LLQ pain, Diarrhea Primary Care Provider: SUNNI Felipe 73 yo F with history of complete heart block s/p pacer,previous h/o cardiac tamponade secondary to RV perforation following pacer placement, Asthma, SBO (1998) Hernia ( 3 years ago), Hypertension, degenerative disc disease, osteoporosis presenting with diarrhea, abdominal discomfort. Patient reports she woke 6 am with diarrhea ( 5-6 x), watery, no obvious blood, intermittent abdominal discomfort, lasting hrs. LLQ, Left groin . She tried "Charcoal gas" which gave her some relief however subsequently she felt bulge in left lower quadrant. She also report chills, n/v, lightheadedness. The evening before symptoms started , she reports she ate a cheeseburger a [place] carnival. Her family had same food, but did not get similar symptoms. In the ED, Patient arrived afebrile, VSS, CBC unremarkable, electrolyte wnl, LFTS unremarkable, elevated Lipase 519 , neg UA, CXR unremarkable, CT abdomen showing findings of mildly dilated small bowel suggestive of either enteritis or SBO per radiology report in addition to finding of Left groin hernia containing a small bowel loop without evidence of obstruction. I ( Luca Catalan MD)got a call for consult left femoral hernia, I reviewed pt's H/H with pt, pt said she already reduced her hernia, now, pt has no significant abdominal pain, mild tenderness at left inguinal area, no bulging, pt has no nausea or vomiting since today, no fever, but some diarrhea this morning. Allergies Allergy/AdvReac Type Severity Reaction Status Date / Time camphor Allergy Unknown SHORTNESS Unverified 01/27/19 16:56 OF BREATH eucalyptus Allergy Unknown SHORTNESS Unverified 01/27/19 16:56 OF BREATH menthol Allergy Unknown SHORTNESS Unverified 01/27/19 16:56 OF BREATH petrolatum,white Allergy Unknown Unverified 01/27/19 16:56 [From Vicks Vaporub] turpentine oil Allergy Unknown Unverified 01/27/19 16:56 [From Vicks Vaporub] aspirin AdvReac Mild ABD. PAIN Verified 01/27/19 16:56 AND VOMITING Home Medications Home Medications Medication Instructions Recorded Confirmed Type calcium carbonate-vitamin D3 1 tab PO QAM 01/27/19 01/27/19 History [Calcium 500 + D] cholecalciferol (vitamin D3) 2,000 unit PO BID 01/27/19 01/27/19 History [Vitamin D3] dabigatran etexilate [Pradaxa] 150 mg PO BID 01/27/19 01/27/19 History docusate sodium 100 mg PO QAM 01/27/19 01/27/19 History docusate sodium 200 mg PO HS 01/27/19 01/27/19 History fluticasone propionate [Flonase 1 spray INTRANASAL Q2D 01/27/19 01/27/19 History Allergy Relief] ipratropium-albuterol [Combivent 1 puff INHALATION QID 01/27/19 01/27/19 History Respimat] lidocaine HCl 1 applic TOPICAL Q12 01/27/19 01/27/19 History meclizine 25 mg PO TID PRN 01/27/19 01/27/19 History nitroglycerin [Nitrostat] 0.4 mg SUBLINGUAL UD PRN 01/27/19 01/27/19 History nystatin 1 applic TOPICAL TID 01/27/19 01/27/19 History pantoprazole 40 mg PO DAILYBB 01/27/19 01/27/19 History ranitidine HCl 150 mg PO BID 01/27/19 01/27/19 History vit C-E-zinc [id number]-[id number] 1 tab PO QAM 01/27/19 01/27/19 History [[facility]] Patient History Medical History Vitamin D deficiency (Acute) Tremor (Acute) Tinea corporis (Acute) Osteoporosis (Acute) Oral thrush (Acute) Legally blind (Acute) Hypertension (Acute) Hypermagnesemia (Acute) Gait instability (Acute) Encounter for long-term (current) use of medications (Acute) Chronic reflux esophagitis (Acute) Chronic obstructive pulmonary disease (Acute) Benign positional vertigo (Acute) BMI 34.0-34.9,adult (Acute) Dehydration (Resolved) Vertigo (Resolved) Vertigo (Resolved) Nausea (Resolved) Loss of consciousness (Resolved 03/17/14) Nasal bone fracture (Resolved 03/17/14) Nasal bone fracture (Resolved) Loss of consciousness (Resolved) Vertigo (Resolved) Pacemaker (Chronic) Right foot sprain (Acute) Left calcaneal fracture (Acute) LLQ abdominal pain (Acute) Pulmonary emboli Infected wound DVT (deep venous thrombosis) Dizziness (Acute) Complete heart block (Resolved) Diverticulosis (Chronic) Chest discomfort Family History Other Diabetes Hypertension Social History Preferred Language: Nepali Communication Ability: Effective Junior Administrative Assistant Required: No Beliefs That Will Affect Care: None Current Living Situation: Alone Other Information That Helps Us Care for You: No Feels Safe at Home: Yes Safety Concerns: Feels Safe At This Time Smoking Status: Never smoker Do You Dip or Chew Tobacco: No Hx Alcohol Use: Yes Alcohol type: hard liquor Hx Substance Use: No Review of Systems Review of Systems: All systems reviewed & are unremarkable except as noted in HPI & below Constitutional: as per Subjective / HPI Ear, Nose, Mouth, Throat: as per Subjective / HPI Respiratory: as per Subjective / HPI pulmonary emboli Cardiovascular: Additional Comments: pacemaker in 2017, complete heart block, chest discomfort, DVT Gastrointestinal: as per Subjective / HPI Genitourinary: as per Subjective / HPI Neurologic: as per Subjective / HPI Psychiatric: as per Subjective / HPI Endocrine: as per Subjective / HPI Hematologic / Lymphatic: as per Subjective / HPI Physical Exam Constitutional: WD/WN, vitals as above well developed and well nourished Eyes: blind ENMT: external ear and nose normal, oropharynx normal Neck: trachea midline, no thyromegaly Respiratory: normal respiratory effort, lungs clear to auscultation Cardiovascular: RRR, no murmur, no edema Rate/Rhythm: regular rate and regular rhythm Heart Sounds: normal S1 and normal S2 Gastrointestinal (Abdomen): normal bowel sounds, soft, nontender, no hepatosplenomegaly some tenderness at left groin area, no bulging now, no rebound pain Neurologic: patellar DTR's 2+ bilat, sensation intact Psychiatric: A+Ox3, euthymic affect Orientation: alert and oriented x 3 Results & Data Vital Signs (Past 12 Hours) Vital Signs Temp Pulse Resp BP Pulse Ox 01/28/19 15:31 36.8 C 72 17 116/78 93 01/28/19 07:15 36.6 C 75 16 109/71 92 Laboratory Results Abnormal lab results 01/28/19 01/28/19 Range/Units 05:08 05:08 WBC 3.85 L (4.8-10.8) K/uL Hgb 11.5 L (12.0-16.0) g/dL MCHC 30.7 L (32-36) g/dL RDW Std Deviation 50.8 H (36.4-46.3) fL RDW Coeff of Prosper 15.7 H (11.5-14.5) % Lymph # (Auto) 0.87 L (1.2-3.4) K/uL Chloride 114 H (98-107) mmol/L Calcium 7.2 L D (8.5-10.1) mg/dl AST 10 L (15-37) U/L Total Protein 5.8 L D (6.4-8.2) gm/dl Albumin 3.0 L (3.4-5.0) gm/dl Diagnostic Findings CT OF THE ABDOMEN AND PELVIS WITH CONTRAST CLINICAL HISTORY: Left lower quadrant abdominal pain. COMPARISON STUDY: CT of the abdomen and pelvis November 16, 2016. Abdominal ultrasound December 23, 2016. TECHNIQUE: Following IV administration of 93 mL of Optiray-320, axial images of the abdomen and pelvis were obtained from the lung bases to the proximal femurs. Images were reviewed in the axial, sagittal, and coronal planes. IV contrast was administered without complication. Automated exposure control was utilized for the study. A dose lowering technique was utilized adhering to the principles of ALARA. CT DOSE: 878.54 mGycm FINDINGS: Left basilar atelectasis is noted. There is no biliary ductal dilatation status post cholecystectomy. There is no peripancreatic infiltration. There is no pancreatic ductal dilatation. The spleen, adrenal glands and kidneys are unremarkable. There is a slight swirling appearance of the mesentery with minimal mesenteric infiltration. A left groin hernia, possibly femoral, contains a small bowel loop. This does not result in a bowel obstruction. A few loops of mildly dilated small bowel are noted that measure up to 3 mm in caliber. A de finite transition point is not identified. There is a previous ventral hernia repair with mesh. No pneumatosis, free air or portal venous gas is present. There is sigmoid diverticulosis without evidence for acute diverticulitis. Hardware within the proximal right femur is noted from internal fixation. IMPRESSION: 1. A few loops of mildly dilated small bowel without definite transition point. The findings may reflect an enteritis or partial small bowel obstruction. Slight swirling of the mesentery with minimal mesenteric infiltration, a finding of questionable significance 2. Left groin hernia, possibly femoral which contains a small bowel loop. This does not result in a bowel obstruction.
--- NOTE | 2019-01-28 16:57 | Consultation Report ---
DATE OF CONSULTATION: 01/28/2019 GI CONSULT NOTE REASON FOR EVALUATION: Diarrhea, abdominal pain and abnormal CT scan. HISTORY OF PRESENT ILLNESS: The patient is a 73-year-old who reports a 9-month history of intermittent left lower quadrant pain with associated episodic episodes of diarrhea. The patient had a worsening episode and presented to the hospital. She had a CAT scan that shows a left groin hernia with small bowel within the herniation, but no strangulation. Stools for bacterial culture and C. diff have been obtained. There was some mesenteric stranding in the abdomen, but no evidence of pancreatitis on CT scan and no epigastric pain to suggest pancreatitis despite a mild elevation in lipase. Her white count is normal. She is being treated with bowel rest and p.r.n. Zofran. PAST MEDICAL HISTORY: Remarkable for hypertension, benign positional vertigo. She has a pacemaker. She is on chronic anticoagulation. She has a history of asthma, pulmonary emboli with a DVT, pacemakers for complete heart block. She also has hypertension and is legally blind, although she has some vision. MEDICATIONS: At home include a blood thinner. ALLERGIES: [id number], PETROLATUM, TURPENTINE AND ASPIRIN. FAMILY HISTORY: Positive for diabetes and hypertension. SOCIAL HISTORY: The patient lives alone. She does not smoke. She does use alcohol occasionally. REVIEW OF SYSTEMS: Positive for the above symptoms, but no other significant abnormalities on 12-point review. PHYSICAL EXAMINATION: GENERAL: The patient appears awake, alert, in no acute distress. VITAL SIGNS: Show blood pressure 152/88, pulse 100. She is afebrile. CHEST: Shows a pacemaker in the left anterior chest. Rhythm is normal. LUNGS: Clear. ABDOMEN: Shows a low midline scar from a previous ventral hernia repair. There is some tenderness in the left groin area from her incarcerated hernia. Liver and spleen were not palpable. IMPRESSION: The patient is having intermittent abdominal pain and diarrhea and has a left inguinal hernia with some mesenteric stranding. Stool studies are pending. I plan on adding a fecal leukocyte study as well as getting a surgical consultation to evaluate the left groin hernia, which may be the root of her problems. We will follow the patient and await her stool cultures and surgical consultation.
[2019-01-29] MEDS: SODIUM CHLORIDE 0.9% 1000ML 1,000 ML IV SCH ×2 (05:48→13:42)
[2019-01-29] MEDS: PANTOprazole 40 MG TAB PO SCH (05:48)
--- NOTE | 2019-01-29 07:05 | Anesthesiology Consultation ---
Date of Service January 29, 2019 Assessment & Plan (1) Encounter for pre-operative examination: Chart Review Chart Review: Acceptable Risk for Surgery and Patient NOT seen in Pre Admission Testing Consults Requested none History Surgery Operation Date: 01/29/19 14:05 Proposed Procedures p Open Repair Left Femoral Hernia with Mesh - Luca Catalan MD Height/Weight Height: 5 ft 2 in Weight: 83.2 kg Allergies Allergy/AdvReac Type Severity Reaction Status Date / Time camphor Allergy Unknown SHORTNESS Unverified 01/27/19 16:56 OF BREATH eucalyptus Allergy Unknown SHORTNESS Unverified 01/27/19 16:56 OF BREATH menthol Allergy Unknown SHORTNESS Unverified 01/27/19 16:56 OF BREATH petrolatum,white Allergy Unknown Unverified 01/27/19 16:56 [From Vicks Vaporub] turpentine oil Allergy Unknown Unverified 01/27/19 16:56 [From Vicks Vaporub] aspirin AdvReac Mild ABD. PAIN Verified 01/27/19 16:56 AND VOMITING Medications Home Medications Medication Instructions Recorded Confirmed Last Taken calcium carbonate-vitamin D3 1 tab PO QAM 01/27/19 01/27/19 01/27/19 [Calcium 500 + D] cholecalciferol (vitamin D3) 2,000 unit PO BID 01/27/19 01/27/19 01/27/19 [Vitamin D3] dabigatran etexilate [Pradaxa] 150 mg PO BID 01/27/19 01/27/19 01/27/19 docusate sodium 100 mg PO QAM 01/27/19 01/27/19 01/27/19 docusate sodium 200 mg PO HS 01/27/19 01/27/19 01/26/19 fluticasone propionate [Flonase 1 spray INTRANASAL Q2D 01/27/19 01/27/19 Unknown Allergy Relief] ipratropium-albuterol [Combivent 1 puff INHALATION QID 01/27/19 01/27/19 01/27/19 Respimat] lidocaine HCl 1 applic TOPICAL Q12 01/27/19 01/27/19 Unknown meclizine 25 mg PO TID PRN 01/27/19 01/27/19 01/26/19 nitroglycerin [Nitrostat] 0.4 mg SUBLINGUAL UD PRN 01/27/19 01/27/19 Unknown nystatin 1 applic TOPICAL TID 01/27/19 01/27/19 Unknown pantoprazole 40 mg PO DAILYBB 01/27/19 01/27/19 01/27/19 ranitidine HCl 150 mg PO BID 01/27/19 01/27/19 01/27/19 vit C-E-zinc [id number] 1 tab PO QAM 01/27/19 01/27/19 01/27/19 [facility] Active Medications Generic Name Dose Route Start Last Admin Trade Name Freq PRN Reason Stop Dose Admin Acetaminophen 650 mg 01/28/19 07:03 01/28/19 21:20 Tylenol PO 02/27/19 07:02 650 mg Q4H PRN Administration pain/fever Albuterol 1 puffs 01/28/19 08:00 01/28/19 21:13 Combivent Respimat INH 02/27/19 07:59 1 puffs QIDR YOHANA Administration Dabigatran 150 mg 01/28/19 09:00 01/28/19 21:13 Pradaxa PO 02/27/19 08:59 150 mg BID YOHANA Administration Sodium Chloride 1,000 mls @ 125 mls/hr 01/28/19 07:03 01/29/19 05:48 Nss 1000ml IV 02/27/19 07:02 125 mls/hr .Q8H YOHANA Administration Pantoprazole Sodium 40 mg 01/28/19 07:30 01/29/19 05:48 Protonix PO 02/27/19 07:29 40 mg DAILYBB YOHANA Administration Ranitidine HCl 150 mg 01/28/19 07:30 01/28/19 21:13 Zantac PO 02/27/19 07:29 150 mg BID YOHANA Administration NPO Date Last Intake of Fluids: 01/28/19 Time Last Intake of Fluids: 23:59 Date Last Intake of Solids: 01/28/19 Time Last Intake of Solids: 23:59 Past Medical History Medical History Left groin hernia Vitamin D deficiency (Acute) Tremor (Acute) Tinea corporis (Acute) Osteoporosis (Acute) Oral thrush (Acute) Legally blind (Acute) Hypertension (Acute) Hypermagnesemia (Acute) Gait instability (Acute) Encounter for long-term (current) use of medications (Acute) Chronic reflux esophagitis (Acute) Chronic obstructive pulmonary disease (Acute) Benign positional vertigo (Acute) BMI 34.0-34.9,adult (Acute) Dehydration (Resolved) Vertigo (Resolved) Vertigo (Resolved) Nausea (Resolved) Loss of consciousness (Resolved 03/17/14) Nasal bone fracture (Resolved 03/17/14) Nasal bone fracture (Resolved) Loss of consciousness (Resolved) Vertigo (Resolved) Right foot sprain (Acute) Left calcaneal fracture (Acute) LLQ abdominal pain (Acute) Pulmonary emboli Infected wound DVT (deep venous thrombosis) Dizziness (Acute) Complete heart block (Resolved) Diverticulosis (Chronic) Chest discomfort Cardiac tamponade after RV perforation during pacemaker placement, now resolved Complete heart block now has pacemaker Past Family History Family History Other Diabetes Hypertension Past Surgical History Surgical History Pacemaker (Chronic) Social History Smoking Status: Never smoker Do You Dip or Chew Tobacco: No Hx Alcohol Use: Yes Alcohol type: hard liquor alcohol intake frequency: holidays/special occasions only Hx Substance Use: No substance use type: does not use Physical Exam Vital Signs Last Vital Signs Temp 36.9 C 01/28/19 22:55 Pulse 79 01/28/19 22:55 Resp 16 01/28/19 22:55 BP 96/55 L 01/28/19 22:55 Pulse Ox 92 01/28/19 22:55 Testing Laboratory Results 01/28/19 05:08 01/28/19 05:08 Urine Color Yellow 01/27/19 17:45 Urine Appearance Clear (Clear) 01/27/19 17:45 Urine pH 7.5 (4.5-7.5) 01/27/19 17:45 Ur Specific [place] 1.010 (1.000-1.030) 01/27/19 17:45 Urine Protein Negative (Negative) 01/27/19 17:45 Urine Glucose (UA) Negative (Negative) 01/27/19 17:45 Urine Ketones Negative (Negative) 01/27/19 17:45 Urine Nitrite Negative (Negative) 01/27/19 17:45 Ur Leukocyte Esterase Negative (Negative) 01/27/19 17:45 Electrocardiogram Date: 01/27/19 Findings: + RBBB (incomplete) and + ST @ (101) possible RVH Chest X-Ray Date: 01/27/19 XR chest 1V portable CLINICAL HISTORY: Chest pain with cough. COMPARISON STUDY: Chest radiograph August 18, 2017. FINDINGS: A dual lead left pacemaker is in place. There is no pneumothorax or pleural effusion. Blunting of the left costophrenic angle is chronic. Left basilar opacity suggests atelectasis. Cardiac size is normal. Mediastinal contours are normal. There may be calcific tendinitis of the right rotator cuff. IMPRESSION: No acute cardiopulmonary findings. No change in appearance of the chest. Electronically signed by: Doug Schuler M.D. 01/27/2019 4:39 PM
[2019-01-29 07:56] LABS: Basophils # (auto) 0.02 K/uL (0-0.2); Basophils % (auto) 0.4 %; Eosinophils # (auto) 0.13 K/uL (0-0.5); Eosinophils % (auto) 2.6 %; Hemoglobin 11.9 g/dL (12.0-16.0); Lymphocytes # (auto) 0.63 K/uL (1.2-3.4); Lymphocytes % (auto) 12.8 %; Mean Corpuscular Hgb Conc 30.5 g/dL (32-36); Mean Corpuscular Volume 87.8 fL (80-100); Monocytes # (auto) 0.48 K/uL (0.11-0.59); Monocytes % (auto) 9.8 %; Neutrophils # (auto) 3.65 K/uL (1.4-6.5); Neutrophils % (auto) 74.4 %; Platelet Count 158 K/uL (130-400); RDW Coefficient of Variation 15.7 % (11.5-14.5); RDW Standard Deviation 50.9 fL (36.4-46.3); Red Blood Count 4.44 M/uL (4.2-5.4); White Blood Count 4.91 K/uL (4.8-10.8)
[2019-01-29 08:12] LABS: INR 1.1 (0.9-1.1); Partial Thromboplastin Ratio 1.5; Partial Thromboplastin Time 40.4 Seconds (21.0-31.0); Prothrombin Time 11.5 Seconds (9.0-12.0)
[2019-01-29] MEDS: IPRATROPIUM BROMIDE/ALBUTEROL respimat INH INH SCH ×4 (08:17→19:53)
[2019-01-29] MEDS: DABIGATRAN ETEXILATE 75 MG CAP PO SCH (08:17)
[2019-01-29 08:31] LABS: Albumin Level 3.1 gm/dl (3.4-5.0); BUN Creatinine Ratio 10.5 (10-20); Calcium 8.1 mg/dl (8.5-10.1); Creatinine Clr Calc Pharmacy 80.7 ml/min; Est GFR (African American) 103.9; Est GFR (Non-African American) 89.6; Potassium 3.9 mmol/L (3.5-5.1)
[2019-01-29 08:34] LABS: Bilirubin,Total 0.5 mg/dl (0.2-1); Globulin 3.2 gm/dl (2.5-4.0); Total Protein 6.3 gm/dl (6.4-8.2)
--- NOTE | 2019-01-29 09:35 | Surgery Progress Note ---
Date of Service January 29, 2019 Assessment & Plan (1) Left groin hernia: pt is a 73 year-old female who was admitted to hospital for abdominal pain and diarrhea. CT scan showing left inguinal possible femoral hernia containing loop of small bowel however no signs of obstruction. Possible colitis vs partial SBO. + bowel movements , liquid, watery. - c. diff. No leukocytosis. abdomen soft, nondistended, no rigidity, mild tenderness in LLQ Plan: Planned for open left groin hernia repair with mesh today however patient has been receiving her Pradaxa (yesterday BID and this mornings dose). Surgery cancelled for today and rescheduled for . Will need to hold Pradaxa. Discussed with patient, as she is stable and no emergent need for surgery would prefer to hold Pradaxa to avoid increased bleeding during procedure. Patient understood and agreed. May have clear liquids Continue medical management NPO after midnight Monday Discussed with Dr. Catalan who agrees with above Subjective sleeping upon entering room feeling okay this morning no nausea or vomiting, + appetite liquid watery bowel movements yesterday and today abdominal pain in the LLQ Physical Exam Constitutional: WD/WN, vitals as above no acute distress and not ill appearing Respiratory: normal respiratory effort; no respiratory distress Auscultation: + wheezes Gastrointestinal (Abdomen): Inspection/Auscultation: abdomen normal to inspection; abdomen not distended Percussion/Palpation: + abdomen tender (very mild in LLQ) and abdomen soft; no guarding and abdomen not rigid Skin: no rashes, warm and dry Psychiatric: A+Ox3, euthymic affect Results & Data Vital Signs (Past 12 Hours) Vital Signs Temp Pulse Resp BP BP Pulse Ox 01/29/19 07:43 36.7 C 71 16 121/79 94 01/28/19 22:55 36.9 C 79 16 96/55 L 92 Laboratory Results 01/29/19 01/29/19 01/29/19 Range/Units 07:37 07:37 07:37 WBC 4.91 (4.8-10.8) K/uL RBC 4.44 (4.2-5.4) M/uL Hgb 11.9 L (12.0-16.0) g/dL Hct 39.0 (37-47) % MCV 87.8 (80-100) fL MCH 26.8 (25-34) pg MCHC 30.5 L (32-36) g/dL RDW Std Deviation 50.9 H (36.4-46.3) fL RDW Coeff of Prosper 15.7 H (11.5-14.5) % Plt Count 158 (130-400) K/uL MPV 10.0 (7.4-10.4) fL Immature Gran % (Auto) 0.0 % Neut % (Auto) 74.4 % Lymph % (Auto) 12.8 % Coffey % (Auto) 9.8 % Eos % (Auto) 2.6 % Baso % (Auto) 0.4 % Immature Gran # (Auto) 0.00 (0.00-0.02) K/uL Neut # (Auto) 3.65 (1.4-6.5) K/uL Lymph # (Auto) 0.63 L (1.2-3.4) K/uL Coffey # (Auto) 0.48 (0.11-0.59) K/uL Eos # (Auto) 0.13 (0-0.5) K/uL Baso # (Auto) 0.02 (0-0.2) K/uL PT 11.5 (9.0-12.0) Seconds INR 1.1 (0.9-1.1) APTT 40.4 H (21.0-31.0) Seconds PTT Ratio 1.5 Sodium 144 (136-145) mmol/L Potassium 3.9 (3.5-5.1) mmol/L Chloride 113 H (98-107) mmol/L Carbon Dioxide 21 (21-32) mmol/L Anion Gap 9.0 (3-11) BUN 7 (7-18) mg/dl Creatinine 0.63 (0.6-1.2) mg/dl Est Cr Clr Drug Dosing 80.7 ml/min Est GFR ( Amer) 103.9 Est GFR (Non-Af Amer) 89.6 BUN/Creatinine Ratio 10.5 (10-20) Glucose 81 (70-99) mg/dl Calcium 8.1 L (8.5-10.1) mg/dl Total Bilirubin 0.5 (0.2-1) mg/dl AST 13 L (15-37) U/L ALT 13 (12-78) U/L Alkaline Phosphatase 90 (45-117) U/L Total Protein 6.3 L (6.4-8.2) gm/dl Albumin 3.1 L (3.4-5.0) gm/dl Globulin 3.2 (2.5-4.0) gm/dl Albumin/Globulin Ratio 1.0 (0.9-2) Stl C. diff Tox B Gene (Neg) 01/29/19 Range/Units 07:25 WBC (4.8-10.8) K/uL RBC (4.2-5.4) M/uL Hgb (12.0-16.0) g/dL Hct (37-47) % MCV (80-100) fL MCH (25-34) pg MCHC (32-36) g/dL RDW Std Deviation (36.4-46.3) fL RDW Coeff of Prosper (11.5-14.5) % Plt Count (130-400) K/uL MPV (7.4-10.4) fL Immature Gran % (Auto) % Neut % (Auto) % Lymph % (Auto) % Coffey % (Auto) % Eos % (Auto) % Baso % (Auto) % Immature Gran # (Auto) (0.00-0.02) K/uL Neut # (Auto) (1.4-6.5) K/uL Lymph # (Auto) (1.2-3.4) K/uL Coffey # (Auto) (0.11-0.59) K/uL Eos # (Auto) (0-0.5) K/uL Baso # (Auto) (0-0.2) K/uL PT (9.0-12.0) Seconds INR (0.9-1.1) APTT (21.0-31.0) Seconds PTT Ratio Sodium (136-145) mmol/L Potassium (3.5-5.1) mmol/L Chloride (98-107) mmol/L Carbon Dioxide (21-32) mmol/L Anion Gap (3-11) BUN (7-18) mg/dl Creatinine (0.6-1.2) mg/dl Est Cr Clr Drug Dosing ml/min Est GFR ( Amer) Est GFR (Non-Af Amer) BUN/Creatinine Ratio (10-20) Glucose (70-99) mg/dl Calcium (8.5-10.1) mg/dl Total Bilirubin (0.2-1) mg/dl AST (15-37) U/L ALT (12-78) U/L Alkaline Phosphatase (45-117) U/L Total Protein (6.4-8.2) gm/dl Albumin (3.4-5.0) gm/dl Globulin (2.5-4.0) gm/dl Albumin/Globulin Ratio (0.9-2) Stl C. diff Tox B Gene Negative Cdiff Gene (Neg)
--- NOTE | 2019-01-29 13:26 | Hospitalist Progress Note ---
Date of Service January 29, 2019 Assessment & Plan (1) Abdominal pain: - CT A/P concerning for enteritis vs. SBO. Also showed left groin hernia -- may be contributing to symptoms. - U/a and C. diff were negative. - GI and surgery consulted, appreciate input. Plan for left hernia repair on Mon. - CLD as tolerated; decrease IV fluids to 75 cc/hr. - PPI daily & Zantac BID. (2) Left groin hernia: - Per CT A/P; surgery consulted, plan for hernia repair on (delayed procedure due to anticoagulation therapy) - CLD as tolerated; NPO after midnight on Mon. (3) Diarrhea: - As noted above; C. diff negative. (4) Elevated lipase: - As noted above; level trended down. (5) Hypertension: - Not currently on home meds. (6) Chronic reflux esophagitis: - PPI daily and Zantac BID. (7) Benign positional vertigo: - Holding home Meclizine, will monitor. (8) Chronic anticoagulation: - In setting of h/o DVT. - Will hold home Pradaxa for procedure. (9) DVT (deep venous thrombosis): - Hold Pradaxa for procedure. (10) Asthma: - Continue Combivent as prescribed. (11) Pacemaker: - Implanted in November 2016 for complete heart block. - Monitored as outpatient. (12) Legally blind: - Noted. (13) DVT prophylaxis: - SCDs; holding home Pradaxa for procedure. Dispo: Med/surg; plan for hernia repair on . Supervising Physician Co-Signing Physician Notes Attending Attestation: Chart reviewed, care plan d/w YEYO Aguilar. I agree w/ the solorzano components of her documentation. Patient for hernia repair later this week. Surgery delayed due to pradaxa use which is now on hold for surgery. C diff negative. Supportive care. Brenton Spencer MD Subjective Pt. complains of LLQ burning pain extending into her groin. She is having diarrhea, no improvement overall. Denies N/V, chest pain, SOB. Plan for hernia repair on . Review of Systems Review of Systems: All systems reviewed & are unremarkable except as noted in HPI & below Constitutional: no fever, no chills, no fatigue, no weakness and no anorexia Respiratory: no cough, no dyspnea, no dyspnea on exertion and no wheezing Cardiovascular: no chest pain, no palpitations and no edema Gastrointestinal: + abdominal pain and + diarrhea/loose stools; no nausea, no vomiting and no constipation Genitourinary: no difficulty urinating Musculoskeletal: no back pain and no joint pain Integumentary: no non-healing lesions Allergy / Immunological: no rash Physical Exam Physical Exam: General: Resting comfortably in no apparent distress HEENT: NC/AT; PERRLA with EOMI; [place] conjunctiva, MMM. No erythema of posterior pharynx Neck: Supple and nontender Cardiac: RRR Lungs: CTA bilaterally Abdomen: Bowel normoactive X 4; Non tender to light palpation Extremities: Warm. No edema present Neuro: No focal weakness Skin: No rash Results & Data Vital Signs (Past 12 Hours) Vital Signs Temp Pulse Resp BP Pulse Ox 01/29/19 07:43 36.7 C 71 16 121/79 94 Laboratory Results 01/29/19 01/29/19 01/29/19 Range/Units 07:37 07:37 07:37 WBC 4.91 (4.8-10.8) K/uL RBC 4.44 (4.2-5.4) M/uL Hgb 11.9 L (12.0-16.0) g/dL Hct 39.0 (37-47) % MCV 87.8 (80-100) fL MCH 26.8 (25-34) pg MCHC 30.5 L (32-36) g/dL RDW Std Deviation 50.9 H (36.4-46.3) fL RDW Coeff of Prosper 15.7 H (11.5-14.5) % Plt Count 158 (130-400) K/uL MPV 10.0 (7.4-10.4) fL Immature Gran % (Auto) 0.0 % Neut % (Auto) 74.4 % Lymph % (Auto) 12.8 % [place] % (Auto) 9.8 % Eos % (Auto) 2.6 % Baso % (Auto) 0.4 % Immature Gran # (Auto) 0.00 (0.00-0.02) K/uL Neut # (Auto) 3.65 (1.4-6.5) K/uL Lymph # (Auto) 0.63 L (1.2-3.4) K/uL [place] # (Auto) 0.48 (0.11-0.59) K/uL Eos # (Auto) 0.13 (0-0.5) K/uL Baso # (Auto) 0.02 (0-0.2) K/uL PT 11.5 (9.0-12.0) Seconds INR 1.1 (0.9-1.1) APTT 40.4 H (21.0-31.0) Seconds PTT Ratio 1.5 Sodium 144 (136-145) mmol/L Potassium 3.9 (3.5-5.1) mmol/L Chloride 113 H (98-107) mmol/L Carbon Dioxide 21 (21-32) mmol/L Anion Gap 9.0 (3-11) BUN 7 (7-18) mg/dl Creatinine 0.63 (0.6-1.2) mg/dl Est Cr Clr Drug Dosing 80.7 ml/min Est GFR ( Amer) 103.9 Est GFR (Non-Af Amer) 89.6 BUN/Creatinine Ratio 10.5 (10-20) Glucose 81 (70-99) mg/dl Calcium 8.1 L (8.5-10.1) mg/dl Total Bilirubin 0.5 (0.2-1) mg/dl AST 13 L (15-37) U/L ALT 13 (12-78) U/L Alkaline Phosphatase 90 (45-117) U/L Total Protein 6.3 L (6.4-8.2) gm/dl Albumin 3.1 L (3.4-5.0) gm/dl Globulin 3.2 (2.5-4.0) gm/dl Albumin/Globulin Ratio 1.0 (0.9-2) Stl C. diff Tox B Gene (Neg) 01/29/19 Range/Units 07:25 WBC (4.8-10.8) K/uL RBC (4.2-5.4) M/uL Hgb (12.0-16.0) g/dL Hct (37-47) % MCV (80-100) fL MCH (25-34) pg MCHC (32-36) g/dL RDW Std Deviation (36.4-46.3) fL RDW Coeff of Prosper (11.5-14.5) % Plt Count (130-400) K/uL MPV (7.4-10.4) fL Immature Gran % (Auto) % Neut % (Auto) % Lymph % (Auto) % [place] % (Auto) % Eos % (Auto) % Baso % (Auto) % Immature Gran # (Auto) (0.00-0.02) K/uL Neut # (Auto) (1.4-6.5) K/uL Lymph # (Auto) (1.2-3.4) K/uL [place] # (Auto) (0.11-0.59) K/uL Eos # (Auto) (0-0.5) K/uL Baso # (Auto) (0-0.2) K/uL PT (9.0-12.0) Seconds INR (0.9-1.1) APTT (21.0-31.0) Seconds PTT Ratio Sodium (136-145) mmol/L Potassium (3.5-5.1) mmol/L Chloride (98-107) mmol/L Carbon Dioxide (21-32) mmol/L Anion Gap (3-11) BUN (7-18) mg/dl Creatinine (0.6-1.2) mg/dl Est Cr Clr Drug Dosing ml/min Est GFR ( Amer) Est GFR (Non-Af Amer) BUN/Creatinine Ratio (10-20) Glucose (70-99) mg/dl Calcium (8.5-10.1) mg/dl Total Bilirubin (0.2-1) mg/dl AST (15-37) U/L ALT (12-78) U/L Alkaline Phosphatase (45-117) U/L Total Protein (6.4-8.2) gm/dl Albumin (3.4-5.0) gm/dl Globulin (2.5-4.0) gm/dl Albumin/Globulin Ratio (0.9-2) Stl C. diff Tox B Gene Negative Cdiff Gene (Neg) PG Care Time/CCT Total # of Minutes Spent Total Time Spent with Patient: Total time spent is greater than 50% in coordination of care (as documented) at patient's floor/unit and/or counseling patient: (1) Abdominal pain Abdominal location: unspecified location Qualified Code(s): R10.9 - Unspecified abdominal pain
[2019-01-29] MEDS ORDERED: Nursing to Pharmacy Communication ONE (13:38)
[2019-01-29] MEDS: ACETAMINOPHEN 325 MG TAB PO PRN ×2 (14:05→21:23)
--- NOTE | 2019-01-29 15:20 | Cardiology Consultation ---
Date of Consultation January 29, 2019 Assessment & Plan (1) Encounter for pre-operative examination: Patient is scheduled to undergo a relatively low risk operation. She has no history of significant coronary disease. She is not describing symptoms consistent with angina or congestive heart failure. While she is fairly sedentary given her visual impairment, she seems to be able to perform a reasonable workload at times. Her examination is normal. She has a normally functioning dual-chamber permanent pacemaker but is not pacemaker dependent. No arrhythmias were detected through her device. Recommend she undergo the intended procedure without additional cardiac testing. No precautions are required regarding her pacemaker in the operative period. No reprogramming is required as she is not device dependent. As with all patients in her demographic, care should be taken to avoid significant blood loss, hypoxia, hypotension, hypertension or tachycardia. (2) Complete heart block: She previously had significant pacing and evidence of heart block. However, recently she has not had much pacing at all and has intact conduction. She is normally functioning dual-chamber pacemaker in any event. As noted above since she is not device dependent no specific precautions are required in the intraoperative period. No reprogramming is required. History of Present Illness Reason for Consultation: pre-operative Requesting Physician: Alan Attending Physician: Brenton Spencer History of Present Illness The patient is a 73-year-old woman without a known history of coronary disease who had previously undergone implantation of dual-chamber permanent pacemaker for recurrent episodes of syncope. Over the past several weeks the patient has been experiencing episodes of left lower abdominal discomfort and diarrhea. The symptoms waxed and waned in severity. She also noticed an obvious bulge at the lower abdomen. This was reducible on palpation. Based on a worsening of her symptoms she presented to [facility] and originally was felt to have a possible small bowel obstruction. Additional evaluation suggested that her symptoms are possibly related to a left femoral hernia. The patient was scheduled for operative intervention today but due to continued anticoagulation this has been deferred until . The patient states that she has maintained a good level of activity. She is able to maintain a garden and go on walks periodically. She walks less frequently due to some vision problems, but did not appear to have limiting dyspnea and has not had symptoms of exertional chest pain. She did report symptoms of chest pain on occasion. These happen infrequently and are not generally associated with activity. Mostly these episodes appear to be associated with coughing. She has remote history of syncope which resolved with implantation of a pacemaker. She did not endorse symptoms of dizziness or lightheadedness. She has not been aware of any palpitations. Allergies Allergy/AdvReac Type Severity Reaction Status Date / Time camphor Allergy Unknown SHORTNESS Unverified 01/27/19 16:56 OF BREATH eucalyptus Allergy Unknown SHORTNESS Unverified 01/27/19 16:56 OF BREATH menthol Allergy Unknown SHORTNESS Unverified 01/27/19 16:56 OF BREATH petrolatum,white Allergy Unknown Unverified 01/27/19 16:56 [From Vicks Vaporub] turpentine oil Allergy Unknown Unverified 01/27/19 16:56 [From [facility] [facility]apor[facility]] aspirin AdvReac Mild ABD. PAIN Verified 01/27/19 16:56 AND VOMITING Home Medications Home Medications Medication Instructions Recorded Confirmed Type calcium carbonate-vitamin D3 1 tab PO QAM 01/27/19 01/27/19 History [Calcium 500 + D] cholecalciferol (vitamin D3) 2,000 unit PO BID 01/27/19 01/27/19 History [Vitamin D3] dabigatran etexilate [Pradaxa] 150 mg PO BID 01/27/19 01/27/19 History docusate sodium 100 mg PO QAM 01/27/19 01/27/19 History docusate sodium 200 mg PO HS 01/27/19 01/27/19 History fluticasone propionate [Flonase 1 spray INTRANASAL Q2D 01/27/19 01/27/19 History Allergy Relief] ipratropium-albuterol [Combivent 1 puff INHALATION QID 01/27/19 01/27/19 History Respimat] lidocaine HCl 1 applic TOPICAL Q12 01/27/19 01/27/19 History meclizine 25 mg PO TID PRN 01/27/19 01/27/19 History nitroglycerin [Nitrostat] 0.4 mg SUBLINGUAL UD PRN 01/27/19 01/27/19 History nystatin 1 applic TOPICAL TID 01/27/19 01/27/19 History pantoprazole 40 mg PO DAILYBB 01/27/19 01/27/19 History ranitidine HCl 150 mg PO BID 01/27/19 01/27/19 History vit C-E-zinc moc-gklmcd-wpjtgd 1 tab PO QAM 01/27/19 01/27/19 History [[facility]] Patient History Medical History Left groin hernia Vitamin D deficiency (Acute) Tremor (Acute) Tinea corporis (Acute) Osteoporosis (Acute) Oral thrush (Acute) Legally blind (Acute) Hypertension (Acute) Hypermagnesemia (Acute) Gait instability (Acute) Encounter for long-term (current) use of medications (Acute) Chronic reflux esophagitis (Acute) Chronic obstructive pulmonary disease (Acute) Benign positional vertigo (Acute) BMI 34.0-34.9,adult (Acute) Dehydration (Resolved) Vertigo (Resolved) Vertigo (Resolved) Nausea (Resolved) Loss of consciousness (Resolved 03/17/14) Nasal bone fracture (Resolved 03/17/14) Nasal bone fracture (Resolved) Loss of consciousness (Resolved) Vertigo (Resolved) Right foot sprain (Acute) Left calcaneal fracture (Acute) LLQ abdominal pain (Acute) Pulmonary emboli Infected wound DVT (deep venous thrombosis) Dizziness (Acute) Complete heart block (Resolved) Diverticulosis (Chronic) Chest discomfort Cardiac tamponade after RV perforation during pacemaker placement, now resolved Complete heart block now has pacemaker Surgical History Pacemaker (Chronic) Family History Other Diabetes Hypertension Social History Preferred Language: Kazakh Communication Ability: Effective 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 No current abdominal discomfort. Physical Exam Physical Exam: She is alert and oriented x3. Mood affect appear normal. She answered all questions appropriately. HEENT: Sclerae are anicteric. Pupils are equal and reactive to light and accommodation. Extraocular movements were intact. Neuro: Cranial nerves intact Neck: Examination of the submandibular region did not reveal any significant lymphadenopathy. Carotids are palpable bilaterally and free of bruits on ausc ultation. There was no evidence of jugular venous distention. The thyroid was not enlarged. Lungs: Lungs are clear to auscultation bilaterally. There are no rales wheezes or rhonchi. She has normal respiratory effort without use of accessory muscles. There is normal pulmonary excursion. Cardiac: The rhythm was regular. S1 and S2 were normal. There are no murmurs on examination. The PMI was not markedly displaced on palpation. Chest: Well-healed pacemaker in the left upper pectoral area Extremities: Patient has bilateral radial pulses that are equal in intensity. There is no evidence cyanosis or clubbing. There was no evidence of significant peripheral edema bilaterally. Skin: There are no rashes noted on examination today. Results & Data Vital Signs (Past 12 Hours) Vital Signs Temp Pulse Resp BP Pulse Ox 01/29/19 14:58 37.0 C 96 H 17 123/75 93 01/29/19 07:43 36.7 C 71 16 121/79 94 Laboratory Results Abnormal Lab Results 01/29/19 01/29/19 01/29/19 07:25 07:37 07:37 WBC 4.91 RBC 4.44 Hgb 11.9 L Hct 39.0 MCV 87.8 MCH 26.8 MCHC 30.5 L RDW Std Deviation 50.9 H RDW Coeff of Prosper 15.7 H Plt Count 158 MPV 10.0 Immature Gran % (Auto) 0.0 Neut % (Auto) 74.4 Lymph % (Auto) 12.8 [place] % (Auto) 9.8 Eos % (Auto) 2.6 Baso % (Auto) 0.4 Immature Gran # (Auto) 0.00 Neut # (Auto) 3.65 Lymph # (Auto) 0.63 L [place] # (Auto) 0.48 Eos # (Auto) 0.13 Baso # (Auto) 0.02 PT 11.5 INR 1.1 APTT 40.4 H PTT Ratio 1.5 Sodium Potassium Chloride Carbon Dioxide Anion Gap BUN Creatinine Est Cr Clr Drug Dosing Est GFR ( Amer) Est GFR (Non-Af Amer) BUN/Creatinine Ratio Glucose Calcium Total Bilirubin AST ALT Alkaline Phosphatase Total Protein Albumin Globulin Albumin/Globulin Ratio Stl C. diff Tox B Gene Negative Cdiff Gene 01/29/19 07:37 WBC RBC Hgb Hct MCV MCH MCHC RDW Std Deviation RDW Coeff of Prosper Plt Count MPV Immature Gran % (Auto) Neut % (Auto) Lymph % (Auto) [place] % (Auto) Eos % (Auto) Baso % (Auto) Immature Gran # (Auto) Neut # (Auto) Lymph # (Auto) [place] # (Auto) Eos # (Auto) Baso # (Auto) PT INR APTT PTT Ratio Sodium 144 Potassium 3.9 Chloride 113 H Carbon Dioxide 21 Anion Gap 9.0 BUN 7 Creatinine 0.63 Est Cr Clr Drug Dosing 80.7 Est GFR ( Amer) 103.9 Est GFR (Non-Af Amer) 89.6 BUN/Creatinine Ratio 10.5 Glucose 81 Calcium 8.1 L Total Bilirubin 0.5 AST 13 L ALT 13 Alkaline Phosphatase 90 Total Protein 6.3 L Albumin 3.1 L Globulin 3.2 Albumin/Globulin Ratio 1.0 Stl C. diff Tox B Gene Diagnostic Findings Echocardiogram performed 2016 revealed preserved LV systolic function without significant valvular heart disease Complete device interrogation performed today revealed normal sensing threshold parameters on both leads. Minimal pacing overall. Normal device longevity. No detected arrhythmias. ECG Additional Comments: Sinus tachycardia with right bundle branch block
--- NOTE | 2019-01-29 15:33 | Gastroenterology Progress Note ---
Date of Service January 29, 2019 Assessment & Plan (1) SBO (small bowel obstruction): SBO secondary to left groin hernia with surgery planning to fix this once Pradaxa out of system later this week. No clinical evidence of obstruction at present diarrhea--Cdiff neg, WBC nl, cx pending--likely from SBO L groin hernia as above No furthter GI recommendation. Will sign off. Please call for further questions. Subjective cc f/u abd pain, hernia HPI No groin pain, abd pain, n/v. Review of Systems Respiratory: no dyspnea Cardiovascular: no chest pain Physical Exam Constitutional: WD/WN, vitals as above Respiratory: normal respiratory effort, lungs clear to auscultation Cardiovascular: RRR, no murmur, no edema Gastrointestinal (Abdomen): normal bowel sounds, soft, nontender, no hepatosplenomegaly Psychiatric: A+Ox3, euthymic affect Results & Data Vital Signs (Past 12 Hours) Vital Signs Temp Pulse Resp BP Pulse Ox 01/29/19 14:58 37.0 C 96 H 17 123/75 93 01/29/19 07:43 36.7 C 71 16 121/79 94
[2019-01-30] MEDS: SODIUM CHLORIDE 0.9% 1000ML 1,000 ML IV SCH ×2 (02:23→15:22)
[2019-01-30] MEDS: PANTOprazole 40 MG TAB PO SCH (05:15)
[2019-01-30] MEDS: IPRATROPIUM BROMIDE/ALBUTEROL respimat INH INH SCH ×4 (08:18→20:50)
[2019-01-30] MEDS ORDERED: ENOXAPARIN INJ 30 MG/0.3 ML SYR SQ SCH (09:00)
--- NOTE | 2019-01-30 11:19 | Hospitalist Progress Note ---
Date of Service January 30, 2019 Assessment & Plan (1) Abdominal pain: - CT A/P concerning for enteritis vs. SBO, left groin hernia. - Symptoms are likely related to SBO in setting of hernia. - U/a and C. diff were negative. - GI and surgery consulted, appreciate input. Plan for left hernia repair on . - CLD as tolerated, NPO at midnight; IV fluids at 75 cc/hr. - PPI daily & Zantac BID. (2) Left groin hernia: - Per CT A/P; surgery consulted, plan for hernia repair on (delayed procedure due to anticoagulation therapy) - CLD as tolerated; NPO after midnight. - Cardiology consulted, cleared for surgery. (3) Diarrhea: - As noted above; C. diff negative. (4) Elevated lipase: - As noted above; level trended down. (5) Hypertension: - Not currently on home meds. (6) Chronic reflux esophagitis: - PPI daily and Zantac BID. (7) Benign positional vertigo: - Holding home Meclizine, will monitor. (8) Chronic anticoagulation: - In setting of h/o DVT. - Hold home Pradaxa for procedure. (9) DVT (deep venous thrombosis): - Hold Pradaxa for procedure. (10) Asthma: - Continue Combivent as prescribed. (11) Pacemaker: - Implanted in November 2016 for complete heart block. - Monitored as outpatient. (12) Legally blind: - Noted. (13) DVT prophylaxis: - SCDs; holding home Pradaxa for procedure. Dispo: Med/surg; plan for hernia repair tomorrow. Supervising Physician Co-Signing Physician Notes Attending Attestation: Chart reviewed, care plan d/w YEYO Aguilar. I agree w/ the solorzano components of her documentation. Patient for hernia repair tomorrow. Pradaxa remains on hold. Ongoing diarrhea - C diff negative. Suspect diarrhea is related to her hernia. Supportive care while awaiting hernia repair. Brenton Spencer MD Subjective Pt. is doing well overall. Does have left lower quadrant pain extending to the groin/umbilical area. Has diarrhea -- 1-2 loose BMs this morning. Denies N/V, chest pain, SOB. Plan for hernia repair tomorrow. Review of Systems Review of Systems: All systems reviewed & are unremarkable except as noted in HPI & below Constitutional: no fever, no chills, no fatigue, no weakness and no anorexia Respiratory: no cough, no dyspnea, no dyspnea on exertion and no wheezing Cardiovascular: no chest pain, no palpitations and no edema Gastrointestinal: + abdominal pain and + diarrhea/loose stools; no nausea and no vomiting Genitourinary: no difficulty urinating Musculoskeletal: no back pain and no joint pain Integumentary: no non-healing lesions Allergy / Immunological: no rash Physical Exam Physical Exam: General: Resting comfortably in no apparent distress HEENT: NC/AT; PERRLA with EOMI; [place] conjunctiva, MMM. No erythema of posterior pharynx Neck: Supple and nontender Cardiac: RRR Lungs: CTA bilaterally Abdomen: Bowel normoactive X 4; Tender to light palpation on LLQ. Extremities: Warm. No edema present Neuro: No focal weakness Skin: No rash Results & Data Vital Signs (Past 12 Hours) Vital Signs Temp Pulse Resp BP Pulse Ox 01/30/19 07:08 36.7 C 82 19 135/80 92 PG Care Time/CCT Total # of Minutes Spent Total Time Spent with Patient: Total time spent is greater than 50% in coordination of care (as documented) at patient's floor/unit and/or counseling patient: (1) Abdominal pain Abdominal location: unspecified location Qualified Code(s): R10.9 - Unspecified abdominal pain
[2019-01-30] MEDS: ACETAMINOPHEN 325 MG TAB PO PRN ×2 (15:23→22:01)
--- NOTE | 2019-01-30 16:10 | Surgery Progress Note ---
Date of Service pt is stable, no abdominal pain, January 30, 2019 Assessment & Plan (1) Left groin hernia: pt is a 73 year-old female who was admitted to hospital for abdominal pain and diarrhea. CT scan showing left inguinal possible femoral hernia containing loop of small bowel however no signs of obstruction. Possible colitis vs partial SBO. + bowel movements , liquid, watery. - c. diff. No leukocytosis. abdomen soft, nondistended, no rigidity, mild tenderness in LLQ Plan: Planned for open left groin hernia repair with mesh today however patient has been receiving her Pradaxa (yesterday BID and this mornings dose). Surgery cancelled for today and rescheduled for . Will need to hold Pradaxa. Discussed with patient, as she is stable and no emergent need for surgery would prefer to hold Pradaxa to avoid increased bleeding during procedure. Patient understood and agreed. May have clear liquids Continue medical management NPO after midnight Monday Discussed with Dr. Catalan who agrees with above doing fine, pt will have open repair left femoral hernia with mesh tomorrow, D/W benefits, risks and alternatives of olya surgery, pt understood, she agrees with the surgery.I answered all questions, Subjective cc f/u abd pain, hernia HPI No groin pain, abd pain, n/v. Physical Exam Constitutional: WD/WN, vitals as above well developed and well nourished ENMT: external ear and nose normal, oropharynx normal Neck: trachea midline, no thyromegaly Respiratory: normal respiratory effort, lungs clear to auscultation normal respiratory effort Cardiovascular: RRR, no murmur, no edema Gastrointestinal (Abdomen): normal bowel sounds, soft, nontender, no hepatosplenomegaly Neurologic: awake Psychiatric: Orientation: alert and oriented x 3 Results & Data Vital Signs (Past 12 Hours) Vital Signs Temp Pulse Resp BP Pulse Ox 01/30/19 14:55 36.5 C 74 17 135/84 96 01/30/19 07:08 36.7 C 82 19 135/80 92
[2019-01-31] MEDS: SODIUM CHLORIDE 0.9% 1000ML 1,000 ML IV SCH (03:05)
[2019-01-31] MEDS: PANTOprazole 40 MG TAB PO SCH (05:34)
[2019-01-31] MEDS ORDERED: PROPOFOL IV EMULSION 10 MG/ML 20 ML VIAL IV ONE (07:12)
[2019-01-31] MEDS ORDERED: ONDANSETRON INJ 2 MG/ML 2 ML VIAL ONE (07:12)
[2019-01-31] MEDS ORDERED: LIDOCAINE HCL 2% 2 ML VIAL/AMP(20MG/ML) INFIL ONE (07:12)
[2019-01-31] MEDS ORDERED: fentaNYL citrate 100 MCG/2 ML VIAL ONE (07:12)
[2019-01-31] MEDS ORDERED: DEXAMETHASONE SOD INJ 4 MG/ML VIAL ONE (07:12)
[2019-01-31] MEDS ORDERED: BACITRACIN OINT 15 GM TUBE ONE (07:27)
[2019-01-31] MEDS ORDERED: BUPIVACAINE 0.5 % 5 MG/1 ML MPF 30ML VIAL ONE (07:27)
[2019-01-31] MEDS ORDERED: LIDOCAINE HCL 1% 20 ML VIAL ONE (07:27)
[2019-01-31] MEDS ORDERED: CEFAZOLIN 2,000 MG/15 ML IV PUSH IV ONE (07:38)
[2019-01-31] MEDS ORDERED: CEFAZOLIN 2000MG 2,000 MG/15 ML SYR IV ONE (07:40)
--- NOTE | 2019-01-31 07:40 | History & Physical Bridge Note ---
Date of Service January 31, 2019 History & Physical Bridge Note I have examined the patient, reviewed the History & Physical and in the interval since the performance of the History & Physical I have noted the following changes of clinical significance: no changes noted Supervising Physician Co-Signing Physician Notes Attending addendum: I have physically seen this patient, have supervised the medical residents activities, and agree with the H&P unless as otherwise noted. Assessment and Plan: Enteritis/ileus versus early PSBO-- NPO. NSS at 100 mils per hour. Zofran 4 mg IV every 6 hours PRN. Famotidine 20 mg IV every 12 hours. Consult GI Remainder of orders and notations as noted.
[2019-01-31] MEDS ORDERED: PROMETHAZINE HCL 6.25 MG in SODIUM CHLORIDE 0.9% 50 ML IV PRN (08:12)
[2019-01-31] MEDS ORDERED: ATROPINE SULFATE 0.1 MG/ML 10ML SYR IV PRN (08:12)
[2019-01-31] MEDS ORDERED: ONDANSETRON INJ 2 MG/ML 2 ML VIAL IV PRN (08:12)
[2019-01-31] MEDS ORDERED: LABETALOL HCL IV 5 MG/ML 20ML IV PRN (08:12)
[2019-01-31] MEDS ORDERED: GLYCOPYRROLATE 0.2 MG/ML VIAL ONE (08:51)
[2019-01-31] MEDS ORDERED: NEOSTIGMINE METHYLSULFATE 5 MG/5 ML SYR ONE (08:51)
[2019-01-31] MEDS ORDERED: ROCURONIUM BROMIDE 10 MG/ML 5 ML VIAL ONE (08:51)
--- NOTE | 2019-01-31 09:08 | Post Operative Brief Note ---
Immediate Post Op Note v1 Date of Surgery January 31, 2019 Pre & Post Diagnosis Operation Date: 01/31/19 08:00 Pre-Op Diagnosis: LEFT FEMORAL HERNIA Post-Op Diagnosis: LEFT direct inguinal hernia Procedure Operation Date: 01/31/19 08:00 Actual Procedures p Open Repair Left direct inguinal Hernia with Mesh(Left) - Luca Catalan MD Surgeon Luca Catalan MD Peat Shredder Tender surgical assistant Estimated Blood Loss 5 Findings See Below left direct inguinal hernia Fluids 1200ml Specimens none Drains Mercedes Catheter Anesthesia Type General Complications none Disposition Accompanied Patient To Recovery: Yes Disposition: Recovery Room Overlapping Procedure I was immediately available: during the entire case.
[2019-01-31] MEDS: HYDROmorphone INJ 1 MG/ML SYRINGE IV PRN ×4 (09:19→09:38)
--- NOTE | 2019-01-31 09:53 | Anesthesiology Progress Note ---
Date of Service January 31, 2019 Anesthesia Post Procedure Vital Signs Vital Signs: Temp Pulse Resp BP Pulse Ox 01/31/19 09:50 66 19 118/97 95 01/31/19 09:40 64 14 120/59 L 99 01/31/19 09:30 63 16 119/64 98 01/31/19 09:20 36.5 C 66 16 129/71 99 01/31/19 07:10 36.6 C 72 18 155/90 H 96 01/31/19 06:47 36.5 C 69 20 124/81 94 01/31/19 06:05 36.7 C 70 17 127/81 91 01/30/19 23:03 36.3 C L 67 18 96/60 L 93 01/30/19 14:55 36.5 C 74 17 135/84 96 Pain Intensity Lower Abdomen: Pain Intensity: 2 Left Lower Abdomen: Pain Intensity: 6 Left Groin: Pain Intensity: 4 Transfer of Care Handoff Completed per policy Notes Mental Status: alert / awake / arousable Patient Amnestic to Procedure: Yes Nausea / Vomiting: adequately controlled Pain: adequately controlled Airway Patency, RR, SpO2: stable & adequate BP & HR: stable & adequate Hydration State: stable & adequate Anesthetic Complications: no major complications apparent
[2019-01-31] MEDS ORDERED: NITROGLYCERIN SL 0.4 MG/TAB TAB SL PRN (10:08)
[2019-01-31] MEDS ORDERED: MECLIZINE HCL 25 MG TAB PO PRN (10:08)
[2019-01-31] MEDS: IPRATROPIUM BROMIDE/ALBUTEROL respimat INH INH SCH ×4 (10:12→20:25)
[2019-01-31 11:05] LABS: Hemoglobin 13.5 g/dL (12.0-16.0); Mean Corpuscular Hgb Conc 31.4 g/dL (32-36); Mean Corpuscular Volume 85.5 fL (80-100); Mean Platelet Volume 9.9 fL (7.4-10.4); Platelet Count 180 K/uL (130-400); RDW Coefficient of Variation 15.5 % (11.5-14.5); RDW Standard Deviation 48.3 fL (36.4-46.3); Red Blood Count 5.03 M/uL (4.2-5.4); White Blood Count 8.36 K/uL (4.8-10.8)
[2019-01-31] MEDS: CALCIUM 600MG + VIT D 400 IU TAB PO SCH (11:19)
[2019-01-31] MEDS ORDERED: OXYCODONE/ACETAMINOPHEN 5mg/325mg TAB PO PRN (11:22)
[2019-01-31] MEDS ORDERED: MoRPHine SULFATE 2 MG/ML CARP IV PRN (11:22)
[2019-01-31 11:29] LABS: Albumin Level 3.4 gm/dl (3.4-5.0); BUN Creatinine Ratio 6.1 (10-20); Calcium 8.6 mg/dl (8.5-10.1); Creatinine Clr Calc Pharmacy 65.5 ml/min; Est GFR (African American) 89.4; Est GFR (Non-African American) 77.1
[2019-01-31] MEDS ORDERED: SODIUM CHLORIDE 0.65% NA SOLN 45 ML (OCEAN) SCH (11:30)
[2019-01-31 11:32] LABS: Albumin Globulin Ratio 0.9 (0.9-2); Bilirubin,Total 0.6 mg/dl (0.2-1); Globulin 3.6 gm/dl (2.5-4.0)
[2019-01-31] MEDS: OXYCODONE/ACETAMINOPHEN 5mg/325mg TAB PO PRN ×3 (11:41→20:24)
--- NOTE | 2019-01-31 12:29 | Hospitalist Progress Note ---
Date of Service January 31, 2019 Assessment & Plan (1) Abdominal pain: - CT A/P concerning for SBO, also showed left groin hernia. - Symptoms likely related to SBO in setting of hernia. - C. diff was negative; continues to have diarrhea. - GI and surgery both consulted, s/p left hernia repair this morning. - Regular diet as tolerated following procedure; d/c IV fluids. - PPI daily & Zantac BID. (2) Left groin hernia: - Per CT A/P; surgery consulted, s/p hernia repair today. - Cardiology consulted, was cleared for surgery. (3) Diarrhea: - As noted above; C. diff negative. - Consider repeat abd imaging to rule out obstruction in setting of ongoing diarrhea. (4) Elevated lipase: - As noted above; level now WNL. (5) Hypertension: - Not currently on home meds. (6) Chronic reflux esophagitis: - PPI daily and Zantac BID. (7) Benign positional vertigo: - Holding home Meclizine, has been asymptomatic. (8) Chronic anticoagulation: - In setting of h/o DVT. - Hold home Pradaxa -- will resume this evening per surgery. (9) DVT (deep venous thrombosis): - Hold Pradaxa for procedure - will resume this evening per surgery. (10) Asthma: - Continue Combivent as prescribed. (11) Pacemaker: - Implanted in November 2016 for complete heart block. - Monitored as outpatient. (12) Legally blind: - Noted. (13) DVT prophylaxis: - SCDs; will resume home Pradaxa this evening per surgery. Dispo: Med/surg; discharge likely over next 24-48 hours pending pain control following hernia repair. Pt. will benefit from home nursing services after discharge. Supervising Physician Co-Signing Physician Notes Attending Attestation: Chart reviewed, care plan d/w YEYO Aguilar. I agree w/ the solorzano components of her documentation. s/p left direct inguinal hernia repair today. Post-op supportive care and pain control. Resume pradaxa tonight. Diet management per surgery. Other medical issues stable. Brenton Spencer MD Subjective Pt. has increased LLQ pain following procedure -- rates pain as a 10/10 on pain scale. Is having ongoing diarrhea. Denies N/V. Surgery following, appreciate input. Family was also present at bedside, updated with plan of care. Review of Systems Review of Systems: All systems reviewed & are unremarkable except as noted in HPI & below Constitutional: no fever, no chills, no fatigue, no weakness and no anorexia Respiratory: no cough, no dyspnea and no dyspnea on exertion Cardiovascular: no chest pain, no palpitations and no edema Gastrointestinal: + abdominal pain and + diarrhea/loose stools; no nausea and no vomiting Genitourinary: no difficulty urinating Musculoskeletal: no back pain and no joint pain Integumentary: no non-healing lesions Physical Exam Physical Exam: General: Resting comfortably in no apparent distress HEENT: NC/AT; PERRLA with EOMI; [place] conjunctiva, MMM. No erythema of posterior pharynx Neck: Supple and nontender Cardiac: RRR Lungs: CTA bilaterally Abdomen: Bowel normoactive X 4; Did not palpate abd due to severe discomfort following surgery. Extremities: Warm. No edema present Neuro: No focal weakness Skin: No rash Results & Data Vital Signs (Past 12 Hours) Vital Signs Temp Pulse Pulse Resp BP BP Pulse Ox 01/31/19 11:55 36.7 C 76 16 122/74 92 01/31/19 11:00 36.6 C 79 16 129/79 91 01/31/19 10:39 36.9 C 71 16 126/77 94 01/31/19 10:05 36.8 C 69 18 129/83 97 01/31/19 10:01 36.6 C 65 16 132/66 95 01/31/19 09:50 66 19 118/97 95 01/31/19 09:40 64 14 120/59 L 99 01/31/19 09:30 63 16 119/64 98 01/31/19 09:20 36.5 C 66 16 129/71 99 01/31/19 07:10 36.6 C 72 18 155/90 H 96 01/31/19 06:47 36.5 C 69 20 124/81 94 01/31/19 06:05 36.7 C 70 17 127/81 91 Laboratory Results 01/31/19 01/31/19 Range/Units 10:49 10:49 WBC 8.36 (4.8-10.8) K/uL RBC 5.03 (4.2-5.4) M/uL Hgb 13.5 (12.0-16.0) g/dL Hct 43.0 (37-47) % MCV 85.5 (80-100) fL MCH 26.8 (25-34) pg MCHC 31.4 L (32-36) g/dL RDW Std Deviation 48.3 H (36.4-46.3) fL RDW Coeff of Prosper 15.5 H (11.5-14.5) % Plt Count 180 (130-400) K/uL MPV 9.9 (7.4-10.4) fL Sodium 144 (136-145) mmol/L Potassium 4.0 (3.5-5.1) mmol/L Chloride 113 H (98-107) mmol/L Carbon Dioxide 26 (21-32) mmol/L Anion Gap 5.0 (3-11) BUN 5 L (7-18) mg/dl Creatinine 0.77 (0.6-1.2) mg/dl Est Cr Clr Drug Dosing 65.5 ml/min Est GFR ( Amer) 89.4 Est GFR (Non-Af Amer) 77.1 BUN/Creatinine Ratio 6.1 L (10-20) Glucose 108 H (70-99) mg/dl Calcium 8.6 (8.5-10.1) mg/dl Magnesium 2.0 (1.8-2.4) mg/dl Total Bilirubin 0.6 (0.2-1) mg/dl AST 66 H (15-37) U/L ALT 42 (12-78) U/L Alkaline Phosphatase 96 (45-117) U/L Total Protein 7.0 (6.4-8.2) gm/dl Albumin 3.4 (3.4-5.0) gm/dl Globulin 3.6 (2.5-4.0) gm/dl Albumin/Globulin Ratio 0.9 (0.9-2) PG Care Time/CCT Total # of Minutes Spent Total Time Spent with Patient: Total time spent is greater than 50% in coordination of care (as documented) at patient's floor/unit and/or counseling patient: (1) Abdominal pain Abdominal location: unspecified location Qualified Code(s): R10.9 - Unspecified abdominal pain
[2019-01-31] MEDS ORDERED: IPRATROPIUM BROMIDE/ALBUTEROL respimat INH INH SCH (13:00)
--- NOTE | 2019-01-31 13:19 | Operative Report ---
DATE OF OPERATION: 01/31/2019 PREOPERATIVE DIAGNOSIS: Left femoral hernia. POSTOPERATIVE DIAGNOSIS: Left direct inguinal hernia. OPERATION: Open repair, left direct inguinal hernia with mesh. SURGEON: Luca Catalan MD ANESTHESIA: General. ESTIMATED BLOOD LOSS: About 5 mL. FINDINGS: Left direct inguinal hernia. COMPLICATIONS: None. INDICATIONS FOR THE PROCEDURE: This is a 73-year-old female who presented with left inguinal pain and the patient had a CT scan diagnosis of left femoral hernia and patient was required to do open repair of left femoral hernia, possible mesh. I did talk to the patient about the benefits, the risks, alternate procedures. I indicated the risks may include, but not limited such as bleeding, infection, hernia recurrence, chronic pain, myocardial infarction, DVT, stroke, and even . The patient understands. She signed informed consent and I answered all questions. DETAILS OF PROCEDURE: We brought in the patient to the OR, put the patient in the supine position. The patient received SCD on bilateral legs to prevent DVT. Also the patient received 2 grams Ancef IV for prophylactic antibiotic. The patient received general anesthesia without difficulty. The abdomen was prepped and draped in routine sterile fashion after timeout. I made an about 4 cm incision on the left inguinal area, opened subcutaneous layer, reached the external oblique, opened the external oblique fasicia fashion, mobilized the round ligament, and then we found the patient had a direct hernia. We mobilized the hernia sac and then we reversed the hernia sac back to the abdominal cavity. We chose a large plug to plug the hernia sac and used 2-0 Prolene and narrowed the hernia at the neck. Then we chose 3 x 5 cm mesh to reinforce the posterior wall and used 2-0 Prolene suture mesh to left inguinal ligament and another 2-0 Prolene mesh to the conjoined tendon and the muscle layer. Two sutures met together, tied, the mesh seated nicely, no tension. Hemostasis was obtained. Then I closed the external oblique fascia by using 2-0 Vicryl continuous running, closed subcutaneous layer by using 2-0 Vicryl continuous running, closed skin by using 4-0 Vicryl continuous running. We put the dressing on. The patient tolerated the procedure well. All the instrument, needle, sponge count were correct x2 at the end of case. The patient transferred to recovery room in stable condition. I attest to the content of the Intraoperative Record and any orders documented therein. Any exceptions are noted below. [facility]
[2019-01-31] MEDS: NYSTATIN POWDER 15GM BTL SCH ×2 (13:33→20:25)
[2019-01-31] MEDS: DABIGATRAN ETEXILATE 75 MG CAP PO SCH (17:07)
[2019-01-31] MEDS: LIDOCAINE 2% JELLY 5 ML TUBE SCH (20:25)
[2019-01-31] MEDS: CHOLECALCIFEROL 1,000 UNITS TAB PO SCH (20:26)
[2019-01-31] MEDS ORDERED: FLUTICASONE PROPIONATE NA SPR 16 GM BTL SCH (21:00)
[2019-01-31] MEDS ORDERED: DOCUSATE SODIUM 100 MG CAP PO SCH (21:00)
[2019-02-01] MEDS: OXYCODONE/ACETAMINOPHEN 5mg/325mg TAB PO PRN ×3 (03:38→15:25)
[2019-02-01] MEDS: DABIGATRAN ETEXILATE 75 MG CAP PO SCH ×2 (05:51→19:03)
[2019-02-01] MEDS: PANTOprazole 40 MG TAB PO SCH (05:52)
[2019-02-01] MEDS: IPRATROPIUM BROMIDE/ALBUTEROL respimat INH INH SCH ×4 (07:18→19:03)
[2019-02-01 07:33] LABS: Hemoglobin 11.9 g/dL (12.0-16.0); Mean Corpuscular Hgb Conc 31.3 g/dL (32-36); Mean Corpuscular Volume 84.8 fL (80-100); Mean Platelet Volume 9.8 fL (7.4-10.4); Platelet Count 193 K/uL (130-400); RDW Coefficient of Variation 15.7 % (11.5-14.5); RDW Standard Deviation 48.7 fL (36.4-46.3); Red Blood Count 4.48 M/uL (4.2-5.4); White Blood Count 7.31 K/uL (4.8-10.8)
--- NOTE | 2019-02-01 08:03 | Surgery Progress Note ---
Date of Service F/P S/P open repair left inguinal hernia with mesh, pt is stable, pt has some incision pain, good control pain by IV pain mediicne. pt tolearted regular diet, no nausea, no vomiting, February 01, 2019 Assessment & Plan (1) Left groin hernia: pt is a 73 year-old female who was admitted to hospital for abdominal pain and diarrhea. CT scan showing left inguinal possible femoral hernia containing loop of small bowel however no signs of obstruction. Possible colitis vs partial SBO. + bowel movements , liquid, watery. - c. diff. No leukocytosis. abdomen soft, nondistended, no rigidity, mild tenderness in LLQ Plan: Planned for open left groin hernia repair with mesh today however patient has been receiving her Pradaxa (yesterday BID and this mornings dose). Surgery cancelled for today and rescheduled for . Will need to hold Pradaxa. Discussed with patient, as she is stable and no emergent need for surgery would prefer to hold Pradaxa to avoid increased bleeding during procedure. Patient understood and agreed. May have clear liquids Continue medical management NPO after midnight Monday Discussed with Dr. 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 Subjective cc f/u abd pain, hernia HPI No groin pain, abd pain, n/v. Physical Exam Constitutional: WD/WN, vitals as above well developed ENMT: external ear and nose normal, oropharynx normal Neck: trachea midline, no thyromegaly Respiratory: normal respiratory effort, lungs clear to auscultation Cardiovascular: RRR, no murmur, no edema Gastrointestinal (Abdomen): soft, NT, ND, the incision intact, no redness, Neurologic: patellar DTR's 2+ bilat, sensation intact Psychiatric: Orientation: alert and oriented x 3 Results & Data Vital Signs (Past 12 Hours) Vital Signs Temp Pulse Resp BP BP Pulse Ox 02/01/19 07:06 36.7 C 62 94 H 118/75 94 06/21/19 03:43 36.6 C 79 17 132/81 91 01/31/19 23:07 36.7 C 66 18 108/70 93 Laboratory Results Abnormal lab results 01/31/19 01/31/19 02/01/19 Range/Units 10:49 10:49 07:18 Hgb 11.9 L (12.0-16.0) g/dL MCHC 31.4 L 31.3 L (32-36) g/dL RDW Std Deviation 48.3 H 48.7 H (36.4-46.3) fL RDW Coeff of Prosper 15.5 H 15.7 H (11.5-14.5) % Chloride 113 H (98-107) mmol/L BUN 5 L (7-18) mg/dl BUN/Creatinine Ratio 6.1 L (10-20) Glucose 108 H (70-99) mg/dl AST 66 H (15-37) U/L
[2019-02-01] MEDS: CEROVITE ADV FORMULA TAB PO SCH (08:24)
[2019-02-01] MEDS: CALCIUM 600MG + VIT D 400 IU TAB PO SCH (08:24)
[2019-02-01] MEDS: CHOLECALCIFEROL 1,000 UNITS TAB PO SCH ×2 (08:24→21:55)
[2019-02-01] MEDS: NYSTATIN POWDER 15GM BTL SCH ×3 (08:24→21:54)
[2019-02-01] MEDS: LIDOCAINE 2% JELLY 5 ML TUBE SCH ×2 (08:45→21:54)
[2019-02-01] MEDS ORDERED: DOCUSATE SODIUM 100 MG CAP PO SCH (09:00)
--- NOTE | 2019-02-01 10:41 | Anesthesiology Progress Note ---
Date of Service February 01, 2019 Anesthesia Post Procedure Vital Signs Vital Signs: Temp Pulse Pulse Resp BP BP Pulse Ox 02/01/19 07:06 36.7 C 62 94 H 118/75 94 02/01/19 03:43 36.6 C 79 17 132/81 91 01/31/19 23:07 36.7 C 66 18 108/70 93 01/31/19 18:45 37 C 72 14 128/66 97 01/31/19 15:06 36.5 C 75 21 109/66 94 01/31/19 13:08 37.1 C 76 17 107/67 92 01/31/19 11:55 36.7 C 76 16 122/74 92 01/31/19 11:00 36.6 C 79 16 129/79 91 Pain Intensity Lower Abdomen: Pain Intensity: 2 Left Lower Abdomen: Pain Intensity: 6 Left Groin: Pain Intensity: 4 Notes Mental Status: alert / awake / arousable and participated in evaluation Patient Amnestic to Procedure: Yes Nausea / Vomiting: adequately controlled Pain: adequately controlled Airway Patency, RR, SpO2: stable & adequate BP & HR: stable & adequate Hydration State: stable & adequate Anesthetic Complications: no major complications apparent
--- NOTE | 2019-02-01 12:38 | Hospitalist Progress Note ---
Date of Service February 01, 2019 Assessment & Plan (1) Abdominal pain: - CT A/P concerning for SBO, also showed left groin hernia. - Symptoms were likely related to SBO in setting of hernia. - C. diff was negative; diarrhea now resolved. - GI and surgery both consulted; s/p left hernia repair on 01/31, POD#1. - Regular diet as tolerated. - PPI daily & Zantac BID. (2) Left groin hernia: - Per CT A/P; surgery consulted, s/p hernia repair on 01/31. - Cardiology consulted, cleared pre-operatively. (3) Diarrhea: - As noted above; C. diff negative. - Diarrhea now resolved. (4) Benign positional vertigo: - On Meclizine BID scheduled at home with additional dose in the afternoon if needed. - Developed dizziness/nausea this morning -- likely related to vertigo. - Will resume Meclizine at BID dosing. - Orthostatic vital signs also pending. (5) Elevated lipase: - As noted above; level now WNL. (6) Hypertension: - Not currently on home meds. (7) Chronic reflux esophagitis: - PPI daily and Zantac BID. (8) Chronic anticoagulation: - In setting of h/o DVT. - Resumed Pradaxa post op. (9) DVT (deep venous thrombosis): - Resumed Pradaxa post op. (10) Asthma: - Continue Combivent as prescribed. (11) Pacemaker: - Implanted in November 2016 for complete heart block. - Monitored as outpatient. (12) Legally blind: - Noted. (13) DVT prophylaxis: - SCDs; resumed home Pradaxa. Dispo: Med/surg; discharge likely on 02/02 pending improvement in dizziness. Will need home nursing support. Supervising Physician Co-Signing Physician Notes Attending Attestation: Chart reviewed, care plan d/w YEYO Aguilar. I agree w/ the solorzano components of her documentation. s/p left direct inguinal hernia repair - POD #1. Diet management per surgery. Had dizziness today - likely vertigo from BPV. Agree w/ meclizine. Supportive care. Brenton Spencer MD Subjective Pt. has dizziness, nausea this morning. She has h/o vertigo, takes Meclizine BID at home scheduled with additional dose in the afternoon if needed. Her last dose of Meclizine was on Monday. Denies specific symptoms of vertigo but reports this usually happens after holding Meclizine. She denies abd pain, N/V. Diarrhea now resolved. Plan for discharge likely on 02/02/19 with home nursing support. Review of Systems Review of Systems: All systems reviewed & are unremarkable except as noted in HPI & below Constitutional: no fever, no chills, no fatigue, no weakness and no anorexia Respiratory: no cough, no dyspnea and no dyspnea on exertion Cardiovascular: + lightheadedness; no chest pain, no palpitations, no syncope and no edema Gastrointestinal: + nausea; no abdominal pain, no vomiting, no constipation and no diarrhea/loose stools Genitourinary: no difficulty urinating Musculoskeletal: no back pain and no joint pain Integumentary: no non-healing lesions Neurologic: + dizziness Physical Exam Physical Exam: General: Resting comfortably HEENT: NC/AT; PERRLA with EOMI; [place] conjunctiva, MMM. Neck: Supple and nontender Cardiac: RRR Lungs: CTA bilaterally Abdomen: Bowel normoactive X 4; nontender to light palpation. Extremities: Warm. No edema present Neuro: No focal weakness Skin: No rash Results & Data Vital Signs (Past 12 Hours) Vital Signs Temp Pulse Pulse Resp BP BP Pulse Ox 02/01/19 11:19 36.5 C 64 15 120/73 93 02/01/19 07:06 36.7 C 62 94 H 118/75 94 02/01/19 03:43 36.6 C 79 17 132/81 91 Laboratory Results 02/01/19 02/01/19 Range/Units 07:18 07:18 WBC 7.31 (4.8-10.8) K/uL RBC 4.48 (4.2-5.4) M/uL Hgb 11.9 L (12.0-16.0) g/dL Hct 38.0 (37-47) % MCV 84.8 (80-100) fL MCH 26.6 (25-34) pg MCHC 31.3 L (32-36) g/dL RDW Std Deviation 48.7 H (36.4-46.3) fL RDW Coeff of Prosper 15.7 H (11.5-14.5) % Plt Count 193 (130-400) K/uL MPV 9.8 (7.4-10.4) fL Hepatitis C Ab Screen Neg (Neg) PG Care Time/CCT Total # of Minutes Spent Total Time Spent with Patient: Total time spent is greater than 50% in coordination of care (as documented) at patient's floor/unit and/or counseling patient: (1) Abdominal pain Abdominal location: unspecified location Qualified Code(s): R10.9 - Unspecified abdominal pain
[2019-02-01] MEDS: MECLIZINE HCL 25 MG TAB PO SCH (21:55)
[2019-02-02] MEDS: DABIGATRAN ETEXILATE 75 MG CAP PO SCH (06:08)
[2019-02-02] MEDS: PANTOprazole 40 MG TAB PO SCH (06:08)
[2019-02-02] MEDS: IPRATROPIUM BROMIDE/ALBUTEROL respimat INH INH SCH (07:15)
[2019-02-02 07:16] LABS: Hematocrit (blood only) 40.1 % (37-47); Hemoglobin 12.5 g/dL (12.0-16.0); Mean Corpuscular Hgb Conc 31.2 g/dL (32-36); Mean Corpuscular Volume 85.3 fL (80-100); Mean Platelet Volume 10.1 fL (7.4-10.4); Platelet Count 190 K/uL (130-400); RDW Coefficient of Variation 15.7 % (11.5-14.5); RDW Standard Deviation 48.9 fL (36.4-46.3); White Blood Count 7.01 K/uL (4.8-10.8)
[2019-02-02 07:44] LABS: BUN Creatinine Ratio 12.5 (10-20); Calcium 8.5 mg/dl (8.5-10.1); Creatinine Clr Calc Pharmacy 53.7 ml/min; Est GFR (African American) 69.4; Est GFR (Non-African American) 59.8; Potassium 3.7 mmol/L (3.5-5.1)
[2019-02-02] MEDS: OXYCODONE/ACETAMINOPHEN 5mg/325mg TAB PO PRN (08:36)
[2019-02-02] MEDS: CEROVITE ADV FORMULA TAB PO SCH (08:37)
[2019-02-02] MEDS: MECLIZINE HCL 25 MG TAB PO SCH (08:37)
[2019-02-02] MEDS: LIDOCAINE 2% JELLY 5 ML TUBE SCH (08:37)
[2019-02-02] MEDS: CHOLECALCIFEROL 1,000 UNITS TAB PO SCH (08:37)
[2019-02-02] MEDS: NYSTATIN POWDER 15GM BTL SCH (08:37)
[2019-02-02] MEDS: CALCIUM 600MG + VIT D 400 IU TAB PO SCH (08:37)
--- NOTE | 2019-02-02 10:19 | Surgery Progress Note ---
Date of Service February 02, 2019 Assessment & Plan (1) Left groin hernia: pod 3 doing well from surgery perspective ok for d/c when ok with primary team. instructions given. Subjective doing well/no new complaints. david diet pain control adequate Physical Exam Physical Exam: alert. oriented. nad abd: soft. expected tenderness. Results & Data Vital Signs (Past 12 Hours) Vital Signs Temp Pulse Resp BP Pulse Ox 02/02/19 06:59 36.6 C 73 15 126/78 92 02/01/19 22:49 36.8 C 74 16 102/65 95
--- NOTE | 2019-02-02 14:18 | Discharge Summary ---
Date of Service February 02, 2019 Admission HPI Per Admitting Provider 73 yo F with history of complete heart block s/p pacer,previous h/o cardiac tamponade secondary to RV perforation following pacer placement, Asthma, SBO (1998) Hernia ( 3 years ago), Hypertension, degenerative disc disease, osteoporosis presenting with diarrhea, abdominal discomfort. Patient reports she woke 6 am with diarrhea ( 5-6 x), watery, no obvious blood, intermittent abdominal discomfort, lasting hrs. LLQ, Left groin . She tried "Charcoal gas" which gave her some relief however subsequently she felt bulge in left lower quadrant. She also report chills, n/v, lightheadedness. The evening before symptoms started , she reports she ate a cheeseburger a [employer] carnival. Her family had same food, but did not get similar symptoms. In the ED, Patient arrived afebrile, VSS, CBC unremarkable, electrolyte wnl, LFTS unremarkable, elevated Lipase 519 , neg UA, CXR unremarkable, CT abdomen showing findings of mildly dilated small bowel suggestive of either enteritis or SBO per radiology report in addition to finding of Left groin hernia containing a small bowel loop without evidence of obstruction. Admission Exam Per Admitting Provider GENERAL APPEARANCE: alert and cooperative, and appears to be in no acute distress. HEAD: normocephalic. EYES: PERRL, EOMI, vision significantly impaired EARS: hearing grossly intact. NOSE: No nasal discharge. NECK: Neck supple, non-tender without lymphadenopathy CARDIAC: Normal S1 and S2. No S3, S4 or murmurs. Rhythm is regular LUNGS: Clear to auscultation and percussion without rales, rhonchi, wheezing or diminished breath sounds. ABDOMEN: Positive bowel sounds. Soft,LLQ tenderness to palpation, no rebound no guarding LOWER EXTREMITY: no edema NEUROLOGICAL: CN II-XII grossly intact. Strength and sensation symmetric and grossly intact throughout. SKIN: Skin normal color, texture and turgor with no lesions or eruptions. Principal Diagnosis Abdominal Pain secondary to Left Hernia Discharge Exam General: Resting comfortably HEENT: NC/AT; PERRLA with EOMI; [place] conjunctiva, MMM. Neck: Supple and nontender Cardiac: RRR Lungs: CTA bilaterally Abdomen: Bowel normoactive X 4; nontender to light palpation. Extremities: Warm. No edema present Neuro: No focal weakness Skin: No rash Discharge Data Allergies Allergy/AdvReac Type Severity Reaction Status Date / Time camphor Allergy Unknown SHORTNESS Unverified 02/08/19 08:12 OF BREATH eucalyptus Allergy Unknown SHORTNESS Unverified 02/08/19 08:12 OF BREATH menthol Allergy Unknown SHORTNESS Unverified 02/08/19 08:12 OF BREATH petrolatum,white Allergy Unknown Unverified 02/08/19 08:12 [From Vicks Vaporub] turpentine oil Allergy Unknown Unverified 02/08/19 08:12 [From Vicks Vaporub] aspirin AdvReac Mild ABD. PAIN Verified 02/08/19 08:12 AND VOMITING Consultations 01/28/19 07:03 Consult Case Management - Discharge Planning Routine Consult Gastroenterology Routine 01/28/19 15:51 Consult General Surgery Routine 01/28/19 17:09 Consult Cardiology Routine Procedures Performed Operation Date: 01/31/19 08:00 Actual Procedures p Open Repair Left Femoral Hernia with Mesh(Left) - Luca Catalan MD Ordered Studies 01/27/19 16:10 CT abd pelvis IV con only Stat Hospital Course (1) Abdominal pain: CT A/P concerning for SBO, also showed left groin hernia. Symptoms were likely related to SBO in setting of hernia. C. diff was negative; diarrhea now resolved. GI and surgery both consulted; s/p left hernia repair on 01/31, POD#2. Tolerating regular diet. PPI daily & Zantac BID. (2) Left groin hernia: Per CT A/P; surgery consulted, s/p hernia repair on 01/31. Cardiology consulted, was cleared pre-operatively. (3) Diarrhea: As noted above; C. diff negative. Diarrhea now resolved. (4) Benign positional vertigo: On Meclizine BID scheduled at home with additional dose in the afternoon if needed. Developed dizziness/nausea on 02/01 -- likely related to vertigo. Resumed scheduled Meclizine with resolution of symptoms. (5) Elevated lipase: As noted above; level now WNL. (6) Hypertension: Not currently on home meds. (7) Chronic reflux esophagitis: PPI daily and Zantac BID. (8) Chronic anticoagulation: In setting of h/o DVT. Resumed Pradaxa post op. (9) DVT (deep venous thrombosis): Resumed Pradaxa post op. (10) Asthma: Continued Combivent as prescribed. ?COPD -- prescribed Advair at discharge due to chronic cough. Will need to follow up with PCP to discuss obtaining PFTs. (11) Pacemaker: Implanted in November 2016 for complete heart block. Monitored as outpatient. (12) Legally blind: Noted. (13) DVT prophylaxis: SCDs; resumed home Pradaxa. Stable for discharge to home on 02/02/19. Home nursing support arranged. Total Time Total Time Spent Total Time Spent (In Minutes): >30 minutes Total Time Includes: Examination of the Patient, Discharge Planning, Medication Reconciliation, Communication With Other Providers and Other Discharge Plan Discharge Items Patient Disposition: Home - Home Health Services Reason For Visit: ABDOMINAL PAIN Discharge Diagnosis: S/P open repair left inguinal hernia with mesh Condition: Good Discharge Goals: Decrease discomfort and Improve disease control Activity: Per 'Additional Instructions' section Bathing: May shower/bathe in 3 days Sexual Activity: After two weeks Exercise/Sports: Rest today Non-emergency contact: Surgeon Call non-emergency contact if: you have any medication questions, your symptoms worsen, your pain is not controlled and your pain is worsening Follow-up/Referrals: Hannah Marshall CRNP [Primary Care Provider] - 02/05/19 10:30 am (A follow up appt. has been made for you with SUNNI Munguia for February 05 at 10:30am.) Luca Catalan MD [Physician] - 02/07/19 11:30 am (A follow up appt. has been made for you with Dr. Catalan for February 07 at 11:30am.) Diet: Regular Addtl Provider Instructions: Surgical discharge instructions: - No heavy lifting over 10 pounds for 4 weeks - no strenuous activity until cleared by surgeon - no submerging incision underwater for 2 weeks (no bathing, swimming, or hot tubs) - No driving while taking narcotic pain medication or until you are pain free - You may shower 3 days after your surgery, sponge bath and wash hair in meantime. After 3 days, remove outer dressing and shower. Leave steri strips on incision for 7 days and then remove. - Walking and light activity is encouraged to prevent blood clots from forming in your legs - You will be given prescription for Percocet for moderate to severe pain. Take as directed. This medication may cause drowsiness and constipation. - May take extra strength Tylenol as needed for mild pain. Do not exceed the maximum dose of Tylenol per day -- Percocet also contains Tylenol. - Take OTC stool softener twice daily to prevent constipation and straining for next 2 weeks especially while taking narcotic pain medication. - Follow-up in surgical office in 2 weeks, please call office at [phone] to make an appointment. Additional Instructions: * A prescription was sent to your pharmacy for Advair -- please follow up with your primary provider to discuss pulmonary function tests in setting of COPD. * Please take Zofran 4 mg every 6-8 hours for nausea/vomiting. * Please schedule a follow up appointment with your primary care provider in 1-2 weeks. Prescriptions: Continued Ocuvite Eye Health 50 mg-15 unit- 4.5 mg-2.5 mg Tablet,Chewable 1 tab PO QAM RF: 0 Discontinued docusate sodium 100 mg Capsule 100 mg PO QAM RF: 0 docusate sodium 100 mg Capsule 200 mg PO HS RF: 0 No Action Calcium 600 + Minerals 600 mg calcium- 200 unit tablet 1 tab PO DAILY RF: 0 clobetasol 0.05 % ointment 1 appln topical BID PRN (Reason: history of vaginitis) Qty: 1 RF: 0 Pradaxa 150 mg capsule 150 mg PO BID Qty: 60 RF: 0 fluticasone propionate [Flonase Allergy Relief] 50 mcg/actuation spray,suspension 1 spray intranasal .COMPLEX Qty: 16 RF: 0 Combivent Respimat 20-100 mcg/actuation mist 1 puff inhalation .COMPLEX Qty: 4 RF: 0 lidocaine HCl 2 % jelly 1 applic topical .COMPLEX Qty: 50 RF: 0 meclizine 25 mg tablet 25 mg PO TID PRN (Reason: Vertigo) Qty: 30 RF: 0 mupirocin 2 % ointment 1 appln TOP .COMPLEX Qty: 15 RF: 0 nitroglycerin [Nitrostat] 0.4 mg tablet, sublingual 0.4 mg sublingual .COMPLEX PRN (Reason: Chest Pain) Qty: 30 RF: 0 nystatin 100,000 unit/gram powder 1 applic topical .COMPLEX Qty: 15 RF: 0 penciclovir 1 % cream 1 appln topical Q2H PRN (Reason: herpes simplex 1 infection) Qty: 2 RF: 0 pantoprazole 40 mg tablet,delayed release (DR/EC) 40 mg PO .COMPLEX Qty: 30 RF: 0 ranitidine HCl 150 mg tablet 150 mg PO BID Qty: 60 RF: 0 docusate sodium 100 mg capsule 100 mg PO .COMPLEX RF: 0 cholecalciferol (vitamin D3) [Vitamin D3] 2,000 unit capsule 4,000 units PO DAILY RF: 0 Stand-Alone Forms: [facility]/Other Patient Handouts: Surgery Prevent DVT After Discharge Orders: Discharge Order (Routine); Ordered 02/02/19 Ordered By: Jeri Aguilar Admission Data Admit Date/Time: 01/28/19 13:48 Attending Provider: Brenton Spencer Admit Provider: Isai Mendiola Primary Care Provider: Hannah Marshall Other Providers: Jonathan Knight ; Luca Catalan ; Cesario Shah Service: Medical Other Interventions: Discharge Summary Assessment (RN) Last Done: 02/02/19 10:57 Pending Studies at Discharge: No DC Date/Time DO NOT enter until pt leaves facility: 02/02/19 11:45 Supervising Physician Co-Signing Physician Notes Attending Attestation: Pt seen/examined, chart reviewed, care plan d/w PA Jeri Aguilar. I agree w/ the solorzano components of her discharge documentation. s/p left direct inguinal hernia repair after presenting with abd pain & diarrhea. CT abd/pelvis showed mesenteric stranding which was likely due to pSBO at time of admission. Did well from surgical standpoint post-surgery - eating/drinking well, passing stool/flatus, etc. Patient reported several weeks of wheezing/cough pre-hospitalization. Has h/o "asthma." Placed patient on controller agent with advair and asked her to f/u with PCP to discuss outpatient PFTs, etc. Discharge exam - gen - NAD heart - RRR, s1, s2 lungs - minimal end-exp wheezes, no rales, no increased work of breathing abd - soft, minimal LLQ tenderness, BS+, ND ext - no edema skin - dressings intact abdominal wall Brenton Spencer MD
--- NOTE | 2019-02-06 04:19 | History & Physical Report ---
Date of Service February 06, 2019 Patient was initially seen and examined on January 27, 2019. This addendum note is for billing purposes only, since the original H&P note was not in PG format Please refer to the original note for the full H&P. History of Present Illness Primary Care Provider: SUNNI Felipe Allergies Allergy/AdvReac Type Severity Reaction Status Date / Time camphor Allergy Unknown SHORTNESS Unverified 01/27/19 16:56 OF BREATH eucalyptus Allergy Unknown SHORTNESS Unverified 01/27/19 16:56 OF BREATH menthol Allergy Unknown SHORTNESS Unverified 01/27/19 16:56 OF BREATH petrolatum,white Allergy Unknown Unverified 01/27/19 16:56 [From Vicks Vaporub] turpentine oil Allergy Unknown Unverified 01/27/19 16:56 [From Vicks Vaporub] aspirin AdvReac Mild ABD. PAIN Verified 01/27/19 16:56 AND VOMITING Home Medications Home Medications Medication Instructions Recorded Confirmed Type Combivent Respimat 1 puff INHALATION QID 01/27/19 02/04/19 History Ocuvite Eye Health 1 tab PO QAM 01/27/19 02/04/19 History Pradaxa 150 mg PO BID 01/27/19 02/04/19 History calcium carbonate-vitamin D3 1 tab PO QAM 01/27/19 02/04/19 History [Calcium 500 + D] cholecalciferol (vitamin D3) 2,000 unit PO BID 01/27/19 02/04/19 History [Vitamin D3] fluticasone propionate [Flonase 1 spray INTRANASAL Q2D 01/27/19 02/04/19 History Allergy Relief] lidocaine HCl 1 applic TOPICAL Q12 01/27/19 02/04/19 History meclizine 25 mg PO TID PRN 01/27/19 02/04/19 History nitroglycerin [Nitrostat] 0.4 mg SUBLINGUAL UD PRN 01/27/19 02/04/19 History nystatin 1 applic TOPICAL TID 01/27/19 02/04/19 History pantoprazole 40 mg PO DAILYBB 01/27/19 02/04/19 History ranitidine HCl 150 mg PO BID 01/27/19 02/04/19 History oxycodone-acetaminophen [Percocet] 1 tab PO Q4H PRN #15 tab 01/31/19 02/04/19 Rx fluticasone propion-salmeterol 1 puffs INH BID #60 ea 02/02/19 02/04/19 Rx [Advair Diskus] ondansetron HCl [Zofran] 4 mg PO Q6H PRN #14 tab 02/02/19 02/04/19 Rx acetaminophen 325 mg capsule See Rx Instructions PO Q4H PRN 02/04/19 02/04/19 History docusate sodium 100 mg capsule 100 mg PO .COMPLEX cap 02/04/19 History mupirocin 2 % topical ointment 1 appln TOP .COMPLEX 02/04/19 02/04/19 History Past Med/Surg History Medical History Left groin hernia Vitamin D deficiency (Acute) Tremor (Acute) Tinea corporis (Acute) Osteoporosis (Acute) Oral thrush (Acute) Legally blind (Acute) Hypertension (Acute) Hypermagnesemia (Acute) Gait instability (Acute) Encounter for long-term (current) use of medications (Acute) Chronic reflux esophagitis (Acute) Chronic obstructive pulmonary disease (Acute) Benign positional vertigo (Acute) BMI 34.0-34.9,adult (Acute) Dehydration (Resolved) Vertigo (Resolved) Vertigo (Resolved) Nausea (Resolved) Loss of consciousness (Resolved 03/17/14) Nasal bone fracture (Resolved 03/17/14) Nasal bone fracture (Resolved) Loss of consciousness (Resolved) Vertigo (Resolved) Right foot sprain (Acute) Left calcaneal fracture (Acute) LLQ abdominal pain (Acute) Pulmonary emboli Infected wound DVT (deep venous thrombosis) Dizziness (Acute) Complete heart block (Resolved) Diverticulosis (Chronic) Chest discomfort Cardiac tamponade after RV perforation during pacemaker placement, now resolved Complete heart block now has pacemaker Surgical History Pacemaker (Chronic) Family History Other Diabetes Hypertension Social History Preferred Language: [place] Communication Ability: Effective Beliefs That Will Affect Care: None Current Living Situation: Alone Feels Safe at Home: Yes Smoking Status: Never smoker Hx Alcohol Use: Yes Alcohol type: hard liquor Hx Substance Use: No Code Status & VTE Plan VTE Prophylaxis Plan VTE Prophylaxis will be ordered: No Reason for no VTE drug order: Treatment not indicated (already on anticoagulation therapy) Supervising Physician Co-Signing Physician Notes Attending addendum: I have physically seen this patient, have supervised the medical residents activities, and agree with the H&P unless as otherwise noted. Assessment and Plan: Enteritis/ileus versus early PSBO-- NPO. NSS at 100 mils per hour. Zofran 4 mg IV every 6 hours PRN. Famotidine 20 mg IV every 12 hours. Consult GI Remainder of orders and notations as noted. PG Care Time/CCT Total # of Minutes Spent Total Time Spent with Patient: Total time spent is greater than 50% in coordination of care (as documented) at patient's floor/unit and/or counseling patient:
== END 2019-02-02 11:45 | disposition home health service (06) | DRG 351 ==
LOC: 3W 15:35 → ED 15:35 → SUATTDRO 20:34 → 3W 21:08
DX: Z86.711 Personal history of pulmonary embolism; Z82.49 Family history of ischemic heart disease and other diseases of the circulatory system; M81.0 Age-related osteoporosis without current pathological fracture; I44.2 Atrioventricular block, complete; H81.10 Benign paroxysmal vertigo, unspecified ear; Z51.81 Encounter for therapeutic drug level monitoring; Z95.0 Presence of cardiac pacemaker; K40.30 Unilateral inguinal hernia, with obstruction, without gangrene, not specified as recurrent; J44.9 Chronic obstructive pulmonary disease, unspecified; Z88.6 Allergy status to analgesic agent; I10 Essential (primary) hypertension; K21.0 Gastro-esophageal reflux disease with esophagitis; H54.8 Legal blindness, as defined in USA; Z79.01 Long term (current) use of anticoagulants; Z86.718 Personal history of other venous thrombosis and embolism; Z79.899 Other long term (current) drug therapy; Z88.8 Allergy status to other drugs, medicaments and biological substances; Z91.048 Other nonmedicinal substance allergy status; E55.9 Vitamin D deficiency, unspecified

== ENCOUNTER 2024-07-11 11:12 | Inpatient (IN) ==
[2024-07-11 11:57] LABS: iSTAT Creatinine 0.8 mg/dl (0.6-1.3); iSTAT Hemoglobin 17.3 g/dl (12.0-16.0); iSTAT Ionized Calcium 1.01 mmol/l (1.12-1.32); iSTAT Potassium 5.2 mmol/L (3.3-5.0)
[2024-07-11 11:58] LABS: Basophils # (auto) 0.03 K/uL (0.00-0.20); Basophils % (auto) 0.2 %; Hematocrit (blood only) 51.2 % (37.0-47.0); Hemoglobin 16.1 g/dl (12.0-16.0); Immature Granulocytes # (auto) 0.14 K/uL (0.01-0.20); Immature Granulocytes % (auto) 0.7 %; Lymphocytes % (auto) 2.7 %; Mean Corpuscular Hemoglobin 28.3 pg (25.0-34.0); Mean Corpuscular Hgb Conc 31.4 g/dL (32.0-36.0); Mean Corpuscular Volume 90.1 fL (80.0-100.0); Mean Platelet Volume 10.5 fL (9.4-12.4); Monocytes # (auto) 1.32 K/uL (0.11-0.59); Monocytes % (auto) 7.1 %; Neutrophils # (auto) 16.72 K/uL (1.40-6.50); Neutrophils % (auto) 89.3 %; Platelet Count 242 K/uL (130-400); RDW Coefficient of Variation 15.3 % (11.5-14.5); RDW Standard Deviation 50.6 fL (36.4-46.3); Red Blood Count 5.68 M/uL (4.20-5.40); White Blood Count 18.71 K/ul (4.8-10.8)
[2024-07-11] MEDS: OPTIRAY 320 100ml IV ONE (12:06)
--- NOTE | 2024-07-11 12:07 | Emergency Department Note ---
Impression & Plan Acute hypotension, Rhabdomyolysis, Fall as cause of accidental injury at home as place of occurrence, Cardiac ischemia, Atrial premature depolarization with aberrant ventricular conduction ED Provider Note CHIEF COMPLAINT: Found in the bathtub x >24hrs HISTORY OF PRESENT ILLNESS: This 79-year-old female patient with past medical history of macular degeneration, psoriasis, esophageal stricture with chronic esophagitis, asthma, chronic anticoagulation, pacemaker, COPD, hypertension, osteoporosis presents to the emergency department after being found by family members laying in her bathtub for approximately 24 hours or more. Per patient's [id number] at the bedside, her son was not able to get in contact with her yesterday, they went to check on her this morning and found her bruised and lying in the bathtub. Patient is chronically anticoagulated on Pradaxa. REVIEW OF SYSTEMS: A review of systems was performed with positives and pertinent negatives listed in the history of present illness. 10 systems were reviewed and are otherwise negative. ALLERGIES: see below MEDICATIONS: see below PMH: see below SOCIAL HISTORY: see below DDx: UTI, dehydration, acute kidney injury, sepsis, bony fracture, intracranial hemorrhage, medication effect, electrolyte abnormality among others. PHYSICAL EXAM: Vital signs reviewed. General: Chronically ill-appearing 79-year-old female, in some discomfort. Incontinent HEENT: No scleral icterus, PERRLA, neck supple. Minimal if any head trauma appreciated. Cardiovascular: Regular rate and rhythm, no extra sounds. Pulmonary: Clear to auscultation bilaterally, normal work of breathing. Abdomen: Soft, nontender, nondistended, positive bowel sounds. Musculoskeletal: Atraumatic, no peripheral edema. Nontender to palpation over the cervical, thoracic and lumbar spine Neurologic: Patient awake, alert and answering some questions but unable to recall the events preceding her visit. Skin: Warm, dry, no rash EMERGENCY DEPARTMENT COURSE/MDM: This patient was evaluated and appeared to be d isheveled, bruised and answering some questions, but has no recollection of events preceding her visit. Much of the history is obtained per EMS and her [id number] at the bedside. Patient is noted to be hypotensive and IV fluids were initiated. The patient was changed into a gown and washed by nursing staff. IV fluids were initiated. Chest x-ray was performed and reveals no acute findings. CT imaging of the head, neck, chest, abdomen and pelvis were performed and significant for some left pleural thickening most consistent with atelectasis, some duodenal thickening which may or may not be related to trauma and a breast nodule. EKG reveals a right bundle branch block with concern for ischemia in the anterior lateral leads. Patient did have several runs of wide- complex tachycardia and IV amiodarone 150 mg was initiated with a subsequent drip. These findings and the EKG were discussed with Dr. Jaramillo of cardiology who feels these are likely atrial beats with aberrancy. Patient's laboratory work reveals a normal lactate but an elevated troponin of 2300. Total CK is 1400. It is unclear when the patient may have last taken her Pradaxa. No further anticoagulants were felt to be appropriate at this time. Patient is not expressing concerns over chest pain and 2-hour troponin is downtrending. CT imaging reveals evidence of some left pleural thickening that is felt to be consistent with atelectasis and some duodenal thickening with concern for trauma however patient's lactate is normal. She was medicated with 2 g of IV cefepime empirically. I did update the patient and her family at the bedside. Patient will be evaluated by the hospitalist service Dr. Lindsey. MONITORING: An order for cardiac monitoring was placed and the patient is noted to be in a NSR at 81 beats per minute. RADIOLOGY: Chest x-ray to my interpretation reveals pacemaker in place, nodularity noted in the right lower lung field with thickening at the left costophrenic angle, otherwise defer to radiology's over read Head CT per radiology reveals evidence of cerebral atrophy without evidence of acute process. CT of the cervical spine: IMPRESSION: Multilevel degenerative changes. No fracture. CT of the chest: IMPRESSION: 1. No traumatic change identified. 2. Pleural-based masslike infiltrate in the left lower lung with mild associated pleural thickening. Most likely diagnosis is round atelectasis. 2 mm subpleural right upper lobe pulmonary nodule. In the absence of a prior study to compare, follow-up CT chest recommended in [address] of the abdomen and pelvis: IMPRESSION: 1. There is duodenal thickening without evidence of perforation or adjacent abscess. These changes could reflect direct trauma. Stacie mitten peptic ulcer disease also considered. 2. Intact solid organs. 3. Coarse infiltrates in the left lung base presumably atelectasis. Correlate clinically for pneumonia. 4. Inferolateral right breast nodule. Correlate with physical exam, mammography and if there is a palpable lump, ultrasound. EKG: To my interpretation reveals a sinus tachycardia at 111 bpm. Frequent PACs. right bundle-branch block, left anterior fascicular block. ST and T wave abnormality noted in the anterior lateral leads. DISPOSITION: Admission I have personally spent greater than 60 minutes of critical care time in the direct management of this patient. This includes bedside care, interpretation of diagnostic studies, and testing, discussion with consultants, patient, and family members, and other required patient management activities. This 60 minutes is in excess of all separately billable procedures. Past Med/Surg History Problem List Atrial premature depolarization with aberrant ventricular conduction (Acute) Cardiac ischemia (Acute) Fall as cause of accidental injury at home as place of occurrence (Acute) Rhabdomyolysis (Acute) Acute hypotension (Acute) Pneumonia Wide-complex tachycardia Acute anterior wall [place] Elevated troponin NSVT (nonsustained ventricular tachycardia) Fall Failure to thrive in adult Rhabdomyolysis Psoriasis Hand pain, right Wrist pain, right Macular degeneration (Chronic) Esophageal stricture (Chronic) Asthma (Chronic) Chronic anticoagulation (Chronic) Elevated lipase Vitamin D deficiency (Chronic) Tremor (Chronic) Osteoporosis (Chronic) Legally blind (Chronic) Hypertension (Chronic) Gait instability (Acute) Chronic reflux esophagitis (Chronic) Chronic obstructive pulmonary disease (Chronic) Pacemaker (Chronic) Medical History Hypermagnesemia Esophageal diverticular disease Cardiac tamponade after RV perforation during pacemaker placement, now resolved Complete heart block now has pacemaker Left groin hernia Tinea corporis Benign positional vertigo Diverticulosis DVT (deep venous thrombosis) Infected wound Pulmonary emboli Left calcaneal fracture Loss of consciousness (03/17/14) Dehydration Surgical History Hx of inguinal hernia repair Family History Uncle No problems noted. Brother Lung cancer Myocardial infarction Father Myocardial infarction Cancer Stomach cancer Mother Myocardial infarction Other Diabetes Hypertension Denies family history of Ovarian cancer Prostate cancer Breast cancer Colorectal cancer Social History Smoking Status: Current every day smoker Tobacco Type: Cigarettes Second Hand Exposure: No; Do You Dip or Chew Tobacco: No; Hx Alcohol Use: Yes Alcohol type: hard liquor Alcohol Intake Frequency: Monthly or Less Hx Substance Use: No Preferred Language: Uzbek Communication Ability: Effective Visual Impairment: Blindness Hearing Ability: Normal Logging 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 current occupational status: retired How many Children do You have: 4 How many Children do You have Comment: Oldest son . Other Information That Helps Us Care for You: No Feels Safe at Home: Yes Safety Concerns: Feels Safe At This Time Childhood Exposure to Second-Hand Smoke: Yes Diet: regular caffeine: No during the past year weight has: remained stable Dental Care, Regularly: No Physical Activity Frequency: Daily Seatbelt Use: always Sunscreen Use: No Do you think of yourself as: straight/heterosexual Gender Identity: Female Assistive Devices: Walker and Other Allergies Allergies Allergy/AdvReac Type Severity Reaction Status Date / Time camphor Allergy Unknown SHORTNESS Verified 01/18/24 09:22 OF BREATH eucalyptus Allergy Unknown SHORTNESS Verified 01/18/24 09:22 OF BREATH menthol Allergy Unknown SHORTNESS Verified 01/18/24 09:22 OF BREATH petrolatum,white Allergy Unknown Verified 01/18/24 09:22 [From Vicks Vaporub] turpentine oil Allergy Unknown Verified 01/18/24 09:22 [From Vicks Vaporub] aspirin AdvReac Mild ABD. PAIN Verified 01/18/24 09:22 AND VOMITING black pepper Allergy Mild Nausea Uncoded 01/18/24 09:22 Home Meds Home Medications Medication Instructions Recorded Confirmed vit C 50 mg-E 15 unit-zinc cit 4.5 1 tab PO QAM 01/27/19 07/12/24 mg-lutein 2.5 mg-zeaxan chew tablet (Ocuvite [facility]) docusate sodium 100 mg capsule 100 mg PO UD 02/04/19 07/12/24 calcium 600 mg (as carbonate)-vit 1 tab PO DAILY 02/06/19 07/12/24 D3 5 mcg (200 unit)-minerals tablet (Calcium 600 + Minerals) carboxymethylcellulose sodium 0.5 1 drp ophthalmic (eye) QID 08/24/22 07/12/24 % eye drops in a dropperette (Refresh Plus) dabigatran etexilate 150 mg capsule 150 mg PO BID 07/12/24 07/12/24 famotidine 20 mg tablet 20 mg PO DAILY 07/12/24 07/12/24 fluticasone propionate 50 1 spray intranasal Q OTHER DAY 07/12/24 07/12/24 mcg/actuation nasal spray,suspension ipratropium 20 mcg-albuterol 100 1 puff inhalation QID 07/12/24 07/12/24 mcg/actuation mist for inhalation (Combivent Respimat) meclizine 25 mg tablet 25 mg PO TID PRN Vertigo 07/12/24 07/12/24 Previous Rx's Medication Instructions Recorded cholecalciferol (vitamin D3) 125 5,000 units PO DAILY #90 caps 09/13/19 mcg (5,000 unit) capsule clobetasol 0.05 % topical ointment 1 applic topical BID PRN psoriasis 01/16/23 #1 g Results & Data (ED) Vital Signs Vital Signs - 24 hr 07/11/24 11:23 07/11/24 11:25 07/11/24 11:28 Temperature 36.7 C Temperature Source Oral Pulse Rate 113 H 101 H Respiratory Rate 24 Respiratory Effort / Characteristics Spontaneous Short of Breath Blood Pressure 106/57 L Blood Pressure Mean 73 Blood Pressure Position Lying Pulse Oximetry 87 L 91 Oxygen Delivery Method Room Air Nasal Cannula Oxygen Flow Rate 2 Sepsis Recent Fever Within 48 Hours No Sepsis New/Unexplained Change in Mental Status N/A Sepsis Action Taken by Nursing Physician Notified Home Medications Current Medication List: was personally reviewed by me Laboratory Data Attestation: I reviewed the patient's lab results. 07/15/24 05:28 07/15/24 05:28 Lab Results 07/11/24 07/11/24 07/11/24 Range/Units 11:33 11:41 11:44 WBC 18.71 H (4.8-10.8) K/ul RBC 5.68 H (4.20-5.40) M/uL Hgb 16.1 H (12.0-16.0) g/dl POC Hgb 17.3 H (12.0-16.0) g/dl Hct 51.2 H (37.0-47.0) % POC Hct 51 H (37-47) % MCV 90.1 (80.0-100.0) fL MCH 28.3 (25.0-34.0) pg MCHC 31.4 L (32.0-36.0) g/dL RDW Std Deviation 50.6 H (36.4-46.3) fL RDW Coeff of Prosper 15.3 H (11.5-14.5) % Plt Count 242 (130-400) K/uL MPV 10.5 (9.4-12.4) fL Immature Gran % (Auto) 0.7 % Neut % (Auto) 89.3 % Lymph % (Auto) 2.7 % [place] % (Auto) 7.1 % Eos % (Auto) 0.0 % Baso % (Auto) 0.2 % Neut # (Auto) 16.72 H (1.40-6.50) K/uL Lymph # (Auto) 0.50 L (1.20-3.40) K/uL [place] # (Auto) 1.32 H (0.11-0.59) K/uL Eos # (Auto) 0.00 (0.00-0.50) K/uL Baso # (Auto) 0.03 (0.00-0.20) K/uL Immature Gran # (Auto) 0.14 (0.01-0.20) K/uL POC Sodium 139 (135-144) mmol/L Sodium 141 (136-145) mmol/L POC Potassium 5.2 H (3.3-5.0) mmol/L Potassium 4.5 (3.5-5.1) mmol/L POC Chloride 107 (101-112) mmol/L Chloride 103 (98-107) mmol/L Carbon Dioxide 23 (21-32) mmol/L POC Total CO2 23 L (24-31) mmol/L Anion Gap 15 H (3-11) POC Anion Gap 16.0 (16-25) mmol/L POC BUN 58 H (7-18) mg/dl BUN 43 H (6-23) mg/dl Creatinine 0.81 (0.6-1.2) mg/dl POC Creatinine 0.8 (0.6-1.3) mg/dl Est Cr Clr Drug Dosing 52.6 ml/min eGFR 74.26 BUN/Creatinine Ratio 53.1 H (10-20) Glucose 115 H (70-99(Fasting)) mg/dl POC Glucose (other) 111 H (70-99) mg/dl Lactate 1.8 (0.4-2.0) mmol/L Calcium 9.4 (8.6-10.3) mg/dl POC Ioniz Calcium Edward 1.01 L (1.12-1.32) mmol/l Magnesium 2.4 (1.7-2.4) mg/dl Total Bilirubin 1.0 (0.2-1.0) mg/dl AST 63 H (13-39) U/L ALT 31 (7-52) U/L Alkaline Phosphatase 73 (34-104) U/L Total Creatine Kinase 1431 H (26-192) U/L Troponin I High Sens 2338.5 H* (0-14) pg/ml Total Protein 7.7 (6.0-8.3) gm/dl Albumin 4.5 (3.4-5.0) gm/dl Globulin 3.2 (2.5-4.0) gm/dl Albumin/Globulin Ratio 1.4 (0.9-2) Procalcitonin 0.15 (0-0.5) ng/ml TSH 0.885 (0.300-4.500) uIu/ml Urine Color Urine Appearance (Clear) Urine pH (4.5-7.5) Ur Specific [place] (1.000-1.030) Urine Protein (Negative) Urine Glucose (UA) (Negative) Urine Ketones (Negative) Urine Blood (Negative) Urine Nitrite (Negative) Urine Bilirubin (Negative) Urine Urobilinogen (Negative) Ur Leukocyte Esterase (Negative) Urine WBC (Auto) (0-5) /hpf Urine RBC (Auto) (0-2) /hpf U Hyaline Cast (Auto) (0-2) /lpf U Epithel Cells (Auto) (0-2) /hpf Urine Bacteria (Auto) (None Seen) Granular Casts (None Prsent) /lpf 07/11/24 07/11/24 Range/Units 12:30 13:32 WBC (4.8-10.8) K/ul RBC (4.20-5.40) M/uL Hgb (12.0-16.0) g/dl POC Hgb (12.0-16.0) g/dl Hct (37.0-47.0) % POC Hct (37-47) % MCV (80.0-100.0) fL MCH (25.0-34.0) pg MCHC (32.0-36.0) g/dL RDW Std Deviation (36.4-46.3) fL RDW Coeff of Prosper (11.5-14.5) % Plt Count (130-400) K/uL MPV (9.4-12.4) fL Immature Gran % (Auto) % Neut % (Auto) % Lymph % (Auto) % [place] % (Auto) % Eos % (Auto) % Baso % (Auto) % Neut # (Auto) (1.40-6.50) K/uL Lymph # (Auto) (1.20-3.40) K/uL [place] # (Auto) (0.11-0.59) K/uL Eos # (Auto) (0.00-0.50) K/uL Baso # (Auto) (0.00-0.20) K/uL Immature Gran # (Auto) (0.01-0.20) K/uL POC Sodium (135-144) mmol/L Sodium (136-145) mmol/L POC Potassium (3.3-5.0) mmol/L Potassium (3.5-5.1) mmol/L POC Chloride (101-112) mmol/L Chloride (98-107) mmol/L Carbon Dioxide (21-32) mmol/L POC Total CO2 (24-31) mmol/L Anion Gap (3-11) POC Anion Gap (16-25) mmol/L POC BUN (7-18) mg/dl BUN (6-23) mg/dl Creatinine (0.6-1.2) mg/dl POC Creatinine (0.6-1.3) mg/dl Est Cr Clr Drug Dosing ml/min eGFR BUN/Creatinine Ratio (10-20) Glucose (70-99(Fasting)) mg/dl POC Glucose (other) (70-99) mg/dl Lactate (0.4-2.0) mmol/L Calcium (8.6-10.3) mg/dl POC Ioniz Calcium Edward (1.12-1.32) mmol/l Magnesium (1.7-2.4) mg/dl Total Bilirubin (0.2-1.0) mg/dl AST (13-39) U/L ALT (7-52) U/L Alkaline Phosphatase (34-104) U/L Total Creatine Kinase (26-192) U/L Troponin I High Sens 2066.5 H* (0-14) pg/ml Total Protein (6.0-8.3) gm/dl Albumin (3.4-5.0) gm/dl Globulin (2.5-4.0) gm/dl Albumin/Globulin Ratio (0.9-2) Procalcitonin (0-0.5) ng/ml TSH (0.300-4.500) uIu/ml Urine Color Yellow Urine Appearance Clear (Clear) Urine pH 5.5 (4.5-7.5) Ur Specific [place] 1.039 H (1.000-1.030) Urine Protein 2+ H (Negative) Urine Glucose (UA) Negative (Negative) Urine Ketones 2+ H (Negative) Urine Blood Negative (Negative) Urine Nitrite Negative (Negative) Urine Bilirubin Negative (Negative) Urine Urobilinogen Negative (Negative) Ur Leukocyte Esterase Negative (Negative) Urine WBC (Auto) 0-5 (0-5) /hpf Urine RBC (Auto) 0-2 (0-2) /hpf U Hyaline Cast (Auto) 11-20 H (0-2) /lpf U Epithel Cells (Auto) 0-2 (0-2) /hpf Urine Bacteria (Auto) None Seen (None Seen) Granular Casts Present A (None Prsent) /lpf Administered Medications Acetaminophen (Acetaminophen 325 Mg Tab) 650 mg PO Q6H PRN PRN Reason: Headache or Pain Stop: 08/11/24 09:43 Last Admin: 07/14/24 18:38 Dose: 650 mg Documented By: Admin: 07/14/24 02:30 Dose: 650 mg Documented By: Admin: 07/13/24 20:59 Dose: 650 mg Documented By: Admin: 07/12/24 21:17 Dose: 650 mg Documented By: Admin: 07/12/24 14:55 Dose: 650 mg Documented By: PJN Albuterol (Albut/Ipratrop 3mg/0.5mg Neb 3 Ml Vial) 3 ml NEB TIDR YOHANA; Protocol Stop: 08/11/24 12:59 Last Admin: 07/14/24 21:16 Dose: 3 ml Documented By: Admin: 07/14/24 12:55 Dose: 3 ml Documented By: [id number] Admin: 07/14/24 07:29 Dose: 3 ml Documented By: [id number] Admin: 07/13/24 19:32 Dose: 3 ml Documented By: Admin: 07/13/24 13:23 Dose: 3 ml Documented By: Admin: 07/13/24 07:18 Dose: 3 ml Documented By: Admin: 07/12/24 19:32 Dose: 3 ml Documented By: Admin: 07/12/24 12:45 Dose: 3 ml Documented By: JOEY Artificial Tears (Artificial Tears) 1 drops OP QID YOHANA Stop: 08/10/24 20:59 Last Admin: 07/14/24 20:21 Dose: 1 drops Documented By: Admin: 07/14/24 17:47 Dose: 1 drops Documented By: Admin: 07/14/24 14:31 Dose: 1 drops Documented By: Admin: 07/14/24 07:59 Dose: 1 drops Documented By: Admin: 07/13/24 20:48 Dose: 1 drops Documented By: Admin: 07/13/24 18:21 Dose: 1 drops Documented By: Admin: 07/13/24 14:22 Dose: 1 drops Documented By: Admin: 07/13/24 09:10 Dose: 1 drops Documented By: Admin: 07/12/24 21:06 Dose: 1 drops Documented By: Admin: 07/12/24 17:49 Dose: 1 drops Documented By: Admin: 07/12/24 14:19 Dose: 1 drops Documented By: Admin: 07/12/24 09:22 Dose: 1 drops Documented By: Admin: 07/11/24 20:20 Dose: 1 drops Documented By: FRIDA Dabigatran (Dabigatran Etexilate 75 Mg Cap) 150 mg PO BID YOHANA Stop: 08/10/24 20:59 Last Admin: 07/14/24 20:22 Dose: 150 mg Documented By: Admin: 07/14/24 07:58 Dose: 150 mg Documented By: Admin: 07/13/24 20:49 Dose: 150 mg Documented By: Admin: 07/13/24 09:09 Dose: 150 mg Documented By: Admin: 07/12/24 21:06 Dose: 150 mg Documented By: Admin: 07/12/24 09:14 Dose: 150 mg Documented By: Admin: 07/11/24 20:19 Dose: 150 mg Documented By: FRIDA Docusate Sodium (Docusate Sodium 100 Mg Cap) 100 mg PO DAILY YOHANA Stop: 08/11/24 08:59 Last Admin: 07/14/24 07:59 Dose: 100 mg Documented By: Admin: 07/13/24 09:09 Dose: 100 mg Documented By: Admin: 07/12/24 09:22 Dose: 100 mg Documented By: MATTIE Docusate Sodium (Docusate Sodium 100 Mg Cap) 200 mg PO HS YOHANA Stop: 08/10/24 20:59 Last Admin: 07/14/24 20:22 Dose: 200 mg Documented By: Admin: 07/13/24 20:48 Dose: 200 mg Documented By: Admin: 07/12/24 21:19 Dose: 200 mg Documented By: Admin: 07/11/24 20:19 Dose: 200 mg Documented By: FRIDA Famotidine (Famotidine 20 Mg Tab) 20 mg PO DAILY YOHANA Stop: 08/11/24 08:59 Last Admin: 07/14/24 07:59 Dose: 20 mg Documented By: Admin: 07/13/24 09:10 Dose: 20 mg Documented By: Admin: 07/12/24 09:14 Dose: 20 mg Documented By: MATTIE Fluticasone Propionate (Fluticasone Propionate Na Spr 16 Gm Btl) 1 sprays AMERICO Q2D@2100 YOHANA Stop: 08/10/24 20:59 Last Admin: 07/13/24 21:42 Dose: 1 sprays [place]ed [place] [facility] [place]: 07/11/24 20:20 Dose: Not Given Documented By: FRIDA Amiodarone HCl/Dextrose (Nexterone / D5w) 360 mg in 200 mls @ 16.667 mls/hr IV .Q12H YOHANA Stop: 08/10/24 13:29 Last Admin: 07/14/24 22:00 Dose: 0.5 mg/min, 16.7 mls/hr Documented By: [facility]C Co-signed By: KDL Infusion: 07/14/24 22:00 Dose: Infused Documented By: [facility]C Co-signed By: KDL Admin: 07/14/24 10:04 Dose: 0.5 mg/min, 16.7 mls/hr Documented By: CA Co-signed By: EP Infusion: 07/14/24 09:49 Dose: Infused Documented By: CA Co-signed By: EP Admin: 07/13/24 21:50 Dose: 0.5 mg/min, 16.7 mls/hr Documented By: [facility] Co-signed By: KEK Infusion: 07/13/24 21:32 Dose: Infused Documented By: [facility] Co-signed By: KEK Admin: 07/13/24 09:33 Dose: 0.5 mg/min, 16.7 mls/hr Documented By: CA Co-signed By: EP Infusion: 07/13/24 09:14 Dose: Infused Documented By: CA Co-signed By: EP Admin: 07/12/24 21:15 Dose: 0.5 mg/min, 16.7 mls/hr Documented By: CLC Co-signed By: KEK Infusion: 07/12/24 21:15 Dose: Infused Documented By: CLC Co-signed By: KEK Admin: 07/12/24 09:17 Dose: 0.5 mg/min, 16.7 mls/hr Documented By: PJN Co-signed By: CM Infusion: 07/12/24 09:17 Dose: Infused Documented By: MJN Co-signed By: CM Admin: 07/11/24 21:38 Dose: 0.5 mg/min, 16.7 mls/hr Documented By: TP Co-signed By: KDL Infusion: 07/11/24 21:38 Dose: Infused Documented By: TP Co-signed By: KDL Admin: 07/11/24 13:43 Dose: 0.5 mg/min, 16.7 mls/hr Documented By: BK Co-signed By: DANG Piperacillin Sod/Tazobactam Sod (Zosyn) 4.5 gm in 100 mls @ 25 mls/hr IV Q8H [facility]; Protocol Stop: 07/18/24 17:59 Last Infusion: 07/15/24 05:13 Dose: Infused [place]ed [place] [facility] [place]: 07/15/24 01:25 Dose: 25 mls/hr Documented By: Infusion: 07/14/24 21:50 Dose: Infused Documented By: Admin: 07/14/24 17:44 Dose: 25 mls/hr Documented By: Infusion: 07/14/24 15:01 Dose: Infused Documented By: Admin: 07/14/24 10:55 Dose: 25 mls/hr Documented By: Infusion: 07/14/24 06:32 Dose: Infused Documented By: [facility] [place]: 07/14/24 02:25 Dose: 25 mls/hr Documented By: [facility] [place]: 07/13/24 22:31 Dose: Infused Documented By: [facility] [place]: 07/13/24 18:22 Dose: 25 mls/hr Documented By: ELISE Metoprolol Tartrate (Metoprolol Tartrate 25 Mg Tab) 25 mg PO BID [facility] Stop: 08/11/24 12:34 Last Admin: 07/14/24 20:15 Dose: Not Given Documented By: [facility] [place]: 07/14/24 07:59 Dose: 25 mg Documented By: Admin: 07/13/24 20:50 Dose: 25 mg Documented By: [facility] [place]: 07/13/24 09:09 Dose: 25 mg Documented By: Admin: 07/12/24 21:12 Dose: Not Given Documented By: Admin: 07/12/24 14:18 Dose: Not Given Documented By: MATTIE Nystatin (Nystatin Powder 15gm Btl) 1 appln EXT PRN PRN PRN Reason: Affected Skin Folds Stop: 08/12/24 18:41 Last Admin: 07/14/24 20:21 Dose: 1 appln Documented By: [facility] [place]: 07/13/24 21:30 Dose: 1 appln Documented By: [facility] [place] Pantoprazole Sodium (Pantoprazole 40 Mg Tab) 40 mg PO QAM [facility] Stop: 08/11/24 08:59 Last Admin: 07/14/24 07:59 Dose: 40 mg Documented By: Admin: 07/13/24 09:10 Dose: 40 mg Documented By: Admin: 07/12/24 09:14 Dose: 40 mg Documented By: MATTIE Discontinued Medications Sodium Chloride (Nss) 500 mls @ 999 mls/hr IV .Q31M ONE Stop: 07/11/24 12:33 Last Infusion: 07/11/24 13:45 Dose: Infused Documented By: Admin: 07/11/24 12:08 Dose: 999 mls/hr Documented By: ZHAO Cefepime HCl (Maxipime 2000mg) 2,000 mg in 20 mls @ 5 mls/min IV NOW STA; Protocol Stop: 07/11/24 13:16 Last Admin: 07/11/24 13:19 Dose: 5 mls/min Documented By: RALPH Amiodarone HCl/Dextrose (Nexterone / D5w) 150 mg in 100 mls @ 600 mls/hr IV NOW STA Stop: 07/11/24 13:28 Last Infusion: 07/11/24 13:45 Dose: Infused Documented By: TALIA Co-signed By: KAMERON Admin: 07/11/24 13:26 Dose: 600 mls/hr Documented By: RALPH Co-signed By: TALIA Lactated Ringer's (Lr) 1,000 mls @ 999 mls/hr IV .Q1H1M ONE Stop: 07/11/24 14:38 Last Infusion: 07/11/24 15:24 Dose: Infused Documented By: Admin: 07/11/24 14:03 Dose: 999 mls/hr Documented By: RALPH Pantoprazole Sodium (Protonix) 40 mg in 10 mls @ 5 mls/min IV NOW ONE Stop: 07/11/24 13:45 Last Admin: 07/11/24 16:41 Dose: 5 mls/min Documented By: MATTIE Famotidine (Pepcid 20mg Iv Push) 20 mg in 5 mls @ 2.5 mls/min IV NOW STA Stop: 07/11/24 13:45 Last Admin: 07/11/24 16:41 Dose: 2.5 mls/min Documented By: MATTIE Lactated Ringer's (Lr) 1,000 mls @ 80 mls/hr IV .[id number] YOHANA Stop: 07/12/24 15:29 Last Infusion: 07/12/24 22:08 Dose: Infused Documented By: Admin: 07/12/24 09:03 Dose: 80 mls/hr Documented By: Infusion: 07/12/24 09:03 Dose: Infused Documented By: Admin: 07/12/24 01:26 Dose: 125 mls/hr Documented By: Infusion: 07/12/24 00:41 Dose: Infused Documented By: Admin: 07/11/24 16:41 Dose: 125 mls/hr Documented By: MATTIE Acetaminophen (Ofirmev) 1,000 mg in 100 mls @ 400 mls/hr IV NOW STA Stop: 07/11/24 23:38 Last Infusion: 07/12/24 00:06 Dose: Infused Documented By: Admin: 07/11/24 23:51 Dose: 400 mls/hr Documented By: TP Lactated Ringer's (Lr) 500 mls @ 999 mls/hr IV .Q31M ONE Stop: 07/11/24 23:54 Last Infusion: 07/12/24 00:22 Dose: Infused Documented By: Admin: 07/11/24 23:51 Dose: 999 mls/hr Documented By: TP Calcium Gluconate () 1,000 mg in 60 mls @ 240 mls/hr IV NOW ONE Stop: 07/11/24 23:59 Last Infusion: 07/12/24 00:05 Dose: Infused Documented By: Admin: 07/11/24 23:50 Dose: 240 mls/hr Documented By: TP Lactated Ringer's (Lr) 500 mls @ 999 mls/hr IV .Q31M ONE Stop: 07/12/24 02:21 Last Infusion: 07/12/24 02:22 Dose: Infused Documented By: Admin: 07/12/24 01:51 Dose: 999 mls/hr Documented By: TP Piperacillin Sod/Tazobactam Sod (Zosyn) 4.5 gm in 100 mls @ 200 mls/hr IV NOW ONE; Protocol Stop: 07/13/24 11:59 Last Infusion: 07/13/24 16:10 Dose: Infused Documented By: Admin: 07/13/24 14:22 Dose: 200 mls/hr Documented By: ELISE Ioversol (Optiray 320 100ml) 94 ml IV ONCE ONE Stop: 07/11/24 12:07 Last Admin: 07/11/24 12:06 Dose: 94 ml Documented By: SELVIN Lidocaine (Lidocaine 5% 1 Patch) 1 patch TD NOW STA Stop: 07/13/24 21:12 Last Admin: 07/13/24 21:41 Dose: 1 patch Documented By: ASIA Lidocaine (Lidocaine 5% 1 Patch) 1 patch TD NOW STA Stop: 07/14/24 20:03 Last Admin: 07/14/24 20:51 Dose: 1 patch Documented By: ASIA Miscellaneous (Remove Lidoderm Patch) 1 each N/A TODAY@1000 ONE Stop: 07/14/24 10:01 Last Admin: 07/14/24 10:55 Dose: 1 each Documented By: ELISE Perflutren Lipid Microsphere (Perflutren Lipid Microsphere (Definity)) 2 ml IV ONCE ONE Stop: 07/11/24 15:50 Last Admin: 07/11/24 15:49 Dose: 2 ml Documented By: ALESSANDRO Discharge Plan Visit Data Chief Complaint: Fall Stated Complaint: FALL ED Provider: Ramonita Christianson Discharge Problem: Acute hypotension, Rhabdomyolysis, Fall as cause of accidental injury at home as place of occurrence, Cardiac ischemia, Atrial premature depolarization with aberrant ventricular conduction Patient Disposition: Admitted As Inpatient Discharge Instructions Interventions: ED Discharge Assessment Last Done: 07/11/24 14:26 Discharge Problem: Rhabdomyolysis Qualifiers: Rhabdomyolysis type: traumatic Encounter type: initial encounter Qualified Code(s): T79.6XXA - Traumatic ischemia of muscle, initial encounter Fall as cause of accidental injury at home as place of occurrence Qualifiers: Encounter type: initial encounter Qualified Code(s): W19.XXXA - Unspecified fall, initial encounter; Y92.009 - Unspecified place in unspecified non- institutional (private) residence as the place of occurrence of the external cause
[2024-07-11] MEDS: SODIUM CHLORIDE 0.9% 500 ML IV ONE (12:08)
--- NOTE | 2024-07-11 12:14 | CT Scan Report ---
EXAM: CT Cervical Spine Without Intravenous Contrast INDICATION: Trauma. TECHNIQUE: Axial computed tomography images of the cervical spine without intravenous contrast. Sagittal and coronal reformatted images were created and reviewed. This CT exam was performed using one or more of the following dose reduction techniques: automated exposure control, adjustment of the mA and/or kV according to patient size, and/or use of iterative reconstruction technique. COMPARISON: No relevant prior studies available. FINDINGS: Limitations: None. Vertebrae: The bones are demineralized. There is straightening of the normal cervical curvature. There is grade 1 degenerative anterolisthesis of C4 on C5. There is moderate uncal spurring at C5-C6 and C6-C7. There is diffuse moderate spondylosis. Mild to moderate diffuse facet arthrosis noted. No fracture. Discs/spinal canal/neural foramina: There is diffuse moderate to space narrowing. There is moderate asymmetric right ventral canal stenosis at C5-C6 and C6-C7. There is multilevel foraminal encroachment most severe on the right at C5-C6. Soft tissues: No significant abnormality noted. Vasculature: Cervical carotid atherosclerosis noted. Lung apices: No significant abnormality noted. IMPRESSION: Multilevel degenerative changes. No fracture. ACT 112: Negative or not required by law. Electronically signed by Dunia Pace 07-11-2024 12:14 PM
--- NOTE | 2024-07-11 12:16 | CT Scan Report ---
EXAM: CT Head Without Intravenous Contrast INDICATION: Trauma. TECHNIQUE: Axial computed tomography images of the head/brain without intravenous contrast. Sagittal and/or coronal reformats are provided. Sagittal and coronal reformatted images were created and reviewed. This CT exam was performed using one or more of the following dose reduction techniques: automated exposure control, adjustment of the mA and/or kV according to patient size, and/or use of iterative reconstruction technique. COMPARISON: No relevant prior studies available. FINDINGS: Limitations: None. Brain and extra-axial spaces: There is age appropriate cortical atrophy and chronic ischemic periventricular white matter hypodensity. No acute infarct, hemorrhage or mass noted. Bones/joints: No acute changes. Soft tissues: No significant abnormality noted. Vasculature: No acute abnormality noted. Sinuses: Trace chronic right maxillary sinus mucosal thickening. Mastoid air cells: No mastoid effusion. Orbits: No significant abnormality noted. IMPRESSION: Cerebral atrophy. No acute changes. ACT 112: Negative or not required by law. Electronically signed by Dunia Pace 07-11-2024 12:15 PM
[2024-07-11 12:17] LABS: Albumin Globulin Ratio 1.4 (0.9-2); Albumin Level 4.5 gm/dl (3.4-5.0); BUN Creatinine Ratio 53.1 (10-20); Calcium 9.4 mg/dl (8.6-10.3); Creatinine Clr Calc Pharmacy 52.6 ml/min; Globulin 3.2 gm/dl (2.5-4.0); Magnesium 2.4 mg/dl (1.7-2.4); Potassium 4.5 mmol/L (3.5-5.1); Total Protein 7.7 gm/dl (6.0-8.3)
--- NOTE | 2024-07-11 12:25 | CT Scan Report ---
EXAM: CT Abdomen and Pelvis With Intravenous Contrast INDICATION: Trauma. TECHNIQUE: Axial computed tomography images of the abdomen and pelvis with intravenous contrast. Sagittal and coronal reformatted images were created and reviewed. This CT exam was performed using one or more of the following dose reduction techniques: automated exposure control, adjustment of the mA and/or kV according to patient size, and/or use of iterative reconstruction technique. COMPARISON: No relevant prior studies available. FINDINGS: Limitations: None. Lung bases: Dependent airspace consolidation noted in the left base and lingula. Pleural space: There is trace left basilar pleural thickening. Heart: Cardiomegaly noted. Cardiac pacing device noted. Metallic artifact limits assessment of lead integrity. Mediastinum: No abnormality noted. ABDOMEN: Liver: No abnormality noted. Gallbladder and bile ducts: Cholecystectomy. No ductal dilation or stone noted. Pancreas: Homogeneous enhancement. No mass, inflammation or ductal dilation. Spleen: No significant abnormality noted. Adrenals: No significant abnormality noted. Kidneys and ureters: Normal enhancement. No mass, hydronephrosis or visualized stone. Stomach and bowel: Scattered stool throughout the colon. Left colonic diverticulosis. No diverticulitis or obstruction. There is mild inflammation and thickening of the proximal duodenum best seen series 13 image 115. PELVIS: Appendix: No findings to suggest acute appendicitis. Bladder: No filling defects to suggest mass or large stone. No inflammation. Reproductive: Hysterectomy. ABDOMEN and PELVIS: Intraperitoneal space: No free air. No significant fluid collection. Bones/joints: Right femoral hardware well-seated. Moderate to severe degenerative changes noted throughout the spine most notably involving the facets. All fractures left sacrum and right inferior pubic ramus. No acute fracture noted. There is severe lumbar canal stenosis at L4-L5. Soft tissues: Intact ventral hernia repair. Probable postoperative seroma left and had a hernia repair. No recurrence. There is a homogeneous soft tissue density nodule in the inferior outer right breast measuring 2.0 x 1.3 x 1.5 cm. Vasculature: There is atherosclerosis of the aorta. There is minimal dilatation of the infrarenal segment to 2.7 cm. No dissection or aneurysm. Lymph nodes: No pathologically enlarged lymph nodes. IMPRESSION: 1. There is duodenal thickening without evidence of perforation or adjacent abscess. These changes could reflect direct trauma. Stacie mitten peptic ulcer disease also considered. 2. Intact solid organs. 3. Coarse infiltrates in the left lung base presumably atelectasis. Correlate clinically for pneumonia. 4. Inferolateral right breast nodule. Correlate with physical exam, mammography and if there is a palpable lump, ultrasound. ACT 112: Negative or not required by law. Electronically signed by Dunia Pace 07-11-2024 12:25 PM
[2024-07-11 12:27] LABS: Troponin I High Sensitivity 2338.5 pg/ml (0-14)
--- NOTE | 2024-07-11 12:30 | CT Scan Report ---
EXAM: CT Chest With Intravenous Contrast INDICATION: Trauma. TECHNIQUE: Axial computed tomography images of the chest with intravenous contrast. Sagittal and coronal reformatted images were created and reviewed. This CT exam was performed using one or more of the following dose reduction techniques: automated exposure control, adjustment of the mA and/or kV according to patient size, and/or use of iterative reconstruction technique. CONTRAST: 94ml of Optiray 320 was administered intravenously. COMPARISON: No relevant prior studies available. FINDINGS: Limitations: None. Lungs and pleural spaces: Coarse opacities identified in the left lung base and lingula. Left posterior lower lobe pleural-based infiltrate measures 1.8 x 3.7 x 1.5 cm. There is ar 2 mm subpleural right upper lobe pulmonary nodule series 10 image 10. There is mild left posterior pleural thickening. No effusion or pneumothorax. Heart: Cardiomegaly noted. Cardiac pacing device noted. Metallic artifact limits assessment of lead integrity. Thyroid: No abnormality noted. Bones/joints: Degenerative spine there is mild atherosclerosis of the aortic arch. No aneurysm or dissection. Soft tissues: No significant abnormality noted. Vasculature: No aneurysm or dissection.. Lymph nodes: No enlarged lymph nodes. IMPRESSION: 1. No traumatic change identified. 2. Pleural-based masslike infiltrate in the left lower lung with mild associated pleural thickening. Most likely diagnosis is round atelectasis. 2 mm subpleural right upper lobe pulmonary nodule. In the absence of a prior study to compare, follow-up CT chest recommended in 3 to 6 months. ACT 112: Negative or not required by law. Electronically signed by Dunia Pace 07-11-2024 12:29 PM
[2024-07-11 12:32] LABS: Thyroid Stimulating Hormone 0.885 uIu/ml (0.300-4.500)
[2024-07-11 13:03] LABS: Appearance Urine Clear (Clear); Bacteria Urine Automated None Seen (None Seen); Bilirubin Urine Negative (Negative); Blood Urine Negative (Negative); Color Urine Yellow; Epithelial Cell Urine Auto 0-2 /hpf (0-2); Glucose Urine UA Negative (Negative); Ketones Urine 2+ (Negative); Leukocyte Esterase Urine Negative (Negative); Nitrite Urine Negative (Negative); Protein Urine 2+ (Negative); RBC Urine Automated 0-2 /hpf (0-2); Specific Gravity Urine 1.039 (1.000-1.030); Urobilinogen Urine Negative (Negative); WBC Urine Automated 0-5 /hpf (0-5); pH Urine 5.5 (4.5-7.5)
[2024-07-11 13:17] LABS: Granular Casts Urine Present /lpf (None Prsent)
[2024-07-11] MEDS ORDERED: 0.2 MICRON FILTER SET 1 EACH IV ONE (13:19)
[2024-07-11] MEDS: CEFEPIME 2000MG 2,000 MG/20 ML SYR IV STA (13:19)
--- NOTE | 2024-07-11 13:24 | XRay Report ---
EXAM: Radiograph of the Chest 1 View INDICATION: Weakness. TECHNIQUE: Frontal view of the chest. COMPARISON: [employer] radiograph from CT the same day FINDINGS: Lungs and pleural spaces: The lungs are hyperinflated with chronic interstitial and left basilar pleural and parenchymal scarring. Left basilar opacity seen on CT is not defined likely summation shadow with pleural thickening. No pneumothorax. Heart: Shape and configuration within normal limits allowing for technique. Mediastinum: Normal contour. Bones/joints: No fracture, erosion or dislocation. Soft tissues: No abnormality noted. No radiopaque foreign body noted. Tubes, lines and devices: Prominent cardiac shadow. Intact right atrial and ventricular pacing leads. Upper abdomen: No abnormality noted. IMPRESSION: Left basilar pleural and parenchymal thickening. See separately dictated CT chest for additional information. ACT 112: Negative or not required by law. Electronically signed by Dunia Pace 07-11-2024 13:23 PM
[2024-07-11] MEDS: AMIODARONE / D5W 150 MG/100 ML BAG IV STA (13:26)
--- NOTE | 2024-07-11 13:41 | History & Physical Report ---
Date of Service July 11, 2024 Assessment & Plan (1) Rhabdomyolysis: Plan: LR 1L bolus now then @ 125ml/hr Repeat CK with AM labs (2) NSVT (nonsustained ventricular tachycardia): Plan: Excessive runs of NSVTs vs aberrancy. Started on amiodarone in the ER on discussion with cardiology, will continue TTE Consult cardiology (3) Elevated troponin: Plan: Suspect demand-ischemia related to fall No chest pain or shortness of breath to suggest ACS Initial EKG with some ST changes with reciprocal changes but repeat appears similar to prior and troponin downtrending (4) Chronic obstructive pulmonary disease: Plan: No acute exacerbation suspected on exam Combivent PRN (5) Failure to thrive in adult: Plan: PT/OT evals once cleared from a cardiac perspective (6) Fall: Plan: Suspected unwitnessed fall Will need PT/OT evals, daughter concerned about her ongoing ability to live alone Plan VTE Prophylaxis - continue dabigatran Diet - regular Disposition - admit to PCU Admission and Anticipated Discharge Date Admission Date: July 11, 2024 History of Present Illness Chief Complaint: Found in bathtub Primary Care Provider: SUNNI Felipe Nadiya Villegas is a 79 year old female who presents to the ER after being found in the bathtub around 10am by her daughter. She reports getting up Monday morning and crawling into the bathtub around 4:30am and unable to get back out. Her family suspect she fell into the bathtub with the way she was found. She has not had anything to eat or drink. She screamed for help but lives alone and was only found this morning. She denies any current pain or injuries at this time. She was noted to have an elevated troponin in the ER but denies any chest pain or shortness of breath. Allergies Allergy/AdvReac Type Severity Reaction Status Date / Time camphor Allergy Unknown SHORTNESS Verified 01/18/24 09:22 OF BREATH eucalyptus Allergy Unknown SHORTNESS Verified 01/18/24 09:22 OF BREATH menthol Allergy Unknown SHORTNESS Verified 01/18/24 09:22 OF BREATH petrolatum,white Allergy Unknown Verified 01/18/24 09:22 [From [facility]] turpentine oil Allergy Unknown Verified 01/18/24 09:22 [From [facility]] aspirin AdvReac Mild ABD. PAIN Verified 01/18/24 09:22 AND VOMITING black pepper Allergy Mild Nausea Uncoded 01/18/24 09:22 Home Medications Medication Instructions Recorded Confirmed Type vit C 50 mg-E 15 unit-zinc cit 4.5 1 tab PO QAM 01/27/19 01/18/24 History mg-lutein 2.5 mg-zeaxan chew tablet ([facility]) docusate sodium 100 mg capsule 100 mg PO .COMPLEX 02/04/19 01/18/24 History calcium 600 mg (as carbonate)-vit 1 tab PO DAILY 02/06/19 01/18/24 History D3 5 mcg (200 unit)-minerals tablet (Calcium 600 + Minerals) mupirocin 2 % topical ointment 1 appln topical .COMPLEX #15 grams 02/07/19 01/18/24 Rx fluticasone propionate 50 1 spray intranasal .COMPLEX #16 06/27/19 01/18/24 Rx mcg/actuation nasal grams spray,suspension (Flonase Allergy Relief) cholecalciferol (vitamin D3) 125 5,000 units PO DAILY #90 caps 09/13/19 01/18/24 Rx mcg (5,000 unit) capsule carboxymethylcellulose sodium 0.5 1 drp ophthalmic (eye) QID 08/24/22 01/18/24 History % eye drops in a dropperette (Refresh Plus) clobetasol 0.05 % topical ointment 1 applic topical BID PRN psoriasis 01/16/23 01/18/24 Rx #1 g nystatin 100,000 unit/gram topical 1 applic topical .COMPLEX #60 grams 03/02/23 01/18/24 Rx powder penciclovir 1 % topical cream 1 applic topical Q2H PRN herpes 03/02/23 01/18/24 Rx simplex 1 infection #2 grams famotidine 20 mg tablet 20 mg PO DAILY #30 tabs 09/25/23 01/18/24 Rx dabigatran etexilate 150 mg See Rx Instructions .Route 10/19/23 01/18/24 Rx capsule (Pradaxa) .COMPLEX #60 caps pantoprazole 40 mg tablet,delayed 40 mg PO QAM #30 tabs 10/19/23 01/18/24 Rx release meclizine 25 mg tablet See Rx Instructions .Route 02/07/24 Rx .COMPLEX #30 tabs ipratropium 20 mcg-albuterol 100 See Rx Instructions .Route 02/22/24 Rx mcg/actuation mist for inhalation .COMPLEX #4 grams (Combivent Respimat) Past Med/Surg History Problem List Elevated troponin NSVT (nonsustained ventricular tachycardia) Fall Failure to thrive in adult Rhabdomyolysis Psoriasis Hand pain, right Wrist pain, right Macular degeneration (Chronic) Esophageal stricture (Chronic) Asthma (Chronic) Chronic anticoagulation (Chronic) Elevated lipase Vitamin D deficiency (Chronic) Tremor (Chronic) Osteoporosis (Chronic) Legally blind (Chronic) Hypertension (Chronic) Gait instability (Acute) Chronic reflux esophagitis (Chronic) Chronic obstructive pulmonary disease (Chronic) Pacemaker (Chronic) Medical History Hypermagnesemia Esophageal diverticular disease Cardiac tamponade Complete heart block Left groin hernia Tinea corporis Benign positional vertigo Diverticulosis DVT (deep venous thrombosis) Infected wound Pulmonary emboli Left calcaneal fracture Loss of consciousness (03/17/14) Dehydration Surgical History Hx of inguinal hernia repair Family History Uncle No problems noted. Brother Lung cancer Myocardial infarction Father Myocardial infarction Cancer Stomach cancer Mother Myocardial infarction Other Diabetes Hypertension Denies family history of Ovarian cancer Prostate cancer Breast cancer Colorectal cancer Social History (Updated 01/18/24 @ 09:41 by Marianna Goncalves LPN) Smoking Status: Current every day smoker Tobacco Type: Cigarettes Second Hand Exposure: No; Do You Dip or Chew Tobacco: No; Hx Alcohol Use: Yes Alcohol type: hard liquor Alcohol Intake Frequency: Monthly or Less Hx Substance Use: No Preferred Language: Irish Communication Ability: Effective Visual Impairment: Blindness Hearing Ability: Normal Game Warden Required: No Beliefs That Will Affect Care: None marital status: / Current Living Situation: Alone Current Living Situation Comment: Neighbors help her when she needs it. current occupational status: retired How many Children do You have: 4 How many Children do You have Comment: Oldest son . Other Information That Helps Us Care for You: No Feels Safe at Home: Yes Safety Concerns: Feels Safe At This Time Childhood Exposure to Second-Hand Smoke: Yes Diet: regular caffeine: No during the past year weight has: remained stable Dental Care, Regularly: No Physical Activity Frequency: Daily Seatbelt Use: always Sunscreen Use: No Do you think of yourself as: straight/heterosexual Gender Identity: Female Assistive Devices: Cane, Denture - Upper, Denture - Lower, Glasses and Walker Review of Systems Review of Systems: All systems reviewed & are unremarkable except as noted in HPI & below Physical Exam Constitutional: WD/WN, vitals as above Eyes: PERRL, conjunctivae normal, anicteric sclerae ENMT: Mouth: + dry oral mucous membranes Respiratory: normal respiratory effort; no respiratory distress Auscultation: + rhonchi; breath sounds present, no diminished lung sounds, no crackles and no wheezes Cardiovascular: RRR, no murmur, no edema Gastrointestinal (Abdomen): normal bowel sounds, soft, nontender, no hepatosplenomegaly Musculoskeletal: no cyanosis or clubbing, extremities motor strength 5/5 Skin: Ecchymosis at various stages of healing on back especially posterior right shoulder without hematoma present Neurologic: moves all extremities and awake; no focal motor deficits and not confused Psychiatric: A+Ox3, euthymic affect Genitourinary: no CVA tenderness Results & Data Results & Data Vital Signs (Past 12 Hours) Vital Signs Temp Pulse Resp BP Pulse Ox O2 Del Method O2 Flow Rate 07/11/24 12:51 80/55 L 07/11/24 12:42 87/66 L 07/11/24 12:42 87 22 92 07/11/24 12:40 36.5 C 07/11/24 12:31 85/67 L 07/11/24 12:24 107 H 24 94 07/11/24 12:07 114/51 L 07/11/24 12:03 131 H 21 07/11/24 11:42 114 H 29 H 07/11/24 11:33 101/65 07/11/24 11:28 91 Nasal Cannula 2 07/11/24 11:27 104 H 21 90 07/11/24 11:25 101 H 07/11/24 11:23 36.7 C 113 H 24 106/57 L 87 L Room Air 07/11/24 11:16 106/57 L Laboratory Results Abnormal lab results 07/11/24 07/11/24 07/11/24 Range/Units 11:33 11:44 12:30 WBC 18.71 H (4.8-10.8) K/ul RBC 5.68 H (4.20-5.40) M/uL Hgb 16.1 H (12.0-16.0) g/dl POC Hgb 17.3 H (12.0-16.0) g/dl Hct 51.2 H (37.0-47.0) % POC Hct 51 H (37-47) % MCHC 31.4 L (32.0-36.0) g/dL RDW Std Deviation 50.6 H (36.4-46.3) fL RDW Coeff of Prosper 15.3 H (11.5-14.5) % Neut # (Auto) 16.72 H (1.40-6.50) K/uL Lymph # (Auto) 0.50 L (1.20-3.40) K/uL Hubbard # (Auto) 1.32 H (0.11-0.59) K/uL POC Potassium 5.2 H (3.3-5.0) mmol/L POC Total CO2 23 L (24-31) mmol/L Anion Gap 15 H (3-11) POC BUN 58 H (7-18) mg/dl BUN 43 H (6-23) mg/dl BUN/Creatinine Ratio 53.1 H (10-20) Glucose 115 H (70-99(Fasting)) mg/dl POC Glucose (other) 111 H (70-99) mg/dl POC Ioniz Calcium Edward 1.01 L (1.12-1.32) mmol/l AST 63 H (13-39) U/L Total Creatine Kinase 1431 H (26-192) U/L Troponin I High Sens 2338.5 H* (0-14) pg/ml Ur Specific Achille 1.039 H (1.000-1.030) Urine Protein 2+ H (Negative) Urine Ketones 2+ H (Negative) U Hyaline Cast (Auto) 11-20 H (0-2) /lpf Granular Casts Present A (None Prsent) /lpf Diagnostic Findings CT Head Without Intravenous Contrast INDICATION: Trauma. TECHNIQUE: Axial computed tomography images of the head/brain without intravenous contrast. Sagittal and/or coronal reformats are provided. Sagittal and coronal reformatted images were created and reviewed. This CT exam was performed using one or more of the following dose reduction techniques: automated exposure control, adjustment of the mA and/or kV according to patient size, and/or use of iterative reconstruction technique. COMPARISON: No relevant prior studies available. FINDINGS: Limitations: None. Brain and extra-axial spaces: There is age appropriate cortical atrophy and chronic ischemic periventricular white matter hypodensity. No acute infarct, hemorrhage or mass noted. Bones/joints: No acute changes. Soft tissues: No significant abnormality noted. Vasculature: No acute abnormality noted. Sinuses: Trace chronic right maxillary sinus mucosal thickening. Mastoid air cells: No mastoid effusion. Orbits: No significant abnormality noted. IMPRESSION: Cerebral atrophy. No acute changes. CT Cervical Spine Without Intravenous Contrast INDICATION: Trauma. TECHNIQUE: Axial computed tomography images of the cervical spine without intravenous contrast. Sagittal and coronal reformatted images were created and reviewed. This CT exam was performed using one or more of the following dose reduction techniques: automated exposure control, adjustment of the mA and/or kV according to patient size, and/or use of iterative reconstruction technique. COMPARISON: No relevant prior studies available. FINDINGS: Limitations: None. Vertebrae: The bones are demineralized. There is straightening of the normal cervical curvature. There is grade 1 degenerative anterolisthesis of C4 on C5. There is moderate uncal spurring at C5-C6 and C6-C7. There is diffuse moderate spondylosis. Mild to moderate diffuse facet arthrosis noted. No fracture. Discs/spinal canal/neural foramina: There is diffuse moderate to space narrowing. There is moderate asymmetric right ventral canal stenosis at C5-C6 and C6-C7. There is multilevel foraminal encroachment most severe on the right at C5-C6. Soft tissues: No significant abnormality noted. Vasculature: Cervical carotid atherosclerosis noted. Lung apices: No significant abnormality noted. IMPRESSION: Multilevel degenerative changes. No fracture. CT Chest With Intravenous Contrast INDICATION: Trauma. TECHNIQUE: Axial computed tomography images of the chest with intravenous contrast. Sagittal and coronal reformatted images were created and reviewed. This CT exam was performed using one or more of the following dose reduction techniques: automated exposure control, adjustment of the mA and/or kV according to patient size, and/or use of iterative reconstruction technique. CONTRAST: 94ml of Optiray 320 was administered intravenously. COMPARISON: No relevant prior studies available. FINDINGS: Limitations: None. Lungs and pleural spaces: Coarse opacities identified in the left lung base and lingula. Left posterior lower lobe pleural-based infiltrate measures 1.8 x 3.7 x 1.5 cm. There is ar 2 mm subpleural right upper lobe pulmonary nodule ser ies 10 image 10. There is mild left posterior pleural thickening. No effusion or pneumothorax. Heart: Cardiomegaly noted. Cardiac pacing device noted. Metallic artifact limits assessment of lead integrity. Thyroid: No abnormality noted. Bones/joints: Degenerative spine there is mild atherosclerosis of the aortic arch. No aneurysm or dissection. Soft tissues: No significant abnormality noted. Vasculature: No aneurysm or dissection.. Lymph nodes: No enlarged lymph nodes. IMPRESSION: 1. No traumatic change identified. 2. Pleural-based masslike infiltrate in the left lower lung with mild associated pleural thickening. Most likely diagnosis is round atelectasis. 2 mm subpleural right upper lobe pulmonary nodule. In the absence of a prior study to compare, follow-up CT chest recommended in [address] Abdomen and Pelvis With Intravenous Contrast INDICATION: Trauma. TECHNIQUE: Axial computed tomography images of the abdomen and pelvis with intravenous contrast. Sagittal and coronal reformatted images were created and reviewed. This CT exam was performed using one or more of the following dose reduction techniques: automated exposure control, adjustment of the mA and/or kV according to patient size, and/or use of iterative reconstruction technique. COMPARISON: No relevant prior studies available. FINDINGS: Limitations: None. Lung bases: Dependent airspace consolidation noted in the left base and lingula. Pleural space: There is trace left basilar pleural thickening. Heart: Cardiomegaly noted. Cardiac pacing device noted. Metallic artifact limits assessment of lead integrity. Mediastinum: No abnormality noted. ABDOMEN: Liver: No abnormality noted. Gallbladder and bile ducts: Cholecystectomy. No ductal dilation or stone noted. Pancreas: Homogeneous enhancement. No mass, inflammation or ductal dilation. Spleen: No significant abnormality noted. Adrenals: No significant abnormality noted. Kidneys and ureters: Normal enhancement. No mass, hydronephrosis or visualized stone. Stomach and bowel: Scattered stool throughout the colon. Left colonic diverticulosis. No diverticulitis or obstruction. There is mild inflammation and thickening of the proximal duodenum best seen series 13 image 115. PELVIS: Appendix: No findings to suggest acute appendicitis. Bladder: No filling defects to suggest mass or large stone. No inflammation. Reproductive: Hysterectomy. ABDOMEN and PELVIS: Intraperitoneal space: No free air. No significant fluid collection. Bones/joints: Right femoral hardware well-seated. Moderate to severe degenerative changes noted throughout the spine most notably involving the facets. All fractures left sacrum and right inferior pubic ramus. No acute fracture noted. There is severe lumbar canal stenosis at L4-L5. Soft tissues: Intact ventral hernia repair. Probable postoperative seroma left and had a hernia repair. No recurrence. There is a homogeneous soft tissue density nodule in the inferior outer right breast measuring 2.0 x 1.3 x 1.5 cm. Vasculature: There is atherosclerosis of the aorta. There is minimal dilatation of the infrarenal segment to 2.7 cm. No dissection or aneurysm. Lymph nodes: No pathologically enlarged lymph nodes. IMPRESSION: 1. There is duodenal thickening without evidence of perforation or adjacent abscess. These changes could reflect direct trauma. Stacie mitten peptic ulcer disease also considered. 2. Intact solid organs. 3. Coarse infiltrates in the left lung base presumably atelectasis. Correlate clinically for pneumonia. 4. Inferolateral right breast nodule. Correlate with physical exam, mammography and if there is a palpable lump, ultrasound. Medications Administered ER Medications Given: Normal saline 500ml bolus Cefepime 2000mg IV Amiodarone 150mg IV bolus and drip ECG Rate (beats per minute): 89 Rhythm: other (atrial sensed ventricular paced rhythm) Comparison ECG Date: from (January 30, 2019) Change: no significant change Code Status & VTE Plan Code Status DNR/DNI VTE Prophylaxis Plan VTE Prophylaxis will be ordered: Yes PG Care Time/CCT Total # of Minutes Spent Total Time Spent with Patient: Total time spent is greater than 50% in coordination of care (as documented) at patient's floor/unit and/or counseling patient: Coding Level of Care Code 02278 INT INP/OBS CARE 3/75MIN Diagnoses Rhabdomyolysis M62.82 NSVT (nonsustained ventricular tachycardia) I47.29 Elevated troponin R79.89 Chronic obstructive pulmonary disease, unspecified COPD type J44.9 COPD type: unspecified COPD Failure to thrive in adult R62.7 Fall W19.XXXA (4) Chronic obstructive pulmonary disease COPD type: unspecified COPD Qualified Code(s): J44.9 - Chronic obstructive pulmonary disease, unspecified
[2024-07-11] MEDS: AMIODARONE / D5W 360 MG/200 ML BAG IV SCH (13:43)
[2024-07-11] MEDS: LACTATED RINGER'S 1,000 ML IV ONE (14:03)
[2024-07-11] MEDS: PERFLUTREN LIPID MICROSPHERE (DEFINITY) IV ONE (15:49)
[2024-07-11] MEDS: FAMOTIDINE 20MG IV PUSH 20 MG/5 ML SYR IV STA (16:41)
[2024-07-11] MEDS: LACTATED RINGER'S 1,000 ML IV SCH (16:41)
[2024-07-11] MEDS: PANTOprazole 40 MG/10 ML SYR IV ONE (16:41)
[2024-07-11] MEDS ORDERED: IPRATROPIUM BROMIDE/ALBUTEROL respimat INH INH PRN (17:03)
[2024-07-11] MEDS ORDERED: ALBUTEROL HFA 8 GM INHALER INH PRN (17:31)
[2024-07-11] MEDS ORDERED: IPRATROPIUM BROMIDE HFA INHALER INH PRN (17:32)
[2024-07-11] MEDS: DOCUSATE SODIUM 100 MG CAP PO SCH (20:19)
[2024-07-11] MEDS: DABIGATRAN ETEXILATE 75 MG CAP PO SCH (20:19)
[2024-07-11] MEDS: FLUTICASONE PROPIONATE NA SPR 16 GM BTL NAE SCH (20:20)
[2024-07-11] MEDS: ARTIFICIAL TEARS OP SCH (20:20)
[2024-07-11] MEDS: CALCIUM GLUCONATE 1,000 MG/60 ML BAG IV ONE (23:50)
[2024-07-11] MEDS: LACTATED RINGER'S 500 ML IV ONE (23:51)
[2024-07-11] MEDS: ACETAMINOPHEN 1,000 MG/100 ML VIAL IV STA (23:51)
[2024-07-12] MEDS: LACTATED RINGER'S 500 ML IV ONE (01:51)
--- NOTE | 2024-07-12 03:41 | Communication Note ---
Date of Service: July 12, 2024 Notified by nursing of concern for HRs 140/150s. Pt was placed on amiodarone gtt in ED for NSVT. EKG obtained and appears to be SVT. Elevated pt at bedside at ~2330. Daughter was at bedside as well. She was alert, orientated and asymptomatic. Denied chest pain, dyspnea, palpations. No LE, dry mucus membranes-> appeared hypovolemic. BP 102/61. Gave 500mL bolus LR and calcium gluconate for low calcium. Notes pain, so also gave Tylenol. After bolus minimal improvement in HRs, down to 130s/140s and hypotension with BP 89/54. Again evaluated pt at bedside. Again alert, oriented and asymptomatic. Gave an additional 500mL bolus LR. Improvement of HRs to 80s/90s and now with a paced rhythm. BP improved to 103/56.
[2024-07-12 06:44] LABS: Albumin Globulin Ratio 1.4 (0.9-2); BUN Creatinine Ratio 44.3 (10-20); Bilirubin,Total 0.6 mg/dl (0.2-1.0); Calcium 7.7 mg/dl (8.6-10.3); Creatinine Clr Calc Pharmacy 60.1 ml/min; Globulin 2.2 gm/dl (2.5-4.0); Total Protein 5.2 gm/dl (6.0-8.3)
[2024-07-12 07:55] LABS: Basophils # (auto) 0.01 K/uL (0.00-0.20); Basophils % (auto) 0.1 %; Hematocrit (blood only) 36.8 % (37.0-47.0); Hemoglobin 11.7 g/dl (12.0-16.0); Immature Granulocytes # (auto) 0.06 K/uL (0.01-0.20); Immature Granulocytes % (auto) 0.5 %; Lymphocytes % (auto) 7.7 %; Mean Corpuscular Hemoglobin 28.7 pg (25.0-34.0); Mean Corpuscular Hgb Conc 31.8 g/dL (32.0-36.0); Mean Corpuscular Volume 90.2 fL (80.0-100.0); Mean Platelet Volume 10.9 fL (9.4-12.4); Monocytes # (auto) 1.21 K/uL (0.11-0.59); Monocytes % (auto) 10.4 %; Neutrophils # (auto) 9.45 K/uL (1.40-6.50); Neutrophils % (auto) 81.3 %; Platelet Count 157 K/uL (130-400); RDW Coefficient of Variation 15.2 % (11.5-14.5); RDW Standard Deviation 50.5 fL (36.4-46.3); Red Blood Count 4.08 M/uL (4.20-5.40); White Blood Count 11.63 K/ul (4.8-10.8)
[2024-07-12] MEDS: PANTOprazole 40 MG TAB PO SCH (09:14)
[2024-07-12] MEDS: FAMOTIDINE 20 MG TAB PO SCH (09:14)
[2024-07-12] MEDS: DOCUSATE SODIUM 100 MG CAP PO SCH (09:22)
--- NOTE | 2024-07-12 11:15 | Hospitalist Progress Note ---
Date of Service July 12, 2024 Assessment & Plan (1) Acute anterior wall [place]: Plan: Troponin greater than 2000 on admission and now trending down. Fortunately she is on systemic anticoagulation. Cardiology consultation requested and pending. Cardiac echo ordered and report is pending. No overt CHF at this time. Considering addition of low-dose metoprolol. Telemetry (2) Rhabdomyolysis: Plan: CK is elevated due to a combination of rhabdomyolysis and acute [place]. Serial labs. IV fluids have been tapered down. (3) NSVT (nonsustained ventricular tachycardia): Plan: This appears to be due to acute anterior wall injury. Telemetry. Intravenous amiodarone. Cardiac echo is pending. Cardiology consultation pending (4) Chronic obstructive pulmonary disease: Plan: Stable. Combivent PRN (5) Failure to thrive in adult: Plan: PT/OT evals once cleared from a cardiac perspective (6) Fall: Plan: Unwitnessed. Possibly due to cardiac dysrhythmia from acute anterior wall [place]. Telemetry. OT and PT evaluations when appropriate. Plan To be determined Admission and Anticipated Discharge Date Admission Date: July 11, 2024 Subjective Alert and oriented but legally blind. Very talkative. It appears the patient has suffered an anterior wall [place] based on EKG interpretation and elevated troponin. She is being treated for nonsustained ventricular tachycardia and is currently on an amiodarone drip. She is on Pradaxa anticoagulation chronically. I [place] texted cardiology and asked them to see her as soon as possible today. Cardiac echo ordered and pending. IV fluids tapered down. She does not appear to be in CHF at this time but is requiring low-flow oxygen to maintain saturation 93%. I spoke to her granddaughter, Seema, and updated her on the current situation. The patient is now n.p.o. and may need cardiac catheterization. Review of Systems 2 Review of Systems: Constitutionalno fever or chills ENTlegally blind. No epistaxis, no sore throat Respiratoryno cough, no wheezing, no shortness of breath Cardiacno palpitations, no chest pain, no syncope Be nausea, vomiting, diarrhea, melena, hematochezia GUno urinary retention, no urinary incontinence, no dysuria, no hematuria Musculoskeletalleft shoulder discomfort currently. No muscle tenderness Skinno bruising, no rashes, no pruritus Neurono isolated weakness, no paresthesia Psychno depression, no anxiety Physical Exam 2 Physical Exam: General-alert and oriented x3, no fever, no chills HEENT-head atraumatic and normocephalic, pupils equal and reactive to light, extraocular muscles intact Neck-no lymphadenopathy or thyromegaly, trachea midline Chest-clear to auscultation. No rales, wheezing or rhonchi Cardiac-regular rate and rhythm, normal S1 and S2 Abdomen-normal bowel sounds, no hepatosplenomegaly Extremities-no cyanosis, clubbing, or edema Skinbruising evident right shoulder area Neuro-cranial nerves II through XII intact, motor and sensory function within normal limits, strength symmetrical, no focal deficits Psych-normal affect, normal mood Results & Data Results & Data Vital Signs (Past 12 Hours) Vital Signs Temp Pulse Resp BP BP Pulse Ox O2 Del Method 07/12/24 07:35 36.9 C 86 17 99/67 L 93 Nasal Cannula 07/12/24 02:52 37.0 C 89 18 93/56 L 94 Nasal Cannula 07/12/24 02:05 82/60 L 07/12/24 01:41 89/54 L O2 Flow Rate 07/12/24 07:35 2 07/12/24 02:52 2.0 07/12/24 02:05 07/12/24 01:41 Laboratory Results 07/12/24 05:40 07/12/24 05:40 PG Care Time/CCT Total # of Minutes Spent Total Time Spent with Patient: Total time spent is greater than 50% in coordination of care (as documented) at patient's floor/unit and/or counseling patient: Coding Level of Care Code 85203 SUB INP/OBS CARE 3/50MIN Diagnoses Acute anterior wall [place] I21.09 Rhabdomyolysis M62.82 NSVT (nonsustained ventricular tachycardia) I47.29 Chronic obstructive pulmonary disease, unspecified COPD type J44.9 COPD type: unspecified COPD Failure to thrive in adult R62.7 Fall W19.XXXA (4) Chronic obstructive pulmonary disease COPD type: unspecified COPD Qualified Code(s): J44.9 - Chronic obstructive pulmonary disease, unspecified
--- NOTE | 2024-07-12 11:35 | Cardiology Consultation ---
Date of Consultation July 12, 2024 Assessment & Plan (1) Acute anterior wall NC: (2) Elevated troponin: (3) Fall: (4) Wide-complex tachycardia: Plan 1. Anterior NC: I believe she did have an anterior myocardial infarction, it probably occurred sometime before presentation, possibly that is what resulted in her falling into the bathtub. She has had a descending pattern on her troponin measurement so although I believe she did have a STEMI she is not a candidate for urgent catheterization due to the timeframe. We need to treat her with antiischemia medications and we will need to consider catheterization, possibly early next week. It is also conceivable or perhaps more likely that she has a stress-induced event considering her presentation. 2. Elevated troponin: Her troponin is quite elevated, consistent with a myocardial infarction, but the pattern is suggestive of this occurring sometime before presentation, perhaps a day or 2. This would be consistent with Takatsubo. 3. Fall: We are not sure why she fell, it may have been caused by the myocardial infarction or perhaps she did slip or pass out and the stress of laying in the bathtub and not being able to get out may have triggered the infarction. 4. Wide-complex rhythm: I believe this is consistent with atrial ectopy and aberrancy, that has been suppressed on amiodarone. I would recommend that we discontinue that today but I have not written that order. History of Present Illness Reason for Consultation: Elevated troponin, ST elevation. Attending Physician: Warren Bowden MD History of Present Illness This is a 79-year-old woman with a history of syncope and AV block for which she had a dual-chamber pacemaker implanted in the past. She is followed by Dr. Shah in our office, last seen November 06, 2023 when her pacemaker was functioning well. We do follow her with remote monitoring as well with the rep ort from June 20, 2024 showing proper function. She presents now having an unwitnessed fall and being found in a bathtub and being there for perhaps 2 days and being unable to get out. She lives alone and was not found until sometime later. A pacemaker interrogation was performed but the data is not scanned into the chart as yet. Her presenting electrocardiogram showed sinus tachycardia with what I believe are frequent premature atrial beats some with aberrancy. There does appear to be precordial ST elevation. Laboratory studies are notable for an elevated white count on presentation as well as an elevated potassium on a [id number] measurement although on the standard laboratory studies that does not seem to be the case and her creatinine is normal. Her initial troponin is very high at 2338, 2 hours later it had dropped to 2066 and 11 hours after the initial was 1760 now having dropped to 1091 some 18 hours after presentation. Her echocardiogram shows normal left ventricular size with concentric left ventricular hypertrophy and a reduced ejection fraction due to a hypokinetic mid anterior wall and akinetic apex. At the time of my evaluation of her she can describe stepping into the bathtub and slipping and does not know why she could not get out. Her daughter was present during my evaluation and feels that she could not have slipped, her daughter believes she may have lost consciousness and ended up in the bathtub. Allergies Allergy/AdvReac Type Severity Reaction Status Date / Time camphor Allergy Unknown SHORTNESS Verified 01/18/24 09:22 OF BREATH eucalyptus Allergy Unknown SHORTNESS Verified 01/18/24 09:22 OF BREATH menthol Allergy Unknown SHORTNESS Verified 01/18/24 09:22 OF BREATH petrolatum,white Allergy Unknown Verified 01/18/24 09:22 [From [facility]] turpentine oil Allergy Unknown Verified 01/18/24 09:22 [From [facility]] aspirin AdvReac Mild ABD. PAIN Verified 01/18/24 09:22 AND VOMITING black pepper Allergy Mild Nausea Uncoded 01/18/24 09:22 Home Medications Medication Instructions Recorded Confirmed Type vit C 50 mg-E 15 unit-zinc cit 4.5 1 tab PO QAM 01/27/19 01/18/24 History mg-lutein 2.5 mg-zeaxan chew tablet ([facility]) docusate sodium 100 mg capsule 100 mg PO .COMPLEX 02/04/19 01/18/24 History calcium 600 mg (as carbonate)-vit 1 tab PO DAILY 02/06/19 01/18/24 History D3 5 mcg (200 unit)-minerals tablet (Calcium 600 + Minerals) mupirocin 2 % topical ointment 1 appln topical .COMPLEX #15 grams 02/07/19 01/18/24 Rx fluticasone propionate 50 1 spray intranasal .COMPLEX #16 06/27/19 01/18/24 Rx mcg/actuation nasal grams spray,suspension (Flonase Allergy Relief) cholecalciferol (vitamin D3) 125 5,000 units PO DAILY #90 caps 09/13/19 01/18/24 Rx mcg (5,000 unit) capsule carboxymethylcellulose sodium 0.5 1 drp ophthalmic (eye) QID 08/24/22 01/18/24 History % eye drops in a dropperette (Refresh Plus) clobetasol 0.05 % topical ointment 1 applic topical BID PRN psoriasis 01/16/23 01/18/24 Rx #1 g nystatin 100,000 unit/gram topical 1 applic topical .COMPLEX #60 grams 03/02/23 01/18/24 Rx powder penciclovir 1 % topical cream 1 applic topical Q2H PRN herpes 03/02/23 01/18/24 Rx simplex 1 infection #2 grams famotidine 20 mg tablet 20 mg PO DAILY #30 tabs 09/25/23 01/18/24 Rx dabigatran etexilate 150 mg See Rx Instructions .Route 10/19/23 01/18/24 Rx capsule (Pradaxa) .COMPLEX #60 caps pantoprazole 40 mg tablet,delayed 40 mg PO QAM #30 tabs 10/19/23 01/18/24 Rx release meclizine 25 mg tablet See Rx Instructions .Route 02/07/24 Rx .COMPLEX #30 tabs ipratropium 20 mcg-albuterol 100 See Rx Instructions .Route 02/22/24 Rx mcg/actuation mist for inhalation .COMPLEX #4 grams (Combivent Respimat) Patient History Medical History Hypermagnesemia Esophageal diverticular disease Cardiac tamponade after RV perforation during pacemaker placement, now resolved Complete heart block now has pacemaker Left groin hernia Tinea corporis Benign positional vertigo Diverticulosis DVT (deep venous thrombosis) Infected wound Pulmonary emboli Left calcaneal fracture Loss of consciousness (03/17/14) Dehydration Surgical History Hx of inguinal hernia repair Family History Uncle No problems noted. Brother Lung cancer Myocardial infarction Father Myocardial infarction Cancer Stomach cancer Mother Myocardial infarction Other Diabetes Hypertension Denies family history of Ovarian cancer Prostate cancer Breast cancer Colorectal cancer Social History Smoking Status: Current every day smoker Tobacco Type: Cigarettes Second Hand Exposure: No; Do You Dip or Chew Tobacco: No; Hx Alcohol Use: Yes Alcohol type: hard liquor Alcohol Intake Frequency: Monthly or Less Hx Substance Use: No Preferred Language: Latvian Communication Ability: Effective Visual Impairment: Blindness Hearing Ability: Normal Decommissioning Well Site Manager Required: No Beliefs That Will Affect Care: None marital status: / Current Living Situation: Alone Current Living Situation Comment: Neighbors help her when she needs it. current occupational status: retired How many Children do You have: 4 How many Children do You have Comment: Oldest son . Other Information That Helps Us Care for You: No Feels Safe at Home: Yes Safety Concerns: Feels Safe At This Time Childhood Exposure to Second-Hand Smoke: Yes Diet: regular caffeine: No during the past year weight has: remained stable Dental Care, Regularly: No Physical Activity Frequency: Daily Seatbelt Use: always Sunscreen Use: No Do you think of yourself as: straight/heterosexual Gender Identity: Female Assistive Devices: Walker and Other Review of Systems Review of Systems: All systems reviewed & are unremarkable except as noted in HPI & below I am not sure how reliable review of systems is. Physical Exam Physical Exam: Constitutional: Alert, cooperative and in no obvious distress. HEENT: Unremarkable Neck: No jugular venous distention, carotid pulses are normal and equal bilaterally without bruits. Pulmonary: Clear to auscultation bilaterally. Cardiac: Regular rhythm with no murmur, gallop or rub. Abdomen: Soft, nontender with normal bowel sounds. Extremities: No edema. Neurologic: No focal findings. Skin: No rash or petechiae. She does have some ecchymosis. Results & Data Vital Signs (Past 12 Hours) Vital Signs Temp Pulse Resp BP BP Pulse Ox O2 Del Method 07/12/24 11:13 36.7 C 79 18 93/61 L 96 Nasal Cannula 07/12/24 07:35 36.9 C 86 17 99/67 L 93 Nasal Cannula 07/12/24 02:52 37.0 C 89 18 93/56 L 94 Nasal Cannula 07/12/24 02:05 82/60 L 07/12/24 01:41 89/54 L O2 Flow Rate 07/12/24 11:13 2 07/12/24 07:35 2 07/12/24 02:52 2.0 07/12/24 02:05 07/12/24 01:41 Laboratory Results Cardiac Enzymes 07/11/24 07/12/24 Range/Units 22:38 05:40 AST 38 (13-39) U/L Troponin I High Sens 1760.2 H* 1091.4 H* D (0-14) pg/ml CBC 07/12/24 Range/Units 05:40 WBC 11.63 H (4.8-10.8) K/ul RBC 4.08 L (4.20-5.40) M/uL Hgb 11.7 L D (12.0-16.0) g/dl Hct 36.8 L (37.0-47.0) % Plt Count 157 (130-400) K/uL Neut # (Auto) 9.45 H (1.40-6.50) K/uL Lymph # (Auto) 0.90 L (1.20-3.40) K/uL [place] # (Auto) 1.21 H (0.11-0.59) K/uL Eos # (Auto) 0.00 (0.00-0.50) K/uL Baso # (Auto) 0.01 (0.00-0.20) K/uL Comprehensive Metabolic Panel 07/12/24 Range/Units 05:40 Sodium 140 (136-145) mmol/L Potassium 4.0 (3.5-5.1) mmol/L Chloride 109 H (98-107) mmol/L Carbon Dioxide 24 (21-32) mmol/L BUN 31 H (6-23) mg/dl Creatinine 0.70 (0.6-1.2) mg/dl Glucose 90 (70-99(Fasting)) mg/dl Calcium 7.7 L (8.6-10.3) mg/dl AST 38 (13-39) U/L ALT 24 (7-52) U/L Alkaline Phosphatase 49 (34-104) U/L Total Protein 5.2 L D (6.0-8.3) gm/dl Albumin 3.0 L (3.4-5.0) gm/dl Intake and Output 07/11/24 07/12/24 07/12/24 22:59 06:59 14:59 Intake Total 1432.208 / 4242.208 2210 / 4242.208 1146.638 / 1146.638 Output Total 300 / 490 190 / 490 Balance 1132.208 / 3752.208 2019 375.208 1146.638 / 1146.638 Intake: IV 1132.208 / 3892.208 2160 / 3892.208 1146.638 / 1146.638 Acetaminophen 1,000 mg In 100 100 / 100 ml @ 400 mls/hr IV NOW STA Rx#: [id number] Amiodarone / D5w 360 mg In 200 132.208 / 132.208 194.555 / 194.555 ml @ 0.5 MG/MIN 16.667 mls/hr IV .Q12H YOHANA Rx#:[id number] Calcium Gluconate 1,000 mg In 60 / 60 60 ml @ 240 mls/hr IV NOW ONE Rx#:[id number] Lactated Ringer's 1,000 ml @ 1000 / 3000 2000 / 3000 952.083 / 952.083 125 mls/hr IV .Q8H YOHANA Rx#: [id number] Oral 300 / 350 50 / 350 Output: Urine Amount (Catheter) 300 / 490 190 / 490 Mercedes/Indwelling 300 / 490 190 / 490 Other: Weight 66.8 kg 65.1 kg Weight Measurement Method [facility] Diagnostic Findings Telemetry: Mostly sinus rhythm, 1 episode of atrial fibrillation from 2099 on July 11, 2024 until 0200 on July 12, 2024. Initially frequent atrial premature beats with a Cochran C I believe. PG Care Time/CCT Total # of Minutes Spent Total Time Spent with Patient: Total time spent is greater than 50% in coordination of care (as documented) at patient's floor/unit and/or counseling patient: Coding Level of Care Code 86963 INT INP/OBS CARE 3/75MIN Diagnoses Acute anterior wall NC I21.09 Elevated troponin R79.89 Fall W19.XXXA Wide-complex tachycardia R00.0
--- NOTE | 2024-07-12 12:02 | XCELERA ---
[id number]
[2024-07-12] MEDS: ALBUT/IPRATROP 3MG/0.5MG NEB 3 ML VIAL NEB SCH (12:45)
[2024-07-12] MEDS: METOPROLOL TARTRATE 25 MG TAB PO SCH (14:18)
[2024-07-12] MEDS: ACETAMINOPHEN 325 MG TAB PO PRN (14:55)
[2024-07-13 07:16] LABS: Basophils # (auto) 0.01 K/uL (0.00-0.20); Basophils % (auto) 0.1 %; Eosinophils # (auto) 0.02 K/uL (0.00-0.50); Eosinophils % (auto) 0.3 %; Hematocrit (blood only) 35.2 % (37.0-47.0); Hemoglobin 11.4 g/dl (12.0-16.0); Immature Granulocytes # (auto) 0.05 K/uL (0.01-0.20); Immature Granulocytes % (auto) 0.7 %; Lymphocytes # (auto) 0.64 K/uL (1.20-3.40); Lymphocytes % (auto) 9.5 %; Mean Corpuscular Hemoglobin 28.6 pg (25.0-34.0); Mean Corpuscular Hgb Conc 32.4 g/dL (32.0-36.0); Mean Corpuscular Volume 88.4 fL (80.0-100.0); Mean Platelet Volume 10.8 fL (9.4-12.4); Monocytes # (auto) 0.48 K/uL (0.11-0.59); Monocytes % (auto) 7.1 %; Neutrophils # (auto) 5.55 K/uL (1.40-6.50); Neutrophils % (auto) 82.3 %; Platelet Count 128 K/uL (130-400); RDW Coefficient of Variation 15.2 % (11.5-14.5); RDW Standard Deviation 49.6 fL (36.4-46.3); Red Blood Count 3.98 M/uL (4.20-5.40); White Blood Count 6.75 K/ul (4.8-10.8)
--- NOTE | 2024-07-13 07:16 | Electrocardiogram Report ---
Test Reason : Blood Pressure : */* mmHG Vent. Rate : 111 BPM Atrial Rate : 111 BPM P-R Int : 136 ms QRS Dur : 112 ms QT Int : 422 ms P-R-T Axes : 69 -89 * degrees QTcB Int : 573 ms Sinus tachycardia Suspect premature atrial beats with aberrancy Right bundle branch block Left anterior fascicular block Bifascicular block Anteroseptal infarct , acute T wave abnormality, consider lateral ischemia ACUTE WI / STEMI Abnormal ECG When compared with ECG of 27-Jan-2019 16:23, Anterior infarct is now Present Confirmed by Eric Jaramillo ([id number]) on 07/13/2024 7:16:26 AM Referred By: REFERRED SELF Confirmed By: Eric Jaramillo
--- NOTE | 2024-07-13 07:22 | Electrocardiogram Report ---
Test Reason : Blood Pressure : */* mmHG Vent. Rate : 89 BPM Atrial Rate : 89 BPM P-R Int : 136 ms QRS Dur : 114 ms QT Int : 468 ms P-R-T Axes : 9 -82 100 degrees QTcB Int : 569 ms Sinus rhythm Acute anterior infarction Ventricular pacing with fusion is now present Abnormal ECG When compared with ECG of 11-Jul-2024 11:23, (unconfirmed) HR has decreased Confirmed by Eric Jaramillo ([id number]) on 07/13/2024 7:22:46 AM Referred By: REFERRED SELF Confirmed By: Eric Jaramillo
[2024-07-13 07:32] LABS: BUN Creatinine Ratio 30.4 (10-20); Calcium 7.8 mg/dl (8.6-10.3); Creatinine Clr Calc Pharmacy 78.7 ml/min
--- NOTE | 2024-07-13 07:47 | Electrocardiogram Report ---
Test Reason : Blood Pressure : */* mmHG Vent. Rate : 78 BPM Atrial Rate : 78 BPM P-R Int : 138 ms QRS Dur : 126 ms QT Int : 414 ms P-R-T Axes : 71 -81 67 degrees QTcB Int : 471 ms Normal sinus rhythm Left axis deviation Right bundle branch block Anteroseptal infarct , possibly acute ACUTE PA / STEMI Abnormal ECG When compared with ECG of 11-Jul-2024 23:06, (unconfirmed) HR has decreased Confirmed by Eric Jaramillo ([id number]) on 07/13/2024 7:47:34 AM Referred By: REFERRED SELF Confirmed By: Eric Jaramillo
[2024-07-13 07:50] LABS: Potassium 3.9 mmol/L (3.5-5.1)
[2024-07-13 09:39] LABS: Troponin I High Sensitivity 360.4 pg/ml (0-14)
--- NOTE | 2024-07-13 09:41 | XRay Report ---
EXAM: Radiograph of the Chest 1 View INDICATION: History Reason For Study TECHNIQUE: Frontal view of the chest. COMPARISON: 07/11/2024 FINDINGS: Lungs and pleural spaces: New patchy consolidation noted in the right lung base. New small right pleural effusion and stable small left pleural effusion. Mild vascular congestion present. No pneumothorax. Heart: Stable cardiac shadow and pacing device. Mediastinum: Normal contour. Bones/joints: No fracture, erosion or dislocation. Soft tissues: No abnormality noted. No radiopaque foreign body noted. Upper abdomen: No abnormality noted. IMPRESSION: 1. New mild right basilar atelectasis or pneumonia and small right pleural effusion. Stable left pleural effusion. 2. Mild pulmonary vascular congestion present. ACT 112: Negative or not required by law. Electronically signed by Dunia Pace 07-13-2024 09:40 AM
--- NOTE | 2024-07-13 11:02 | Hospitalist Progress Note ---
Date of Service July 13, 2024 Assessment & Plan (1) Acute anterior wall MN: Plan: Troponin greater than 2000 on admission and now trending down. Fortunately she is on systemic anticoagulation. Cardiology consultation appreciated. This could be Takotsubo stress cardiomyopathy. She will need left heart catheterization this admission. Cardiac echo report noted. She has hypokinesis of the mid to distal anterior wall and septum with akinetic anterior wall. Ejection fraction is estimated at 40%. No overt CHF at this time. Telemetry (2) Rhabdomyolysis: Plan: CK is elevated due to a combination of rhabdomyolysis and acute MN. Serial labs. IV fluids have been tapered down. (3) NSVT (nonsustained ventricular tachycardia): Plan: This appears to be due to acute anterior wall injury. Takotsubo stress cardiomyopathy is a possibility. Telemetry. Currently on intravenous amiodarone and oral metoprolol.. Cardiac echo report noted. Cardiology consultation and recommendations appreciated. (4) Chronic obstructive pulmonary disease: Plan: Stable. Combivent PRN (5) Failure to thrive in adult: Plan: PT/OT evals once cleared from a cardiac perspective (6) Fall: Plan: Unwitnessed fall in her bathtub. Possibly due to cardiac dysrhythmia from acute anterior wall MN. Telemetry. OT and PT evaluations when appropriate. Plan To be determined Admission and Anticipated Discharge Date Admission Date: July 11, 2024 Subjective Alert and oriented. She is requiring 2 L of oxygen. Repeat chest x-ray reveals right lower lobe infiltrate suspicious for pneumonia. Zosyn has been started, day 1. No sputum for culture. No overt CHF. She appears to have suffered an anterior wall MN with echo revealing ejection fraction approximately 40% with mid anterior wall and septal hypokinesis with apical akinesis. There is a possibility this could be Takotsubo cardiomyopathy. Appreciate cardiology consultation recommendations. She will need left heart catheterization this admission. She remains on intravenous amiodarone for control of nonsustained ventricular tachycardia and also oral metoprolol. Repeat EKG is pending. Troponin has decreased to 360 and CK has decreased to 412 Review of Systems 2 Review of Systems: Constitutionalno fever or chills ENTlegally blind. No epistaxis, no sore throat Respiratoryno cough, no wheezing. No sputum production. She does have dyspnea on exertion Cardiacno palpitations, no chest pain, no syncope Be nausea, vomiting, diarrhea, melena, hematochezia GUno urinary retention, no urinary incontinence, no dysuria, no hematuria Musculoskeletalleft shoulder discomfort from falling in the bathtub. Skin no rashes, no pruritus. Right shoulder ecchymosis from falling in the bathtub Neurono isolated weakness, no paresthesia Psychno depression, no anxiety Physical Exam 2 Physical Exam: General-alert and oriented x3, no fever HEENT-head atraumatic and normocephalic, legally blind. Pupils equal and reactive to light, extraocular muscles intact Neck-no lymphadenopathy or thyromegaly, trachea midline Chest-clear to auscultation. No rales, wheezing or rhonchi Cardiac-regular rate and rhythm, normal S1 and S2 Abdomen-normal bowel sounds, no hepatosplenomegaly Extremities-no cyanosis, clubbing, or edema. Limited range of motion left arm from left shoulder discomfort. Skinecchymoses evident right shoulder area Neuro-cranial nerves II through XII intact, motor and sensory function within normal limits, strength symmetrical with generalized weakness due to advanced age, no focal deficits Psych-normal affect, normal mood Results & Data Results & Data Vital Signs (Past 12 Hours) Vital Signs Temp Pulse Pulse Resp BP Pulse Ox O2 Del Method 07/13/24 07:22 37.0 C 76 18 98/61 L 94 Nasal Cannula 07/13/24 07:18 76 18 94 Nasal Cannula 07/13/24 07:00 76 07/13/24 03:27 36.8 C 75 18 93/56 L 91 Nasal Cannula 07/13/24 00:07 71 07/12/24 23:47 37.0 C 74 16 95/59 L 94 Nasal Cannula O2 Flow Rate 07/13/24 07:22 2 07/13/24 07:18 2 07/13/24 07:00 07/13/24 03:27 2.0 07/13/24 00:07 07/12/24 23:47 2 Laboratory Results 07/13/24 06:35 07/13/24 06:35 PG Care Time/CCT Total # of Minutes Spent Total Time Spent with Patient: Total time spent is greater than 50% in coordination of care (as documented) at patient's floor/unit and/or counseling patient: Coding Level of Care Code 23267 SUB INP/OBS CARE 3/50MIN Diagnoses Acute anterior wall MN I21.09 Rhabdomyolysis M62.82 NSVT (nonsustained ventricular tachycardia) I47.29 Chronic obstructive pulmonary disease, unspecified COPD type J44.9 COPD type: unspecified COPD Failure to thrive in adult R62.7 Fall W19.XXXA (4) Chronic obstructive pulmonary disease COPD type: unspecified COPD Qualified Code(s): J44.9 - Chronic obstructive pulmonary disease, unspecified
--- NOTE | 2024-07-13 11:37 | Cardiology Progress Note ---
Date of Service July 13, 2024 Assessment & Plan (1) Acute anterior wall ME: Plan: -As outlined in Dr. Jaramillo's note. -Continue metoprolol to tartrate. -Would add low-dose aspirin. -Consider cardiac catheterization. (2) Elevated troponin: Plan: -High-sensitivity troponin peaked at 2338. -Echocardiogram notes mild left ventricular dysfunction with ejection fraction of 40 to 45%. -There is an anteroapical wall motion abnormality. -Continue medical management. -Consider cardiac catheterization as above. (3) Wide-complex tachycardia: Plan: -Dr. Jaramillo feels this was an atrial tachycardia with aberrancy. -We discontinue intravenous amiodarone. Admission and Anticipated Discharge Date Admission Date: July 11, 2024 Subjective The patient is resting comfortably in bed without complaints of chest pain, dyspnea, or palpitations. Physical Exam Physical Exam: In general it is a well-developed well-nourished white female no acute distress. HEENT exam is negative. Neck is supple with full carotid upstrokes. There are no carotid bruits. Jugular venous pressure is flat at 90 degrees. No thyromegaly. Cardiovascular exam reveals a regular rhythm with distant heart sounds. No obvious murmurs. Lungs are clear without rales, rhonchi, or wheezes. Abdomen is soft without bruits. Extremities reveal intact radial artery pulses bilaterally. No peripheral edema. Results & Data Vital Signs (Past 12 Hours) Vital Signs Temp Pulse Pulse Resp BP Pulse Ox O2 Del Method 07/13/24 11:28 36.8 C 82 19 94/58 L 93 Nasal Cannula 07/13/24 07:22 37.0 C 76 18 98/61 L 94 Nasal Cannula 07/13/24 07:18 76 18 94 Nasal Cannula 07/13/24 07:00 76 07/13/24 03:27 36.8 C 75 18 93/56 L 91 Nasal Cannula 07/13/24 00:07 71 07/12/24 23:47 37.0 C 74 16 95/59 L 94 Nasal Cannula O2 Flow Rate 07/13/24 11:28 2 07/13/24 07:22 2 07/13/24 07:18 2 07/13/24 07:00 07/13/24 03:27 2.0 07/13/24 00:07 11/29/24 23:47 2 Diagnostic Findings monitoring coordinator notes no further atrial tachycardia with aberrancy. PG Care Time/CCT Total # of Minutes Spent Total Time Spent with Patient: Total time spent is greater than 50% in coordination of care (as documented) at patient's floor/unit and/or counseling patient: Coding Level of Care Code 93385 SUB INP/OBS CARE 3/50MIN Diagnoses Acute anterior wall ME I21.09 Elevated troponin R79.89 Wide-complex tachycardia R00.0
--- NOTE | 2024-07-13 13:01 | Electrocardiogram Report ---
Test Reason : Blood Pressure : */* mmHG Vent. Rate : 141 BPM Atrial Rate : 141 BPM P-R Int : 176 ms QRS Dur : 142 ms QT Int : 288 ms P-R-T Axes : 256 -87 81 degrees QTcB Int : 441 ms Sinus tachycardia with Premature supraventricular complexes Right bundle branch block Left anterior fascicular block Bifascicular block Abnormal ECG When compared with ECG of 11-Jul-2024 14:09, Sinus tachycardia has replaced Electronic ventricular pacemaker Vent. rate has increased by 52 bpm Confirmed by Reginaldo Stock ([id number]) on 07/13/2024 1:00:31 PM Referred By: REFERRED SELF Confirmed By: Reginaldo Stock
[2024-07-13] MEDS: 4.5GM X1 IV ONE (14:22)
[2024-07-13] MEDS: PIPERACILLIN/TAZOBACTAM 4.5 GM/100 ML BAG IV SCH (18:22)
[2024-07-13] MEDS: NYSTATIN POWDER 15GM BTL EXT PRN (21:30)
[2024-07-13] MEDS: LIDOCAINE 5% 1 PATCH TD STA (21:41)
[2024-07-14 07:49] LABS: Basophils # (auto) 0.01 K/uL (0.00-0.20); Basophils % (auto) 0.2 %; Eosinophils # (auto) 0.06 K/uL (0.00-0.50); Eosinophils % (auto) 0.9 %; Hematocrit (blood only) 34.5 % (37.0-47.0); Hemoglobin 10.8 g/dl (12.0-16.0); Immature Granulocytes # (auto) 0.02 K/uL (0.01-0.20); Immature Granulocytes % (auto) 0.3 %; Lymphocytes # (auto) 0.62 K/uL (1.20-3.40); Lymphocytes % (auto) 9.8 %; Mean Corpuscular Hemoglobin 28.2 pg (25.0-34.0); Mean Corpuscular Hgb Conc 31.3 g/dL (32.0-36.0); Mean Corpuscular Volume 90.1 fL (80.0-100.0); Mean Platelet Volume 11.1 fL (9.4-12.4); Monocytes # (auto) 0.56 K/uL (0.11-0.59); Monocytes % (auto) 8.8 %; Neutrophils # (auto) 5.08 K/uL (1.40-6.50); Platelet Count 129 K/uL (130-400); RDW Coefficient of Variation 15.4 % (11.5-14.5); RDW Standard Deviation 50.4 fL (36.4-46.3); Red Blood Count 3.83 M/uL (4.20-5.40); White Blood Count 6.35 K/ul (4.8-10.8)
[2024-07-14 08:09] LABS: BUN Creatinine Ratio 16.4 (10-20); Calcium 7.9 mg/dl (8.6-10.3); Creatinine Clr Calc Pharmacy 60.4 ml/min
--- NOTE | 2024-07-14 14:43 | Hospitalist Progress Note ---
Date of Service July 14, 2024 Assessment & Plan (1) Acute anterior wall MS: Plan: Troponin greater than 2000 on admission and now trending down. Fortunately she is on systemic anticoagulation. Cardiology consultation appreciated. This could be Takotsubo stress cardiomyopathy. Left heart catheterization is scheduled for tomorrowJuly 15. Cardiac echo report noted. She has hypokinesis of the mid to distal anterior wall and septum with akinetic anterior wall. Ejection fraction is estimated at 40%. No overt CHF at this time. Telemetry (2) Rhabdomyolysis: Plan: CK is elevated on admission due to a combination of rhabdomyolysis and acute MS. Now down to 412 todayJuly 14. Serial labs. (3) NSVT (nonsustained ventricular tachycardia): Plan: This appears to be due to acute anterior wall injury. Takotsubo stress cardiomyopathy is a possibility. Telemetry. Currently on intravenous amiodarone and oral metoprolol.. Cardiac echo report noted. Cardiology consultation and recommendations appreciated. (4) Pneumonia: Plan: Right lower lobe infiltrate on chest x-ray is consistent with pneumonia. She is now on intravenous Zosyn, day 2. Will repeat chest x-ray again tomorrowJuly 15 (5) Chronic obstructive pulmonary disease: Plan: Stable. Combivent PRN (6) Failure to thrive in adult: Plan: PT/OT evals once cleared from a cardiac perspective (7) Fall: Plan: Unwitnessed fall in her bathtub. Possibly due to cardiac dysrhythmia from acute anterior wall MS. Telemetry. OT and PT evaluations when appropriate. Plan To be determined by heart cath results Admission and Anticipated Discharge Date Admission Date: July 11, 2024 Subjective Alert and oriented. No new problems. Afebrile. Intravenous Zosyn day 2 for suspected right lower lobe pneumonia. CK has decreased to 412 now. Troponin is down to 360. Will repeat portable chest x-ray again tomorrowJuly 15. She remains on the amiodarone drip and oral metoprolol. Left heart cath planned for tomJuly 16 Review of Systems 2 Review of Systems: Constitutionalno fever or chills ENTlegally blind. No epistaxis, no sore throat Respiratoryno cough, no wheezing. No sputum production. She does have dyspnea on exertion Cardiacno palpitations, no chest pain, no syncope Be nausea, vomiting, diarrhea, melena, hematochezia GUno urinary retention, no urinary incontinence, no dysuria, no hematuria Musculoskeletalleft shoulder discomfort from falling in the bathtub. Skin no rashes, no pruritus. Right shoulder ecchymosis from falling in the bathtub Neurono isolated weakness, no paresthesia Psychno depression, no anxiety Physical Exam 2 Physical Exam: General-alert and oriented x3, no fever HEENT-head atraumatic and normocephalic, legally blind. Pupils equal and reactive to light, extraocular muscles intact Neck-no lymphadenopathy or thyromegaly, trachea midline Chest-clear to auscultation. No rales, wheezing or rhonchi Cardiac-regular rate and rhythm, normal S1 and S2 Abdomen-normal bowel sounds, no hepatosplenomegaly Extremities-no cyanosis, clubbing, or edema. Limited range of motion left arm from left shoulder discomfort. Skinecchymoses evident right shoulder area Neuro-cranial nerves II through XII intact, motor and sensory function within normal limits, strength symmetrical with generalized weakness due to advanced age, no focal deficits Psych-normal affect, normal mood Results & Data Results & Data Vital Signs (Past 12 Hours) Vital Signs Temp Pulse Pulse Resp BP BP Pulse Ox 07/14/24 12:56 96 H 15 93 07/14/24 11:19 36.6 C 65 20 102/67 94 07/14/24 07:56 36.4 C L 76 19 103/65 93 07/14/24 07:30 71 15 92 07/14/24 07:00 65 07/14/24 02:43 37.0 C 64 16 92/55 L 92 O2 Del Method O2 Flow Rate 07/14/24 12:56 Nasal Cannula 2 07/14/24 11:19 Nasal Cannula 2 07/14/24 07:56 Nasal Cannula 2 07/14/24 07:30 Nasal Cannula 2 07/14/24 07:00 07/14/24 02:43 Nasal Cannula 2.0 Laboratory Results 07/14/24 07:08 07/14/24 07:08 PG Care Time/CCT Total # of Minutes Spent Total Time Spent with Patient: Total time spent is greater than 50% in coordination of care (as documented) at patient's floor/unit and/or counseling patient: Coding Level of Care Code 37053 SUB INP/OBS CARE 2/35MIN Diagnoses Acute anterior wall MS I21.09 Rhabdomyolysis M62.82 NSVT (nonsustained ventricular tachycardia) I47.29 Pneumonia J18.9 Chronic obstructive pulmonary disease, unspecified COPD type J44.9 COPD type: unspecified COPD Failure to thrive in adult R62.7 Fall W19.XXXA (5) Chronic obstructive pulmonary disease COPD type: unspecified COPD Qualified Code(s): J44.9 - Chronic obstructive pulmonary disease, unspecified
[2024-07-14] MEDS ORDERED: Heparin IV Adult Wt-Based Low-Dose *NO* INITIAL Bolus Protocol IV STA (20:28)
--- NOTE | 2024-07-14 20:30 | Communication Note ---
Date of Service: July 14, 2024 Notified by nursing on concern fo chest pain. Evaluated pt at bedside and in new acute distress. Heart with regular rate and rhythm. Pain started at dinner ~1700 and has slowly improved since. Mid sternal, also notes left shoudler pain. Repeat EKG without any new signs of ischemia. Repeat troponin continues to downtrend. Blood pressure 90s/60s- so defer nitro/morphine. Discussed with injection molding machine setter fire claims adjuster and likely plan for medical management moving forward. Will switch from Pradaxa to heparin gtt in case of need for cath moving forward. Requesting lidocaine patch for shoulder- ordered.
[2024-07-14] MEDS: LIDOCAINE 5% 1 PATCH TD STA (20:51)
[2024-07-15 06:05] LABS: Basophils # (auto) 0.01 K/uL (0.00-0.20); Basophils % (auto) 0.2 %; Eosinophils # (auto) 0.14 K/uL (0.00-0.50); Eosinophils % (auto) 2.3 %; Hematocrit (blood only) 34.4 % (37.0-47.0); Hemoglobin 10.6 g/dl (12.0-16.0); Immature Granulocytes # (auto) 0.05 K/uL (0.01-0.20); Immature Granulocytes % (auto) 0.8 %; Lymphocytes # (auto) 0.57 K/uL (1.20-3.40); Lymphocytes % (auto) 9.2 %; Mean Corpuscular Hgb Conc 30.8 g/dL (32.0-36.0); Mean Corpuscular Volume 90.8 fL (80.0-100.0); Mean Platelet Volume 11.2 fL (9.4-12.4); Monocytes # (auto) 0.56 K/uL (0.11-0.59); Neutrophils # (auto) 4.87 K/uL (1.40-6.50); Neutrophils % (auto) 78.5 %; Platelet Count 129 K/uL (130-400); RDW Coefficient of Variation 15.4 % (11.5-14.5); RDW Standard Deviation 51.3 fL (36.4-46.3); Red Blood Count 3.79 M/uL (4.20-5.40)
[2024-07-15 06:16] LABS: BUN Creatinine Ratio 13.7 (10-20); Calcium 7.9 mg/dl (8.6-10.3); Creatinine Clr Calc Pharmacy 60.4 ml/min; Potassium 3.8 mmol/L (3.5-5.1)
[2024-07-15 06:32] LABS: INR 1.1 (0.9-1.1); Partial Thromboplastin Ratio 1.4; Partial Thromboplastin Time 39 Seconds (21-31); Prothrombin Time 11.4 Seconds (9.0-12.0)
--- NOTE | 2024-07-15 08:11 | XRay Report ---
EXAM: XR chest 1V portable CLINICAL HISTORY: RLL PNA ADS/KAA TECHNIQUE: X-ray examination of the chest AP portable view. COMPARISON: 07/13/2024. FINDINGS: A left-sided Dual-chamber pacemaker is seen well-placed. Bilateral basilar airspace infiltrates are seen. Left-sided pleural effusion is seen. Cardiac size is increased. Prominent diffuse pulmonary interstitial thickening. No pneumothorax seen. Intact bony function. IMPRESSION: 1. Bilateral basilar airspace infiltrates are seen. Clinical and lab correlation is advised to rule out pulmonary infection. 2. Left-sided pleural effusion is seen. 3. Cardiomegaly. 4. No interval changes compared to prior study. Electronically signed by Wilfredo Grande 07-15-2024 08:11 AM
[2024-07-15] MEDS: HEPARIN SODIUM/DEXTROSE 25,000 UNITS/500 ML BAG IV SCH (09:33)
[2024-07-15] MEDS: Heparin IV Adult Wt-Based Low-Dose *NO* INITIAL Bolus Protocol IV ONE (09:33)
--- NOTE | 2024-07-15 10:48 | Pre Anesthesia Assessment ---
Date of Service July 15, 2024 Pre Sedation Assessment Vital Signs Temp Pulse Pulse Resp BP BP BP 07/15/24 10:25 66 18 121/76 07/15/24 07:50 98.1 F 70 16 108/68 07/15/24 07:17 70 14 07/15/24 07:00 73 07/15/24 03:51 98.1 F 81 18 111/86 07/15/24 01:34 74 07/14/24 23:24 98.1 F 74 18 92/58 L 07/14/24 20:16 72 18 07/14/24 19:30 80 104/61 07/14/24 19:15 07/14/24 15:27 98.1 F 74 19 94/63 L 07/14/24 15:00 07/14/24 12:56 96 H 15 07/14/24 11:19 97.9 F 65 20 102/67 Pulse Ox O2 Del Method O2 Del Method O2 Flow Rate O2 Flow Rate 07/15/24 10:25 97 Room Air 07/15/24 07:50 94 Nasal Cannula 2 07/15/24 07:17 95 Nasal Cannula 2 07/15/24 07:00 07/15/24 03:51 Nasal Cannula 07/15/24 01:34 07/14/24 23:24 92 Nasal Cannula 07/14/24 20:16 93 Nasal Cannula 2 07/14/24 19:30 07/14/24 19:15 Nasal Cannula 2 07/14/24 15:27 93 Nasal Cannula 2 07/14/24 15:00 Nasal Cannula 4 07/14/24 12:56 93 Nasal Cannula 2 07/14/24 11:19 94 Nasal Cannula 2 Cardiovascular + regular rate Respiratory + respiratory effort normal Pre-Sedation Airway Assessment Smoking Status: Current every day smoker Hx Sleep Apnea: No Hx Difficult Intubation: No Short, Thick Neck: No Thyromental Distance: > or= 3.5 Finger Breadths Oral Cavity: + WNL Mallampati Class: III ASA: ASA3 NPO Status Date of Last Intake of Fluids: 07/14/24 Time of Last Intake of Fluids: 22:00 Date of Last Intake of Solid Food: 07/14/24 Time of Last Intake of Solid Foods: 22:00 Procedure Planning Contraindications for Sedation: none Current Medications Reviewed: Yes Notes The planned sedation has been discussed with the patient. Informed Consent was obtained. I have identified the patient, determined the appropriateness of sedation and have assessed the patient immediately prior to the procedure. All medicine(s) and interventions are by my order.
[2024-07-15] MEDS: niCARdipine 2,000 MCG/20 ML SYR ONE (11:18)
[2024-07-15] MEDS: NITROGLYCERIN/D5W 100MCG/ML 20ML SYR ONE (11:19)
[2024-07-15] MEDS: fentaNYL citrate PF 100 MCG/2 ML VIAL ONE (11:20)
[2024-07-15] MEDS: MIDAZOLAM HCL 1 MG/ML 2ML VIAL ONE (11:20)
[2024-07-15] MEDS: HEPARIN (PORCINE) 1000 UNIT/ML 10 ML (CATH LAB USE ONLY) ONE (11:20)
[2024-07-15] MEDS: OPTIRAY 350 ONE (11:21)
--- NOTE | 2024-07-15 11:27 | Post Anesthesia Assessment ---
Date of Service July 15, 2024 Post Sedation Assessment Vital Signs Temp Pulse Pulse Resp BP BP BP 07/15/24 10:25 66 18 121/76 07/15/24 07:50 98.1 F 70 16 108/68 07/15/24 07:17 70 14 07/15/24 07:00 73 07/15/24 03:51 98.1 F 81 18 111/86 07/15/24 01:34 74 07/14/24 23:24 98.1 F 74 18 92/58 L 07/14/24 20:16 72 18 07/14/24 19:30 80 104/61 07/14/24 19:15 07/14/24 15:27 98.1 F 74 19 94/63 L 07/14/24 15:00 07/14/24 12:56 96 H 15 Pulse Ox O2 Del Method O2 Del Method O2 Flow Rate O2 Flow Rate 07/15/24 10:25 97 Room Air 07/15/24 07:50 94 Nasal Cannula 2 07/15/24 07:17 95 Nasal Cannula 2 07/15/24 07:00 07/15/24 03:51 Nasal Cannula 07/15/24 01:34 07/14/24 23:24 92 Nasal Cannula 07/14/24 20:16 93 Nasal Cannula 2 07/14/24 19:30 07/14/24 19:15 Nasal Cannula 2 07/14/24 15:27 93 Nasal Cannula 2 07/14/24 15:00 Nasal Cannula 4 07/14/24 12:56 93 Nasal Cannula 2 Recovery Score Activity: Moves 4 extremities Respiration: Deep Breath/Cough Circulation: +/-20% PreAnes Value Consciousness: Fully Awake Oxygen Saturation: O2 needed for >90% Discharge Sedation Level of Care: Fast Track Phase II Post Sedation Plan On clinical assessment, the patient appears to have tolerated the sedation w ithout complications. Patient is recovering as anticipated. Patient will continue to be monitored by nursing and may be discharged when sedation discharge criteria are met per below protocol. Upon Completions of procedure up to 15 minutes continue every 5 minute vital signs and the P.A.R. score; then discharge to a Phase I or Fast Track to Phase II per the following guidelines: * Discharge Patient to appropriate Phase II area if PAR is 8 or greater or return to pre- procedure baseline. The post - procedure orders will be as directed. * If PAR score is less than 8 or not return to pre-procedure baseline then patient will follow Phase I monitoring till PAR is reached for Phase II. The Phase I may be done in procedure room or may call to secure a Phase I area. * If naloxone or flumazenil are used for reversal, hold in Phase I for continued monitoring from when last reversal dose was given for a minimum of 60 minutes or longer pending the nurse and/or physician discretion of patient condition before discharge to Phase II. Please call the Sedation Physician to re-evaluate and complete post-note for discharge to Phase II area. Do NOT discharge from procedure sedation or Phase 1 until post- sedation evaluation note is complete by procedure /sedation MD Sedation Discharge Instructions to be given to the patient at discharge to home.
--- NOTE | 2024-07-15 11:44 | Cardiac Catheterization ---
[facility] Data: Tractor Operator Battery Cardiac Status Clinical evaluation leading to the procedure CAD Presenation: Non STEMI Anginal Classification: CCS IV Diagnostic Physicians Name: Ron Mosher MD Closure Device Recommendations: Medical Therapy and/or Counseling Cardiac Cath Procedure Full Procedure Date July 15, 2024 Pre-Procedure Diagnosis Pre-Procedure Diagnosis: Non STEMI and Cardiomyopathy AUC Score AUC Score: 8 Post-Procedure Diagnosis Post-Procedure Diagnosis: Moderate CAD and Elevated Intracardiac Pressures Procedure(s) Performed Procedure(s) Performed: Coronary Angiography and Left Heart Cath Devulcanizer Operator Ron Mosher MD Switchboard Operator Assistant(s) Cathleen Estimated Blood Loss Estimated Blood Loss: 10 Medication(s) Medication(s): Lidocaine 1%, Nicardipine and Nitroglycerin Summary of Findings Indication: NSTEMI, new LV dysfunction with anterior wall motion abnormality Access: 6 Fr slender right radial artery Catheters: Sparks Findings: LM -medium caliber, no significant disease LAD -medium caliber, mildly calcified, 25% proximal to mid disease, remainder of mid/distal vessel without significant disease and wraps around apex. Small high D1 with 80% proximal stenosis. Medium D2 without disease. Circumflex -medium caliber, 40-50% distal stenosis after takeoff of OM 2. Medium OM2 40% ostial. Left PLB without significant disease. RCA -dominant, medium caliber, no significant disease. Small to medium caliber RPDA, RPLB tortuous without disease. LVEDP -27 Arterial Closure: TR band Summary: 1. Mild to moderate nonobstructive coronary artery disease in major epicardial coronary arteries -25% proximal to mid LAD 40-50% distal circumflex involving bifurcation with OM 2 2. Severe small branch vessel disease 80% proximal D1 (<2 mm diameter) 3. Elevated intracardiac filling pressure Recommendations: No acute or high risk disease to explain patient's LV dysfunction/wall motion abnormality. Findings most consistent with stress-induced cardiomyopathy. Continue GDMT for cardiomyopathy Continue diuresis Medical management of small branch vessel disease Hemodynamics Rest Ao:: 107/63/81 Final Ao: 110/59/79 LV: 110/27 Recommendations Recommendations: Medical Therapy and/or Counseling Radiation Exposure (mGy) 655 Contrast (mls) 70 Anesthesia Moderate [id number] Procedural Complication(s) None Disposition PCU I attest to the content of the Intraoperative Record and any orders documented therein. Any exceptions are noted below. [facility] Card Cath Procedure Codes Cardiac Catheterization Procedure 1: Cardiovascular Cath Procedures: 05569 Coronaries and LHC (+/-LV) PG Care Time/CCT Total # of Minutes Spent Total Time Spent with Patient: Total time spent is greater than 50% in coordination of care (as documented) at patient's floor/unit and/or counseling patient:
[2024-07-15] MEDS: ASPIRIN 81 MG CHEW ONE (12:16)
[2024-07-15] MEDS: ASPIRIN 81 MG ECTAB PO SCH (12:16)
--- NOTE | 2024-07-15 13:56 | Electrocardiogram Report ---
Test Reason : Blood Pressure : */* mmHG Vent. Rate : 73 BPM Atrial Rate : 73 BPM P-R Int : 138 ms QRS Dur : 112 ms QT Int : 462 ms P-R-T Axes : 49 -53 248 degrees QTcB Int : 508 ms Normal sinus rhythm Possible Left atrial enlargement Incomplete right bundle branch block Left anterior fascicular block Anteroseptal infarct (cited on or before 12-Jul-2024) Abnormal ECG When compared with ECG of 12-Jul-2024 09:27, Serial changes of evolving Anteroseptal infarct Confirmed by Reginaldo Stock ([id number]) on 07/15/2024 1:56:05 PM Referred By: REFERRED SELF Confirmed By: Reginaldo Stock
[2024-07-15] MEDS: FUROSEMIDE INJ 20 MG/2 ML VIAL IV ONE (13:58)
[2024-07-15] MEDS: cefTRIAXone SODIUM 2,000 MG/50 ML BAG IV SCH (17:21)
[2024-07-15] MEDS: DOXYCYCLINE HYCLATE 100 MG in D5W MINI-B 100 ML (Q12H) IV SCH (17:21)
--- NOTE | 2024-07-15 17:45 | Hospitalist Progress Note ---
Date of Service July 15, 2024 Assessment & Plan (1) Acute anterior wall MO: Plan: Troponin greater than 2000 on admission and now trending down. No chest pain but was in her bathtub x 3 days, unable to get out on her own ECG with some ST elevations anteriorly. Cardiac echo w/ hypokinesis of the mid to distal anterior wall and septum with akinetic anterior wall. Ejection fraction is estimated at 40%. Left heart cath on 07/15 with nonobstructive CAD- this is Takotsubo stress cardiomyopathy LVEDP elevated on cath and Cardiology recommends further diuresis--> gave IV lasix 20mg x 1 and reassess for further lasix tomorrow Cardiology consultation appreciated Ordered ASA 81mg daily, but pt declines as it causes GI side effects for her (2) Takotsubo cardiomyopathy: Plan: Cath with Mild to moderate nonobstructive coronary artery disease in major epicardial coronary arteries-25% proximal to mid LAD, 40-50% distal circumflex involving bifurcation with OM 2,Severe small branch vessel disease, and80% proximal D1 (<2 mm diameter) Continue GDMT for cardiomyopathy-change metoprolol tartrate to succinate equivalent dose Continue diuresis with IV lasix Medical management of small branch vessel disease-cannot tolerate ASA, resume Pradaxa tomorrow Add statin Consider adding Entresto-will d/w Cardiology (3) Rhabdomyolysis: Plan: CK is elevated on admission due to a combination of rhabdomyolysis and acute MO. Then decreased to 412 (4) NSVT (nonsustained ventricular tachycardia): Plan: This appears to be due to acute anterior wall injury. Cardio then thought was not VT and more atrial tach and abberrancy IV amiodarone now stopped Started on metoprolol None further-continue to monitor on tele Cardiology consultation and recommendations appreciated (5) Pneumonia: Plan: Right lower lobe infiltrate on chest x-ray is consistent with pneumonia No RFs for Pseudomonas--> de-escalate abx to ceftriaxone and doxycycline for total tx of 7 days f/u chest CT 3 months I have reviewed previous CT A/P and this same lesion I believe was present from several years prior (6) Chronic obstructive pulmonary disease: Plan: Stable. Combivent PRN (7) Fall: Plan: Unwitnessed fall in her bathtub. Possible from arrhythmia or from MO? Ordered PT/OT evals, may need rehab (8) Esophageal stricture: Plan: Has a reported h/o this requiring dilation With vomiting here of solid foods-change to minced and moist, slippery diet Order barium swallow for tomorrow (9) Hypertension: Plan: BPs stable continue metoprolol lasix, may add entresto (10) Pacemaker: Plan: placed for AV block functioning appropriately (11) Breast lump or mass: Plan: noted incidentally on CT abd/pel I cannot palpate it on exam here recommend outpt mammogram and US of right breast-can defer to PCP to order Discussed with patient Plan DVT proph-resume Pradaxa tomorrow after cath Dispo-continued stay on PCU Admission and Anticipated Discharge Date Admission Date: July 11, 2024 Subjective Pt reports feelin gbetter, not SOB. Is vomiting up solid foods but reports she usually eats food that goes down easily at home She has a h/o getting esophageal dilation No chest pain Tele with paced rhythm, rates 60-70s Physical Exam Constitutional: WD/WN, vitals as above Respiratory: normal respiratory effort, lungs clear to auscultation Cardiovascular: RRR, no murmur, no edema Gastrointestinal (Abdomen): normal bowel sounds, soft, nontender, no hepatosplenomegaly Musculoskeletal: right wrist with cath site dressing in place, no hematoma Results & Data Results & Data Vital Signs (Past 12 Hours) Vital Signs Temp Pulse Pulse Pulse Resp BP BP 07/15/24 15:31 36.7 C 73 17 103/67 07/15/24 15:00 07/15/24 13:42 67 14 07/15/24 12:00 36.6 C 72 16 07/15/24 11:50 63 12 108/64 07/15/24 11:35 67 12 117/69 07/15/24 10:25 66 18 121/76 07/15/24 07:50 36.7 C 70 16 07/15/24 07:17 70 14 07/15/24 07:00 73 BP Pulse Ox O2 Del Method O2 Del Method O2 Flow Rate FiO2 07/15/24 15:31 92 Room Air 07/15/24 15:00 Room Air 07/15/24 13:42 91 Room Air 21 07/15/24 12:00 121/72 95 Room Air 07/15/24 11:50 96 Room Air 07/15/24 11:35 95 Room Air 07/15/24 10:25 97 Room Air 07/15/24 07:50 108/68 94 Nasal Cannula 2 07/15/24 07:17 95 Nasal Cannula 2 07/15/24 07:00 Laboratory Results CBC< BMP reviewed PG Care Time/CCT Total # of Minutes Spent Total Time Spent with Patient: Total time spent is greater than 50% in coordination of care (as documented) at patient's floor/unit and/or counseling patient: Coding Level of Care Code 02164 SUB INP/OBS CARE 3/50MIN Diagnoses Acute anterior wall MO I21.09 Takotsubo cardiomyopathy I51.81 Rhabdomyolysis M62.82 NSVT (nonsustained ventricular tachycardia) I47.29 Pneumonia J18.9 Chronic obstructive pulmonary disease, unspecified COPD type J44.9 COPD type: unspecified COPD Fall W19.XXXA Esophageal stricture K22.2 Primary hypertension I10 Hypertension type: primary hypertension Pacemaker Z95.0 Breast lump or mass N63.0 (6) Chronic obstructive pulmonary disease COPD type: unspecified COPD Qualified Code(s): J44.9 - Chronic obstructive pulmonary disease, unspecified (9) Hypertension Hypertension type: primary hypertension Qualified Code(s): I10 - Essential (primary) hypertension
[2024-07-15] MEDS: LIDOCAINE 5% 1 PATCH TD SCH (19:24)
[2024-07-15] MEDS: METOPROLOL SUCC 50MG EXT REL TAB PO SCH (19:29)
[2024-07-16 08:56] LABS: Albumin Level 3.1 gm/dl (3.4-5.0); BUN Creatinine Ratio 12.7 (10-20); Calcium 8.3 mg/dl (8.6-10.3); Creatinine Clr Calc Pharmacy 61.7 ml/min; Magnesium 1.9 mg/dl (1.7-2.4); Phosphorus 3.6 mg/dl (2.5-4.9); Potassium 4.1 mmol/L (3.5-5.1)
[2024-07-16 09:15] LABS: Ferritin 61.4 ng/ml (8-388)
[2024-07-16 09:23] LABS: Folate (Folic Acid),Ser orPlas 8.21 ng/ml (>5.38)
[2024-07-16 09:29] LABS: Basophils # (auto) 0.03 K/uL (0.00-0.20); Basophils % (auto) 0.5 %; Eosinophils # (auto) 0.17 K/uL (0.00-0.50); Eosinophils % (auto) 2.6 %; Hematocrit (blood only) 37.5 % (37.0-47.0); Hemoglobin 11.5 g/dl (12.0-16.0); Immature Granulocytes # (auto) 0.04 K/uL (0.01-0.20); Immature Granulocytes % (auto) 0.6 %; Lymphocytes # (auto) 0.81 K/uL (1.20-3.40); Lymphocytes % (auto) 12.4 %; Mean Corpuscular Hemoglobin 27.9 pg (25.0-34.0); Mean Corpuscular Hgb Conc 30.7 g/dL (32.0-36.0); Mean Platelet Volume 11.3 fL (9.4-12.4); Monocytes # (auto) 0.76 K/uL (0.11-0.59); Monocytes % (auto) 11.6 %; Neutrophils # (auto) 4.74 K/uL (1.40-6.50); Neutrophils % (auto) 72.3 %; Platelet Count 159 K/uL (130-400); RDW Coefficient of Variation 15.5 % (11.5-14.5); RDW Standard Deviation 51.2 fL (36.4-46.3); Red Blood Count 4.12 M/uL (4.20-5.40); White Blood Count 6.55 K/ul (4.8-10.8)
[2024-07-16] MEDS: FUROSEMIDE INJ 20 MG/2 ML VIAL IV ONE (12:17)
[2024-07-16] MEDS: CALCIUM 600MG + VIT D 400 IU TAB PO SCH (12:18)
[2024-07-16] MEDS: CHOLECALCIFEROL 125 MCG (5,000 UNITS) TAB PO SCH (12:18)
[2024-07-16] MEDS: CYANOCOBALAMIN 1000 MCG/ML VIAL IM SCH (12:18)
[2024-07-16] MEDS: DABIGATRAN ETEXILATE 75 MG CAP PO ONE (12:19)
--- NOTE | 2024-07-16 13:41 | Fluoroscopy Report ---
FL barium swallow CLINICAL HISTORY: 79 years-old Female with dysphagia,vomiting. TECHNIQUE: Barium contrast and effervescent crystals were administered to the patient under fluorosco pic examination. Multiple images were obtained and submitted for review. FLUOROSCOPY TIME: 30 seconds FLUOROSCOPY IMAGES: 35 Ka,r: 14.0 mGy COMPARISON: Chest CT 07/11/2024. FINDINGS: During deglutition, contrast material flowed freely through the cervical esophagus. No filling defec t or mucosal abnormality is identified. No abnormal stricturing or mass effect is seen. The mid to distal esophagus is well coated and distended. No abnormal stricturing or mucosal abnormality is reva ntified. No significant reflux or hiatal hernia was demonstrated during the exam. The GE junction i s normal in appearance. Muscle including pacer. Mild esophageal dysmotility. A barium tablet was adm inistered which passed freely from the esophagus into the stomach. IMPRESSION: Mild esophageal dysmotility with otherwise unremarkable esophagram. ACT 112: Negative or not required by law. The above report was generated using voice recognition software. It may contain grammatical, syntax o r spelling errors. Electronically signed by: Elier Suh M.D. 07/16/2024 1:40 PM
--- NOTE | 2024-07-16 16:46 | Hospitalist Progress Note ---
Date of Service July 16, 2024 Assessment & Plan (1) Acute anterior wall [place]: Plan: Troponin greater than 2000 on admission and then trended down. No chest pain but was in her bathtub x 3 days, unable to get out on her own ECG with some ST elevations anteriorly. Cardiac echo w/ hypokinesis of the mid to distal anterior wall and septum with akinetic anterior wall. Ejection fraction is estimated at 40%. Left heart cath on 07/15 with nonobstructive CAD- this is Takotsubo stress cardiomyopathy LVEDP elevated on cath and Cardiology recommends further diuresis--> gave IV lasix 20mg x 1 on 07/15 with good response-will give another Lasix 20 Mg IV x 1 today- reassess for further lasix tomorrow Cardiology consultation appreciated Ordered ASA 81mg daily, but pt declines as it causes GI side effects for her- changed to Plavix 75 mg daily and added atorvastatin 40 mg daily (2) Takotsubo cardiomyopathy: Plan: Cath with Mild to moderate nonobstructive coronary artery disease in major epicardial coronary arteries-25% proximal to mid LAD, 40-50% distal circumflex involving bifurcation with OM 2,Severe small branch vessel disease, and80% proximal D1 (<2 mm diameter) Continue GDMT for cardiomyopathy-changed metoprolol tartrate to succinate equivalent dose Continue diuresis with IV lasix as above Medical management of small branch vessel disease-cannot tolerate ASA, resumed Pradaxa and started Plavix Added statin Consider adding Entresto-will d/w Cardiology-they will consider this and let me know on 07/17 Should have repeat echo in 1 month with cardiology as an outpatient Expect this to improve (3) NSVT (nonsustained ventricular tachycardia): Plan: This appears to be due to acute anterior wall injury. Cardio then thought was not VT and more atrial tach and abberrancy IV amiodarone now stopped and not having any further tachycardia Continue metoprolol None further-continue to monitor on tele Cardiology consultation and recommendations appreciated (4) Rhabdomyolysis: Plan: CK is elevated on admission due to a combination of rhabdomyolysis and acute [place]. Then decreased to 412 (5) Pneumonia: Plan: Right lower lobe infiltrate on chest x-ray is consistent with pneumonia although she has no symptoms of pneumonia but she was in the bathtub for 3 days so perhaps developed it then from atelectasis or aspiration No RFs for Pseudomonas--> de-escalate abx to ceftriaxone and doxycycline for total tx of 7 days f/u chest CT 3 months I have reviewed previous CT A/P and this same lesion I believe was present from several years prior (6) Fall: Plan: Unwitnessed fall in her bathtub. Possible from arrhythmia or from [place]? Ordered PT/OT evals, may need rehab-evaluation still pending (7) Hypertension: Plan: BPs stable continue metoprolol lasix, may add entresto tomorrow-defer to cardiology (8) Breast lump or mass: Plan: noted incidentally on CT abd/pel I cannot palpate it on exam here recommend outpt mammogram and US of right breast-can defer to PCP to order Discussed with patient (9) Vitamin B12 deficiency anemia: Plan: B12 level very low at 176 Added B12 1000 mcg IM daily x 3 doses then order po B12 Follow as outpt Fe levels also borderline low F/u with GI as outpt (10) Esophageal stricture: Plan: Has a reported h/o this requiring dilation With vomiting here of solid foods-change to minced and moist, slippery diet and tolerating well Barium swallow on 07/16 shows mild esophageal dysmotility-needs slippery diet No EGD indicated Plan Chronic medical problems: 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 Combivent PRN DVT proph-resumed Pradaxa Dispo-continued stay on PCU, await PT/OT consults to see if needs rehab Discussed care with multiple daughters at the bedside on 07/16 Admission and Anticipated Discharge Date Admission Date: July 11, 2024 Subjective Patient feeling hungry as she has not eaten since her barium swallow. Otherwise no complaints. She did get out of bed to the bathroom and back and feels very weak Telemetry with paced rhythm in the 60s and 70s Physical Exam Constitutional: WD/WN, vitals as above Respiratory: normal respiratory effort, lungs clear to auscultation Cardiovascular: RRR, no murmur, no edema Gastrointestinal (Abdomen): normal bowel sounds, soft, nontender, no hepatosplenomegaly Psychiatric: A+Ox3, euthymic affect Results & Data Results & Data Vital Signs (Past 12 Hours) Vital Signs Temp Pulse Pulse Pulse Resp BP BP 07/16/24 15:24 36.7 C 74 18 114/73 07/16/24 10:27 36.8 C 75 18 105/60 07/16/24 08:00 71 07/16/24 08:00 07/16/24 07:19 36.7 C 81 18 104/68 07/16/24 07:15 80 18 Pulse Ox O2 Del Method O2 Flow Rate 07/16/24 15:24 95 Nasal Cannula 2 07/16/24 10:27 93 Nasal Cannula 2 07/16/24 08:00 07/16/24 08:00 Nasal Cannula 2 07/16/24 07:19 95 Nasal Cannula 2 07/16/24 07:15 96 Nasal Cannula 2 Laboratory Results CBC, BMP, iron studies, B12, folate, blood cultures reviewed PG Care Time/CCT Total # of Minutes Spent Total Time Spent with Patient: Total time spent is greater than 50% in coordination of care (as documented) at patient's floor/unit and/or counseling patient: Coding Level of Care Code 19478 SUB INP/OBS CARE 2/35MIN Diagnoses Acute anterior wall DE I21.09 Takotsubo cardiomyopathy I51.81 NSVT (nonsustained ventricular tachycardia) I47.29 Rhabdomyolysis M62.82 Pneumonia J18.9 Fall W19.XXXA Primary hypertension I10 Hypertension type: primary hypertension Breast lump or mass N63.0 Vitamin B12 deficiency anemia D51.9 Esophageal stricture K22.2 (7) Hypertension Hypertension type: primary hypertension Qualified Code(s): I10 - Essential (primary) hypertension
[2024-07-17 08:07] LABS: BUN Creatinine Ratio 16.9 (10-20); Calcium 8.4 mg/dl (8.6-10.3); Creatinine Clr Calc Pharmacy 67.4 ml/min; Magnesium 1.8 mg/dl (1.7-2.4)
[2024-07-17] MEDS: ATORVASTATIN 40 MG TAB PO SCH (09:53)
[2024-07-17] MEDS: MECLIZINE HCL 25 MG TAB PO PRN (09:53)
[2024-07-17] MEDS: CLOPIDOGREL BISULFATE 75 MG TAB PO SCH (09:53)
[2024-07-17] MEDS: FUROSEMIDE INJ 20 MG/2 ML VIAL IV ONE (10:05)
[2024-07-17] MEDS: ALBUTEROL HFA 8 GM INHALER INH SCH (14:05)
[2024-07-17] MEDS: IPRATROPIUM BROMIDE HFA INHALER INH SCH (14:05)
--- NOTE | 2024-07-17 17:58 | Hospitalist Progress Note ---
Date of Service July 17, 2024 Assessment & Plan (1) Acute anterior wall [place]: Plan: Troponin greater than 2000 on admission and then trended down. No chest pain but was in her bathtub x 3 days, unable to get out on her own ECG with some ST elevations anteriorly. Cardiac echo w/ hypokinesis of the mid to distal anterior wall and septum with akinetic anterior wall. Ejection fraction is estimated at 40%. Left heart cath on 07/15 with nonobstructive CAD- this is Takotsubo stress cardiomyopathy LVEDP elevated on cath and Cardiology recommends further diuresis--> IV lasix 20mg daily since 07/15 with good response- reassess for further lasix tomorrow Cardiology consultation appreciated Ordered ASA 81mg daily, but pt declines as it causes GI side effects for her- changed to Plavix 75 mg daily and added atorvastatin 40 mg daily (2) Takotsubo cardiomyopathy: Plan: Cath with Mild to moderate nonobstructive coronary artery disease in major epicardial coronary arteries-25% proximal to mid LAD, 40-50% distal circumflex involving bifurcation with OM 2,Severe small branch vessel disease, and80% proximal D1 (<2 mm diameter) Continue GDMT for cardiomyopathy-changed metoprolol tartrate to succinate equivalent dose Continue diuresis with IV lasix as above Medical management of small branch vessel disease-cannot tolerate ASA, resumed Pradaxa and started Plavix Added statin Consider adding Entresto-will d/w Cardiology-they will consider this and let me know Should have repeat echo in 1 month with cardiology as an outpatient Follow BMP, magnesium with diuresis Expect this to improve (3) NSVT (nonsustained ventricular tachycardia): Plan: This appears to be due to acute anterior wall injury. Cardio then thought was not VT and more atrial tach and aberrancy IV amiodarone now stopped and not having any further tachycardia for many days Continue metoprolol None further-okay to downgrade off tele Cardiology consultation and recommendations appreciated (4) Rhabdomyolysis: Plan: CK is elevated on admission due to a combination of rhabdomyolysis and acute [place]. Then decreased to 412 (5) Pneumonia: Plan: Right lower lobe infiltrate on chest x-ray is consistent with pneumonia although she has no symptoms of pneumonia but she was in the bathtub for 3 days so perhaps developed it then from atelectasis or aspiration No RFs for Pseudomonas--> de-escalate abx to ceftriaxone and doxycycline for total tx of 7 days f/u chest CT 3 months I have reviewed previous CT A/P and this same lesion I believe was present from several years prior (6) Fall: Plan: Unwitnessed fall in her bathtub. Possible from arrhythmia or from [place]? Ordered PT/OT evals, needs rehab-referrals made (7) Hypertension: Plan: BPs stable continue metoprolol lasix, may add entresto -defer to cardiology (8) Breast lump or mass: Plan: noted incidentally on CT abd/pel I cannot palpate it on exam here recommend outpt mammogram and US of right breast-can defer to PCP to order Discussed with patient (9) Vitamin B12 deficiency anemia: Plan: B12 level very low at 176 Added B12 1000 mcg IM daily x 3 doses then order po B12 Follow as outpt Fe levels also borderline low F/u with GI as outpt (10) Esophageal stricture: Plan: Has a reported h/o this requiring dilation With vomiting here of solid foods-change to minced and moist, slippery diet and tolerating well Barium swallow on 07/16 shows mild esophageal dysmotility-needs slippery diet No EGD indicated Plan Chronic medical problems: 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 Combivent PRN DVT proph-resumed Pradaxa Dispo-continued stay but downgrade off telemetry to medical/surgical unit, awaiting rehab placement. Remove Mercedes catheter in the morning on 07/18 Discussed care with multiple daughters at the bedside on 07/16 Admission and Anticipated Discharge Date Admission Date: July 11, 2024 Subjective Patient denies problems. Coughing up some sputum. Feels better. Worked with PT today Telemetry with normal sinus rhythm and paced rhythm with rates in the 60s to 70s Physical Exam Constitutional: WD/WN, vitals as above Respiratory: normal respiratory effort, lungs clear to auscultation Cardiovascular: RRR, no murmur, no edema Gastrointestinal (Abdomen): normal bowel sounds, soft, nontender, no hepatosplenomegaly Psychiatric: A+Ox3, euthymic affect Results & Data Results & Data Vital Signs (Past 12 Hours) Vital Signs Temp Pulse Pulse Pulse Resp BP BP 07/17/24 14:31 07/17/24 14:05 71 16 07/17/24 10:37 36.6 C 67 18 114/72 07/17/24 07:35 07/17/24 07:22 36.7 C 73 19 103/66 07/17/24 07:00 63 07/17/24 06:56 78 16 Pulse Ox Pulse Ox O2 Del Method O2 Flow Rate O2 Flow Rate 07/17/24 14:31 91 2 07/17/24 14:05 95 Nasal Cannula 2 07/17/24 10:37 94 Nasal Cannula 2 07/17/24 07:35 Nasal Cannula 2 07/17/24 07:22 92 Nasal Cannula 2 07/17/24 07:00 07/17/24 06:56 95 Nasal Cannula 2 Laboratory Results BMP, magnesium reviewed PG Care Time/CCT Total # of Minutes Spent Total Time Spent with Patient: Total time spent is greater than 50% in coordination of care (as documented) at patient's floor/unit and/or counseling patient: Coding Level of Care Code 63454 SUB INP/OBS CARE 2/35MIN Diagnoses Acute anterior wall [place] I21.09 Takotsubo cardiomyopathy I51.81 NSVT (nonsustained ventricular tachycardia) I47.29 Rhabdomyolysis M62.82 Pneumonia J18.9 Fall W19.XXXA Primary hypertension I10 Hypertension type: primary hypertension Breast lump or mass N63.0 Vitamin B12 deficiency anemia D51.9 Esophageal stricture K22.2 (7) Hypertension Hypertension type: primary hypertension Qualified Code(s): I10 - Essential (primary) hypertension
[2024-07-17] MEDS: FAMOTIDINE 10 MG TABLET PO ONE (23:28)
[2024-07-18] MEDS: FUROSEMIDE 20 MG TAB PO SCH (11:19)
--- NOTE | 2024-07-18 13:33 | XCELERA ---
[id number] \\[email or web address]\[id number]
--- NOTE | 2024-07-18 16:46 | Hospitalist Progress Note ---
Date of Service July 18, 2024 Assessment & Plan (1) Acute anterior wall [place]: Plan: Troponin greater than 2000 on admission and then trended down. No chest pain but was in her bathtub x 3 days, unable to get out on her own ECG with some ST elevations anteriorly. Cardiac echo w/ hypokinesis of the mid to distal anterior wall and septum with akinetic anterior wall. Ejection fraction is estimated at 40%. Left heart cath on 07/15 with nonobstructive CAD- this is Takotsubo stress cardiomyopathy LVEDP elevated on cath and Cardiology recommends further diuresis--> IV lasix 20mg daily since 07/15 with good response-now start lasix 20mg po daily on 07/18 Cardiology consultation appreciated Ordered ASA 81mg daily, but pt declines as it causes GI side effects for her- changed to Plavix 75 mg daily and added atorvastatin 40 mg daily (2) Takotsubo cardiomyopathy: Plan: Cath with Mild to moderate nonobstructive coronary artery disease in major epicardial coronary arteries-25% proximal to mid LAD, 40-50% distal circumflex involving bifurcation with OM 2,Severe small branch vessel disease, and80% proximal D1 (<2 mm diameter) Repeat limited ECHO 07/18 improved now with EF 50% and only small area of hypokinesis at apex Continue GDMT for cardiomyopathy-changed metoprolol tartrate to succinate equivalent dose Received diuresis with IV lasix as above-now start po lasix Medical management of small branch vessel disease-cannot tolerate ASA, resumed Pradaxa and started Plavix, added statin No need to add Entresto now that EF has improved as per my d/w Cardiology Follow BMP, magnesium with diuresis in the AM (3) NSVT (nonsustained ventricular tachycardia): Plan: This appears to be due to acute anterior wall injury. Cardio then thought was not VT and more atrial tach and aberrancy IV amiodarone now stopped and not having any further tachycardia for many days Continue metoprolol None further-have since been downgraded off tele Cardiology consultation and recommendations appreciated (4) Rhabdomyolysis: Plan: CK is elevated on admission due to a combination of rhabdomyolysis and acute [place]. Then decreased to 412 (5) Pneumonia: Plan: Right lower lobe infiltrate on chest x-ray is consistent with pneumonia although she has no symptoms of pneumonia but she was in the bathtub for 3 days so perhaps developed it then from atelectasis or aspiration No RFs for Pseudomonas--> de-escalate abx to ceftriaxone and doxycycline for total tx of 7 days-last day of tx 07/19 f/u chest CT 3 months I have reviewed previous CT A/P and this same lesion I believe was present from several years prior (6) Fall: Plan: Unwitnessed fall in her bathtub. Possible from arrhythmia or from [place]? Ordered PT/OT evals, needs rehab-referrals made (7) Hypertension: Plan: BPs stable continue metoprolol,lasix (8) Breast lump or mass: Plan: noted incidentally on CT abd/pel I cannot palpate it on exam here recommend outpt mammogram and US of right breast-can defer to PCP to order Discussed with patient (9) Vitamin B12 deficiency anemia: Plan: B12 level very low at 176 Added B12 1000 mcg IM daily x 3 doses then order po B12 for tomorrow Follow as outpt Fe levels also borderline low F/u with GI as outpt (10) Esophageal stricture: Plan: Has a reported h/o this requiring dilation With vomiting here of solid foods-change to minced and moist, slippery diet and tolerating well Barium swallow on 07/16 shows mild esophageal dysmotility-needs slippery diet No EGD indicated Plan Chronic medical problems: 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 Combivent PRN DVT proph-resumed Pradaxa Dispo-medically stable for discharge but awaiting placement, remains on medical/surgical unit Discussed care with daughter at the bedside on 07/18 Admission and Anticipated Discharge Date Admission Date: July 11, 2024 Subjective Had one small amount of vomiting today after eating lunch but otherwise feels well, no SOB. I discussed her care with the Insurance Counselor Physical Exam Constitutional: WD/WN, vitals as above Respiratory: normal respiratory effort, lungs clear to auscultation Cardiovascular: RRR, no murmur, no edema Gastrointestinal (Abdomen): normal bowel sounds, soft, nontender, no hepatosplenomegaly Psychiatric: A+Ox3, euthymic affect Results & Data Results & Data Vital Signs (Past 12 Hours) Vital Signs Temp Pulse Pulse Resp BP Pulse Ox O2 Del Method 07/18/24 13:24 17 96 Room Air 07/18/24 07:37 36.7 C 75 16 114/74 92 Room Air 07/18/24 07:13 77 16 95 Room Air Diagnostic Findings limited ECHO reviewed PG Care Time/CCT Total # of Minutes Spent Total Time Spent with Patient: Total time spent is greater than 50% in coordination of care (as documented) at patient's floor/unit and/or counseling patient: Coding Level of Care Code 80632 SUB INP/OBS CARE 2/35MIN Diagnoses Acute anterior wall [place] I21.09 Takotsubo cardiomyopathy I51.81 NSVT (nonsustained ventricular tachycardia) I47.29 Rhabdomyolysis M62.82 Pneumonia J18.9 Fall W19.XXXA Primary hypertension I10 Hypertension type: primary hypertension Breast lump or mass N63.0 Vitamin B12 deficiency anemia D51.9 Esophageal stricture K22.2 (7) Hypertension Hypertension type: primary hypertension Qualified Code(s): I10 - Essential (primary) hypertension
[2024-07-18] MEDS: FAMOTIDINE 10 MG TABLET PO ONE (22:40)
[2024-07-19 06:38] LABS: Basophils # (auto) 0.04 K/uL (0.00-0.20); Basophils % (auto) 0.4 %; Eosinophils # (auto) 0.24 K/uL (0.00-0.50); Eosinophils % (auto) 2.7 %; Hematocrit (blood only) 41.2 % (37.0-47.0); Hemoglobin 12.9 g/dl (12.0-16.0); Immature Granulocytes # (auto) 0.05 K/uL (0.01-0.20); Immature Granulocytes % (auto) 0.6 %; Lymphocytes # (auto) 0.88 K/uL (1.20-3.40); Lymphocytes % (auto) 9.7 %; Mean Corpuscular Hemoglobin 27.9 pg (25.0-34.0); Mean Corpuscular Hgb Conc 31.3 g/dL (32.0-36.0); Mean Corpuscular Volume 89.2 fL (80.0-100.0); Mean Platelet Volume 10.8 fL (9.4-12.4); Monocytes # (auto) 0.95 K/uL (0.11-0.59); Monocytes % (auto) 10.5 %; Neutrophils # (auto) 6.87 K/uL (1.40-6.50); Neutrophils % (auto) 76.1 %; Platelet Count 227 K/uL (130-400); RDW Coefficient of Variation 15.1 % (11.5-14.5); RDW Standard Deviation 49.1 fL (36.4-46.3); Red Blood Count 4.62 M/uL (4.20-5.40); White Blood Count 9.03 K/ul (4.8-10.8)
[2024-07-19 07:57] VITALS: TEMP 98.2
[2024-07-19 09:18] LABS: Calcium 9.3 mg/dl (8.6-10.3); Creatinine Clr Calc Pharmacy 62.6 ml/min; Magnesium 1.6 mg/dl (1.7-2.4); Potassium 3.7 mmol/L (3.5-5.1)
[2024-07-19 11:56] VITALS: BP 104/64; O2SAT 93
--- NOTE | 2024-07-19 12:37 | Discharge Summary ---
Discharge Summary Date of Service July 19, 2024 Principal Dx & Hospital Course #1 = Principal Diagnosis (1) Acute anterior wall IN: Troponin greater than 2000 on admission and then trended down. No chest pain but was in her bathtub x 3 days, unable to get out on her own ECG with some ST elevations anteriorly. Cardiac echo w/ hypokinesis of the mid to distal anterior wall and septum with akinetic anterior wall. Ejection fraction is estimated at 40%. Left heart cath on 07/15 with nonobstructive CAD- this is Takotsubo stress cardiomyopathy LVEDP elevated on cath and Cardiology recommends further diuresis--> IV lasix 20mg daily since 07/15 with good response-now start lasix 20mg po daily on 07/18 Cardiology consultation appreciated Ordered ASA 81mg daily, but pt declines as it causes GI side effects for her- changed to Plavix 75 mg daily and added atorvastatin 40 mg daily (2) Takotsubo cardiomyopathy: Cath with Mild to moderate nonobstructive coronary artery disease in major epicardial coronary arteries-25% proximal to mid LAD, 40-50% distal circumflex involving bifurcation with OM 2,Severe small branch vessel disease, and80% proximal D1 (<2 mm diameter) Repeat limited ECHO 07/18 improved now with EF 50% and only small area of hypokinesis at apex Continue GDMT for cardiomyopathy-started metoprolol succinate 50mg daily Received diuresis with IV lasix as above-now on po lasix Add magnesium 400mg po bid for hypomagnesemia related to diuresis Medical management of small branch vessel disease-cannot tolerate ASA-continue home Pradaxa and started Plavix, added statin No need to add Entresto now that EF has improved as per my d/w Cardiology Follow BMP, magnesium at rehab in 1 week F/u with Cardiology in office in 2 weeks (3) NSVT (nonsustained ventricular tachycardia): This appears to be due to acute anterior wall injury. Cardio then thought was not VT and more atrial tach and aberrancy IV amiodarone initially given then stopped and not having any further tac hycardia for many days Continue metoprolol Cardiology consultation and recommendations appreciated (4) Rhabdomyolysis: CK is elevated on admission due to a combination of rhabdomyolysis and acute IN. Then decreased to 412 (5) Pneumonia: Right lower lobe infiltrate on chest x-ray is consistent with pneumonia although she has no symptoms of pneumonia but she was in the bathtub for 3 days so perhaps developed it then from atelectasis or aspiration Treated with ceftriaxone and doxycycline for total tx of 7 days-last day of tx 07/19 evening f/u chest CT 3 months to ensure resolution of infiltrate/opacity in LLL--I have reviewed previous CT A/P and this same lesion I believe was present from several years prior (6) Fall: Unwitnessed fall in her bathtub. Possible from arrhythmia or from IN? Ordered PT/OT evals, needs rehab With left shoulder and neck pain-continue tylenol prn, lidocaine patch (7) Hypertension: BPs stable continue metoprolol,lasix (8) Breast lump or mass: noted incidentally on CT abd/pel I cannot palpate it on exam here recommend outpt mammogram and US of right breast-can defer to PCP to order Discussed with patient and daughter in law (9) Vitamin B12 deficiency anemia: B12 level very low at 176 Added B12 1000 mcg IM daily x 3 doses then order po B12 1000 mcg po daily Follow as outpt Fe levels also borderline low F/u with GI as outpt (10) Esophageal stricture: Has a reported h/o this requiring dilation With vomiting here of solid foods-change to minced and moist, slippery diet and tolerating well Barium swallow on 07/16 shows mild esophageal dysmotility-needs slippery diet No EGD indicated for this at this time Plan Chronic medical problems: 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 Combivent PRN DVT proph- Pradaxa Dispo-medically stable for discharge to [facility] Discussed care with [id number] at the bedside on 07/18 and 07/19 Notes For Next Care Provider Check BMP, magnesium in [address] Chest in 2 months Needs right breast mammogram and ultrasound for right breast nodule seen on CT S Medication Changes From Visit see list Admission HPI Per Admitting Provider Nadiya Villegas is a 79 year old female who presents to the ER after being found in the bathtub around 10am by her daughter. She reports getting up Monday morning and crawling into the bathtub around 4:30am and unable to get back out. Her family suspect she fell into the bathtub with the way she was found. She has not had anything to eat or drink. She screamed for help but lives alone and was only found this morning. She denies any current pain or injuries at this time. She was noted to have an elevated troponin in the ER but denies any chest pain or shortness of breath. Discharge Exam Constitutional WD/WN, vitals as above Respiratory normal respiratory effort, lungs clear to auscultation Cardiovascular RRR, no murmur, no edema Gastrointestinal (Abdomen) normal bowel sounds, soft, nontender, no hepatosplenomegaly Psychiatric A+Ox3, euthymic affect Discharge Plan Discharge Items Patient Disposition: Transfer [facility] Living Fac Reason For Visit: RHABDOMYLOLSIS, FOUND IN BATH TUB Discharge Diagnosis: Fall with shoulder,neck contusion Rhabdomyolysis Stress-induced cardiomyopathy Pneumonia [id number] Hypomagnesemia Condition on Discharge: Good Activity: As commented below Lifting: Gradually increase as tolerated Bathing: No limitations Exercise/Sports: Gradually increase as tolerated Non-emergency contact: Primary Care Provider and Telephone Station Installer Call non-emergency contact if: you have any medication questions, your symptoms worsen and your pain is not controlled Follow-up/Referrals: Hannah Marshall CRNP [Primary Care Provider] - Eric Jaramillo MD [Physician] - (Follow up within 2 weeks) Diet: Heart Healthy and Low Sodium (2gm) Fluids: 1800ml (7 cups) Addtl Attending Provider Instructions: You had a stress-induced cardiomyopathy and were started on medications for heart failure and coronary artery disease. Please follow up with the Telephone Station Installer within 2-3 weeks. Finish out 1 more dose of doxycycline for your pneumonia this evening. You will need a repeat chest CT in 2 months to reassess the left lower lung opacity to see if resolved vs chronic finding. You were also found to have a right breast nodule on CT scan which needs outpatient follow up with breast ultrasound and mammogram as we discussed. Pending Studies at Discharge: No Stand-Alone Forms: My [facility] rollApp Skilled Items Patient informed of condition?: Yes DNR: Yes Discharge Level of Care: Skilled Communicable Disease: No Discharge Prognosis: Improving Lines: None Urinary Catheter: No Medications and DC Order Prescriptions: New atorvastatin 40 mg Tablet 40 mg PO QAM Qty: 30 0RF acetaminophen 325 mg Tablet 650 mg PO Q6H PRN (Reason: pain ) Qty: 60 0RF doxycycline hyclate 100 mg Capsule 100 mg PO Q12H Qty: 1 0RF metoprolol succinate 50 mg Tablet Extended Release 24 Hr 50 mg PO HS Qty: 30 0RF clopidogrel 75 mg Tablet 75 mg PO QAM Qty: 30 0RF magnesium oxide 400 mg (241.3 mg magnesium) Tablet 400 mg PO BID Qty: 60 0RF furosemide 20 mg Tablet 20 mg PO QAM Qty: 30 0RF lidocaine 5 % Adhesive Patch,Medicated 1 patch transdermal DAILY@2000 Qty: 15 0RF nystatin [Nystop] 100,000 unit/gram Powder 1 applic EXT PRN PRN (Reason: rash in skin folds) Qty: 15 0RF cyanocobalamin (vitamin B-12) 1,000 mcg capsule 1,000 mcg PO DAILY Qty: 30 0RF Continued cholecalciferol (vitamin D3) 125 mcg (5,000 unit) capsule 5,000 units PO DAILY Qty: 90 0RF Rx Instructions: Unable to verify OTC meds at this date/time. Calcium 600 + Minerals 600 mg calcium- 200 unit tablet 1 tab PO DAILY Rx Instructions: Unable to verify OTC meds at this date/time. clobetasol 0.05 % ointment 1 applic topical BID PRN (Reason: psoriasis) Qty: 1 1RF docusate sodium 100 mg capsule 100 mg PO UD Patient Comments: 100 mg PO Take 1 tablet in the AM and 2 tablets in PM; Rx Instructions: Unable to verify OTC meds at this date/time. Original Directions: 100mg by mouth in the morning and 200mg by mouth in the evening carboxymethylcellulose sodium [Refresh Plus] 0.5 % dropperette 1 drp ophthalmic (eye) QID Rx Instructions: Unable to verify OTC meds at this date/time. Ocuvite Eye Health 50 mg-15 unit- 4.5 mg-2.5 mg Tablet,Chewable 1 tab PO QAM Rx Instructions: Unable to verify OTC meds at this date/time. famotidine 20 mg tablet 20 mg PO DAILY meclizine 25 mg tablet 25 mg PO TID PRN (Reason: Vertigo) fluticasone propionate 50 mcg/actuation [place] [facility],Suspension 1 spray INTRANASAL Q OTHER DAY Rx Instructions: Unable to verify OTC meds at this date/time. dabigatran etexilate 150 mg capsule 150 mg PO BID Changed Combivent Respimat 20-100 mcg/actuation mist 1 puff INHALATION QID MDD 6 puffs/24hrs PRN (Reason: cough or wheeze) Qty: 0 0RF Discharge Orders: Discharge Order (Routine); Ordered 07/19/24 Ordered By: Yancy Lopez Admission Data Admit Date/Time: 07/11/24 13:48 Attending Provider: Yancy Lopez Admit Provider: Brenton Lindsey Primary Care Provider: Hannah Marshall Other Providers: Brenton Lindsey; Eric Jaramillo Hospital Stay Data Consultations 07/11/24 13:41 ED Decision to Admit Stat 07/11/24 13:43 Consult Cardiology Routine Procedures Performed Operation Date: 07/15/24 10:30 Actual Procedures p Cineradiography w/Routine Exam - Ron Mosher MD p Cath, Left with Cors and Vent - Ron Mosher MD Diagnostic Imagining Performed 07/11/24 11:29 CT head/brain wo con Stat 07/11/24 11:31 CT abd pelvis IV con only Stat CT cervical spine wo con Stat CT chest diagnostic w con Stat 07/15/24 10:06 CL Cath Imgs for PACS use only Routine 07/16/24 08:00 FL barium swallow Routine ECHO Limited EHCO Pending Results Patient Have Any Pending Studies at Discharge: No Discharge Instructions Given to Patient (Per Discharging Provider) You had a stress-induced cardiomyopathy and were started on medications for heart failure and coronary artery disease. Please follow up with the Telephone Station Installer within 2-3 weeks. Finish out 1 more dose of doxycycline for your pneumonia this evening. You will need a repeat chest CT in 2 months to reassess the left lower lung opacity to see if resolved vs chronic finding. You were also found to have a right breast nodule on CT scan which needs outpatient follow up with breast ultrasound and mammogram as we discussed. Total Time Total Time Spent Total Time Spent (In Minutes): 35 min Total Time Includes: Examination of the Patient, Discharge Planning and Medication Reconciliation Coding Level of Care Code 27601 INP/OBS DISCH >30 MIN Diagnoses Acute anterior wall IN I21.09 Takotsubo cardiomyopathy I51.81 NSVT (nonsustained ventricular tachycardia) I47.29 Rhabdomyolysis M62.82 Pneumonia J18.9 Fall W19.XXXA Primary hypertension I10 Hypertension type: primary hypertension Breast lump or mass N63.0 Vitamin B12 deficiency anemia D51.9 Esophageal stricture K22.2
[2024-07-19] MEDS: MAGNESIUM SULFATE / D5W 1 GM/100 ML BAG IV ONE (12:53)
[2024-07-19 12:55] VITALS: PULSE 85; RESP 16
[2024-07-19] MEDS: MAGNESIUM OXIDE 400 MG TAB PO SCH (13:05)
[2024-07-19] MEDS ORDERED: DOXYCYCLINE HYCLATE 100 MG CAP PO SCH (18:00)
== END 2024-07-19 13:16 | DRG 280 ==
LOC: ED 11:12 → 2S 13:48 → SUATTDRO 13:48 → 2S 14:26 → 3W 07-18 18:54
DX: Z79.899 Other long term (current) drug therapy; Z66 Do not resuscitate; J18.9 Pneumonia, unspecified organism; N63.0 Unspecified lump in unspecified breast; Z68.27 Body mass index [BMI] 27.0-27.9, adult; I21.09 ST elevation (STEMI) myocardial infarction involving other coronary artery of anterior wall; I10 Essential (primary) hypertension; K21.00 Gastro-esophageal reflux disease with esophagitis, without bleeding; K22.2 Esophageal obstruction; R62.7 Adult failure to thrive; Z79.01 Long term (current) use of anticoagulants; I25.10 Atherosclerotic heart disease of native coronary artery without angina pectoris; E86.1 Hypovolemia; I44.30 Unspecified atrioventricular block; Z91.048 Other nonmedicinal substance allergy status; M81.0 Age-related osteoporosis without current pathological fracture; Z95.810 Presence of automatic (implantable) cardiac defibrillator; F17.210 Nicotine dependence, cigarettes, uncomplicated; M62.82 Rhabdomyolysis; I51.81 Takotsubo syndrome; Z88.8 Allergy status to other drugs, medicaments and biological substances; J96.01 Acute respiratory failure with hypoxia; J44.0 Chronic obstructive pulmonary disease with (acute) lower respiratory infection

== ENCOUNTER 2024-07-29 14:53 | Inpatient (IN) ==
--- NOTE | 2024-07-29 16:17 | XRay Report ---
INDICATION: Cough. TECHNIQUE: Frontal radiograph of the chest. COMPARISON: Radiograph from 07/15/2024. FINDINGS: Cardiomegaly. Pulmonary vasculature appears within normal limits. Small left pleural effusion with underlying atelectasis/airspace disease, somewhat improved from prior. No pneumothorax. No acute fracture. Left-sided pacemaker again noted. No acute fracture. IMPRESSION:Small left pleural effusion with underlying atelectasis/airspace disease, somewhat improved from prior. Electronically signed by Seamus Montanez 07-29-2024 4:17 PM
[2024-07-29 16:33] LABS: Basophils # (auto) 0.05 K/uL (0.00-0.20); Eosinophils # (auto) 0.02 K/uL (0.00-0.50); Eosinophils % (auto) 0.4 %; Hematocrit (blood only) 40.5 % (37.0-47.0); Hemoglobin 12.5 g/dl (12.0-16.0); Immature Granulocytes # (auto) 0.03 K/uL (0.01-0.20); Immature Granulocytes % (auto) 0.6 %; Lymphocytes # (auto) 0.27 K/uL (1.20-3.40); Lymphocytes % (auto) 5.5 %; Mean Corpuscular Hemoglobin 28.3 pg (25.0-34.0); Mean Corpuscular Hgb Conc 30.9 g/dL (32.0-36.0); Mean Corpuscular Volume 91.8 fL (80.0-100.0); Mean Platelet Volume 10.8 fL (9.4-12.4); Monocytes # (auto) 0.72 K/uL (0.11-0.59); Monocytes % (auto) 14.5 %; Neutrophils # (auto) 3.86 K/uL (1.40-6.50); Platelet Count 249 K/uL (130-400); RDW Standard Deviation 50.6 fL (36.4-46.3); Red Blood Count 4.41 M/uL (4.20-5.40); White Blood Count 4.95 K/ul (4.8-10.8)
[2024-07-29 16:37] LABS: iSTAT Hemoglobin 14.3 g/dl (12.0-16.0); iSTAT Ionized Calcium 1.1 mmol/l (1.12-1.32); iSTAT Potassium 4.4 mmol/L (3.3-5.0)
[2024-07-29 16:37] LABS: Albumin Level 3.9 gm/dl (3.4-5.0); Bilirubin Direct 0.1 mg/dl (0-0.2); Bilirubin,Total 0.5 mg/dl (0.2-1.0); Calcium 9.1 mg/dl (8.6-10.3); Magnesium 2.3 mg/dl (1.7-2.4); Potassium 4.5 mmol/L (3.5-5.1)
[2024-07-29 16:43] LABS: Troponin I High Sensitivity 9.4 pg/ml (0-14)
[2024-07-29] MEDS: OPTIRAY 320 125ml IV ONE (16:55)
[2024-07-29 16:59] LABS: INR 1.1 (0.9-1.1); Partial Thromboplastin Ratio 1.3; Partial Thromboplastin Time 35 Seconds (21-31); Prothrombin Time 11.4 Seconds (9.0-12.0)
--- NOTE | 2024-07-29 17:19 | CT Scan Report ---
INDICATION: Altered mental status. COMPARISON: CT brain from 07/11/2024. TECHNIQUE: Axial CT images of the head were obtained without IV contrast. Coronal and sagittal reformations were reviewed. FINDINGS: Orantes-white differentiation is relatively preserved. No mass, mass effect or midline shift. Mild chronic ischemic white matter changes and mild cortical atrophy. Basal ganglia calcifications. No evidence of acute large territorial infarction or acute intracranial hemorrhage. Ventricles appear normal in size. Basal cisterns are patent. No depressed calvarial fracture. IMPRESSION: No acute intracranial process. Electronically signed by Seamus Montanez 07-29-2024 5:18 PM
--- NOTE | 2024-07-29 17:27 | CT Scan Report ---
INDICATION: Difficulty breathing. COMPARISON: CT from 07/11/2024. TECHNIQUE: Axial CT images of the chest, abdomen and pelvis were obtained following IV contrast administration. PE protocol the chest. Coronal and sagittal reformations were reviewed. Oral contrast was administered. FINDINGS: Chest: The thoracic aorta appears normal in caliber. Negative for pulmonary embolism. The heart is mildly enlarged. No pericardial or pleural effusion. No pneumothorax. Mildly prominent, nonspecific mediastinal lymph nodes. Left-sided pacemaker again noted. Subsegmental atelectasis/airspace disease in the right middle lobe and bilateral lower lobes. Subpleural 2 mm nodule/scarring in the right upper lobe again noted. No acute osseous abnormality evident. Degenerative changes in the spine. Abdomen and pelvis: The gallbladder is surgically absent. The liver, spleen, pancreas and adrenal glands appear unremarkable. No hydronephrosis. No evidence of bowel obstruction/colitis/appendicitis. No free air. No drainable fluid collection. Upper abdominal aortic ectasia, 2.7 cm, unchanged. Negative for aneurysm or dissection. The urinary bladder appears unremarkable. Acute appearing L3 superior endplate compression fracture with approximately 10-15% height loss. Degenerative changes in the hips and spine. Right femoral hardware noted IMPRESSION: 1. Negative for pulmonary embolism. 2. Subsegmental atelectasis/airspace disease in the right middle lobe and bilateral lower lobes. 3. Acute appearing L3 superior endplate compression fracture with approximately 10-15% height loss. Electronically signed by Seamus Montanez 07-29-2024 5:26 PM
[2024-07-29 17:30] LABS: Base Excess VBG 3.9 mEq/L; HCO3 VBG 30 mmol/L; Oxygen Saturation VBG < 60.0 %; PCO2 VBG 51 mmHg (38-50); PO2 VBG 27 mmHg; pH VBG 7.38 (7.36-7.41)
[2024-07-29 17:34] LABS: Adenovirus PCR Not Detected (NotDetected); Bordetella parapertussis PCR Not Detected (NotDetected); Bordetella pertussis PCR Not Detected (NotDetected); Chlamydia pneumoniae PCR Not Detected (NotDetected); Coronavirus 229E PCR Not Detected (NotDetected); Coronavirus CoV-2 (COVID19)PCR DETECTED (NotDetected); Coronavirus HKU1 PCR Not Detected (NotDetected); Coronavirus NL63 PCR Not Detected (NotDetected); Coronavirus OC43PCR Not Detected (NotDetected); Human Metapneumovirus PCR Not Detected (NotDetected); Influenza A PCR Not Detected (NotDetected); Influenza B PCR Not Detected (NotDetected); Mycoplasma pneumoniae PCR Not Detected (NotDetected); Parainfluenza Virus 1 PCR Not Detected (NotDetected); Parainfluenza Virus 2 PCR Not Detected (NotDetected); Parainfluenza Virus 3 PCR Not Detected (NotDetected); Parainfluenza Virus 4 PCR Not Detected (NotDetected); Respiratory Syncytial VirusPCR Not Detected (NotDetected); Rhinovirus/Enterovirus PCR Not Detected (NotDetected)
--- NOTE | 2024-07-29 18:10 | History & Physical Report ---
Date of Service July 29, 2024 Assessment & Plan (1) COVID: Plan: COVID 19 diagnosed on admission Symptomatic with confusion, hypoxia, shortness of breath x1 day - CXR showing improved small left pleural effusion from previous admission - CTA showing subsegmental atelectasis/airspace disease in RML and bilateral LL - afebrile, VSS - no leukopenia or leukocytosis - requiring 5L oxygen via nasal cannula - ED course: 6 mg dexamethasone IV - incentive spirometry Q1H - remdesivir 200 mg IV on admission, continue with 100 mg daily x 5 days - continue Decadron 6mg IV daily (2) Acute respiratory failure due to COVID-19: Plan: 89% on RA -> 5L NC patient uses 2 L nasal cannula at baseline - no leukocytosis, no left shift, afebrile, VSS - BNP 327 - procal negative - do not suspect secondary bacterial PNA as imaging improved from recent admission, completed course of antibiotics, procalcitonin negative, no signs of infection at this time - defer abx - blood cultures pending - wean O2 as tolerated to baseline 2L -Continue home Lasix (3) Altered mental status: Plan: Acute metabolic encephalopathy suspect 2/2 to COVID infection and hypoxemia - head CT negative - UA negative - fall and aspiration precautions (4) Compression fracture of L3 vertebra: Plan: not noted during imaging during previous admission Patient does not remember any falls, although confusion As per patient's daughter has been ambulating on her own at [facility], daughter was not aware of any falls - A/P CT noted acute appearing L3 superior endplate compression fracture with approximately 10 to 15% height loss - patient denies back pain however reports diffuse abdominal pain; possible radiation - Tylenol prn, Toradol prn, and oxy prn for pain unrelieved by #1 and 2 (5) Abdominal pain: Plan: suspect 2/2 to L3 fx - CT AP negative for acute abd changes, UA without infection -Difficult historian at the time of admission, but could be gas pains or constipation? - hx of esophageal stricture - continue minced and moist diet - Tylenol and Zofran prn (6) Takotsubo cardiomyopathy: Plan: Dx on recent admission (d/c 07/19) Cath 07/15 showed with Mild to moderate nonobstructive coronary artery disease in major epicardial coronary arteries-25% proximal to mid LAD, 40-50% distal circumflex involving bifurcation with OM 2,Severe small branch vessel disease, and80% proximal D1 (<2 mm diameter) Echo 07/12 w/ hypokinesis of the mid to distal anterior wall and septum with akinetic anterior wall. Ejection fraction is estimated at 40%. -> repeat 07/18 showed EF 50% with improvement in wall motion abnormalities - Will monitor on telemetry and trend troponin overnight - Patient complaining of chest pain although poor historian with confusion- during previous admission, she would sometimes complain of vague type chest pains - Continue home metoprolol, Lasix, magnesium, Pradaxa, Plavix, and statin (7) Ambulatory dysfunction: Plan: 09/15 to recent fall was discharged to [facility] 07/19 - patient's daughter would not like for her to return to [facility], with [facility] - PT/OT consulted with recent fracture and AMS - CM consulted Plan Chronic stable diagnoses: NSVT - continue metoprolol HTN - mildly hypotensive, continue metoprolol and Lasix with holding precautions B12 deficiency - continue daily supplement PPM - functioning appropriately, placed for AV block COPD - continue home inhaler as needed urinary incontinence - external cath ordered Paroxysmal atrial fibrillation-continue Pradaxa, metoprolol VTE ppx: Pradaxa Diet: heart healthy, minced and moist Code status: DNR/DNI Dispo: med/tele Admission and Anticipated Discharge Date Admission Date: 07/29/24 History of Present Illness Chief Complaint: AMS Primary Care Provider: SUNNI Felipe Patient is a 79-year-old female who presents from [facility] with a past medical history of Takotsubo cardiomyopathy, NSVT, hypertension, breast mass, B12 deficiency, esophageal stricture, COPD. she was recently discharged to [facility] for rehab on 07/19 after diagnosis of Takotsubo cardiomyopathy and pneumonia. following history was obtained by the patient's daughter the patient's confusion. As per the patient's daughter she was doing really well at [facility] for the first few days and then began to decline. She has only received physical therapy 5x while there, she is unaware of any falls but has found her mother ambulating on her own. She uses a walker with 4 wheels at baseline. She was brought in today because her daughter went to visit her and noted that she was confused, she felt like her words were coming out of her mouth but when she did speak her words were confused and did not make sense. She also has felt like the patient has been unsteady and shaky today. The patient has had a cough since she left the hospital, likely secondary to pneumonia. She has also had left-sided back pain since her fall that originally brought her in during her previous admission. The patient is complaining of abdominal pain on palpation today. When asked the patient stated she has had chest pain today that is central, although appears confused. She stated that it is no longer there but then also stated that it is still there; currently a poor historian given acute confusion. The patient's daughter stated that she quit smoking during her previous admission, currently not requiring nicotine patch. She lived at home previous to recent admission. Daughter is with the patient and may not be able to live at home alone again, and did not like the care [facility], would like to be referred to Center care on discharge. Case management consult placed. 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 She does have a living will stating DNR/DNI. Allergies Allergy/AdvReac Type Severity Reaction Status Date / Time camphor Allergy Unknown SHORTNESS Verified 07/23/24 09:31 OF BREATH eucalyptus Allergy Unknown SHORTNESS Verified 07/23/24 09:31 OF BREATH menthol Allergy Unknown SHORTNESS Verified 07/23/24 09:31 OF BREATH petrolatum,white Allergy Unknown Verified 07/23/24 09:31 [From [facility]] turpentine oil Allergy Unknown Verified 07/23/24 09:31 [From [facility]] aspirin AdvReac Mild ABD. PAIN Verified 07/23/24 09:31 AND VOMITING black pepper Allergy Mild Nausea Uncoded 07/23/24 09:31 Home Medications Medication Instructions Recorded Confirmed Type vit C 50 mg-E 15 unit-zinc cit 4.5 1 tab PO QAM 01/27/19 07/29/24 History mg-lutein 2.5 mg-zeaxan chew tablet ([facility]) docusate sodium 100 mg capsule 100 mg PO UD 02/04/19 07/29/24 History calcium 600 mg (as carbonate)-vit 1 tab PO DAILY 02/06/19 07/29/24 History D3 5 mcg (200 unit)-minerals tablet (Calcium 600 + Minerals) cholecalciferol (vitamin D3) 125 5,000 units PO DAILY #90 caps 09/13/19 07/29/24 Rx mcg (5,000 unit) capsule carboxymethylcellulose sodium 0.5 1 drp ophthalmic (eye) QID 08/24/22 07/29/24 History % eye drops in a dropperette (Refresh Plus) clobetasol 0.05 % topical ointment 1 applic topical BID PRN psoriasis 01/16/23 07/29/24 Rx #1 g dabigatran etexilate 150 mg capsule 150 mg PO BID 07/12/24 07/29/24 History famotidine 20 mg tablet 20 mg PO DAILY 07/12/24 07/29/24 History fluticasone propionate 50 1 spray intranasal Q OTHER DAY 07/12/24 07/29/24 History mcg/actuation nasal spray,suspension meclizine 25 mg tablet 25 mg PO TID PRN Vertigo 07/12/24 07/29/24 History acetaminophen 325 mg tablet 650 mg (2 x 325 mg) PO Q6H PRN 07/19/24 07/29/24 Rx pain #60 tabs atorvastatin 40 mg tablet 40 mg PO QAM #30 tabs 07/19/24 07/29/24 Rx clopidogrel 75 mg tablet 75 mg PO QAM #30 tabs 07/19/24 07/29/24 Rx cyanocobalamin (vitamin B-12) 1,000 mcg PO DAILY #30 caps 07/19/24 07/29/24 Rx 1,000 mcg capsule doxycycline hyclate 100 mg capsule 100 mg PO Q12H #1 cap 07/19/24 07/29/24 Rx furosemide 20 mg tablet 20 mg PO QAM #30 tabs 07/19/24 07/29/24 Rx ipratropium 20 mcg-albuterol 100 1 puff inhalation QID PRN cough or 07/19/24 07/29/24 Rx mcg/actuation mist for inhalation wheeze #0 grams (Combivent Respimat) lidocaine 5 % topical patch 1 patch transdermal DAILY@199907/19/24 07/29/24 Rx apply to left shoulder #15 ea magnesium oxide 400 mg (241.3 mg 400 mg PO BID #60 tabs 07/19/24 07/29/24 Rx magnesium) tablet metoprolol succinate 50 mg 50 mg PO HS #30 tabs 07/19/24 07/29/24 Rx tablet,extended release 24 hr nystatin 100,000 unit/gram topical 1 applic EXT PRN PRN rash in skin 07/19/24 07/29/24 Rx powder (Nystop) folds #15 grams Past Med/Surg History Problem List Ambulatory dysfunction Abdominal pain Compression fracture of L3 vertebra Acute respiratory failure due to COVID-19 Altered mental status COVID Vitamin B12 deficiency anemia Breast lump or mass Takotsubo cardiomyopathy Atrial premature depolarization with aberrant ventricular conduction (Acute) Cardiac ischemia (Acute) Fall as cause of accidental injury at home as place of occurrence (Acute) Rhabdomyolysis (Acute) Acute hypotension (Acute) Pneumonia Wide-complex tachycardia Acute anterior wall UT Elevated troponin NSVT (nonsustained ventricular tachycardia) Fall Failure to thrive in adult Rhabdomyolysis Psoriasis Hand pain, right Wrist pain, right Macular degeneration (Chronic) Esophageal stricture (Chronic) Asthma (Chronic) Chronic anticoagulation (Chronic) Elevated lipase Vitamin D deficiency (Chronic) Tremor (Chronic) Osteoporosis (Chronic) Legally blind (Chronic) Hypertension (Chronic) Gait instability (Acute) Chronic reflux esophagitis (Chronic) Chronic obstructive pulmonary disease (Chronic) Pacemaker (Chronic) Medical History Hypermagnesemia Esophageal diverticular disease Cardiac tamponade Complete heart block Left groin hernia Tinea corporis Benign positional vertigo Diverticulosis DVT (deep venous thrombosis) Infected wound Pulmonary emboli Left calcaneal fracture Loss of consciousness (03/17/14) Dehydration Surgical History Hx of inguinal hernia repair Family History Uncle No problems noted. Brother Lung cancer Myocardial infarction Father Myocardial infarction Cancer Stomach cancer Mother Myocardial infarction Other Diabetes Hypertension Denies family history of Ovarian cancer Prostate cancer Breast cancer Colorectal cancer Social History Smoking Status: Unknown if ever smoked Tobacco Type: Cigarettes Age Started Using Tobacco: 19; Age Quit Using Tobacco: 79; packs per day: 0.3; Second Hand Exposure: No; Do You Dip or Chew Tobacco: No; Hx Alcohol Use: Yes Alcohol type: hard liquor Alcohol Intake Frequency: Monthly or Less Hx Substance Use: No Preferred Language: Singaporean Communication Ability: Effective Visual Impairment: Blindness Hearing Ability: Normal Mine Foreman Required: No Beliefs That Will Affect Care: None marital status: / Current Living Situation: Alone Current Living Situation Comment: Neighbors help her when she needs it. current occupational status: retired How many Children do You have: 4 How many Children do You have Comment: Oldest son . Feels Safe at Home: Yes Childhood Exposure to Second-Hand Smoke: Yes Diet: regular caffeine: No during the past year weight has: remained stable Dental Care, Regularly: No Physical Activity Frequency: Daily Seatbelt Use: always Sunscreen Use: No Do you think of yourself as: straight/heterosexual Gender Identity: Female Assistive Devices: Walker and Other Review of Systems Review of Systems: see HPI Physical Exam Physical Exam: The patient is awake, confused, well developed and well nourished, normocephalic and atraumatic, in no acute distress. Non-toxic appearing. HEENT- EOMI, mucous membranes moist. Hearing grossly intact. Heart-normal S1 and S2. No murmurs, rubs or gallops. Lungs-decreased bilaterally, rhonchi noted, no respiratory distress, no accessory muscle use. 5L via NC. Abdomen-normal bowel sounds and soft. No ascites noted. Tender to palpation of all 4 quadrants. Extremities- no clubbing, cyanosis, or edema. Rheumatologic-decreased range of motion. Psychiatric-normal affect. Results & Data Results & Data Vital Signs (Past 12 Hours) Vital Signs Temp Pulse Pulse Resp BP BP Pulse Ox 07/29/24 18:02 76 25 H 99/47 L 95 07/29/24 16:38 80 18 95 07/29/24 15:52 80 16 104/53 L 95 07/29/24 15:51 95 07/29/24 15:00 89 07/29/24 14:46 37.3 C 81 16 104/53 L 89 L O2 Del Method O2 Flow Rate 07/29/24 18:02 Nasal Cannula 5 07/29/24 16:38 Nasal Cannula 6 07/29/24 15:52 Nasal Cannula 6 07/29/24 15:51 Room Air 07/29/24 15:00 07/29/24 14:46 Room Air Laboratory Results CBC, coags, VBG, BMP, lactate, ionized calcium, LFTs, ammonia, BNP, procalcitonin, UA, and viral respiratory BioFire panel reviewed Diagnostic Findings CT head, chest CTA, abdomen pelvis CT, chest x-ray reviewed ECG Additional Comments: ECG on 07/29/2024 at 1506 with normal sinus rhythm, rate 80, RBBB, deep T wave inversions in anterior leads, somewhat similar to previous Code Status & VTE Plan Code Status DNR/DNI VTE Prophylaxis Plan VTE Prophylaxis will be ordered: Yes Supervising Physician Co-Signing Physician Notes YEYO Supervision Note: I personally saw and examined the patient. I verified all solorzano points and agree with YEYO Vela with the following exceptions and/or additions: S-patient here with increasing confusion and worsening hypoxemia, no definite fever. Found to be COVID-19 positive in the ER with some findings on x-ray mostly of atelectasis and did have previous pneumonia treated on last admission 2 weeks ago. She was also diagnosed with Takotsubo's cardiomyopathy at that time but that had mostly resolved Patient well-known to me from recent previous admission. She is definitely confused from her baseline but was able to tell me she is in the [facility] and she is in the town of [place]. She knew who I was but did seem confused about why she was in the hospital O- Vitals reviewed Gen: AAOx2, NAD HEENT: Anicteric sclerae, EOMI CV: RRR no mgr nl S1S2 Pulm: CTAB no wcr Abd: +BS soft mild tenderness to palpation in left lower quadrant and right lower quadrant without guarding or rebound, ND no masses Ext: No edema, 2+ DP pulses Skin: No rashes, warm/dry Neuro: Full strength throughout [id number] female here with acute metabolic encephalopathy in the setting of COVID-19 and worsening hypoxemia with acute on chronic respiratory failure, now requiring 6 L nasal cannula Start Remdesivir and dexamethasone Provide supportive care No need for antibiotic therapy at this point as she was just treated with antibiotics for pneumonia 2 weeks ago and procalcitonin here negative. Continue Lasix for small pleural effusion related to previous heart failure If confusion not clearing up, consider more advanced brain imaging such as MRI PG Care Time/CCT Total # of Minutes Spent Total Time Spent with Patient: Total time spent is greater than 50% in coordination of care (as documented) at patient's floor/unit and/or counseling patient: Coding Level of Care Code 66366 INT INP/OBS CARE 75MIN Diagnoses COVID U07.1 Acute respiratory failure due to COVID-19 U07.1; J96.00 Altered mental status R41.82 Compression fracture of L3 vertebra S32.030A Abdominal pain R10.9 Takotsubo cardiomyopathy I51.81 Ambulatory dysfunction R26.2
[2024-07-29] MEDS: DEXAMETHASONE SOD INJ 4 MG/ML VIAL IV STA (18:24)
[2024-07-29 18:29] LABS: Appearance Urine Clear (Clear); Bilirubin Urine Negative (Negative); Blood Urine Negative (Negative); Color Urine Yellow; Glucose Urine UA Negative (Negative); Ketones Urine Trace (Negative); Leukocyte Esterase Urine Negative (Negative); Nitrite Urine Negative (Negative); Protein Urine Negative (Negative); Specific Gravity Urine 1.018 (1.000-1.030); Urobilinogen Urine Negative (Negative); pH Urine 6.5 (4.5-7.5)
[2024-07-29] MEDS: REMDESIVIR 200 MG in SODIUM CHLORIDE 0.9% 210 ML IV STA (19:16)
[2024-07-29] MEDS ORDERED: KETOROLAC TROMETHAMINE 15 MG/ML VIAL IV PRN (19:34)
[2024-07-29] MEDS: ACETAMINOPHEN 325 MG TAB PO STA (19:55)
[2024-07-29] MEDS ORDERED: IPRATROPIUM BROMIDE/ALBUTEROL respimat INH INH PRN (21:54)
[2024-07-29] MEDS ORDERED: DOCUSATE SODIUM 100 MG CAP PO PRN (21:54)
[2024-07-29] MEDS ORDERED: ALBUTEROL HFA 8 GM INHALER INH PRN (22:23)
[2024-07-29] MEDS ORDERED: IPRATROPIUM BROMIDE HFA INHALER INH PRN (22:24)
[2024-07-29] MEDS: ARTIFICIAL TEARS OP SCH (23:33)
[2024-07-29] MEDS: MAGNESIUM OXIDE 400 MG TAB PO SCH (23:34)
[2024-07-29] MEDS: DABIGATRAN ETEXILATE 75 MG CAP PO SCH (23:34)
[2024-07-29] MEDS: METOPROLOL SUCC 50MG EXT REL TAB PO SCH (23:35)
--- NOTE | 2024-07-30 01:28 | Emergency Department Note ---
History of Present Illness General Chief complaint: Altered Mental Status Stated complaint: CONFUSION Time Seen by Provider: 07/29/24 16:01 Source: patient and family (Daughter at bedside) History of Present Illness Provider complaint: Altered mental status 71-year-old female presents emergency department with daughter for altered mental status. Patient's daughter reports that the patient was having confusion and slurred speech while at her [facility]. She reports no recent falls or traumas. No nausea vomiting or diarrhea. No fever. Daughter reports the patient's oxygen levels were low at the [facility] also. Home Medications Medication Instructions Recorded Confirmed Type vit C 50 mg-E 15 unit-zinc cit 4.5 1 tab PO QAM 01/27/19 07/29/24 History mg-lutein 2.5 mg-zeaxan chew tablet ([employer]) docusate sodium 100 mg capsule 100 mg PO UD 02/04/19 07/29/24 History calcium 600 mg (as carbonate)-vit 1 tab PO DAILY 02/06/19 07/29/24 History D3 5 mcg (200 unit)-minerals tablet (Calcium 600 + Minerals) cholecalciferol (vitamin D3) 125 5,000 units PO DAILY #90 caps 09/13/19 07/29/24 Rx mcg (5,000 unit) capsule carboxymethylcellulose sodium 0.5 1 drp ophthalmic (eye) QID 08/24/22 07/29/24 History % eye drops in a dropperette (Refresh Plus) clobetasol 0.05 % topical ointment 1 applic topical BID PRN psoriasis 01/16/23 07/29/24 Rx #1 g dabigatran etexilate 150 mg capsule 150 mg PO BID 07/12/24 07/29/24 History famotidine 20 mg tablet 20 mg PO DAILY 07/12/24 07/29/24 History fluticasone propionate 50 1 spray intranasal Q OTHER DAY 07/12/24 07/29/24 History mcg/actuation nasal spray,suspension meclizine 25 mg tablet 25 mg PO TID PRN Vertigo 07/12/24 07/29/24 History acetaminophen 325 mg tablet 650 mg (2 x 325 mg) PO Q6H PRN 07/19/24 07/29/24 Rx pain #60 tabs atorvastatin 40 mg tablet 40 mg PO QAM #30 tabs 07/19/24 07/29/24 Rx clopidogrel 75 mg tablet 75 mg PO QAM #30 tabs 07/19/24 07/29/24 Rx cyanocobalamin (vitamin B-12) 1,000 mcg PO DAILY #30 caps 07/19/24 07/29/24 Rx 1,000 mcg capsule doxycycline hyclate 100 mg capsule 100 mg PO Q12H #1 cap 07/19/24 07/29/24 Rx furosemide 20 mg tablet 20 mg PO QAM #30 tabs 07/19/24 07/29/24 Rx ipratropium 20 mcg-albuterol 100 1 puff inhalation QID PRN cough or 07/19/24 07/29/24 Rx mcg/actuation mist for inhalation wheeze #0 grams (Combivent Respimat) lidocaine 5 % topical patch 1 patch transdermal DAILY@199907/19/24 07/29/24 Rx apply to left shoulder #15 ea magnesium oxide 400 mg (241.3 mg 400 mg PO BID #60 tabs 07/19/24 07/29/24 Rx magnesium) tablet metoprolol succinate 50 mg 50 mg PO HS #30 tabs 07/19/24 07/29/24 Rx tablet,extended release 24 hr nystatin 100,000 unit/gram topical 1 applic EXT PRN PRN rash in skin 07/19/24 07/29/24 Rx powder (Nystop) folds #15 grams Allergies Allergy/AdvReac Type Severity Reaction Status Date / Time camphor Allergy Unknown SHORTNESS Verified 07/23/24 09:31 OF BREATH eucalyptus Allergy Unknown SHORTNESS Verified 07/23/24 09:31 OF BREATH menthol Allergy Unknown SHORTNESS Verified 07/23/24 09:31 OF BREATH petrolatum,white Allergy Unknown Verified 07/23/24 09:31 [From Vicks Vaporub] turpentine oil Allergy Unknown Verified 07/23/24 09:31 [From [facility]icks [facility]apor[facility]] aspirin AdvReac Mild ABD. PAIN Verified 07/23/24 09:31 AND VOMITING black pepper Allergy Mild Nausea Uncoded 07/23/24 09:31 Past Med/Surg History Problem List COVID-19 (Acute) Hypoxia (Acute) Ambulatory dysfunction Abdominal pain Compression fracture of L3 vertebra Acute respiratory failure due to COVID-19 Altered mental status COVID Vitamin B12 deficiency anemia Breast lump or mass Takotsubo cardiomyopathy Atrial premature depolarization with aberrant ventricular conduction (Acute) Cardiac ischemia (Acute) Fall as cause of accidental injury at home as place of occurrence (Acute) Rhabdomyolysis (Acute) Acute hypotension (Acute) Pneumonia Wide-complex tachycardia Acute anterior wall IN Elevated troponin NSVT (nonsustained ventricular tachycardia) Fall Failure to thrive in adult Rhabdomyolysis Psoriasis Hand pain, right Wrist pain, right Macular degeneration (Chronic) Esophageal stricture (Chronic) Asthma (Chronic) Chronic anticoagulation (Chronic) Elevated lipase Vitamin D deficiency (Chronic) Tremor (Chronic) Osteoporosis (Chronic) Legally blind (Chronic) Hypertension (Chronic) Gait instability (Acute) Chronic reflux esophagitis (Chronic) Chronic obstructive pulmonary disease (Chronic) Pacemaker (Chronic) Medical History Hypermagnesemia Esophageal diverticular disease Cardiac tamponade after RV perforation during pacemaker placement, now resolved Complete heart block now has pacemaker Left groin hernia Tinea corporis Benign positional vertigo Diverticulosis DVT (deep venous thrombosis) Infected wound Pulmonary emboli Left calcaneal fracture Loss of consciousness (03/17/14) Dehydration Surgical History Hx of inguinal hernia repair Family History Uncle No problems noted. Brother Lung cancer Myocardial infarction Father Myocardial infarction Cancer Stomach cancer Mother Myocardial infarction Other Diabetes Hypertension Denies family history of Ovarian cancer Prostate cancer Breast cancer Colorectal cancer Social History Smoking Status: Unknown if ever smoked Tobacco Type: Cigarettes Age Started Using Tobacco: 19; Age Quit Using Tobacco: 79; packs per day: 0.3; Second Hand Exposure: No; Do You Dip or Chew Tobacco: No; Hx Alcohol Use: No Hx Substance Use: No Preferred Language: Belarusian Communication Ability: delayed Visual Impairment: Blindness Hearing Ability: Normal Natural Sciences Professor Required: No Beliefs That Will Affect Care: None marital status: / Current Living Situation: Prison Current Living Situation Comment: Neighbors help her when she needs it. current occupational status: retired How many Children do You have: 4 How many Children do You have Comment: Oldest son . Feels Safe at Home: Yes Safety Concerns: Feels Safe At This Time Childhood Exposure to Second-Hand Smoke: Yes Diet: regular caffeine: No during the past year weight has: remained stable Dental Care, Regularly: No Physical Activity Frequency: Daily Seatbelt Use: always Sunscreen Use: No Do you think of yourself as: straight/heterosexual Gender Identity: Female Assistive Devices: Denture - Upper, Denture - Lower, Glasses, Oxygen - Continuous and Walker Physical Exam Vital Signs Vital Signs - 24 hr 07/29/24 14:46 07/29/24 15:00 07/29/24 15:51 Temperature 37.3 C Temperature Source Oral Pulse Rate 81 89 Pulse Rate [Apical] Respiratory Rate 16 Respiratory Effort / Characteristics Respiratory Depth Normal Blood Pressure 104/53 L Blood Pressure [Right Arm] Blood Pressure Mean 70 Blood Pressure Mean [Right Arm] Blood Pressure Position [Right Arm] Pulse Oximetry 89 L 95 Oxygen Delivery Method Room Air Room Air Oxygen Flow Rate Sepsis Recent Fever Within 48 Hours No Sepsis New/Unexplained Change in Mental Status Yes Sepsis Action Taken by Nursing No Action Required 07/29/24 15:52 07/29/24 16:38 07/29/24 18:02 Temperature Temperature Source Pulse Rate 80 Pulse Rate [Apical] 80 76 Respiratory Rate 16 18 25 H Respiratory Effort / Characteristics Non-Labored Spontaneous Respiratory Depth Blood Pressure Blood Pressure [Right Arm] 104/53 L 99/47 L Blood Pressure Mean Blood Pressure Mean [Right Arm] 70 64 Blood Pressure Position [Right Arm] Pulse Oximetry 95 95 95 Oxygen Delivery Method Nasal Cannula Nasal Cannula Nasal Cannula Oxygen Flow Rate 6 6 5 Sepsis Recent Fever Within 48 Hours Sepsis New/Unexplained Change in Mental Status Sepsis Action Taken by Nursing 07/29/24 18:30 07/29/24 18:45 Temperature Temperature Source Pulse Rate Pulse Rate [Apical] 79 79 Respiratory Rate 18 16 Respiratory Effort / Characteristics Non-Labored Spontaneous Non-Labored Spontaneous Respiratory Depth Blood Pressure Blood Pressure [Right Arm] 105/52 L 105/52 L Blood Pressure Mean Blood Pressure Mean [Right Arm] 69 69 Blood Pressure Position [Right Arm] Lying Lying Pulse Oximetry 91 93 Oxygen Delivery Method Nasal Cannula Nasal Cannula Oxygen Flow Rate 6 6 Sepsis Recent Fever Within 48 Hours Sepsis New/Unexplained Change in Mental Status Sepsis Action Taken by Nursing Physical Exam HENT: Exam performed. - Head: Normocephalic and atraumatic. EYES: Conjunctivae and EOM are normal. Right eye exhibits no discharge. Left eye exhibits no discharge. No scleral icterus. NECK: Normal range of motion. Neck supple. No JVD present. CV: Normal rate, regular rhythm, normal heart sounds and intact distal pulses. There is no peripheral edema. Palpable radial pulses bue. PULM/CHEST: Rhonchi bilaterally. ABD: The abdomen is soft. Pain on palpation of left lower quadrant. NEURO: Motor and sensation grossly intact. Course Course 160: The patient was evaluated in room C10. A complete history and physical exam was performed Cardiac monitoring: An order was placed for continuous cardiac monitoring. The monitor shows a rate of 80 with sinus rhythm interpreted by me Patient was hypoxic on room air, oxygen saturations improved with supplemental oxygen via nasal cannula. 1809: Vital signs stable supplemental oxygen via nasal cannula. Labs show a white blood cell count 4.95 hemoglobin 14.3 VBG 3 8 with venous pCO2 51. Ammonia negative. BNP mildly elevated at 327. Procalcitonin negative. CT head negative. CTA of the chest shows right middle lobe airspace disease versus atelectasis. Patient is COVID-positive. Decadron 6 mg ordered for the patient. Discussed case with admitting team Dr. Lopez and she stated to hold off on antibiotics given the patient's procalcitonin is negative and she is COVID- positive. Patient be admitted to the [facility] team. Administered Medications Artificial Tears (Artificial Tears) 1 drops OP QID [facility] Stop: 08/28/24 22:29 Last Admin: 07/29/24 23:33 Dose: 1 drops Documented By: CORRINEK Dabigatran (Dabigatran Etexilate 75 Mg Cap) 150 mg PO BID [facility] Stop: 08/28/24 21:29 Last Admin: 07/29/24 23:34 Dose: 150 mg Documented By: EFK Magnesium Oxide (Magnesium Oxide 400 Mg Tab) 400 mg PO BID [facility] Stop: 08/28/24 22:29 Last Admin: 07/29/24 23:34 Dose: 400 mg Documented By: EFK Metoprolol Succinate (Metoprolol Succ 50mg Ext Rel Tab) 50 mg PO HS [facility] Stop: 08/28/24 22:29 Last Admin: 07/29/24 23:35 Dose: Not Given Documented By: EFK Discontinued Medications Acetaminophen (Acetaminophen 325 Mg Tab) 650 mg PO NOW STA Stop: 07/29/24 19:35 Last Admin: 07/29/24 19:55 Dose: 650 mg Documented By: MYRNA Dexamethasone (Dexamethasone Sod Inj 4 Mg/Ml Vial) 6 mg IV NOW STA Stop: 07/29/24 18:00 Last Admin: 07/29/24 18:24 Dose: 6 mg Documented By: MYRNA Remdesivir 200 mg/ Sodium (Chloride) 250 mls @ 125 mls/hr IV ONE STA; Protocol Stop: 07/29/24 20:48 Last Infusion: 07/29/24 22:35 Dose: Infused Documented By: Admin: 07/29/24 19:16 Dose: 125 mls/hr Documented By: MYRNA Ioversol (Optiray 320 125ml) 117 ml IV ONCE ONE Stop: 07/29/24 16:56 Last Admin: 07/29/24 16:55 Dose: 117 ml Documented By: GENEVIEVE Critical Care Time Critical Care Time: Yes Total Critical Care Time: 78 I have personally spent greater than 78 minutes of critical care time in the direct management of this patient. This includes bedside care, interpretation of diagnostic studies, and testing, discussion with consultants, patient, and family members, and other required patient management activities. This 78 minutes is in excess of all separately billable procedures. Medical Decision Making Laboratory Data Attestation: I reviewed the patient's lab results. 07/29/24 15:10 07/29/24 15:10 Lab Results 07/29/24 07/29/24 07/29/24 Range/Units 15:02 15:10 16:19 WBC 4.95 (4.8-10.8) K/ul RBC 4.41 (4.20-5.40) M/uL Hgb 12.5 (12.0-16.0) g/dl POC Hgb (12.0-16.0) g/dl Hct 40.5 (37.0-47.0) % POC Hct (37-47) % MCV 91.8 (80.0-100.0) fL MCH 28.3 (25.0-34.0) pg MCHC 30.9 L (32.0-36.0) g/dL RDW Std Deviation 50.6 H (36.4-46.3) fL RDW Coeff of Prosper 15.0 H (11.5-14.5) % Plt Count 249 (130-400) K/uL MPV 10.8 (9.4-12.4) fL Immature Gran % (Auto) 0.6 % Neut % (Auto) 78.0 % Lymph % (Auto) 5.5 % Gilchrist % (Auto) 14.5 % Eos % (Auto) 0.4 % Baso % (Auto) 1.0 % Neut # (Auto) 3.86 (1.40-6.50) K/uL Lymph # (Auto) 0.27 L (1.20-3.40) K/uL Gilchrist # (Auto) 0.72 H (0.11-0.59) K/uL Eos # (Auto) 0.02 (0.00-0.50) K/uL Baso # (Auto) 0.05 (0.00-0.20) K/uL Immature Gran # (Auto) 0.03 (0.01-0.20) K/uL PT 11.4 (9.0-12.0) Seconds INR 1.1 (0.9-1.1) APTT 35 H (21-31) Seconds PTT Ratio 1.3 VBG pH (7.36-7.41) VBG pCO2 (38-50) mmHg VBG pO2 mmHg VBG HCO3 mmol/L VBG O2 Saturation % VBG Base Excess mEq/L POC Sodium (135-144) mmol/L Sodium 136 (136-145) mmol/L POC Potassium (3.3-5.0) mmol/L Potassium 4.5 (3.5-5.1) mmol/L POC Chloride (101-112) mmol/L Chloride 96 L (98-107) mmol/L Carbon Dioxide 30 (21-32) mmol/L POC Total CO2 (24-31) mmol/L Anion Gap 10 (3-11) POC Anion Gap (16-25) mmol/L POC BUN (7-18) mg/dl BUN 18 (6-23) mg/dl Creatinine 0.90 (0.6-1.2) mg/dl POC Creatinine (0.6-1.3) mg/dl Est Cr Clr Drug Dosing 48.0 ml/min eGFR 65.44 BUN/Creatinine Ratio 20.0 (10-20) Glucose 77 (70-99(Fasting)) mg/dl POC Glucose 79 (70-99) mg/dl POC Glucose (other) (70-99) mg/dl Lactate (0.4-2.0) mmol/L Calcium 9.1 (8.6-10.3) mg/dl POC Ioniz Calcium Edward (1.12-1.32) mmol/l Magnesium 2.3 (1.7-2.4) mg/dl Total Bilirubin 0.5 (0.2-1.0) mg/dl Direct Bilirubin 0.1 (0-0.2) mg/dl AST 27 (13-39) U/L ALT 18 (7-52) U/L Alkaline Phosphatase 112 H (34-104) U/L Ammonia (18-72) umol/L Troponin I High Sens 9.4 (0-14) pg/ml B-Natriuretic Peptide 327 H (0-100) pg/ml Total Protein 7.0 (6.0-8.3) gm/dl Albumin 3.9 (3.4-5.0) gm/dl Procalcitonin 0.07 (0-0.5) ng/ml Urine Color Urine Appearance (Clear) Urine pH (4.5-7.5) Ur Specific Concord (1.000-1.030) Urine Protein (Negative) Urine Glucose (UA) (Negative) Urine Ketones (Negative) Urine Blood (Negative) Urine Nitrite (Negative) Urine Bilirubin (Negative) Urine Urobilinogen (Negative) Ur Leukocyte Esterase (Negative) Adenovirus (PCR) Not Detected (NotDetected) B. pertussis DNA (PCR) Not Detected (NotDetected) B.parapertussis DNA PCR Not Detected (NotDetected) C. pneumoniae DNA (PCR) Not Detected (NotDetected) Coronavirus OC43 (PCR) Not Detected (NotDetected) Coronavirus HKU1 (PCR) Not Detected (NotDetected) Coronavirus 229E (PCR) Not Detected (NotDetected) SARS-CoV-2 (PCR) DETECTED A (NotDetected) Coronavirus NL63 (PCR) Not Detected (NotDetected) Human Metapneumovir PCR Not Detected (NotDetected) Influenza Type A (PCR) Not Detected (NotDetected) Influenza Type B (PCR) Not Detected (NotDetected) M. pneumoniae (PCR) Not Detected (NotDetected) Parainfluenza 1 (PCR) Not Detected (NotDetected) Parainfluenza 2 (PCR) Not Detected (NotDetected) Parainfluenza 3 (PCR) Not Detected (NotDetected) Parainfluenza 4 (PCR) Not Detected (NotDetected) RSV (PCR) Not Detected (NotDetected) Entero/Rhino (PCR) Not Detected (NotDetected) 07/29/24 07/29/24 07/29/24 Range/Units 16:24 17:21 18:05 WBC (4.8-10.8) K/ul RBC (4.20-5.40) M/uL Hgb (12.0-16.0) g/dl POC Hgb 14.3 (12.0-16.0) g/dl Hct (37.0-47.0) % POC Hct 42 (37-47) % MCV (80.0-100.0) fL MCH (25.0-34.0) pg MCHC (32.0-36.0) g/dL RDW Std Deviation (36.4-46.3) fL RDW Coeff of Prosper (11.5-14.5) % Plt Count (130-400) K/uL MPV (9.4-12.4) fL Immature Gran % (Auto) % Neut % (Auto) % Lymph % (Auto) % Gilchrist % (Auto) % Eos % (Auto) % Baso % (Auto) % Neut # (Auto) (1.40-6.50) K/uL Lymph # (Auto) (1.20-3.40) K/uL Gilchrist # (Auto) (0.11-0.59) K/uL Eos # (Auto) (0.00-0.50) K/uL Baso # (Auto) (0.00-0.20) K/uL Immature Gran # (Auto) (0.01-0.20) K/uL PT (9.0-12.0) Seconds INR (0.9-1.1) APTT (21-31) Seconds PTT Ratio VBG pH 7.38 (7.36-7.41) VBG pCO2 51 H (38-50) mmHg VBG pO2 27 mmHg VBG HCO3 30 mmol/L VBG O2 Saturation < 60.0 % VBG Base Excess 3.9 mEq/L POC Sodium 135 (135-144) mmol/L Sodium (136-145) mmol/L POC Potassium 4.4 (3.3-5.0) mmol/L Potassium (3.5-5.1) mmol/L POC Chloride 94 L (101-112) mmol/L Chloride (98-107) mmol/L Carbon Dioxide (21-32) mmol/L POC Total CO2 31 (24-31) mmol/L Anion Gap (3-11) POC Anion Gap 15.0 L (16-25) mmol/L POC BUN 18 (7-18) mg/dl BUN (6-23) mg/dl Creatinine (0.6-1.2) mg/dl POC Creatinine 1.0 (0.6-1.3) mg/dl Est Cr Clr Drug Dosing ml/min eGFR BUN/Creatinine Ratio (10-20) Glucose (70-99(Fasting)) mg/dl POC Glucose (70-99) mg/dl POC Glucose (other) 74 (70-99) mg/dl Lactate 0.8 (0.4-2.0) mmol/L Calcium (8.6-10.3) mg/dl POC Ioniz Calcium Edward 1.10 L (1.12-1.32) mmol/l Magnesium (1.7-2.4) mg/dl Total Bilirubin (0.2-1.0) mg/dl Direct Bilirubin (0-0.2) mg/dl AST (13-39) U/L ALT (7-52) U/L Alkaline Phosphatase (34-104) U/L Ammonia < 10.0 L (18-72) umol/L Troponin I High Sens (0-14) pg/ml B-Natriuretic Peptide (0-100) pg/ml Total Protein (6.0-8.3) gm/dl Albumin (3.4-5.0) gm/dl Procalcitonin (0-0.5) ng/ml Urine Color Yellow Urine Appearance Clear (Clear) Urine pH 6.5 (4.5-7.5) Ur Specific Concord 1.018 (1.000-1.030) Urine Protein Negative (Negative) Urine Glucose (UA) Negative (Negative) Urine Ketones Trace H (Negative) Urine Blood Negative (Negative) Urine Nitrite Negative (Negative) Urine Bilirubin Negative (Negative) Urine Urobilinogen Negative (Negative) Ur Leukocyte Esterase Negative (Negative) Adenovirus (PCR) (NotDetected) B. pertussis DNA (PCR) (NotDetected) B.parapertussis DNA PCR (NotDetected) C. pneumoniae DNA (PCR) (NotDetected) Coronavirus OC43 (PCR) (NotDetected) Coronavirus HKU1 (PCR) (NotDetected) Coronavirus 229E (PCR) (NotDetected) SARS-CoV-2 (PCR) (NotDetected) Coronavirus NL63 (PCR) (NotDetected) Human Metapneumovir PCR (NotDetected) Influenza Type A (PCR) (NotDetected) Influenza Type B (PCR) (NotDetected) M. pneumoniae (PCR) (NotDetected) Parainfluenza 1 (PCR) (NotDetected) Parainfluenza 2 (PCR) (NotDetected) Parainfluenza 3 (PCR) (NotDetected) Parainfluenza 4 (PCR) (NotDetected) RSV (PCR) (NotDetected) Entero/Rhino (PCR) (NotDetected) Imaging Data Radiologist's Impression: Chest X-Ray 07/29/24 16:03 INDICATION: Cough. TECHNIQUE: Frontal radiograph of the chest. COMPARISON: Radiograph from 07/15/2024. FINDINGS: Cardiomegaly. Pulmonary vasculature appears within normal limits. Small left pleural effusion with underlying atelectasis/airspace disease, somewhat improved from prior. No pneumothorax. No acute fracture. Left-sided pacemaker again noted. No acute fracture. IMPRESSION:Small left pleural effusion with underlying atelectasis/airspace disease, somewhat improved from prior. Electronically signed by Seamus Montanez 07-29-2024 4:17 PM Abdomen/Pelvis CT 07/29/24 16:14 INDICATION: Difficulty breathing. COMPARISON: CT from 07/11/2024. TECHNIQUE: Axial CT images of the chest, abdomen and pelvis were obtained following IV contrast administration. PE protocol the chest. Coronal and sagittal reformations were reviewed. Oral contrast was administered. FINDINGS: Chest: The thoracic aorta appears normal in caliber. Negative for pulmonary embolism. The heart is mildly enlarged. No pericardial or pleural effusion. No pneumothorax. Mildly prominent, nonspecific mediastinal lymph nodes. Left-sided pacemaker again noted. Subsegmental atelectasis/airspace disease in the right middle lobe and bilateral lower lobes. Subpleural 2 mm nodule/scarring in the right upper lobe again noted. No acute osseous abnormality evident. Degenerative changes in the spine. Abdomen and pelvis: The gallbladder is surgically absent. The liver, spleen, pancreas and adrenal glands appear unremarkable. No hydronephrosis. No evidence of bowel obstruction/colitis/appendicitis. No free air. No drainable fluid collection. Upper abdominal aortic ectasia, 2.7 cm, unchanged. Negative for aneurysm or dissection. The urinary bladder appears unremarkable. Acute appearing L3 superior endplate compression fracture with approximately 10-15% height loss. Degenerative changes in the hips and spine. Right femoral hardware noted IMPRESSION: 1. Negative for pulmonary embolism. 2. Subsegmental atelectasis/airspace disease in the right middle lobe and bilateral lower lobes. 3. Acute appearing L3 superior endplate compression fracture with approximately 10-15% height loss. Electronically signed by Seamus Montanez 07-29-2024 5:26 PM Chest CTA 07/29/24 16:14 INDICATION: Difficulty breathing. COMPARISON: CT from 07/11/2024. TECHNIQUE: Axial CT images of the chest, abdomen and pelvis were obtained following IV contrast administration. PE protocol the chest. Coronal and sagittal reformations were reviewed. Oral contrast was administered. FINDINGS: Chest: The thoracic aorta appears normal in caliber. Negative for pulmonary embolism. The heart is mildly enlarged. No pericardial or pleural effusion. No pneumothorax. Mildly prominent, nonspecific mediastinal lymph nodes. Left-sided pacemaker again noted. Subsegmental atelectasis/airspace disease in the right middle lobe and bilateral lower lobes. Subpleural 2 mm nodule/scarring in the right upper lobe again noted. No acute osseous abnormality evident. Degenerative changes in the spine. Abdomen and pelvis: The gallbladder is surgically absent. The liver, spleen, pancreas and adrenal glands appear unremarkable. No hydronephrosis. No evidence of bowel obstruction/colitis/appendicitis. No free air. No drainable fluid collection. Upper abdominal aortic ectasia, 2.7 cm, unchanged. Negative for aneurysm or dissection. The urinary bladder appears unremarkable. Acute appearing L3 superior endplate compression fracture with approximately 10-15% height loss. Degenerative changes in the hips and spine. Right femoral hardware noted IMPRESSION: 1. Negative for pulmonary embolism. 2. Subsegmental atelectasis/airspace disease in the right middle lobe and bilateral lower lobes. 3. Acute appearing L3 superior endplate compression fracture with approximately 10-15% height loss. Electronically signed by Seamus Montanez 07-29-2024 5:[address] 07/29/24 16:15 INDICATION: Altered mental status. COMPARISON: CT brain from 07/11/2024. TECHNIQUE: Axial CT images of the head were obtained without IV contrast. Coronal and sagittal reformations were reviewed. FINDINGS: Orantes-white differentiation is relatively preserved. No mass, mass effect or midline shift. Mild chronic ischemic white matter changes and mild cortical atrophy. Basal ganglia calcifications. No evidence of acute large territorial infarction or acute intracranial hemorrhage. Ventricles appear normal in size. Basal cisterns are patent. No depressed calvarial fracture. IMPRESSION: No acute intracranial process. Electronically signed by Seamus Montanez 07-29-2024 5:18 PM ECG Data Attestation: I personally reviewed and interpreted this ECG as follows: Rate (beats per minute): 80 Rhythm: + normal sinus ECG Intervals/blocks: + Normal QRS, + Normal HI and + Normal QT-c ECG ST segments: + Normal ST segments MDM Narrative 1601: The patient was evaluated in room C10. A complete history and physical exam was performed Cardiac monitoring: An order was placed for continuous cardiac monitoring. The monitor shows a rate of 80 with sinus rhythm interpreted by me Patient was hypoxic on room air, oxygen saturations improved with supplemental oxygen via nasal cannula. 1810: Vital signs stable supplemental oxygen via nasal cannula. Labs show a white blood cell count 4.95 hemoglobin 14.3 VBG 3 8 with venous pCO2 51. Ammonia negative. BNP mildly elevated at 327. Procalcitonin negative. CT head negative. CTA of the chest shows right middle lobe airspace disease versus atelectasis. Patient is COVID-positive. Decadron 6 mg ordered for the patient. Discussed case with admitting team Dr. Lopez and she stated to hold off on antibiotics given the patient's procalcitonin is negative and she is COVID- positive. Patient be admitted to the [facility] team. Impression & Plan Hypoxia, COVID-19 Discharge Plan Visit Data Chief Complaint: Altered Mental Status Stated Complaint: CONFUSION ED Provider: Nestor Lyon Discharge Problem: Hypoxia, COVID-19 Patient Disposition: Admitted As Inpatient Discharge Instructions Interventions: ED Discharge Assessment Last Done: 07/29/24 21:13
[2024-07-30 04:11] LABS: Basophils # (auto) 0.02 K/uL (0.00-0.20); Basophils % (auto) 0.6 %; Hematocrit (blood only) 39.1 % (37.0-47.0); Immature Granulocytes # (auto) 0.01 K/uL (0.01-0.20); Immature Granulocytes % (auto) 0.3 %; Lymphocytes # (auto) 0.26 K/uL (1.20-3.40); Lymphocytes % (auto) 8.2 %; Mean Corpuscular Hemoglobin 28.2 pg (25.0-34.0); Mean Corpuscular Hgb Conc 30.7 g/dL (32.0-36.0); Mean Platelet Volume 10.4 fL (9.4-12.4); Monocytes % (auto) 6.3 %; Neutrophils % (auto) 84.6 %; Platelet Count 246 K/uL (130-400); RDW Standard Deviation 50.4 fL (36.4-46.3); Red Blood Count 4.25 M/uL (4.20-5.40); White Blood Count 3.19 K/ul (4.8-10.8)
[2024-07-30 04:29] LABS: BUN Creatinine Ratio 21.8 (10-20); Calcium 8.4 mg/dl (8.6-10.3); Magnesium 2.4 mg/dl (1.7-2.4); Potassium 4.2 mmol/L (3.5-5.1)
--- NOTE | 2024-07-30 05:43 | Electrocardiogram Report ---
Test Reason : Blood Pressure : */* mmHG Vent. Rate : 80 BPM Atrial Rate : 80 BPM P-R Int : 142 ms QRS Dur : 114 ms QT Int : 396 ms P-R-T Axes : 21 108 86 degrees QTcB Int : 456 ms Normal sinus rhythm Right bundle branch block T wave abnormality, consider anterior ischemia Abnormal ECG When compared with ECG of 14-Jul-2024 19:15, Left anterior fascicular block is no longer Present Minimal criteria for Anteroseptal infarct are no longer Present Nonspecific T wave abnormality no longer evident in Inferior leads T wave inversion more evident in Anterior leads QT has shortened Confirmed by Ganga Mendoza ([id number]) on 07/30/2024 5:42:50 AM Referred By: Confirmed By: Ganga Mendoza
[2024-07-30] MEDS: ACETAMINOPHEN 325 MG TAB PO PRN (07:46)
[2024-07-30] MEDS: CLOPIDOGREL BISULFATE 75 MG TAB PO SCH (07:48)
[2024-07-30] MEDS: ATORVASTATIN 40 MG TAB PO SCH (07:48)
[2024-07-30] MEDS: CYANOCOBALAMIN (B-12) 500 MCG TABLET PO SCH (07:48)
[2024-07-30] MEDS: CHOLECALCIFEROL 125 MCG (5,000 UNITS) TAB PO SCH (07:49)
[2024-07-30] MEDS: CALCIUM 600MG + VIT D 400 IU TAB PO SCH (07:49)
[2024-07-30] MEDS: FLUTICASONE PROPIONATE NA SPR 16 GM BTL NAE SCH (07:49)
[2024-07-30] MEDS: FAMOTIDINE 20 MG TAB PO SCH (07:50)
[2024-07-30] MEDS: FUROSEMIDE 20 MG TAB PO SCH (07:50)
--- NOTE | 2024-07-30 17:00 | Hospitalist Progress Note ---
Date of Service July 30, 2024 Assessment & Plan (1) COVID: Plan: [facility], hypoxia, cough, shortness of breath x1 day CXR showing improved small left pleural effusion from previous admission CTA showing subsegmental atelectasis/airspace disease in RML and bilateral LL Remains afebrile, initially requiring 5L oxygen via nasal cannula and now weaned down to 2 L nasal cannula Continue daily dexamethasone 6 mg IV Continue remdesivir x 5-day course Continue incentive spirometry Q1H Wean off oxygen as tolerated Follow-up chest CT in 2 months to ensure resolution of previous infiltrates (2) Acute respiratory failure due to COVID-19: Plan: Improving as noted above. At baseline since last admission for CHF, patient uses 2 L NC BNP 327, and with much improved heart failure since last admission do not suspect secondary bacterial PNA as imaging improved from recent admission, completed course of antibiotics, procalcitonin negative, no signs of infection at this time - defer abx blood cultures no growth to date-follow Continue home p.o. Lasix (3) Altered mental status: Plan: Acute metabolic encephalopathy suspect 2/2 to COVID infection and hypoxemia-now resolved CT head negative UA negative (4) Compression fracture of L3 vertebra: Plan: not noted during imaging during previous admission Patient does not remember any falls As per patient's daughter has been ambulating on her own at [facility], daughter was not aware of any falls A/P CT noted acute appearing L3 superior endplate compression fracture with approximately 10 to 15% height loss patient denies back pain however reports left-sided hip pain which she thinks was present since the last admission when she was stuck in her bathtub x 3 days Add lidocaine patch to left hip Continue Tylenol prn, Toradol prn, and oxy prn for pain unrelieved by #1 and 2 (5) Abdominal pain: Plan: Suspect could be due to gas pains and constipation-finally moved her bowels in 07/30 Make docusate twice daily scheduled and add MiraLAX CT AP negative for acute abd changes, UA without infection With a hx of esophageal dysmotility- continue minced and moist diet (6) Takotsubo cardiomyopathy: Plan: Dx on recent admission (d/c 07/19) Cath 07/15 showed with Mild to moderate nonobstructive coronary artery disease in major epicardial coronary arteries-25% proximal to mid LAD, 40-50% distal circumflex involving bifurcation with OM 2,Severe small branch vessel disease, and80% proximal D1 (<2 mm diameter) Echo 07/12 w/ hypokinesis of the mid to distal anterior wall and septum with akinetic anterior wall. Ejection fraction is estimated at 40%. -> repeat 07/18 showed EF 50% with improvement in wall motion abnormalities ECG here with deep T wave inversions in anterior leads but troponin serially negative x 2 No chest pains Continue home metoprolol, Lasix, magnesium, Pradaxa, Plavix, and statin (7) Ambulatory dysfunction: Plan: 09/15 to recent fall was discharged to [facility] 07/19 patient's daughter would not like for her to return to [facility], with [facility] PT/OT consulted-recommends rehab CM consulted-pending evaluation (8) Left hip pain: Plan: Add lidocaine patch as noted above, could be tendinitis at insertion site at ASIS Plan Chronic stable diagnoses: NSVT - continue metoprolol HTN - mildly hypotensive, continue metoprolol and Lasix with holding precautions B12 deficiency - continue daily supplement PPM - functioning appropriately, placed for AV block COPD - continue home inhaler as needed urinary incontinence - external cath ordered Paroxysmal atrial fibrillation-in a paced rhythm on telemetry, continue Pradaxa, metoprolol VTE ppx: Pradaxa Code status: DNR/DNI Dispo: Continued stay med/tele Discussed her care with [id number], Bk, on 07/30 Admission and Anticipated Discharge Date Admission Date: July 29, 2024 Subjective Patient feeling much improved today and is much more mentally clear. She remembers me from last admission and reports she is feeling better. Her supplemental O2 is weaned down to 2 L nasal cannula. She is complaining of pain in the left hip which has been ongoing since the last admission. She also did have a bowel movement today but reports she cannot remember the last time she had a bowel movement before that and thinks that is why she is having some mild abdominal pains. She is coughing but denies shortness of breath. Telemetry with paced rhythm with rates in the 60s I discussed her care with her [id number] on the phone Physical Exam Constitutional: WD/WN, vitals as above Respiratory: normal respiratory effort and + cough Auscultation: lungs clear to auscultation bilaterally Cardiovascular: RRR, no murmur, no edema Gastrointestinal (Abdomen): Inspection/Auscultation: normal bowel sounds; abdomen not distended Percussion/Palpation: + abdomen tender (Mild in LLQ and RLQ without guarding or rebound) and abdomen soft Musculoskeletal: Extremities: extremities normal to inspection (With positive TTP over left ASIS) Neurologic: no focal motor deficits Psychiatric: A+Ox3, euthymic affect Results & Data Results & Data Vital Signs (Past 12 Hours) Vital Signs Temp Pulse Pulse Resp BP Pulse Ox O2 Del Method 07/30/24 16:06 36.7 C 67 16 96/57 L 93 Nasal Cannula 07/30/24 14:00 73 07/30/24 11:30 68 07/30/24 11:23 36.6 C 72 20 102/50 L 96 Room Air 07/30/24 08:16 36.6 C 72 16 114/56 L 95 Nasal Cannula 07/30/24 07:45 Nasal Cannula 07/30/24 07:00 61 O2 Flow Rate 07/30/24 16:06 2 07/30/24 14:00 07/30/24 11:30 07/30/24 11:23 07/30/24 08:16 2 07/30/24 07:45 4 07/30/24 07:00 Laboratory Results CBC, BMP, magnesium, troponin, blood cultures, MRSA nasal swab reviewed PG Care Time/CCT Total # of Minutes Spent Total Time Spent with Patient: Total time spent is greater than 50% in coordination of care (as documented) at patient's floor/unit and/or counseling patient: Coding Level of Care Code 72570 SUB INP/OBS CARE 2/35MIN Diagnoses COVID U07.1 Acute respiratory failure due to COVID-19 U07.1; J96.00 Altered mental status R41.82 Compression fracture of L3 vertebra S32.030A Abdominal pain R10.9 Takotsubo cardiomyopathy I51.81 Ambulatory dysfunction R26.2 Left hip pain M25.552
[2024-07-30] MEDS: LIDOCAINE 5% 1 PATCH TD STA (18:24)
[2024-07-30] MEDS: dexAMETHasone 6 MG in SYRINGE 0 ML IV SCH (19:58)
[2024-07-30] MEDS: DOCUSATE SODIUM 100 MG CAP PO SCH (21:03)
[2024-07-30] MEDS: REMDESIVIR 100 MG in SODIUM CHLORIDE 0.9% 230 ML IV SCH (21:03)
[2024-07-31 07:02] LABS: Albumin Globulin Ratio 1.2 (0.9-2); Albumin Level 3.4 gm/dl (3.4-5.0); BUN Creatinine Ratio 26.6 (10-20); Bilirubin,Total 0.4 mg/dl (0.2-1.0); Calcium 8.3 mg/dl (8.6-10.3); Globulin 2.8 gm/dl (2.5-4.0); Potassium 4.9 mmol/L (3.5-5.1); Total Protein 6.2 gm/dl (6.0-8.3)
[2024-07-31] MEDS: oxyCODONE HCL IR 5 MG TAB (IMMEDIATE RELEASE) PO PRN (12:30)
--- NOTE | 2024-07-31 17:21 | Hospitalist Progress Note ---
Date of Service July 31, 2024 Assessment & Plan (1) COVID: Plan: Presented from a intermediate facility with confusion, hypoxia, cough, shortness of breath x1 day CXR showing improved small left pleural effusion from previous admission CTA showing subsegmental atelectasis/airspace disease in RML and bilateral LL Remains afebrile, initially requiring 5L oxygen via nasal cannula and now weaned down to room air at rest Continue daily dexamethasone 6 mg IV Continue remdesivir x 5-day course Continue incentive spirometry Q1H Check 2 step prior to discharge from rehab Follow-up chest CT in 2 months to ensure resolution of previous infiltrates (2) Acute respiratory failure due to COVID-19: Plan: Improving as noted above. At baseline since last admission for CHF, patient uses 2 L NC BNP 327, and with much improved heart failure since last admission do not suspect secondary bacterial PNA as imaging improved from recent admission, completed course of antibiotics, procalcitonin negative, no signs of infection at this time - defer abx blood cultures no growth to date-follow Continue home p.o. Lasix (3) Altered mental status: Plan: Acute metabolic encephalopathy suspect 2/2 to COVID infection and hypoxemia-now resolved CT head negative UA negative (4) Compression fracture of L3 vertebra: Plan: not noted during imaging during previous admission Patient does not remember any falls As per patient's daughter has been ambulating on her own at [facility], daughter was not aware of any falls A/P CT noted acute appearing L3 superior endplate compression fracture with approximately 10 to 15% height loss patient denies back pain however reports left-sided hip pain which she thinks was present since the last admission when she was stuck in her bathtub x 3 days Added lidocaine patch to left hip which is helping Continue Tylenol prn, Toradol prn, and oxy prn for pain unrelieved by #1 and 2 (5) Abdominal pain: Plan: Suspect could be due to gas pains and constipation-finally moved her bowels in 07/30 Make docusate twice daily scheduled and add MiraLAX CT AP negative for acute abd changes, UA without infection With a hx of esophageal dysmotility- continue minced and moist diet (6) Takotsubo cardiomyopathy: Plan: Dx on recent admission (d/c 07/19) Cath 07/15 showed with Mild to moderate nonobstructive coronary artery disease in major epicardial coronary arteries-25% proximal to mid LAD, 40-50% distal circumflex involving bifurcation with OM 2,Severe small branch vessel disease, and80% proximal D1 (<2 mm diameter) Echo 07/12 w/ hypokinesis of the mid to distal anterior wall and septum with akinetic anterior wall. Ejection fraction is estimated at 40%. -> repeat 07/18 showed EF 50% with improvement in wall motion abnormalities ECG here with deep T wave inversions in anterior leads but troponin serially negative x 3 No chest pains Continue home metoprolol, Lasix, magnesium, Pradaxa, Plavix, and statin (7) Ambulatory dysfunction: Plan: 09/15 to recent fall was discharged to [facility] 07/19 patient's daughter would not like for her to return to [facility], with [facility] but they won't take her knowing she's local [employer] placement[facility] PT/[facility] consulted-recommends rehab (8) Left hip pain: Plan: Add lidocaine patch as noted above, could be tendinitis at insertion site at ASIS Plan Chronic stable diagnoses: NSVT - none this admission, continue metoprolol HTN - BPs normal, continue metoprolol and Lasix with holding precautions B12 deficiency - continue daily supplement PPM - functioning appropriately, placed for AV block COPD - continue home inhaler as needed urinary incontinence - external cath ordered Paroxysmal atrial fibrillation-in a paced rhythm on telemetry, continue Pradaxa, metoprolol VTE ppx: Pradaxa Code status: DNR/DNI Dispo: Continued stay but downgrade from tele to med/surg, medically stable for dc to SNF but awaiting insurance auth Discussed her care with [id number], Bk, on 07/30 Admission and Anticipated Discharge Date Admission Date: July 29, 2024 Subjective Doing well, mild cough. Still with some pain over left hip but improved with lidocaine patch Tele with NSR, PVCs, rates 50-60s Physical Exam Constitutional: WD/WN, vitals as above Respiratory: normal respiratory effort and + cough Auscultation: lungs clear to auscultation bilaterally Cardiovascular: RRR, no murmur, no edema Gastrointestinal (Abdomen): Inspection/Auscultation: normal bowel sounds; abdomen not distended Percussion/Palpation: abdomen soft Musculoskeletal: Extremities: extremities normal to inspection (With positive TTP over left ASIS) Neurologic: no focal motor deficits Psychiatric: A+Ox3, euthymic affect Results & Data Results & Data Vital Signs (Past 12 Hours) Vital Signs Temp Pulse Pulse Resp BP Pulse Ox O2 Del Method 07/31/24 15:55 36.6 C 71 20 102/61 93 Nasal Cannula 07/31/24 13:45 66 07/31/24 12:23 36.6 C 65 16 111/68 91 Room Air 07/31/24 07:50 Nasal Cannula 07/31/24 07:38 36.7 C 62 16 93/55 L 95 Nasal Cannula 07/31/24 07:00 63 O2 Flow Rate 07/31/24 15:55 2 07/31/24 13:45 07/31/24 12:23 07/31/24 07:50 2 07/31/24 07:38 2 07/31/24 07:00 Laboratory Results CMP, blood cxs reviewed PG Care Time/CCT Total # of Minutes Spent Total Time Spent with Patient: Total time spent is greater than 50% in coordination of care (as documented) at patient's floor/unit and/or counseling patient: Coding Level of Care Code 05423 SUB INP/OBS CARE 2/35MIN Diagnoses COVID U07.1 Acute respiratory failure due to COVID-19 U07.1; J96.00 Altered mental status R41.82 Compression fracture of L3 vertebra S32.030A Abdominal pain R10.9 Takotsubo cardiomyopathy I51.81 Ambulatory dysfunction R26.2 Left hip pain M25.552
[2024-07-31] MEDS: LIDOCAINE 5% 1 PATCH TD SCH (17:35)
[2024-07-31] MEDS: ALUMINUM/MAGNESIUM SUSP 30 ML UDC PO STA (22:44)
[2024-08-01 06:53] LABS: BUN Creatinine Ratio 34.3 (10-20); Calcium 8.3 mg/dl (8.6-10.3); Creatinine Clr Calc Pharmacy 59.9 ml/min; Magnesium 2.3 mg/dl (1.7-2.4); Potassium 4.6 mmol/L (3.5-5.1)
[2024-08-01 07:28] VITALS: BP 109/59; RESP 16; TEMP 97.3; O2SAT 91
[2024-08-01 11:29] VITALS: PULSE 77
--- NOTE | 2024-08-01 11:29 | Discharge Summary ---
Discharge Summary Date of Service August 01, 2024 Principal Dx & Hospital Course #1 = Principal Diagnosis (1) COVID: Presented from a SNF with confusion, hypoxia, cough, shortness of breath x1 day. Tested positive for COVID-19 CXR with improved small left pleural effusion from previous admission CTA with subsegmental atelectasis/airspace disease in RML and bilateral LL Remains afebrile, initially requiring 5L oxygen via nasal cannula and now weaned down to room air at rest Received daily dexamethasone 6 mg IV x 3 days and convert to 6 Mg p.o. once daily x 7 more days after discharge Received remdesivir x 3 doses-none further needed after discharge Continue incentive spirometry Q1H Check 2 step prior to discharge from rehab Follow-up chest CT in 2 months to ensure resolution of previous infiltrates (2) Acute respiratory failure due to COVID-19: Improving as noted above. At baseline since last admission for CHF, patient uses 2 L NC BNP 327, and with much improved heart failure since last admission do not suspect secondary bacterial PNA as imaging improved from recent admission, completed course of antibiotics, procalcitonin negative, no signs of infection at this time - defer abx blood cultures no growth to date-follow Continue home p.o. Lasix 20 mg daily Continue Decadron to complete a 10-day course Continue Combivent as needed (3) Altered mental status: Acute metabolic encephalopathy suspect 2/2 to COVID infection and hypoxemia-now resolved CT head negative UA negative (4) Compression fracture of L3 vertebra: Age-related osteoporosis with current pathologic fracture, L3 vertebra not noted during imaging during previous admission Patient does not remember any falls. Is having some lower back pain and left hip pain As per patient's daughter has been ambulating on her own at [facility], daughter was not aware of any falls A/P CT noted acute appearing L3 superior endplate compression fracture with approximately 10 to 15% height loss patient denies back pain however reports left-sided hip pain which she thinks was present since the last admission when she was stuck in her bathtub x 3 days Added lidocaine patch to left hip which is helping Continue Tylenol prn, and oxy prn for moderate-severe pain Needs workup for osteoporosis as an outpatient (5) Abdominal pain: Suspect could be due to gas pains and constipation-finally moved her bowels in 07/30 and again on 12/18 and no further abdominal pain Continue docusate CT AP negative for acute abd changes, UA without infection With a hx of esophageal dysmotility-needs slippery diet and remain upright after meals (6) Takotsubo cardiomyopathy: Dx on recent admission (d/c 07/19) Cath 07/15 showed with Mild to moderate nonobstructive coronary artery disease in major epicardial coronary arteries-25% proximal to mid LAD, 40-50% distal circumflex involving bifurcation with OM 2,Severe small branch vessel disease, and80% proximal D1 (<2 mm diameter) Echo 07/12 w/ hypokinesis of the mid to distal anterior wall and septum with akinetic anterior wall. Ejection fraction is estimated at 40%. -> repeat 07/18 showed EF 50% with improvement in wall motion abnormalities ECG here with deep T wave inversions in anterior leads but troponin serially negative x 3 No chest pains Continue home metoprolol, Lasix, magnesium, Pradaxa, Plavix, and statin Follow-up with cardiology as an outpatient (7) Ambulatory dysfunction: 09/15 to recent fall was discharged to [facility] 07/19 and returned here with COVID-19 Return to [facility] for ongoing rehab and then likely will need personal-skilled nursing after that (8) Left hip pain: Likely contusion from previous fall into bathtub from a couple of weeks ago. Directly tender to palpation over ASIS No fractures on imaging Continue lidocaine patch, Tylenol, oxycodone as needed Plan Chronic stable diagnoses: NSVT - none this admission, continue metoprolol HTN - BPs normal, continue metoprolol and Lasix B12 deficiency - continue daily supplement PPM - functioning appropriately, placed for AV block COPD - continue home inhaler as needed urinary incontinence -chronic issue Paroxysmal atrial fibrillation-in a paced rhythm on telemetry, continue Pradaxa, metoprolol Right breast nodule-seen during previous admission-needs follow-up diagnostic mammogram and diagnostic ultrasound as an outpatient VTE ppx: Pradaxa Code status: DNR/DNI Dispo: DC to [facility] SNF Discussed her care with [id number], Bk, on 07/30 and again on 08/01 on the phone Admission HPI Per Admitting Provider Patient is a 79-year-old female who presents from [facility] with a past medical history of Takotsubo cardiomyopathy, NSVT, hypertension, breast mass, B12 deficiency, esophageal stricture, COPD. she was recently discharged to [facility] for rehab on 07/19 after diagnosis of Takotsubo cardiomyopathy and pneumonia. following history was obtained by the patient's daughter the patient's confusion. As per the patient's daughter she was doing really well at [facility] for the first few days and then began to decline. She has only received physical therapy 5x while there, she is unaware of any falls but has found her mother ambulating on her own. She uses a walker with 4 wheels at baseline. She was brought in today because her daughter went to visit her and noted that she was confused, she felt like her words were coming out of her mouth but when she did speak her words were confused and did not make sense. She also has felt like the patient has been unsteady and shaky today. The patient has had a cough since she left the hospital, likely secondary to pneumonia. She has also had left-sided back pain since her fall that originally brought her in during her previous admission. The patient is complaining of abdominal pain on palpation today. When asked the patient stated she has had chest pain today that is central, although appears confused. She stated that it is no longer there but then also stated that it is still there; currently a poor historian given acute confusion. The patient's daughter stated that she quit smoking during her previous admission, currently not requiring nicotine patch. She lived at home previous to recent admission. Daughter is with the patient and may not be able to live at home alone again, and did not like the care [facility], would like to be referred to Center care on discharge. Case management consult placed. 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 She does have a living will stating DNR/DNI. Discharge Exam Constitutional WD/WN, vitals as above Respiratory normal respiratory effort and + cough Auscultation: lungs clear to auscultation bilaterally Cardiovascular RRR, no murmur, no edema Gastrointestinal (Abdomen) Inspection/Auscultation: normal bowel sounds; abdomen not distended Percussion/Palpation: abdomen soft Musculoskeletal Extremities: extremities normal to inspection (With positive TTP over left ASIS) Neurologic no focal motor deficits Psychiatric A+Ox3, euthymic affect Discharge Plan Discharge Items Patient Disposition: Transfer [facility] Reason For Visit: COVID, YRN Discharge Diagnosis: COVID-19 Acute encephalopathy Acute on chronic respiratory failure with hypoxemia Left hip pain Condition on Discharge: Good Activity: As commented below Lifting: Gradually increase as tolerated Bathing: No limitations Exercise/Sports: Gradually increase as tolerated Weightbearing: Full weightbearing Non-emergency contact: Primary Care Provider Call non-emergency contact if: you have any medication questions, your symptoms worsen, your pain is not controlled and you have a fever Follow-up/Referrals: Hannah Marshall CRNP [Primary Care Provider] - Diet: Low Sodium (2gm) Fluids: 1500ml (6 cups) Addtl Attending Provider Instructions: Please finish out 7 more days of the oral dexamethasone for your COVID-19 hypoxemia and bronchitis. Please have a repeat CT scan of the chest in 2 months as recommended previously to ensure that the infiltrates in your lungs clear out. You will need to have your oxygen levels tested with walking prior to discharge from the rehab to see how much oxygen you will need when you leave the rehab. Pending Studies at Discharge: Yes (Blood cultures-no growth to date) Stand-Alone Forms: My [facility] Skilled Items Patient informed of condition?: Yes DNR: Yes Discharge Level of Care: Skilled Communicable Disease: Yes (COVID-19) Discharge Prognosis: Improving Lines: None Urinary Catheter: No Medications and DC Order Prescriptions: New oxycodone 5 mg Tablet 5 mg PO Q6 PRN (Reason: moderate-severe pain) Qty: 10 0RF Continued cholecalciferol (vitamin D3) 125 mcg (5,000 unit) capsule 5,000 units PO DAILY Qty: 90 0RF Rx Instructions: Unable to verify OTC meds at this date/time. Calcium 600 + Minerals 600 mg calcium- 200 unit tablet 1 tab PO DAILY Rx Instructions: Unable to verify OTC meds at this date/time. clobetasol 0.05 % ointment 1 applic topical BID PRN (Reason: psoriasis) Qty: 1 1RF docusate sodium 100 mg capsule 100 mg PO UD Patient Comments: 100 mg PO Take 1 tablet in the AM and 2 tablets in PM; Rx Instructions: Unable to verify OTC meds at this date/time. Original Directions: 100mg by mouth in the morning and 200mg by mouth in the evening carboxymethylcellulose sodium [Refresh Plus] 0.5 % dropperette 1 drp ophthalmic (eye) QID Rx Instructions: Unable to verify OTC meds at this date/time. Ocuvite Eye Health 50 mg-15 unit- 4.5 mg-2.5 mg Tablet,Chewable 1 tab PO QAM Rx Instructions: Unable to verify OTC meds at this date/time. famotidine 20 mg tablet 20 mg PO DAILY meclizine 25 mg tablet 25 mg PO TID PRN (Reason: Vertigo) fluticasone propionate 50 mcg/actuation [place],Suspension 1 spray INTRANASAL Q OTHER DAY Rx Instructions: Unable to verify OTC meds at this date/time. dabigatran etexilate 150 mg capsule 150 mg PO BID atorvastatin 40 mg Tablet 40 mg PO QAM Qty: 30 0RF acetaminophen 325 mg Tablet 650 mg PO Q6H PRN (Reason: pain ) Qty: 60 0RF metoprolol succinate 50 mg Tablet Extended Release 24 Hr 50 mg PO HS Qty: 30 0RF clopidogrel 75 mg Tablet 75 mg PO QAM Qty: 30 0RF magnesium oxide 400 mg (241.3 mg magnesium) Tablet 400 mg PO BID Qty: 60 0RF furosemide 20 mg Tablet 20 mg PO QAM Qty: 30 0RF nystatin [Nystop] 100,000 unit/gram Powder 1 applic EXT PRN PRN (Reason: rash in skin folds) Qty: 15 0RF Combivent Respimat 20-100 mcg/actuation mist 1 puff INHALATION QID MDD 6 puffs/24hrs PRN (Reason: cough or wheeze) Qty: 0 0RF cyanocobalamin (vitamin B-12) 1,000 mcg capsule 1,000 mcg PO DAILY Qty: 30 0RF Changed lidocaine 5 % Adhesive Patch,Medicated 2 patch transdermal DAILY@2000 Qty: 15 0RF Discontinued doxycycline hyclate 100 mg Capsule 100 mg PO Q12H Qty: 1 0RF Discharge Orders: Discharge Order (Routine); Ordered 08/01/24 Ordered By: Yancy Lopez Admission Data Admit Date/Time: 07/29/24 18:47 Attending Provider: Yancy Lopez Admit Provider: Melissa Vela Primary Care Provider: Hannah Marshall Other Interventions: Discharge Summary Assessment (RN) Last Done: 08/01/24 11:29 Hospital Stay Data Diagnostic Imagining Performed 07/29/24 16:14 CT abd pelvis IV con only Stat CT angio chest PE protocol Stat 07/29/24 16:15 CT head/brain wo con Stat Pending Results Patient Have Any Pending Studies at Discharge: Yes (Blood cultures-no growth to date) Discharge Instructions Given to Patient (Per Discharging Provider) Please finish out 7 more days of the oral dexamethasone for your COVID-19 hypoxemia and bronchitis. Please have a repeat CT scan of the chest in 2 months as recommended previously to ensure that the infiltrates in your lungs clear out. You will need to have your oxygen levels tested with walking prior to discharge from the rehab to see how much oxygen you will need when you leave the rehab. Total Time Total Time Spent Total Time Spent (In Minutes): 35 min Coding Level of Care Code 67917 INP/OBS DISCH >30 MIN Diagnoses COVID U07.1 Acute respiratory failure due to COVID-19 U07.1; J96.00 Altered mental status R41.82 Compression fracture of L3 vertebra S32.030A Abdominal pain R10.9 Takotsubo cardiomyopathy I51.81 Ambulatory dysfunction R26.2 Left hip pain M25.552
== END 2024-08-01 11:52 | DRG 177 ==
LOC: ED 14:53 → 2W 18:47